=== PATIENT | male | born 1965 | race Caucasian/White ===

== ENCOUNTER 2024-02-20 17:08 | Emergency (ER) | payer MEDICARE, SELFPAY ==
[2024-02-20 17:08] VITALS: BP 160/107; PULSE 115; RESP 18; TEMP 36.8; O2SAT 98; BMI 24.2
--- NOTE | 2024-02-20 17:09 | CT_ITS ---
PROCEDURE INFORMATION: Exam: CTA Head With Contrast, Arteriography Exam date and time: 02/20/2024 5:26 PM Age: 58 years old Clinical indication: Stroke-like symptoms; Speech disturbance; Additional info: Possible stroke, R pupil>l difficult word find TECHNIQUE: Imaging protocol: Computed tomographic angiography of the head with contrast. Exam focused on the arteries. 3D rendering (Not supervised by radiologist): MIP and/or 3D reconstructed images were created by the technologist. Radiation optimization: All CT scans at this facility use at least one of these dose optimization techniques: automated exposure control; mA and/or kV adjustment per patient size (includes targeted exams where dose is matched to clinical indication); or iterative reconstruction. Contrast material: ISOVUE; Contrast volume: 80 ml; Contrast route: INTRAVENOUS (IV); COMPARISON: CT HEAD/BRAIN WO CON 02/20/2024 5:23 PM FINDINGS: ANTERIOR CIRCULATION: Right internal carotid artery: Intracranial segment is patent with no significant stenosis. No aneurysm. Right middle cerebral artery: No occlusion or significant stenosis. No aneurysm. Right anterior cerebral artery: No occlusion or significant stenosis. No aneurysm. Left internal carotid artery: Intracranial segment is patent with no significant stenosis. No aneurysm. Left middle cerebral artery: No occlusion or significant stenosis. No aneurysm. Left anterior cerebral artery: No occlusion or significant stenosis. No aneurysm. POSTERIOR CIRCULATION: Right vertebral artery: No occlusion or aneurysm. Moderate stenosis in the V4 segment of the right vertebral artery secondary to calcified atherosclerotic plaque. Left vertebral artery: No occlusion or significant stenosis. No aneurysm. Basilar artery: No occlusion or significant stenosis. No aneurysm. Right posterior cerebral artery: No occlusion or significant stenosis. No aneurysm. Left posterior cerebral artery: No occlusion or significant stenosis. No aneurysm. Brain: No definite mass, mass effect, or midline shift. Cerebral ventricles: No ventriculomegaly. Bones/joints: Unremarkable. No acute fracture. Soft tissues: Unremarkable. IMPRESSION: 1. No large vessel occlusion. 2. Moderate stenosis in the V4 segment of the right vertebral artery secondary calcified plaque.
--- NOTE | 2024-02-20 17:09 | CT_ITS ---
PROCEDURE INFORMATION: Exam: CT Head Without Contrast Exam date and time: 02/20/2024 5:23 PM Age: 58 years old Clinical indication: Stroke-like symptoms; Speech disturbance; Additional info: Possible stroke, R pupil>l difficult word find TECHNIQUE: Imaging protocol: Computed tomography of the head without contrast. Radiation optimization: All CT scans at this facility use at least one of these dose optimization techniques: automated exposure control; mA and/or kV adjustment per patient size (includes targeted exams where dose is matched to clinical indication); or iterative reconstruction. Other technique: STROKE PROTOCOL was implemented. COMPARISON: CT CERVICAL SPINE WO CON 02/20/2024 5:23 PM FINDINGS: Brain: Diffuse cerebral atrophy and white matter microangiopathic chronic ischemia in both hemispheres. No CT evidence of acute infarct, hemorrhage, mass or mass effect. Cerebral ventricles: No ventriculomegaly. Paranasal sinuses: Trace chronic bilateral maxillary sinusitis. The remaining paranasal sinuses are clear. Mastoid air cells: Visualized mastoid air cells are well aerated. Bones: Unremarkable. No acute fracture. Soft tissues: Unremarkable. IMPRESSION: Senescent brain changes but no CT evidence of acute brain injury. ASSESSMENT: ASPECTS ([place] Stroke Program Early CT Score) is 10.
--- NOTE | 2024-02-20 17:09 | CT_ITS ---
PROCEDURE INFORMATION: Exam: CTA Neck With Contrast Exam date and time: 02/20/2024 5:26 PM Age: 58 years old Clinical indication: Stroke-like symptoms; Speech disturbance; Additional info: Possible stroke, R pupil>l difficult word find TECHNIQUE: Imaging protocol: Computed tomographic angiography of the neck with contrast. Exam focused on the cervical segments of the vasculature. 3D rendering (Not supervised by radiologist): MIP and/or 3D reconstructed images were created by the technologist. Radiation optimization: All CT scans at this facility use at least one of these dose optimization techniques: automated exposure control; mA and/or kV adjustment per patient size (includes targeted exams where dose is matched to clinical indication); or iterative reconstruction. Contrast material: ISOVUE; Contrast volume: 80 ml; Contrast route: INTRAVENOUS (IV); COMPARISON: CT CERVICAL SPINE WO CON 02/20/2024 5:23 PM FINDINGS: Right common carotid artery: No stenosis. No dissection or occlusion. Right internal carotid artery: No stenosis of the extracranial segment. No dissection or occlusion. Right external carotid artery: No occlusion or stenosis of the origin. Left common carotid artery: No stenosis. No dissection or occlusion. Left internal carotid artery: No stenosis of the extracranial segment. No dissection or occlusion. Left external carotid artery: No occlusion or stenosis of the origin. Right vertebral artery: Moderate stenosis (approximately 50%) of the V4 segment of the right vertebral artery. No dissection or occlusion. Left vertebral artery: No stenosis. No dissection or occlusion. Soft tissues: Findings suggesting esophagectomy with gastric pull-through. Bones/joints: No acute fracture. IMPRESSION: No large vessel occlusion in the neck. There is a 50% stenosis in the V4 segment of the right vertebral artery. REFERENCES: NASCET CRITERIA. The degree of stenosis in the cervical segment of the internal carotid artery is based on NASCET criteria. Normal is no stenosis. Mild is less than 50% stenosis. Moderate is 50-69% stenosis. Severe is 70% to 99% stenosis. Total occlusion is no detectable patent lumen.
--- NOTE | 2024-02-20 17:11 | CT_ITS ---
PROCEDURE INFORMATION: Exam: CT Cervical Spine Without Contrast Exam date and time: 02/20/2024 5:23 PM Age: 58 years old Clinical indication: Injury or trauma; Fall; Other: Pain TECHNIQUE: Imaging protocol: Computed tomography of the cervical spine without contrast. Radiation optimization: All CT scans at this facility use at least one of these dose optimization techniques: automated exposure control; mA and/or kV adjustment per patient size (includes targeted exams where dose is matched to clinical indication); or iterative reconstruction. COMPARISON: CT HEAD/BRAIN WO CON 02/20/2024 5:23 PM FINDINGS: Bones: No acute fracture. Normal alignment. No significant disc bulge or herniation. No severe spinal canal stenosis. No significant neural foraminal narrowing. Lungs: Lung apices are normal. Soft tissues: Unremarkable. Suspected prior esophagectomy with gastric pull-through. IMPRESSION: No acute findings.
--- NOTE | 2024-02-20 17:11 | HMH.EDGENADL ---
Discharge Plan Disposition Chief Complaint: Altered Mental Status Clinical Impressions Clinical Impression: Encephalopathy, Acute CVA (cerebrovascular accident) Instructions Patient Instructions: DI for Altered Mental Status Discharge ED Provider: Uche Ramirez General Adult HPI General Chief complaint: Altered Mental Status Stated complaint: Fall Time Seen by Provider: 02/20/24 17:08 History of Present Illness HPI narrative: Patient is a 58-year-old male with largely unknown past medical history, has had previous CVA with reported no significant residual however he does get around his home with a walker and lives alone who presents emergency department for being found down. Patient states that he fell at 930 this morning however answers multiple questions with 930 . Per EMS report patient was found by his neighbor who called 911, patient states that he called 911 gives conflicting report. He denies any pain. He is encephalopathic. No other acute complaints at this time. Related Data Allergies Allergy/AdvReac Type Severity Reaction Status Date / Time No Known Allergies Allergy Verified 02/20/24 17:28 [facility] Disclaimer: The information contained in this section may have been updated after the patient was seen, as this information can be updated by other users. Social History Smoking Status: Unknown if ever smoked alcohol intake: current current occupational status: other Travel in the last 8 weeks: None ROS Obtained: Yes Systems reviewed as appropriate & no additional complaints except as documented Physical Exam General General appearance: alert and in no apparent distress Head Head exam: atraumatic and normocephalic Eye Eye exam: Present EOMI; Absent PERRL (Asymmetric pupils right greater than left) ENT ENT exam: Present mucous membranes moist Neck Neck exam: Present normal inspection Chest Chest inspection: Present normal inspection and symmetric chest wall rise Respiratory Respiratory exam: Present normal lung sounds bilaterally; Absent respiratory distress Cardiovascular Cardiovascular exam: Present regular rate and normal rhythm Abdominal Exam Abdominal exam: Present soft; Absent tenderness Extremities Exam Extremities exam: Present other (Scattered abrasions bilateral upper extremities) Neurological Exam Neurological exam: Present alert and oriented X3; Absent CN II-XII intact (Asymmetric pupils right greater than left, remainder of 2 through 12 intact grossly) Skin Skin exam: Present warm and dry Medical Decision Making Medical Records Screening: Per USPSTF and CDC recommendations, given the prevalence of disease in our region, it is our hospital?s policy to screen for HIV and viral Hepatitis for all patients aged 18 and over and those with ongoing risk factors. [place] Inquiry Pt receiving controlled substance: No Vital Signs: 02/20/24 17:08 Temperature 98.2 F Temperature Source Oral Pulse Rate [Radial] 115 H Respiratory Rate 18 Blood Pressure [Right Arm] 160/107 H Blood Pressure Mean [Right Arm] 124 Blood Pressure Source [Right Arm] Automatic Cuff Blood Pressure Position [Right Arm] Sitting 02 Sat by Pulse Oximetry 98 Oxygen Delivery Method Room Air Lab Data Lab Results 02/20/24 17:16: WBC 3.7 L, RBC 4.77, Hgb 12.0 L, Hct 38.3 L, MCV 80.2, MCH 25.0 L, MCHC 31.2 L, RDW 20.9 H, Plt Count 236, MPV 6.8 L, Neut % (Auto) 69.2, Lymph % (Auto) 21.1, [place] % (Auto) 6.1, Eos % (Auto) 0.3, Baso % (Auto) 3.3 H, Neut # (Auto) 2.6, Lymph # (Auto) 0.8, [place] # (Auto) 0.2, Eos # (Auto) 0.0, Baso # (Auto) 0.1, Sodium 139, Potassium 4.7, Chloride 97 L, Carbon Dioxide 18 L, Anion Gap 28.7 H, BUN 12, Creatinine 1.00, Estimated Creat Clear 77, Estimated GFR 77, Est GFR ( Amer) 93, Glucose 85, Calcium 10.3 H, Total Bilirubin 0.6, AST 29, ALT 17, Alkaline Phosphatase 46, Total Creatine Kinase 241 H, Total Protein 9.2 H, Albumin 5.2 H, Globulin 4.0 H, Albumin/Globulin Ratio 1.3, Triglycerides 249 H, Cholesterol 346 H, LDL Cholesterol Direct 168.55 H, VLDL Cholesterol 50 H, HDL Cholesterol 163 H, Cholesterol/HDL Ratio 2.1, Plasma/Serum Alcohol < 10 02/20/24 17:51: Urine Color Yellow, Urine Appearance Clear, Urine pH 6.0, Ur Specific [place] 1.020, Urine Protein 2+ A, Urine Glucose (UA) Negative, Urine Ketones 2+, Urine Blood Trace-i, Urine Nitrate Negative, Urine Bilirubin Negative, Urine Urobilinogen 0.2, Ur Leukocyte Esterase Negative 02/20/24 17:16 02/20/24 17:16 Orders (Tests/Meds): ED MEDICATIONS Generic Name Dose Route Start Last Admin Trade Name Freq PRN Reason Stop Dose Admin Lactated Ringer's 1,000 mls @ 999 mls/hr 02/20/24 17:51 Lactated Ringer's 1000 Ml Bag IV 02/20/24 18:51 .Q1H1M ONE Sodium Chloride 10 ml 02/20/24 17:09 Sodium Chloride 0.9% 10ml Flush Syringe IV 03/21/24 17:08 NEEDED PRN Maintain IV Site Sodium Chloride 10 ml 02/20/24 17:20 02/20/24 17:23 Sodium Chloride 0.9% 10ml Syr (Rad Only) IV 03/21/24 17:19 10 ml NEEDED PRN Administration Maintain IV Site Discontinued Medications Generic Name Dose Route Start Last Admin Trade Name Asadq PRN Reason Stop Dose Admin Iopamidol 80 ml 02/20/24 17:20 02/20/24 17:23 Iopamidol-370 (76%);100ml Bottle IV 02/20/24 17:21 80 ml ONCE ONE Administration Sodium Chloride 50 ml 02/20/24 17:20 02/20/24 17:23 0.9 % Sodium Chloride 50 Ml Vial IV 02/20/24 17:21 50 ml ONCE ONE Administration ORDERS Category Date Time Status CT angio head Stat Cat Scan 02/20/24 17:[address] angio neck Stat Cat Scan 02/20/24 17:[address] cervical spine wo con Stat Cat Scan 02/20/24 17:[address] head/brain wo con Stat Cat Scan 02/20/24 17:09 Completed Activated Partial Thrombo Time Stat Lab 02/20/24 17:16 Received Ammonia Stat Lab 02/20/24 17:09 Ordered CK [Creatine Kinase] Stat Lab 02/20/24 17:16 Results Complete Blood Count Auto Diff Stat Lab 02/20/24 17:16 Completed Comprehensive Metabolic Panel Stat Lab 02/20/24 17:16 Results Drug Screen,Urine Stat Lab 02/20/24 17:51 Received Ethyl Alcohol Stat Lab 02/20/24 17:16 Completed Lipid Panel Stat Lab 02/20/24 17:16 Results Prothrombin Time INR Stat Lab 02/20/24 17:16 Received Troponin I Q3H Lab 02/20/24 20:15 Ordered Troponin I Q3H Lab 02/20/24 23:15 Ordered Troponin I Stat Lab 02/20/24 17:16 Results Urinalysis and Microscopic Stat Lab 02/20/24 17:51 Results ECG Request Stat Y 02/20/24 17:09 Ordered ECG Data Tracing #1: Independently interpreted by me rate is 116, rhythm is regular, axis is normal, no ST elevation in anatomical contiguous leads, QTc 358 Medical Decision Narrative: In summary patient is a 58-year-old male with past medical history described above who presents emergency department after being found down. Patient is hemodynamically stable upon arrival, c-collar will be initiated given that he was found down with unknown functional baseline and has anisocoria and delayed word finding. Fingerstick nonactionable. Differential includes CVA, concussion, among others. Workup be conducted with hematologic labs, CTA head and neck, noncontrasted CT scan of the head cervical spine. Initial workup reviewed by me, hematologic labs are largely nonactionable, no RUTHIE or critical electrolyte abnormality although his anion gap is elevated, CK2 4 1, alcohol undetectably low. Patient was given a liter of crystalloid. The case was discussed with [facility] stroke nurse behavioral health care who recommends 324 mg of aspirin which will be administered. Dr. Haynes graciously accepted patient for transfer for continued evaluation at this time given undifferentiated Anisocoria in the history of previous stroke and altered mental status. Critical Care Critical Care Time Critical Care Time: Yes Attestation: On , the high probability of a clinically significant, sudden or life threatening deterioration of the following system(s) required my full and direct attention, intervention and personal management. The time I documented below is in addition to time spent performing reported procedures but includes the following listed in this critical care notation. Total Time Total Critical Care Time: 55
--- NOTE | 2024-02-20 17:13 | PC.NURSE ---
Manual BP: 190/110 FSBS: 91
--- NOTE | 2024-02-20 17:14 | PC.NURSE ---
Called RAD for pt to go to CT scan
--- NOTE | 2024-02-20 17:18 | PC.NURSE ---
PT to CT via stretcher
[2024-02-20] MEDS: SODIUM CHLORIDE 0.9% 10ML SYR (RAD ONLY) 10 ML IV (17:23)
[2024-02-20] MEDS: 0.9 % SODIUM CHLORIDE 50 ML VIAL IV (17:23)
[2024-02-20] MEDS: IOPAMIDOL-370 (76%);100ML BOTTLE 80 ML IV (17:23)
--- NOTE | 2024-02-20 17:24 | HMH.ITSTN ---
GFR completion/results were overrode for the use of contrast media by the Physician on a risk vs. benefit situation with this patient.
[2024-02-20 17:29] LABS: Basophils # 0.1 K/mm3 (0-0.2); Basophils % 3.3 % (0.1-2.0); Eosinophils % 0.3 % (0.1-12.0); Hematocrit 38.3 % (42.0-52.0); Lymphocytes # 0.8 K/mm3 (0.7-4.5); Lymphocytes % 21.1 % (10-50); Mean Corpuscular HGB Conc 31.2 g/dL (31.8-35.4); Mean Corpuscular Volume 80.2 fl (80-94); Mean Platelet Volume 6.8 fl (7.4-10.4); Monocytes # 0.2 K/mm3 (0.1-1.0); Monocytes % 6.1 % (1.7-9.3); Neutrophils # 2.6 K/mm3 (1.8-7.8); Neutrophils % 69.2 % (37.0-80.0); Platelet Count 236 K/mm3 (142-424); Red Blood Count 4.77 M/mm3 (4.60-6.20); Red Cell Distribution Width 20.9 % (11.5-17.5); White Blood Count 3.7 K/mm3 (4.8-10.8)
--- NOTE | 2024-02-20 17:31 | PC.NURSE ---
SPOKE WITH PT'S MOTHER SONU MILLS [phone], GAVE NUMBER TO CALL PT'S AUNT MARYBETH [phone]. AUNT USUALLY CHECKS ON PT. SPOKE WITH AUNT, REPORTS PT HAS BEEN WEAK FOR ABOUT 2 WEEKS, PT IS A DAILY DRINKER. APPROX LKN BEFORE LUNCH TIME YESTERDAY
--- NOTE | 2024-02-20 17:33 | ECG_ITS ---
APPROVED REPORT Exam: Resting ECG HR:116 bpm ECG Measurements Heart Rate 116 AXES ME 136 P -23 QRSd 88 QRS 63 QT 289 T 63 QTc 358 Conclusion SINUS TACHYCARDIA POSSIBLE LEFT ATRIAL ENLARGEMENT [-0.1mV P-WAVE IN V1/V2] NONSPECIFIC T-WAVE ABNORMALITY No STEMI Electronically signed by : KRISTAN BANKS, 02/26/2024 23:42:13
[2024-02-20 17:46] LABS: Activated Partial Thrombo Time 30.8 seconds (22.8-30.6); Alanine Aminotransferase 17 U/L (12-78); Albumin Level 5.2 g/dl (3.5-5.0); Albumin/Globulin Ratio 1.3 (1.1-1.8); Alkaline Phosphatase 46 U/L (38-126); Anion Gap 28.7 mEq/L (5-15); Aspartate Amino Transferase 29 U/L (17-59); Bilirubin,Total 0.6 mg/dl (0.2-1.3); Blood Urea Nitrogen 12 mg/dl (9-20); Calcium 10.3 mg/dl (8.4-10.2); Carbon Dioxide 18 mmol/L (22.0-30.0); Chloride 97 mmol/L (98-107); Creatine Kinase 241 U/L (55-170); Creatinine Clearance Estimated 77 mL/min (50-200); Estimated Glomerular Filt Rate 77 ml/min (>60); GFR (African American) 93 ML/MIN (>60); Glucose 85 mg/dl (74-100); INR 0.91 (0.9-1.1); Potassium 4.7 mmoL/L (3.5-5.1); Prothrombin Time 10.3 seconds (10.1-12.5); Sodium 139 mmol/L (136-145); Total Protein,Serum 9.2 g/dl (6.3-8.2); Triglycerides 249 mg/dl (30-150); VLDL Cholesterol 50 mg/dL (0-40)
[2024-02-20 17:52] LABS: Ethyl Alcohol < 10 mg/dl (0-10)
[2024-02-20 17:55] LABS: Chol/HDL Ratio 2.1 (1-3.5); Cholesterol 346 mg/dl (140-200); HDL Cholesterol 163 mg/dl (40-60)
[2024-02-20 17:55] LABS: Microscopic, Urine URINE MICROSCOPIC (MICROSCOPIC)
[2024-02-20 17:56] LABS: Direct LDL Cholesterol 168.55 mg/dL (100-129)
[2024-02-20 18:05] LABS: Appearance,Urine CLEAR (Clear); Blood, Urine TRACE-I (Negative); Color,Urine YELLOW (Yellow); Glucose,Urine (UA) Negative (Negative); Ketones,Urine 2+ (Negative); Leukocyte Esterase,Urine Negative (Negative); Nitrate,Urine Negative (Negative); Protein,Urine 2+ (Negative); Urobilinogen,Urine 0.2 EU/dl (0.2)
--- NOTE | 2024-02-20 18:07 | PC.NURSE ---
Called [facility] stroke navigator per Dr Ramirez to speak with them about this pt. Dr Ramirez is speaking with [facility] now
[2024-02-20 18:10] LABS: Bilirubin,Urine Negative (Negative)
[2024-02-20 18:14] LABS: Troponin I < 0.01 ng/ml (0.00-0.034)
[2024-02-20 18:20] LABS: Benzodiazepines Screen,Urine Negative ng/ml (<200)
[2024-02-20 18:21] LABS: Amphetamine/Metha Screen,Urine Negative ng/ml (<1000); Barbiturates Screen,Urine Negative ng/ml (<200)
[2024-02-20 18:22] LABS: Cannabinoid Screen,Urine Negative ng/ml (<50)
[2024-02-20 18:23] LABS: Cocaine Screen,Urine Negative ng/ml (<300); Methadone Screen,Urine Negative ng/ml (<300)
[2024-02-20] MEDS: ASPIRIN 81MG CHEWABLE TABLET 324 MG PO (18:23)
[2024-02-20 18:24] LABS: Opiate Screen,Urine Negative ng/ml (<300)
[2024-02-20] MEDS: LACTATED RINGERS 1000ML 1,000 ML 999 ML IV (18:24)
[2024-02-20 18:25] LABS: Phencyclidine Screen,Urine Negative ng/ml (<25)
[2024-02-20 18:27] LABS: Bacteria,Urine 1+ /lpf; RBC,Urine Occasional #/hpf (0-3); Squamous Epithelial Cell,Urine Occasional #/hpf (0-5); WBC,Urine Occasional #/hpf (0-3)
[2024-02-20] MEDS: levETIRAcetam 1,000 MG in 0.9 % SODIUM CHLORIDE 100 ML 220 MG IV (18:48)
--- NOTE | 2024-02-20 20:03 | PC.NURSE ---
Report called to SHANELL Goldstein
[2024-02-20 20:24] VITALS: BP 151/90; PULSE 82; RESP 14; TEMP 36.9; O2SAT 97
== END 2024-02-20 20:25 | disposition short-term general hospital (02) ==
PROVIDERS: Emergency Provider Emergency Medicine
DX: G93.40 Encephalopathy, unspecified (principal); I63.9 Cerebral infarction, unspecified; R41.82 Altered mental status, unspecified
CPT/HCPCS: 70450; 70496; 70498; 72125; 80053; 80061; 80307; 80320; 81001; 82550; 84484; 85025; 85610; 85730; 93005; 96360; 96361; 96374; 99291; G0480; J1953; J7120; Q9967

== ENCOUNTER 2024-10-15 09:05 | Outpatient (CLI) | payer MEDICARE, SELFPAY ==
--- OUTSIDE RECORDS SUMMARY | 2024-08-24 05:36 | XMS_ITS | Continuity of Care Document ---
Author Organization [facility] [employer] Phone Care Team Providers Care Occasional Caregiver Name Role Phone TABATHA CAPONE Unavailable TABATHA CAPONE Admitting NO, FAMILY P Primary Care TABATHA CAPONE Primary Attending ALLERGIES AND ADVERSE REACTIONS FAMILY HISTORY MEDICATIONS SOCIAL HISTORY VITAL SIGNS HEALTH CONCERNS ENCOUNTERS CARE TEAM
--- OUTSIDE RECORDS SUMMARY | 2024-10-15 09:10 | XMS_ITS | Encounter Summary ---
Author Organization [facility] Address [address] [place] [address] Care Team Providers Care Director Hardware Name Role Phone Unavailable Primary Care Provider Unavailabl e Encounter Details Date Type Department Care Team (Late st Contact Info) Description 01/08/2019 Transcribed Document [facility] Family Medicine [address] [place] [address] ProviderMary Kate MD [address] [place] [address] Social History Tobacco Use Types Packs/Day Years Used Date Smoking Tobacco: Never Assessed Sex and Gender Information Value Date Recorded Sex Assigned at Not on file Legal Sex Male 5:22 PM CDT Gender Identity Not on file Sexual Orientation Not on file documented as of this encounter Miscellaneous Notes * Cerner Conversion Note - Mary Kate ProviderMD - 01/08/2019 6:00 PM CDT Discharge Summary, PT Entered On: 01/14/2019 7:57 EDT Performed On: 01/08/2019 18:00 EDT by YUMIKO YEH, PT Discharge Summary Reason for Discharge : Discharged from hospital Discharge Summary Comment, PT : At time of discharge from hospital, pt had met 2/3 acute care goals and was discharged home. At time of last PT treatment session, pt's functional status was documented as follows: BP assessed during treatment: at rest in long sitting 138/88 mmHg and after gait 129/83 mmHg. Supine-sit: Modified Independent with HOB elevated; sit-stand from EOB Supervision/ stand-sit UIC: SBA with verbal cues on proper hand placement for safety. He was Supervision during sitting and standing balance to put boxers on, and was Supervision with standing at sink to wash his face. He ambulated ~405' with RWx CGA. He demonstrated a slow pace and even step length. He did not lose his balance during gait. 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 Pt will perform 12-15 reps BLE ther-ex for improvement in ROM/strength. Patient will ambulate 100' with RWx CGA for household distances. Date to Meet : 01/12/2019 EDT 01/12/2019 EDT 01/13/2019 EDT Goal Status : Goal met Progressing, continue Goal met Date Met : 01/06/2019 EDT 01/08/2019 EDT YUMIKO YEH, PT - 01/14/2019 7:56 EDT YUMIKO YEH, PT - 01/14/2019 7:56 EDT YUMIKO YEH, PT - 01/14/2019 7:56 EDT Electronically signed by Jaron Larsen Conversion Supervisor [employer] at 08/08/2022 11:34 PM CDT documented in this encounter Plan of Treatment Not on file documented as of this encounter Visit Diagnoses Not on filedocumented in this encounter
--- OUTSIDE RECORDS SUMMARY | 2024-10-15 09:10 | XMS_ITS | Clinical Summary ---
Author Organization [facility] Address [address] [place] [id number] Care Team Providers Care Width Stripper Name Role Phone Unavailable Primary Care Provider Unavailabl e Social History Tobacco Use Types Packs/Day Years Used Date Smoking Tobacco: Never Assessed Sex and Gender Information Value Date Recorded Sex Assigned at Not on file Legal Sex Male 5:22 PM CDT Gender Identity Not on file Sexual Orientation Not on file Plan of Treatment Not on file
--- OUTSIDE RECORDS SUMMARY | 2024-10-15 09:10 | XMS_ITS | Encounter Summary ---
Author Organization [facility] Address [address] [place] [address] Care Team Providers Care Deicer Finisher Name Role Phone Unavailable Primary Care Provider Unavailabl e Encounter Details Date Type Department Care Team (Late st Contact Info) Description 03/04/2019 Transcribed Document [facility] [place] [facility] [address] [place] [address] ProviderMary Kate MD [address], [place] [id number] Social History Tobacco Use Types Packs/Day Years Used Date Smoking Tobacco: Never Assessed Sex and Gender Information Value Date Recorded Sex Assigned at Not on file Legal Sex Male 5:22 PM CDT Gender Identity Not on file Sexual Orientation Not on file documented as of this encounter Miscellaneous Notes * Cerner Conversion Note - Mary Kate ProviderMD - 03/04/2019 8:03 AM 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 Name: [place] Viet Vasquez/Sex: 1965 Male Med Rec #: [id number] Physician: RAZIA LANTIGUA MD-GAE Financial #: [id number] Pt. Type: O Room/Bed: [facility] [place]/ Admit/Disch: 03/04/19 07:03:00 - Institution: [facility]ayan - Case Attendance Entry 1 Entry 2 Entry 3 Case Attendee RAZIA LANTIGUA MD-GAE BROWNING, JANICE R, TAYLOR, KAREN J., RN JUNIOR UNDERWRITER-ANS Role Performed Surgeon/Proceduralist, PAYROLL AND BENEFITS COORDINATOR/Nurse Set Up And Lay Out Inspector Mechanic And Welder, First First Time In 03/04/19 07:57:00 03/04/19 07:55:00 03/04/19 07:55:00 Time Out 03/04/19 08:11:00 03/04/19 08:11:00 03/04/19 08:11:00 Procedure Esophagogastroduodenosco Esophagogastroduodenosco Esophagogastroduodenosco py, Gastric Biopsy py, Gastric Biopsy py, Gastric Biopsy Other Attendee Superficial Wound Closed By: Last Modified By: MARLENE OROZCO RN TAYLOR, KAREN J., RN TAYLOR, KAREN J., RN 03/04/19 08:09:39 03/04/19 08:09:39 03/04/19 08:09:39 Entry 4 Case Attendee TATYANA BHATT Performed Scrub, First Time In 03/04/19 07:55:00 Time Out 03/04/19 08:11:00 Procedure Esophagogastroduodenosco py, Gastric Biopsy Other Attendee Superficial Wound Closed By: Last Modified By: MALRENE OROZCO RN 03/04/19 08:09:39 [facility] - Case Attendance Audit 03/04/19 08:09:39 Gaming Table Operator: AIDEE Modifier: AIDEE 1 <+> Time Out 1 <*> Procedure Esophagogastroduodenoscopy, Gastric Biopsy 2 <+> Time Out 2 <*> Procedure Esophagogastroduodenoscopy, Gastric Biopsy 3 <+> Time Out 3 <*> Procedure Esophagogastroduodenoscopy, Gastric Biopsy 4 <+> Time Out 4 <*> Procedure Esophagogastroduodenoscopy, Gastric Biopsy 03/04/19 08:07:07 Gaming Table Operator: AIDEE Modifier: [email or web address] 1 <*> Procedure Esophagogastroduodenoscopy 2 <*> Procedure Esophagogastroduodenoscopy 3 <*> Procedure Esophagogastroduodenoscopy 4 <*> Procedure Esophagogastroduodenoscopy 03/04/19 07:57:39 Gaming Table Operator: AIDEE Modifier: PARVEZJ 1 <*> Time In 03/04/19 07:55:00 1 <*> Procedure Esophagogastroduodenoscopy [facility] - Case Times Entry 1 Patient In Room Time 03/04/19 07:55:00 Out Room Time 03/04/19 08:11:00 Anesthesia Start Time 03/04/19 07:55:00 Stop Time 03/04/19 08:11:00 Anesthesia Ready 03/04/19 07:57:00 Surgery / Procedure Times Start Time 03/04/19 08:03:00 Stop Time 03/04/19 08:09:00 Last Modified By: MARLENE OROZCO RN 03/04/19 08:09:34 [facility] - Case Times Audit 03/04/19 08:09:34 Gaming Table Operator: [email or web address] Modifier: [email or web address] <+> 1 Out Room Time <+> 1 Stop Time <+> 1 Stop Time 03/04/19 08:03:09 Gaming Table Operator: [email or web address] Modifier: [email or web address] <+> 1 Start Time [facility] - Cultures and Spec Summary Entry 1 Cultrures and Specimens Specimen Ordered: Yes Test(s) Routine/Path-Lab Requested/Final Disposition Last Modified By: MARLENE OROZCO RN 03/04/19 08:07:28 General Comments: mattie, distal esophagus biopsy [facility] - Delays Entry 1 Delay Reason Other Duration 0 Minute(s) Comment NO DELAY Last Modified By: MARLENE OROZCO RN 03/04/19 07:57:22 [facility] - Departure from OR Entry 1 Integumentary Assessment Integumentary WDL Assessment WDL Transfer/Handoff Transfer to PACU Phase I Post-op Transport Stretcher/Gurney Via Patient Transport MARLENE OROZCO RN, Accompanied by TAB ROJAS APRN-GERALDINE Last Modified By: MARLENE OROZCO RN 03/04/19 07:57:31 [facility] - Endoscopy Details Entry 1 Abdomen Procedure Soft, Non-Tender Assessment Procedure Abdomen 03/04/19 07:57:00 Assessment D/T Radio Frequency Ablation Last Modified By: MARLENE OROZCO RN 03/04/19 07:57:48 [facility] - Fire Risk Assessment Entry 1 Fire Info Surgical Site or 1- Yes Incision Above the Xyphoid Open O2 Source 1- Yes (Mask or Cannula) Available Ignition 1- Yes (ESU, Laser, Light Source) Fire Risk 3 Assessment Score Fire Score Fire Risk Yes Assessment Complete Fire Risk MARLENE OROZCO, lead web application developer Verified By Fire Risk 03/04/19 07:58:00 Assessment Verified Date/Time Fire Risk High Risk Protocol Yes Implemented Standard Fire Yes Safety Precautions Followed Last Modified By: MARLENE OROZCO RN 03/04/19 07:58:08 [facility] - General Case Body Repairer 1 Case Information OR Endo 02 [facility] Case Level 1 Room Verified Yes Wound Class II - Clean-Contaminated Specialty SN Gastroenterology Anesthesia Type MAC ASA Class 2 Diagnosis Preop Diagnosis history of zurdo fritz tear and severe esophagitis Postop Same As Preop No Postop Diagnosis hiatal hernia and esophagitis Last Modified By: MARLENE OROZCO RN 03/04/19 08:10:07 [facility] [place] - [place] Case Data Audit 03/04/19 08:10:07 Gaming Table Operator: [email or web address] Modifier: AIDEE <+> 1 Postop Diagnosis [facility] - Intraoperative Assessment Entry 1 Valid History / Yes Physical in Chart Preoperative Yes Checklist Reviewed/Evaluated Allergies Reviewed Yes Patient is Latex No Sensitive Level of WDL Consciousness (WDL = Alert, Oriented to Person, Place, and Time) Present Upon ECG monitored Arrival to OR Last Modified By: MARLENE OROZCO RN 03/04/19 07:59:19 [facility] - Intraoperative Equipment Entry 1 Type Scope Equipment Intraop Monitoring Electrocardiogram Three lead placement (ECG) Electrode Placement Blood Pressure Arm, left upper Location Pulse Oximeter Hand, right Probe Site Antiembolic Devices Scopes Flexible Endoscopes Gastroscope Used Scope Serial 2500 Number/Identificatio n Number Photo/Video Documentation Photo Yes Video No Last Modified By: MARLENE OROZCO RN 03/04/19 07:59:36 [facility] [place] - Patient Positioning Entry 1 Procedure Esophagogastroduodenosco py, Gastric Biopsy Body Position Lateral, right side up Left Arm Position Resting at side Right Arm Position Resting at side Left Leg Position Other Right Leg Position Other Position Comments Right leg over left leg uncrossed Feet Uncrossed Yes Pressure Points Yes Checked Positioning Devices Roll (Other) Positioned By MARLENE OROZCO RN Position Verified Positioning Yes Verified by Surgeon Last Modified By: MARLENE OROZCO RN 03/04/19 08:07:08 [facility] - Patient Positioning Audit 03/04/19 08:07:08 Gaming Table Operator: [email or web address] Modifier: [email or web address] 1 <*> Procedure Esophagogastroduodenoscopy [facility] - Sign In Entry 1 Patient, Site, Yes Procedure Identified Surgical Consent Yes Confirmed Relevant Surgical Yes Documents Available Surgical Site N/A Marked by person performing procedure Allergies No Airway Hypothermia Risk No Warming Measures No Taken Last Modified By: MARLENE OROZCO RN 03/04/19 08:00:23 [facility] - Sign Out Entry 1 RN Confirmation Surgical Yes Procedure(s) Identified Instrument, Sponge N/A and Sharps Counts Correct/Documented Equipment Problems N/A Documented Specimen Labeled Yes Correctly Urinary Catheter N/A Documented in IView Safety Checklist Yes Elements Complete? RN Sign Out MARLENE OROZCO RN Signature RN Sign Out 03/04/19 08:10:00 Signature Date/Time Plan of Care Outcome - Fire Risk OUTCOME STATEMENT: Goal met Patient is free from injury related to surgical fire Plan of Care Outcome - Pt Positioning OUTCOME STATEMENT: Goal met Absence of signs and symptoms of positioning injury. Plan of Care Outcome - Skin Prep OUTCOME STATEMENT: Goal met Intraoperative care is consistent with measures to prevent infection Plan of Care Outcome - Xray/Images OUTCOME STATEMENT: N/A Absence of observable signs or symptoms of radiation injury Plan of Care Outcome - Counts OUTCOME STATEMENT: N/A Absence of signs and symptoms of injury related to extraneous objects Last Modified By: MARLENE OROZCO RN 03/04/19 08:10:26 [facility] - Surgical Procedures Entry 1 Entry 2 Procedure Esophagogastroduodenosco Gastric Biopsy py Modifiers Additional Procedure Description Primary Procedure Yes No Primary Surgeon RAZIA LANTIGUA MD-GAE HAAS, LAURIE, MD-GAE Start 03/04/19 08:03:00 03/04/19 08:03:00 Stop 03/04/19 08:09:00 03/04/19 08:09:00 Physician States Cecum Reached Anesthesia Type MAC MAC Specialty SN Gastroenterology SN Gastroenterology Wound Class II - Clean-Contaminated II - Clean-Contaminated Last Modified By: MARLENE OROZCO RN TAYLOR, KAREN J., RN 03/04/19 08:10:13 03/04/19 08:10:13 [facility] - Surgical Procedures Audit 03/04/19 08:10:13 Gaming Table Operator: AIDEE Modifier: AIDEE <+> 1 Stop <+> 2 Stop 03/04/19 08:07:03 Gaming Table Operator: AIDEE Modifier: AIDEE <+> 1 Start <+> 2 Procedure <+> 2 Primary Procedure <+> 2 Primary Surgeon <+> 2 Specialty <+> 2 Start <+> 2 Wound Class <+> 2 Anesthesia Type 03/04/19 08:00:37 Gaming Table Operator: [email or web address] Modifier: [email or web address] 1 <*> Procedure Esophagogastroduodenoscopy 1 <+> Specialty [facility] - Time Out Entry 1 Procedure to be Esophagogastroduodenosco Performed py, Gastric Biopsy Time Out Time Out Pause Time 03/04/19 08:00:00 All activity Yes suspended (unless life threatening emergency) Team Verbally Correct patient Confirms Information identity, Correct side and site are marked, Consent form is present and accurate, Agreement on the procedure to be done, Correct patient position, Relevant images/results properly labeled/appropriately displayed Antibiotic N/A Prophylaxis Administered Or In Progress Within the Last 60 Minutes Beta Catrachito N/A Administered Venous N/A Thromboembolism Prophylaxis Required Anticipated Critical Events Surgeon None expected Last Modified By: MARLENE OROZCO RN 03/04/19 08:07:08 [facility] - Time Out Audit 03/04/19 08:07:08 Gaming Table Operator: [email or web address] Modifier: [email or web address] 1 <*> Procedure to be Performed Esophagogastroduodenoscopy Case Comments <None> Finalized By: MARLENE OROZCO RN Document Signatures Signed By: MARLENE OROZCO RN 03/04/19 08:11 documented in this encounter Plan of Treatment Not on file documented as of this encounter Visit Diagnoses Not on filedocumented in this encounter
--- OUTSIDE RECORDS SUMMARY | 2024-10-15 09:10 | XMS_ITS | Encounter Summary ---
Author Organization [facility] Address [address] [place] [address] Care Team Providers Care Forger Helper Name Role Phone Unavailable Primary Care Provider Unavailabl e Encounter Details Date Type Department Care Team (Late st Contact Info) Description 03/04/2019 Transcribed Document [facility] [place] [address] [place] [address] ProviderMary Kate MD [address], [place] [address] Social History Tobacco Use Types Packs/Day Years Used Date Smoking Tobacco: Never Assessed Sex and Gender Information Value Date Recorded Sex Assigned at Not on file Legal Sex Male 5:22 PM CDT Gender Identity Not on file Sexual Orientation Not on file documented as of this encounter Miscellaneous Notes * Cerner Conversion Note - Mary Kate ProviderMD - 03/04/2019 8:03 AM WOOD 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 Name: LINAPROSPER/Sex: 1965 Male Med Rec #: [id number] Physician: RAZIA LANTIGUA MD-GAE Financial #: [id number] Pt. Type: O Room/Bed: [facility] [place]/ Admit/Disch: 03/04/19 07:03:00 - Institution: [facility] PACU Case Times Entry 1 In PACU I 03/04/19 08:15:00 Ready for PACU 03/04/19 08:46:00 Discharge Discharge from PACU 03/04/19 08:46:00 I [facility] PACU Case Times Audit 03/04/19 08:46:41 Enrollment Manager: [id number] Modifier: [id number] <+> 1 Ready for PACU Discharge <+> 1 Discharge from PACU I Finalized By: Amee Valaldares Rn Document Signatures Signed By: Amee Valladares Rn 03/04/19 08:46 documented in this encounter Plan of Treatment Not on file documented as of this encounter Visit Diagnoses Not on filedocumented in this encounter
--- OUTSIDE RECORDS SUMMARY | 2024-10-15 09:10 | XMS_ITS | Encounter Summary ---
Author Organization [employer] Address [address] [place] [address] Care Team Providers Care Plastics Fabricator Name Role Phone Unavailable Primary Care Provider Unavailabl e Encounter Details Date Type Department Care Team (Late st Contact Info) Description 03/04/2019 Transcribed Document [facility] [place] [facility] [address] [place] [address] ProviderMary Kate MD [address] [place] [address] Social History Tobacco Use Types Packs/Day Years Used Date Smoking Tobacco: Never Assessed Sex and Gender Information Value Date Recorded Sex Assigned at Not on file Legal Sex Male 5:22 PM CDT Gender Identity Not on file Sexual Orientation Not on file documented as of this encounter Miscellaneous Notes * Cerner Conversion Note - Mary Kate Cardenas MD - 03/04/2019 8:29 AM HUMAN [employer]OURCES TEMP Patient Education Materials Follows: Hiatal Hernia A hiatal hernia occurs when part of the stomach slides above the muscle that separates the abdomen from the chest (diaphragm). A person can be born with a hiatal hernia (congenital), or it may develop over time. In almost all cases of hiatal hernia, only the top part of the stomach pushes through the diaphragm. Many people have a hiatal hernia with no symptoms. The larger the hernia, the more likely it is that you will have symptoms. In some cases, a hiatal hernia allows stomach acid to flow back into the tube that carries food from your mouth to your stomach (esophagus). This may cause heartburn symptoms. Severe heartburn symptoms may mean that you have developed a condition called gastroesophageal reflux disease (GERD). What are the causes? This condition is caused by a weakness in the opening (hiatus) where the esophagus passes through the diaphragm to attach to the upper part of the stomach. A person may be born with a weakness in the hiatus, or a weakness can develop over time. What increases the risk? This condition is more likely to develop in: ??? Older people. Age is a major risk factor for a hiatal hernia, especially if you are over the age of 50. ??? women. ??? People who are overweight. ??? People who have frequent constipation. What are the signs or symptoms? Symptoms of this condition usually develop in the form of GERD symptoms. Symptoms include: ??? Heartburn. ??? Belching. ??? Indigestion. ??? Trouble swallowing. ??? Coughing or wheezing. ??? Sore throat. ??? Hoarseness. ??? Chest pain. ??? Nausea and vomiting. How is this diagnosed? This condition may be diagnosed during testing for GERD. Tests that may be done include: ??? X-rays of your stomach or chest. ??? An upper gastrointestinal (GI) series. This is an X-ray exam of your GI tract that is taken after you swallow a chalky liquid that shows up clearly on the X-ray. ??? Endoscopy. This is a procedure to look into your stomach using a thin, flexible tube that has a tiny camera and light on the end of it. How is this treated? This condition may be treated by: ??? Dietary and lifestyle changes to help reduce GERD symptoms. ??? Medicines. These may include: ? Hkvq-kep-ghlvfly antacids. ? Medicines that make your stomach empty more quickly. ? Medicines that block the production of stomach acid (H2 blockers). ? Stronger medicines to reduce stomach acid (proton pump inhibitors). ??? Surgery to repair the hernia, if other treatments are not helping. If you have no symptoms, you may not need treatment. Follow these instructions at home: Lifestyle and activity ??? Do not use any products that contain nicotine or tobacco, such as cigarettes and e-cigarettes. If you need help quitting, ask your health care provider. ??? Try to achieve and maintain a healthy body weight. ??? Avoid putting pressure on your abdomen. Anything that puts pressure on your abdomen increases the amount of acid that may be pushed up into your esophagus. ? Avoid bending over, especially after eating. ? Raise the head of your bed by putting blocks under the legs. This keeps your head and esophagus higher than your stomach. ? Do not wear tight clothing around your chest or stomach. ? Try not to strain when having a bowel movement, when urinating, or when lifting heavy objects. Eating and drinking ??? Avoid foods that can worsen GERD symptoms. These may include: ? Fatty foods, like fried foods. ? [place] fruits, like oranges or lemon. ? Other foods and drinks that contain acid, like orange juice or tomatoes. ? Spicy food. ? Chocolate. ??? Eat frequent small meals instead of three large meals a day. This helps prevent your stomach from getting too full. ? Eat slowly. ? Do not lie down right after eating. ? Do not eat 1?2 hours before bed. ??? Do not drink beverages with caffeine. These include cola, coffee, cocoa, and tea. ??? Do not drink alcohol. General instructions ??? Take ekxg-wqn-boslduq and prescription medicines only as told by your health care provider. ??? Keep all follow-up visits as told by your health care provider. This is important. Contact a health care provider if: ??? Your symptoms are not controlled with medicines or lifestyle changes. ??? You are having trouble swallowing. ??? You have coughing or wheezing that will not go away. Get help right away if: ??? Your pain is getting worse. ??? Your pain spreads to your arms, neck, jaw, teeth, or back. ??? You have shortness of breath. ??? You sweat for no reason. ??? You feel sick to your stomach (nauseous) or you vomit. ??? You vomit blood. ??? You have bright red blood in your stools. ??? You have black, tarry stools. This information is not intended to replace advice given to you by your health care provider. Make sure you discuss any questions you have with your health care provider. Document Released: 06/28/2004 Document Revised: 11/11/2017 Document Reviewed: 11/11/2017 [employer] Interactive Patient Education ? 2019 [employer] Esophagitis Esophagitis is inflammation of the esophagus. The esophagus is the tube that carries food and liquids from your mouth to your stomach. Esophagitis can cause soreness or pain in the esophagus. This condition can make it difficult and painful to swallow. What are the causes? Most causes of esophagitis are not serious. Common causes of this condition include: ??? Gastroesophageal reflux disease (GERD). This is when stomach contents move back up into the esophagus (reflux). ??? Repeated vomiting. ??? An allergic-type reaction, especially caused by food allergies (eosinophilic esophagitis). ??? Injury to the esophagus by swallowing large pills with or without water, or swallowing certain types of medicines. ??? Swallowing (ingesting) harmful chemicals, such as household cleaning products. ??? Heavy alcohol use. ??? An infection of the esophagus.?This most often occurs in people who have a weakened immune system. ??? Radiation or chemotherapy treatment for cancer. ??? Certain diseases such as sarcoidosis, Crohn disease, and scleroderma. What are the signs or symptoms? Symptoms of this condition include: ??? Difficult or painful swallowing. ??? Pain with swallowing acidic liquids, such as citrus juices. ??? Pain with burping. ??? Chest pain. ??? Difficulty breathing. ??? Nausea. ??? Vomiting. ??? Pain in the abdomen. ??? Weight loss. ??? Ulcers in the mouth. ??? Patches of white material in the mouth (candidiasis). ??? Fever. ??? Coughing up blood or vomiting blood. ??? Stool that is black, tarry, or bright red. How is this diagnosed? Your health care provider will take a medical history and perform a physical exam. You may also have other tests, including: ??? An endoscopy to examine your stomach and esophagus with a small camera. ??? A test that measures the acidity level in your esophagus. ??? A test that measures how much pressure is on your esophagus. ??? A barium swallow or modified barium swallow to show the shape, size, and functioning of your esophagus. ??? Allergy tests. How is this treated? Treatment for this condition depends on the cause of your esophagitis. In some cases, steroids or other medicines may be given to help relieve your symptoms or to treat the underlying cause of your condition. You may have to make some lifestyle changes, such as: ??? Avoiding alcohol. ??? Quitting smoking. ??? Changing your diet. ??? Exercising. ??? Changing your sleep habits and your sleep environment. Follow these instructions at home: Take these actions to decrease your discomfort and to help avoid complications. Diet ??? Follow a diet as recommended by your health care provider. This may involve avoiding foods and drinks such as: ? Coffee and tea (with or without caffeine). ? Drinks that contain alcohol. ? Energy drinks and sports drinks. ? Carbonated drinks or sodas. ? Chocolate and cocoa. ? Peppermint and mint flavorings. ? Garlic and onions. ? Horseradish. ? Spicy and acidic foods, including peppers, chili powder, obrien powder, vinegar, hot sauces, and barbecue sauce. ? [place] fruit juices and citrus fruits, such as oranges, boogie, and limes. ? Tomato-based foods, such as red sauce, chili, salsa, and pizza with red sauce. ? Fried and fatty foods, such as donuts, occitan fries, potato chips, and high-fat dressings. ? High-fat meats, such as hot dogs and fatty cuts of red and white meats, such as rib eye steak, sausage, ham, and hanley. ? High-fat dairy items, such as whole milk, butter, and cream cheese. ??? Eat small, frequent meals instead of large meals. ??? Avoid drinking large amounts of liquid with your meals. ??? Avoid eating meals during the 2?3 hours before bedtime. ??? Avoid lying down right after you eat. ??? Do not exercise right after you eat. ??? Avoid foods and drinks that seem to make your symptoms worse. General instructions ??? Pay attention to any changes in your symptoms. ??? Take lacv-mnd-vevvfgp and prescription medicines only as told by your health care provider. Do not take aspirin, ibuprofen, or other NSAIDs unless your health care provider told you to do so. ??? If you have trouble taking pills, use a pill splitter to decrease the size of the pill. This will decrease the chance of the pill getting stuck or injuring your esophagus on the way down. Also, drink water after you take a pill. ??? Do not use any tobacco products, including cigarettes, chewing tobacco, and e-cigarettes. If you need help quitting, ask your health care provider. ??? Wear loose-fitting clothing. Do not wear anything tight around your waist that causes pressure on your abdomen. ??? Raise (elevate) the head of your bed about 6 inches (15 cm). ??? Try to reduce your stress, such as with yoga or meditation. If you need help reducing stress, ask your health care provider. ??? If you are overweight, reduce your weight to an amount that is healthy for you. Ask your health care provider for guidance about a safe weight loss goal. ??? Keep all follow-up visits as told by your health care provider. This is important. Contact a health care provider if: ??? You have new symptoms. ??? You have unexplained weight loss. ??? You have difficulty swallowing, or it hurts to swallow. ??? You have wheezing or a persistent cough. ??? Your symptoms do not improve with treatment. ??? You have frequent heartburn for more than two weeks. Get help right away if: ??? You have severe pain in your arms, neck, jaw, teeth, or back. ??? You feel sweaty, dizzy, or light-headed. ??? You have chest pain or shortness of breath. ??? You vomit and your vomit looks like blood or coffee grounds. ??? Your stool is bloody or black. ??? You have a fever. ??? You cannot swallow, drink, or eat. This information is not intended to replace advice given to you by your health care provider. Make sure you discuss any questions you have with your health care provider. Document Released: 05/16/2005 Document Revised: 09/13/2016 Document Reviewed: 08/03/2015 [employer] Interactive Patient Education ? 2019 [employer] Monitored Anesthesia Care, Care After These instructions provide you with information about caring for yourself after your procedure. Your health care provider may also give you more specific instructions. Your treatment has been planned according to current medical practices, but problems sometimes occur. Call your health care provider if you have any problems or questions after your procedure. What can I expect after the procedure? After your procedure, you may: ??? Feel sleepy for several hours. ??? Feel clumsy and have poor balance for several hours. ??? Feel forgetful about what happened after the procedure. ??? Have poor judgment for several hours. ??? Feel nauseous or vomit. ??? Have a sore throat if you had a breathing tube during the procedure. Follow these instructions at home: For at least 24 hours after the procedure: ??? Have a responsible adult stay with you. It is important to have someone help care for you until you are awake and alert. ??? Rest as needed. ??? Do not: ? Participate in activities in which you could fall or become injured. ? Drive. ? Use heavy machinery. ? Drink alcohol. ? Take sleeping pills or medicines that cause drowsiness. ? Make important decisions or sign legal documents. ? Take care of children on your own. Eating and drinking ??? Follow the diet that is recommended by your health care provider. ??? If you vomit, drink water, juice, or soup when you can drink without vomiting. ??? Make sure you have little or no nausea before eating solid foods. General instructions ??? Take wxnx-qih-rxnmnbh and prescription medicines only as told by your health care provider. ??? If you have sleep apnea, surgery and certain medicines can increase your risk for breathing problems. Follow instructions from your health care provider about wearing your sleep device: ? Anytime you are sleeping, including during daytime naps. ? While taking prescription pain medicines, sleeping medicines, or medicines that make you drowsy. ??? If you smoke, do not smoke without supervision. ??? Keep all follow-up visits as told by your health care provider. This is important. Contact a health care provider if: ??? You keep feeling nauseous or you keep vomiting. ??? You feel light-headed. ??? You develop a rash. ??? You have a fever. Get help right away if: ??? You have trouble breathing. Summary ??? For several hours after your procedure, you may feel sleepy and have poor judgment. ??? Have a responsible adult stay with you for at least 24 hours or until you are awake and alert. This information is not intended to replace advice given to you by your health care provider. Make sure you discuss any questions you have with your health care provider. Document Released: 07/29/2016 Document Revised: 11/22/2017 Document Reviewed: 07/29/2016 [employer] Interactive Patient Education ? 2019 [employer] Esophagogastroduodenoscopy, Care After Refer to this sheet in the next few weeks. These instructions provide you with information about caring for yourself after your procedure. Your health care provider may also give you more specific instructions. Your treatment has been planned according to current medical practices, but problems sometimes occur. Call your health care provider if you have any problems or questions after your procedure. What can I expect after the procedure? After the procedure, it is common to have: ??? A sore throat. ??? Nausea. ??? Bloating. ??? Dizziness. ??? Fatigue. Follow these instructions at home: ??? Do not eat or drink anything until the numbing medicine (local anesthetic) has worn off and your gag reflex has returned. You will know that the local anesthetic has worn off when you can swallow comfortably. ??? Do not drive for 24 hours if you received a medicine to help you relax (sedative). ??? If your health care provider took a tissue sample for testing during the procedure, make sure to get your test results. This is your responsibility. Ask your health care provider or the department performing the test when your results will be ready. ??? Keep all follow-up visits as told by your health care provider. This is important. Contact a health care provider if: ??? You cannot stop coughing. ??? You are not urinating. ??? You are urinating less than usual. Get help right away if: ??? You have trouble swallowing. ??? You cannot eat or drink. ??? You have throat or chest pain that gets worse. ??? You are dizzy or light-headed. ??? You faint. ??? You have nausea or vomiting. ??? You have chills. ??? You have a fever. ??? You have severe abdominal pain. ??? You have black, tarry, or bloody stools. This information is not intended to replace advice given to you by your health care provider. Make sure you discuss any questions you have with your health care provider. Document Released: 03/25/2013 Document Revised: 09/13/2016 Document Reviewed: 03/01/2016 [employer] Interactive Patient Education ? 2019 [employer] documented in this encounter Plan of Treatment Not on file documented as of this encounter Visit Diagnoses Not on filedocumented in this encounter
--- OUTSIDE RECORDS SUMMARY | 2024-10-15 09:10 | XMS_ITS | Encounter Summary ---
Author Organization [employer] Address [address] [place] [address] Care Team Providers Care Industrial Photographer Name Role Phone Unavailable Primary Care Provider Unavailabl e Encounter Details Date Type Department Care Team (Late st Contact Info) Description 03/04/2019 Transcribed Document [facility] [address] [place], [place] [id number] ProviderMary Kate MD [address], [place] [address] Social History Tobacco Use Types Packs/Day Years Used Date Smoking Tobacco: Never Assessed Sex and Gender Information Value Date Recorded Sex Assigned at Not on file Legal Sex Male 5:22 PM CDT Gender Identity Not on file Sexual Orientation Not on file documented as of this encounter Miscellaneous Notes * Cerner Conversion Note - Historical ProviderMD - 03/04/2019 7:22 AM 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[employer] MIR[employer]OR Pre Procedure Adult Entered On: 03/04/2019 7:23 EST Performed On: 03/04/2019 7:22 EST by Amee Valladares Rn Height and Weight, Clinical Dosing Height Source : Stated Height Entry Format : [place] Height, Feet : 5 ft(Converted to: 152 cm, 60 Inch) Height, Inches : 6 Inch(Converted to: 0 ft 6 Inch, 15.24 cm) Clinical Height : 167.64 cm Weight Source : Standing scale Weight Entry Format : [place] Clinical Dosing Weight : 72 kg Weight, Pounds : 158.4 lb Body Surface Area (BSA) : 1.81 m2 Body Mass Index : 25.6 kg/m2 (HI) [place] Body Weight : 63 kg Amee Valladares Rn - 03/04/2019 7:22 EST Health Histories Smoking Status : Never (less than 100 in lifetime; none in last 30 days) Smokeless Tobacco Status : Never Amee Valladares Rn - 03/04/2019 7:24 EST Social History (As Of: 03/04/2019 07:29:16 EST) Tobacco: Never (less than 100 in lifetime) Smoking Status. Never Smokeless Tobacco Status. (Last Updated: 03/04/2019 07:28:06 EST by Amee Valladares Rn) Alcohol: Alcohol Use History Yes. # Drinks/Day: 5. Date/Time of Last Drink: 01/30/19- vodka.. Use in Last 12 Months: Yes. Alcohol Use Frequency Daily. Alcohol Use Comment pt states he drinks 4-5 glasses of vodka per day . (Last Updated: 03/04/2019 07:28:34 EST by Amee Valladares Rn) Substance Abuse: Drug Use Hx: No. Use in Last 12 Months: No. (Last Updated: 03/04/2019 07:28:40 EST by Amee Valladares Rn) Nutrition/Health: Caffeine intake amount: 3 16oz diet mountain dew. (Last Updated: 03/04/2019 07:29:14 EST by Amee Valladares Rn) Infectious Disease History Infectious Disease History : None Fever/Chills Last 48 Hours : No Travel To Regions with Travel Advisories : No Travel Outside [place] Within Last 30 Days : No Contact With Traveler to Advisory Region : No Tuberculosis Symptoms : None Amee Valladares Rn - 03/04/2019 7:24 EST Anesthesia/Transfusion History Family History of Anesthesia Reaction : No prior transfusion(s) Transfusion History : Prior anesthesia without reaction Family History of Anesthesia Reaction : None Amee Valladares Rn - 03/04/2019 7:24 EST Functional Assessment Living Situation : Home Patient Lives With : Alone [place] Hx Falls Immediate/Within 3 Months : No Current Home Treatments : None Amee Valladares Rn - 03/04/2019 7:24 EST [place] Suicide Severity Rating Scale (C-SSRS) CSSRS Past Month Wish to be : No CSSRS Past Month Suicidal Thoughts : No CSSRS Lifetime Suicide Behavior : No Suicide Severity Rating Score : 0 Suicide Severity Rating : No Additional Care Required at this time Amee Valladares Rn - 03/04/2019 7:24 EST Psychosocial History Currently in Unsafe Situation : No Amee Valladares Rn - 03/04/2019 7:24 EST Advance Directive Patient has Advance Directive *Q : Yes, Advance Directive on file Advance Directive Type : Living will Copy Advance Directive Verified/on Chart : No Amee Valladares Rn - 03/04/2019 7:24 EST Teaching/Learning Assessment Barriers To Learning : None evident Individuals Taught : Patient Readiness to Learn : Cooperative Baseline Knowledge of Topic : Good Readiness to Learn : Explanation Learning Style Preferences Patient : Verbal explanation Amee Valladares Rn - 03/04/2019 7:24 EST General Info Legal Guardian : No Want Family/Rep/Phys Notified of Admit : Yes Name/Contact Info Fam/Rep Notified Adm : Jenae Feliciano Name/Contact Info Physician Notified Adm : na Emergency Contact #1 : Axel Douglas Emergency Contact #1 Phone Number : father Emergency Contact #1 Relationship : [phone] Emergency Contact #2 : na Emergency Contact #2 Phone Number : na Emergency Contact #2 Relationship : na Primary Language : Wallisian Communication Barrier : None Amee Valladares Rn - 03/04/2019 7:24 EST Sleep Apnea Risk Assmt BiPAP/CPAP Ordered for Home Use : No Hx of Obstructive Sleep Apnea Diagnosis : Yes Age over 50 Years Old : Yes Gender Male : Yes Amee Valladares Rn - 03/04/2019 7:24 EST Bhanu Scale Bhanu Sensory Perception : No impairment Bhanu Moisture : Rarely moist Bhanu Activity : Walks frequently Bhanu Mobility : Slightly limited Bhanu Nutrition : Adequate Bhanu Friction and Shear : No apparent problem Bhanu Score : 21 Amee Valladares Rn - 03/04/2019 7:24 EST Pain Assessment Pain Assessment : Initial assessment Pain Scale Goal : 6 Pain Scale Used : 0-10 Scale Amee Valladares Rn - 03/04/2019 7:24 EST Fall Risk Scales ABCs Fall Injury Risk Identification : None [place] Hx Falls Immediate/Within 3 Months : No [place] Secondary Diagnosis : No [place] Use of Ambulatory Aid : None [place] IV Therapy or IV Access : Yes [place] Gait/Transferring : Normal, bedrest, immobile [place] Mental Status : Oriented to own ability [place] Fall Risk Score : 20 [place] Fall Scale Risk Level : 0-24 Low Risk [place] Fall Interventions : Adequate lighting, Assistive devices within reach, Bed in low position, Call device within reach, Fall prevention handout/education per facility policy, Frequent orientation to call device, Hourly comfort/safety rounds, Non-slip footwear, Personal items within reach, Reinforced to call for assistance before getting out of bed, Room free of clutter/spills, Upper side-rails up, Wheels locked, Wires/Cords secured Amee Valladares Rn - 03/04/2019 7:22 EST Valuables and Belongings Valuables and Belongings : Clothing Clothing : Common streetwear Clothing Disposition : Bedside, With patient Amee Valladares Rn - 03/04/2019 7:22 EST Pain Scale Intensity : 0 Amee Valladares Rn - 03/04/2019 7:24 EST Image 4 - Images currently included in the form version of this document have not been included in the text rendition version of the form. documented in this encounter Plan of Treatment Not on file documented as of this encounter Visit Diagnoses Not on filedocumented in this encounter
--- OUTSIDE RECORDS SUMMARY | 2024-10-15 09:10 | XMS_ITS | Referral Summary ---
Author Organization [facility] Address [address] [place] [address] Care Team Providers Care Craft Center Director Name Role Phone Unavailable Primary Care Provider [...]
--- OUTSIDE RECORDS SUMMARY | 2024-10-15 09:10 | XMS_ITS | Encounter Summary ---
Author Organization [facility] Address [address] [place] [address] Care Team Providers Care Unclaimed Property Officer Name Role Phone Unavailable Primary Care Provider Unavailabl e Encounter Details Date Type Department Care Team (Late st Contact Info) Description 01/14/2019 Transcribed Document [facility] [place] Family Medicine [address] [place] [address] ProviderMary Ktae MD [address] [place] [address] Social History Tobacco Use Types Packs/Day Years Used Date Smoking Tobacco: Never Assessed Sex and Gender Information Value Date Recorded Sex Assigned at Not on file Legal Sex Male 5:22 PM CDT Gender Identity Not on file Sexual Orientation Not on file documented as of this encounter Miscellaneous Notes * Cerner Conversion Note - Mary Kate ProviderMD - 01/14/2019 11:53 AM CDT Post Visit Phone Call Entered On: 01/14/2019 11:54 EDT Performed On: 01/14/2019 11:53 EDT by Honey Lisa Rn Post Visit Phone Call Post Visit Phone Call History : First call, Other: Call back another time, I'm at the store Contact Relationship to Patient : Self Contact Name : Honey Boogie Rn - 01/14/2019 11:53 EDT documented in this encounter Plan of Treatment Not on file documented as of this encounter Visit Diagnoses Not on filedocumented in this encounter
--- OUTSIDE RECORDS SUMMARY | 2024-10-15 09:10 | XMS_ITS | Clinical Summary ---
Author Organization Healthcare Address [address] [place] [address] Care Team Providers Care Rn Support Services Name Role Phone Darin Monreal MD Primary Care Provider [phone] Eitan Mitchell MD Unavailable [phone] Vinh Henry MD Unavailable [phone] Allergies No known active allergies Medications Vivitrol 380 MG reconstituted suspension injection Inject 380 mg into the muscle every 28 (twenty-eight) days. Last dose 06/08/22 1 Active folic acid (Folvite) 1 MG tablet Take 1,000 mcg by mouth 1 (one) time each day. 1 Active traZODone (Desyrel) 100 MG tablet Take 100 mg by mouth every night. Active simvastatin (Zocor) 20 MG tablet Take 20 mg by mouth every night. Active venlafaxine (Effoxor) 37.5 MG tablet Take 37.5 mg by mouth 2 (two) times a day. Active lisinopril 20 MG tablet Take 20 mg by mouth 1 (one) time each day. 2 Active loratadine (Claritin) 10 MG tablet Take 10 mg by mouth 1 (one) time each day. Active carvedilol (Coreg) 12.5 MG tablet Take 12.5 mg by mouth 2 (two) times a day. Active levETIRAcetam (Keppra) 500 MG tablet Take 1 tablet (500 mg total) by mouth 2 (two) times a day. 60 tablet 11 3 Active esomeprazole (NexIUM) 40 MG packet 40 mg by Nasogastric route 2 (two) times a day. Active meloxicam (Mobic) 15 MG tablet Take 15 mg by mouth 1 (one) time each day. Active pantoprazole (Protonix) 40 MG EC tablet Take 1 tablet (40 mg total) by mouth 2 (two) times a day. Do not crush, chew, or split. 3 Active Active Problems Problem Noted Date Diagnosed Date Electrolyte abnormality 06/21/2022 Overview (06/21/2022): Hypokalemia Hypomagnesemia Monitor Replete per protocol Gastroesophageal reflux dise ase with esophagitis without hemorrhage 04/03/2022 Overview (06/20/2022): Continue PPI Primary insomnia 04/03/2022 Alcohol abuse 04/03/2022 Overview (06/20/2022): Previously reported Drinks 4-5 vodka/whiskey per day. CIWA protocol ordered without meds Anemia 02/13/2022 Overview (06/20/2022): Some component of chronic c/b surgery, phlebotomy, and IVF Improving Continue to monitor Esophageal dysphagia 02/11/2022 Feeding difficulty 01/05/2022 Overview (06/24/2022): Prior PEG placement due to esophageal stricture PEG removed in surgery, no Jtube UGI without leak CLD, boost due to increased distention Stricture and stenosis of esophagus 11/29/2020 Overview (06/24/2022): Hx of multiple dilations and esophageal stents 06/15/2022 s/p Robot-assisted laparoscopic and Robot-assisted thoracoscopic [place] Esophagectomy, Gastric emptying procedure with Botox injection of the pylorus, Lysis of intra-abdominal adhesions, EGD guided placement of Nasogastric tube, Diagnostic and therapeutic flexible Bronchoscopy UGI 06/21 without evidence of leak CXR/KUB on 06/24 with concern for dilated colon, pt distended CLD, boost OK for PO meds if liquid or crushed Essential hypertension 01/26/2019 Overview (06/24/2022): Decrease coreg to 6.25mg BID given hypotension overnight Mixed hyperlipidemia 01/26/2019 Overview (06/23/2022): Continue home statin equivalent Seizure disorder 01/26/2019 Overview (06/23/2022): PO keppra Persistent depressive disorder Overview (06/23/2022): Continue venlafaxine Holding home trazodone given hypotension and increased drowsiness this AM Resolved Problems Problem Noted Date Diagnosed Date Resolved Date Pancreatitis 06/12/2022 06/15/2022 Overview (06/20/2022): Hypotension, unspecified hypotension type 03/27/2022 04/03/2022 RUTHIE (acute kidney injury) 02/10/2022 Acute kidney injury 09/01/2021 09/06/19 Uremia 09/01/2021 09/05/2021 Hypercalcemia 09/01/2021 09/05/2021 Hyperphosphatemia 09/01/2021 09/05/2021 Hyponatremia 09/01/2021 09/05/2021 Hyperkalemia 09/01/2021 09/05/2021 Failure to thrive in adult 09/01/2021 0 09/05/2021 Vomiting without nausea 09/01/2021 05/1 10/2021 Alcohol dependence with withdrawal 01/25/2019 04/03/2022 Acid reflux 04/03/2022 History of transfusion 04/03 Immunizations Immunization Administration Dates Next Due Influenza, injectable, MDCK, preservative free, quadrivalent 01/30/2019 Family History Medical History Relation Name Comments No Known Problems Father No Known Problems Mother Anesthesia problems Neg Hx Malig Hyperthermia Neg Hx Relation Name Status Comments Father Mother Social History Tobacco Use Types Packs/Day Years Used Date Smoking Tobacco: Never Passive Smoke Exposure: Past Smokeless Tobacco: Never Tobacco Cessation:Counseling Given: No Alcohol Use Standard Drinks/Week Comments Yes 5 (1 standard drink = 0.6 oz pur e alcohol) 4 drinks per day PHQ-2 Answer Date Recorded Patient Health Questionnaire-2 Score 0 03/23/2022 CAGE ASSESSMENT Answer Date Recorded Cage unable to access Not on file 03/28/2022 Maximum number of drinks you had on a given occasion in the last month? 5 or more drinks 03/28/2022 How many alcoholic Beverages do you typically drink in a week? 15 or more per week 03/28/2022 Have you ever felt you shoul d CUT down on your drinking? 1 03/28/2022 Have you been ANNOYED by peo ple criticizing your drinking? 1 03/28/2022 Have you felt GUILTY about your drinking? 1 03/28/2022 Have you had a drink first t melissa in the morning (EYE-CITRIX ENGINEER) to steady your nerves or to get rid of a hangover? 0 03/28/2022 CAGE Questionnaire Score 3 022 PHQ-2A Answer Date Recorded Patient Health Questionnaire-2 Score 0 03/23/2022 Sex and Gender Information Value Date Recorded Sex Assigned at Male 03/28/2022 10:57 PM EST Legal Sex Male 12:34 PM EDT Gender Identity Male 03/28/2022 10:57 PM EST Sexual Orientation Straight 03/28/2022 10 :57 PM EST Last Filed Vital Signs Vital Sign Reading Time Taken Comments Blood Pressure 149/95 10/15/2022 11:45 AM EDT Pulse 92 10/15/2022 11:45 AM EDT Temperature 36.4 C (97.5 F) 10/15/2022 11:45 AM EDT Respiratory Rate 18 10/15/2022 11:45 AM EDT Oxygen Saturation 96% 10/15/2022 11:45 AM EDT Inhaled Oxygen Concentration - - Weight 60.4 kg (133 lb 2.5 oz) 10/15/2022 11:45 AM EDT Height 165.1 cm (5' 5 ) 07/02/2022 12:11 PM EDT Body Mass Index 22.16 07/02/2022 12:11 PM EDT Plan of Treatment Health Maintenance Due Date Last Done Comments [facility] Annual Wellness (AWV) 1965 [facility]-/Child/Adol SDOH Screenings 1965 Y- SDOH Screenings 1983 [facility]-Adult SDOH Screenings 1983 [facility]-DTaP,Tdap,and Td Vaccine s (1 - Tdap) 1984 [facility]-Hepatitis B Vaccines (1 of 3 - 19+ 3-dose series) 1984 CT Colonography 2010 Colonoscopy 2010 FIT-DNA 2010 FIT 2010 FOBT 2010 Sigmoidoscopy 2010 [facility]-Colorectal Cancer Screening 2010 [facility]-Pneumococcal Vaccine: 50 + Years (1 of 1 - PCV) 2015 [facility]-Zoster Vaccines (1 of 2) 2015 [facility]-Depression Screening 03/23/2023 022, 10/20/2020 [id number]-70 Vaccine ( season) 2023 04/05/2021, 08/26/2020, 07/26/2020 [facility]-Influenza Vaccine (Seaso n Ended) 2024 01/30/2019 [facility]-HIV Screening Completed 09/11/2020 [facility]-Hepatitis C Screening Completed 09/11/2020 HPV Vaccines Aged Out No longer eligi ble based on patient's age to complete this topic [facility]-HIB Vaccines Aged Out No longer e ligible based on patient's age to complete this topic [facility]-Hepatitis A Vaccines Aged Out No longer eligible based on patient's age to complete this topic [facility]-IPV Vaccines Aged Out No longer e ligible based on patient's age to complete this topic [facility]-Rotavirus Vaccines Aged Out No lo nger eligible based on patient's age to complete this topic Medical Devices Implanted Type Area Rn Hemodialysis Device Identifier Shelf Expiration Date Model / Serial / Lot Stent Esoph 10cm - [id number] Implanted:Qty : 1 on 05/17/2021 by Ivory Reno MD at [facility] Esophagus [id number] / / [id number] Duraclip 16mm - [id number] Implanted:Qty : 1 on 05/17/2021 by Ivory Reno MD at [facility] N/A: Esophagus [employer]-1388 55 08/02/2023 [id number] / / [id number] Duraclip 16mm - [id number] Implanted:Qty : 1 on 05/17/2021 by vIory Reno MD at [facility] N/A: Esophagus [employer]-1388 55 08/02/2023 [id number] / / [id number] Duraclip 16mm - [id number] Implanted:Qty : 1 on 05/17/2021 by Ivory Reno MD at [facility] N/A: Esophagus [employer]-1388 55 08/02/2023 [id number] / / [id number] Duraclip 16mm - [id number] Implanted:Qty : 1 on 05/17/2021 by Ivory Reno MD at [facility] N/A: Esophagus [employer]-1388 55 08/02/2023 [id number] / / [id number] Duraclip 16mm - [id number] Implanted:Qty : 3 on 09/04/2021 by Ivory Reno MD at [facility] Esophagus [employer]-1388 55 10/22/2023 [id number] / / [id number] Stent Esoph 10cm - [id number] Implanted:Qty : 1 on 09/04/2021 by Ivory Reno MD at [facility] [employer] Inc-[id number] 06/30/2023 [id number] / / [id number] Duraclip 11mm - [id number] Implanted:Qty : 2 on 01/08/2022 by Eitan Mitchell MD at [facility] Esophagus [employer]-1388 55 10/20/2023 [id number] / / [id number] Duraclip 16mm - [id number] Implanted:Qty : 1 on 02/13/2022 by Eitan Mitchell MD at [facility] N/A: Other (See Comments) [employer]-1388 55 08/02/2023 [id number] / / [id number] Stent Esoph 12fr 20mm - [id number] Implanted:Qty : 1 on 02/13/2022 by Eitan Mitchell MD at [facility] N/A: Esophagus [employer]-[id number] 12/29/2023 [id number] / [id number] / [id number] Stent Esoph 10fr 20mm - [id number] Implanted:Qty : 1 on 04/03/2022 by Eitan Mitchell MD at [facility] Esophagus [facility] Inc-[id number] 01/19/2024 [id number] / [id number] / [id number] Procedures Procedure Name Priority Date/Time Associated Diagnosis Comments ACUTE HEPATITIS PANEL Routine 09/11/2020 1:48 AM EDT HIV 1/2 ANTIBODY/ANTIGEN SCREEN WITH REFLEX TO HIV I/II DIFFERENTIATION Routine 09/11/2020 1:48 AM EDT from Last 3 Months or Most Recently Relevant to Health Maintenance Results * HIV 1 & 2 Antibody/Antigen Screen (09/11/2020 1:48 AM EDT) HIV 1 Result NONREACTIVE Screening for HIV 1 and 2 antibodies is NONREACTIVE. No confirmatory testing is required. SUNQUEST 09/11/2020 1:48 AM EDT 09/11/2020 1:53 AM EDT Caren Graves DO LAB BLOOD ORDERABLES Final Res ult SUNQUEST * Acute Hepatitis Panel (09/11/2020 1:48 AM EDT) Hepatitis B Surf Antigen NEGATIVE Reference Value: Negative SUNQUEST Hepatitis C Antibody NEGATIVE Reference Range: Negative SUNQUEST Hepatitis A Antibody IgM NEGATIVE Reference Value: Negative SUNQUEST External Hepatitis B Core IgM (HBCM) NEGATIVE Reference Value: Negative [facility]QUEST 09/11/2020 1:48 AM EDT 09/11/2020 1:53 AM EDT Caren Graves DO LAB BLOOD ORDERABLES Final Res ult SUNQUEST from Last 3 Months or Most Recently Relevant to Health Maintenance Insurance [facility] MEDICARE Advance Directives * Full Code (Latest Code Status on File) Date Activated Date Inactivated Comments 06/15/2022 4:11 PM 06/25/2022 1:40 PM Question Answer Comments Patient has decision-making capacity? Yes * Full Code Date Activated Date Inactivated Comments 02/10/2022 8:45 PM 02/13/2022 7:53 PM Question Answer Comments Patient has decision-making capacity? Yes * Full Code Date Activated Date Inactivated Comments 01/05/2022 8:33 PM 01/13/2022 12:52 PM Question Answer Comments Patient has decision-making capacity? Yes * Full Code Date Activated Date Inactivated Comments 09/01/2021 4:38 PM 09/05/2021 5:54 PM Question Answer Comments Patient has decision-making capacity? Yes Care Teams Rn Support Services Relationship Specialty Start Date End Date Darin Monreal MD [address] [place] [address] PCP - General 10/20/20 Eitan Mitchell MD [address] [place] [address] Consulting Physician Gastroenterology 04/03/22 Vinh Henry MD [address] [place] [address] Consulting Physician Cardiothoracic Surgery 04/03/22
--- OUTSIDE RECORDS SUMMARY | 2024-10-15 09:10 | XMS_ITS | Encounter Summary ---
Author Organization [facility] Address [address] [place] [address] Care Team Providers Care E/M Engineer Name Role Phone Unavailable Primary Care Provider Unavailabl e Encounter Details Date Type Department Care Team (Late st Contact Info) Description 03/04/2019 Transcribed Document [facility] [place] [address] [place], [place] [id number] ProviderMary Kate MD [address] [place] [address] Social History Tobacco Use Types Packs/Day Years Used Date Smoking Tobacco: Never Assessed Sex and Gender Information Value Date Recorded Sex Assigned at Not on file Legal Sex Male 5:22 PM CDT Gender Identity Not on file Sexual Orientation Not on file documented as of this encounter Miscellaneous Notes * Cerner Conversion Note - Mary Kate Cardenas MD - 03/04/2019 7:23 AM SEED TRUCKER Patient: MING MILLS Age: 53 years Sex: Male : 1965 Associated Diagnoses: None Author: STEFFANY HUBBARD MD-GAE Basic Information Source of history: Self. Referral source: JUAN MIGUEL MOLINA, USABILITY ARCHITECT-FAM. Chief Complaint History of Susana Ruiz tear, moderately to severe esophagitis. History of Present Illness Patient underwent an EGD on 01/06/[address] Steffany Hubbard as an in patient for symptoms of coffee ground emesis, melena and recent GI bleeding. Impression: Moderately severe esophagitis, Small hiatal hernia, Susana- Ruiz tear. Clips placed, Normal duodenum, No specimens collected. Patient was placed on Protonix 40mg BID, however, he has not taken it. He advises he takes Stomach pills once every few months . Denies N/V or further weight loss. He does take Mobic 15mg BID. Denies: ASA, smoking, gastric bypass, and previous PUD. Denies melena, hematemesis, BRBPR. Histories Past Medical History: Active GERD - Gastro-esophageal reflux disease (1276664197) Alcohol abuse (20253535) Depression (312335692) Hiatal hernia (502722048) Hyperlipidemia (38335729) HTN - Hypertension (0790379381) Procedure history: egd. Social History Social & Psychosocial Habits Alcohol 03/04/2019 Alcohol Use History, Social Habits Yes Number of Drinks per Day 5 Date/Time of Last Drink 01/30/19- vodka. Alcohol Use in Last Twelve Months Yes Alcohol Use Frequency Daily Alcohol Use Comment pt states he drinks 4-5 glasses of vodka per day Nutrition/Health 03/04/2019 Caffeine intake amount: 3 16oz diet [place] Substance Abuse 03/04/2019 Recreational Drug Use History No Recreational Drug Use Last 12 Months No Tobacco 03/04/2019 Smoking Status Never (less than 100 in l Smokeless Tobacco Status Never . Family History: Negative for colon cancer/Aponte Syndrome Health Status Allergies: Allergic Reactions (All) No Known Allergies No Known Medication Allergies, Allergies (2) Active Reaction No Known Allergies None Documented No Known Medication Allergies None Documented Current medications: (Selected) Inpatient Medications Ordered Normal Saline 1,000 mL: 100 mL/Hr, IntraVENous Prescriptions Prescribed Keppra 500 mg oral tablet: 1 Tab, Oral, BID, 60 Tab, 0 Refill(s) Multiple Vitamins oral capsule: 1 Cap, Oral, Daily, for 30 Day(s), 30 Cap, 0 Refill(s) Protonix 40 mg oral delayed release tablet: 1 Tab, Oral, BID, Take on an empty stomach 30 mintues before a meal, 60 Tab, 2 Refill(s) folic acid 1 mg oral tablet: 1 Tab, Oral, Daily, 30 Tab, 0 Refill(s) pantoprazole 40 mg oral granule, enteric coated: 1 Each, Oral, BID, for 30 Day(s), 60 Tab, 0 Refill(s) Documented Medications Documented carvedilol 6.25 mg oral tablet: 1 Tab, Oral, BID, 0 Refill(s) hydroCHLOROthiazide 25 mg oral tablet: 1 Tab, Oral, Daily, 0 Refill(s) lisinopril 10 mg oral tablet: 1 Tab, Oral, Daily, 0 Refill(s) meloxicam 15 mg oral tablet: 1 Tab, Oral, BID, 0 Refill(s) simvastatin 20 mg oral tablet: 1 Tab, Oral, At Bedtime, 0 Refill(s) venlafaxine 37.5 mg oral tablet: 1 Tab, Oral, BID, 60 Tab, 0 Refill(s), Medications (1) Active Scheduled: (0) Continuous: (1) NaCl 0.9% 1,000 mL 1,000 mL, IntraVENous, 100 mL/Hr PRN: (0) Problem list: All Problems Acid reflux / SNOMED CT 208681100 / Confirmed Alcohol abuse / SNOMED CT 48267980 / Confirmed Alcoholism / SNOMED CT 40515742 / Confirmed Depression / SNOMED CT 19595951 / Confirmed Depression / SNOMED CT 876342719 / Confirmed GERD - Gastro-esophageal reflux disease / SNOMED CT 5840634486 / Confirmed Hiatal hernia / SNOMED CT 424930817 / Confirmed Hiatal hernia / SNOMED CT 207360670 / Confirmed History of obstructive sleep apnea / IMO 55242014 / Confirmed HTN - Hypertension / SNOMED CT 9233090714 / Confirmed Hyperlipidemia / SNOMED CT 07075945 / Confirmed Hyperlipidemia / SNOMED CT 16223505 / Confirmed Hypertension / SNOMED CT 4375861014 / Confirmed Seizures / SNOMED CT 696585538 / Confirmed Canceled: No Chronic Problems / Cerner NKP, Active Problems (14) Acid reflux Alcohol abuse Alcoholism Depression Depression GERD - Gastro-esophageal reflux disease Hiatal hernia Hiatal hernia History of obstructive sleep apnea HTN - Hypertension Hyperlipidemia Hyperlipidemia Hypertension Seizures Review of Systems Constitutional: No fever, No chills, No weight gain, No weight loss. Eye: No recent visual problem, No blurring. Ear/Nose/Mouth/Throat: No dysphagia, No epistaxis, No hoarse voice, No sore throat. Respiratory: No shortness of breath, No cough, No hemoptysis. Cardiovascular: No chest pain, No palpitations, No claudication. Gastrointestinal: Negative except as documented in history of present illness. Genitourinary: No dysuria, No hematuria. Hematology/Lymphatics: No bruising tendency, No bleeding tendency. Endocrine: No excessive thirst, No cold intolerance, No heat intolerance. Musculoskeletal: No joint pain, No muscle pain, No gait disturbance, No joint redness. Integumentary: No rash, No pruritus. Neurologic: No confusion, No dizziness, No headache, No seizure. Psychiatric: No anxiety, No depression. the rest of the 10 system review is negative Physical Examination VS/Measurements Vitals Signs (last 24 hrs) Last Charted Minimum Maximum Temp 98.6 (MAR 04:00) 98.6 (MAR 04:00) 98.6 (MAR 04:) Mon HR 70 (MAR 04:) 70 (MAR 04:) 70 (MAR 04:) Resp Rate 16 (MAR 04:) 16 (MAR 04:) 16 (MAR 04:) SBP H 178 (MAR 04:) H 178 (MAR 04:) H 178 (MAR 04:) DBP H 103 (MAR 04:) H 103 (MAR 04:) H 103 (MAR 04:) SpO2 99 (MAR 04:) 99 (MAR 04:) 99 (MAR 04:) General: No acute distress. Appearance: Well nourished. Eye: Pupils are equal, round and reactive to light, Extraocular movements are intact, Normal conjunctiva. Sclera: Both eyes, Within normal limits. HENT: Normocephalic, Normal hearing, Oral mucosa is moist. Nose: Both nostrils, Within normal limits, Patent. Mouth: pink. Neck: Supple, Non-tender, No carotid bruit, No jugular venous distention. Respiratory: Lungs are clear to auscultation, Respirations are non-labored, Breath sounds are equal. Pattern: Regular. Cardiovascular: Normal rate, Regular rhythm, No murmur, No gallop, No edema. Arterial pulses: Bilateral, Dorsalis pedis, Within normal limits. Gastrointestinal: Soft, Non-tender, Non-distended, Normal bowel sounds, No organomegaly. Abdomen: Liver ( Within normal limits ). Lymphatics: Lymphatic exam: Bilateral, Cervical chain, Inguinal. Musculoskeletal: Normal range of motion, Normal strength, No tenderness, No deformity, Normal gait. Integumentary: Warm, Dry, [place], No rash. Integumentary exam: Face, Chest, Arm, Abdomen, Leg. Neurologic: Alert, Oriented, No focal deficits. Orientation: To person, To place, To time. Psychiatric: Cooperative, Appropriate mood & affect, Normal judgment. Review / Management Results review: No qualifying data available. Impression and Plan History of Susana Ruiz tear, GERD. Differential diagnosis includes PUD, esophagitis or gastritis . Proceed with EGD for further evaluation. Risks including that of bleeding and perforation have been discussed with the patient who verbalizes understanding and agrees to proceed. Further recommendations will be based on the above findings. Scribed by Kody Ruiz PA-C for Dr. Steffany Hubbard. Electronically signed by Jaron Larsen [employer] Wafers Saw Operator Cerner at 08/08/2022 11:26 PM CDT documented in this encounter Plan of Treatment Not on file documented as of this encounter Visit Diagnoses Not on filedocumented in this encounter
--- OUTSIDE RECORDS SUMMARY | 2024-10-15 09:10 | XMS_ITS | Encounter Summary ---
Author Organization Healthcare Address [address] [place] [address] Care Team Providers Care Cook Helper Fruit Name Role Phone Dairn Monreal MD Primary Care Provider [phone] Eitan Mitchell MD Unavailable [phone] Vinh Henry MD Unavailable [phone] Melyssa Kwan Unavailable [phone] Encounter Details Date Type Department Care Team (Late st Contact Info) Description 03/26/2024 Lab Requisition [facility] [address] [place] [address] Esther Warren MD [address] [place], [place] [id number] Encounter for general adult medical examination without abnormal findings Social History Tobacco Use Types Packs/Day Years Used Date Smoking Tobacco: Never Passive Smoke Exposure: Past Smokeless Tobacco: Never Alcohol Use Standard Drinks/Week Comments Yes 5 [...] drink first t melissa in the morning (EYE-TANK OFFICER) to steady your nerves or to get [...] Orientation Straight 03/28/2022 10 :57 PM EST documented as of this encounter Plan of Treatment Not on file documented as of this encounter Procedures Procedure Name Priority Date/Time Associated Diagnosis Comments ETHYLENE GLYCOL, PLASMA Routine 03/26/2024 9:15 PM EST Encounter for general adult medical examination without abnormal findings ISOPROPANOL PLASMA Routine 03/26/2024 9: 15 PM EST Encounter for general adult medical examination without abnormal findings documented in this encounter Results * (ABNORMAL) Isopropanol, Plasma (03/26/2024 9:15 PM EST) Isopropanol Plasma 159(H) <10 mg/dL 03/27/2024 3:[address] [facility] Blood Venous blood specimen / Unknown 03/26/2024 9:15 PM EST 03/26/2024 11:[address] [facility] - 03/27/2024 3:00 AM EST Test performed by Gas Chromatography at the [facility]. This test was developed and its performance characteristics determined by [facility]. It has not been cleared or approved by the FDA.The laboratory is regulated under CLIA as qualified to perform high-complexity testing. This test is used for clinical purposes only. us Esther Wraren MD LAB BLOOD ORDERABLES Final Resul t [facility] [address] [place] [address] * Ethylene Glycol Plasma (03/26/2024 9:15 PM EST) Ethylene Glycol, Plasma <5 <5 mg/dL 03/26/2024 11:[address] [facility] Blood Venous blood specimen / Unknown 03/26/2024 9:15 PM EST 03/26/2024 11:[address] [facility] - 03/26/2024 11:44 PM EST This test was developed and its performance characteristics determined by [facility]. It has not been cleared or approved by the FDA. The laboratory is regulated under CLIA as qualified to perform high-complexity testing. This test is used for clinical purposes. Enzymatic Assay: Performed on [employer]. us Esther Warren MD LAB BLOOD ORDERABLES Final Resul t [facility] [address] [place] [address] documented in this encounter Visit Diagnoses Diagnosis Encounter for general adult medical examination without abnormal findings documented in this encounter Additional Health Concerns Assessment Noted Time PHQ-9 Depression Total Score: 0 10/21/19 21 1:00 PM EDT A fall risk assessment has been complete d for the patient 10/15/2022 11:48 AM EDT documented as of this encounter Care Teams Cook Helper Fruit Relationship Specialty Start Date End Date Darin Monreal MD [address] [place] [address] PCP - General 10/20/20 Eitan Mitchell MD [address] [place] [address] Consulting Physician Gastroenterology 04/03/22 Vinh Henry MD [address] [place] [address] Consulting Physician Cardiothoracic Surgery 04/03/22 Melyssa Kwan MBBS [address] [place] [address] Resident Neurology 04/24/22 03/26/24 documented as of this encounter
--- OUTSIDE RECORDS SUMMARY | 2024-10-15 09:10 | XMS_ITS | Encounter Summary ---
Author Organization [facility] Address [address] [place] [address] Care Team Providers Care Crystal Flat Grinder Name Role Phone Unavailable Primary Care Provider Unavailabl e Encounter Details Date Type Department Care Team (Late st Contact Info) Description 03/04/2019 Transcribed Document [facility] [place] [address] [place] [address] ProviderMary Kate MD [address], [place] [address] Social History Tobacco Use Types Packs/Day Years Used Date Smoking Tobacco: Never Assessed Sex and Gender Information Value Date Recorded Sex Assigned at Not on file Legal Sex Male 5:22 PM CDT Gender Identity Not on file Sexual Orientation Not on file documented as of this encounter Miscellaneous Notes * Cerner Conversion Note - Historical ProviderMD - 03/04/2019 8:00 AM BOOT REPAIRER [facility] Summary Primary Physician: RAZIA LANTIGUA MD-GAE Finalized Date/Time: 03/04/19 07:32:32 Pt. Name: PROSPER MILLS Viet Vasquez/Sex: 1965 Male Med Rec #: [id number] Physician: RAZIA LANTIGUA MD-GAE Financial #: [id number] Pt. Type: O Room/Bed: EEN/1 Admit/Disch: 03/04/19 07:03:00 - Institution: [facility] Pre[facility] Case Times Entry 1 In Preop 03/04/19 07:16:00 Ready for Holding n/a Room Patient Ready for 03/04/19 07:32:00 Surgery Patient Out of Preop 03/04/19 07:32:00 Patient Out of 03/04/19 07:32:00 Holding Room [facility] Pre[facility] Case Times Audit 03/04/19 07:32:30 Laminating Machine Offbearer: [id number] Modifier: [id number] <+> 1 Patient Out of Preop <+> 1 Patient Ready for Surgery <+> 1 Patient Out of Holding Room Finalized By: Amee Valladares Rn Document Signatures Signed By: Amee Valladares Rn 03/04/19 07:32 Electronically signed by Chava [facility] Conversion Paving Crew Foreman Cerner at 08/08/2022 11:25 PM CDT documented in this encounter Plan of Treatment Not on file documented as of this encounter Visit Diagnoses Not on filedocumented in this encounter
--- OUTSIDE RECORDS SUMMARY | 2024-10-15 09:11 | XMS_ITS | Encounter Summary ---
Author Organization [employer] [facility] Address [address] [place] [address] Care Team Providers Care Geophysical Laboratory Chief Name Role Phone Unavailable Primary Care Provider Unavailabl e Encounter Details Date Type Department Care Team (Late st Contact Info) Description 01/05/2019 Transcribed Document [facility] Radiology [address] [place] [address] Akshat Magana MD [address] [place], [place] [id number] Social History Tobacco Use Types Packs/Day Years Used Date Smoking Tobacco: Never Assessed Sex and Gender Information Value Date Recorded Sex Assigned at Not on file Legal Sex Male 5:22 PM CDT Gender Identity Not on file Sexual Orientation Not on file documented as of this encounter Miscellaneous Notes * Cerner Conversion Note - Akshat Magana MD - 01/05/2019 8:14 AM EDT Patient: MING MILLS Age: 53 years Sex: Male : 1965 Associated Diagnoses: None Author: AKSHAT MAGANA MD Subjective Chief complaint. Saturday, January 05, 2019. Patient required multiple doses of Ativan overnight and she is oriented to name, date of , age, 2019, [facility] however he's definitely agitated and confused. An obvious alcohol withdrawal. No nausea vomiting. No chest pain palpitations. No shortness breath coughing wheezing. No additional episodes of coffee-ground emesis awaiting evaluation by GI later this morning for possible EGD. Review of Systems Constitutional: Weakness, Decreased activity, No fever, No chills. Respiratory: No shortness of breath, No cough. Cardiovascular: No chest pain, No palpitations. Gastrointestinal: No nausea, No vomiting, No diarrhea, No constipation. Genitourinary: No dysuria. Neurologic: Alert and oriented X4, Confusion. Psychiatric: Anxiety, alcohol abuse with alcohol withdrawal., No depression. Health Status Allergies: Allergic Reactions (Selected) No Known Allergies No Known Medication Allergies, Allergies (2) Active Reaction No Known Allergies None Documented No Known Medication Allergies None Documented Problem list: Medical Alcoholism / SNOMED CT 73089076 / Confirmed History of obstructive sleep apnea / IMO 86042621 / Confirmed, Active Problems (7) Acid reflux Alcoholism Depression Hiatal hernia History of obstructive sleep apnea Hyperlipidemia Hypertension Current medications: (Selected) Inpatient Medications Ordered Ativan: 1 mg, IV Push, Q30Min, PRN: Other (See Comment) Ativan: 1 mg, Oral, Q30Min, PRN: Other (See Comment) Ativan: 2 mg, IV Push, Q30Min, PRN: Other (See Comment) Ativan: 2 mg, Oral, Q30Min, PRN: Other (See Comment) Ativan: 3 mg, IV Push, Q30Min, PRN: Other (See Comment) Ativan: 3 mg, Oral, Q30Min, PRN: Other (See Comment) Ativan: 4 mg, IV Push, Q30Min, PRN: Other (See Comment) Ativan: 4 mg, Oral, Q30Min, PRN: Other (See Comment) Catapres: 0.1 mg, Oral, Q6H, PRN: Other (See Comment) Colace: 100 mg, Oral, BID Dulcolax Laxative: 5 mg, Oral, Daily, PRN: Constipation DuoNeb 0.5 mg-2.5 mg/3 mL inhalation solution: 3 mL, Nebulized Inhalation, RT_Q6H Keppra: 1,000 mg, 100 mL, 200 mL/Hr, IV Piggyback, 1-Time Keppra: 500 mg, 100 mL, 400 mL/Hr, IV Piggyback, Q12H Lopressor: 25 mg, Oral, Q6H, PRN: Hypertension MiraLax: 17 Gram, Oral, Daily, PRN: Constipation Phenergan: 12.5 mg, IV Push, Q6H, PRN: Nausea/Vomiting Reglan: 10 mg, IV Push, Q6HInt Restoril: 15 mg, Oral, At Bedtime, PRN: Sleep Sodium Chloride 0.9% intravenous solution 3,000 mL: 175 mL/Hr, IntraVENous Tylenol: 650 mg, Oral, Q4H, PRN: Pain (Mild 1-3) Zofran: 4 mg, IV Push, Q4H, PRN: Nausea/Vomiting Zofran: 4 mg, Oral, Q4H, PRN: Nausea/Vomiting folic acid: 1 mg, Oral, Daily haloperidol: 2 mg, IntraMuscular, Q4H, PRN: Agitation labetalol: 20 mg, IV Push, Q1H, PRN: Other (See Comment) magnesium sulfate injection 2 Gram + Thiamine Injection 100 mg + multivitamin injection 10 mL + Sod...: 2 Gram, 4 mL, 100 mL/Hr, IntraVENous, [id number] pantoprazole 40 mg + Sodium Chloride 0.9% intravenous solution 100 mL: 20 mL/Hr, IntraVENous Prescriptions Prescribed Multiple Vitamins oral capsule: 1 Cap, Oral, Daily, for 30 Day(s), 30 Cap, 0 Refill(s) folic acid 1 mg oral tablet: 1 Tab, Oral, Daily, for 30 Day(s), 30 Tab, 0 Refill(s) Documented Medications Documented carvedilol 6.25 mg oral tablet: 1 Tab, Oral, BID, 0 Refill(s) esomeprazole: 20 mg, Oral, Daily, 0 Refill(s) hydroCHLOROthiazide 25 mg oral tablet: 1 Tab, Oral, Daily, 0 Refill(s) lisinopril 10 mg oral tablet: 1 Tab, Oral, Daily, 0 Refill(s) loratadine 10 mg oral tablet: 1 Tab, Oral, Daily, 0 Refill(s) meloxicam 7.5 mg oral tablet: 1 Tab, Oral, Daily, 0 Refill(s) simvastatin 20 mg oral tablet: 1 Tab, Oral, At Bedtime, 0 Refill(s) traZODone 100 mg oral tablet: 1 Tab, Oral, TID, PRN: Pain, 0 Refill(s) venlafaxine 37.5 mg oral tablet: 1 Tab, Oral, BID, 60 Tab, 0 Refill(s), Home Medications (11) Active carvedilol 6.25 mg oral tablet 6.25 mg = 1 Tab, Oral, BID esomeprazole 20 mg, Oral, Daily folic acid 1 mg oral tablet 1 mg = 1 Tab, Oral, Daily hydroCHLOROthiazide 25 mg oral tablet 25 mg = 1 Tab, Oral, Daily lisinopril 10 mg oral tablet 10 mg = 1 Tab, Oral, Daily loratadine 10 mg oral tablet 10 mg = 1 Tab, Oral, Daily meloxicam 7.5 mg oral tablet 7.5 mg = 1 Tab, Oral, Daily Multiple Vitamins oral capsule 1 Cap, Oral, Daily simvastatin 20 mg oral tablet 20 mg = 1 Tab, Oral, At Bedtime traZODone 100 mg oral tablet 100 mg = 1 Tab, PRN, Oral, TID venlafaxine 37.5 mg oral tablet 37.5 mg = 1 Tab, Oral, BID , Medications (28) Active Scheduled: (7) albuterol-ipratropium inh 3 mL 3 mL, Nebulized Inhalation, RT_Q6H docusate sodium 100 mg cap 100 mg 1 Cap, Oral, BID folic acid 1 mg tab 1 mg 1 Tab, Oral, Daily levETIRAcetam 1,000 mg 100 mL, IV Piggyback, 1-Time levETIRAcetam 500 mg 100 mL, IV Piggyback, Q12H magnesium sulfate 50% 2 Gram + thiamine 100 mg + multivitamins *ADULT* 10 mL + NaCl 0.9% 1,000 mL 2 Gram 4 mL, IntraVENous, [id number] metoclopramide 10 mg/2 mL inj 10 mg 2 mL, IV Push, Q6HInt Continuous: (2) NaCl 0.9% 3,000 mL 3,000 mL, IntraVENous, 175 mL/Hr pantoprazole 40 mg + NaCl 0.9% 100 mL 100 mL, IntraVENous, 20 mL/Hr PRN: (19) acetaminophen 325 mg tab 650 mg 2 Tab, Oral, Q4H bisacodyl EC 5 mg tab 5 mg 1 Tab, Oral, Daily cloNIDine 0.1 mg tab 0.1 mg 1 Tab, Oral, Q6H haloperidol 5 mg/1 mL inj 2 mg 0.4 mL, IntraMuscular, Q4H labetalol 100 mg/20 mL inj 20 mg 4 mL, IV Push, Q1H LORazepam 1 mg tab 1 mg 1 Tab, Oral, Q30Min LORazepam 1 mg tab 2 mg 2 Tab, Oral, Q30Min LORazepam 1 mg tab 3 mg 3 Tab, Oral, Q30Min LORazepam 1 mg tab 4 mg 4 Tab, Oral, Q30Min LORazepam 2 mg/mL inj 1 mg 0.5 mL, IV Push, Q30Min LORazepam 2 mg/mL inj 2 mg 1 mL, IV Push, Q30Min LORazepam 2 mg/mL inj 3 mg 1.5 mL, IV Push, Q30Min LORazepam 2 mg/mL inj 4 mg 2 mL, IV Push, Q30Min metoprolol tartrate 25 mg tab 25 mg 1 Tab, Oral, Q6H ondansetron 4 mg tab 4 mg 1 Tab, Oral, Q4H ondansetron 4 mg/2 mL inj 4 mg 2 mL, IV Push, Q4H polyethylene glycol 3350 pwd 17 g pkt 17 Gram 1 Packet, Oral, Daily promethazine 25 mg/1 mL inj 12.5 mg 0.5 mL, IV Push, Q6H temazepam 15 mg cap 15 mg 1 Cap, Oral, At Bedtime Objective VS/Measurements Vitals Signs (last 24 hrs) Last Charted Minimum Maximum Temp 98.4 (JAN 05 04:00) 98.4 (JAN 05 04:00) 98.1 (JAN 04 20:00) Mon HR 118 (JAN 05 08:23) 118 (JAN 05 08:23) 159 (JAN 04 21:30) Resp Rate 14 (JAN 05 08:23) L 13 (JAN 05 06:00) H 31 (JAN 05 00:30) SBP H 143 (JAN 05 06:30) 94 (JAN 04 22:00) H 171 (JAN 05 03:00) DBP 89 (JAN 05 06:30) 64 (JAN 04 22:00) H 101 (JAN 04:15) MAP 110 (JAN 05 06:30) 73 (JAN 04 22:00) 127 (JAN 05 03:00) SpO2 100.00 (JAN 05 08:23) L 68.00 (JAN 04 20:15) 100.00 (JAN 04 17:24) Physical Examination VS/Measurements Vitals Signs (last 24 hrs) Last Charted Minimum Maximum Temp 98.4 (JAN 05 04:00) 98.4 (SEP 16 04:00) 98.1 (DEC 15 20:00) Mon HR 118 (JAN 05 08:23) 118 (JAN 05 08:23) 159 (DEC 15 21:30) Resp Rate 14 (JAN 05 08:23) L 13 (JAN 05 06:00) H 31 (JAN 05 00:30) SBP H 143 (DEC 16 06:30) 94 (DEC 15 22:00) H 171 (DEC 16 03:00) DBP 89 (JAN 05 06:30) 64 (DEC 15 22:00) H 101 (DEC 15 17:15) MAP 110 (JAN 05 06:30) 73 (DEC 15 22:00) 127 (DEC 16 03:00) SpO2 100.00 (JAN 05 08:23) L 68.00 (JAN 04 20:15) 100.00 (JAN 04 17:24) , Measurements from flowsheet : Measurements 01/04/2019 16:44 EDT Height Source Chart Height Entry Format [place] Height/Length, KAZAKH (ft) 5 ft Height/Length KAZAKH 7 Inch CLINICALHEIGHT 170.18 cm [place] Body Weight 65 kg Weight Source Bed scale Weight Entry Format [place] Weight [place] lb 164.8 lb CLINICALWEIGHT 74.91 kg Body Surface Area (BSA) 1.86 m2 Body Mass Index 25.9 kg/m2 HI General: Alert and oriented, Moderate distress, Although alert and oriented to time and place E is confused and agitated and alcohol withdrawal.. Eye: Pupils are equal, round and reactive to light, Extraocular movements are intact. HENT: Normocephalic, Normal hearing. Neck: Supple, No jugular venous distention. Respiratory: Lungs are clear to auscultation, Breath sounds are equal. Cardiovascular: Normal rate, Regular rhythm. Gastrointestinal: Soft, Non-tender, Normal bowel sounds. Genitourinary: No costovertebral angle tenderness. Lymphatics: No lymphadenopathy neck, axilla, groin. Musculoskeletal: Normal range of motion, Normal strength. Integumentary: Dry, Intact. Neurologic: Alert, Oriented. Psychiatric: Cooperative, Appropriate mood & affect. Review / Management Results review: Labs (Last four charted values) WBC H 10.4 (DEC 15) HB L 11.5 (DEC 16) L 12.7 (DEC 15) HCT L 32.9 (DEC 16) L 35.5 (DEC 15) Plt L 125 (DEC 15) Na L 133 (DEC 16) L 129 (DEC 15) K 3.7 (SEP 16) 4.2 (SEP 15) Cl L 92 (DEC 16) L 84 (DEC 15) CO2 29 (DEC 16) 27 (DEC 15) BUN H 55 (DEC 16) H 61 (DEC 15) Cr H 1.92 (DEC 16) H 2.53 (DEC 15) Glu R H 129 (DEC 16) H 167 (DEC 15) Ca L 7.6 (DEC 16) L 8.0 (DEC 15) Lactic 1.6 (DEC 16) PT 10.0 (DEC 16) INR 1.0 (DEC 16) PTT L 24.4 (DEC 15) AST H 45 (DEC 16) H 46 (DEC 15) ALT 51 (JAN 05) 62 (JAN 04) ALK P 50 (DEC 16) 62 (JAN 04) T Bili 0.5 (JAN 05) 0.6 (DEC 15) PTN 7.2 (DEC 16) 7.7 (DEC 15) ALB 3.4 (DEC 16) 3.7 (DEC 15) Troponin H 0.048 (DEC 16) H 0.076 (DEC 15) . Impression and Plan alcohol withdrawal and tremulous very anxious. DT -heart Rate of 150 -Given Valium 5 mg at outside facility as well as a rally bag there -Resume rally bag daily -alcohol protocol started -Ativan 15 mg given from the night of January 04 through the morning of the Acute upper GI bleed coffee ground emesis -hemoGlobin 15.5 to 11 -deHydrated with acute renal failure -Serial hemoglobin checks, transfuse as needed -V Protonix started at outside facility. Continue Protonix drip Seizure disorder. Possibly related to heavy alcohol abuse -Admitted December 2017 with similar episode -Start Ativan now and as needed -EEG ordered -Consult neurology Acute renal failure HTN -Secondary to hypovolemia, nausea vomiting -creat 0.25 December 2017 increased to 3.6 to 1.9 -IV fluid resuscitation Hyponatremia hypovolemic -Alcohol abuse -120 to 133 -Rally bag followed by normal saline Hypertension. Coreg 6 mg twice a day -Lisinopril 20 mg daily hold for acute renal failure Dyslipidemia. Hold simvastatin and is nothing by mouth with renal failure. Anxiety. Venlafaxine filled on December 21 Full code. Patient states his next of kin is his father January 05. 35 minutes spent on critical care patient alcohol withdrawal. He did get 15 mg total of Ativan overnight and this morning. Fortunately his creatinine is improving with IV fluid resuscitation going from 3.6 down to 1.9. His hemoglobin is also dropped from 15 down to 11 a suspect much of the cyst fluid but we are awaiting GI consultation and probable EGD later today. Serial hemoglobin checks. We'll transfuse as needed pending on the speed of the drop in hemoglobin as well as a total value. [employer] dictation system used. Computer program makes numerous spelling grammar mistakes. If you have any questions or concerns do not hesitate call Dr. Akshat Llamas at cell phone number [phone]. documented in this encounter Plan of Treatment Not on file documented as of this encounter Visit Diagnoses Not on filedocumented in this encounter
--- OUTSIDE RECORDS SUMMARY | 2024-10-15 09:11 | XMS_ITS | Encounter Summary ---
Author Organization [facility] Address [address] [place] [address] Care Team Providers Care Manager Background Name Role Phone Unavailable Primary Care Provider Unavailabl e Encounter Details Date Type Department Care Team (Late st Contact Info) Description 01/08/2019 Transcribed Document [facility] [place] [address] [place] [address] ProviderMary Kate MD [address] [place] [address] Social History Tobacco Use Types Packs/Day Years Used Date Smoking Tobacco: Never Assessed Sex and Gender Information Value Date Recorded Sex Assigned at Not on file Legal Sex Male 5:22 PM CDT Gender Identity Not on file Sexual Orientation Not on file documented as of this encounter Miscellaneous Notes * Cerner Conversion Note - Mary Kate ProviderMD - 01/08/2019 3:19 PM CDT Stroke/Warfarin Instructions Entered On: 01/08/2019 15:19 EDT Performed On: 01/08/2019 15:19 EDT by Sharmila Flaherty RN Stroke/Warfarin Instructions Stroke/TIA Discharge Ins : N/A Warfarin Discharge Ins : N/A Sharmila Flaherty RN - 01/08/2019 15:19 EDT documented in this encounter Plan of Treatment Not on file documented as of this encounter Visit Diagnoses Not on filedocumented in this encounter
--- OUTSIDE RECORDS SUMMARY | 2024-10-15 09:11 | XMS_ITS | Encounter Summary ---
Author Organization [facility] Address [address] [place] [address] Care Team Providers Care Orthotic Aide Name Role Phone Unavailable Primary Care Provider Unavailabl e Encounter Details Date Type Department Care Team (Late st Contact Info) Description 01/06/2019 Transcribed Document [facility] [place] Medicine [address] [place] [address] ProviderMary Kate MD [address] [place] [address] Social History Tobacco Use Types Packs/Day Years Used Date Smoking Tobacco: Never Assessed Sex and Gender Information Value Date Recorded Sex Assigned at Not on file Legal Sex Male 5:22 PM CDT Gender Identity Not on file Sexual Orientation Not on file documented as of this encounter Miscellaneous Notes * Cerner Conversion Note - Historical ProviderMD - 01/06/2019 4:25 AM CDT Sepsis Screening Tool Entered On: 01/06/2019 6:47 EDT Performed On: 01/06/2019 4:25 EDT by Bimal Finn Rn-Resource Provider Notification Provider Notified of Concerns/Results : Critical value result, SIRS/Sepsis Alert Critical Result Read Back and Verified : No Provider Response : No new orders Bimal Finn Rn-Resource - 01/06/2019 6:47 EDT documented in this encounter Plan of Treatment Not on file documented as of this encounter Visit Diagnoses Not on filedocumented in this encounter
--- OUTSIDE RECORDS SUMMARY | 2024-10-15 09:11 | XMS_ITS | Encounter Summary ---
Author Organization [facility] Address [address] [place] [address] Care Team Providers Care Division Superintendent Name Role Phone Unavailable Primary Care Provider Unavailabl e Encounter Details Date Type Department Care Team (Late st Contact Info) Description 01/05/2019 Transcribed Document [facility] [place] Medicine [address] [place] [address] ProviderMary Kate MD [address] [place] [address] Social History Tobacco Use Types Packs/Day Years Used Date Smoking Tobacco: Never Assessed Sex and Gender Information Value Date Recorded Sex Assigned at Not on file Legal Sex Male 5:22 PM CDT Gender Identity Not on file Sexual Orientation Not on file documented as of this encounter Miscellaneous Notes * Cerner Conversion Note - Historical ProviderMD - 01/05/2019 5:00 PM CDT Chart Check - Review Order Profile Entered On: 01/05/2019 16:34 EDT Performed On: 01/05/2019 17:00 EDT by Addie Dozier RN Chart Check Powerplans Initiated/Discontinued as Appropriate : Yes All Active Orders Reviewed : Yes Addie Dozier RN - 01/05/2019 16:34 EDT documented in this encounter Plan of Treatment Not on file documented as of this encounter Visit Diagnoses Not on filedocumented in this encounter
--- OUTSIDE RECORDS SUMMARY | 2024-10-15 09:11 | XMS_ITS | Encounter Summary ---
Author Organization [facility] Address [address] [place] [address] Care Team Providers Care Patternator Name Role Phone Unavailable Primary Care Provider Unavailabl e Encounter Details Date Type Department Care Team (Late st Contact Info) Description 01/04/2019 Transcribed Document [facility] [place] Medicine [address] [place] [address] ProviderMary Kate MD [address] [place] [address] Social History Tobacco Use Types Packs/Day Years Used Date Smoking Tobacco: Never Assessed Sex and Gender Information Value Date Recorded Sex Assigned at Not on file Legal Sex Male 5:22 PM CDT Gender Identity Not on file Sexual Orientation Not on file documented as of this encounter Miscellaneous Notes * Cerner Conversion Note - Historical ProviderMD - 01/04/2019 6:22 PM CDT Provider Notification Entered On: 01/04/2019 18:23 EDT Performed On: 01/04/2019 18:22 EDT by ASHLEIGH WADE, Rn Provider Notification Provider Response : No new orders ASHLEIGH WADE, Moisés - 01/04/2019 18:23 EDT Electronically signed by Jaron Larsen Conversion [employer] Officer Cerner at 08/08/2022 11:11 PM CDT documented in this encounter Plan of Treatment Not on file documented as of this encounter Visit Diagnoses Not on filedocumented in this encounter
--- OUTSIDE RECORDS SUMMARY | 2024-10-15 09:11 | XMS_ITS | Encounter Summary ---
Author Organization [facility] Address [address] [place] [address] Care Team Providers Care As400 Administrator Name Role Phone Unavailable Primary Care Provider Unavailabl e Encounter Details Date Type Department Care Team (Late st Contact Info) Description 01/04/2019 Transcribed Document [facility] [place] [address] [place] [address] ProviderMary Kate MD [address] [place] [address] Social History Tobacco Use Types Packs/Day Years Used Date Smoking Tobacco: Never Assessed Sex and Gender Information Value Date Recorded Sex Assigned at Not on file Legal Sex Male 5:22 PM CDT Gender Identity Not on file Sexual Orientation Not on file documented as of this encounter Miscellaneous Notes * Cerner Conversion Note - Historical ProviderMD - 01/04/2019 5:00 PM CDT Chart Check - Review Order Profile Entered On: 01/04/2019 18:21 EDT Performed On: 01/04/2019 17:00 EDT by ASHLEIGH WADE, Rn Chart Check Powerplans Initiated/Discontinued as Appropriate : Yes ASHLEIGH WADE, Moisés - 01/04/2019 18:21 EDT documented in this encounter Plan of Treatment Not on file documented as of this encounter Visit Diagnoses Not on filedocumented in this encounter
--- OUTSIDE RECORDS SUMMARY | 2024-10-15 09:11 | XMS_ITS | Encounter Summary ---
Author Organization [facility] [facility] Address [address] [place] [address] Care Team Providers Care Customer Care Specialist Name Role Phone Unavailable Primary Care Provider Unavailabl e Encounter Details Date Type Department Care Team (Late st Contact Info) Description 01/06/[address] [facility] [place] Medicine [address] [place] [address] ProviderMary Kate MD [address] [place] [address] Social History Tobacco Use Types Packs/Day Years Used Date Smoking Tobacco: Never Assessed Sex and Gender Information Value Date Recorded Sex Assigned at Not on file Legal Sex Male 5:22 PM CDT Gender Identity Not on file Sexual Orientation Not on file documented as of this encounter Miscellaneous Notes * Cerner Conversion Note - Mary Kate ProviderMD - 01/06/2019 1:51 PM CDT Initial Discharge Planning Entered On: 01/06/2019 13:52 EDT Performed On: 01/06/2019 13:51 EDT by TABATHA CONNELL, RN-Material Assistant Initial Assessment I Previously Documented Living Environment : No qualifying data available. Living Situation : Home Patient Lives With : Alone Is the Patient a Caregiver at Home? : No Emergency Contact #1 : . Emergency Contact #1 Phone Number : . Emergency Contact #1 Relationship : . Emergency Contact #2 : . Emergency Contact #2 Phone Number : . Emergency Contact #2 Relationship : . Legal Guardian : No TABATHA CONNELL, RN-Material Assistant - 01/06/2019 13:51 EDT Initial Assessment II Sensory and Motor Deficits : None Current Home Treatments and Equipment : None TABATHA CONNELL RN-Material Assistant - 01/06/2019 13:51 EDT Discharge Needs I Anticipated Discharge Date : 01/09/2019 EDT Anticipated Discharge To, CM : Home independently Current Home Treatment/Equipment : Current Home Treatment/Equipment No qualifying data available. Post Acute/Home Treatments : None TABATHA CONNELL, RN-Material Assistant - 01/06/2019 13:51 EDT Discharge Needs II Professional Skilled Services : Professional Skilled Services No qualifying data available. Needs Assistance with Transportation : Maybe TABATHA CONNELL, RN-Material Assistant - 01/06/2019 13:51 EDT Narrative Note Narrative Note : Prior to admission patient was independent in all areas. Sent from outlying facility. Home plan, [facility] recommended at time of discharge by foster care case manager, possible need for transportation assistance at discharge. TABATHA CONNELL RN-Material Assistant - 01/06/2019 13:51 EDT Electronically signed by Jaron Larsen Conversion Mineral [employer] Processing Labourer Cerner at 08/08/2022 11:11 PM CDT documented in this encounter Plan of Treatment Not on file documented as of this encounter Visit Diagnoses Not on filedocumented in this encounter
--- OUTSIDE RECORDS SUMMARY | 2024-10-15 09:11 | XMS_ITS | Encounter Summary ---
Author Organization [facility] Address [address] [place] [address] Care Team Providers Care Block Splitter Operator Name Role Phone Unavailable Primary Care Provider Unavailabl e Encounter Details Date Type Department Care Team (Late st Contact Info) Description 01/05/2019 Transcribed Document [facility] [place] Family Medicine [address] [place] [address] ProviderMary Kate MD [address] [place] [address] Social History Tobacco Use Types Packs/Day Years Used Date Smoking Tobacco: Never Assessed Sex and Gender Information Value Date Recorded Sex Assigned at Not on file Legal Sex Male 5:22 PM CDT Gender Identity Not on file Sexual Orientation Not on file documented as of this encounter Miscellaneous Notes * Cerner Conversion Note - Mary Kate ProviderMD - 01/05/2019 11:32 AM CDT Treatment Intervention, OT Entered On: 01/08/2019 10:04 EDT Performed On: 01/08/2019 9:30 EDT by PB PACKER OTR/Viet General Information, OT Visit Type, OT : Treatment Note PB PACKER OTR/L - 01/08/2019 9:55 EDT Patient Orders : Order Date Order Ordering 01/04/2019 17:19 OT Evaluation and Treatment Ordered By: ASHLEY MAGANA MD 01/05/2019 11:32 Occupational Therapy Additional Tx Ordered By: Active Diagnoses : 01/05/2019 12:00 Alcohol dependence with withdrawal, unspecified Admission Date : 01/04/2019 16:47 PB PACKER OTR/L - 01/08/2019 11:51 EDT Assisted by, OT : assistant production manager (SAFETY INVESTIGATOR/CAUSE ANALYST) PB PACKER OTR/L - 01/08/2019 9:55 EDT Personal Devices : Personal Devices No Devices Recorded Assistive Devices : Assistive Devices No Devices Recorded PB PACKER OTR/L - 01/08/2019 11:[address] : Fall prevention measures, Fall prevention measures, high risk Isolation Maintained : Contact General Information Comment, OT : Alcohol w/d; pt is questionable historian. Accuracy of information provided by pt may be somewhat questionable. PB PACKER OTR/Viet - 01/08/2019 9:55 EDT General Status Patient Received Status : Supine in bed, Other: tele Treatment Start Time : 01/08/2019 9:07 EDT Patient Left Status : Up in chair, All needs met and within reach, Other: tele; CM notified of pt interest in/request for RW for ensured safety upon return to home. RN/PCT Informed Comment : nursing ok'ed tx; ID and verified. Treatment End Time : 01/08/2019 9:30 EDT Treatment Time : 23 Minute(s) Actual Treatment Time : 23 Minute(s) PB PACKER OTR/Viet - 01/08/2019 9:55 EDT Intervention Summary BP Systolic Pre-intervention : 138 mmHg BP Diastolic Pre-intervention : 88 mmHg Therapist Assessment Pre-intervention : Pt on room air upon arrival. Patient Stated Response During Interv : Pt denied heart palpitations, SOA, and pain. No c/o dizziness/lightheadedness during activity. Denied pain. Therapist Assessment During Intervention : No signs of fatigue or SOA observed during session. BP Systolic Post-intervention : 129 mmHg BP Diastolic Post-intervention : 83 mmHg PB PACKER OTR/Viet - 01/08/2019 9:55 EDT Self Care/Home Management, OT Grooming Device, OT : Other: RW + gait belt Grooming Comment, OT : Pt washed face while standing at sink with supervision. Lower Body Dressing Device, OT : Other: RW + gait belt Lower Body Dressing Comment, OT : Pt donned boxer shorts at EOB with supervision for ensured safety. No LOB during task. Toileting Comment : Pt denied need for toileting. Toilet Transfer Device : Belt, gait, Walker, rolling Toilet Transfer Comment : Pt simulated sit <> stand toilet transfers. Pt completed sit > stand with supervision and stand > sit with SBA + x1 verbal cue for hand placement. PB PACKER OTR/Viet - 01/08/2019 9:55 EDT Functional Mobility Mobility Grid Bed Scooting : Rehab Complete independence (Comment: scoot to EOB in sitting [PB PACKER OTR/Viet - 01/08/2019 11:51 EDT] ) Supine to Sit : Rehab Modified independence (Comment: HOB elevated [PB PACKER OTR/Viet - 01/08/2019 11:51 EDT] ) PB PACKER OTR/Viet - 01/08/2019 9:55 EDT Functional MobilityComment : Functional mobility addressed to improve endurance/strength/balance required for safe/IND OOB self-care performance. Pt demonstrated functional mobility with RW (pt-preferred), gait belt, no LOB, no rest breaks, no observed/reported SOA or fatigue, no reported dizziness/lightheadedness, fair-good safety awareness, and no cues. OT asked pt if he would like to attempt walking without RW (since pt reported not having RW at home); however, pt reported feeling more steady/safe/secure with RW and expressed desire to continue use. Pt also expressed interest in obtaining RW for return to home; CM notified. See PT documentation for further details regarding mobility. PB PACKER OTR/Viet - 01/08/2019 9:55 EDT Activity Tolerance, OT Activity Comment : Fair to good tolerance; pt limited by mildly impaired standing balance and mild weakness. PB PACKER OTR/Viet - 01/08/2019 11:51 EDT Education OT Occupational Therapy Education Grid Activity of Daily Living Training : Verbalizes understanding, Returns demonstration, Needs reinforcement Functional Mobility Training : Verbalizes understanding, Returns demonstration, Needs further teaching PB PACKER OTR/Viet - 01/08/2019 11:51 EDT Plan of Care, OT OT Tx Plan/Goals Established w Patient : Yes Plan of Care Comment, OT : Continue with OT POC. PB PACKER OTR/Viet - 01/08/2019 11:51 EDT Prison Goals, OT Other LTG Grid Goal #1 Goal #2 Goal #3 Goal #4 Goal : Perform UB ADL with min A Perform LB ADL with mod A Perform ADL transfer with min A Pt will perform ADL transfer with supervision and AD prn. Date to Meet : 01/19/2019 EDT 01/19/2019 EDT 01/19/2019 EDT 01/21/2019 EDT Goal Status : Goal met Goal met Goal met Progressing, continue Date Met : 01/06/2019 EDT 01/07/2019 EDT Comment : Simulated task SBA w/donning socks on 01/07/19 Sit to stand with min-CGA on 01/06/19; CGA on 01/07/19 S-SBA on 01/08/19 PB PACKER OTR/Viet - 01/08/2019 11:51 EDT PB PACKER OTR/Viet - 01/08/2019 11:51 EDT PB PACKER OTR/L - 01/08/2019 11:51 EDT PB PACKER OTR/L - 01/08/2019 11:51 EDT Goal #5 Goal #6 Goal : Pt will perform standing UB self-care at sink with supervision and AD prn. Pt will perform LB self-care with supervision and AD prn. Date to Meet : 01/21/2019 EDT 01/21/2019 EDT Goal Status : Goal met Goal met Date Met : 01/08/2019 EDT 01/08/2019 EDT Comment : Washed face while standing @sink w/supervision on 01/08/19 Supervision w/LB dressing on 01/08/19 PB PACKER OTR/L - 01/08/2019 11:51 EDT PB PACKER OTR/L - 01/08/2019 11:51 EDT Treatment Note Subjective Comment : Pt ok'ed tx. Patient's Response to Treatment : Fair to good response; pt limited by mildly impaired standing balance and mild weakness. Pt cooperative and pleasant. Additional Objective Information : SELF-CARE Assessment : Pt has met 2/3 and progressed on 1/3 revised OT goals. All initial OT goals met previously. Pt making rapid progress. Plan for Treatment : Continue with OT POC. PB PACKER OTR/Viet - 01/08/2019 11:51 EDT Pain Assessment Pain Scaled Used : 0-10 Pain scale Pain Score Pre-Intervention : 0 Pain Score During-Intervention : 0 Pain Score Post-Intervention. : 0 PB PACKER OTR/Viet - 01/08/2019 11:51 EDT Image 1 - Images currently included in the form version of this document have not been included in the text rendition version of the form. Anticipated Discharge Needs, OT/PT Anticipated Discharge to : Other: TBD Recommend Continued Therapy at Discharge : Yes PB PACKER OTR/Viet - 01/08/2019 11:[address] [facility] OT Charges OT Selfcare/Hm Mgmt Ea 15 Min : 2 PB PACKER OTR/Viet - 01/08/2019 11:51 EDT Electronically signed by Chava [facility] Conversion Accounts Payable Payroll Coordinator Cerner at 08/08/2022 11:27 PM CDT documented in this encounter Plan of Treatment Not on file documented as of this encounter Visit Diagnoses Not on filedocumented in this encounter
--- OUTSIDE RECORDS SUMMARY | 2024-10-15 09:11 | XMS_ITS | Encounter Summary ---
Author Organization [employer] [facility] [facility] Address [address] [place] [address] Care Team Providers Care Gas Operation Manager Name Role Phone Unavailable Primary Care Provider Unavailabl e Encounter Details Date Type Department Care Team (Late st Contact Info) Description 01/08/2019 Transcribed Document [facility] Radiology [address] [place] [address] Akshat Elise MD [address] [place] [address] [address] [id number] Social History Tobacco Use Types Packs/Day Years Used Date Smoking Tobacco: Never Assessed Sex and Gender Information Value Date Recorded Sex Assigned at Not on file Legal Sex Male 5:22 PM CDT Gender Identity Not on file Sexual Orientation Not on file documented as of this encounter Miscellaneous Notes * Cerner Conversion Note - Akshat Elise MD - 01/08/2019 11:51 AM EDT DATE OF ADMISSION: 01/04/2019 DATE OF DISCHARGE: 01-08-2019 CONSULTS: Dr. Mcclellan, GI, Dr. Steffany Hubbard, GI, Nevaeh Romeo, Neurology. PROCEDURES PERFORMED: Esophagogastroduodenoscopy by Dr. Steffany Hubbard on January 06 showed a Susana-Ruiz tear with stigmata of recent bleeding. Two Endo clips placed. NG tube trauma noted to gastric body with one erosion present with adherent thrombin clot and Endo clip placed on this as well. Duodenum was normal. PRIMARY CARE DOCTOR: Jenae Feliciano ADMISSION DIAGNOSES: 1. Alcohol withdrawal. 2. Delirium tremens. 3. Acute upper gastrointestinal bleed. 4. Coffee-ground emesis. 5. Seizure disorder. 6. Acute renal failure. 7. Hyponatremia. 8. Hypertension. 9. Dyslipidemia. 10. Anxiety. 11. FULL CODE. DISCHARGE DIAGNOSES: 1. Alcohol withdrawal. 2. Delirium tremens. 3. Acute upper gastrointestinal bleed. 4. Coffee-ground emesis. 5. Seizure disorder. 6. Acute renal failure. 7. Hyponatremia. 8. Hypertension. 9. Dyslipidemia. 10. Anxiety. 11. FULL CODE. 12. Coffee ground emesis. 13. Severe esophagitis. 14. Small hiatal hernia. 15. Susana-Ruiz tear with stigmata of recent bleeding. HISTORY OF PRESENT ILLNESS: A 53-year-old gentleman appears older than stated age, presents from [place], [place] with two-day history of nausea, vomiting. Started at 04:30 in the morning, multiple episodes since that time. He admits to drinking half a gallon of vodka every four days. States he had been diagnosed with seizures from alcohol use in the past that he had one last night and then earlier in the morning in the ER. At the hospital, was found to be tremulous. Last alcoholic beverage was the day before. Apparently, he had gone to the [place] about one year ago and brought over to [facility] because of seizures at that time. He is given a rally bag as well as Valium. Heart rate in the 150s, appears anxious, shaking and signs of obvious alcohol withdrawal. HOSPITAL COURSE: Patient admitted to the ICU for alcohol withdrawal, daily rally bags. The CIWA protocol was started and he was given multiple doses of Ativan including 14 mg IV within the first 24 hours. This was slowly tapered down. His hemoglobin would also come down from 15.5 at the time of admission down to 11 down to 7.8. Much of this was dilutional from the IV fluids as well as the GI bleed. Acute renal failure. His creatinine was 3.6 at time of admission. Would come down to 0.8 by time of discharge after resuscitation. Patient had hyponatremia with hypovolemia thought to be secondary to alcohol abuse. This would improve as well to 138 by the time of discharge. Hypertension, Coreg twice a day initially held but eventually restarted. Lisinopril 20 held for acute renal failure. Simvastatin held as he was made n.p.o. GI was consulted. They wanted to wait until his DTs has had resolved before scoping it but they performed EGD on January 06, which showed moderately severe esophagitis at the entire esophagus, small hiatal hernia and there was a Susana-Ruiz tear with stigmata of recent bleeding. Two Endo clips were placed. NG tube trauma noted in the gastric body with one erosion present with adherent thrombin clot and Endo clip placed on this as well. Duodenum was normal. Patient continued to improve. He is able to get moved out of the ICU on January 07. Herrera catheter removed. Seen by Nevaeh Romeo with Neurology on January 05. Margarita Moe, nurse practitioner with Neurology on January 06 without seizures, most likely related to heavy alcohol abuse. No alcohol withdrawal. Continue Kera. They want the patient to follow up with Neurology as an outpatient 46 weeks after discharge. PHYSICAL EXAMINATION: Performed on January 08. VITAL SIGNS: Temperature of 98, blood pressure 129/83, heart rate of 102, respiratory rate of 18, 97% on room air. GENERAL: No acute distress. Alert and oriented x3, afebrile. CHEST: Clear to auscultation bilaterally. No wheezes, rales, rhonchi. CARDIOVASCULAR: Regular rate and rhythm S1, S2. No murmurs, rubs, or gallops. Minimal tachycardia. Heart rate around 102. CHEST: Clear to auscultation bilaterally. No wheezes, rales, rhonchi. CARDIOVASCULAR: Regular rate and rhythm. Abdominal exam positive bowel sounds. Soft, nontender, nondistended. EXTREMITIES: No cyanosis, clubbing, edema. Pulses 2+. PSYCHIATRIC: No anxiety, depression. Appears much more comfortable today. DISCHARGE CONDITION: Stable. DISPOSITION: [facility] evaluation. ACTIVITY: Advance as tolerated. Obviously, no driving until cleared by Neurology. DIET: Advance as tolerated. No alcohol. FOLLOWUP INSTRUCTIONS: 1. Follow up with GI, who is supposed to call him at home and schedule a followup appointment. 2. Follow up with Neurology in four weeks. 3. Follow up with primary care provider in one to two weeks. DISCHARGE MEDICATIONS: 1. Hydrochlorothiazide 25 mg p.o. daily. 2. Lisinopril 10 mg daily. 3. Simvastatin 20 mg p.o. q.h.s. 4. Coreg 6.25 p.o. b.i.d. 5. Folic acid 1 mg p.o. daily. 6. Multivitamin p.o. daily. 7. Protonix 40 p.o. b.i.d. #60. 8. Venlafaxine 37.5 p.o. b.i.d. 9. Keppra 500 p.o. b.i.d. 10. Oxazepam 10 mg p.o. t.i.d. x3 days, then b.i.d. x3 days, then daily x3 days, then stop. 11. Thiamine 100 mg p.o. daily. TIME SPENT: 35 minutes spent on the followup and discharge of this pleasant gentleman, greater than 50% of time spent on counseling and coordination. Akshat Elise M.D. Dict: 01/08/2019 10:51:04 Trans: 01/08/2019 12:05:25 CC1: Akshat Elise M.D. CC2: Steffany Hubbard MD CC3: Jenae Feliciano documented in this encounter Plan of Treatment Not on file documented as of this encounter Visit Diagnoses Not on filedocumented in this encounter
--- OUTSIDE RECORDS SUMMARY | 2024-10-15 09:11 | XMS_ITS | Encounter Summary ---
Author Organization [employer] Address [address] [place] [address] Care Team Providers Care Watch Engine Operator Name Role Phone Unavailable Primary Care Provider Unavailabl e Encounter Details Date Type Department Care Team (Late st Contact Info) Description 01/07/2019 Transcribed Document [facility] [place] Family Medicine [address] [place], [place] [id number] ProviderMary Kate MD [address] [place] [address] Social History Tobacco Use Types Packs/Day Years Used Date Smoking Tobacco: Never Assessed Sex and Gender Information Value Date Recorded Sex Assigned at Not on file Legal Sex Male 5:22 PM CDT Gender Identity Not on file Sexual Orientation Not on file documented as of this encounter Miscellaneous Notes * Cerner Conversion Note - Mary Kate ProviderMD - 01/07/2019 1:15 PM CDT Patient: MING MILLS Age: 53 years Sex: Male : 1965 Associated Diagnoses: None Author: STEFFANY HUBBARD MD-ADEN Basic Information up in chair, just finished with PT Tolerating clears, says he is ready for a Big mac No abdominal pain, no nausea. Review of Systems Constitutional: No fever, No fatigue. Eye: No icterus, No blurring. Respiratory: No shortness of breath, No cough. Cardiovascular: No chest pain, No palpitations. Gastrointestinal: No nausea, No vomiting, No diarrhea, No constipation, No abdominal pain. Integumentary: No rash, No pruritus. Health Status Allergies: Allergies (2) Active Reaction No Known Allergies None Documented No Known Medication Allergies None Documented Current medications: None, (Selected) Inpatient Medications Ordered Ativan: 1 mg, [...] solution: 3 mL, Nebulized Inhalation, RT_Q6H Keppra: 500 mg, 100 mL, 400 mL/Hr, IV Piggyback, Q12H Lopressor: 25 mg, Oral, Q6H, PRN: Hypertension MiraLax: 17 Gram, Oral, Daily, PRN: Constipation Phenergan: 12.5 mg, IV Push, Q6H, PRN: Nausea/Vomiting Protonix: 40 mg, IV Push, BID Reglan: 10 mg, IV Push, Q6HInt Restoril: 15 mg, Oral, At Bedtime, PRN: Sleep Serax: 10 mg, Oral, TID Sodium Chloride 0.9% intravenous solution 3,000 mL: 175 mL/Hr, IntraVENous Tylenol: 650 mg, Oral, Q4H, PRN: Pain (Mild 1-3) Zofran: 4 mg, IV Push, Q4H, PRN: Nausea/Vomiting Zofran: 4 mg, Oral, Q4H, PRN: Nausea/Vomiting haloperidol: 2 mg, IntraMuscular, Q4H, PRN: Agitation labetalol: 20 mg, IV Push, Q1H, PRN: Other (See Comment) Prescriptions Prescribed Multiple Vitamins oral capsule: 1 [...] Tab, Oral, BID, 60 Tab, 0 Refill(s) Problem list: All Problems Hypertension / SNOMED CT 8138731428 / Confirmed Hyperlipidemia / SNOMED CT 18366946 / Confirmed Hyperlipidemia / SNOMED CT 83153534 / Confirmed HTN - Hypertension / SNOMED CT 9388798463 / Confirmed History of obstructive sleep apnea / IMO [id number] / Confirmed Hiatal hernia / SNOMED CT 274683487 / Confirmed Hiatal hernia / SNOMED CT 951945390 / Confirmed GERD - Gastro-esophageal reflux disease / SNOMED CT 9206984324 / Confirmed Acid reflux / SNOMED CT 673599455 / Confirmed Depression / SNOMED CT 13437963 / Confirmed Depression / SNOMED CT 091120211 / Confirmed Alcoholism / SNOMED CT 20151022 / Confirmed Alcohol abuse / SNOMED CT 17835875 / Confirmed Canceled: No Chronic Problems / Cerner NKP Physical Examination VS/Measurements Vitals Signs (last 24 hrs) Last Charted Minimum Maximum Temp 98.8 (JAN 07 08:00) 97.6 (JAN 07 00:00) 98.8 (JAN 07 08:00) Mon HR 88 (JAN 07 12:00) 76 (JAN 06 19:00) 130 (JAN 07 09:00) Resp Rate 18 (SEP 18 12:00) L 11 (DEC 18 02:00) H 42 (DEC 18 07:00) SBP H 146 (DEC 18 12:00) 126 (DEC 17 16:00) H 183 (DEC 18 09:00) DBP 88 (DEC 18 12:00) 68 (DEC 17 17:00) H 99 (DEC 17 20:00) MAP 112 (DEC 18 12:00) 92 (DEC 17 14:00) 127 (DEC 18 09:00) SpO2 98.00 (DEC 18 12:00) L 89.00 (DEC 18 09:00) 100.00 (DEC 17 20:30) General: No acute distress. Appearance: Well nourished. Eye: Pupils are equal, round and reactive to light, Extraocular movements are intact, Normal conjunctiva. Sclera: Within normal limits. HENT: Normocephalic, Normal hearing, Oral mucosa is moist. Nose: Both nostrils, Within normal limits, Patent. Mouth: pink. Neck: Supple, Non-tender, No jugular venous distention. Respiratory: Lungs are clear to auscultation, Respirations are non-labored, Breath sounds are equal. Pattern: Regular. Cardiovascular: Normal rate, Regular rhythm, No murmur, No gallop, No edema. Arterial pulses: Bilateral, Dorsalis pedis, Within normal limits. Gastrointestinal: Soft, Non-tender, Non-distended, Normal bowel sounds, No organomegaly. Abdomen: Liver ( Within normal limits ). Musculoskeletal: Normal range of motion, Normal strength, No tenderness, No deformity, Normal gait. Integumentary: Warm, Dry, [place], No rash. Integumentary exam: Face, Chest, Arm, Abdomen, Leg. Neurologic: Alert, Oriented, No focal deficits. Orientation: To person, To place, To time. Psychiatric: Cooperative, Appropriate mood & affect, Normal judgment. Review / Management Results review: Labs (Last four charted values) WBC 4.2 (DEC 18) L 3.1 (DEC 17) 4.9 (DEC 16) H 10.4 (SEP 15) HB L 8.3 (DEC 18) L 8.1 (DEC 18) L 8.4 (DEC 18) L 8.0 (SEP 17) HCT L 24.3 (DEC 18) L 24.8 (DEC 18) L 25.3 (SEP 18) L 24.6 (SEP 17) Plt L 84 (SEP 18) L 69 (SEP 17) L 88 (SEP 16) L 125 (SEP 15) Na 138 (SEP 18) 141 (SEP 17) L 133 (SEP 16) L 129 (SEP 15) K 3.6 (SEP 18) L 3.3 (SEP 17) 3.7 (SEP 16) 4.2 (SEP 15) Cl 105 (SEP 18) 105 (SEP 17) L 92 (SEP 16) L 84 (SEP 15) CO2 25 (SEP 18) 28 (SEP 17) 29 (SEP 16) 27 (SEP 15) BUN 9 (SEP 18) H 27 (SEP 17) H 55 (SEP 16) H 61 (SEP 15) Cr 0.76 (SEP 18) 0.95 (SEP 17) H 1.92 (SEP 16) H 2.53 (SEP 15) Glu R 84 (SEP 18) 87 (SEP 17) H 129 (SEP 16) H 167 (SEP 15) Ca L 7.8 (SEP 18) L 7.5 (SEP 17) L 7.6 (SEP 16) L 8.0 (SEP 15) Lactic 1.6 (SEP 16) PT 10.0 (SEP 16) INR 1.0 (SEP 16) PTT L 24.4 (SEP 15) AST 36 (SEP 18) 33 (SEP 17) H 45 (SEP 16) H 46 (SEP 15) ALT 35 (SEP 18) 33 (SEP 17) 51 (SEP 16) 62 (SEP 15) ALK P 41 (SEP 18) 39 (SEP 17) 50 (SEP 16) 62 (SEP 15) T Bili 0.4 (SEP 18) 0.4 (SEP 17) 0.5 (SEP 16) 0.6 (SEP 15) PTN L 6.0 (SEP 18) L 5.9 (SEP 17) 7.2 (SEP 16) 7.7 (SEP 15) ALB L 2.7 (SEP 18) L 2.8 (SEP 17) 3.4 (SEP 16) 3.7 (SEP 15) Troponin H 0.048 (SEP 16) H 0.076 (SEP 15) . Impression and Plan Coffee ground emesis on admission with anemia. EGD found moderately severe esophagitis of the entire esophagus, small hiatal hernia, Suasna -Ruiz tear with two endoclips placed. There was NG tube trauma noted in gastric body with one erosion present with clot and endoclip placed. OK to change from IV PPI gtt to IV PPI. We also discussed stopping all ETOH use at the time of discharge. Will advance to a low residue diet. He will need to return for a follow up EGD in 2 months, our office will contact him next week to set up and I have confirmed phone number with the patient. He will need to stay on BID PPI until he returns for a follow up EGD. This is in the planned status of his discharge plan. I, Gabby Rosado PA-C, have scribed this note for Dr Steffany Hubbard Orders PowerOrders Nutrition Services: Diet, Adult (Order): Start: 01/07/2019 16:30 EDT, GI Soft / Low Residue / Low Fiber Diet, Isolation: Standard Precautions. I have personally interviewed the patient, performed the physical examination and formulated a treatment plan. documented in this encounter Plan of Treatment Not on file documented as of this encounter Visit Diagnoses Not on filedocumented in this encounter
--- OUTSIDE RECORDS SUMMARY | 2024-10-15 09:11 | XMS_ITS | Encounter Summary ---
Author Organization [employer] Address [address] [place] [address] Care Team Providers Care Finance Executive Name Role Phone Unavailable Primary Care Provider Unavailabl e Encounter Details Date Type Department Care Team (Late st Contact Info) Description 01/07/2019 Transcribed Document [facility] [place] [address] [place] [address] ProviderMary Kate MD [address] [place] [address] Social History Tobacco Use Types Packs/Day Years Used Date Smoking Tobacco: Never Assessed Sex and Gender Information Value Date Recorded Sex Assigned at Not on file Legal Sex Male 5:22 PM CDT Gender Identity Not on file Sexual Orientation Not on file documented as of this encounter Miscellaneous Notes * Alfonzoner Conversion Note - Historical ProviderMD - 01/07/2019 9:45 AM CDT Boarder Machine Details Entered On: 01/07/2019 12:30 EDT Performed On: 01/07/2019 9:45 EDT by Margarita Santamaria Rn Order Details Transport Mode Order Detail : Bed (including specialty) Isolation Precautions Order Detail : Standard Precautions Order Detail : N/A IV Order Detail : 1 Oxygen Order Detail : 1 Nurse Collect Order Detail : 1 Lift/Transfer : Moderate assist Central Line Order Detail : No Room Service : Appropriate Arterial Line : No Margarita Santamaria, Moisés - 01/07/2019 12:29 EDT Electronically signed by Jaron Larsen Conversion University Services Program Associate Cerner at 08/08/2022 11:14 PM CDT documented in this encounter Plan of Treatment Not on file documented as of this encounter Visit Diagnoses Not on filedocumented in this encounter
--- OUTSIDE RECORDS SUMMARY | 2024-10-15 09:11 | XMS_ITS | Encounter Summary ---
Author Organization [employer] [facility] Address [address] [place] [address] Care Team Providers Care Wall Man Name Role Phone Unavailable Primary Care Provider Unavailabl e Encounter Details Date Type Department Care Team (Late st Contact Info) Description 01/05/2019 Transcribed Document [facility] [place] Family Medicine [address] [place] [address] ProviderMary Kate MD [address] [place] [address] Social History Tobacco Use Types Packs/Day Years Used Date Smoking Tobacco: Never Assessed Sex and Gender Information Value Date Recorded Sex Assigned at Not on file Legal Sex Male 5:22 PM CDT Gender Identity Not on file Sexual Orientation Not on file documented as of this encounter Miscellaneous Notes * Cerner Conversion Note - Historical ProviderMD - 01/05/2019 2:17 PM CDT Neurodiagnostics Event Note Entered On: 01/05/2019 14:17 EDT Performed On: 01/05/2019 14:17 EDT by Sheila Patten Neurodiagnostic Tech Neurodiagnostics Event Note Neurodiagnostic Event Date/Time : 01/05/2019 14:17 EDT Neurodiagnostic Event Location : Assigned room Neurodiagnostic Event Details : Procedure completed Sheila Patten Neurodiagnostic Tech - 01/05/2019 14:17 EDT documented in this encounter Plan of Treatment Not on file documented as of this encounter Visit Diagnoses Not on filedocumented in this encounter
--- OUTSIDE RECORDS SUMMARY | 2024-10-15 09:11 | XMS_ITS | Encounter Summary ---
Author Organization [employer] Address [address] [place] [address] Care Team Providers Care City Dispatch Supervisor Name Role Phone Unavailable Primary Care Provider Unavailabl e Encounter Details Date Type Department Care Team (Late st Contact Info) Description 01/05/2019 Transcribed Document [facility] [place] [address] [place] [address] ProviderMary Kate MD [address] [place] [address] Social History Tobacco Use Types Packs/Day Years Used Date Smoking Tobacco: Never Assessed Sex and Gender Information Value Date Recorded Sex Assigned at Not on file Legal Sex Male 5:22 PM CDT Gender Identity Not on file Sexual Orientation Not on file documented as of this encounter Miscellaneous Notes * Cerner Conversion Note - Historical ProviderMD - 01/05/2019 2:00 AM CDT Hemodialysis Technician Details Entered On: 01/05/2019 11:47 EDT Performed On: 01/05/2019 8:00 EDT by Addie Dozier RN Order Details Transport Mode Order Detail : Bed (including specialty) Isolation Precautions Order Detail : Standard Precautions Order Detail : N/A IV Order Detail : 1 Oxygen Order Detail : 1 Nurse Collect Order Detail : 1 Lift/Transfer : Moderate assist Central Line Order Detail : No Room Service : Not Appropriate Arterial Line : No Addie Dozier, SHANELL - 01/05/2019 11:46 EDT documented in this encounter Plan of Treatment Not on file documented as of this encounter Visit Diagnoses Not on filedocumented in this encounter
--- OUTSIDE RECORDS SUMMARY | 2024-10-15 09:11 | XMS_ITS | Encounter Summary ---
Author Organization [employer] Address [address] [place] [address] Care Team Providers Care Key Account Coordinator Name Role Phone Unavailable Primary Care Provider Unavailabl e Encounter Details Date Type Department Care Team (Late st Contact Info) Description 01/04/2019 Transcribed Document [facility] [place] Family Medicine [address] [place] [address] ProviderMary Kate MD [address] [place] [address] Social History Tobacco Use Types Packs/Day Years Used Date Smoking Tobacco: Never Assessed Sex and Gender Information Value Date Recorded Sex Assigned at Not on file Legal Sex Male 5:22 PM CDT Gender Identity Not on file Sexual Orientation Not on file documented as of this encounter Miscellaneous Notes * Cerner Conversion Note - Mary Kate ProviderMD - 01/04/2019 5:19 PM CDT Spiritual Care Assessment Entered On: 01/06/2019 10:44 EDT Performed On: 01/06/2019 10:30 EDT by VICKIE LINDO Chaplain-Non Cert General Information Initial Visit : Yes Referred by : Nurse Ministry Provided to : Patient VICKIE LINDO Chaplain-Non Cert - 01/06/2019 10:42 EDT Spiritual Assessment Spiritual Assessment Comment/Summary Points : Prosper is a 53-year-old patient was admits to feeling weak today. He is seen while sitting up in a recliner and eating a clear liquid diet. Spirital Assessment Comment/Summary Report : SPIRITUAL ASSESSMENT COMMENT/SUMMARY No qualifying data available. VICKIE LINDO Chaplain-Non Cert - 01/06/2019 10:42 EDT Interventions Emotional Support : Emotional, Feelings expressed VICKIE LINDO Chaplain-Non Cert - 01/06/2019 10:42 EDT Electronically signed by Jaron Larsen Conversion Registered Medical Transcriptionist Carlitos at 08/08/2022 11:26 PM CDT documented in this encounter Plan of Treatment Not on file documented as of this encounter Visit Diagnoses Not on filedocumented in this encounter
--- OUTSIDE RECORDS SUMMARY | 2024-10-15 09:11 | XMS_ITS | Encounter Summary ---
Author Organization [employer] [facility] Address [address] [place] [address] Care Team Providers Care Metal Spinner Name Role Phone Unavailable Primary Care Provider Unavailabl e Encounter Details Date Type Department Care Team (Late st Contact Info) Description 01/04/2019 Transcribed Document [facility] [place] Family Medicine [address] [place] [address] ProviderMary Kate MD [address] [place] [address] Social History Tobacco Use Types Packs/Day Years Used Date Smoking Tobacco: Never Assessed Sex and Gender Information Value Date Recorded Sex Assigned at Not on file Legal Sex Male 5:22 PM CDT Gender Identity Not on file Sexual Orientation Not on file documented as of this encounter Miscellaneous Notes * Cerner Conversion Note - Historical ProviderMD - 01/04/2019 5:19 PM CDT Consult Phone Call Documentation Entered On: 01/05/2019 9:16 EDT Performed On: 01/05/2019 9:00 EDT by LINDA GATICA Phone Call for Consults Consult Phone Call/Page Attempt : First call Consult Reason : coffee ground emesis Consult, Additional Information : call LINDA Jorge - 01/05/2019 9:15 EDT documented in this encounter Plan of Treatment Not on file documented as of this encounter Visit Diagnoses Not on filedocumented in this encounter
--- OUTSIDE RECORDS SUMMARY | 2024-10-15 09:11 | XMS_ITS | Encounter Summary ---
Author Organization [employer] [facility] Address [address] [place] [address] Care Team Providers Care Mma Fighter Name Role Phone Unavailable Primary Care Provider Unavailabl e Encounter Details Date Type Department Care Team (Late st Contact Info) Description 01/08/2019 Transcribed Document [facility] [place] Family Medicine [address] [place] [address] ProviderMary Kate MD [address] [place] [address] Social History Tobacco Use Types Packs/Day Years Used Date Smoking Tobacco: Never Assessed Sex and Gender Information Value Date Recorded Sex Assigned at Not on file Legal Sex Male 5:22 PM CDT Gender Identity Not on file Sexual Orientation Not on file documented as of this encounter Miscellaneous Notes * Cerner Conversion Note - Mary Kate Cardenas MD - 01/08/2019 3:52 PM CDT Final Discharge Planning Entered On: 01/08/2019 15:54 EDT Performed On: 01/08/2019 15:52 EDT by Tiffany Douglas Social Worker-Dottie Final Discharge Planning Discharge Arrangements : Patient Post-Acute Information Patient Name: PROSPER DOUGLAS Gender: Male : [birth year] Age: 53 Years [place] Referral(s): Service: Organization: Business Address: Phone Number: [employer] [address], [address] Transportation Needs : Family/Friend Patient/Family Notified of Plan : Yes Is Patient Ready for Discharge? : Yes Discharge To Care Management : Home/Residential/Assisted or Self Care -01 Tiffany Douglas Social Worker-Bsw - 01/08/2019 15:52 EDT Final Narrative Note Final Narrative Note : 01/08 Per PT, pt would benefit from RW at home. Met with pt at the bedside. Discussed arranging RW for home use and he was agreeable. Gave pt choice for DME provider. Referral sent to [facility]. [facility] referral was also made. Tiffany Douglas, Battalion Chief-Independent Jeweler - 01/08/2019 15:52 EDT documented in this encounter Plan of Treatment Not on file documented as of this encounter Visit Diagnoses Not on filedocumented in this encounter
--- OUTSIDE RECORDS SUMMARY | 2024-10-15 09:11 | XMS_ITS | Encounter Summary ---
Author Organization [employer] [facility] Address [address] [place] [address] Care Team Providers Care Woodworking Shop Laborer Name Role Phone Unavailable Primary Care Provider Unavailabl e Encounter Details Date Type Department Care Team (Late st Contact Info) Description 01/07/2019 Transcribed Document [facility] [place] [facility] [place] [address] [place] [address] ProviderMary Kate MD [address] [place] [address] Social History Tobacco Use Types Packs/Day Years Used Date Smoking Tobacco: Never Assessed Sex and Gender Information Value Date Recorded Sex Assigned at Not on file Legal Sex Male 5:22 PM CDT Gender Identity Not on file Sexual Orientation Not on file documented as of this encounter Miscellaneous Notes * Cerner Conversion Note - Historical ProviderMD - 01/07/2019 2:20 PM CDT Sepsis Screening Tool Entered On: 01/07/2019 14:42 EDT Performed On: 01/07/2019 14:20 EDT by Margarita Santamaria, Rn Provider Notification Chain of Command Initiated : No Rapid Response Team Called : No Results to Provider Comment : already following patient Margarita Santamaria Rn - 01/07/2019 14:40 EDT documented in this encounter Plan of Treatment Not on file documented as of this encounter Visit Diagnoses Not on filedocumented in this encounter
--- OUTSIDE RECORDS SUMMARY | 2024-10-15 09:11 | XMS_ITS | Encounter Summary ---
Author Organization [employer] [facility] Address [address] [place] [address] Care Team Providers Care Precision Agronomist Name Role Phone Unavailable Primary Care Provider Unavailabl e Encounter Details Date Type Department Care Team (Late st Contact Info) Description 01/07/2019 Transcribed Document [facility] [place] Family Medicine [address] [place] [address] ProviderMary Kate MD [address] [place] [address] Social History Tobacco Use Types Packs/Day Years Used Date Smoking Tobacco: Never Assessed Sex and Gender Information Value Date Recorded Sex Assigned at Not on file Legal Sex Male 5:22 PM CDT Gender Identity Not on file Sexual Orientation Not on file documented as of this encounter Miscellaneous Notes * Cerner Conversion Note - Historical ProviderMD - 01/07/2019 5:00 AM CDT Chart Check - Review Order Profile Entered On: 01/07/2019 5:47 EDT Performed On: 01/07/2019 5:00 EDT by Day Teixeira Rn Chart Check Powerplans Initiated/Discontinued as Appropriate : Yes All Active Orders Reviewed : Yes Day Teixeira Rn - 01/07/2019 5:47 EDT documented in this encounter Plan of Treatment Not on file documented as of this encounter Visit Diagnoses Not on filedocumented in this encounter
--- OUTSIDE RECORDS SUMMARY | 2024-10-15 09:11 | XMS_ITS | Encounter Summary ---
Author Organization [employer] Address [address] [place] [address] Care Team Providers Care Power Barker Operator Name Role Phone Unavailable Primary Care Provider Unavailabl e Encounter Details Date Type Department Care Team (Late st Contact Info) Description 01/05/2019 Transcribed Document [facility] [place] [address] [place] [address] ProviderMary [place] [address] Social History Tobacco Use Types Packs/Day Years Used Date Smoking Tobacco: Never Assessed Sex and Gender Information Value Date Recorded Sex Assigned at Not on file Legal Sex Male 5:22 PM CDT Gender Identity Not on file Sexual Orientation Not on file documented as of this encounter Miscellaneous Notes * Cerner Conversion Note - Mary Kate ProviderMD - 01/05/2019 2:11 PM CDT Treatment Intervention, PT Entered On: 01/07/2019 14:17 EDT Performed On: 01/07/2019 13:50 EDT by Dean Delgado Physical Therapist General Information, PT Visit Type, PT : Treatment Note Patient Orders : Order Date Order Ordering 01/04/2019 17:19 PT Evaluation and Treatment Ordered By: ASHLEY MAGANA MD 01/05/2019 14:11 PT Additional Treatment Ordered By: Dean Delgado Physical Therapist Active Diagnoses : 01/05/2019 12:00 Alcohol dependence with withdrawal, unspecified Therapy Diagnosis, PT : reduced mobility Admission Date : 01/04/2019 16:47 Personal Devices : Personal Devices No Devices Recorded Assistive Devices : Assistive Devices No Devices Recorded Precautions in Place : Fall prevention measures, Fall prevention measures, high risk Isolation Maintained : Contact General Information Comment, PT : Pt admitted with recent nausea/vomiting, seizures. Being treated for alcohol withdrawl, acute renal failure, seizures, GI bleed. Dean Delgado Physical Therapist - 01/07/2019 14:12 EDT General Status Patient Received Status : Supine in bed, Other: BP/O2/HR monitors, IV, catheter Treatment Start Time : 01/07/2019 13:27 EDT Patient Left Status : Up in chair, Chair alarm activated, All needs met and within reach RN/PCT Informed Comment : RN ok'd PT Treatment End Time : 01/07/2019 13:50 EDT Treatment Time : 23 Minute(s) Dean Delgado Physical Therapist - 01/07/2019 14:12 EDT Intervention Summary Heart Rate/Pulse Pre-intervention : 99 bpm Respiratory Rate Pre-intervention : 24 Breaths/Min BP Systolic Pre-intervention : 170 mmHg BP Diastolic Pre-intervention : 91 mmHg O2 Pre-Intervention : 2L SpO2 Pre-Intervention : 98 % Dean Delgado Physical Therapist - 01/07/2019 14:12 EDT Edu Topics Physical Therapy Education Grid Gait Training : Verbalizes understanding, Needs further teaching, Returns demonstration Role of Physical Therapy : Verbalizes understanding, Needs further teaching Safety : Verbalizes understanding, Needs further teaching, Returns demonstration Therapeutic Exercises : Verbalizes understanding, Needs further teaching, Returns demonstration Transfer Training : Verbalizes understanding, Needs further teaching, Returns demonstration Use of Assistive Device : Verbalizes understanding, Needs further teaching, Returns demonstration Dean Delgado Physical Therapist - 01/07/2019 14:12 EDT Plan of Care, PT PT Tx Plan/Goals Established w Patient : Yes Dean Delgado Physical Therapist - 01/07/2019 14:12 EDT [facility] Goals Other PT LTG Grid Goal #1 [...] Goal Status : Goal met Progressing, continue Progressing, continue Date Met : 01/06/2019 EDT Dean Delgado Physical Therapist - 01/07/2019 14:12 EDT Dean Delgado Physical Therapist - 01/07/2019 14:12 EDT Dean Delgado Physical Therapist - 01/07/2019 14:12 EDT Treatment Note Subjective Comment : Pt agreeable to PT treatment. Feeling better overall. Patient's Response to Treatment : Good Additional Objective Information : -supine to sit: SBA -sit to stand: SBA with cues for hand placement and safe RWx use -gait: CGA 125ft with gait belt and 2L O2 -stand to sit: CGA with cues for hand placement -ther-ex: long arc quads, marches, scapular squeezes x 12 each -vitals WNLs after gait Assessment : Pt with good increase in gait tolerance today and less assist for all mobility. He is making steady progress towards all goals and has met 1/3. Plan for Treatment : continue POC Dean Delgado, Physical Therapist - 01/07/2019 14:12 EDT Pain Assessment Pain Scaled Used : 0-10 Pain scale Pain Score Pre-Intervention : 0 Dean Delgado, Physical Therapist - 01/07/2019 14:12 EDT Image 1 - Images currently included in the form version of this document have not been included in the text rendition version of the form. [facility] PT Charges PT Ther Activities Ea 15 Min : 1 Gait Training Each 15 Min : 1 Dean Delgado, Physical Therapist - 01/07/2019 14:12 EDT documented in this encounter Plan of Treatment Not on file documented as of this encounter Visit Diagnoses Not on filedocumented in this encounter
--- OUTSIDE RECORDS SUMMARY | 2024-10-15 09:11 | XMS_ITS | Encounter Summary ---
Author Organization [employer] Address [address] [place] [address] Care Team Providers Care White Work Cleaner Name Role Phone Unavailable Primary Care Provider Unavailabl e Encounter Details Date Type Department Care Team (Late st Contact Info) Description 01/06/2019 Transcribed Document [facility] [place] [address] [place] [address] ProviderMary Kate MD [address] [place] [address] Social History Tobacco Use Types Packs/Day Years Used Date Smoking Tobacco: Never Assessed Sex and Gender Information Value Date Recorded Sex Assigned at Not on file Legal Sex Male 5:22 PM CDT Gender Identity Not on file Sexual Orientation Not on file documented as of this encounter Miscellaneous Notes * Cerner Conversion Note - Mary Kate ProviderMD - 01/06/2019 7:17 AM CDT [facility] IntraOp Summary Primary Physician: RAZIA LANTIGUA MD-GAE Finalized Date/Time: 01/06/19 07:46:41 Pt. Name: [place] Viet KrishnaB./Sex: 1965 Male Med Rec #: [id number] Physician: ASHLEY MAGANA MD Financial #: [id number] Pt. Type: I Room/Bed: [facility] Admit/Disch: 01/04/19 16:47:00 - Institution: [facility] - Case Attendance Entry 1 Entry 2 Entry 3 Case Attendee RAZIA LANTIGUA MD-GAE Bicknell, Ashley, RN PRESCOTT, JACHELE Role Performed Surgeon/Proceduralist, Operations Engineer, First Scrub, First First Time In 01/06/19 07:11:00 01/06/19 07:02:00 01/06/19 07:03:00 Time Out 01/06/19 07:30:00 01/06/19 07:45:00 01/06/19 07:09:00 Procedure Esophagogastroduodenosco Esophagogastroduodenosco Esophagogastroduodenosco py py py Other Attendee Superficial Wound Closed By: Last Modified By: Sharmila Chavez, Sharmila Liao, Sharmila Liao RN 01/06/19 07:46:04 01/06/19 07:46:04 01/06/19 07:46:04 Entry 4 Entry 5 Case Attendee MARLENE BARON, PV DESIGN ENGINEER DIANE REYNOSO, JARVIS Role Performed PV DESIGN ENGINEER/Nurse Market Research Executive Scrub, First Time In 01/06/19 07:04:00 01/06/19 07:09:00 Time Out 01/06/19 07:30:00 01/06/19 07:30:00 Procedure Esophagogastroduodenosco Esophagogastroduodenosco py py Other Attendee Superficial Wound Closed By: Last Modified By: Sharmila Chavez RN Bicknell, Ashley, RN 01/06/19 07:46:04 01/06/19 07:46:04 [facility] - Case Attendance Audit 01/06/19 07:46:04 Heddler Tier: BICKNEA Modifier: BICKNEA 1 <*> Procedure Esophagogastroduodenoscopy 2 <+> Time Out 2 <*> Procedure Esophagogastroduodenoscopy 3 <*> Procedure Esophagogastroduodenoscopy 4 <*> Procedure Esophagogastroduodenoscopy 5 <*> Procedure Esophagogastroduodenoscopy 01/06/19 07:45:57 Heddler Tier: BICKNEA Modifier: BICKNEA 1 <+> Time Out 1 <*> Procedure Esophagogastroduodenoscopy 4 <+> Time Out 4 <*> Procedure Esophagogastroduodenoscopy 5 <+> Time Out 5 <*> Procedure Esophagogastroduodenoscopy 01/06/19 07:11:49 Heddler Tier: BICKNEA Modifier: BICKNEA 1 <*> Time In 01/06/19 07:02:00 1 <*> Procedure Esophagogastroduodenoscopy 01/06/19 07:09:49 Heddler Tier: BICKNEA Modifier: BICKNEA 3 <+> Time Out 3 <*> Procedure Esophagogastroduodenoscopy <+> 5 Case Attendee <+> 5 Role Performed <+> 5 Time In <+> 5 Procedure 01/06/19 07:04:20 Heddler Tier: BICKNEA Modifier: BICKNEA <+> 1 Procedure 2 <*> Procedure Esophagogastroduodenoscopy 3 <*> Procedure Esophagogastroduodenoscopy 4 <*> Procedure Esophagogastroduodenoscopy 01/06/19 07:04:08 Heddler Tier: BICKNEA Modifier: BICKNEA <+> 4 Case Attendee <+> 4 Role Performed <+> 4 Time In <+> 4 Procedure [facility] - Case Times Entry 1 Patient In Room Time 01/06/19 07:02:00 Out Room Time 01/06/19 07:45:00 Anesthesia Start Time 01/06/19 07:04:00 Stop Time 01/06/19 07:26:00 Anesthesia Ready 01/06/19 07:15:00 Surgery / Procedure Times Start Time 01/06/19 07:17:00 Stop Time 01/06/19 07:26:00 Last Modified By: Sharmila Chavez, SHANELL 01/06/19 07:46:00 [facility] - Case Times Audit 01/06/19 07:46:00 Heddler Tier: BICKNEA Modifier: BICKNEA <+> 1 Out Room Time 01/06/19 07:45:18 Heddler Tier: BICKNEA Modifier: BICKNEA <+> 1 Stop Time <+> 1 Stop Time 01/06/19 07:17:31 Heddler Tier: BICKNEA Modifier: BICKNEA <+> 1 Start Time 01/06/19 07:17:07 Heddler Tier: BICKNEA Modifier: BICKNEA <+> 1 Anesthesia Ready 01/06/19 07:04:12 Heddler Tier: BICKNEA Modifier: BICKNEA 1 <*> Start Time 01/06/19 07:02:00 [facility] - Delays Entry 1 Delay Reason Other Duration 0 Minute(s) Comment NO DELAY Last Modified By: Sharmila Chavez, SHANELL 01/06/19 07:03:28 [facility] - Departure from OR Entry 1 Integumentary Assessment Integumentary WDL Assessment WDL Transfer/Handoff Transfer to PACU Phase I Post-op Transport Stretcher/Gurney Via Patient Transport Sharmila Chavez RN Accompanied by Last Modified By: Sharmila Chavez RN 01/06/19 07:03:39 [facility] [place] Endo - Endoscopy Details Entry 1 Abdomen Procedure Soft, Non-Tender Assessment Procedure Abdomen 01/06/19 07:04:00 Assessment D/T Radio Frequency Ablation Last Modified By: Sharmila Chavez RN 01/06/19 07:04:17 [facility] [place] Endo - Fire Risk Assessment Entry 1 Fire Info Surgical Site or 1- Yes Incision Above the Xyphoid Open O2 Source 1- Yes (Mask or Cannula) Available Ignition 1- Yes (ESU, Laser, Light Source) Fire Risk 3 Assessment Score Fire Score Fire Risk Yes Assessment Complete Fire Risk Sharmila Chavez RN Assessment Verified By Fire Risk 01/06/19 07:04:00 Assessment Verified Date/Time Fire Risk High Risk Protocol Yes Implemented Standard Fire Yes Safety Precautions Followed Last Modified By: Sharmila Chavez RN 01/06/19 07:04:24 [facility] [place] Endo - General Case Sales And Events Coordinator 1 Case Information OR Out of Department [facility] [place] Case Level 1 Room Verified Yes Wound Class II - Clean-Contaminated Specialty SN Gastroenterology Anesthesia Type MAC ASA Class 3E Diagnosis Preop Diagnosis gi bleed Postop Same As Preop No Postop Diagnosis zurdo diana tear, esophagitis Last Modified By: Sharmila Chavez RN 01/06/19 07:22:25 [facility] [place] Endo - General Case Data Audit 01/06/19 07:22:25 Heddler Tier: BICKNEA Modifier: BICKNEA <+> 1 Postop Diagnosis 01/06/19 07:17:50 Heddler Tier: BICKNEA Modifier: BICKNEA 1 <*> ASA Class 4 [facility] [place] Endo - Implant Log Entry 1 Type Implant (Synthetic) Implant Log Implant Type Other Tissue Implant Type Other Implant CLIP II RESOLUTION Identification [id number] Description Implant Quantity 3 Implant [place] Sci:Interv Identification Cardiology Cargo Worker Name: Implant [id number] Identification Catalog Number Implant Has an Yes Expiration Date Implant Expiration 09/16/21 Date Tissue Implant Last Modified By: Sharmila Chavez RN 01/06/19 07:26:02 [facility] [place] Endo - Implant Log Audit 01/06/19 07:26:02 Heddler Tier: BICKNEA Modifier: BICKNEA 1 <*> Implant Identification Description CLIP II RESOLUTION [id number] <*> Implant Quantity 2 [facility] - Intraoperative Assessment Entry 1 Valid History / Yes Physical in Chart Preoperative Yes Checklist Reviewed/Evaluated Allergies Reviewed Yes Patient is Latex No Sensitive Level of WDL Consciousness (WDL = Alert, Oriented to Person, Place, and Time) Present Upon IVs, ECG monitored Arrival to OR Last Modified By: Sharmila Chavez RN 01/06/19 07:04:59 [facility] - Intraoperative Equipment Entry 1 Type Scope Equipment Intraop Monitoring Electrocardiogram Three lead placement (ECG) Electrode Placement Blood Pressure Arm, left upper Location Pulse Oximeter Hand, right Probe Site Antiembolic Devices Scopes Flexible Endoscopes Gastroscope Used Scope Serial 2470 Number/Identificatio n Number Photo/Video Documentation Photo Yes Video No Last Modified By: Sharmila Chavez RN 01/06/19 07:05:12 [facility] - Patient Positioning Entry 1 Procedure Esophagogastroduodenosco py Body Position Lateral, right side up Left Arm Position Resting at side Right Arm Position Resting at side Left Leg Position Other Right Leg Position Other Position Comments Right leg over left leg uncrossed Feet Uncrossed Yes Pressure Points Yes Checked Positioned By Sharmila Chavez RN, MARLENE BARON, MONICA Position Verified Positioning Yes Verified by Anesthesia Positioning Yes Verified by Surgeon Last Modified By: Sharmila Chavez RN 01/06/19 07:05:24 [facility] - Sign In Entry 1 Patient, Site, Yes Procedure Identified Surgical Consent Yes Confirmed Relevant Surgical Yes Documents Available Surgical Site N/A Marked by person performing procedure Allergies No Airway Hypothermia Risk No Warming Measures No Taken Last Modified By: Sharmila Chavez RN 01/06/19 07:05:35 [facility] - Sign Out Entry 1 RN Confirmation Surgical Yes Procedure(s) Identified Instrument, Sponge N/A and Sharps Counts Correct/Documented Equipment Problems N/A Documented Specimen Labeled N/A Correctly Urinary Catheter N/A Documented in IView Safety Checklist Yes Elements Complete? RN Sign Out Sharmila Chavez, SHANELL Signature RN Sign Out 01/06/19 07:46:00 Signature Date/Time Plan of Care Outcome - [...] related to extraneous objects Last Modified By: Sharmila Chavez RN 01/06/19 07:46:34 [facility] [place] Endo - Surgical Procedures Entry 1 Procedure Esophagogastroduodenosco py Primary Procedure Yes Primary Surgeon RAZIA LANTIGUA MD-GAE Start 01/06/19 07:17:00 Stop 01/06/19 07:26:00 Anesthesia Type MAC Specialty SN Gastroenterology Wound Class II - Clean-Contaminated Last Modified By: Sharmila Chavez RN 01/06/19 07:46:07 [facility] - Surgical Procedures Audit 01/06/19 07:46:07 Heddler Tier: BICKNEA Modifier: BICKNEA <+> 1 Stop 01/06/19 07:17:41 Heddler Tier: BICKNEA Modifier: BICKNEA <+> 1 Start 01/06/19 07:05:57 Heddler Tier: BICKNEA Modifier: BICKNEA 1 <*> Procedure Esophagogastroduodenoscopy 1 <+> Specialty [facility] [place] Endo - Time Out Entry 1 Procedure to be Esophagogastroduodenosco Performed py Time Out Time Out Pause Time 01/06/19 07:11:00 All activity Yes suspended (unless life threatening [...] Events Surgeon None expected Last Modified By: Sharmila Chavez RN 01/06/19 07:12:05 Case Comments <None> Finalized By: Sharmila Chavez, RN Document Signatures Signed By: Sharmila Chavez RN 01/06/19 07:46 Electronically signed by [facility] Conversion Deployment Manager Cerner at 08/08/2022 11:17 PM CDT documented in this encounter Plan of Treatment Not on file documented as of this encounter Visit Diagnoses Not on filedocumented in this encounter
--- OUTSIDE RECORDS SUMMARY | 2024-10-15 09:11 | XMS_ITS | Encounter Summary ---
Author Organization [employer] Address [address] [place] [address] Care Team Providers Care Black Leather Trimmer Name Role Phone Unavailable Primary Care Provider Unavailabl e Encounter Details Date Type Department Care Team (Late st Contact Info) Description 01/05/2019 Transcribed Document [facility] Family Medicine [address] [place] [address] ProviderMary Kate MD [address] [place] [address] Social History Tobacco Use Types Packs/Day Years Used Date Smoking Tobacco: Never Assessed Sex and Gender Information Value Date Recorded Sex Assigned at Not on file Legal Sex Male 5:22 PM CDT Gender Identity Not on file Sexual Orientation Not on file documented as of this encounter Miscellaneous Notes * Cerner Conversion Note - Historical ProviderMD - 01/05/2019 4:00 AM CDT Height and Weight, Routine Entered On: 01/05/2019 11:48 EDT Performed On: 01/05/2019 8:00 EDT by Addie Dozier RN Height and Weight, Routine Routine Weight Source : Bed scale Routine Weight Entry Format : Metric Routine Weight, Kilograms : 74.9 kg(Converted to: 165 lb 2 oz) Routine Weight Calculation : 74.9 kg Height Source : Chart Height Entry Format : [place] Height, Feet : 5 ft Height, Inches : 7 Inch Clinical Height : 170.18 cm Body Surface Area (BSA), Routine : 1.86 m2 Body Mass Index (BMI), Routine : 25.86 kg/m2 Addie Dozier RN - 01/05/2019 11:48 EDT documented in this encounter Plan of Treatment Not on file documented as of this encounter Visit Diagnoses Not on filedocumented in this encounter
--- OUTSIDE RECORDS SUMMARY | 2024-10-15 09:11 | XMS_ITS | Encounter Summary ---
Author Organization [employer] Address [address] [place] [address] Care Team Providers Care Engraver Pantograph Name Role Phone Unavailable Primary Care Provider Unavailabl e Encounter Details Date Type Department Care Team (Late st Contact Info) Description 01/08/2019 Transcribed Document [facility] [place] [facility] [address] [place] [address] ProviderMary Kate MD [address] [place], [place] [id number] Social History Tobacco Use Types Packs/Day Years Used Date Smoking Tobacco: Never Assessed Sex and Gender Information Value Date Recorded Sex Assigned at Not on file Legal Sex Male 5:22 PM CDT Gender Identity Not on file Sexual Orientation Not on file documented as of this encounter Miscellaneous Notes * Cerner Conversion Note - Mary Kate ProviderMD - 01/08/2019 3:20 PM CDT [address] [address] [place] :1965 Visit Time:01/04/2019 Your Visit Summary Your Care Team Admitting Physician - ASHLEY MAGANA MD-INT Attending Physician - ASHLEY MAGANA MD-CIARA Primary Care Physician - JUAN MIGUEL OROZCO RN Referring Physician - TYE, SELF REFERRED Your Diagnosis Alcohol dependence with withdrawal, uncomplicated, Alcohol dependence with withdrawal, uncomplicated Alcohol withdrawal, Alcohol withdrawal These Are Your Goals I need to feel better to be out of here. Discharge Vitals Temperature 36.8 ??C Heart Rate (Monitored) 106 Respiratory Rate 18 Blood Pressure 121/81 What to do next Instructions From Your Care Team [facility] [place] [phone] Discharge Activity: Discharge Activity: Activity as tolerated Diet: Discharge Diet: GI Soft/Low Residuel/Low Fiber Follow-Up Appointments Follow Up with JUAN MIGUEL MOLINA NP-FAM When 01/14/2019 11:00 AM EDT Comments Appointment has been made Where: [address] [place] [phone] Medications What How Much When Instructions Next Dose levETIRAcetam (Keppra 500 mg oral tablet) 1 Tablet(s) Oral Two Times A Day Printed Prescription [facility] 01/08/2019 pantoprazole (pantoprazole 40 mg oral granule, enteric coated) 1 Each Oral Two Times A Day Duration: 30 Day(s) Printed Prescription 01/08/2019 thiamine (thiamine 100 mg oral tablet) 1 Tablet(s) Oral Every Day Duration: 30 Day(s) Printed Prescription tomorrow 01/09/2019 folic acid (folic acid 1 mg oral tablet) 1 Tablet(s) Oral Every Day Printed Prescription tomorrow 01/09/2019 carvedilol (carvedilol 6.25 mg oral tablet) 1 Tablet(s) Oral Two Times A Day 01/08/2019 hydroCHLOROthiazide (hydroCHLOROthiazide 25 mg oral tablet) 1 Tablet(s) Oral Every Day tomorrow 01/09/2019 lisinopril (lisinopril 10 mg oral tablet) 1 Tablet(s) Oral Every Day tomorrow 01/09/2019 multivitamin (Multiple Vitamins oral capsule) 1 Capsule(s) Oral Every Day Duration: 30 Day(s) Printed Prescription tomorrow 01/09/2019 simvastatin (simvastatin 20 mg oral tablet) 1 Tablet(s) Oral At Bedtime 01/08/2019 venlafaxine (venlafaxine 37.5 mg oral tablet) 1 Tablet(s) Oral Two Times A Day 01/08/[address] [facility]/pharmacy #[id number]: [address] [place], [place] [id number] [phone] Take your medications faithfully. Do NOT skip medication. Do NOT stop taking medications without the direction of a physician. Carry a list of your medications with you at all times, and take this medication list with you to your first follow up visit. Report any side effects. Avoid herbal remedies unless discussed with your physician. As part of your treatment plan, your physician may have prescribed a limited course of a controlled substance. This medication may be given to help people with moderate or severe pain or for other medical conditions, but there are risks involved with treatment. Common side effects may include nausea, constipation, drowsiness, sweating, itching, dry mouth, and rash. More serious side effects may include cognitive and motor impairment, like problems with thinking, concentrating, alertness, and movement (e.g. slowed reflexes), and driving and operating heavy machinery can be dangerous. It is important for you to talk to your physician if you have these side effects or questions. These controlled substances can produce physical dependence and be habit-forming if taken for an extended period of time, which means that the body has gotten used to them and may experience withdrawal symptoms if they are abruptly stopped. Withdrawal symptoms can include runny nose, sweating, goose bumps, diarrhea, abdominal cramping, rapid heartbeat, difficulty sleeping, and nervousness. Please dispose of unused and medications per your retail pharmacy guidance. Allergies No Known Allergies No Known Medication Allergies Immunizations This Visit No Immunizations Found Education Materials High-Protein and High-Calorie Diet Eating high-protein and high-calorie foods can help you to gain weight, heal after an injury, and recover after an illness or surgery. What is my plan? The specific amount of daily protein and calories you need depends on: ??? Your body weight. ??? The reason this diet is recommended for you. Generally, a high-protein, high-calorie diet involves: ??? Eating 250???500 extra calories each day. ??? Making sure that 10???35% of your daily calories come from protein. Talk to your health care provider about how much protein and how many calories you need each day. Follow the diet as directed by your health care provider. What do I need to know about this diet? Ask your health care provider if you should take a nutritional supplement. ??? Try to eat six small meals each day instead of three large meals. ??? Eat a balanced diet, including one food that is high in protein at each meal. ??? Keep nutritious snacks handy, such as nuts, trail mixes, dried fruit, and yogurt. ??? If you have kidney disease or diabetes, eating too much protein may put extra stress on your kidneys. Talk to your health care provider if you have either of those conditions. What are some high-protein foods? Grains Quinoa. Bulgur wheat. Vegetables Soybeans. Peas. Meats and Other Protein Sources Beef, pork, and poultry. Fish and seafood. Eggs. Tofu. Textured vegetable protein (TVP). Peanut butter. Nuts and seeds. Dried beans. Protein powders. Dairy Whole milk. Whole-milk yogurt. Powdered milk. Cheese. Cottage Cheese. Eggnog. Beverages High-protein supplement drinks. Soy milk. Other Protein bars. The items listed above may not be a complete list of recommended foods or beverages. Contact your dietitian for more options. What are some high-calorie foods? Grains Pasta. Quick breads. Muffins. Pancakes. Wbcoq-xw-kgd cereal. Vegetables Vegetables cooked in oil or butter. Fried potatoes. Fruits Dried fruit. Fruit leather. Canned fruit in syrup. Fruit juice. Avocados. Meats and Other Protein Sources Peanut butter. Nuts and seeds. Dairy Heavy cream. Whipped cream. Cream cheese. Sour cream. Ice cream. Custard. Pudding. Beverages Meal-replacement beverages. Nutrition shakes. Fruit juice. Sugar-sweetened soft drinks. Condiments Salad dressing. Mayonnaise. Golden sauce. Fruit preserves or jelly. Honey. Syrup. Sweets/Desserts Cake. Cookies. Pie. Pastries. Candy bars. Chocolate. Fats and Oils Butter or margarine. Oil. Gravy. Other Meal-replacement bars. The items listed above may not be a complete list of recommended foods or beverages. Contact your dietitian for more options. What are some tips for including high-protein and high-calorie foods in my diet? Add whole milk, jlcc-ezu-wfsl, or heavy cream to cereal, pudding, soup, or hot cocoa. ??? Add whole milk to instant breakfast drinks. ??? Add peanut butter to oatmeal or smoothies. ??? Add powdered milk to baked goods, smoothies, or milkshakes. ??? Add powdered milk, cream, or butter to mashed potatoes. ??? Add cheese to cooked vegetables. ??? Make whole-milk yogurt parfaits. Top them with granola, fruit, or nuts. ??? Add cottage cheese to your fruit. ??? Add avocados, cheese, or both to sandwiches or salads. ??? Add meat, poultry, or seafood to rice, pasta, casseroles, salads, and soups. ??? Use mayonnaise when making egg salad, chicken salad, or tuna salad. ??? Use peanut butter as a topping for pretzels, celery, or crackers. ??? Add beans to casseroles, dips, and spreads. ??? Add pureed beans to sauces and soups. ??? Replace calorie-free drinks with calorie-containing drinks, such as milk and fruit juice. This information is not intended to replace advice given to you by your health care provider. Make sure you discuss any questions you have with your health care provider. Document Released: 04/08/2006 Document Revised: 09/13/2016 Document Reviewed: 09/21/2014 [employer] Interactive Patient Education ?? 2018 [employer]. Recovering From Addiction Addiction is a complex disease of the brain. It causes an uncontrollable (compulsive) need for a substance. You can be addicted to substances including alcohol, tobacco, illegal drugs, or prescription medicines such as painkillers. Addiction can change the way that your brain works. It affects memory, behavior, and how you make decisions. Without treatment, addiction can get worse. However, with treatment and lifestyle changes, you can recover from addiction. What types of treatment are available? The treatment program that is right for you will depend on many factors, including the type of addiction that you have. Treatment programs can be outpatient or inpatient. In an outpatient program, you live at home and go to work or school, but you also go to a clinic for treatment. With an inpatient program, you live and sleep at the program facility during treatment. Other treatment options include: ??? Medicine. ? Some addictions may be treated with prescription medicines. ? You may also need medicine to treat other mental health conditions such as anxiety or depression. ??? Counseling and behavior therapy. Therapy can help you learn new ways to respond to situations that are stressful or that tempt you to use the addictive substance. ??? Support groups. These include therapy groups and 12-step programs. These can help individuals and families during treatment and recovery. Examples of 12-step programs are Alcoholics Anonymous (AA) and Narcotics Anonymous (NA). How to manage lifestyle changes Managing stress Too much stress can lead to returning to the addiction (having a relapse). You need to find effective ways to manage your stress. Some techniques to cope with stress include: ??? Meditation, yoga, or deep breathing. ??? Exercise. Create an exercise routine that you enjoy and that allows you to work off some energy. ??? Creating or listening to music. ??? Muscle relaxation exercises. Medicines Some medicines may make you feel calmer and help you have fewer cravings. If your health care provider prescribes medicines, make sure you: ??? Avoid using alcohol and other substances that may prevent your medicines from working properly (may interact). ??? Talk with your pharmacist or health care provider about all medicines that you take, the possible problems (side effects) that they can cause, and which medicines are safe to take together. ??? Make it your goal to take part in all treatment decisions (shared decision-making). Ask about possible side effects of medicines that your health care provider recommends, and tell him or her how you feel about having those side effects. It is best if shared decision-making with your health care provider is part of your total treatment plan. Relationships Supportive relationships are very important in your recovery. When you are recovering from drug addiction, it will be important to avoid being around people who use drugs. For many people, this means developing new and different relationships. Some ways to do this include: ??? Developing trusting relationships with the people you meet in treatment or in AA or NA. These people share your desire to stop using substances (get sober) and to stay sober. ??? Getting a sponsor as a primary support person if you are attending a 12-step program. ??? Building relationships with people you meet through activities such as hobbies, volunteering, or exercising. How to recognize changes in your condition When recovering from an addiction, it is very common for a person to relapse and start using the substance again. Contact your sponsor, therapist, or health care provider to seek additional help if you experience the following: ??? Anxiety. ??? Excessive anger. ??? Isolating yourself from others. ??? Trouble sleeping. ??? Feeling depressed. ??? Loss of appetite. ??? Fantasies about using the substance. Where to find support Talking to others ??? You may be advised to see a family therapist along with members of your family. Family therapy can help you and your family understand what led you to addiction. Talk with your family about this approach. ??? Let your family members or friends know that they can help you through treatment. Support from loved ones will be important to help you maintain positive changes. Financial resources Be sure to check with your insurance carrier to find out what treatment options are covered by your plan. You may also be able to find financial assistance through dwd-ucc-swdaox organizations or with local government-based resources. If you are taking medicines, you may be able to get the generic form, which may be less expensive than brand-name medicine. Some makers of prescription medicines also offer help to patients who cannot afford the medicines that they need. Follow these instructions at home: ??? Take keub-ayd-dbwrvgh and prescription medicines only as told by your health care provider. ??? Stay in treatment until you complete the program. Take an active role in your treatment and your physical and emotional self-care. Develop a follow-up plan. ??? Keep all follow-up visits as told by your health care provider and counselor. This is important. ??? Eat a healthy diet, exercise regularly, and get enough sleep. Questions to ask your health care provider ??? If you are taking medicines: ? How long do I need to take medicine? ? Are there any long-term side effects of my medicine? ? Are there other options instead of taking medicine? Would I benefit from therapy? How often should I follow up with a health care provider? Contact a health care provider if: ??? You feel like you might relapse. ??? You have stopped taking your medicine. Get help right away if: ??? You have serious thoughts about hurting yourself or others. If you ever feel like you may hurt yourself or others, or have thoughts about taking your own life, get help right away. You can go to your nearest emergency department or call: ??? Your local emergency services (911 in the [place] ??? A suicide crisis helpline, such as the National Suicide Prevention Lifeline at . This is open 24 hours a day. Summary ??? With treatment and lifestyle changes, it is possible to recover from an addiction to substances like alcohol, tobacco, illegal drugs, or prescription medicines such as painkillers. ??? Find effective ways to manage your stress to avoid a relapse. Some techniques to cope with stress include exercise, meditation, yoga, and deep breathing. ??? Let loved ones know that their support is important to help you recover. ??? If you have any signs that you may relapse, contact your 12-step sponsor, therapist, or health care provider to seek additional help. This information is not intended to replace advice given to you by your health care provider. Make sure you discuss any questions you have with your health care provider. Document Released: 08/23/2017 Document Revised: 08/23/2017 Document Reviewed: 08/23/2017 [employer] Interactive Patient Education ?? 2019 [employer]. Alcohol Use Disorder Alcohol use disorder is when your drinking disrupts your daily life. When you have this condition, you drink too much alcohol and you cannot control your drinking. Alcohol use disorder can cause serious problems with your physical health. It can affect your brain, heart, liver, pancreas, immune system, stomach, and intestines. Alcohol use disorder can increase your risk for certain cancers and cause problems with your mental health, such as depression, anxiety, psychosis, delirium, and dementia. People with this disorder risk hurting themselves and others. What are the causes? This condition is caused by drinking too much alcohol over time. It is not caused by drinking too much alcohol only one or two times. Some people with this condition drink alcohol to cope with or escape from negative life events. Others drink to relieve pain or symptoms of mental illness. What increases the risk? You are more likely to develop this condition if: ??? You have a family history of alcohol use disorder. ??? Your culture encourages drinking to the point of intoxication, or makes alcohol easy to get. ??? You had a mood or conduct disorder in childhood. ??? You have been a victim of abuse. ??? You are an adolescent and: ? You have poor grades or difficulties in school. ? Your caregivers do not talk to you about saying no to alcohol, or supervise your activities. ? You are impulsive or you have trouble with self-control. What are the signs or symptoms? Symptoms of this condition include: ??? Drinking more than you want to. ??? Drinking for longer than you want to. ??? Trying several times to drink less or to control your drinking. ??? Spending a lot of time getting alcohol, drinking, or recovering from drinking. ??? Craving alcohol. ??? Having problems at work, at school, or at home due to drinking. ??? Having problems in relationships due to drinking. ??? Drinking when it is dangerous to drink, such as before driving a car. ??? Continuing to drink even though you know you might have a physical or mental problem related to drinking. ??? Needing more and more alcohol to get the same effect you want from the alcohol (building up tolerance). ??? Having symptoms of withdrawal when you stop drinking. Symptoms of withdrawal include: ? Fatigue. ? Nightmares. ? Trouble sleeping. ? Depression. ? Anxiety. ? Fever. ? Seizures. ? Severe confusion. ? Feeling or seeing things that are not there (hallucinations). ? Tremors. ? Rapid heart rate. ? Rapid breathing. ? High blood pressure. ??? Drinking to avoid symptoms of withdrawal. How is this diagnosed? This condition is diagnosed with an assessment. Your health care provider may start the assessment by asking three or four questions about your drinking. Your health care provider may perform a physical exam or do lab tests to see if you have physical problems resulting from alcohol use. She or he may refer you to a mental health professional for evaluation. How is this treated? Some people with alcohol use disorder are able to reduce their alcohol use to low-risk levels. Others need to completely quit drinking alcohol. When necessary, mental health professionals with specialized training in substance use treatment can help. Your health care provider can help you decide how severe your alcohol use disorder is and what type of treatment you need. The following forms of treatment are available: ??? Detoxification. Detoxification involves quitting drinking and using prescription medicines within the first week to help lessen withdrawal symptoms. This treatment is important for people who have had withdrawal symptoms before and for heavy drinkers who are likely to have withdrawal symptoms. Alcohol withdrawal can be dangerous, and in severe cases, it can cause . Detoxification may be provided in a home, community, or primary care setting, or in a hospital or substance use treatment facility. ??? Counseling. This treatment is also called talk therapy. It is provided by substance use treatment counselors. A counselor can address the reasons you use alcohol and suggest ways to keep you from drinking again or to prevent problem drinking. The goals of talk therapy are to: ? Find healthy activities and ways for you to cope with stress. ? Identify and avoid the things that trigger your alcohol use. ? Help you learn how to handle cravings. ??? Medicines. Medicines can help treat alcohol use disorder by: ? Decreasing alcohol cravings. ? Decreasing the positive feeling you have when you drink alcohol. ? Causing an uncomfortable physical reaction when you drink alcohol (aversion therapy). ??? Support groups. Support groups are led by people who have quit drinking. They provide emotional support, advice, and guidance. These forms of treatment are often combined. Some people with this condition benefit from a combination of treatments provided by specialized substance use treatment centers. Follow these instructions at home: ??? Take ubjm-cgi-fyhomyr and prescription medicines only as told by your health care provider. ??? Check with your health care provider before starting any new medicines. ??? Ask friends and family members not to offer you alcohol. ??? Avoid situations where alcohol is served, including gatherings where others are drinking alcohol. ??? Create a plan for what to do when you are tempted to use alcohol. ??? Find hobbies or activities that you enjoy that do not include alcohol. ??? Keep all follow-up visits as told by your health care provider. This is important. How is this prevented? If you drink, limit alcohol intake to no more than 1 drink a day for non women and 2 drinks a day for men. One drink equals 12 oz of beer, 5 oz of wine, or 1?? oz of hard liquor. ??? If you have a mental health condition, get treatment and support. ??? Do not give alcohol to adolescents. ??? If you are an adolescent: ? Do not drink alcohol. ? Do not be afraid to say no if someone offers you alcohol. Speak up about why you do not want to drink. You can be a positive role model for your friends and set a good example for those around you by not drinking alcohol. ? If your friends drink, spend time with others who do not drink alcohol. Make new friends who do not use alcohol. ? Find healthy ways to manage stress and emotions, such as meditation or deep breathing, exercise, spending time in nature, listening to music, or talking with a trusted friend or family member. Contact a health care provider if: ??? You are not able to take your medicines as told. ??? Your symptoms get worse. ??? You return to drinking alcohol (relapse) and your symptoms get worse. Get help right away if: ??? You have thoughts about hurting yourself or others. If you ever feel like you may hurt yourself or others, or have thoughts about taking your own life, get help right away. You can go to your nearest emergency department or call: ??? Your local emergency services (911 in the [place] ??? A suicide crisis helpline, such as the National Suicide Prevention Lifeline at . This is open 24 hours a day. Summary ??? Alcohol use disorder is when your drinking disrupts your daily life. When you have this condition, you drink too much alcohol and you cannot control your drinking. ??? Treatment may include detoxification, counseling, medicine, and support groups. ??? Ask friends and family members not to offer you alcohol. Avoid situations where alcohol is served. ??? Get help right away if you have thoughts about hurting yourself or others. This information is not intended to replace advice given to you by your health care provider. Make sure you discuss any questions you have with your health care provider. Document Released: 05/16/2005 Document Revised: 01/03/2017 Document Reviewed: 01/03/2017 [employer] Interactive Patient Education ?? 2019 [employer] Alcohol Withdrawal Syndrome Alcohol withdrawal syndrome is a group of symptoms that can develop when a person who drinks heavily and regularly stops drinking or drinks less. Alcohol withdrawal syndrome can be mild or severe, and it may even be life-threatening. Alcohol withdrawal syndrome usually affects people who have alcohol use disorder, which may also be called alcoholism. Alcohol use disorder is when a person is unable to control his or her alcohol use, and drinking too much or too often causes problems at home, at work, or in relationships. What are the causes? Drinking heavily and drinking on a regular basis cause changes in brain chemistry. Over time, the body becomes dependent on alcohol. When alcohol use stops, the chemistry system in the brain becomes unbalanced and causes the symptoms of alcohol withdrawal. What increases the risk? Alcohol withdrawal syndrome is more likely to occur in people who drink more than the recommended limit of alcohol (2 drinks a day for men or 1 drink a day for non- women). It is also more likely to affect heavy drinkers who have been using alcohol for long periods of time. The more a person drinks and the longer he or she drinks, the greater the risk of alcohol withdrawal syndrome. Severe withdrawal is more likely to develop in someone who: ??? Had severe alcohol withdrawal in the past. ??? Had a seizure during a previous episode of alcohol withdrawal. ??? Is elderly. ??? Uses other drugs. ??? Has a long-term (chronic) medical problem, such as heart, lung, or liver disease. ??? Has depression. ??? Does not get enough nutrients from his or her diet (malnutrition). What are the signs or symptoms? Symptoms of this condition can be mild to moderate, or they can be severe. Symptoms may develop a few hours (or up to a day) after a person changes his or her drinking patterns. During the 48 hours after he or she has stopped drinking, the following symptoms may go away or get better: ??? Uncontrollable shaking (tremor). ??? Sweating. ??? Headache. ??? Anxiety. ??? Inability to relax (agitation). ??? Trouble sleeping (insomnia). ??? Irregular heartbeats (palpitations). ??? Alcohol cravings. ??? Seizure. The following symptoms may get worse 24???48 hours after a person has decreased or stopped alcohol use, and they may gradually improve over a period of days or weeks: ??? Nausea and vomiting. ??? Fatigue. ??? Sensitivity to light and sounds. ??? Confusion and inability to think clearly. ??? Loss of appetite. ??? Mood swings, irritability, depression, and anxiety. ??? Insomnia and nightmares. The following symptoms are severe and life-threatening. When these symptoms occur together, they are called delirium tremens (DTs): ??? High blood pressure. ??? Increased heart rate. ??? Trouble breathing. ??? Seizures. These may go away along with other symptoms, or they may persist. ??? Seeing, hearing, feeling, smelling, or tasting things that are not there (hallucinations). If you experience hallucinations, they usually begin 12???24 hours after a change in drinking patterns. Delirium tremens requires immediate hospitalization. How is this diagnosed? This condition may be diagnosed based on: ??? Your symptoms and medical history. ??? Your history of alcohol use. Your health care provider may ask questions about your drinking behavior. It is important to be honest when you answer these questions. ??? A psychological assessment. ??? A physical exam. ??? Blood tests or urine tests to measure blood alcohol level and to rule out other causes of symptoms. ??? MRI or CT scan. This may be done if you seem to have abnormal thinking or behaviors (altered mental status). Diagnosis can be difficult. People going through withdrawal often avoid seeking medical care and are not thinking clearly. Friends and family members play an important role in recognizing symptoms and encouraging loved ones to get treatment. How is this treated? Most people with symptoms of withdrawal can be treated outside of a hospital setting (outpatient treatment), with close monitoring such as daily check-ins with a health care provider and counseling. You may need treatment at a hospital or treatment center (inpatient treatment) if: ??? You have a history of delirium tremens or seizures. ??? You have severe symptoms. ??? You are addicted to other drugs. ??? You cannot swallow medicine. ??? You have a serious medical condition such as heart failure. ??? You experienced withdrawal in the past but then you continued drinking alcohol. ??? You are not likely to commit to an outpatient treatment schedule. Treatment may involve: ??? Monitoring your blood pressure, pulse, and breathing. ??? IV fluids to keep you hydrated. ??? Medicines to reduce withdrawal symptoms and discomfort (benzodiazepines). ??? Medicine to reduce anxiety. ??? Medicine to prevent or control seizures. ??? Multivitamins and B vitamins. ??? Having a health care provider check on you daily. It is important to get treatment for alcohol withdrawal early. Getting treatment early can: ??? Speed up your recovery from withdrawal symptoms. ??? Make you more successful with long-term stoppage of alcohol use (sobriety). If you need help to stop drinking, your health care provider may recommend a long-term treatment plan that includes: ??? Medicines to help treat alcohol use disorder. ??? Substance abuse counseling. ??? Support groups. Follow these instructions at home: ??? Take yjci-guj-fiuyryg and prescription medicines (including vitamin supplements) only as told by your health care provider. ??? Do not drink alcohol. ??? Do not drive until your health care provider approves. ??? Have someone you trust stay with you or be available if you need help with your symptoms or with not drinking. ??? Drink enough fluid to keep your urine pale yellow. ??? Consider joining an alcohol support group or treatment program. These can provide emotional support, advice, and guidance. ??? Keep all follow-up visits as told by your health care provider. This is important. Contact a health care provider if: ??? Your symptoms get worse instead of better. ??? You cannot eat or drink without vomiting. ??? You are struggling with not drinking alcohol. ??? You cannot stop drinking alcohol. Get help right away if: ??? You have an irregular heartbeat. ??? You have chest pain. ??? You have trouble breathing. ??? You have a seizure for the first time. ??? You hallucinate. ??? You become very confused. Summary ??? Alcohol withdrawal is a group of symptoms that can develop when a person who drinks heavily and regularly stops drinking or drinks less. ??? Symptoms of this condition can be mild to moderate, or they can be severe. ??? Treatment may include hospitalization, medicine, and counseling. This information is not intended to replace advice given to you by your health care provider. Make sure you discuss any questions you have with your health care provider. Document Released: 01/16/2006 Document Revised: 12/13/2017 Document Reviewed: 12/13/2017 [employer] Interactive Patient Education ?? 2019 [employer] Alcohol Abuse and Nutrition Alcohol abuse is any pattern of alcohol consumption that harms your health, relationships, or work. Alcohol abuse can cause poor nutrition (malnutrition or malnourishment) and a lack of nutrients (nutrient deficiencies), which can lead to more complications. Alcohol abuse brings malnutrition and nutrient deficiencies in two ways: ??? It causes your liver to work abnormally. This affects how your body divides (breaks down) and absorbs nutrients from food. ??? It causes you to eat poorly. Many people who abuse alcohol do not eat enough carbohydrates, protein, fat, vitamins, and minerals. Nutrients that are commonly lacking (deficient) in people who abuse alcohol include: ??? Vitamins. ? Vitamin A. This is needed for your vision, metabolism, and ability to fight off infections (immunity). ? B vitamins. These include folate, thiamine, and niacin. These are needed for new cell growth. ? Vitamin C. This plays an important role in wound healing, immunity, and helping your body to absorb iron. ? Vitamin D. This is necessary for your body to absorb and use calcium. It is produced by your liver, but you can also get it from food and from sun exposure. ??? Minerals. ? Calcium. This is needed for healthy bones as well as heart and blood vessel (cardiovascular) function. ? Iron. This is important for blood, muscle, and nervous system functioning. ? Magnesium. This plays an important role in muscle and nerve function, and it helps to control blood sugar and blood pressure. ? Zinc. This is important for the normal functioning of your nervous system and digestive system (gastrointestinal tract). If you think that you have an alcohol dependency problem, or if it is hard to stop drinking because you feel sick or different when you do not use alcohol, talk with your health care provider or another health professional about where to get help. Nutrition is an essential factor in therapy for alcohol abuse. Your health care provider or diet and crop nutrition scientist (dietitian) will work with you to design a plan that can help to restore nutrients to your body and prevent the risk of complications. What is my plan? Your dietitian may develop a specific eating plan that is based on your condition and any other problems that you have. An eating plan will commonly include: ??? A balanced diet. ? Grains: 6???8 oz (170???227 g) a day. Examples of 1 oz of whole grains include 1 cup of whole-wheat cereal, ?? cup of brown rice, or 1 slice of whole-wheat bread. ? Vegetables: 2???3 cups a day. Examples of 1 cup of vegetables include 2 medium carrots, 1 large tomato, or 2 stalks of celery. ? Fruits: 1???2 cups a day. Examples of 1 cup of fruit include 1 large banana, 1 small apple, 8 large strawberries, or 1 large orange. ? Meat and other protein: 5???6 oz (142???170 g) a day. ? A cut of meat or fish that is the size of a deck of cards is about 3???4 oz. ? Foods that provide 1 oz of protein include 1 egg, ?? cup of nuts or seeds, or 1 tablespoon (16 g) of peanut butter. ? Dairy: 2???3 cups a day. Examples of 1 cup of dairy include 8 oz (230 mL) of milk, 8 oz (230 g) of yogurt, or 1?? oz (44 g) of natural cheese. ??? Vitamin and mineral supplements. What are tips for following this plan? Eat frequent meals and snacks. Try to eat 5???6 small meals each day. ??? Take vitamin or mineral supplements as recommended by your dietitian. ??? If you are malnourished or if your dietitian recommends it: ? You may follow a high-protein, high-calorie diet. This may include: ? 2,000???3,000 calories (kilocalories) a day. ? 70???100 g (grams) of protein a day. ? You may be directed to follow a diet that includes a complete nutritional supplement beverage. This can help to restore calories, protein, and vitamins to your body. Depending on your condition, you may be advised to consume this beverage instead of your meals or in addition to them. ??? Certain medicines may cause changes in your appetite, taste, and weight. Work with your health care provider and dietitian to make any changes to your medicines and eating plan. ??? If you are unable to take in enough food and calories by mouth, your health care provider may recommend a feeding tube. This tube delivers nutritional supplements directly to your stomach. Recommended foods ??? Eat foods that are high in molecules that prevent oxygen from reacting with your food (antioxidants). These foods include grapes, berries, nuts, green tea, and dark green or orange vegetables. Eating these can help to prevent some of the stress that is placed on your liver by consuming alcohol. ??? Eat a variety of fresh fruits and vegetables each day. This will help you to get fiber and vitamins in your diet. ??? Drink plenty of water and other clear fluids, such as apple juice and broth. Try to drink at least 48???64 oz (1.5???2 L) of water a day. ??? Include foods fortified with vitamins and minerals in your diet. Commonly fortified foods include milk, orange juice, cereal, and bread. ??? Eat a variety of foods that are high in omega-3 and omega-6 fatty acids. These include fish, nuts and seeds, and soybeans. These foods may help your liver to recover and may also stabilize your mood. ??? If you are a vegetarian: ? Eat a variety of protein-rich foods. ? Pair whole grains with plant-based proteins at meals and snack time. For example, eat rice with beans, put peanut butter on whole-grain toast, or eat oatmeal with sunflower seeds. The items listed above may not be a complete list of foods and beverages [you/your child] can eat. Contact a dietitian for more information. Foods to avoid ??? Avoid foods and drinks that are high in fat and sugar. Sugary drinks, salty snacks, and candy contain empty calories. This means that they lack important nutrients such as protein, fiber, and vitamins. ??? Avoid alcohol. This is the best way to avoid malnutrition due to alcohol abuse. If you must drink, drink measured amounts. Measured drinking means limiting your intake to no more than 1 drink a day for non women and 2 drinks a day for men. One drink equals 12 oz (355 mL) of beer, 5 oz (148 mL) of wine, or 1?? oz (44 mL) of hard liquor. ??? Limit your intake of caffeine. Replace drinks like coffee and black tea with decaffeinated coffee and decaffeinated herbal tea. The items listed above may not be a complete list of foods and beverages [you/your child] should avoid. Contact a dietitian for more information. Summary ??? Alcohol abuse can cause poor nutrition (malnutrition or malnourishment) and a lack of nutrients (nutrient deficiencies), which can lead to more health problems. ??? Common nutrient deficiencies include vitamin deficiencies (A, B, C, and D) and mineral deficiencies (calcium, iron, magnesium, and zinc). ??? Nutrition is an essential factor in therapy for alcohol abuse. ??? Your health care provider and dietitian can help you to develop a specific eating plan that includes a balanced diet plus vitamin and mineral supplements. This information is not intended to replace advice given to you by your health care provider. Make sure you discuss any questions you have with your health care provider. Document Released: 01/31/2006 Document Revised: 12/24/2017 Document Reviewed: 12/24/2017 [employer] Interactive Patient Education ?? 2019 [employer]. thiamine (vitamin B1) (THIGH a min) Vitamin B1 What is the most important information I should know about thiamine? You should not use thiamine if you have ever had an allergic reaction to it. Ask a doctor or pharmacist before taking thiamine if you have any medical conditions, if you take other medications or herbal products, or if you are allergic to any drugs or foods. Before you receive injectable thiamine, tell your doctor if you have kidney disease. Thiamine is only part of a complete program of treatment that may also include a special diet. It is very important to follow the diet plan created for you by your doctor or nutrition counselor. You should become very familiar with the list of foods you should eat or avoid to help control your condition. What is thiamine? Thiamine is vitamin B1. Thiamine is found in foods such as cereals, whole grains, meat, nuts, beans, and peas. Thiamine is important in the breakdown of carbohydrates from foods into products needed by the body. Thiamine is used to treat or prevent vitamin B1 deficiency. Thiamine injection is used to treat beriberi, a serious condition caused by prolonged lack of vitamin B1. Thiamine taken by mouth (oral) is available without a prescription. Injectable thiamine must be given by a healthcare professional. Thiamine may also be used for purposes not listed in this medication guide. What should I discuss with my healthcare provider before taking thiamine? You should not use thiamine if you have ever had an allergic reaction to it. Ask a doctor or pharmacist if it is safe for you to take this medicine if: ?? you have any other medical conditions; ?? you take other medications or herbal products; or ?? you are allergic to any drugs or foods. To make sure you can safely receive injectable thiamine, tell your doctor if you have kidney disease. Thiamine is not expected to harm an unborn baby. Your thiamine dose needs may be different during . Do not take thiamine without medical advice if you are or plan to become . It is not known whether thiamine passes into breast milk. Your dose needs may be different while you are nursing. Do not take thiamine without medical advice if you are breast-feeding a baby. How should I take thiamine? Use exactly as directed on the label, or as prescribed by your doctor. Do not use in larger or smaller amounts or for longer than recommended. Injectable thiamine is injected into a muscle. You may be shown how to use injections at home. Do not self-inject this medicine if you do not fully understand how to give the injection and properly dispose of used needles and syringes. Do not use the injectable medication if it has changed colors or has particles in it. Call your doctor for a new prescription. The recommended dietary allowance of thiamine increases with age. Follow your healthcare provider's instructions. You may also consult the National Academy of Sciences 'Dietary Reference Intake' or the [place]. Department of Agriculture's 'Dietary Reference Intake' (formerly 'Recommended Daily Allowances' or [employer]) listings for more information. Thiamine is only part of a complete program of treatment that may also include a special diet. It is very important to follow the diet plan created for you by your doctor or nutrition counselor. You should become very familiar with the list of foods you should eat or avoid to help control your condition. Store at room temperature away from moisture, heat, and light. What happens if I miss a dose? Use the missed dose as soon as you remember. Skip the missed dose if it is almost time for your next scheduled dose. Do not use extra medicine to make up the missed dose. What happens if I overdose? Seek emergency medical attention or call the Poison Help line at . What should I avoid while taking thiamine? Follow your doctor's instructions about any restrictions on food, beverages, or activity. What are the possible side effects of thiamine? Get emergency medical help if you have any of these signs of an allergic reaction: hives; difficult breathing; swelling of your face, lips, tongue, or throat. Call your doctor at once if you have a serious side effect such as: ?? blue colored lips; ?? chest pain, feeling short of breath; ?? black, bloody, or tarry stools; or ?? coughing up blood or vomit that looks like coffee grounds. Less serious side effects may include: ?? nausea, tight feeling in your throat; ?? sweating, feeling warm; ?? mild rash or itching; ?? feeling restless; or ?? tenderness or a hard lump where a thiamine injection was given. This is not a complete list of side effects and others may occur. Call your doctor for medical advice about side effects. You may report side effects to FDA at 2-554-UIT-4218. What other drugs will affect thiamine? There may be other drugs that can interact with thiamine. Tell your doctor about all medications you use. This includes prescription, [id number], vitamin, and herbal products. Do not start a new medication without telling your doctor. Where can I get more information? Your pharmacist can provide more information about thiamine. Remember, keep this and all other medicines out of the reach of children, never share your medicines with others, and use this medication only for the indication prescribed. Every effort has been made to ensure that the information provided by [employer]. ('[employer]') is accurate, up-to-date, and complete, but no guarantee is made to that effect. Drug information contained herein may be time sensitive. [employer] information has been compiled for use by healthcare practitioners and consumers in the [place] and therefore [employer] does not warrant that uses outside of the [place] are appropriate, unless specifically indicated otherwise. [employer] drug information does not endorse drugs, diagnose patients or recommend therapy. [employer] drug information is an informational resource designed to assist licensed healthcare practitioners in caring for their patients and/or to serve consumers viewing this service as a supplement to, and not a substitute for, the expertise, skill, knowledge and judgment of healthcare practitioners. The absence of a warning for a given drug or drug combination in no way should be construed to indicate that the drug or drug combination is safe, effective or appropriate for any given patient. [employer] does not assume any responsibility for any aspect of healthcare administered with the aid of information [employer] provides. The information contained herein is not intended to cover all possible uses, directions, precautions, warnings, drug interactions, allergic reactions, or adverse effects. If you have questions about the drugs you are taking, check with your doctor, nurse or pharmacist. Copyright 8255-7128 [employer]. Version: 3.02. Revision Date: 03/24/2013. folic acid (FOE lik id) [id number], [id number] What is the most important information I should know about folic acid? You should not use this medication if you have ever had an allergic reaction to folic acid. Before you take folic acid, tell your doctor if you have kidney disease (or if you are on dialysis), an infection, if you are an alcoholic, or if you have any type of anemia that has not been diagnosed by a doctor and confirmed with laboratory testing. Talk to your doctor about taking folic acid during or while breast-feeding. Folic acid is sometimes used in combination with other medications to treat pernicious anemia. However, folic acid will not treat Vitamin B12 deficiency and will not prevent possible damage to the spinal cord. Take all of your medications as directed. What is folic acid? Folic acid is a type of B vitamin that is normally found in foods such as dried beans, peas, lentils, oranges, whole-wheat products, liver, asparagus, beets, broccoli, brussels sprouts, and spinach. Folic acid helps your body produce and maintain new cells, and also helps prevent changes to DNA that may lead to cancer. As a medication, folic acid is used to treat folic acid deficiency and certain types of anemia (lack of red blood cells) caused by folic acid deficiency. Folic acid is sometimes used in combination with other medications to treat pernicious anemia. However, folic acid will not treat Vitamin B12 deficiency and will not prevent possible damage to the spinal cord. Take all of your medications as directed. Folic acid may also be used for other purposes not listed in this medication guide. What should I discuss with my healthcare provider before taking folic acid? You should not use this medication if you have ever had an allergic reaction to folic acid. If you have any of these other conditions, you may need a dose adjustment or special tests to safely use this medication: ?? kidney disease (or if you are on dialysis); ?? hemolytic anemia; ?? pernicious anemia; ?? anemia that has not been diagnosed by a doctor and confirmed with laboratory testing; ?? an infection; or ?? if you are an alcoholic. FDA category A. Folic acid is not expected to be harmful to an unborn baby, and your dose needs may even increase while you are . Talk to your doctor about taking folic acid during . Your dose needs may also be different if you are breast-feeding a baby. Ask your doctor about taking folic acid if you are breast-feeding. How should I take folic acid? Take this medication exactly as prescribed by your doctor. Do not take it in larger amounts or for longer than recommended. Follow the directions on your prescription label. Take folic acid with a full glass of water. Your doctor may occasionally change your dose to make sure you get the best results from this medication. Store folic acid at room temperature away from moisture and heat. What happens if I miss a dose? Take the missed dose as soon as you remember. If it is almost time for your next dose, wait until then to take the medicine and skip the missed dose. Do not take extra medicine to make up the missed dose. What happens if I overdose? Seek emergency medical attention if you think you have used too much of this medicine. Overdose symptoms may include numbness or tingling, mouth or tongue pain, weakness, tired feeling confusion, or trouble concentrating. What should I avoid while taking folic acid? Follow your doctor's instructions about any restrictions on food, beverages, or activity. What are the possible side effects of folic acid? Get emergency medical help if you have any of these signs of an allergic reaction: hives; difficult breathing; swelling of your face, lips, tongue, or throat. Less serious side effects are more likely, but may include: ?? nausea, loss of appetite; ?? bloating, gas; ?? bitter or unpleasant taste in your mouth; ?? sleep problems; ?? depression; or ?? feeling excited or irritable. This is not a complete list of side effects and others may occur. Call your doctor for medical advice about side effects. You may report side effects to FDA at 1-570-FBO-6654. What other drugs will affect folic acid? The dosages of other medications you take may need to be changed while you are taking folic acid. Tell your doctor about all other medications you use, especially: ?? phenytoin (Dilantin); ?? methotrexate (Rheumatrex, Trexall); ?? nitrofurantoin (Macrodantin, Macrobid); ?? pyrimethamine (Daraprim); ?? tetracycline (Ala-Tet, Brodspec, Sumycin); ?? a barbiturate such as butabarbital (Butisol), secobarbital (Seconal), pentobarbital (Nembutal), or phenobarbital (Solfoton); or ?? seizure medication such as phenytoin (Dilantin) or primidone (Mysoline). This list is not complete and there may be other drugs that can interact with folic acid. Tell your doctor about all your prescription and wpjz-pvn-xoqujth medications, vitamins, minerals, herbal products, and drugs prescribed by other doctors. Do not start a new medication without telling your doctor. Where can I get more information? Your pharmacist can provide more information about folic acid. Remember, keep this and all other medicines out of the reach of children, never share your medicines with others, and use this medication only for the indication prescribed. Every effort has been made to ensure that the information provided by [employer]. ('[employer]') is accurate, up-to-date, and complete, but no guarantee is made to that effect. Drug information contained herein may be time sensitive. [employer] information has been compiled for use by healthcare practitioners and consumers in the [place] and therefore [employer] does not warrant that uses outside of the [place] are appropriate, unless specifically indicated otherwise. [employer] drug information does not endorse drugs, diagnose patients or recommend therapy. [employer] drug information is an informational resource designed to assist licensed healthcare practitioners in caring for their patients and/or to serve consumers viewing this service as a supplement to, and not a substitute for, the expertise, skill, knowledge and judgment of healthcare practitioners. The absence of a warning for a given drug or drug combination in no way should be construed to indicate that the drug or drug combination is safe, effective or appropriate for any given patient. [employer] does not assume any responsibility for any aspect of healthcare administered with the aid of information [employer] provides. The information contained herein is not intended to cover all possible uses, directions, precautions, warnings, drug interactions, allergic reactions, or adverse effects. If you have questions about the drugs you are taking, check with your doctor, nurse or pharmacist. Copyright 7770-8498 [employer]. Version: 5.02. Revision Date: 04/05/2010. multivitamins (MUL teresa VYE ta mins) What is the most important information I should know about multivitamins? Seek emergency medical attention if you think you have used too much of this medicine. An overdose of vitamins A, D, E, or K can cause serious or life-threatening side effects. Certain minerals contained in a multivitamin may also cause serious overdose symptoms if you take too much. What is a multivitamin? Multivitamins are a combination of many different vitamins that are normally found in foods and other natural sources. Multivitamins are used to provide vitamins that are not taken in through the diet. Multivitamins are also used to treat vitamin deficiencies (lack of vitamins) caused by illness, , poor nutrition, digestive disorders, and many other conditions. Multivitamins may also be used for purposes not listed in this medication guide. What should I discuss with my healthcare provider before taking multivitamins? Many vitamins can cause serious or life-threatening side effects if taken in large doses. Do not take more of this medicine than directed on the label or prescribed by your doctor. Before you use multivitamins, tell your doctor about all your medical conditions and allergies. Ask a doctor before using this medicine if you are or . Your dose needs may be different during . Some vitamins and minerals can harm an unborn baby if taken in large doses. You may need to use a vitamin specially formulated for women. How should I take multivitamins? Use exactly as directed on the label, or as prescribed by your doctor. Never take more than the recommended dose of a multivitamin. Avoid taking more than one multivitamin product at the same time unless your doctor tells you to. Taking similar vitamin products together can result in a vitamin overdose or serious side effects. Many multivitamin products also contain minerals such as calcium, iron, magnesium, potassium, and zinc. Minerals (especially taken in large doses) can cause side effects such as tooth staining, increased urination, stomach bleeding, uneven heart rate, confusion, and muscle weakness or limp feeling. Read the label of any multivitamin product you take to make sure you are aware of what it contains. Take your multivitamin with a full glass of water. You must chew the chewable tablet before you swallow it. Place the sublingual tablet under your tongue and allow it to dissolve completely. Do not chew a sublingual tablet or swallow it whole. Measure liquid medicine carefully. Use the dosing syringe provided, or use a medicine dose-measuring device (not a kitchen spoon). Use multivitamins regularly to get the most benefit. Store at room temperature away from moisture and heat. Do not freeze. Store multivitamins in their original container. Storing multivitamins in a glass container can ruin the medication. What happens if I miss a dose? Take the medicine as soon as you can, but skip the missed dose if it is almost time for your next dose. Do not take two doses at one time. What happens if I overdose? Seek emergency medical attention or call the Poison Help line at . An overdose of vitamins A, D, E, or K can cause serious or life-threatening side effects. Certain minerals may also cause serious overdose symptoms if you take too much. Overdose symptoms may include stomach pain, vomiting, diarrhea, constipation, loss of appetite, hair loss, peeling skin, tingly feeling in or around your mouth, changes in menstrual periods, weight loss, severe headache, muscle or joint pain, severe back pain, blood in your urine, pale skin, and easy bruising or bleeding. What should I avoid while taking multivitamins? Avoid taking more than one multivitamin product at the same time unless your doctor tells you to. Taking similar vitamin products together can result in a vitamin overdose or serious side effects. Avoid the regular use of salt substitutes in your diet if your multivitamin contains potassium. If you are on a low-salt diet, ask your doctor before taking a vitamin or mineral supplement. Do not take multivitamins with milk, other dairy products, calcium supplements, or antacids that contain calcium. Calcium may make it harder for your body to absorb certain ingredients of the multivitamin. What are the possible side effects of multivitamins? Get emergency medical help if you have signs of an allergic reaction: hives; difficulty breathing; swelling of your face, lips, tongue, or throat. When taken as directed, multivitamins are not expected to cause serious side effects. Common side effects may include: ?? upset stomach; ?? headache; or ?? unusual or unpleasant taste in your mouth. This is not a complete list of side effects and others may occur. Call your doctor for medical advice about side effects. You may report side effects to FDA at 0-796-EQG-3722. What other drugs will affect multivitamins? Multivitamins can interact with certain medications, or affect how medications work in your body. Ask a doctor or pharmacist if it is safe for you to use multivitamins if you are also using: ?? tretinoin or isotretinoin; ?? an antacid; ?? an antibiotic; ?? a diuretic or 'water pill'; ?? heart or blood pressure medications; ?? a sulfa drug; or ?? NSAIDs (nonsteroidal anti-inflammatory drugs)--ibuprofen (Advil, Motrin), naproxen (Aleve), celecoxib, diclofenac, indomethacin, meloxicam, and others. This list is not complete. Other drugs may affect multivitamins, including prescription and aarf-ihp-jscmjat medicines, vitamins, and herbal products. Not all possible drug interactions are listed here. Where can I get more information? Your pharmacist can provide more information about multivitamins. Remember, keep this and all other medicines out of the reach of children, never share your medicines with others, and use this medication only for the indication prescribed. documented in this encounter Plan of Treatment Not on file documented as of this encounter Visit Diagnoses Not on filedocumented in this encounter
--- OUTSIDE RECORDS SUMMARY | 2024-10-15 09:11 | XMS_ITS | Encounter Summary ---
Author Organization [facility] Address [address] [place] [address] Care Team Providers Care Finger Cobbler Name Role Phone Unavailable Primary Care Provider Unavailabl e Encounter Details Date Type Department Care Team (Late st Contact Info) Description 01/07/[address] [facility] [place] Family Medicine [address] [place] [address] ProviderMary Kate MD [address] [place] [address] Social History Tobacco Use Types Packs/Day Years Used Date Smoking Tobacco: Never Assessed Sex and Gender Information Value Date Recorded Sex Assigned at Not on file Legal Sex Male 5:22 PM CDT Gender Identity Not on file Sexual Orientation Not on file documented as of this encounter Miscellaneous Notes * Cerner Conversion Note - Historical ProviderMD - 01/07/2019 5:00 PM CDT Chart Check - Review Order Profile Entered On: 01/07/2019 17:04 EDT Performed On: 01/07/2019 17:00 EDT by NARGIS MEREDITH, SHANELL Chart Check All Active Orders Reviewed : Yes NARGIS MEREDITH RN - 01/07/2019 17:04 EDT documented in this encounter Plan of Treatment Not on file documented as of this encounter Visit Diagnoses Not on filedocumented in this encounter
--- OUTSIDE RECORDS SUMMARY | 2024-10-15 09:11 | XMS_ITS | Encounter Summary ---
Author Organization [employer] [facility] Address [address] [place] [address] Care Team Providers Care Coagulating Drying Supervisor Name Role Phone Unavailable Primary Care Provider Unavailabl e Encounter Details Date Type Department Care Team (Late st Contact Info) Description 01/04/2019 Transcribed Document [facility] [place] Family Medicine [address] [place] [address] ProviderMary Kate MD [address] [place] [address] Social History Tobacco Use Types Packs/Day Years Used Date Smoking Tobacco: Never Assessed Sex and Gender Information Value Date Recorded Sex Assigned at Not on file Legal Sex Male 5:22 PM CDT Gender Identity Not on file Sexual Orientation Not on file documented as of this encounter Miscellaneous Notes * Cerner Conversion Note - Mary Kate ProviderMD - 01/04/2019 5:19 PM CDT Evaluation, Physical Therapy Entered On: 01/05/2019 13:19 EDT Performed On: 01/05/2019 10:50 EDT by Dean Delgado Physical Therapist General Information, PT Visit Type, PT : Initial evaluation Dean Delgado Physical Therapist - 01/05/2019 13:16 EDT Patient Orders : Order Date Order Ordering 01/04/2019 17:19 PT Evaluation and Treatment Ordered By: ASHLEY MAGANA MD Active Diagnoses : 01/05/2019 12:00 Alcohol dependence with withdrawal, unspecified Dean Delgado Physical Therapist - 01/05/2019 14:00 EDT Therapy Diagnosis, PT : reduced mobility Dean Delgado Physical Therapist - 01/05/2019 13:16 EDT Admission Date : 01/04/2019 16:47 Personal Devices : Personal Devices No Devices Recorded Assistive Devices : Assistive Devices No Devices Recorded Dean Delgado Physical Therapist - 01/05/2019 14:[address] : Fall prevention measures, Fall prevention measures, high risk Isolation Maintained : Contact General Information Comment, PT : Pt admitted with recent nausea/vomiting, seizures. Being treated for alcohol withdrawl, acute renal failure, seizures, GI bleed. Dean Delgado Physical Therapist - 01/05/2019 13:16 EDT General Status Patient Left Status : Supine in bed, Communication board completed, All needs met and within reach RN/PCT Informed Comment : RN ok'd PT Dean Delgado Physical Therapist - 01/05/2019 13:19 EDT Patient Received Status : Supine in bed Treatment Start Time : 01/05/2019 10:33 EDT Treatment End Time : 01/05/2019 10:50 EDT Treatment Time : 17 Minute(s) Dean Delgado Physical Therapist - 01/05/2019 13:16 EDT History and Environment Living Situation, Therapy : Home Patient Lives With : Alone Persons Assisting Patient at Home : Alone Professional Skilled Services : None Persons Providing Information : Patient Home Equipment Therapy, PT : None Home Setup : One story Stairs : Yes Stair Location(s) : Outside, Other: Outside Stairs, Number of Steps : 1 Dean Delgado Physical Therapist - 01/05/2019 13:19 EDT Prior Level of Function PT GRID Prior LOF Ambulation, Household : Independent Prior LOF Ambulation, Community : Independent Prior LOF Bed Mobility : Independent Prior LOF Toileting : Independent Prior LOF Transfer : Independent Dean Delgado Physical Therapist - 01/05/2019 13:19 EDT Intervention Summary Heart Rate/Pulse Pre-intervention : 116 bpm Respiratory Rate Pre-intervention : 19 Breaths/Min BP Systolic Pre-intervention : 142 mmHg BP Diastolic Pre-intervention : 86 mmHg SpO2 Pre-Intervention : 100 % Dean Delgado Physical Therapist - 01/05/2019 13:19 EDT Upper Extremity Right UE Active Assist ROM : WFL Right UE Strength : Impaired Left UE Active Assist ROM : WFL Left UE Strength : Impaired Upper Extremity Comment : 3+/5 BUEs Dean Delgado Physical Therapist - 01/05/2019 14:00 EDT Lower Extremity RLE Active ROM : Impaired Right LE Strength : Impaired LLE Active ROM : Impaired Left LE Strength : Impaired Lower Extremity Comment : 3-/5 BLEs, limited BLE ROM about 50% of normal Dean Delgado Physical Therapist - 01/05/2019 14:00 EDT Functional Mobility Mobility Grid Supine to Sit : Rehab Moderate assistance (Comment: x 2 [Dean Delgado Physical Therapist - 01/05/2019 14:00 EDT] ) Sit to Supine : Rehab Moderate assistance (Comment: x 2 [Dean Delgado Physical Therapist - 01/05/2019 14:00 EDT] ) Dean Delgado Physical Therapist - 01/05/2019 14:00 EDT Functional MobilityComment : Sat EOB about 8 mins. Able to hold static sitting balance with CGA. Very lethargic and slow to move throughout. Not ready for standing assessment today. Dean Delgado Physical Therapist - 01/05/2019 14:00 EDT Neuromuscular Reeducation, PT Balance Comment : -fair for static sitting -poor for dynamic sitting Dean Delgado Physical Therapist - 01/05/2019 14:00 EDT Neurological/Sensory Overall Sensory Response : Impaired Response to Pain : Intact Dean Delgado Physical Therapist - 01/05/2019 14:00 EDT Cognition Assessment, PT Orientation : Oriented x 4 Attention Assessment : Present Dean Delgado Physical Therapist - 01/05/2019 14:00 EDT Edu Topics Physical Therapy Education Grid Positioning : Needs further teaching Role of Physical Therapy : Needs further teaching Safety : Needs further teaching Transfer Training : Needs further teaching Dean Delgado Physical Therapist - 01/05/2019 14:00 EDT Indication Assesessment, PT Physical Therapy Indicated : Yes PT Problem List : Impaired, activities daily living, Impaired, bed mobility, Impaired, coordination/proprioception, Impaired, endurance tolerance, Impaired, gait, Impaired, sitting balance, Impaired, standing balance, Impaired, strength, Impaired, transfers Potential Barriers To Therapy : Acuity of Illness, Fatigue Rehabilitation Potential : Good Dean Delgado Physical Therapist - 01/05/2019 14:00 EDT Plan of Care, PT PT Tx Plan/Goals Established w Patient : Yes PT Frequency Rehab : Daily PT Duration Rehab : Seven Days PT Treatments Planned : Balance training, Bed mobility training, Caregiver training, Gait training, Neuromuscular reeducation, Safety education, Therapeutic exercises, Transfer training Dean Delgado Physical Therapist - 01/05/2019 14:00 EDT Legal Support Specialist Goals Other PT LTG Grid Goal #1 Goal #2 Other : Pt will perform supine to sit with min x 1 for improvement in functional task training. Pt will perform 12-15 reps BLE ther-ex for improvement in ROM/strength. Date to Meet : 01/12/2019 EDT 01/12/2019 EDT Goal Status : Initial goal Initial goal Dean Delgado, Physical Therapist - 01/05/2019 14:00 EDT Dean Delgado Physical Therapist - 01/05/2019 14:00 EDT Treatment Note Subjective Comment : Pt lethargic but agreeable to PT treatment when arousable. Patient's Response to Treatment : Good Additional Objective Information : see eval Assessment : Pt presents with deficits in strength, function, ROM in the presence of alcohol withdrawl. Will require skilled PT to address these deficits while in the hospital and progress towards safe and independent function. Plan for Treatment : see pt daily Dean Delgado Physical Therapist - 01/05/2019 14:00 EDT Pain Assessment Pain Scaled Used : 0-10 Pain scale Pain Score Pre-Intervention : 0 Dean Delgado Physical Therapist - 01/05/2019 14:00 EDT Image 1 - Images currently included in the form version of this document have not been included in the text rendition version of the form. [place] PT Charges PT Ther Activities Ea 15 Min : 1 PT Eval High Complexity : 1 Dean Delgado Physical Therapist - 01/05/2019 14:00 EDT documented in this encounter Plan of Treatment Not on file documented as of this encounter Visit Diagnoses Not on filedocumented in this encounter
--- OUTSIDE RECORDS SUMMARY | 2024-10-15 09:11 | XMS_ITS | Encounter Summary ---
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 Name Role Phone Unavailable Primary Care Provider Unavailabl e Encounter Details Date Type Department Care Team (Late st Contact Info) Description 01/04/2019 Transcribed Document [facility] [place] Family Medicine [address] [place] [address] ProviderMary Kate MD [address] [place] [address] Social History Tobacco Use Types Packs/Day Years Used Date Smoking Tobacco: Never Assessed Sex and Gender Information Value Date Recorded Sex Assigned at Not on file Legal Sex Male 5:22 PM CDT Gender Identity Not on file Sexual Orientation Not on file documented as of this encounter Miscellaneous Notes * Cerner Conversion Note - Mary Kate ProviderMD - 01/04/2019 4:44 PM CDT Admission History, Adult Entered On: 01/04/2019 17:07 EDT Performed On: 01/04/2019 16:44 EDT by Eileen Orantes Rn Advance Directive Patient has Advance Directive *Q : No, patient requests information about Advance Directive Eileen Orantes Rn - 01/04/2019 16:55 EDT Anesthesia/Transfusion History Family History of Anesthesia Reaction : No prior transfusion(s) Transfusion History : Prior anesthesia without reaction Family History of Anesthesia Reaction : None Eileen Orantes Rn - 01/04/2019 16:55 EDT Anticipated Discharge Needs Discharge To, Anticipated : Home Eileen Orantes Rn - 01/04/2019 16:55 EDT Education Topics, Admission Orientation DCP GENERIC CODE Advance Directives : Verbalizes understanding Allergy Band Applied : Verbalizes understanding Assessment/Vital Signs : Verbalizes understanding Bed Control : Verbalizes understanding Call Light : Verbalizes understanding Confidentiality : Verbalizes understanding Diet/Room Service : Verbalizes understanding Fall Prevention : Verbalizes understanding Hand Hygiene : Verbalizes understanding Healthcare Provider Visit : Verbalizes understanding ID Band Applied : Verbalizes understanding Orientation to Room/Bathroom : Verbalizes understanding Patient Bill of Rights : Verbalizes understanding Patient Rights/Responsibilities : Verbalizes understanding Patient Safety : Verbalizes understanding Personal Privacy Code : Verbalizes understanding Rapid Response Initiated by Patient/Family : Verbalizes understanding Rounding : Verbalizes understanding Siderails use/risks : Verbalizes understanding Skin Precautions : Verbalizes understanding Telemetry Monitoring : Verbalizes understanding Television/Phone : Verbalizes understanding Visiting Policy : Verbalizes understanding Eileen Orantes Rn - 01/04/2019 16:55 EDT Functional Assessment Living Situation : Home Current Home Treatments : None Eileen Orantes Rn - 01/04/2019 16:55 EDT General Info Emergency Contact #1 : . Emergency Contact #1 Phone Number : . Emergency Contact #1 Relationship : . Emergency Contact #2 : . Emergency Contact #2 Phone Number : . Emergency Contact #2 Relationship : . ASHLEIGH WADE Rn - 01/04/2019 18:21 EDT Legal Guardian : No Want Family/Rep/Phys Notified of Admit : No Primary Language : Cypriot Communication Barrier : None Eileen Orantes Rn - 01/04/2019 16:55 EDT Fall Risk Scales ABCs Fall Injury Risk Identification : None [place] Hx Falls Immediate/Within 3 Months : Yes [place] Secondary Diagnosis : Yes [place] Use of Ambulatory Aid : Bed rest/Nurse assist [place] IV Therapy or IV Access : Yes [place] Gait/Transferring : Normal, bedrest, immobile [place] Mental Status : Oriented to own ability [place] Fall Risk Score : 60 [place] Fall Scale Risk Level : 46 or > High Risk [place] Fall Interventions : Adequate lighting, Assistive devices within reach, Bed in low position, Call device within reach, Fall prevention handout/education per facility policy, Frequent orientation to call device, Frequent orientation to surroundings, Hourly comfort/safety rounds, Non-slip footwear, Personal items within reach, Reinforced to call for assistance before getting out of bed, Room free of clutter/spills, Upper side-rails up, Wheels locked, Wires/Cords secured Eileen Orantes Rn - 01/04/2019 16:55 EDT Health Histories Smoking Status : Never (less than 100 in lifetime; none in last 30 days) Smokeless Tobacco Status : Never Eileen Orantes Rn - 01/04/2019 16:55 EDT Social History (As Of: 01/04/2019 17:07:44 EDT) Alcohol: Alcohol Use History Yes. # Drinks/Day: 5. Date/Time of Last Drink: 12/24/2017. Use in Last 12 Months: Yes. Alcohol Use Frequency Daily. Alcohol Use Comment pt states he drinks 4-5 glasses of vodka per day . (Last Updated: 12/24/2017 23:57:55 EDT by Bea Singh RN) Height and Weight, Clinical Dosing Height Source : Chart Height Entry Format : [place] Height, Feet : 5 ft(Converted to: 152 cm, 60 Inch) Height, Inches : 7 Inch(Converted to: 0 ft 7 Inch, 17.78 cm) Clinical Height : 170.18 cm Weight Source : Bed scale Weight Entry Format : [place] Clinical Dosing Weight : 74.91 kg Weight, Pounds : 164.8 lb Body Surface Area (BSA) : 1.86 m2 Body Mass Index : 25.9 kg/m2 (HI) [place] Body Weight : 65 kg Eileen Orantes Rn - 01/04/2019 16:55 EDT Infectious Disease History Infectious Disease History : None Fever/Chills Last 48 Hours : No Travel To Regions with Travel Advisories : No Travel Outside [place] Within Last 30 Days : No Contact With Traveler to Advisory Region : No Tuberculosis Symptoms : None Eileen Orantes Rn - 01/04/2019 16:55 EDT Tetanus Immunization Status Previous Tetanus Immunizations : No qualifying data available. Eileen Orantes Rn - 01/04/2019 16:55 EDT Influenza Vaccine Asmt, Adult Previous Vaccines from Immunization Schedule : No qualifying data available. Influenza Immunization, Current Season : No Inactivated Flu Vaccine Contraindications : No contraindications to inactivated influenza vaccine Transplant Workup/Recent Transplant : No Order for Influenza Vaccine : Declined Vaccination Eileen Orantes Rn - 01/04/2019 16:55 EDT Pneumococcal Vaccine Previous Vaccines from Immunization Schedule : No qualifying data available. Pneumonia Immunization Received : No Pneumococcal Risk Assessment < Age 65 : None Eileen Orantes Rn - 01/04/2019 16:55 EDT Nutrition History Eating Poorly Due to Decreased Appetite : No Unplanned Weight Loss in Past 3-6 Months : No Malnutrition Screening Tool Total(mal) : 0 Malnutrition Screening Tool Risk Level : Patient not at risk Eileen Orantes Rn - 01/04/2019 16:55 EDT Psychosocial History Currently in Unsafe Situation : No Tried to Harm Yourself in the Past? : No Thoughts of Harming/Killing Yourself : No Eileen Orantes Rn - 01/04/2019 16:55 EDT Sleep Apnea Risk Assmt BiPAP/CPAP Ordered for Home Use : No Hx of Obstructive Sleep Apnea Diagnosis : Yes Age over 50 Years Old : Yes Gender Male : Yes Eileen Orantes Rn - 01/04/2019 16:55 EDT Valuables and Belongings Valuables and Belongings : Clothing Clothing : Common streetwear Clothing Disposition : Bedside, With patient ASHLEIGH WADE Rn - 01/04/2019 18:21 EDT documented in this encounter Plan of Treatment Not on file documented as of this encounter Visit Diagnoses Not on filedocumented in this encounter
--- OUTSIDE RECORDS SUMMARY | 2024-10-15 09:11 | XMS_ITS | Encounter Summary ---
Author Organization [facility] Address [address] [place] [address] Care Team Providers Care Photographic Equipment Inspector Name Role Phone Unavailable Primary Care Provider Unavailabl e Encounter Details Date Type Department Care Team (Late st Contact Info) Description 01/06/2019 Transcribed Document [facility] [place], [place] Family Medicine [address] [place] [address] ProviderMary Kate MD [address] [place] [address] Social History Tobacco Use Types Packs/Day Years Used Date Smoking Tobacco: Never Assessed Sex and Gender Information Value Date Recorded Sex Assigned at Not on file Legal Sex Male 5:22 PM CDT Gender Identity Not on file Sexual Orientation Not on file documented as of this encounter Miscellaneous Notes * Cerner Conversion Note - Mary Kate ProviderMD - 01/06/2019 8:47 AM CDT Patient: MING MILLS Age: 53 years Sex: Male : 1965 Associated Diagnoses: None Author: Margarita Moe, Nurse Pract-Neurology Subjective 01/05/19 Neurology Consult - Mr. Ming Mills presented to the ED with 2 day history of nausea/vomiting and reportedly had 2 seizures at home. 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 Reportedly drinks 1 gallon of Vodka every 4 days, last drink was 01/03/19. He was seen 1 year ago here in the hospital for the same thing. Had normal CT head December 2017. He was not placed on seizure medication at that time. He was seen this morning in ICU bed 5. Had received Ativan and was not easily arousable. His nurse reports no concern for seizure activity over night or this morning. 01/06/19 Neurology follow-up: Patient was seen and examined by myself in ICU bed 5. He is drowsy, but awakens easily to sound. He is oriented X 4 and is able to recount the events that led up to his admission. Denies any seizure-like events since hospitalization. MRI brain and EEG from yesterday were WNL. He is taking IV Keppra. Denies any new concerns or complaints. Reviewed VS and labs. Health Status Allergies: Allergic Reactions (All) No Known Allergies No Known Medication Allergies, Allergies (2) Active Reaction No Known Allergies None Documented No Known Medication Allergies None Documented Current medications: (Selected) Inpatient Medications Ordered Ativan: [...] 2 Gram, 4 mL, 100 mL/Hr, IntraVENous, [id number] pantoprazole 40 mg + Sodium Chloride 0.9% intravenous solution 100 mL: 20 mL/Hr, IntraVENous Pending Complete potassium chloride 10 mEq/50 mL intravenous solution: 10 mEq, 100 mL, 100 mL/Hr, IV Piggyback, Q1H Prescriptions Prescribed Multiple Vitamins oral capsule: 1 [...] = 1 Tab, Oral, BID , Medications (27) Active Scheduled: (6) albuterol-ipratropium inh 3 mL 3 mL, Nebulized Inhalation, RT_Q6H docusate sodium 100 mg cap 100 mg 1 Cap, Oral, BID folic acid 1 mg tab 1 mg 1 Tab, Oral, Daily levETIRAcetam 500 mg 100 mL, IV Piggyback, Q12H magnesium sulfate 50% 2 Gram + thiamine 100 mg + multivitamins *ADULT* 10 mL + NaCl 0.9% 1,000 mL 2 Gram 4 mL, IntraVENous, [id number] metoclopramide 10 mg/2 mL inj 10 mg [...] 15 mg 1 Cap, Oral, At Bedtime Problem list: All Problems Alcoholism / SNOMED CT 18596335 / Confirmed History of obstructive sleep apnea / IMO 37750035 / Confirmed GERD - Gastro-esophageal reflux disease / SNOMED CT 2254929627 / Confirmed Alcohol abuse / SNOMED CT 17401778 / Confirmed Depression / SNOMED CT 220247185 / Confirmed Hiatal hernia / SNOMED CT 582294035 / Confirmed Hyperlipidemia / SNOMED CT 76849264 / Confirmed HTN - Hypertension / SNOMED CT 5589596784 / Confirmed Acid reflux / SNOMED CT 831554567 / Confirmed Hypertension / SNOMED CT 0908923618 / Confirmed Hiatal hernia / SNOMED CT 559879522 / Confirmed Hyperlipidemia / SNOMED CT 70979910 / Confirmed Depression / SNOMED CT 14333154 / Confirmed, Active Problems (13) Acid reflux Alcohol abuse Alcoholism Depression Depression GERD - Gastro-esophageal reflux disease Hiatal hernia Hiatal hernia History of obstructive sleep apnea HTN - Hypertension Hyperlipidemia Hyperlipidemia Hypertension Objective VS/Measurements Vital Signs/Vital Measures 01/06/2019 7:40 EDT Systolic Blood Pressure 103 mmHg Diastolic Blood Pressure 59 mmHg LOW Heart Rate Monitored 91 bpm Respiratory Rate 20 Breaths/Min Oxygen Saturation 94.00 % Oxygen Therapy Mode Room air 01/06/2019 7:35 EDT Systolic Blood Pressure 93 mmHg Diastolic Blood Pressure 54 mmHg LOW Heart Rate Monitored 80 bpm Respiratory Rate 20 Breaths/Min Oxygen Saturation 99.00 % Oxygen Therapy Mode Nasal cannula Oxygen Flow Rate 2 Liter/Min 01/06/2019 7:30 EDT Systolic Blood Pressure 85 mmHg LOW Diastolic Blood Pressure 50 mmHg LOW Heart Rate Monitored 91 bpm Respiratory Rate 16 Breaths/Min Oxygen Saturation 99.00 % Oxygen Therapy Mode Nasal cannula Oxygen Flow Rate 4 Liter/Min 01/06/2019 7:25 EDT Systolic Blood Pressure 92 mmHg Diastolic Blood Pressure 55 mmHg LOW Heart Rate Monitored 92 bpm Respiratory Rate 15 Breaths/Min Oxygen Saturation 99 % Oxygen Therapy Mode Nasal cannula Oxygen Flow Rate 5 Liter/Min 01/06/2019 7:06 EDT Systolic Blood Pressure 149 mmHg HI Diastolic Blood Pressure 89 mmHg Heart Rate Monitored 102 bpm HI Respiratory Rate 23 Breaths/Min HI Oxygen Saturation 99.00 % Oxygen Therapy Mode Nasal cannula Oxygen Flow Rate 2 Liter/Min 01/06/2019 6:00 EDT Systolic Blood Pressure 108 mmHg Diastolic Blood Pressure 74 mmHg Mean Arterial Pressure (MAP)-BMDI 86 Heart Rate Monitored 77 bpm Respiratory Rate 20 Breaths/Min Oxygen Saturation 100.00 % 01/06/2019 5:45 EDT Heart Rate Monitored 74 bpm Respiratory Rate 14 Breaths/Min Oxygen Saturation 100.00 % 01/06/2019 5:30 EDT Systolic Blood Pressure 107 mmHg Diastolic Blood Pressure 64 mmHg Mean Arterial Pressure (MAP)-BMDI 80 Heart Rate Monitored 77 bpm Respiratory Rate 13 Breaths/Min LOW Oxygen Saturation 99.00 % 01/06/2019 5:15 EDT Heart Rate Monitored 73 bpm Respiratory Rate 11 Breaths/Min LOW Oxygen Saturation 99.00 % 01/06/2019 5:08 EDT Systolic Blood Pressure 121 mmHg Diastolic Blood Pressure 73 mmHg Mean Arterial Pressure (MAP)-BMDI 92 Temperature Source Oral Temperature Mode Fahrenheit Temperature, Fahrenheit 98.4 Deg F Clinical Temperature, C 36.9 Deg C Heart Rate Monitored 81 bpm Respiratory Rate 13 Breaths/Min LOW Oxygen Saturation 97.00 % 01/06/2019 4:45 EDT Heart Rate Monitored 97 bpm Respiratory Rate 35 Breaths/Min HI Oxygen Saturation 99.00 % 01/06/2019 4:30 EDT Systolic Blood Pressure 136 mmHg Diastolic Blood Pressure 73 mmHg Mean Arterial Pressure (MAP)-BMDI 97 Heart Rate Monitored 91 bpm Respiratory Rate 12 Breaths/Min LOW Oxygen Saturation 99.00 % 01/06/2019 4:15 EDT Heart Rate Monitored 93 bpm Respiratory Rate 14 Breaths/Min Oxygen Saturation 98.00 % 01/06/2019 4:00 EDT Systolic Blood Pressure 127 mmHg Diastolic Blood Pressure 75 mmHg Mean Arterial Pressure (MAP)-BMDI 96 Heart Rate Monitored 88 bpm Respiratory Rate 13 Breaths/Min LOW Oxygen Saturation 97.00 % 01/06/2019 3:30 EDT Systolic Blood Pressure 122 mmHg Diastolic Blood Pressure 65 mmHg Mean Arterial Pressure (MAP)-BMDI 87 Heart Rate Monitored 84 bpm Respiratory Rate 15 Breaths/Min Oxygen Saturation 98.00 % 01/06/2019 3:00 EDT Systolic Blood Pressure 123 mmHg Diastolic Blood Pressure 63 mmHg Mean Arterial Pressure (MAP)-BMDI 85 Heart Rate Monitored 101 bpm HI Respiratory Rate 16 Breaths/Min Oxygen Saturation 89.00 % LOW 01/06/2019 2:30 EDT Systolic Blood Pressure 130 mmHg Diastolic Blood Pressure 64 mmHg Mean Arterial Pressure (MAP)-BMDI 90 Heart Rate Monitored 100 bpm Respiratory Rate 18 Breaths/Min Oxygen Saturation 92.00 % LOW 01/06/2019 2:00 EDT Systolic Blood Pressure 132 mmHg Diastolic Blood Pressure 72 mmHg Mean Arterial Pressure (MAP)-BMDI 95 Heart Rate Monitored 99 bpm Respiratory Rate 21 Breaths/Min HI Oxygen Saturation 97.00 % 01/06/2019 1:30 EDT Systolic Blood Pressure 149 mmHg HI Diastolic Blood Pressure 76 mmHg Mean Arterial Pressure (MAP)-BMDI 105 Heart Rate Monitored 106 bpm HI Respiratory Rate 16 Breaths/Min Oxygen Saturation 93.00 % LOW 01/06/2019 1:00 EDT Systolic Blood Pressure 144 mmHg HI Diastolic Blood Pressure 86 mmHg Mean Arterial Pressure (MAP)-BMDI 110 Heart Rate Monitored 107 bpm HI Respiratory Rate 15 Breaths/Min Oxygen Saturation 97.00 % 01/06/2019 0:30 EDT Systolic Blood Pressure 95 mmHg Diastolic Blood Pressure 54 mmHg LOW Mean Arterial Pressure (MAP)-BMDI 71 Heart Rate Monitored 99 bpm Respiratory Rate 19 Breaths/Min Oxygen Saturation 100.00 % 01/06/2019 0:17 EDT Systolic Blood Pressure 127 mmHg Diastolic Blood Pressure 65 mmHg Mean Arterial Pressure (MAP)-BMDI 89 Temperature Source Oral Temperature Mode Fahrenheit Temperature, Fahrenheit 99.8 Deg F HI Clinical Temperature, C 37.7 Deg C Heart Rate Monitored 109 bpm HI Respiratory Rate 14 Breaths/Min Oxygen Saturation 99.00 % 01/05/2019 23:30 EDT Systolic Blood Pressure 161 mmHg HI Diastolic Blood Pressure 86 mmHg Mean Arterial Pressure (MAP)-BMDI 114 Heart Rate Monitored 134 bpm HI Respiratory Rate 43 Breaths/Min HI Oxygen Saturation 99.00 % 01/05/2019 23:12 EDT Heart Rate Monitored 97 bpm Oxygen Saturation 100.00 % 01/05/2019 23:03 EDT Systolic Blood Pressure 108 mmHg Diastolic Blood Pressure 58 mmHg LOW Mean Arterial Pressure (MAP)-BMDI 76 Heart Rate Monitored 117 bpm HI Respiratory Rate 15 Breaths/Min Oxygen Saturation 99.00 % Oxygen Therapy Mode Nasal cannula Oxygen Flow Rate 2 Liter/Min 01/05/2019 22:30 EDT Systolic Blood Pressure 130 mmHg Diastolic Blood Pressure 81 mmHg Mean Arterial Pressure (MAP)-BMDI 101 Heart Rate Monitored 106 bpm HI Respiratory Rate 16 Breaths/Min Oxygen Saturation 90.00 % LOW 01/05/2019 22:00 EDT Systolic Blood Pressure 139 mmHg Diastolic Blood Pressure 84 mmHg Mean Arterial Pressure (MAP)-BMDI 106 Heart Rate Monitored 104 bpm HI Respiratory Rate 17 Breaths/Min Oxygen Saturation 100.00 % 01/05/2019 21:30 EDT Systolic Blood Pressure 129 mmHg Diastolic Blood Pressure 81 mmHg Mean Arterial Pressure (MAP)-BMDI 101 Heart Rate Monitored 102 bpm HI Respiratory Rate 15 Breaths/Min Oxygen Saturation 100.00 % 01/05/2019 21:00 EDT Systolic Blood Pressure 122 mmHg Diastolic Blood Pressure 68 mmHg Mean Arterial Pressure (MAP)-BMDI 89 Heart Rate Monitored 109 bpm HI Respiratory Rate 19 Breaths/Min Oxygen Saturation 100.00 % 01/05/2019 20:30 EDT Systolic Blood Pressure 143 mmHg HI Diastolic Blood Pressure 75 mmHg Mean Arterial Pressure (MAP)-BMDI 104 Temperature Source Oral Temperature Mode Fahrenheit Temperature, Fahrenheit 99.2 Deg F Clinical Temperature, C 37.3 Deg C Heart Rate Monitored 108 bpm HI Respiratory Rate 20 Breaths/Min Oxygen Saturation 100.00 % 01/05/2019 20:00 EDT Systolic Blood Pressure 144 mmHg HI Diastolic Blood Pressure 6 mmHg LOW Mean Arterial Pressure (MAP)-BMDI 124 Heart Rate Monitored 114 bpm HI Respiratory Rate 17 Breaths/Min Oxygen Saturation 100.00 % 01/05/2019 19:30 EDT Systolic Blood Pressure 121 mmHg Diastolic Blood Pressure 69 mmHg Mean Arterial Pressure (MAP)-BMDI 86 Heart Rate Monitored 97 bpm Respiratory Rate 13 Breaths/Min LOW Oxygen Saturation 97.00 % 01/05/2019 19:00 EDT Systolic Blood Pressure 127 mmHg Diastolic Blood Pressure 74 mmHg Mean Arterial Pressure (MAP)-BMDI 93 Heart Rate Monitored 94 bpm Respiratory Rate 13 Breaths/Min LOW Oxygen Saturation 100.00 % 01/05/2019 18:30 EDT Systolic Blood Pressure 128 mmHg Diastolic Blood Pressure 78 mmHg Mean Arterial Pressure (MAP)-BMDI 97 Heart Rate Monitored 93 bpm Respiratory Rate 12 Breaths/Min LOW Oxygen Saturation 99.00 % 01/05/2019 18:00 EDT Systolic Blood Pressure 141 mmHg HI Diastolic Blood Pressure 89 mmHg Mean Arterial Pressure (MAP)-BMDI 107 Heart Rate Monitored 102 bpm HI Respiratory Rate 16 Breaths/Min Oxygen Saturation 98.00 % 01/05/2019 17:00 EDT Systolic Blood Pressure 133 mmHg Diastolic Blood Pressure 84 mmHg Mean Arterial Pressure (MAP)-BMDI 104 Heart Rate Monitored 105 bpm HI Respiratory Rate 15 Breaths/Min Oxygen Saturation 99.00 % 01/05/2019 16:00 EDT Systolic Blood Pressure 115 mmHg Diastolic Blood Pressure 62 mmHg Mean Arterial Pressure (MAP)-BMDI 81 Temperature Source Axillary Temperature Mode Fahrenheit Temperature, Fahrenheit 98.9 Deg F Heart Rate Monitored 102 bpm HI Respiratory Rate 11 Breaths/Min LOW Oxygen Saturation 99.00 % 01/05/2019 15:35 EDT Heart Rate Monitored 111 bpm HI Respiratory Rate 14 Breaths/Min Oxygen Saturation 99.00 % Oxygen Therapy Mode Nasal cannula Oxygen Flow Rate 2 Liter/Min 01/05/2019 15:00 EDT Systolic Blood Pressure 126 mmHg Diastolic Blood Pressure 79 mmHg Mean Arterial Pressure (MAP)-BMDI 98 01/05/2019 14:00 EDT Systolic Blood Pressure 118 mmHg Diastolic Blood Pressure 68 mmHg Mean Arterial Pressure (MAP)-BMDI 87 Heart Rate Monitored 110 bpm HI Respiratory Rate 15 Breaths/Min Oxygen Saturation 99.00 % 01/05/2019 13:18 EDT Systolic Blood Pressure 126 mmHg Diastolic Blood Pressure 89 mmHg Mean Arterial Pressure (MAP)-BMDI 103 Heart Rate Monitored 106 bpm HI Respiratory Rate 14 Breaths/Min Oxygen Saturation 100.00 % 01/05/2019 12:00 EDT Systolic Blood Pressure 115 mmHg Diastolic Blood Pressure 65 mmHg Mean Arterial Pressure (MAP)-BMDI 80 Temperature Source Axillary Temperature Mode Fahrenheit Temperature, Fahrenheit 98.3 Deg F Clinical Temperature, C 36.8 Deg C Heart Rate Monitored 114 bpm HI Respiratory Rate 14 Breaths/Min Oxygen Saturation 100.00 % 01/05/2019 11:00 EDT Systolic Blood Pressure 139 mmHg Diastolic Blood Pressure 87 mmHg Mean Arterial Pressure (MAP)-BMDI 108 Heart Rate Monitored 110 bpm HI Respiratory Rate 12 Breaths/Min LOW Oxygen Saturation 100.00 % 01/05/2019 10:00 EDT Systolic Blood Pressure 117 mmHg Diastolic Blood Pressure 72 mmHg Mean Arterial Pressure (MAP)-BMDI 90 Heart Rate Monitored 112 bpm HI Respiratory Rate 12 Breaths/Min LOW Oxygen Saturation 100.00 % 01/05/2019 9:00 EDT Systolic Blood Pressure 158 mmHg HI Diastolic Blood Pressure 97 mmHg HI Mean Arterial Pressure (MAP)-BMDI 118 Heart Rate Monitored 125 bpm HI Respiratory Rate 16 Breaths/Min Oxygen Saturation 100.00 % 01/05/2019 8:23 EDT Heart Rate Monitored 118 bpm HI Respiratory Rate 14 Breaths/Min Oxygen Saturation 100.00 % Oxygen Therapy Mode Nasal cannula Oxygen Flow Rate 2 Liter/Min 01/05/2019 8:00 EDT Systolic Blood Pressure 132 mmHg Diastolic Blood Pressure 84 mmHg Mean Arterial Pressure (MAP)-BMDI 104 Temperature Source Axillary Temperature Mode Fahrenheit Temperature, Fahrenheit 97.2 Deg F 01/05/2019 7:00 EDT Systolic Blood Pressure 105 mmHg Diastolic Blood Pressure 72 mmHg Mean Arterial Pressure (MAP)-BMDI 82 Heart Rate Monitored 124 bpm HI Respiratory Rate 14 Breaths/Min Oxygen Saturation 100.00 % 01/05/2019 6:30 EDT Systolic Blood Pressure 143 mmHg HI Diastolic Blood Pressure 89 mmHg Mean Arterial Pressure (MAP)-BMDI 110 Heart Rate Monitored 124 bpm HI Respiratory Rate 16 Breaths/Min Oxygen Saturation 100.00 % 01/05/2019 6:00 EDT Systolic Blood Pressure 148 mmHg HI Diastolic Blood Pressure 91 mmHg HI Mean Arterial Pressure (MAP)-BMDI 115 Heart Rate Monitored 126 bpm HI Respiratory Rate 13 Breaths/Min LOW Oxygen Saturation 100.00 % 01/05/2019 5:30 EDT Systolic Blood Pressure 113 mmHg Diastolic Blood Pressure 74 mmHg Mean Arterial Pressure (MAP)-BMDI 89 Heart Rate Monitored 121 bpm HI Respiratory Rate 15 Breaths/Min Oxygen Saturation 100.00 % 01/05/2019 5:00 EDT Systolic Blood Pressure 114 mmHg Diastolic Blood Pressure 76 mmHg Mean Arterial Pressure (MAP)-BMDI 90 Heart Rate Monitored 125 bpm HI Respiratory Rate 14 Breaths/Min Oxygen Saturation 100.00 % 01/05/2019 4:30 EDT Systolic Blood Pressure 103 mmHg Diastolic Blood Pressure 68 mmHg Mean Arterial Pressure (MAP)-BMDI 80 Heart Rate Monitored 127 bpm HI Respiratory Rate 15 Breaths/Min Oxygen Saturation 100.00 % 01/05/2019 4:00 EDT Systolic Blood Pressure 130 mmHg Diastolic Blood Pressure 77 mmHg Mean Arterial Pressure (MAP)-BMDI 98 Temperature Source Axillary Temperature Mode Fahrenheit Temperature, Fahrenheit 98.4 Deg F Clinical Temperature, C 36.9 Deg C Heart Rate Monitored 122 bpm HI Respiratory Rate 18 Breaths/Min Oxygen Saturation 100.00 % Oxygen Therapy Mode Nasal cannula Oxygen Flow Rate 2 Liter/Min 01/05/2019 3:30 EDT Systolic Blood Pressure 155 mmHg HI Diastolic Blood Pressure 92 mmHg HI Mean Arterial Pressure (MAP)-BMDI 118 Heart Rate Monitored 133 bpm HI Respiratory Rate 27 Breaths/Min HI Oxygen Saturation 100.00 % 01/05/2019 3:00 EDT Systolic Blood Pressure 171 mmHg HI Diastolic Blood Pressure 95 mmHg HI Mean Arterial Pressure (MAP)-BMDI 127 Heart Rate Monitored 132 bpm HI Respiratory Rate 14 Breaths/Min Oxygen Saturation 100.00 % 01/05/2019 2:30 EDT Systolic Blood Pressure 118 mmHg Diastolic Blood Pressure 78 mmHg Mean Arterial Pressure (MAP)-BMDI 94 Heart Rate Monitored 121 bpm HI Respiratory Rate 14 Breaths/Min Oxygen Saturation 100.00 % 01/05/2019 2:00 EDT Systolic Blood Pressure 113 mmHg Diastolic Blood Pressure 80 mmHg Mean Arterial Pressure (MAP)-BMDI 91 Heart Rate Monitored 124 bpm HI Respiratory Rate 15 Breaths/Min Oxygen Saturation 100.00 % 01/05/2019 1:30 EDT Systolic Blood Pressure 106 mmHg Diastolic Blood Pressure 71 mmHg Mean Arterial Pressure (MAP)-BMDI 84 Heart Rate Monitored 129 bpm HI Respiratory Rate 17 Breaths/Min Oxygen Saturation 100.00 % 01/05/2019 1:00 EDT Systolic Blood Pressure 139 mmHg Diastolic Blood Pressure 90 mmHg Mean Arterial Pressure (MAP)-BMDI 111 Heart Rate Monitored 136 bpm HI Respiratory Rate 14 Breaths/Min Oxygen Saturation 100.00 % 01/05/2019 0:30 EDT Systolic Blood Pressure 150 mmHg HI Diastolic Blood Pressure 97 mmHg HI Mean Arterial Pressure (MAP)-BMDI 117 Heart Rate Monitored 133 bpm HI Respiratory Rate 31 Breaths/Min HI Oxygen Saturation 100.00 % 01/05/2019 0:11 EDT Heart Rate Monitored 135 bpm HI 01/05/2019 0:06 EDT Heart Rate Monitored 132 bpm HI Respiratory Rate 22 Breaths/Min HI Oxygen Saturation 100.00 % Oxygen Therapy Mode Nasal cannula Oxygen Flow Rate 2 Liter/Min 01/05/2019 0:00 EDT Systolic Blood Pressure 146 mmHg HI Diastolic Blood Pressure 97 mmHg HI Mean Arterial Pressure (MAP)-BMDI 116 Temperature Source Axillary Temperature Mode Fahrenheit Temperature, Fahrenheit 98.8 Deg F Clinical Temperature, C 37.1 Deg C , Measurements from flowsheet : Measurements 01/05/2019 8:00 EDT Height Source Chart Height Entry Format [place] Height/Length, [place] (ft) 5 ft Height/Length [place] 7 Inch CLINICALHEIGHT 170.18 cm Routine Weight Source Bed scale Routine Weight Entry Format Metric Routine Weight, Kilograms 74.9 kg Routine Weight Calculation 74.9 kg Body Mass Index (BMI), Routine 25.86 kg/m2 Body Surface Area (BSA), Routine 1.86 m2 , Vitals Signs (last 24 hrs) Last Charted Minimum Maximum Temp 98.4 (JAN 06 05:08) 98.4 (JAN 06 05:08) 99.2 (JAN 05 20:30) Mon HR 91 (JAN 06 07:40) 73 (JAN 06 05:15) 134 (JAN 05 23:30) Resp Rate 20 (JAN 06 07:40) L 11 (JAN 05 16:00) H 43 (JAN 05 23:30) SBP 103 (JAN 06 07:40) L 85 (JAN 06 07:30) H 161 (JAN 05 23:30) DBP L 59 (JAN 06 07:40) L 6 (JAN 05 20:00) H 97 (JAN 05 09:00) MAP 86 (JAN 06 06:00) 71 (JAN 06 00:30) 124 (JAN 05 20:00) SpO2 94.00 (JAN 06 07:40) L 89.00 (JAN 06 03:00) 100.00 (JAN 05 09:00) General: No acute distress, Drowsy but oriented X4. Eye: Pupils are equal, round and reactive to light, Extraocular movements are intact, Normal conjunctiva. HENT: Normocephalic. Neck: No carotid bruit. Respiratory: Lungs are clear to auscultation, Breath sounds are equal, On NC. Cardiovascular: Normal rate, Regular rhythm. Musculoskeletal: Normal range of motion. Integumentary: Warm, Diaphoretic. Neurologic: Oriented, Normal sensory, Normal motor function, Cranial Nerves II-XII are grossly intact, Generalized weakness. Psychiatric: Cooperative, Appropriate mood & affect. Results Review General results Today's results 01/06/2019 4:00 EDT Sodium Level 141 mmol/L Potassium Level 3.3 mmol/L LOW Chloride Level 105 mmol/L Carbon Dioxide Level 28 mmol/L Anion Gap 11 Glucose Level 87 mg/dL Blood Urea Nitrogen 27 mg/dL HI Creatinine Level 0.95 mg/dL eGFR >60 mL/min/1.73m2 eGFR NonAfrican >60 mL/min/1.73m2 Bun/Creatinine 28.4 HI Calcium Level 7.5 mg/dL LOW Protein Total 5.9 Gram/dL LOW Albumin Level 2.8 Gram/dL LOW Globulin 3.1 Gram/dL A/G Ratio 0.9 LOW Bilirubin Total 0.4 mg/dL Alk Phos 39 Units/Liter AST 33 Units/Liter ALT 33 Units/Liter WBC 3.1 K/uL LOW RBC 2.34 Million/uL LOW Hgb 7.8 Gram/dL LOW Hct 23.0 % LOW MCV 98.3 fL HI MCH 33.3 pg HI MCHC 33.9 Gram/dL Platelet Count 69 K/uL LOW MPV 9.4 fL Immature Plt Fraction 3.1 % RDW 13.7 % Neut % 71.9 % HI Neut # 2.20 K/uL Lymph % 18.0 % LOW Lymph # 0.55 K/uL LOW [place] % 8.8 % [place] # 0.27 K/uL Eos % 0.7 % LOW Eos # 0.02 K/uL LOW Baso % 0.3 % Baso # 0.01 K/uL Slide Review No IG# 0 x10(3)/uL IG% 0 % * Final Report * Reason For Exam Seizure, new, etoh/drug related, nontraumatic;Other (Please Specify) REPORT MRI of the brain without contrast INDICATION: Seizure TECHNIQUE: Multiplanar multisequence noncontrast MRI imaging of the brain was performed. FINDINGS: There is no evidence of intracranial hemorrhage, focal mass lesion, or acute ischemia. The ventricles are midline and symmetric. No suspicious parenchymal abnormalities are identified. The expected intracranial flow voids are present. IMPRESSION: Normal MRI of the brain. Signature Line Final Electroencephalogram DATE OF STUDY: ELECTROENCEPHALOGRAM REPORT REFERRING PHYSICIAN: Not mentioned here. BRIEF HISTORY: Ming Mills is a 53-year-old, with seizure-like spells and alcohol abuse. He is currently on CIWA protocol and it seems on benzodiazepines for that. DESCRIPTION OF ELECTROENCEPHALOGRAM: This is a routine 19 channel adult EEG performed in hospital setting. EEG was performed. The patient was lethargic and sleepy. Hyperventilation could not be performed. Photic stimulation was attempted as activating procedure. Record began, patient awake, eyes closed. Dominant posterior background consisted of about up to 9 Hz activity with faster beta frequencies in anterior-posterior gradient. Hyperventilation could not be performed. Photic stimulation produced some driving response. Throughout the patient's record, patient was sleepy and lethargic. No definite epileptiform discharges or significant asymmetries noted. IMPRESSION: This is an essentially normal electroencephalogram. High beta frequencies in posterior background rhythm are most likely related to medication like benzodiazepines. Clinical correlation is strongly suggested. Impression and Plan Diagnosis 1. Seizure - Likely related to heavy alcohol abuse and/or alcohol withdrawal. Will continue Keppra. Orders 1. Seizure precautions. 2. Continue Keppra 3. Continue supportive care per medical team. . 4. Treat withdrawal per alcohol withdrawal protocol. 5. Patient will need to see Neurology outpatient, 4-6 weeks after discharge. 6. Will order thorough vitamin lab work related to history of alcoholism. Will follow test results and patient's progress. . Critical Care Time: 30 minutes.. Assessment and Plan: Orders PowerOrders Laboratory: Vitamin D 25 Hydroxy (Order): Specimen Type: Blood, AM Draw collect, 01/07/2019 4:00 EDT, 1-Time, Stop: 01/07/2019 4:00 EDT, Nurse Collect Folate Level (Order): Specimen Type: Blood, AM Draw collect, 01/07/2019 4:00 EDT, 1-Time, Stop: 01/07/2019 4:00 EDT, Nurse Collect Vitamin B-1, Whole Blood, Sendout (Order): Specimen Type: Blood, AM Draw collect, 01/07/2019 4:00 EDT, 1-Time, Stop: 01/07/2019 4:00 EDT, Nurse Collect Vitamin B-6, Sendout (Order): Specimen Type: Blood, AM Draw collect, 01/07/2019 4:00 EDT, 1-Time, Stop: 01/07/2019 4:00 EDT, Nurse Collect Vitamin B12 Level (Order): Specimen Type: Blood, AM Draw collect, 01/07/2019 4:00 EDT, 1-Time, Stop: 01/07/2019 4:00 EDT, Nurse Collect. PowerOrders Patient Care: Discharge Follow Up Instructions (Order): Start: 01/06/2019 8:56 EDT, Follow-up with Neurology 4-6 weeks after discharge [phone]. . documented in this encounter Plan of Treatment Not on file documented as of this encounter Visit Diagnoses Not on filedocumented in this encounter
--- OUTSIDE RECORDS SUMMARY | 2024-10-15 09:11 | XMS_ITS | Encounter Summary ---
Author Organization [facility] Address [address] [place] [address] Care Team Providers Care Iv Technician Name Role Phone Unavailable Primary Care Provider Unavailabl e Encounter Details Date Type Department Care Team (Late st Contact Info) Description 01/08/2019 Transcribed Document [facility] [place] Family Medicine [address] [place] [address] ProviderMary Kate MD [address] [place] [address] Social History Tobacco Use Types Packs/Day Years Used Date Smoking Tobacco: Never Assessed Sex and Gender Information Value Date Recorded Sex Assigned at Not on file Legal Sex Male 5:22 PM CDT Gender Identity Not on file Sexual Orientation Not on file documented as of this encounter Miscellaneous Notes * Cerner Conversion Note - Historical ProviderMD - 01/08/2019 2:00 AM CDT Hospital Laboratory Technician Details Entered On: 01/08/2019 3:45 EDT Performed On: 01/08/2019 2:00 EDT by GIOVANNI NATARAJAN, RN Order Details Transport Mode Order Detail : Bed (including specialty) Isolation Precautions Order Detail : Standard Precautions Order Detail : N/A IV Order Detail : 1 Oxygen Order Detail : 1 Nurse Collect Order Detail : 0 Lift/Transfer : Minimal Central Line Order Detail : No Room Service : Needs Assistance Arterial Line : No GIOVANNI NATARAJAN, SHANELL - 01/08/2019 3:45 EDT documented in this encounter Plan of Treatment Not on file documented as of this encounter Visit Diagnoses Not on filedocumented in this encounter
--- OUTSIDE RECORDS SUMMARY | 2024-10-15 09:11 | XMS_ITS | Encounter Summary ---
Author Organization [employer] [facility] Address [address] [place] [address] Care Team Providers Care Asphalt Distributor Tender Name Role Phone Unavailable Primary Care Provider Unavailabl e Encounter Details Date Type Department Care Team (Late st Contact Info) Description 01/07/2019 Transcribed Document [facility] [place] Family Medicine [address] [place] [address] ProviderMary Kate MD [address] [place] [address] Social History Tobacco Use Types Packs/Day Years Used Date Smoking Tobacco: Never Assessed Sex and Gender Information Value Date Recorded Sex Assigned at Not on file Legal Sex Male 5:22 PM CDT Gender Identity Not on file Sexual Orientation Not on file documented as of this encounter Miscellaneous Notes * Cerner Conversion Note - Historical ProviderMD - 01/07/2019 12:40 PM CDT Clinical Programmer Details Entered On: 01/07/2019 14:40 EDT Performed On: 01/07/2019 12:40 EDT by Margarita Santamaria Rn Order Details [...] : No Margarita Santamaria, Moisés - 01/07/2019 14:40 EDT documented in this encounter Plan of Treatment Not on file documented as of this encounter Visit Diagnoses Not on filedocumented in this encounter
--- OUTSIDE RECORDS SUMMARY | 2024-10-15 09:11 | XMS_ITS | Encounter Summary ---
Author Organization [facility] Address [address] [place] [address] Care Team Providers Care Agricultural Purchasing Agent Name Role Phone Unavailable Primary Care Provider Unavailabl e Encounter Details Date Type Department Care Team (Late st Contact Info) Description 01/05/2019 Transcribed Document [facility] [place] Family Medicine [address] [place] [address] ProviderMary Kate MD [address] [place] [address] Social History Tobacco Use Types Packs/Day Years Used Date Smoking Tobacco: Never Assessed Sex and Gender Information Value Date Recorded Sex Assigned at Not on file Legal Sex Male 5:22 PM CDT Gender Identity Not on file Sexual Orientation Not on file documented as of this encounter Miscellaneous Notes * Cerner Conversion Note - Mary Kate Cardenas MD - 01/05/2019 8:34 AM CDT Patient: MING MILLS Age: 53 years Sex: Male : 1965 Associated Diagnoses: None Author: RAZIA LANTIGUA MD-ADEN Basic Information Source of history: Self. Referral source: ASHLEY MAGANA MD. History limitation: None. Chief Complaint Coffee ground emesis. History of Present Illness Dr Magana has asked us to see this patient for complaints of coffee ground emesis. This patient was brought here from [facility] with 2 days of nausea and vomiting. He has a history of heartburn and reflux that he takes esomeprazole for and has done well. He has no recent history of pain, weight loss, , nausea, or vomiting. He started with vomiting of coffee ground material at home. He does have a history of ETOH abuse and prior seizure activity related to withdrawal. He reported to the outside ER that he had a seizure prior to presentation. He has a history of Mobic use at home as well. When he presented to this facility an NG was placed, nursing reports lavage last evening did not produce blood. He has dark material in the canister but no blood in the tubing. Neuro is seeing him and plans EEG and MRI today for evaluation of seizure activity. He had an EGD at [facility] in the last 6 months, reports pending. Per Dr Mcclellan's note he had no varices. Histories Past Medical History: Active Alcohol abuse (30533309) Depression (691008988) GERD - Gastro-esophageal reflux disease (1398760412) Hiatal hernia (958555922) HTN - Hypertension (6621658263) Hyperlipidemia (13629287) Procedure history: egd. Social History Social & Psychosocial Habits Alcohol 12/24/2017 Alcohol Use History, Social Habits Yes Number of Drinks per Day 5 Date/Time of Last Drink 12/24/2017 Alcohol Use in Last Twelve Months Yes Alcohol Use Frequency Daily Alcohol Use Comment pt states he drinks 4-5 glasses of vodka per day . Family History: NO GI pathology Health Status Allergies: Allergies (2) Active Reaction [...] inhalation solution: 3 mL, Nebulized Inhalation, RT_Q6H Lopressor: 25 mg, Oral, Q6H, PRN: Hypertension [...] 2 Gram, 4 mL, 100 mL/Hr, IntraVENous, [id number] pantoprazole 40 mg + Sodium Chloride 0.9% [...] list: All Problems Hypertension / SNOMED CT 6204953358 / Confirmed Hyperlipidemia / SNOMED CT 48162002 / Confirmed History of obstructive sleep apnea / IMO [id number] / Confirmed Hiatal hernia / SNOMED CT 510365563 / Confirmed Acid reflux / SNOMED CT 354147137 / Confirmed Depression / SNOMED CT 77889971 / Confirmed Alcoholism / SNOMED CT 72915351 / Confirmed Canceled: No Chronic Problems / Cerner NKP Review of Systems Constitutional: No fever, No [...] system review is negative Physical Examination VS/Measurements Measurements from flowsheet : Height and Weight 01/04/2019 16:44 EDT Height Source Chart Height Entry Format Pratt Height/Length, MACEDONIAN (ft) 5 ft Height/Length MACEDONIAN 7 Inch CLINICALHEIGHT 170.18 cm [place] Body Weight 65 kg Weight Source Bed scale Weight Entry Format Pratt Weight Scottish lb 164.8 lb CLINICALWEIGHT 74.91 kg Body Surface Area (BSA) 1.86 m2 Body Mass Index 25.9 kg/m2 HI , Vitals Signs (last 24 hrs) Last Charted Minimum Maximum Temp 98.4 (JAN 05 04:00) 98.4 (JAN 05 04:00) 98.1 (JAN 04 20:00) Mon HR 118 (SEP 16 08:23) 118 (DEC 16 08:23) 159 (DEC 15 21:30) Resp Rate 14 (DEC 16 08:23) L 13 (DEC 16 06:00) H 31 (DEC 16 00:30) SBP H 143 (DEC 16 06:30) 94 (DEC 15 22:00) H 171 (DEC 16 03:00) DBP 89 (DEC 16 06:30) 64 (DEC 15 22:00) H 101 (DEC 15 17:15) MAP 110 (DEC 16 06:30) 73 (DEC 15 22:00) 127 (DEC 16 03:00) SpO2 100.00 (DEC 16 08:23) L 68.00 (DEC 15 20:15) 100.00 (DEC 15 17:24) General: No acute distress. Appearance: Well nourished. Eye: Pupils are equal, round and reactive to light, Extraocular movements are intact, Normal conjunctiva. Sclera: Both eyes, Within normal limits. HENT: Normocephalic, Normal hearing, Oral mucosa is moist, NG in place with brown fluid in the suction canister. Nose: Both nostrils, Within normal limits, Patent. Mouth: pink. Neck: Supple, Non-tender, No carotid bruit, No jugular venous distention. Respiratory: Lungs are clear to auscultation, Respirations are non-labored, Breath sounds are equal. Pattern: Regular. Cardiovascular: Regular rhythm, No murmur, No gallop, Tachycardia, No edema, Bilat SCD's. Arterial pulses: Bilateral, Dorsalis pedis, Within normal limits. Gastrointestinal: Soft, Non-tender, Non-distended, Normal bowel sounds, No organomegaly. Abdomen: Liver ( Within normal limits ). Lymphatics: Lymphatic exam: Bilateral, Cervical chain, Within normal limits. Musculoskeletal: Normal range of motion, Normal strength, No tenderness, No deformity. Integumentary: Warm, Dry, [place], No rash. Integumentary exam: Face, Chest, Arm, Abdomen, Leg. Neurologic: Alert, Oriented, No focal deficits. Orientation: To person, To place, To time. Psychiatric: Cooperative, He is [place]. Review / Management Results review: Labs (Last four charted values) WBC H 10.4 (DEC 15) HB L 11.5 (DEC 16) L 12.7 (SEP 15) HCT L 32.9 (SEP 16) L 35.5 (SEP 15) Plt L 125 (SEP 15) Na L 133 (SEP 16) L 129 (SEP 15) K 3.7 (SEP 16) 4.2 (SEP 15) Cl L 92 (SEP 16) L 84 (SEP 15) CO2 29 (SEP 16) 27 (SEP 15) BUN H 55 (SEP 16) H 61 (SEP 15) Cr H 1.92 (SEP 16) H 2.53 (SEP 15) Glu R H 129 (SEP 16) H 167 (SEP 15) Ca L 7.6 (SEP 16) L 8.0 (SEP 15) Lactic 1.6 (SEP 16) PT 10.0 (SEP 16) INR 1.0 (SEP 16) PTT L 24.4 (SEP 15) AST H 45 (SEP 16) H 46 (SEP 15) ALT 51 (SEP 16) 62 (SEP 15) ALK P 50 (SEP 16) 62 (SEP 15) T Bili 0.5 (SEP 16) 0.6 (SEP 15) PTN 7.2 (SEP 16) 7.7 (SEP 15) ALB 3.4 (SEP 16) 3.7 (SEP 15) Troponin H 0.048 (SEP 16) H 0.076 (SEP 15) . Impression and Plan Hematemesis. I have personally interviewed the patient, performed the physical examination and formulated a treatment plan. No further bleeding since admission. We are awaiting the EGD report from [facility] 6 months ago. Patient undergoing both EEG and MRI today for evaluation of seizures. We will defer EGD until patient cleared by neurology. Will follow. documented in this encounter Plan of Treatment Not on file documented as of this encounter Visit Diagnoses Not on filedocumented in this encounter
--- OUTSIDE RECORDS SUMMARY | 2024-10-15 09:11 | XMS_ITS | Encounter Summary ---
Author Organization [employer] [facility] Address [address] [place] [address] Care Team Providers Care Chainstitch Felled Seam Operator Name Role Phone Unavailable Primary Care Provider Unavailabl e Encounter Details Date Type Department Care Team (Late st Contact Info) Description 01/04/2019 Transcribed Document [facility] Radiology [address] [place] [address] Akshat Magana MD [address] [place] [address] Social History Tobacco Use Types Packs/Day Years Used Date Smoking Tobacco: Never Assessed Sex and Gender Information Value Date Recorded Sex Assigned at Not on file Legal Sex Male 5:22 PM CDT Gender Identity Not on file Sexual Orientation Not on file documented as of this encounter Miscellaneous Notes * Cerner Conversion Note - Akshat Magana MD - 01/04/2019 6:47 PM EDT Patient: MING MILLS Age: 53 Years Sex: Male : 1965 Chief Complaint Call withdraw Alcohol withdrawal Coffee ground emesis Primary Care Provider JUAN MIGUEL OROZCO RN History of Present Illness 53-year-old gentleman appears much older than the stated age presents to [facility] in [facility] with 2 day history of nausea and vomiting. Artery and yesterday at about 4:30 when he vomited and he states that he's vomited about every hour since then. He admits to drinking half a gallon of vodka every 4 days. He also states that he has been diagnosed with seizures from alcohol use and that he had one last night and earlier this morning before going to the hospital. At the hospital he was found to be tremulous. His last alcoholic beverage was yesterday. Apparently he was at the [place] about one year ago and had to be brought over to [facility] because of seizures. He was given a rally bag, and Valium at the outside facility. His heart rate was 150. This evening he denies any fevers or chills. No chest pain palpitations. He does appear anxious mild shaking and does appear to be in alcohol withdrawal at least the early stages of it. The patient has a rag on his forehead is tachycardic on property assessment monitor in the ICU Review of Systems Constitutional: [No fevers, chills, sweats] positive for sweats alcohol withdrawal significant anxiety and shaking Eye: [No recent visual problems, eye discharge, eye pain, redness] HEENT: [No ear pain, nasal congestion, sore throat, voice changes] Respiratory: [No shortness of breath, cough, pain on breathing, sputum production] Cardiovascular: [No Chest pain, palpitations, syncope, shortness of breath while laying flat] Gastrointestinal: [No nausea, vomiting, diarrhea, constipation] Genitourinary: [No hematuria, dysuria, incontinence, lesions on genitalia] Jaron/Lymph: [Negative for bruising tendency, swollen lymph glands, nosebleeds, history of anticoagulation] Endocrine: [Negative for excessive thirst, excessive hunger, excessive urination, heat or cold intolerance] Musculoskeletal: [No back pain, neck pain, joint pain, muscle pain, decreased range of motion] Integumentary: [No rash, pruritus, abrasions, lesions] Neurologic: [No weakness, numbness, frequent headaches, tremors, blackouts] alcohol withdrawal, tremors, anxiety Psychiatric: [No depression, mood changes, hallucinations] positive for anxiety Vital Signs HR: 132(Monitored) RR: 27 BP: 132/101 SpO2: 100.00% Oxygen Settings (Last) Oxygen Therapy Mode: Nasal cannula (01/04/19 17:40:00) Oxygen Flow Rate: 4 Liter/Min (01/04/19 17:40:00) Physical Exam Temperature of 97.0??F, heart rate of 150, 5 feet 7 inches, 72 kg, 99% on 2 L, respiratory rate of 22, blood pressure 109/82. General: [Alert and oriented, well nourished, significant distress distress]. Appears older than stated age has appearance of someone he drinks large amounts of alcohol Neurologic: [Awake, alert, and oriented X3, CN II-XII intact]. [place], anxious Eye: [PERRL, EOMI, normal conjuctiva]. HENT: [Normocephalic, clear tympanic membranes, normal hearing, moist oral mucosa, no scleral icterus, no sinus tenderness]. Neck: [Supple, non-tender, no carotid bruits, no JVD, no lymphadenopathy]. Lungs: [Clear to auscultation and percussion, non-labored respiration]. Heart: [Normal rate, regular rhythm, no murmur, gallop or edema]. Abdomen: [Soft, non-tender, non-distended, normal bowel sounds, no masses]. Musculoskeletal: [Normal range of motion and strength, no tenderness or swelling]. Skin: [Skin is warm, dry and pink, no rashes or lesions]. Psychiatric: [Cooperative, appropriate mood and affect]. Hanks anxious and shaking. Assessment/Plan Obvious alcohol withdrawal and tremulous very anxious. -heart Rate of 150 -Given Valium 5 mg at outside facility as well as a rally bag there -Resume rally bag daily -Call protocol started. Asked nurse to go and give patient IV Ativan stat Acute upper GI bleed coffee ground emesis -hemoGlobin 15.5 -deHydrated with acute renal failure -Serial hemoglobin checks, transfuse as needed -V Protonix started at outside facility. Continue Protonix drip Seizure disorder. Possibly related to heavy alcohol abuse -Admitted December 2017 with similar episode -Start Ativan now and as needed -EEG ordered -Consult neurology Acute renal failure HTN -Secondary to hypovolemia, nausea vomiting -creat 0.25 December 2017 increased to 3.6 -IV fluid resuscitation Hyponatremia hypovolemic -Alcohol abuse -120 -Rally bag followed by normal saline Hypertension. Coreg 6 mg twice a -Lisinopril 20 mg daily hold for acute renal failure Dyslipidemia. Hold simvastatin and is nothing by mouth with renal failure. Anxiety. Venlafaxine filled on December 21 Full code. Patient states his next of kin is his father. He states he want his father to make decisions for him if he cannot make decisions for himself 65 minutes spent on history and physical exam of this critical care patient transferred from [facility] in [facility] had a long conversation with the ER doctor there as well as her transfer center before the patient even got here. Unfortunately he does have acute GI bleed as well as acute renal failure, obvious alcohol withdrawal, as well as what appears to be seizure disorder. Interestingly he states that he was started on some medication for seizures by [facility] a month or 2 ago but he doesn't know the doctor's name or the medication that was started and nothing is obvious on the pharmacy list that we imported to our system. Gone ahead and ordered an EEG and consult neurology for the morning. Ordered: acetaminophen, 650 mg, Oral, Tab, Q4H, PRN for Pain (Mild 1-3), Routine, Start 01/04/19 17:19:00 EDT albuterol-ipratropium, 3 mL, Nebulized Inhalation, Inh, RT_Q6H, Routine, Start 01/04/19 17:19:00 EDT bisacodyl, 5 mg, Oral, EC Tab, Daily, PRN for Constipation, Routine, Start 01/04/19 17:19:00 EDT cloNIDine, 0.1 mg, Oral, Tab, Q6H, PRN for Other (See Comment), Routine, Start 01/04/19 17:42:00 EDT docusate, 100 mg, Oral, Cap, BID, Routine, Start 01/04/19 21:00:00 EDT folic acid, 1 mg, Oral, Tab, Daily, order duration: 3 Time(s), Routine, Start 01/05/19 9:00:00 EDT, Stop 01/07/19 9:00:00 EDT haloperidol, 2 mg, IntraMuscular, Inj, Q4H, PRN for Agitation, Routine, Start 01/04/19 17:42:00 EDT labetalol, 20 mg, IV Push, Inj, Q1H, PRN for Other (See Comment), Routine, Start 01/04/19 17:42:00 EDT LORazepam, 4 mg, IV Push, Inj, Q30Min, PRN for Other (See Comment), Routine, Start 01/04/19 17:42:00 EDT LORazepam, 3 mg, Oral, Tab, Q30Min, PRN for Other (See Comment), Routine, Start 01/04/19 17:42:00 EDT LORazepam, 2 mg, IV Push, Inj, Q30Min, PRN for Other (See Comment), Routine, Start 01/04/19 17:42:00 EDT LORazepam, 4 mg, Oral, Tab, Q30Min, PRN for Other (See Comment), Routine, Start 01/04/19 17:42:00 EDT LORazepam, 3 mg, IV Push, Inj, Q30Min, PRN for Other (See Comment), Routine, Start 01/04/19 17:42:00 EDT LORazepam, 1 mg, Oral, Tab, Q30Min, PRN for Other (See Comment), Routine, Start 01/04/19 17:42:00 EDT LORazepam, 2 mg, Oral, Tab, Q30Min, PRN for Other (See Comment), Routine, Start 01/04/19 17:42:00 EDT LORazepam, 1 mg, IV Push, Inj, Q30Min, PRN for Other (See Comment), Routine, Start 01/04/19 17:42:00 EDT magnesium sulfate 2 Gram + thiamine 100 mg + multivitamin 10 mL + Sodium Chloride 0.9% intravenous, IntraVENous, Inj, [id number], Administer over 10.1 Hour(s), order duration: 3 Day(s), Routine, Start 01/05/19 9:00:00 EDT, Stop 01/07/19 9:00:00 EDT, 100 mL/Hr metoprolol, 25 mg, Oral, Tab, Q6H, PRN for Hypertension, Routine, Start 01/04/19 17:42:00 EDT ondansetron, 4 mg, Oral, Tab, Q4H, PRN for Nausea/Vomiting, Routine, Start 01/04/19 17:42:00 EDT ondansetron, 4 mg, IV Push, Inj, Q4H, PRN for Nausea/Vomiting, Routine, Start 01/04/19 17:19:00 EDT pantoprazole 80 mg + Sodium Chloride 0.9% intravenous solution 250 mL, 250 mL, Bag Volume (mL) = 250, Rate = 25 mL/Hr, IntraVENous, start date 01/04/19 17:44:00 EDT, Routine polyethylene glycol 3350, 17 Gram, Oral, Powder, Daily, PRN for Constipation, Routine, Start 01/04/19 17:19:00 EDT Sodium Chloride 0.9% intravenous solution 3,000 mL, 3,000 mL, Bag Volume (mL) = 3,000, Rate = 175 mL/Hr, IntraVENous, start date 01/04/19 17:19:00 EDT, Routine temazepam, 15 mg, Oral, Cap, At Bedtime, PRN for Sleep, Routine, Start 01/04/19 17:19:00 EDT Admit to Inpatient Alcohol Level Ambulate Blood Gas Arterial (ABG) CIWA Score Assessment CIWA Score Assessment CIWA Score Assessment CK Creatine Kinase CK Creatine Kinase CKMB CKMB CMP Comprehensive Metabolic Panel CMP Comprehensive Metabolic Panel Consult to Case Management Consult to Physician Consult to Physician Consult to Physician Consult to Spiritual Care CR Chest 1 Vw Portable Culture Blood Culture Blood Diabetes Education (Nursing) Drug Screen Urine 7 DVT VTE Prophylaxis Education ECG ECG Electroencephalogram Facility Protocol Hemoglobin and Hematocrit Hepatic Function Panel Incentive Spirometry (Nursing) Intake and Output Magnesium Level Magnesium Level May Shower Notify Provider Notify Provider Vital Signs NPO (immediate) OT Evaluation and Treatment Phosphorus Level Phosphorus Level PT Evaluation and Treatment PT/INR Prothrombin Time PT/INR Prothrombin Time Pulse Oximetry Spot Check (Nursing) Resuscitation Status Saline Lock Insert Seizure Precautions Sequential Compression Device Troponin I Ultra Troponin I Ultra TSH Thyroid Stimulating Hormone Urinalysis without Microscopic Vital Signs Weight (Routine) VTE Prophylaxis - Medical Sequential Compression Device Start: 01/04/19 17:19:00 EDT, Bilateral, Length: Knee High, While patient is in bed, Continuous Order (AKSHAT MAGANA MD) Problem List/Past Medical History Ongoing Acid reflux Alcoholism Depression Hiatal hernia Hyperlipidemia Hypertension Historical No qualifying data All related seizure Procedure/Surgical History egd. Home Medications (11) Active carvedilol 6.25 mg [...] 37.5 mg = 1 Tab, Oral, BID Allergies No Known Medication Allergies Social History Alcohol Alcohol Use History Yes. # Drinks/Day: 5. Date/Time of Last Drink: 12/24/2017. Use in Last 12 Months: Yes. Alcohol Use Frequency Daily. Alcohol Use Comment pt states he drinks 4-5 glasses of vodka per day . She admits to drinking half a gallon of vodka every 4 days. He states he never smoked or do drugs He is but has a stepdaughter. He states his next of kin is his father is currently not at the bedside. Family History Patient's mother is living and healthy in her mid 70s. Patient's father is living and history of a heart stent a year or 2 ago per the patient. Diagnostic Results White blood cell count of 11.5, hemoglobin 15, platelets 173. Sodium of 120, BUN of 61, creatinine of 3.6. Troponin negative. CK of 175 with a normal range of less than 100, 21 up to 232. Alcohol level of 42 Total bilirubin of 0.9, AST of 55. Additional Documentation Code Status Start: 01/04/19 17:19:00 EDT, Full Code, Continuous Order documented in this encounter Plan of Treatment Not on file documented as of this encounter Visit Diagnoses Not on filedocumented in this encounter
--- OUTSIDE RECORDS SUMMARY | 2024-10-15 09:11 | XMS_ITS | Encounter Summary ---
Author Organization [employer] [facility] Address [address] [place] [address] Care Team Providers Care Ceramic Tiler Name Role Phone Unavailable Primary Care Provider Unavailabl e Encounter Details Date Type Department Care Team (Late st Contact Info) Description 01/08/2019 Transcribed Document [facility] [place] [address] [place] [address] ProviderMary Kate MD [address] [place] [address] Social History Tobacco Use Types Packs/Day Years Used Date Smoking Tobacco: Never Assessed Sex and Gender Information Value Date Recorded Sex Assigned at Not on file Legal Sex Male 5:22 PM CDT Gender Identity Not on file Sexual Orientation Not on file documented as of this encounter Miscellaneous Notes * Cerner Conversion Note - Historical ProviderMD - 01/08/2019 11:02 AM CDT Patient: MING DOUGLAS Age: 53 years Sex: Male : 1965 Associated Diagnoses: None Author: ROSIO SANTOYO PA Patient to go home today. I have given his information to the office and they will contact him next week to set up the two month follow up EGD. I left Protonix 40mg BID in the discharge plan and spoke with the patient about his GI medications changes and he verbalized understanding of this. documented in this encounter Plan of Treatment Not on file documented as of this encounter Visit Diagnoses Not on filedocumented in this encounter
--- OUTSIDE RECORDS SUMMARY | 2024-10-15 09:11 | XMS_ITS | Encounter Summary ---
Author Organization [employer] [facility] [email or web address] Address [address] [place] [address] Care Team Providers Care Junior Bookkeeper Name Role Phone Unavailable Primary Care Provider Unavailabl e Encounter Details Date Type Department Care Team (Late st Contact Info) Description 01/08/2019 Transcribed Document [facility] [place] Family Medicine [address] [place] [address] ProviderMary Kate MD [address] [place] [address] Social History Tobacco Use Types Packs/Day Years Used Date Smoking Tobacco: Never Assessed Sex and Gender Information Value Date Recorded Sex Assigned at Not on file Legal Sex Male 5:22 PM CDT Gender Identity Not on file Sexual Orientation Not on file documented as of this encounter Miscellaneous Notes * Cerner Conversion Note - Mary Kate Cardenas MD - 01/08/2019 3:19 PM CDT Patient Education Materials Follows: High-Protein and High-Calorie Diet Eating high-protein and high-calorie foods can help you to gain weight, heal after an injury, and recover after an illness or surgery. What is my plan? The specific amount of daily protein and calories you need depends on: ??? Your body weight. ??? The reason this diet is recommended for you. Generally, a high-protein, high-calorie diet involves: ??? Eating 250?500 extra calories each day. ??? Making sure that 10?35% of your daily calories come from protein. [...] foods? Grains Pasta. Quick breads. Muffins. Pancakes. Suisf-ch-yye cereal. Vegetables Vegetables cooked in oil or [...] foods in my diet? Add whole milk, ryow-coc-asck, or heavy cream to cereal, pudding, soup, [...] 04/08/2006 Document Revised: 09/13/2016 Document Reviewed: 09/21/2014 [employer] Interactive Patient Education ? 2018 [employer] Mental and Behavioral Health Recovering From Addiction Addiction is a complex [...] be able to find financial assistance through zlo-hbb-uppxml organizations or with local government-based resources. If you are taking medicines, you may be able to get the generic form, which may be less expensive than brand-name medicine. Some makers of prescription medicines also offer help to patients who cannot afford the medicines that they need. Follow these instructions at home: ??? Take hrxb-xfn-vnvuewt and prescription medicines only as told by [...] 08/23/2017 Document Revised: 08/23/2017 Document Reviewed: 08/23/2017 [employer] Interactive Patient Education ? 2019 [employer] Alcohol Use Disorder Alcohol use disorder is [...] symptoms? Symptoms of this condition include: ??? Drinking?more than you want to. ??? Drinking for [...] you learn how to handle cravings. ??? Medicines.?Medicines can help treat alcohol use disorder by: [...] Follow these instructions at home: ??? Take gcsx-cgr-naazzed and prescription medicines only as told by [...] of beer, 5 oz of wine, or 1? oz of hard liquor. ??? If you [...] 05/16/2005 Document Revised: 01/03/2017 Document Reviewed: 01/03/2017 [employer] Interactive Patient Education ? 2019 [employer] Alcohol Withdrawal Syndrome Alcohol withdrawal syndrome [...] Seizure. The following symptoms may get worse 24?48 hours after a person has decreased or [...] If you experience hallucinations, they usually begin 12?24 hours after a change in drinking patterns. [...] Follow these instructions at home: ??? Take eljo-yms-nhrgiaz and prescription medicines (including vitamin supplements) only [...] 01/16/2006 Document Revised: 12/13/2017 Document Reviewed: 12/13/2017 [employer] Interactive Patient Education ? 2019 [employer] Alcohol Abuse and Nutrition Alcohol abuse [...] Your health care provider or diet and underwriting support specialist (dietitian) will work with you to design a plan that can help to restore nutrients to your body and prevent the risk of complications. What is my plan? Your dietitian may develop a specific eating plan that is based on your condition and any other problems that you have. An eating plan will commonly include: ??? A balanced diet. ? Grains: 6?8 oz (170?227 g) a day. Examples of 1 oz of whole grains include 1 cup of whole-wheat cereal, ? cup of brown rice, or 1 slice of whole-wheat bread. ? Vegetables: 2?3 cups a day. Examples of 1 cup of vegetables include 2 medium carrots, 1 large tomato, or 2 stalks of celery. ? Fruits: 1?2 cups a day. Examples of 1 cup of fruit include 1 large banana, 1 small apple, 8 large strawberries, or 1 large orange. ? Meat and other protein: 5?6 oz (142?170 g) a day. ? A cut of meat or fish that is the size of a deck of cards is about 3?4 oz. ? Foods that provide 1 oz of protein include 1 egg, ? cup of nuts or seeds, or 1 tablespoon (16 g) of peanut butter. ? Dairy: 2?3 cups a day. Examples of 1 cup of dairy include 8 oz (230 mL) of milk, 8 oz (230 g) of yogurt, or 1? oz (44 g) of natural cheese. ??? Vitamin and mineral supplements. What are tips for following this plan? Eat frequent meals and snacks. Try to eat 5?6 small meals each day. ??? Take vitamin or mineral supplements as recommended by your dietitian. ??? If you are malnourished or if your dietitian recommends it: ? You may follow a high-protein, high-calorie diet. This may include: ? 2,000?3,000 calories (kilocalories) a day. ? 70?100 g (grams) of protein a day. ? [...] and broth. Try to drink at least 48?64 oz (1.5?2 L) of water a day. ??? Include [...] 5 oz (148 mL) of wine, or 1? oz (44 mL) of hard liquor. ??? [...] 01/31/2006 Document Revised: 12/24/2017 Document Reviewed: 12/24/2017 [employer] Interactive Patient Education ? 2019 [employer] documented in this encounter Plan of Treatment Not on file documented as of this encounter Visit Diagnoses Not on filedocumented in this encounter
--- OUTSIDE RECORDS SUMMARY | 2024-10-15 09:11 | XMS_ITS | Encounter Summary ---
Author Organization [employer] [facility] Address [address] [place] [address] Care Team Providers Care Health Claims Examiner Name Role Phone Unavailable Primary Care Provider Unavailabl e Encounter Details Date Type Department Care Team (Late st Contact Info) Description 01/07/2019 Transcribed Document [facility] [place] [address] [place] [address] ProviderMary Kate MD [address] [place] [address] Social History Tobacco Use Types Packs/Day Years Used Date Smoking Tobacco: Never Assessed Sex and Gender Information Value Date Recorded Sex Assigned at Not on file Legal Sex Male 5:22 PM CDT Gender Identity Not on file Sexual Orientation Not on file documented as of this encounter Miscellaneous Notes * Cerner Conversion Note - Historical ProviderMD - 01/07/2019 9:45 AM CDT Valuables and Belongings Entered On: 01/07/2019 12:30 EDT Performed On: 01/07/2019 9:45 EDT by Margarita Santamaria Rn Valuables and Belongings Valuables and Belongings : Clothing Clothing : Common streetwear Clothing Disposition : Bedside, With patient Margarita Santamaria Rn - 01/07/2019 12:30 EDT documented in this encounter Plan of Treatment Not on file documented as of this encounter Visit Diagnoses Not on filedocumented in this encounter
--- OUTSIDE RECORDS SUMMARY | 2024-10-15 09:11 | XMS_ITS | Encounter Summary ---
Author Organization [employer] Address [address] [place] [address] Care Team Providers Care Middle [employer] History Teacher Name Role Phone Unavailable Primary Care Provider Unavailabl e Encounter Details Date Type Department Care Team (Late st Contact Info) Description 01/08/2019 Transcribed Document [facility] [place] [address] [place] [address] ProviderMary Kate MD [address] [place] [address] Social History Tobacco Use Types Packs/Day Years Used Date Smoking Tobacco: Never Assessed Sex and Gender Information Value Date Recorded Sex Assigned at Not on file Legal Sex Male 5:22 PM CDT Gender Identity Not on file Sexual Orientation Not on file documented as of this encounter Miscellaneous Notes * Cerner Conversion Note - Historical ProviderMD - 01/08/2019 4:00 AM CDT Height and Weight, Routine Entered On: 01/08/2019 6:28 EDT Performed On: 01/08/2019 4:00 EDT by Pedro Luis Lopez Cna I Height and Weight, Routine Routine Weight Source : Standing scale Routine Weight Entry Format : [place] Routine Weight, Pounds : 155 lb Routine Weight, Ounces : 1 oz Routine Weight Calculation : 70.48 kg Height Source : Chart Height Entry Format : [place] Height, Feet : 5 ft Height, Inches : 7 Inch Clinical Height : 170.18 cm Body Surface Area (BSA), Routine : 1.82 m2 Body Mass Index (BMI), Routine : 24.34 kg/m2 Pedro Luis Lopez Cna I - 01/08/2019 6:28 EDT Electronically signed by Chava [facility] Conversion Plating Machine Operator Cerner at 08/08/2022 11:07 PM CDT documented in this encounter Plan of Treatment Not on file documented as of this encounter Visit Diagnoses Not on filedocumented in this encounter
--- OUTSIDE RECORDS SUMMARY | 2024-10-15 09:11 | XMS_ITS | Encounter Summary ---
Author Organization [employer] Address [address] [place] [address] Care Team Providers Care Wharf Tender Name Role Phone Unavailable Primary Care Provider Unavailabl e Encounter Details Date Type Department Care Team (Late st Contact Info) Description 01/05/2019 Transcribed Document [facility] [place] [address] [place] [address] ProviderMary Kate MD [address] [place] [address] Social History Tobacco Use Types Packs/Day Years Used Date Smoking Tobacco: Never Assessed Sex and Gender Information Value Date Recorded Sex Assigned at Not on file Legal Sex Male 5:22 PM CDT Gender Identity Not on file Sexual Orientation Not on file documented as of this encounter Miscellaneous Notes * Cerner Conversion Note - Mary Kate ProviderMD - 01/05/2019 4:25 PM CDT DATE OF STUDY: ELECTROENCEPHALOGRAM REPORT REFERRING PHYSICIAN: Not mentioned here. BRIEF HISTORY: Prosper Douglas is a 53-year-old, with seizure-like spells and [...] like benzodiazepines. Clinical correlation is strongly suggested. Pam Moran M.D. Dict: 01/05/2019 16:25:44 Trans: 01/05/2019 16:53:19 CC1: Pam Moran M.D. Electronically signed by Jaron Larsen Conversion Internal Communications Manager Cerner at 08/08/2022 11:27 PM CDT documented in this encounter Plan of Treatment Not on file documented as of this encounter Visit Diagnoses Not on filedocumented in this encounter
--- OUTSIDE RECORDS SUMMARY | 2024-10-15 09:11 | XMS_ITS | Encounter Summary ---
Author Organization [facility] Address [address] [place] [address] Care Team Providers Care Docket Clerk Name Role Phone Unavailable Primary Care Provider Unavailabl e Encounter Details Date Type Department Care Team (Late st Contact Info) Description 01/07/2019 Transcribed Document [facility] [place] Family Medicine [address] [place] [address] ProviderMary Kate MD [address] [place] [address] Social History Tobacco Use Types Packs/Day Years Used Date Smoking Tobacco: Never Assessed Sex and Gender Information Value Date Recorded Sex Assigned at Not on file Legal Sex Male 5:22 PM CDT Gender Identity Not on file Sexual Orientation Not on file documented as of this encounter Miscellaneous Notes * Cerner Conversion Note - Historical ProviderMD - 01/07/2019 9:47 AM CDT Event Note Entered On: 01/07/2019 9:50 EDT Performed On: 01/07/2019 9:47 EDT by Margarita Santamaria Rn Event Note Event Date/Time : 01/07/2019 9:30 EDT Event Details : Other: Consult for case management Description of Event : Dr. Elise assesse patient at bedside and determined that he was improved sufficiently to transfer to telemetry. Case management consulted for ETOH Abuse treatment. Case management informed during rounds of consult and reason. Margarita Santamaria, Moisés - 01/07/2019 9:47 EDT documented in this encounter Plan of Treatment Not on file documented as of this encounter Visit Diagnoses Not on filedocumented in this encounter
--- OUTSIDE RECORDS SUMMARY | 2024-10-15 09:11 | XMS_ITS | Encounter Summary ---
Author Organization [facility] [facility] Address [address] [place] [address] Care Team Providers Care Cabin Equipment Supervisor Name Role Phone Unavailable Primary Care Provider Unavailabl e Encounter Details Date Type Department Care Team (Late st Contact Info) Description 01/04/2019 Transcribed Document [facility] [place] Medicine [address] [place], [place] [id number] ProviderMary Kate MD [address] [place] [address] Social History Tobacco Use Types Packs/Day Years Used Date Smoking Tobacco: Never Assessed Sex and Gender Information Value Date Recorded Sex Assigned at Not on file Legal Sex Male 5:22 PM CDT Gender Identity Not on file Sexual Orientation Not on file documented as of this encounter Miscellaneous Notes * Cerner Conversion Note - Historical ProviderMD - 01/04/2019 5:19 PM CDT Education-(VTE) / (DVT) Entered On: 01/04/2019 18:22 EDT Performed On: 01/04/2019 17:19 EDT by ASHLEIGH WADE, Rn Teaching/Learning Assessment Barriers To Learning : None evident ASHLEIGH WADE, Moisés - 01/04/2019 18:22 EDT documented in this encounter Plan of Treatment Not on file documented as of this encounter Visit Diagnoses Not on filedocumented in this encounter
--- OUTSIDE RECORDS SUMMARY | 2024-10-15 09:11 | XMS_ITS | Encounter Summary ---
Author Organization [employer] [facility] Address [address] [place] [address] Care Team Providers Care Mobile Home Servicer Name Role Phone Unavailable Primary Care Provider Unavailabl e Encounter Details Date Type Department Care Team (Late st Contact Info) Description 01/07/2019 Transcribed Document [facility] [place] [address] [place] [address] ProviderMary Kate MD [address] [place] [address] Social History Tobacco Use Types Packs/Day Years Used Date Smoking Tobacco: Never Assessed Sex and Gender Information Value Date Recorded Sex Assigned at Not on file Legal Sex Male 5:22 PM CDT Gender Identity Not on file Sexual Orientation Not on file documented as of this encounter Miscellaneous Notes * Cermarcial Conversion Note - Historical ProviderMD - 01/07/2019 9:35 AM CDT Spiritual Care Short Form Entered On: 01/07/2019 10:07 EDT Performed On: 01/07/2019 9:35 EDT by VICKIE LINDO Chaplain-Non Cert General Information, Spiritual Care Spiritual Care Referred by : Interdisciplinary Team rounds Reason for Visit : Follow Up Ministry Provided to : Patient Intervention/Comment/Summary Points : Prosper is a 53-year-old patient who continues to receive care in the ICU. He is expected to transfer to the telemetry unit today. VICKIE LINDO Chaplain-Non Cert - 01/07/2019 10:06 EDT documented in this encounter Plan of Treatment Not on file documented as of this encounter Visit Diagnoses Not on filedocumented in this encounter
--- OUTSIDE RECORDS SUMMARY | 2024-10-15 09:11 | XMS_ITS | Encounter Summary ---
Author Organization [employer] Address [address] [place] [address] Care Team Providers Care Bullion Weigher Name Role Phone Unavailable Primary Care Provider Unavailabl e Encounter Details Date Type Department Care Team (Late st Contact Info) Description 01/05/2019 Transcribed Document [facility] [place] [address] [place] [address] ProviderMary Kate MD [address] [place] [address] Social History Tobacco Use Types Packs/Day Years Used Date Smoking Tobacco: Never Assessed Sex and Gender Information Value Date Recorded Sex Assigned at Not on file Legal Sex Male 5:22 PM CDT Gender Identity Not on file Sexual Orientation Not on file documented as of this encounter Miscellaneous Notes * Cerner Conversion Note - Mary Kate ProviderMD - 01/05/2019 9:24 AM CDT Patient: MING DOUGLAS Age: 53 years Sex: Male : 1965 Associated Diagnoses: None Author: JAYLENE PRIDE, Neurology Basic Information Source of history: Self. Chief Complaint Seizure History of Present Illness 01/05/19 Neurology Consult - Mr. Ming Douglas presented to the ED with 2 day [...] seizure activity over night or this morning. Review of Systems Unable to obtain, patient sleeping. Health Status Allergies: Allergic Reactions (Selected) No [...] 2 Gram, 4 mL, 100 mL/Hr, IntraVENous, [id number] pantoprazole 40 mg + Sodium Chloride 0.9% [...] Oral, BID, 60 Tab, 0 Refill(s), Medications (28) Active Scheduled: (7) albuterol-ipratropium inh [...] 1,000 mL 2 Gram 4 mL, IntraVENous, [id number] metoclopramide 10 mg/2 mL inj 10 mg [...] list: All Problems Alcoholism / SNOMED CT 98962869 / Confirmed Depression / SNOMED CT 39779711 / Confirmed Acid reflux / SNOMED CT 015722116 / Confirmed Hiatal hernia / SNOMED CT 463295351 / Confirmed History of obstructive sleep apnea / IMO [id number] / Confirmed Hyperlipidemia / SNOMED CT 89838700 / Confirmed Hypertension / SNOMED CT 2978968032 / Confirmed, Active Problems (7) Acid reflux Alcoholism Depression Hiatal hernia History of obstructive sleep apnea Hyperlipidemia Hypertension Histories Family History: No family history items have been selected or recorded., Unable to obtain, patient sleeping Procedure history: egd. Social History Social & Psychosocial Habits Alcohol 12/24/2017 Alcohol Use History, Social Habits Yes Number of Drinks per Day 5 Date/Time of Last Drink 12/24/2017 Alcohol Use in Last Twelve Months Yes Alcohol Use Frequency Daily Alcohol Use Comment pt states he drinks 4-5 glasses of vodka per day . Physical Examination VS/Measurements Vitals Signs (last 24 [...] 64 (JAN 04 22:00) H 101 (JAN 04 17:15) MAP 110 (JAN 05 06:30) 73 (JAN 04 22:00) 127 (JAN 05 03:00) SpO2 100.00 (JAN 05 08:23) L 68.00 (JAN 04 20:15) 100.00 (JAN 04 17:24) General: Sleeping . Eye: Pupils are equal, round and reactive to light. HENT: Normocephalic. Neck: Supple. Respiratory: Respirations are non-labored. Cardiovascular: ST. Gastrointestinal: Soft. Musculoskeletal: Sleeping, no jerking or tremors noted. Integumentary: Warm, Dry. Neurologic: Sleeping, not easily arousable (received Ativan prior to my arrival), no visible jerks or tremors. Limited exam.. Review / Management Results review: Labs (Last four charted values) WBC 4.9 (DEC 16) H 10.4 (DEC 15) HB L 10.7 (DEC 16) L 11.5 (DEC 16) L 12.7 (SEP 15) HCT L 30.9 (SEP 16) L 32.9 (SEP 16) L 35.5 (SEP 15) Plt L 88 (SEP 16) L 125 (SEP 15) Na L 133 [...] 16) 3.7 (SEP 15) Troponin H 0.048 (DEC 16) H 0.076 (SEP 15) . LABS REVIEWED. Impression and Plan Diagnosis 1. Seizure - Likely related to heavy alcohol abuse and/or alcohol withdrawal. Will start Keppra. Will get MRI brain and EEG. . Orders 1. EEG (already ordered) and MRI brain today. . 2. Seizure precautions. . 3. Continue supportive care per medical team. . 4. Treat withdrawal per alcohol withdrawal protocol. . Will follow test results and patient's progress. . Critical Care Time: 30 minutes.. Orders PowerOrders Radiology: MRI Brain WO (Order): Routine, Transport Mode: Wheelchair, 01/05/2019 11:26 EDT, Reason: Other (Please Specify), Seizure, new, etoh/drug related, nontraumatic, Any metal in body: No, Any implated device(s): No, Patient has pacemaker: No. Electronically signed by [facility], [facility] Conversion Plasma Center Nurse Cerner at 08/08/2022 11:25 PM CDT documented in this encounter Plan of Treatment Not on file documented as of this encounter Visit Diagnoses Not on filedocumented in this encounter
--- OUTSIDE RECORDS SUMMARY | 2024-10-15 09:11 | XMS_ITS | Encounter Summary ---
Author Organization [employer] Address [address] [place] [address] Care Team Providers Care Canal Equipment Maintenance Supervisor Name Role Phone Unavailable Primary Care Provider Unavailabl e Encounter Details Date Type Department Care Team (Late st Contact Info) Description 01/07/2019 Transcribed Document [facility] Radiology [address] [place] [address] Akshat Magana MD [address] [place], [place] [id number] Social History Tobacco Use Types Packs/Day Years Used Date Smoking Tobacco: Never Assessed Sex and Gender Information Value Date Recorded Sex Assigned at Not on file Legal Sex Male 5:22 PM CDT Gender Identity Not on file Sexual Orientation Not on file documented as of this encounter Miscellaneous Notes * Cerner Conversion Note - Akshat Magana MD - 01/07/2019 8:46 AM EDT Patient: MNIG MILLS Age: 53 years Sex: Male : 1965 Associated Diagnoses: None Author: AKSHAT MAGANA MD Subjective Chief complaint. Saturday, January 05, 2019. Patient required multiple doses of Ativan overnight and she is oriented to name, date of , age, 2019, [facility] however he's definitely agitated and confused. An obvious alcohol withdrawal. No nausea vomiting. No chest pain palpitations. No shortness breath coughing wheezing. No additional episodes of coffee-ground emesis awaiting evaluation by GI later this morning for possible EGD. Saturday, 2018. Patient actually appears a lot more comfortable today compared to yesterday less confused. He denies any fevers or chills. No nausea or vomiting. He states he just had his EGD but was not told any results yet. No dysuria hematuria. His creatinine is better to 0.94 1.9 to yesterday as he's been resuscitated. Hemoglobin has dropped which I told him is going from 11 down to 7.8 but that this could be a GI bleed as well as dilutional drop because of IV fluids. Daily rally bag. Ativan requirement has dropped down. Saturday, January 07, 2019. Patient feels much better this morning compared to yesterday. No nausea vomiting. No diarrhea constipation. Heart rate was 120 but he denies any palpitations or chest pain. Interestingly he states that he was set up to go to [facility] for alcohol rehabilitation on Saturday and he was hoping to be able to get to go to one of these places which I strongly encouraged him. Apparently I discussed with the outpatient case manager in [facility] will see people and then try to get him set up with the appropriate placement options. She denies any chest pain or palpitations this morning. No dysuria or hematuria. No shortness breath coughing or wheezing. Also no additional seizures since he's been in the hospital. Review of Systems Constitutional: Weakness, Decreased activity, [...] Medication Allergies None Documented Problem list: Medical Alcohol abuse / SNOMED CT 21877481 / Confirmed Alcoholism / SNOMED CT 91365942 / Confirmed Depression / SNOMED CT 058459905 / Confirmed GERD - Gastro-esophageal reflux disease / SNOMED CT 8826384918 / Confirmed Hiatal hernia / SNOMED CT 805141777 / Confirmed History of obstructive sleep apnea / IMO 26550159 / Confirmed HTN - Hypertension / SNOMED CT 2482977589 / Confirmed Hyperlipidemia / SNOMED CT 78732830 / Confirmed, Active Problems (13) Acid reflux Alcohol abuse Alcoholism Depression Depression GERD - Gastro-esophageal reflux disease Hiatal hernia Hiatal hernia History of obstructive sleep apnea HTN - Hypertension Hyperlipidemia Hyperlipidemia Hypertension Current medications: (Selected) Inpatient Medications [...] IV Push, Q1H, PRN: Other (See Comment) pantoprazole 40 mg + Sodium Chloride 0.9% [...] = 1 Tab, Oral, BID , Medications (26) Active Scheduled: (5) albuterol-ipratropium inh 3 mL 3 mL, Nebulized Inhalation, RT_Q6H docusate sodium 100 mg cap 100 mg 1 Cap, Oral, BID levETIRAcetam 500 mg 100 mL, IV Piggyback, Q12H metoclopramide 10 mg/2 mL inj 10 mg 2 mL, IV Push, Q6HInt oxazepam 10 mg cap 10 mg 1 Cap, Oral, TID Continuous: (2) NaCl 0.9% 3,000 mL 3,000 [...] hrs) Last Charted Minimum Maximum Temp 98.8 (SEP 18 08:00) 97.6 (SEP 18 00:00) 98.8 (DEC 18 08:00) Mon HR 88 (SEP 18 12:00) 76 (DEC 17 19:00) 130 (DEC 18 09:00) Resp Rate 18 (DEC 18 12:00) L 11 (DEC 18 02:00) H 42 (DEC 18 07:00) SBP H 146 (SEP 18 12:00) 120 (SEP 17 13:00) H 183 (DEC 18 09:00) DBP 88 (DEC 18 12:00) 60 (DEC 17 13:00) H 99 (DEC 17 20:00) MAP 112 (DEC 18 12:00) 83 (DEC 17 13:00) 127 (DEC 18 09:00) SpO2 98.00 (DEC 18 12:00) L 89.00 (DEC 18 09:00) 100.00 (JAN 06 20:30) Physical Examination VS/Measurements Vitals Signs (last 24 hrs) Last Charted Minimum Maximum Temp 98.8 (SEP 18 08:00) 97.6 (DEC 18 00:00) 98.8 (DEC 18 08:00) Mon HR 88 (DEC 18 12:00) 76 (DEC 17 19:00) 130 (DEC 18 09:00) Resp Rate 18 (DEC 18 12:00) L 11 (DEC 18 02:00) H 42 (DEC 18 07:00) SBP H 146 (SEP 18 12:00) 120 (SEP 17 13:00) H 183 (DEC 18 09:00) DBP 88 (DEC 18 12:00) 60 (DEC 17 13:00) H 99 (DEC 17 20:00) MAP 112 (DEC 18 12:00) 83 (DEC 17 13:00) 127 (DEC 18 09:00) SpO2 98.00 (DEC 18 12:00) L 89.00 (DEC 18 09:00) 100.00 ([facility] 17 20:30) General: Alert and oriented, No acute distress, Confusion and agitation and nervousness is significantly improved today. Eye: Pupils are equal, round and reactive [...] Alert, Oriented. Psychiatric: Cooperative, Appropriate mood & affect, Alcohol abuse. Review / Management Results review: Labs (Last four charted values) WBC 4.2 (SEP 18) L 3.1 (SEP 17) 4.9 (SEP 16) H 10.4 (SEP 15) HB L 8.3 (SEP 18) L 8.1 (SEP 18) L 8.4 (SEP 18) L 8.0 (SEP 17) HCT L 24.3 (SEP 18) L 24.8 (SEP 18) L 25.3 (SEP 18) L 24.6 [...] 17) H 45 (SEP 16) H 46 (DEC 15) ALT 35 (DEC 18) 33 (SEP 17) 51 (SEP 16) 62 (SEP 15) ALK P 41 (DEC 18) 39 (SEP 17) 50 (SEP 16) 62 (SEP 15) T Bili 0.4 (SEP 18) 0.4 (SEP 17) 0.5 (SEP 16) 0.6 (SEP 15) PTN L 6.0 (DEC 18) L 5.9 (DEC 17) 7.2 (SEP 16) 7.7 (DEC 15) ALB L 2.7 (DEC 18) L 2.8 (DEC 17) 3.4 (SEP 16) 3.7 (SEP 15) [...] January 04 through the morning of the -3 mg Ativan given January 05 -Serax 10 mg 3 times a day scheduled Acute upper GI bleed coffee ground emesis. Susana Ruiz tear, esophagitis NG trauma on EGD January 06 . -hemoGlobin 15.5 to 11 down to 7.8 to 8.1 -deHydrated with acute renal failure -Serial hemoglobin checks, transfuse as needed -iV Protonix started at outside facility. Continue Protonix drip -Melena in the ICU January 06 Seizure disorder. Possibly related to heavy alcohol abuse -Admitted December 2017 with similar episode -Start Ativan now and as needed -EEG ordered -Consult neurology Acute renal failure HTN -Secondary to hypovolemia, nausea vomiting -creat 0.25 December 2017 increased to 3.6 to 1.9 down to 0.9 to 0.7 -IV fluid resuscitation Hyponatremia hypovolemic -Alcohol abuse -120 to 133 to 138 -Rally bag followed by normal saline pancytopenia secondary to alcoholism, with thrombocytopenia -White blood cell count 3 up to 4 -Hemoglobin 8.1 -Platelets 69 to 84 Hypertension. Coreg 6 mg twice a day [...] hemoglobin as well as a total value. Sunday, January 06, 2019. 31 minutes spent on follow-up critical care patient in ICU setting of comments patient did have a black and tarry bowel movement today January 06. He did have an EGD apparently had this morning right before I saw him and waiting for the official report. Continue Protonix, serial IV fluids, daily rally bag. Hopefully he can be transferredout ofthe ICU tomorrow if he remains stable. Obviously biggest concern is the precipitous drop in hemoglobin from 11.5 down to 7.8 but I suspect a significant part of this drop is from his IV fluid resuscitation. We'll need to recheck and transfuse as needed. Recheck a CBC and CMP in the morning. Monday, January 07, 2019. 35 minutes spent on follow-up critical care patient is doing much better today compared to yesterday's have some pancytopenia which I suspect is from alcohol abuse. With his agitation and shaking is significantly better did not get much Ativan over the past 24 hours and so I'm going to schedule him on serax 10 mg 3 times a day. I've also talked outpatient case manager and like to have [facility] come see him get the ball rolling as far as alcohol rehabilitation. Interestingly he states he was set up to go to [facility]. The patient lives in [facility] and so hopefully he is in their network as this is his first choice but I told him up to see what [facility] can get set up for him. His pancytopenia is pretty stable white blood cell count improved from 3 up to 4, hemoglobin improved from 7.8 up to 8.1, platelets of 84 up from 69 yesterday [employer] system used. Computer program makes numerous spelling grammar mistakes. If you have any questions or concerns do not hesitate call Dr. Akshat Llamas at cell phone number [phone]. documented in this encounter Plan of Treatment Not on file documented as of this encounter Visit Diagnoses Not on filedocumented in this encounter
--- OUTSIDE RECORDS SUMMARY | 2024-10-15 09:11 | XMS_ITS | Encounter Summary ---
Author Organization [employer] Address [address] [place] [address] Care Team Providers Care Front Services Agent Name Role Phone Unavailable Primary Care Provider Unavailabl e Encounter Details Date Type Department Care Team (Late st Contact Info) Description 01/07/2019 Transcribed Document [facility] Family Medicine [address] [place] [address] ProviderMary Kate MD [address] [place] [address] Social History Tobacco Use Types Packs/Day Years Used Date Smoking Tobacco: Never Assessed Sex and Gender Information Value Date Recorded Sex Assigned at Not on file Legal Sex Male 5:22 PM CDT Gender Identity Not on file Sexual Orientation Not on file documented as of this encounter Miscellaneous Notes * Cerner Conversion Note - Historical ProviderMD - 01/07/2019 2:00 AM CDT Materials Planning Manager Details Entered On: 01/07/2019 2:09 EDT Performed On: 01/07/2019 2:00 EDT by Day Teixeira Rn Order Details Transport Mode Order Detail : Bed (including specialty) Isolation Precautions Order Detail : Standard Precautions Order Detail : N/A IV Order Detail : 1 Oxygen Order Detail : 1 Nurse Collect Order Detail : 1 Lift/Transfer : Moderate assist Central Line Order Detail : No Room Service : Appropriate Arterial Line : No Day Teixeira Rn - 01/07/2019 2:09 EDT documented in this encounter Plan of Treatment Not on file documented as of this encounter Visit Diagnoses Not on filedocumented in this encounter
--- OUTSIDE RECORDS SUMMARY | 2024-10-15 09:11 | XMS_ITS | Encounter Summary ---
Author Organization [employer] Address [address] [place] [address] Care Team Providers Care Wildlife Veterinarian Name Role Phone Unavailable Primary Care Provider Unavailabl e Encounter Details Date Type Department Care Team (Late st Contact Info) Description 01/06/2019 Transcribed Document [facility] Radiology [address] [place] [address] Akshat Magana MD [address] [place], [place] [id number] Social History Tobacco Use Types Packs/Day Years Used Date Smoking Tobacco: Never Assessed Sex and Gender Information Value Date Recorded Sex Assigned at Not on file Legal Sex Male 5:22 PM CDT Gender Identity Not on file Sexual Orientation Not on file documented as of this encounter Miscellaneous Notes * Cerner Conversion Note - Akshat Magana MD - 01/06/2019 8:29 AM EDT Patient: MING MILLS Age: 53 years Sex: Male : 1965 Associated Diagnoses: None Author: AKSHAT MAGANA MD Subjective Chief complaint. Saturday, January 05, 2019. Patient required multiple doses of Ativan overnight and she is oriented to name, date of , age, 2019, [facility] however he's definitely agitated and confused. [...] rally bag. Ativan requirement has dropped down. Review of Systems Constitutional: Weakness, Decreased activity, [...] list: Medical Alcohol abuse / SNOMED CT 17904605 / Confirmed Alcoholism / SNOMED CT 21346796 / Confirmed Depression / SNOMED CT 910894888 / Confirmed GERD - Gastro-esophageal reflux disease / SNOMED CT 4188971638 / Confirmed Hiatal hernia / SNOMED CT 819796623 / Confirmed History of obstructive sleep apnea / IMO 71440008 / Confirmed HTN - Hypertension / SNOMED CT 1451969189 / Confirmed Hyperlipidemia / SNOMED CT 89726733 / Confirmed, Active Problems (13) Acid reflux [...] 2 Gram, 4 mL, 100 mL/Hr, IntraVENous, [id number] pantoprazole 40 mg + Sodium Chloride 0.9% [...] 1,000 mL 2 Gram 4 mL, IntraVENous, [id number] metoclopramide 10 mg/2 mL inj 10 mg [...] (JAN 06 05:08) 99.2 (JAN 05 20:30) Apical HR 92 (JAN 06 09:23) 92 (JAN 06 09:23) 92 (JAN 06 09:23) Mon HR 106 (JAN 06 10:00) 73 (SEP 17 05:15) 134 (SEP 16 23:30) Resp Rate H 22 (DEC 17 10:00) L 11 (DEC 16 16:00) H 43 ([facility] 23:30) SBP 135 (DEC 17 10:00) L 85 (DEC 17 07:30) H 161 ([facility] 16 23:30) DBP 83 (DEC 17 10:00) L 6 (DEC 16 20:00) 89 ([facility] 16 13:18) MAP 103 (DEC 17 10:00) 71 ([facility] 17 00:30) 124 ([facility] 16 20:00) SpO2 95.00 ([facility] 17 10:00) L 89.00 ([facility] 17 03:00) 100.00 ([facility] 16 12:00) Physical Examination VS/Measurements Vitals Signs (last 24 hrs) Last Charted Minimum Maximum Temp 98.4 (DEC 17 05:08) 98.4 (DEC 17 05:08) 99.2 (DEC 16 20:30) Apical HR 92 (DEC 17 09:23) 92 (DEC 17 09:23) 92 (DEC 17 09:23) Mon HR 106 (DEC 17 10:00) 73 ([facility] 05:15) 134 (DEC 16 23:30) Resp Rate H 22 (DEC 17 10:00) L 11 (DEC 16 16:00) H 43 (DEC 16 23:30) SBP 135 (DEC 17 10:00) L 85 ([facility] 17 07:30) H 161 ([facility] 16 23:30) DBP 83 (DEC 17 10:00) L 6 ([facility] 16 20:00) 89 ([facility] 16 13:18) MAP 103 (DEC 17 10:00) 71 ([facility] 17 00:30) 124 ([facility] 16 20:00) SpO2 95.00 ([facility] 17 10:00) L 89.00 ([facility] 17 03:00) 100.00 ([facility] 16 12:00) , Measurements from flowsheet : Measurements 01/05/2019 8:00 EDT Height Source Chart Height Entry Format Deputy Height/Length, COMORAN (ft) 5 ft Height/Length COMORAN 7 Inch CLINICALHEIGHT 170.18 cm Routine Weight Source Bed scale Routine Weight Entry Format Metric Routine Weight, Kilograms 74.9 kg Routine Weight Calculation 74.9 kg Body Mass Index (BMI), Routine 25.86 kg/m2 Body Surface Area (BSA), Routine 1.86 m2 General: Alert and oriented, Moderate distress, Although alert and oriented to time and place E is confused and agitated and alcohol withdrawal. Much improved today. Eye: Pupils are equal, round [...] review: Labs (Last four charted values) WBC L 3.1 (SEP 17) 4.9 (SEP 16) H 10.4 (SEP 15) HB L 8.6 (SEP 17) L 7.8 (SEP 17) L 8.8 (SEP 16) L 8.7 (SEP 16) HCT L 25.7 (SEP 17) L 23.0 (SEP 17) L 25.8 (SEP 16) L 25.7 (SEP 16) Plt L 69 (SEP 17) L 88 (SEP 16) L 125 (SEP 15) Na 141 (SEP 17) L 133 (SEP 16) L 129 (SEP 15) K L 3.3 (SEP 17) 3.7 (SEP 16) 4.2 (SEP 15) Cl 105 (SEP 17) L 92 (SEP 16) L 84 (SEP 15) CO2 28 (SEP 17) 29 (SEP 16) 27 (SEP 15) BUN H 27 (SEP 17) H 55 (SEP 16) H 61 (SEP 15) Cr 0.95 (SEP 17) H 1.92 (SEP 16) H 2.53 (SEP 15) Glu R 87 (SEP 17) H 129 (SEP 16) H 167 (SEP 15) Ca L 7.5 (SEP 17) L 7.6 (SEP 16) L 8.0 (SEP 15) Lactic 1.6 (SEP 16) PT 10.0 (SEP 16) INR 1.0 (SEP 16) PTT L 24.4 (SEP 15) AST 33 (DEC 17) H 45 (SEP 16) H 46 (SEP 15) ALT 33 (DEC 17) 51 (SEP 16) 62 (SEP 15) ALK P 39 (DEC 17) 50 (SEP 16) 62 (SEP 15) T Bili 0.4 (DEC 17) 0.5 (SEP 16) 0.6 (SEP 15) PTN L 5.9 (DEC 17) 7.2 (SEP 16) 7.7 (SEP 15) ALB L 2.8 (DEC 17) 3.4 (SEP 16) 3.7 (DEC 15) Troponin H 0.048 [...] the -3 mg Ativan given January 05 Acute upper GI bleed coffee ground emesis -hemoGlobin 15.5 to 11 down to 7.8 -deHydrated with acute renal failure -Serial hemoglobin [...] to 3.6 to 1.9 down to 0.9 -IV fluid resuscitation Hyponatremia hypovolemic -Alcohol abuse [...] a CBC and CMP in the morning. [employer] dictation system used. Computer program makes numerous spelling grammar mistakes. If you have any questions or concerns do not hesitate call Dr. Akshat Llamas at cell phone number [phone]. documented in this encounter Plan of Treatment Not on file documented as of this encounter Visit Diagnoses Not on filedocumented in this encounter
--- OUTSIDE RECORDS SUMMARY | 2024-10-15 09:11 | XMS_ITS | Encounter Summary ---
Author Organization [employer] Address [address] [place] [address] Care Team Providers Care Car Dealer Name Role Phone Unavailable Primary Care Provider Unavailabl e Encounter Details Date Type Department Care Team (Late st Contact Info) Description 01/06/2019 Transcribed Document [facility] Radiology [address] [place] [id number] Akshat Elise MD [address] [place] [address] Social History Tobacco Use Types Packs/Day Years Used Date Smoking Tobacco: Never Assessed Sex and Gender Information Value Date Recorded Sex Assigned at Not on file Legal Sex Male 5:22 PM CDT Gender Identity Not on file Sexual Orientation Not on file documented as of this encounter Miscellaneous Notes * Cerner Conversion Note - Akshat Elise MD - 01/06/2019 12:43 PM EDT PLEASE MODIFY BEFORE SIGNING CLINICAL DOCUMENTATION CLARIFICATION FORM: Dear : ___Gosia_ Date: ___01/06/2019 Please exercise your independent, professional judgment in responding to the clarification form. Clinical indicators are provided on the bottom of this form for your review Please check appropriate box(s): [ ] Elevated Troponin indicating demand ischemia related to n/v [ ] Elevated Troponin indicating NSTEMI [x ] Nonspecific Elevated troponin [ ] Other diagnosis [ ] Unable to determine For continuity of documentation, please document condition throughout progress notes and discharge summary. Thank You. To be completed by CDI/Coding staff for physician review: Present Clinical Indicators - Signs / Symptoms / Labs Results and Location in Medical Record [ x ] Elevated Troponin 01/0420-Pdvj-Vzjwhqnc-0.076 01/0534-Icdu-Wuhohxgj-0.048 Present Risk Factors Results and Location in Medical Record [ x ] Alcohol withdrawal 01/04-H&P- obvious alcohol withdrawal and tremulous very anxious [ x ] Hypertension 01/04-H&P-Hypertension Present Treatments Results and Location in Medical Record [ x ] Troponin 01/04, 01/05-MD orders-Troponin [x ] Oxygen 01/04-MD orders-Oxygen CDS Signature: _Sanjay Aparicio RN, MSN, CDS Phone #: _[phone]__ Date: __01/06/2019___ This is a permanent part of the Medical Record documented in this encounter Plan of Treatment Not on file documented as of this encounter Visit Diagnoses Not on filedocumented in this encounter
--- OUTSIDE RECORDS SUMMARY | 2024-10-15 09:11 | XMS_ITS | Encounter Summary ---
Author Organization [employer] [facility] Address [address] [place] [address] Care Team Providers Care Dry Cell Tester Name Role Phone Unavailable Primary Care Provider Unavailabl e Encounter Details Date Type Department Care Team (Late st Contact Info) Description 01/08/2019 Transcribed Document [facility] Family Medicine [address] [place] [address] ProviderMary Kate MD [address] [place] [address] Social History Tobacco Use Types Packs/Day Years Used Date Smoking Tobacco: Never Assessed Sex and Gender Information Value Date Recorded Sex Assigned at Not on file Legal Sex Male 5:22 PM CDT Gender Identity Not on file Sexual Orientation Not on file documented as of this encounter Miscellaneous Notes * Cerner Conversion Note - Historical ProviderMD - 01/08/2019 5:00 AM CDT Chart Check - Review Order Profile Entered On: 01/08/2019 3:45 EDT Performed On: 01/08/2019 5:00 EDT by GIOVANNI NATARAJAN, RN Chart Check Powerplans Initiated/Discontinued as Appropriate : Yes All Active Orders Reviewed : Yes GIOVANNI NATARAJAN RN - 01/08/2019 3:45 EDT documented in this encounter Plan of Treatment Not on file documented as of this encounter Visit Diagnoses Not on filedocumented in this encounter
--- OUTSIDE RECORDS SUMMARY | 2024-10-15 09:11 | XMS_ITS | Encounter Summary ---
Author Organization [employer] [facility] Address [address] [place] [address] Care Team Providers Care Furnace Room Supervisor Name Role Phone Unavailable Primary Care Provider Unavailabl e Encounter Details Date Type Department Care Team (Late st Contact Info) Description 01/04/2019 Transcribed Document [facility] [place] [address] [place] [address] ProviderMary Kate MD [address] [place] [address] Social History Tobacco Use Types Packs/Day Years Used Date Smoking Tobacco: Never Assessed Sex and Gender Information Value Date Recorded Sex Assigned at Not on file Legal Sex Male 5:22 PM CDT Gender Identity Not on file Sexual Orientation Not on file documented as of this encounter Miscellaneous Notes * Cerner Conversion Note - Mary Kate ProviderMD - 01/04/2019 5:19 PM CDT Evaluation, Occupational Therapy Entered On: 01/05/2019 11:32 EDT Performed On: 01/05/2019 10:32 EDT by CHANTELL WIN OTR/Viet General Information, OT Visit Type, OT : Initial evaluation Patient Orders : Order Date Order Ordering MD 01/04/2019 17:19 OT Evaluation and Treatment Ordered By: ASHLEY MAGANA MD Active Diagnoses : 01/05/2019 12:00 Alcohol dependence with withdrawal, unspecified Therapy Diagnosis, OT : Generalized weakness Onset of Problem, OT : 01/04/2019 EDT Admission Date : 01/04/2019 16:47 Personal Devices : Personal Devices No Devices Recorded Assistive Devices : Assistive Devices No Devices Recorded Precautions in Place : Fall prevention measures, Fall prevention measures, high risk General Information Comment, OT : Alcohol w/d; pt is questionable historian. Accuracy of information provided by pt may be somewhat questionable. CHANTELL WIN OTR/Viet - 01/05/2019 11:23 EDT General Status Patient Received Status : Supine in bed, Bed alarm activated Treatment Start Time : 01/05/2019 10:32 EDT Patient Left Status : Supine in bed, Bed alarm activated, RN/PCT informed, All needs met and within reach, Other: RN present RN/PCT Informed Comment : RN ok'ed to see Treatment End Time : 01/05/2019 10:55 EDT Treatment Time : 23 Minute(s) Actual Treatment Time : 23 Minute(s) CHANTELL WIN OTR/L - 01/05/2019 11:23 EDT History and Environment, OT Living Situation, Therapy : Home Patient Lives With : Alone Persons Assisting Patient at Home : Alone Professional Skilled Services : None Persons Providing Information : Patient Home Equipment, Therapy : None Home Setup : One story Stairs : Yes Stair Location(s) : Outside, Other: Outside Stairs, Number of Steps : 1 CHANTELL WIN OTR/L - 01/05/2019 11:23 EDT Prior LOF Bathing, OT : Independent Prior LOF Bed Mobility : Independent Prior LOF Upper Body Dressing, OT : Independent Prior LOF Lower Body Dressing, OT : Independent Prior LOF Toileting : Independent Prior LOF Transfer : Independent Prior LOF Grooming, OT : Independent CHANETLL WIN OTR/L - 01/05/2019 11:23 EDT Upper Extremity Upper Extremity Dominance : Right Right UE Active ROM : Impaired Right UE Passive ROM : WFL Right UE Strength : Impaired Left UE Active ROM : Impaired Left UE Passive ROM : WFL Left UE Strength : Impaired Right Hand AROM Comment : WFL Left Hand AROM Comment : WFL Right UE Strength Comment : Grossly 3-/5 Left UE Strength Comment : Grossly 3-/5 Hand Western Philosophy Professor Test : Mod decreased bilaterally Fine Motor Coordination Impaired : No CHANTELL WIN OTR/L - 01/05/2019 11:23 EDT Functional Mobility Mobility Grid Supine to Sit : Rehab Moderate assistance (Comment: x 2 [CHANTELL WIN OTR/L 01/05/2019 11:23 EDT] ) Sit to Supine : Rehab Moderate assistance (Comment: x 2 [CHANTELL WIN OTR/L 01/05/2019 11:23 EDT] ) CHANTELL WIN OTR/L - 01/05/2019 11:23 EDT Functional MobilityComment : Pt not able to attempt standing, walking due to weakness/lethargy CHANTELL WINCHRISTA/Viet 01/05/2019 11:23 EDT Activity Tolerance, OT Activity Comment : P act. tolerance CHANTELL WIN CHRISTAViet 01/05/2019 11:23 EDT Neurological/Sensory Light Touch Response : Intact CHANTELL WIN CHRISTA/Viet 01/05/2019 11:23 EDT Cognition Assessment, OT Orientation : Oriented x 4 Cognition Assessment, OT : Impaired Cognition Impaired, OT : Prompting, standby CHANTELL WINCHRISTAViet 01/05/2019 11:23 EDT Education OT Occupational Therapy Education Grid Activity of Daily Living Training : Verbalizes understanding Functional Mobility Training : Verbalizes understanding, Returns demonstration Home Safety : Verbalizes understanding Precaution/Contraindication : Verbalizes understanding Role of Occupational Therapy : Verbalizes understanding CHANTELL WINCHRISTAViet 01/05/2019 11:23 EDT Teaching/Learning Assessment Barriers To Learning : Acuity of Illness, Desire/Motivation Individuals Taught : Patient Readiness to Learn : Cooperative Baseline Knowledge of Topic : Limited Readiness to Learn : Explanation Learning Style Preferences Patient : None CHANTELL WINCHRISTAViet 01/05/2019 11:23 EDT Indication Assessment, OT Occupational Therapy Indicated : Yes Problem List, OT : Impaired, bed mobility, Impaired, activities daily living, Impaired, cognition, Impaired, endurance tolerance, Impaired functional mobility, Impaired, muscle tone, Impaired, standing balance, Impaired, strength, Impaired, transfers Potential Barriers, OT : Acuity of illness, Cognitive deficit, Desire/Motivation, Fatigue, Knowledge/education, Pain, Patient compliance Rehabilitation Potential, OT : Guarded Potential Guarded Due to, OT : History of alcoholism/w/d; co-morbidities; questionable level of motivation CHANTELL WINCHRISTAViet 01/05/2019 11:23 EDT Plan of Care, OT OT Tx Plan/Goals Established w Patient : Yes OT Frequency Rehab : Other: 3-5x/wk Other OT Treatment Provided This Date : Self care: pt instruction provided re: ADL performance, safety, home safety Eval=8 min Self care=15 min OT Duration Rehab : Fourteen days OT Treatments Planned : Activities of daily living, Caregiver training, Functional mobility training, Neuromuscular reeducation, Safety education, Therapeutic activities, Therapeutic exercises CHANTELL WINCHRISTA/Viet 01/05/2019 11:23 EDT Mcc Goals, OT Other LTG Grid Goal #1 Goal #2 Goal #3 Goal : Perform UB ADL with min A Perform LB ADL with mod A Perform ADL transfer with min A Date to Meet : 01/19/2019 EDT 01/19/2019 EDT 01/19/2019 EDT Goal Status : Initial goal Initial goal Initial goal CHANTELL WIN OTR/Viet - 01/05/2019 11:23 EDT CHANTELL WIN OTR/Viet - 01/05/2019 11:23 EDT CHANTELL WIN OTR/Viet - 01/05/2019 11:23 EDT Pain Assessment Pain Scaled Used : 0-10 Pain scale Pain Score Pre-Intervention : 0 CHANTELL WIN OTR/Viet - 01/05/2019 11:23 EDT Image 1 - Images currently included in the form version of this document have not been included in the text rendition version of the form. [facility] OT Charges OT Selfcare/Hm Mgmt Ea 15 Min : 1 OT Eval Moderate Complexity : 1 CHANTELL WIN OTR/Viet - 01/05/2019 11:23 EDT documented in this encounter Plan of Treatment Not on file documented as of this encounter Visit Diagnoses Not on filedocumented in this encounter
--- OUTSIDE RECORDS SUMMARY | 2024-10-15 09:11 | XMS_ITS | Encounter Summary ---
Author Organization [employer] [facility] Address [address] [place] [address] Care Team Providers Care Running Instructor Name Role Phone Unavailable Primary Care Provider Unavailabl e Encounter Details Date Type Department Care Team (Late st Contact Info) Description 01/04/2019 Transcribed Document [facility] [place] Medicine [address] [place] [address] ProviderMary Kate MD [address] [place] [address] Social History Tobacco Use Types Packs/Day Years Used Date Smoking Tobacco: Never Assessed Sex and Gender Information Value Date Recorded Sex Assigned at Not on file Legal Sex Male 5:22 PM CDT Gender Identity Not on file Sexual Orientation Not on file documented as of this encounter Miscellaneous Notes * Cerner Conversion Note - Historical ProviderMD - 01/04/2019 5:19 PM CDT Education-Diabetes Topics Entered On: 01/04/2019 18:22 EDT Performed On: 01/04/2019 17:19 EDT by ASHLEIGH WADE, Rn Teaching/Learning Assessment Barriers To Learning : None evident ASHLEIGH WADE, Moisés - 01/04/2019 18:22 EDT documented in this encounter Plan of Treatment Not on file documented as of this encounter Visit Diagnoses Not on filedocumented in this encounter
--- OUTSIDE RECORDS SUMMARY | 2024-10-15 09:11 | XMS_ITS | Encounter Summary ---
Author Organization [employer] [facility] Address [address] [place] [address] Care Team Providers Care Wheel Truing Machine Tender Name Role Phone Unavailable Primary Care Provider Unavailabl e Encounter Details Date Type Department Care Team (Late st Contact Info) Description 01/04/2019 Transcribed Document [facility] [place] [address] [place] [address] ProviderMary Kate MD [address] [place] [address] Social History Tobacco Use Types Packs/Day Years Used Date Smoking Tobacco: Never Assessed Sex and Gender Information Value Date Recorded Sex Assigned at Not on file Legal Sex Male 5:22 PM CDT Gender Identity Not on file Sexual Orientation Not on file documented as of this encounter Miscellaneous Notes * Cerner Conversion Note - Mary Kate ProviderMD - 01/04/2019 7:53 PM CDT DATE OF CONSULTATION: HISTORY OF PRESENT ILLNESS: This is a 53-year-old gentleman with history of known alcohol use, multiple admissions at [facility] for alcohol withdrawal syndrome. He was discharged a few days ago. Alcohol withdrawal with seizure, acute kidney injury, hyponatremia, , hypomagnesemia, hypertension, mildly abnormal LFTs. He had CT head and EEG and all the workup. He had EGD done six months ago, no varices, had some esophagitis at that time according to the patient. He has been drinking. His alcohol level is 44. He was retching every one or two hours, and was throwing up in spite of giving a Zofran. No NG tube. No bright red hematemesis, only coffee-grounds every time he threw up in the past. His hemoglobin is 15. His sodium 129, BUN was 61, creatinine 2.53. Alk phos normal. AST 46, a little high. ALT 62. Magnesium 2.7, phosphorus 2.8. CPK 161. CPK-MB . Troponin I is less than 1. TSH 1.1. Drug studies came back negative. Alcohol level is less than 3, yesterday, I believe 45 or so. He had a CT of head done in the past, negative. Chest x-ray has been ordered. MEDICATIONS: 1. Folic acid. 2. . 3. Oxazepam at home. 4. Carvedilol 6.25. 5. Nexium. 6. Hydrochlorothiazide. 7. Lisinopril. 8. Loratadine. 9. Meloxicam once a day. 10. Simvastatin. 11. Trazodone. 12. Venlafaxine twice a day. ALLERGIES: Not known. SURGICAL HISTORY: Head injury in the past. REVIEW OF SYSTEMS: Twelve systems reviewed. GI-harden, retching, alcohol, gastritis, and coffee-ground emesis. No NG tube. Hemoglobin 15. He has got acute kidney injury. His level was high yesterday. No abdominal pain. PHYSICAL EXAMINATION: GENERAL: Alert, awake, slightly withdrawing symptoms, anxious. VITAL SIGNS: Blood pressure stable. Heart rate is 120-130 from alcohol withdrawal. HEENT: PERRL. LUNGS: No crackles or wheezing. HEART: No murmur. ABDOMEN: Mildly distended, soft. No guarding or rebound. No peritoneal signs. HEAD OF DATA: No focal deficits. Cranial nerves intact, anxious, and appears to be withdrawing. IMPRESSION: 1. Alcohol abuse, withdrawal syndrome. 2. Coffee-ground emesis from recurrent retching. 3. Hyponatremia. 4. Alcoholic liver disease. PLAN: We will check PT, hepatitis panel. We will put an NG tube if he agrees and lavage the stomach. If any active bleeding, then we will consider endoscopy. Otherwise, put NG and monitor the hemoglobin, and NG will lavage the stomach as well as help his recurrent vomiting. We may consider giving Reglan to help the nausea and vomiting. Continue IV Protonix drip or 40 b.i.d. and depending on his lab and symptoms, EGD within 24 hours today or tomorrow, as he is withdrawing at this time. All this explained to the patient. Depending on findings, further management. Aleksey Mcclellan M.D. Dict: 01/04/2019 19:53:18 Trans: 01/05/2019 00:52:36 CC1: Aleksey Mcclellan M.D. documented in this encounter Plan of Treatment Not on file documented as of this encounter Visit Diagnoses Not on filedocumented in this encounter
--- OUTSIDE RECORDS SUMMARY | 2024-10-15 09:11 | XMS_ITS | Encounter Summary ---
Author Organization [employer] [facility] Address [address] [place] [address] Care Team Providers Care Screen And Cyclone Repairer Name Role Phone Unavailable Primary Care Provider Unavailabl e Encounter Details Date Type Department Care Team (Late st Contact Info) Description 01/07/2019 Transcribed Document [facility] [place] [address] [place] [address] ProviderMary Kate MD [address] [place] [address] Social History Tobacco Use Types Packs/Day Years Used Date Smoking Tobacco: Never Assessed Sex and Gender Information Value Date Recorded Sex Assigned at Not on file Legal Sex Male 5:22 PM CDT Gender Identity Not on file Sexual Orientation Not on file documented as of this encounter Miscellaneous Notes * Cerner Conversion Note - Mary Kate ProviderMD - 01/07/2019 6:10 PM CDT On Going Discharge Planning Entered On: 01/07/2019 18:12 EDT Performed On: 01/07/2019 18:10 EDT by JOSÉ MIGEUL OWENS Rn-Rn RadiationPaper Bag Press Operator Progress Note Discharge Arrangements : Patient Post-Acute Information Patient Name: MING DOUGLAS Gender: Male : 65 Age: 53 Years No Post-Acute Placement(s) Listed No Post-Acute Service(s) Listed No Cur[place] Referral(s) Listed Discharge Options Discussed with Patient : Outpatient services Barriers to Discharge Identified : Clinical Condition of Patient, Follow-Up appointments needed Barriers to Discharge Unresolved : Clinical Condition of Patient, Follow-Up appointments needed Referral Indicators For Complex SWK Interventions : Behavorial or psychiatric issues Is the Patient Meeting Medical Necessity : Yes Physician Agreeable to Move Forward with D/C Plan? : Yes Did you Attend Multidisciplinary Rounds? : Yes JOSÉ MIGUEL OWENS, Rn-Rn Radiation - 01/07/2019 18:10 EDT Narrative Progress Note Narrative Progress Note : Patient was about to start at [facility] but became acutely ill and went to [facility]. esophageal bleed clipped, neuro work up was unremarkable. PT and OT ordered. [facility] probably [facility] JOSÉ MIGUEL OWENS, Rn-Rn Radiation - 01/07/2019 18:10 EDT documented in this encounter Plan of Treatment Not on file documented as of this encounter Visit Diagnoses Not on filedocumented in this encounter
--- OUTSIDE RECORDS SUMMARY | 2024-10-15 09:11 | XMS_ITS | Encounter Summary ---
Author Organization [employer] [facility] Address [address] [place] [address] Care Team Providers Care Founder & Ceo Name Role Phone Unavailable Primary Care Provider Unavailabl e Encounter Details Date Type Department Care Team (Late st Contact Info) Description 01/05/2019 Transcribed Document [facility] [place] [address] [place] [address] ProviderMary Kate MD [address] [place] [address] Social History Tobacco Use Types Packs/Day Years Used Date Smoking Tobacco: Never Assessed Sex and Gender Information Value Date Recorded Sex Assigned at Not on file Legal Sex Male 5:22 PM CDT Gender Identity Not on file Sexual Orientation Not on file documented as of this encounter Miscellaneous Notes * Cerner Conversion Note - Historical ProviderMD - 01/05/2019 11:43 AM CDT UM Authorization Entered On: 01/05/2019 11:43 EDT Performed On: 01/05/2019 11:43 EDT by BRENDA DUFF Rn-Utilization Review Primary Insurance Authorization Authorization and Policy Numbers : Insurance 1 Health Plan: [employer] Medicaid Policy Number: [id number] Authorization Number: Insurance Primary Name : [place] Medicaid Authorization Status-Primary : Awaiting callback Reference Number-Primary : [id number] Authorized Service Begin Date-Primary : 01/04/2019 EDT Authorization Comments-Primary : Auth initiated on [employer]. Clinicals faxed via [employer]. Historical Authorization Comments-Primary : No Authorization Comments Found BRENDA DUFF Rn-Utilization Review - 01/05/2019 11:43 EDT documented in this encounter Plan of Treatment Not on file documented as of this encounter Visit Diagnoses Not on filedocumented in this encounter
--- OUTSIDE RECORDS SUMMARY | 2024-10-15 09:11 | XMS_ITS | Encounter Summary ---
Author Organization [employer] [facility] Address [address] [place] [address] Care Team Providers Care Barrel Header Name Role Phone Unavailable Primary Care Provider Unavailabl e Encounter Details Date Type Department Care Team (Late st Contact Info) Description 01/05/2019 Transcribed Document [facility] [place] [address] [place] [address] ProviderMary Kate MD [address] [place] [address] Social History Tobacco Use Types Packs/Day Years Used Date Smoking Tobacco: Never Assessed Sex and Gender Information Value Date Recorded Sex Assigned at Not on file Legal Sex Male 5:22 PM CDT Gender Identity Not on file Sexual Orientation Not on file documented as of this encounter Miscellaneous Notes * Cerner Conversion Note - Mary Kate Cardenas MD - 01/05/2019 3:59 PM CDT UM Authorization Entered On: 01/05/2019 15:59 EDT Performed On: 01/05/2019 15:59 EDT by LUIS SOSA RN-Utilization Review Primary Insurance Authorization Authorization and Policy Numbers : Insurance 1 Health Plan: [place] Medicaid Policy Number: [id number] Authorization Number: Insurance Primary Name : [place] Medicaid Authorization Status-Primary : Admit approved Reference Number-Primary : [id number] Authorization Number-Primary : [id number] Number of Days Authorized-Primary : 6 Authorized Service Begin Date-Primary : 01/04/2019 EDT Authorized Service End Date-Primary : 01/08/2019 EDT Authorization Comments-Primary : [place] Medicaid approved per Miguel for inpt 6 days Historical Authorization Comments-Primary : Comment 1: Auth initiated on [employer]. Clinicals faxed via [employer] (BRENDA DUFF Rn-Utilization Review 01/05/2019 11:43) LUIS SOSA RN-Utilization Review - 01/05/2019 15:59 EDT documented in this encounter Plan of Treatment Not on file documented as of this encounter Visit Diagnoses Not on filedocumented in this encounter
--- OUTSIDE RECORDS SUMMARY | 2024-10-15 09:11 | XMS_ITS | Encounter Summary ---
Author Organization [facility] [place] Address [address] [place] [address] Care Team Providers Care Senior Inspector Name Role Phone Unavailable Primary Care Provider Unavailabl e Encounter Details Date Type Department Care Team (Late st Contact Info) Description 03/04/2019 Transcribed Document [facility] [place] Medicine [address] [place], [place] [id number] ProviderMary Kate MD [address] [place], [place] [id number] Social History Tobacco Use Types Packs/Day Years Used Date Smoking Tobacco: Never Assessed Sex and Gender Information Value Date Recorded Sex Assigned at Not on file Legal Sex Male 5:22 PM CDT Gender Identity Not on file Sexual Orientation Not on file documented as of this encounter Miscellaneous Notes * Cerner Conversion Note - Mary Kate ProviderMD - 03/04/2019 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 [address] [address] LINA MING Llanos :1965 Visit Time:03/04/2019 What to do next Your Diagnosis Gastro-esophageal reflux disease with esophagitis, Gastro-esophageal reflux disease with esophagitis Instructions From Your Care Team Diet after Discharge: Resume usual diet as tolerated, Do not drink any alcoholic beverages, Fluid Restriction after Discharge: _ Activity after Discharge: _, Rest and relax today, No strenuous activity Lifting Restrictions: _ Weight Bearing: _ Bedrest: _ Driving after Discharge: Do not drive May Return to Work/School: 03/05/19 Showering/Bathing: May shower, _ Notify Provider of: Go to nearest ER if having any signs/symptoms of infection, bleeding, not able to eat or drink, trouble swallowing, not urinating like normal, extreme pain. Wound/Incision Care after Discharge: _, _ Medical Equipment for Home Use: Home Health Services: Community Services: Follow-Up Appointments Follow Up with RAZIA LANTIGUA MD-GAE When Within As needed Comments Review recommendations given, call for any concerns or questions. Where: [address] [facility] [address] [place] [address]- Medications What How Much When Instructions Next Dose pantoprazole (Protonix 40 mg oral delayed release tablet) 1 Tablet(s) Oral Every Day Duration: 30 Day(s) Take 30 to 60 minutes before eating. Take daily for 3 months. Printed Prescription carvedilol (carvedilol 6.25 mg oral tablet) 1 Tablet(s) Oral Two Times A Day folic acid (folic acid 1 mg oral tablet) 1 Tablet(s) Oral Every Day hydroCHLOROthiazide (hydroCHLOROthiazide 25 mg oral tablet) 1 Tablet(s) Oral Every Day levETIRAcetam (Keppra 500 mg oral tablet) 1 Tablet(s) Oral Two Times A Day lisinopril (lisinopril 10 mg oral tablet) 1 Tablet(s) Oral Every Day meloxicam (meloxicam 15 mg oral tablet) 1 Tablet(s) Oral Two Times A Day multivitamin (Multiple Vitamins oral capsule) 1 Capsule(s) Oral Every Day Duration: 30 Day(s) simvastatin (simvastatin 20 mg oral tablet) 1 Tablet(s) Oral At Bedtime traZODone (traZODone 50 mg oral tablet) Oral At Bedtime venlafaxine (venlafaxine 37.5 mg oral tablet) 1 Tablet(s) Oral Two Times A Day Take your medications faithfully. Do NOT skip [...] Please dispose of unused and medications per pharmacy guidance. Education Materials Hiatal Hernia A hiatal hernia occurs when [...] symptoms. ??? Medicines. These may include: ? Apjc-uyt-hyxgadc antacids. ? Medicines that make your stomach [...] ? Fatty foods, like fried foods. ? [place]iana fruits, like oranges or lemon. ? Other foods and drinks that contain acid, like orange juice or tomatoes. ? Spicy food. ? Chocolate. ??? Eat frequent small meals instead of three large meals a day. This helps prevent your stomach from getting too full. ? Eat slowly. ? Do not lie down right after eating. ? Do not eat 1???2 hours before bed. ??? Do not drink beverages with caffeine. These include cola, coffee, cocoa, and tea. ??? Do not drink alcohol. General instructions ??? Take zdix-kro-rxgeoqi and prescription medicines only as told by [...] 06/28/2004 Document Revised: 11/11/2017 Document Reviewed: 11/11/2017 [employer] Interactive Patient Education ?? 2019 [employer] Esophagitis Esophagitis is inflammation of the [...] alcohol use. ??? An infection of the esophagus. This most often occurs in people who have [...] vinegar, hot sauces, and barbecue sauce. ? Columbiana fruit juices and citrus fruits, such as oranges, boogie, and limes. ? Tomato-based foods, such as red sauce, chili, salsa, and pizza with red sauce. ? Fried and fatty foods, such as donuts, guinean fries, potato chips, and high-fat dressings. ? [...] meals. ??? Avoid eating meals during the 2???3 hours before bedtime. ??? Avoid lying down right after you eat. ??? Do not exercise right after you eat. ??? Avoid foods and drinks that seem to make your symptoms worse. General instructions ??? Pay attention to any changes in your symptoms. ??? Take zytm-nqs-xdaxood and prescription medicines only as told by [...] 05/16/2005 Document Revised: 09/13/2016 Document Reviewed: 08/03/2015 [employer] Interactive Patient Education ?? 2019 [employer]. Monitored Anesthesia Care, Care After These instructions [...] eating solid foods. General instructions ??? Take sjyy-udn-suuyilm and prescription medicines only as told by [...] 07/29/2016 Document Revised: 11/22/2017 Document Reviewed: 07/29/2016 [employer] Interactive Patient Education ?? 2019 [employer] Esophagogastroduodenoscopy, Care After Refer to this [...] 03/25/2013 Document Revised: 09/13/2016 Document Reviewed: 03/01/2016 [employer] Interactive Patient Education ?? 2019 [employer]. pantoprazole (oral/injection) (dixon TOE pra zole) Protonix What is the most important information I should know about pantoprazole? Pantoprazole can cause kidney problems. Tell your doctor if you are urinating less than usual, or if you have blood in your urine. Diarrhea may be a sign of a new infection. Call your doctor if you have diarrhea that is watery or has blood in it. Pantoprazole may cause new or worsening symptoms of lupus. Tell your doctor if you have joint pain and a skin rash on your cheeks or arms that worsens in sunlight. You may be more likely to have a broken bone while taking this medicine technician terminal and repeater or more than once per day. What is pantoprazole? Pantoprazole is a proton pump inhibitor that decreases the amount of acid produced in the stomach. Pantoprazole is used to treat erosive esophagitis (damage to the esophagus from stomach acid caused by gastroesophageal reflux disease, or GERD) in adults and children who are at least 5 years old. Pantoprazole is usually given for up to 8 weeks at a time while your esophagus heals. Pantoprazole is also used to treat Chris-Morales syndrome and other conditions involving excess stomach acid. Pantoprazole is not for immediate relief of heartburn. Pantoprazole may also be used for purposes not listed in this medication guide. What should I discuss with my healthcare provider before using pantoprazole? Heartburn can mimic early symptoms of a heart attack. Get emergency medical help if you have chest pain that spreads to your jaw or shoulder and you feel anxious or light-headed. You should not use this medicine if: ?? you also take medicine that contains rilpivirine (Edurant, Complera, Juluca, Odefsey); or ?? you are allergic to pantoprazole or similar medicines (lansoprazole, omeprazole, Nexium, Prevacid, Prilosec, and others). Tell your doctor if you have ever had: ?? low levels of magnesium in your blood; ?? lupus; or ?? osteoporosis or low bone mineral density. You may be more likely to have a broken bone in your hip, wrist, or spine while taking a proton pump inhibitor long-term or more than once per day. Talk with your doctor about ways to keep your bones healthy. It is not known whether this medicine will harm an unborn baby. Tell your doctor if you are or plan to become . You should not breast-feed while using this medicine. Pantoprazole is not approved for use by anyone younger than 5 years old. How should I use pantoprazole? Follow all directions on your prescription label and read all medication guides or instruction sheets. Use the medicine exactly as directed. Use the lowest dose for the shortest amount of time needed to treat your condition. Pantoprazole is taken by mouth (oral) or given as an infusion into a vein (injection). A healthcare provider may teach you how to properly use pantoprazole injection by yourself. Pantoprazole tablets are taken by mouth, with or without food. Pantoprazole oral granules should be taken 30 minutes before a meal. Do not crush, chew, or break the tablet. Swallow it whole. The oral granules should be mixed with applesauce or apple juice and given either by mouth or through a nasogastric (NG) tube. Read and carefully follow any Instructions for Use provided with your medicine. Ask your doctor or pharmacist if you do not understand these instructions. Use this medicine for the full prescribed length of time, even if your symptoms quickly improve. Call your doctor if your symptoms do not improve or if they get worse while you are using this medicine. This medicine can affect the results of certain medical tests. Tell any doctor who treats you that you are using pantoprazole. Pantoprazole may also affect a drug-screening urine test and you may have false results. Tell the laboratory staff that you use this medicine. Store this medicine at room temperature away from moisture, heat, and light. What happens if I miss a dose? Use the medicine as soon as you can, but skip the missed dose if it is almost time for your next dose. Do not use two doses at one time. What happens if I overdose? Seek emergency medical attention or call the Poison Help line at . What should I avoid while using pantoprazole? This medicine can cause diarrhea, which may be a sign of a new infection. If you have diarrhea that is watery or bloody, call your doctor. Do not use anti-diarrhea medicine unless your doctor tells you to. What are the possible side effects of pantoprazole? Get emergency medical help if you have signs of an allergic reaction: hives; difficulty breathing; swelling of your face, lips, tongue, or throat. Call your doctor at once if you have: ?? severe stomach pain, diarrhea that is watery or bloody; ?? sudden pain or trouble moving your hip, wrist, or back; ?? bruising or swelling where intravenous pantoprazole was injected; ?? kidney problems--urinating less than usual, blood in your urine, swelling, rapid weight gain; ?? low magnesium--dizziness, fast or irregular heart rate, tremors (shaking) or jerking muscle movements, feeling jittery, muscle cramps, muscle spasms in your hands and feet, cough or choking feeling; or ?? new or worsening symptoms of lupus--joint pain, and a skin rash on your cheeks or arms that worsens in sunlight. Taking pantoprazole long-term may cause you to develop stomach growths called fundic gland polyps. Talk with your doctor about this risk. If you use pantoprazole for longer than 3 years, you could develop a vitamin B-12 deficiency. Talk to your doctor about how to manage this condition if you develop it. Common side effects may include: ?? headache, dizziness; ?? stomach pain, gas, nausea, vomiting, diarrhea; ?? joint pain; or ?? fever, rash, or cold symptoms (most common in children). This is not a complete list of side effects and others may occur. Call your doctor for medical advice about side effects. You may report side effects to FDA at 3-496-PRF-2098. What other drugs will affect pantoprazole? Tell your doctor about all your other medicines, especially: ?? digoxin; ?? methotrexate; or ?? a diuretic or 'water pill.' This list is not complete. Other drugs may affect pantoprazole, including prescription and vqql-tdk-gugyjiu medicines, vitamins, and herbal products. Not all possible drug interactions are listed here. Where can I get more information? Your pharmacist can provide more information about pantoprazole. Remember, keep this and all other medicines out of the reach of children, never share your medicines with others, and use this medication only for the indication prescribed. Every effort has been made to ensure that the information provided by [employer]. ('[employer]') is accurate, up-to-date, and complete, but no guarantee is made to that effect. Drug information contained herein may be time sensitive. [employer] information has been compiled for use by healthcare practitioners and consumers in the [place] and therefore [employer] does not warrant that uses outside of the [place] are appropriate, unless specifically indicated otherwise. [employer] drug information does not endorse drugs, diagnose patients or recommend therapy. [employer] drug information is an informational resource designed [...] effective or appropriate for any given patient. [employer] does not assume any responsibility for any aspect of healthcare administered with the aid of information [employer] provides. The information contained herein is not intended to cover all possible uses, directions, precautions, warnings, drug interactions, allergic reactions, or adverse effects. If you have questions about the drugs you are taking, check with your doctor, nurse or pharmacist. Copyright 7981-2369 [employer]. Version: 19.02. Revision Date: 10/15/2017. Emergency Awareness and Preventative Care STROKE is an EMERGENCY Every Minute Counts Act FAST and Check for these signs: FACE Does the face look uneven? ARM Does one arm drift down? SPEECH Does their speech sound strange? TIME Call at any sign of stroke Stroke Risk Factors Atrial Fibrillation (irregular heartbeat) Diabetes Family history of stroke Heart Disease Heavy alcohol use High Blood Pressure High Cholesterol Physical inactivity and obesity Smoking Cigarette Smoking The facts are clear, cigarette smoking will shorten your life. Smoking can cause many illnesses along the way. As a healthcare provider, we recommend that you stop smoking. Assistance with quitting is available by contacting 0-779-QXDM-NOW. This is a free resource providing counseling, support, and referral. Or you may contact your personal physician. National Suicide Prevention Lifeline: The National Suicide Prevention Lifeline is a national network of local crisis centers that provides free and confidential emotional support to people in suicidal crisis or emotional distress 24 hours a day, 7 days a week. Don't Wait! Stop a Heart Attack Before it Starts What is a heart attack? A heart attack is damage or to a part of the heart from severely decreased or lack of blood flow to the heart. Over time, arteries can become narrow from the buildup of fat and cholesterol, which is called plaque. The plaque can rupture causing a blood clot to form. When the blood clot forms, the artery can become severely narrowed or completely blocked, causing a heart attack. Heart attack is the leading cause of in the [place]. 85% of muscle damage occurs within the first 2 hours. Delay in the recognition of heart attack symptoms increases the chances of . Know the early symptoms of a heart attack: Nausea Feeling of fullness in chest Jaw Pain Pain that travels down one or both arms Fatigue/being tired Anxiety Back Pain Chest pressure, squeezing, or discomfort Shortness of breath Sweating, or a cold sweat Feeling of impending doom There are unusual signs of a heart attack, too! Women, the elderly, and diabetics may present with atypical symptoms: Fainting/dizziness Weakness Confusion Risk Factors for a Heart Attack Some heart disease risk factors, such as age and family history, cannot be changed. Others, like smoking and lack of exercise, can be changed. Smoking High Cholesterol High Blood Pressure Family History Obesity Age Gender (Males are at higher risk) Lack of Exercise Diabetes Diet Stress Excessive Alcohol Intake If you or someone you know is experiencing the signs and symptoms of a heart attack, DON???T DELAY. Call immediately and seek help. If someone collapses, perform CPR! Do not attempt to drive if you are having symptoms of heart attack. Hands-Only CPR Why Hands-Only CPR? Hands-Only CPR has been shown to be as effective as conventional CPR for cardiac arrests that occur outside of a hospital. Survival depends on immediately receiving CPR from someone nearby. How do you perform Hands-Only CPR? There are two easy steps: Call if you see a teen or adult collapse Push hard and fast in the center of the chest at a beat of 100 beats per minute. Save a life! 4 WAYS TO GET AHEAD OF SEPSIS SEPSIS is a MEDICAL EMERGENCY. Time matters! Infections put you and your family at risk for a life-threatening condition called sepsis. Sepsis is the body's extreme response to an infection. It is life-threatening, and without timely treatment, sepsis can rapidly lead to tissue damage, organ failure, and . Sepsis happens when an infection you already have-in your skin, lungs, urinary tract or somewhere else-triggers a chain reaction throughout your body. 1 PREVENT INFECTIONS Take good care of chronic conditions. Talk to your doctor about getting the recommended vaccines. 2 PRACTICE GOOD HYGIENE Wash your hands frequently. Keep cuts or open sores clean and covered until they are healed. 3 KNOW THE SYMPTOMS Confusion or disorientation Shortness of breath High heart rate Fever, shivering, or feeling very cold Extreme pain or discomfort Clammy or sweaty skin 4 ACT FAST Get medical care IMMEDIATELY if you suspect sepsis or if you have an infection that is not getting better or is getting worse. To learn more about sepsis and how to prevent infections, visit www.cdc.gov/sepsis. Test Results Laboratory or Other Results This Visit (last charted value for your 03/04/2019 visit) No Laboratory or Other Results This Visit Patient Name:MING MILLS I have received this information and was given the opportunity to ask questions. Patient/Game Technician Name: Patient/Game Technician Signature: Relationship to Patient: Clinician/Hospital Game Technician Signature: Date: documented in this encounter Plan of Treatment Not on file documented as of this encounter Visit Diagnoses Not on filedocumented in this encounter
--- OUTSIDE RECORDS SUMMARY | 2024-10-15 09:11 | XMS_ITS | Encounter Summary ---
Author Organization [employer] [facility] Address [address] [place] [address] Care Team Providers Care Test Hole Driller Name Role Phone Unavailable Primary Care Provider Unavailabl e Encounter Details Date Type Department Care Team (Late st Contact Info) Description 01/07/2019 Transcribed Document [facility] [place] [address] [place] [address] ProviderMary Kate MD [address] [place] [address] Social History Tobacco Use Types Packs/Day Years Used Date Smoking Tobacco: Never Assessed Sex and Gender Information Value Date Recorded Sex Assigned at Not on file Legal Sex Male 5:22 PM CDT Gender Identity Not on file Sexual Orientation Not on file documented as of this encounter Miscellaneous Notes * Cerner Conversion Note - Historical ProviderMD - 01/07/2019 1:10 PM CDT Patient: MING MILLS Age: 53 years Sex: Male : 1965 Associated Diagnoses: None Author: RAZIA LANTIGUA MD-ADEN EGD yesterday for coffee ground emesis found moderately severe esophagitis of the entire esophagus, small hiatal hernia noted. There was a Susana -Ruiz tear with stigmata of recent bleeding found, two endoclips placed. NG tube trauma noted in gastric body with one erosion present with adherent thrombin clot and endoclip placed on this as well. Duodenum was normal. Electronically signed by Jaron Larsen Conversion Cosmetic Account Coordinator Carlitos at 08/08/2022 11:11 PM CDT documented in this encounter Plan of Treatment Not on file documented as of this encounter Visit Diagnoses Not on filedocumented in this encounter
--- OUTSIDE RECORDS SUMMARY | 2024-10-15 09:11 | XMS_ITS | Encounter Summary ---
Author Organization [facility] [employer] Address [address] [place] [address] Care Team Providers Care J2Ee Java Developer Name Role Phone Unavailable Primary Care Provider Unavailabl e Encounter Details Date Type Department Care Team (Late st Contact Info) Description 01/08/2019 Transcribed Document [facility] Family Medicine [address] [place] [address] ProviderMary Kate MD [address] [place], [place] [id number] Social History Tobacco Use Types Packs/Day Years Used Date Smoking Tobacco: Never Assessed Sex and Gender Information Value Date Recorded Sex Assigned at Not on file Legal Sex Male 5:22 PM CDT Gender Identity Not on file Sexual Orientation Not on file documented as of this encounter Miscellaneous Notes * Cerner Conversion Note - Mary Kate ProviderMD - 01/08/2019 3:30 PM CDT [address] [address] [place] :1965 Visit Time:01/04/2019 [...] do next Instructions From Your Care Team [facility] [phone] Discharge Activity: Discharge Activity: Activity as tolerated Diet: Discharge Diet: GI Soft/Low Residuel/Low Fiber Follow-Up Appointments Follow Up with JUAN MIGUEL MOLINA NP-FAM When 01/14/2019 11:00 AM EDT Comments Appointment has been made Where: [address] [place] [address]- x8 Follow Up with MARLENE ÁLVAREZ MD-GAE When In 2 months Comments Office to call with appoint/instructions Where: [address] [place] [address]- Medications What How Much When Instructions Next Dose levETIRAcetam (Keppra 500 mg oral tablet) 1 Tablet(s) Oral Two Times A Day Printed Prescription [facility] 01/08/2019 pantoprazole (pantoprazole 40 mg oral granule, enteric coated) 1 Each Oral Two Times A Day Duration: 30 Day(s) Printed Prescription [facility] 01/08/2019 pantoprazole (Protonix 40 mg oral delayed release tablet) 1 Tablet(s) Oral Two Times A Day Refills: 2 Take on an empty stomach 30 mintues before a meal Pickup at [facility]/pharmacy #[id number] [facility] 01/08/2019 thiamine (thiamine 100 mg oral tablet) [...] oral tablet) 1 Tablet(s) Oral At Bedtime [facility] 01/08/2019 venlafaxine (venlafaxine 37.5 mg oral tablet) 1 Tablet(s) Oral Two Times A Day [facility] 01/08/2019 Pharmacy Information [facility]/pharmacy #[id number]: [address] [place], [place] [id number] [phone] Take your medications faithfully. Do NOT skip [...] foods? Grains Pasta. Quick breads. Muffins. Pancakes. Gqyfg-xw-dxo cereal. Vegetables Vegetables cooked in oil or [...] foods in my diet? Add whole milk, iyew-ctp-inlh, or heavy cream to cereal, pudding, soup, [...] 04/08/2006 Document Revised: 09/13/2016 Document Reviewed: 09/21/2014 What's in My Handbag Interactive Patient Education ?? 2018 [employer]. Recovering From Addiction Addiction is a complex [...] be able to find financial assistance through gyl-foe-izlgry organizations or with local government-based resources. If you are taking medicines, you may be able to get the generic form, which may be less expensive than brand-name medicine. Some makers of prescription medicines also offer help to patients who cannot afford the medicines that they need. Follow these instructions at home: ??? Take ojgg-pfw-cywbsum and prescription medicines only as told by [...] 08/23/2017 Document Revised: 08/23/2017 Document Reviewed: 08/23/2017 What's in My Handbag Interactive Patient Education ?? 2019 [employer]'s [employer]. Alcohol Use Disorder Alcohol use disorder [...] Follow these instructions at home: ??? Take mewj-srt-vlykslc and prescription medicines only as told by [...] 05/16/2005 Document Revised: 01/03/2017 Document Reviewed: 01/03/2017 What's in My Handbag Interactive Patient Education ?? 2019 [employer]'s [employer]. Alcohol Withdrawal Syndrome Alcohol withdrawal syndrome [...] Follow these instructions at home: ??? Take uhbm-jpz-ukdoayw and prescription medicines (including vitamin supplements) only [...] 01/16/2006 Document Revised: 12/13/2017 Document Reviewed: 12/13/2017 What's in My Handbag Interactive Patient Education ?? 2019 [employer]'s [employer]. Alcohol Abuse and Nutrition Alcohol abuse [...] Your health care provider or diet and cash management specialist (dietitian) will work with you to [...] 01/31/2006 Document Revised: 12/24/2017 Document Reviewed: 12/24/2017 What's in My Handbag Interactive Patient Education ?? 2019 [employer]. thiamine (vitamin B1) (THIGH a min) Vitamin [...] Reference Intake' (formerly 'Recommended Daily Allowances' or STICKER MACHINE OPERATOR) listings for more information. Thiamine is only [...] may report side effects to FDA at 9-276-OIQ-8678. What other drugs will affect thiamine? There may be other drugs that can interact with thiamine. Tell your doctor about all medications you use. This includes prescription, qqdl-mjc-tenkzyr, vitamin, and herbal products. Do not start [...] to ensure that the information provided by [employer]. ('[employer]') is accurate, up-to-date, and complete, but no guarantee is made to that effect. Drug information contained herein may be time sensitive. [employer] information has been compiled for use by healthcare practitioners and consumers in the [place] and therefore [employer] does not warrant that uses outside of the [place] are appropriate, unless specifically indicated otherwise. [employer] drug information does not endorse drugs, diagnose patients or recommend therapy. [employer] drug information is an informational resource designed [...] effective or appropriate for any given patient. [employer] does not assume any responsibility for any aspect of healthcare administered with the aid of information [employer] provides. The information contained herein is not intended to cover all possible uses, directions, precautions, warnings, drug interactions, allergic reactions, or adverse effects. If you have questions about the drugs you are taking, check with your doctor, nurse or pharmacist. Copyright 0951-5531 [employer]. Version: 3.02. Revision Date: 03/24/2013. folic acid [...] may report side effects to FDA at 2-101-BSE-3256. What other drugs will affect folic acid? [...] your doctor about all your prescription and wrxv-dsv-lwehubn medications, vitamins, minerals, herbal products, and drugs [...] to ensure that the information provided by [employer]. ('[employer]') is accurate, up-to-date, and complete, but no guarantee is made to that effect. Drug information contained herein may be time sensitive. [employer] information has been compiled for use by healthcare practitioners and consumers in the [place] and therefore [employer] does not warrant that uses outside of the [place] are appropriate, unless specifically indicated otherwise. [employer]'s drug information does not endorse drugs, diagnose patients or recommend therapy. [employer] drug information is an informational resource designed [...] effective or appropriate for any given patient. [employer] does not assume any responsibility for any aspect of healthcare administered with the aid of information [employer] provides. The information contained herein is not intended to cover all possible uses, directions, precautions, warnings, drug interactions, allergic reactions, or adverse effects. If you have questions about the drugs you are taking, check with your doctor, nurse or pharmacist. Copyright 3973-9565 [employer]. Version: 5.02. Revision Date: 04/05/2010. multivitamins (MUL [...] may report side effects to FDA at 7-700-SIQ-7577. What other drugs will affect multivitamins? Multivitamins [...] drugs may affect multivitamins, including prescription and eykr-dns-dansqig medicines, vitamins, and herbal products. Not all [...]
--- OUTSIDE RECORDS SUMMARY | 2024-10-15 09:11 | XMS_ITS | Encounter Summary ---
Author Organization [employer] Address [address] [place] [address] Care Team Providers Care Copy And Print Associate Name Role Phone Unavailable Primary Care Provider Unavailabl e Encounter Details Date Type Department Care Team (Late st Contact Info) Description 01/08/2019 Transcribed Document [facility] Family Medicine [address] [place] [address] ProviderMary Kate MD [address] [place] [address] Social History Tobacco Use Types Packs/Day Years Used Date Smoking Tobacco: Never Assessed Sex and Gender Information Value Date Recorded Sex Assigned at Not on file Legal Sex Male 5:22 PM CDT Gender Identity Not on file Sexual Orientation Not on file documented as of this encounter Miscellaneous Notes * Cerner Conversion Note - Mary Kate Cardenas MD - 01/08/2019 9:39 PM CDT Behavioral Health Assessment Note Entered On: 01/08/2019 21:40 EDT Performed On: 01/08/2019 21:39 EDT by SIDDHARTH KAY MSW Behavioral Health Assessment Note Reason For Behavioral Health Assessment : Pt. is a 53 year old male whom was [facility] [place] [facility]. Pt. states he went to [facility] due to coughing up blood and other unknown fluid. While admitted, the pt. states he drinks approximately ?? gallon of Vodka daily and is in need of substance abuse treatment. Pt. denies any current SI/HI/Psychosis or active withdrawn symptoms from ETOH. After speaking with Dr. Ariza, the recommendation was substance abuse rehab. Therefore, he was provided a resource for substance abuse treatment near his home. Pt. was alert and oriented x4. Suicidal Ideation : No current suicidal thoughts Suicide Plan : No plan Current Admission Precipitated By Suicide Attempt : No Suicide Attempt History : No previous attempt Are You Currently Homicidal : No Do You Have a Plan to Harm Others : No plan Clear Homicidal Target : No Thought Process : No difficulties Thought Content : Appropriate Types of Hallucination(s) : None Appearance : Appropriate Mood : Calm, Cooperative Affect : Appropriate General behavior , BH : Cooperative Rate of Speech : Normal Tone of Speech : Average Orientation : Oriented x 4 Legal Guardian : No Legal Status : Voluntary Post-eval Disposition : Outpatient [facility] SIDDHARTH HERNANDEZ, [facility] - 01/08/2019 21:39 EDT Social History (As Of: 01/08/2019 21:40:55 EDT) Alcohol: Alcohol Use History Yes. # Drinks/Day: 5. Date/Time of Last Drink: 12/24/2017. Use in Last 12 Months: Yes. Alcohol Use Frequency Daily. Alcohol Use Comment pt states he drinks 4-5 glasses of vodka per day . (Last Updated: 12/24/2017 23:57:55 EDT by Bea Singh RN) documented in this encounter Plan of Treatment Not on file documented as of this encounter Visit Diagnoses Not on filedocumented in this encounter
[2024-10-15 09:52] LABS: Basophils # 0.1 K/mm3 (0-0.2); Basophils % 1.5 % (0.1-2.0); Eosinophils # 0.4 Kmm3 (0.0-0.4); Eosinophils % 6.8 % (0.1-12.0); Hematocrit 38.8 % (42.0-52.0); Hemoglobin 13.6 g/dL (14.1-18.0); Immature Granulocytes # 0.03 10^3uL; Immature Granulocytes % 0.5 %; Lymphocytes # 1.4 K/mm3 (0.7-4.5); Lymphocytes % 24.7 % (10-50); Mean Corpuscular HGB Conc 35.1 g/dL (31.8-35.4); Mean Corpuscular Hemoglobin 32.5 pg (27.0-31.2); Mean Corpuscular Volume 92.6 fl (80-94); Mean Platelet Volume 9.4 fl (7.4-10.4); Monocytes # 0.8 K/mm3 (0.1-1.0); Monocytes % 13.7 % (1.7-9.3); Neutrophils # 3.1 K/mm3 (1.8-7.8); Neutrophils % 52.8 % (37.0-80.0); Nucleated Red Blood Cells # 0 10^3/uL; Nucleated Red Blood Cells % 0 %; Platelet Count 201 K/mm3 (142-424); Red Blood Count 4.19 M/mm3 (4.60-6.20); Red Cell Distribution Width 16.6 % (11.5-17.5); Red Cell Distribution Width-SD 56.9 fL; White Blood Count 5.8 K/mm3 (4.8-10.8)
[2024-10-15 10:41] LABS: Iron 69 ug/dL (49-181)
[2024-10-15 10:50] LABS: Total Iron Binding Capacity 341 ug/dL (261-462)
[2024-10-15 11:18] LABS: Ferritin 67.5 ng/ml (17.9-464)
== END 2024-10-15 23:59 | disposition home or self-care (01) ==
LOC: LAB 09:06
PROVIDERS: Visit Provider Internal Medicine Medical Oncology
DX: D64.9 Anemia, unspecified (principal)
CPT/HCPCS: 36415; 82728; 83540; 83550; 85025

== ENCOUNTER 2024-10-21 10:05 | Day surgery (SDC) | payer MEDICARE, SELFPAY ==
[2024-10-14 16:33] VITALS: BMI 21.7
[2024-10-21 12:25] VITALS: BP 160/94; PULSE 59; RESP 20; TEMP 36.3; O2SAT 97
[2024-10-21] MEDS: LACTATED RINGERS 1000ML 1,000 ML 50 ML IV (12:25)
--- NOTE | 2024-10-21 13:44 | P.PNANES_ITS ---
[facility] Disclaimer: The information contained in this section may have been updated after the patient was seen, as this information can be updated by other users. Medical History Iron deficiency GERD (gastroesophageal reflux disease) Hyperlipemia Hypertension Surgical History History of throat surgery Family History Other No significant family history Social History Smoking Status: Never smoker alcohol intake: current substance use type: denies use current occupational status: other Travel in the last 8 weeks?: None caffeine: Yes [facility] Anesthesia Checklist Patient Identification Patient Identification: Arm Band and Verbal (Name & ) Structural Data Admitted From: Home Planned Operative Procedure/s: EGD Consent for Planned Operative Procedure(s) Verified: Yes Verified Documents: Surgical Consent NPO Status Verified Time NPO: 00:00 Additional verifications Anesthesia Reactions: No Airway Assessment Mallampati Score:: Class II C-Spine Mobility Assessed: Yes TMJ Mobility Assessed: Yes Dentition: Good Dentition Neurological Assessment Level of Consciousness: Awake, Alert and Appropriate Hx Seizures: Yes Numbness or tingling in extremities: No Anesthesia Plan Anesthesia Risk discussed: Yes Anesthesia Plan: Verified ASA Class: II Anesthesia Type: MAC
--- NOTE | 2024-10-21 13:53 | EXP.HP ---
History of Present Illness *Admission Date: 10/21/24 *History of present illness: Mr. Douglas is a 59-year-old gentleman who is here for diagnostic EGD. He does have iron deficiency and a history of an esophageal stricture with obstruction. He had robotic assisted [place] Al[place]andro esophagectomy. The examination is deemed medically necessary for diagnostic EGD. The patient has been seen, interviewed and examined prior to the procedure by both myself and the anesthesia provider. [facility] Disclaimer: The information contained in this section may have been updated after the patient was seen, as this information can be updated by other users. Medical History Iron deficiency GERD (gastroesophageal reflux disease) Hyperlipemia Hypertension Surgical History History of throat surgery Family History Other No significant family history Social History (Updated 10/21/24 @ 13:45 by Reddy Tijerina CRNA) Smoking Status: Never smoker alcohol intake: current substance use type: denies use current occupational status: other Travel in the last 8 weeks?: None caffeine: Yes Have you lived/traveled outside US in past 30 days?: No Contact w/someone who lives/traveled outside US past 30 days?: No Exposure to someone with infectious disease in past 14 days?: No Do you have a fever (greater than 100.4 F or 38 C)?: No Have you tested positive for COVID-19?: No Exposed to someone with COVID-19 in past 14 days?: No Do you have a sore throat?: No Do you have a cough?: No Do you have any weakness?: No Do you have any diarrhea?: No Are you experiencing any unusual bleeding?: No Do you have any muscle aches/pain?: No Do you have any abdominal pain?: No Are you experiencing loss of taste or smell?: No Review of Systems Review of Systems Review of systems (narrative): Negative *Cardiovascular Comments: Negative *Gastrointestinal Comments: Negative *Genitourinary Comments: Negative *Musculoskeletal Comments: Negative *Neurologic Comments: Negative Meds Home Medications and Allergies Home Medications ?Medication ?Instructions ?Recorded ?Confirmed ?Type ascorbic acid (vitamin C) 500 mg 500 mg PO DAILY 08/11/24 10/15/24 History tablet atorvastatin 80 mg tablet 80 mg PO HS 08/11/24 10/15/24 History carvedilol 12.5 mg tablet 12.5 mg PO BID 08/11/24 10/15/24 History cyanocobalamin (vitamin B-12) 1,000 mcg PO DAILY 08/11/24 10/15/24 History 1,000 mcg tablet ferrous sulfate 325 mg (65 mg 325 mg PO TID 08/11/24 10/15/24 History iron) tablet (FeroSul) folic acid 1 mg tablet 1 mg PO DAILY 08/11/24 10/15/24 History levetiracetam 500 mg tablet 500 mg PO DAILY 08/11/24 10/15/24 History pantoprazole 40 mg tablet,delayed 40 mg PO DAILY 08/11/24 10/15/24 History release thiamine HCl (vitamin B1) 100 mg 100 mg PO DAILY 08/11/24 10/15/24 History tablet trazodone 150 mg tablet 150 mg PO HS 08/11/24 10/15/24 History venlafaxine 150 mg 150 mg PO DAILY 08/11/24 10/15/24 History capsule,extended release 24 hr simvastatin 20 mg tablet 20 mg PO DAILY 10/15/24 10/15/24 History New Prescriptions to Start Prescriptions: Allergies Allergy/AdvReac Type Severity Reaction Status Date / Time No Known Allergies Allergy Verified 10/15/24 09:33 Exam Data for Last 24 hours Vital signs and Labs for Last 24 Hours: Temp Pulse Resp BP Pulse Ox O2 Del Method 97.4 F L 59 L 20 160/94 H 97 Room Air 10/21/24 12:25 10/21/24 12:25 10/21/24 12:25 10/21/24 12:25 10/21/24 12:10/21/24 12:25 *Routine HEENT Exam Head: Present normocephalic Eye: Present EOMI and PERRL ENT: Present mucous membranes moist *Routine Neck Exam Neck: Present supple *Routine Respiratory Exam Respiratory: Present CTA bilaterally *Routine Cardiovascular Exam Cardiovascular: Present RRR *Routine Abdominal Exam Abdominal: Present soft and normoactive bowel sounds; Absent tenderness *Routine Rectal Exam Rectal:: deferred *Routine Genitalia Exam Genitalia:: deferred *Routine Extremities Exam Extremities: Absent cyanosis, clubbing or edema *Routine Skin Exam Skin: Present warm; Absent rash *Routine Neurological Exam Neurological: Present alert and oriented X3 Assessment and Plan *Assessment and plan (1) Iron deficiency anemia: Status: Acute Category: Medical Code(s): D50.9 - Iron deficiency anemia, unspecified (2) History of esophageal stricture: Status: Acute Category: Medical Code(s): Z87.19 - Personal history of other diseases of the digestive system Plan A/P: 1. Iron deficiency anemia with prior history of esophageal stricture requiring esophagectomy is the preprocedural diagnosis. The patient will be anesthetized/sedated using MAC sedation. The patient has been seen and examined. Cardiac and lung assessment prior to the examination is stable. Proceed with planned diagnostic EGD.
--- NOTE | 2024-10-21 14:01 | HMH.PROCNOTE ---
[facility] Procedure Note Date: 10/21/24 Time: 14:11 Procedure Note:: Upper Endoscopy Procedure Report: Esophagogastroduodenoscopy with cold biopsies and TTS balloon dilation Endoscopost: Juancarlos Andrade II, MD Referring Physician: CHANTEL Duke, [facility], [address] [place] [address] Date of Procedure: October 21, 2024 Equipment: Olympus GIF 190 standard upper endoscope Sedation: MAC sedation Indications: Mr. Douglas is a 59-year-old gentleman with iron deficiency anemia. The patient has been followed by hematology (Dr. Lele Rogers) and referred. He is Hemoccult negative. The patient did have a colonoscopy in February 2020 for which was normal ([facility]). He has a history of an esophageal stricture with esophageal obstruction and had multiple esophageal stents placed over several years at the [facility]. He eventually had robotic assisted [place] Al[place]andro esophagectomy. The patient has been on Feosol. He reports no melena, hematochezia or bright red blood per rectum. He reports no dysphagia, heartburn, reflux or abdominal pain. He has regular bowel function. He does take pantoprazole 40 mg daily. Procedure: Prior to the procedure, a history and physical exam was performed, and patient's medications and allergies were reviewed. The risks, benefits and alternatives of the sedation and procedure were discussed with the patient. All questions were answered and informed consent was obtained. The patient was brought to the procedure room. Patient identification and proposed procedure were verified by the physician and the nurse. The patient was placed in a left lateral decubitus position and the scope was passed under direct vision. Throughout the procedure, the patient's blood pressure, pulse, and oxygen saturations were monitored continuously. The upper GI endoscopy was accomplished without difficulty. The patient tolerated the procedure well. Findings: The scope was passed directly into the upper esophagus and advanced to the third portion of the duodenum. The post bulbar duodenum, ampulla and duodenal bulb were normal with normal mucosa and conniventes. Cold biopsies were taken from the first portion of duodenum and duodenal bulb to rule out celiac disease. The scope was withdrawn through a normal duodenal bulb and pylorus into the stomach. There was some bile reflux with antral gastropathy. There was also moderate chronic gastritis of the body and fundus. Upon retroflexion, there were surgical changes with some suture material from prior esophagectomy. Cold biopsies were taken from the lesser curvature to rule out H. pylori. The scope was then withdrawn into the esophagus. There was evidence of the distal esophagectomy with some minimal stenosis of the anastomosis (esophagogastric anastomosis). This was dilated to 20 mm (from 17 to 18 mm diameter) with a TTS hydrostatic balloon. There was also evidence of superficial ulceration proximal to the anastomosis in the esophagus suggestive of ulcerative esophagitis/reflux esophagitis. There was no Garcia's. The remainder of the proximal esophageal mucosa was normal. Impression: 1. Erosive/ulcerative reflux esophagitis (proximal to esophagogastric anastomosis) 2. Mild stenosis of esophagogastric anastomosis status post dilation to 20 mm (from 17 to 18 mm) 3. Chronic gastritis and bile reflux with mild antral gastropathy Plan: I will follow-up the biopsies. I do feel that his iron deficiency may be related to the ulcerative reflux esophagitis. I would avoid NSAIDs and may switch him from pantoprazole to Voquezna. I will discuss the findings with the patient and family.
[2024-10-21 14:14] VITALS: BP 108/68; PULSE 75; RESP 16; TEMP 36.4; O2SAT 94
[2024-10-21 14:24] VITALS: BP 108/70; PULSE 58; RESP 16; TEMP 36.4; O2SAT 96
[2024-10-21 14:34] VITALS: BP 123/83; PULSE 60; RESP 16; TEMP 36.4; O2SAT 96
[2024-10-21 14:44] VITALS: BP 129/79; PULSE 60; RESP 16; TEMP 36.4; O2SAT 97
== END 2024-10-21 14:44 | disposition home or self-care (01) ==
PROVIDERS: Visit Provider Internal Medicine Gastroenterology
PROC: 0DJ08ZZ Inspection of Upper Intestinal Tract, Via Natural or Artificial Opening Endoscopic (ICD-10-PCS; CPT 43239; principal; 2024-10-21 13:00)
DX: K21.00 Gastro-esophageal reflux disease with esophagitis, without bleeding (principal); K22.2 Esophageal obstruction; K29.50 Unspecified chronic gastritis without bleeding; K29.80 Duodenitis without bleeding; K31.9 Disease of stomach and duodenum, unspecified; D50.9 Iron deficiency anemia, unspecified; E78.5 Hyperlipidemia, unspecified; I10 Essential (primary) hypertension; Z87.19 Personal history of other diseases of the digestive system; Z79.899 Other long term (current) drug therapy
CPT/HCPCS: 43239; 43249; C1726; J2003; J2704; J7120

== ENCOUNTER 2025-02-04 14:02 | Observation (INO) | payer MEDICARE, SELFPAY ==
--- OUTSIDE RECORDS SUMMARY | 2025-01-05 18:07 | XMS_ITS | Encounter Summary ---
Author Organization [employer] ([place], [place], [place], [place]) Address [address] [place] [address] Care Team Providers Care Food Safety Officer Name Role Phone [facility], Find-A-Doc Primary Care Provider Reason for Visit * Reason Comments Alcohol Problem * Auth/Cert (Routine) Specialty Diagnoses / Procedures Referred By Schuyler rosales Referred To Contact Diagnoses Subdural hematoma (HCC) Thrombocytopenia (HCC) SDH (subdural hematoma) (HCC) Cerebellar stroke (HCC) Conjunctivitis of left eye, unspecified conjunctivitis type [facility] [address] [place] [address] Phone: tel: fax: [facility] [address] [place] [address] Phone: tel: fax: Referral ID Status Reason Start Date Expiration Date Visits Re quested Visits Authorized [id number] 1 1 Encounter Details Date Type Department Care Team (Late st Contact Info) Description 01/05/2025 6:07 PM EDT - 01/15/2025 12:30 PM EDT Hospital Encounter [facility] Neuro Telemetry Unit [address] [place] [address] Chris Zamudio MD [address] [place] [address] Jarek Domínguez MD [address] [place] [id number] Whitney Moran MD [address] [facility] [address] [place], [place] [id number] Carlee Sutton MD [address], [place] [id number] Michael Haque MD [address] [facility] [address] [place], [place] [id number] Cerebellar stroke (HCC) (Primary Dx); Subdural hematoma (HCC); Thrombocytopenia (HCC); Conjunctivitis of left eye, unspecified conjunctivitis type Discharge Disposition: Rehab Facility Social History Tobacco Use Types Packs/Day Years Used Date Smoking Tobacco: Never Smokeless Tobacco: Never Tobacco Cessation:Counseling Given: Not Answered Alcohol Use Standard Drinks/Week Comments Yes 0 (1 standard drink = 0.6 oz pur e alcohol) 2-3 short glasses a day Utilities Answer Date Recorded In the past 12 months, has t he electric, gas, oil, or water company threatened to shut off services in your home? No 01/06/2025 Interpersonal Safety Answer Date Record ed How often does anyone, armando flores family and friends, physically hurt you? Never 01/06/2025 How often does anyone, armando flores family and friends, insult or talk down to you? Never 01/06/2025 How often does anyone, armando flores family and friends, threaten you with harm? Never 01/06/2025 How often does anyone, armando flores family and friends, scream or curse at you? Never 01/06/2025 Housing Stability Answer Date Recorded What is your living situation today? I have a [facility] [place] place to live 01/06/[address] you li ve. Do you have problems with any of the following? None of the above 01/06/2025 Food Insecurity Answer Date Recorded Within the past 12 months, y ou worried that your food would run out before you got money to buy more. Never true 01/06/2025 Within the past 12 months, t he food you bought just didn't last and you didn't have money to get more. Never true 01/06/2025 Transportation Needs Answer Date Record ed In the past 12 months, has l ack of reliable transportation kept you from medical appointments, meetings, work or from getting things needed for daily living? No 01/06/2025 Financial Resource Strain Answer Date R ecorded How hard is it for you to pa y for the very basics like food, housing, medical care, and heating? Would you say it is: Not hard at all 01/06/2025 Employment Answer Date Recorded Do you want help finding or keeping work or a job? I do not need or want help 01/06/2025 Family and Community Support Answer Zia e Recorded If for any reason you need h elp with day-to-day activities such as bathing, preparing meals, shopping, managing finances, etc., do you get the help you need? I don't need any help 01/06/2025 Feeling Lonely or Isolated 0 01/06 Educational Attainment Answer Date Roge rded Do you speak a language other than [place] at [facility]? No 01/06/2025 Do you want help with school or training? For example, starting or completing job training or getting a high school diploma, GED or equivalent. No 01/06/2025 Physical Activity Answer Date Recorded Number of minutes of exercise per week 0 01/06/2025 Self Management Answer Date Recorded Because of a physical, menta l, or emotional condition, do you have serious difficulty concentrating, remembering, or making decisions? (5 years or older) No 01/06/2025 Because of a physical, menta l, or emotional condition, do you have difficulty doing errands alone such as visiting a doctor's office or shopping? (15 years or older) No 01/06/2025 Substance Use Answer Date Recorded How many times in the past y ear have you used prescription drugs for non-medical reasons? Never 01/06/2025 How many times in the past year have you used [place] legal drugs? Never 01/06/2025 Mental Health Answer Date Recorded Calculation of above two rows 0 Sex and Gender Information Value Date Recorded Sex Assigned at Not on file Legal Sex Male 5:22 PM CDT Gender Identity Not on file Sexual Orientation Not on file documented as of this encounter Last Filed Vital Signs Vital Sign Reading Time Taken Comments Blood Pressure 112/75 01/15/2025 11:45 AM EDT Pulse 60 01/15/2025 11:45 AM EDT Temperature 36.7 C (98.1 F) 01/15/2025 8:08 AM EDT Respiratory Rate 16 01/15/2025 11:45 AM EDT Oxygen Saturation 99% 01/15/2025 11:45 AM EDT Inhaled Oxygen Concentration 40% 01/08/2025 1 1:13 PM EDT Weight 61.2 kg (135 lb) 01/05/2025 6:13 PM EDT Height 167.6 cm (5' 5.98 ) 01/12/2025 9:22 AM ED T Body Mass Index 21.8 01/05/2025 6:13 PM EDT documented in this encounter Discharge Summaries * Michael Haque MD - 01/15/2025 8:40 AM EDT [facility] DISCHARGE SUMMARY: Patient Name: Prosper Douglas : 1965 Date of Admission: 01/05/2025 Date of Discharge: 01/15/2025 Discharge to facility: Home Discharge CODE STATUS: Full code Primary Care Physician: Hanna Nickerson APRN Consultations: Pulmonary, [facility] Neurosurgery, [facility] PT and OT PCP to follow up: Patient will follow-up with neurosurgery closely. Check CBC BMP in 1 week. Hospital Course and Discharge Diagnosis: Prosper Douglas is a 59 y.o. male with PMHx of depression, alcohol dependence, and malnutritionwith iron deficiency anemia who presented on 01/05/2025 after a falls with ORTIZ and other complaints. Workup revealed. DIAGNOSIS: Right subdural hematoma. Likely small cerebellar hemorrhage and small amount of layering along the left tentorium. Currently stable. Evaluated by neurosurgery. Nonsurgical treatment. Continue with PTand OT with fall precautions. Status post platelet transfusion. Repeat CT scan was also unremarkable. Thrombocytopenia/pancytopenia. Clinically stable and improving. Received platelet transfusions. Etoh abuse. Complicating the overall condition. Counseling done and received thiamine and folate. Transaminitis, likely due to above and resolving and stable Acute kidney injury and dehydration. Likely due to above and improved with hydration. Hypomagnesemia and other electrolyte abnormalities, multifactorial mostly alcohol related. Replace per protocol and currently stable. Essential hypertension. Was labile earlier. Now better controlled. Left eye conjunctivitis. Resolved with local treatment. Protein calorie malnutrition, moderate, due to above. Patient was evaluated by neurosurgery. No surgical intervention recommended. Clinically improving. Participating in therapy. No focal neurological deficits. Headache improving. Hemodynamics are also stable. Will be discharged to [facility] for further rehabilitation. Discharge Instructions Discharge Diet: Current diet as tolerated Discharge Activity: As tolerated with fall precautions Discharge Follow UP: Contact information for follow-up [facility]- NEUROSURGERY [id number] [facility] [address] Next Steps: Call in 2 week(s) Hanna Nickerson APRN Specialty: Family Medicine Relationship: PCP - [facility] [place] [address] Next Steps: Call in 1 week(s) Studies Performed: CT brain without IV contrast Result Date: 01/12/2025 CT HEAD WITHOUT CONTRAST HISTORY: Follow-up subdural hemorrhage COMPARISON:January 06, 2025 TECHNIQUE: Thin-section axial images of the brain were performed without contrast. This study was performed with techniques to keep radiation doses as low as reasonably achievable, (ALARA). Individualized d ose reduction techniques using automated exposure control or adjustment of mA and/or kV according to the patient size were employed. FINDINGS: The visualized paranasal sinuses demonstrate no abnormalities. The mastoid air cells are unremarkable. Bone windows demonstrate no fractures or other abnormalities. There is mild to moderate atrophy noted. Again identified is a mixed attenuation right subdural hematoma. There is some residual acute hemorrhage in the temporal occipital region. This previously measured up to 7.5 mm, now measures up to 5 mm. The acute component is less dense than previous. No evidence of midline shift. The ventricles and basal cisterns are unremarkable. There are no masses or mass effect. The visualized orbits and globes are unremarkable. Persistent but improving subdural hematoma which has decreased in size and density. Images reviewed, interpreted, and dictated by Dr. Vikash Townsend. Transcribed by Sharmila Farris PA-C. CT brain without IV contrast Result Date: 01/06/[address] HISTORY: Subdural hemorrhage follow-up. COMPARISON: One day prior. TECHNIQUE: Multiple axial CT images were performed from the foramen magnum to the vertex without enhancement. This study wasperformed with techniques to keep radiation doses as low as reasonably achievable, (ALARA). Individualized dose reduction techniques using automated exposure control or adjustment of mA and/or kV according to the patient size were employed. FINDINGS: Again seen is high attenuation extra-axial fluidcollection overlying the right frontal and parietal lobes. This is similar to the prior study. Thismeasures approximately 4 mm in transverse dimension. The hemorrhage extends posteriorly and inferiorly over the tentorium. No intra-axial hemorrhage is identified. Stable appearance of hemorrhage overlying the right frontal and parietal lobes and extending over the tentorium consistent with subdural hemorrhage. Images reviewed, interpreted, and dictated by Dr. Ricky Monroe. Transcribed by Robert Amaya PA-C. CT brain without IV contrast Result Date: 01/05/2025 CT SCAN OF THE HEAD WITHOUT CONTRAST INDICATION: Alcohol problem. TECHNIQUE: Multiple axial CT images were performed from the foramen magnum to the vertex without contrast. Coronal reconstruction images were obtained from the axial data. This study was performed with techniques to keep radiation doses as low as reasonably achievable (ALARA). Individualized dose reduction techniques using automated exposure control or adjustment of mA and/or KV according to the patient size were employed. COMPARISON: None. FINDINGS: There is no midline shift or hydrocephalus. There is a mixed density right subdural hemorrhage with an acute component. The acute component measures 5 mm on series 2, image 23. Th is extends along the right tentorium. There may also be a small extra-axial component along the lateral aspect of the right cerebellum. There is also increased density along the left tentorium and a small left subdural hemorrhage is suspected.. No acute soft tissue abnormality. No acute osseous abnormalities are present. 1. Mixed density right subdural hemorrhage with an acute component measuring 5 mm. Short follow-up is recommended. 2. Probable small hemorrhage along the right cerebellum and small amount of hemorrhage layering along the left tentorium. This was directly communicated to Lana on 01/05/2025 at 7:25 PM. Images reviewed, interpreted, and dictated by Flor Cisneros MD Procedures Performed: Discharge Medications: Your medication list START taking these medications Instructions Comments Quantity Refills acetaminophen 500 MG tablet Commonly known as: TYLENOL Take 2 tablets (1,000 mg total) by mouth every 6 (six) hours as needed for up to 10 days. 30 tablet 0 amLODIPine 2.5 MG tablet Commonly known as: NORVASC Start taking on: January 16, 2025 Take 1 tablet (2.5 mg total) by mouth daily for 30 days. 30 tablet 0 docusate sodium 100 MG capsule Commonly known as: COLACE Take 1 capsule (100 mg total) by mouth 2 (two) times daily as needed for constipation for up to 10 days. 10 capsule 0 folic acid 1 MG tablet Commonly known as: FOLVITE Start taking on: January 16, 2025 Take 1 tablet (1 mg total) by mouth daily for 30 days. 30 tablet 0 magnesium oxide 400 mg tablet Commonly known as: MAG-OX Start taking on: January 16, 2025 Take 0.5 tablets (200 mg total) by mouth daily with breakfast for 6 days. 3 tablet 0 metoprolol tartrate 50 MG tablet Commonly known as: LOPRESSOR Take 1 tablet (50 mg total) by mouth 2 (two) times daily for 30 days. 60 tablet 0 pantoprazole 40 MG tablet Commonly known as: PROTONIX Start taking on: January 16, 2025 Take 1 tablet (40 mg total) by mouth daily for 30 days. 30 tablet 0 thiamine 100 MG tablet Start taking on: January 16, 2025 Take 2 tablets (200 mg total) by mouth daily for 30 days. 60 tablet 0 CONTINUE taking these medications Instructions Comments Quantity Refills ferrous sulfate 325 (65 FE) MG tablet Take 1 tablet (325 mg total) by mouth 3 (three) times a week MON/WED/FRI. 0 simvastatin 20 MG tablet Commonly known as: ZOCOR Take 1 tablet (20 mg total) by mouth nightly. 0 Where to Get Your Medications These medications were sent to [facility] [place] [address] [facility] [address] [address] acetaminophen 500 MG tablet amLODIPine 2.5 MG tablet docusate sodium 100 MG capsule folic acid 1 MG tablet magnesium oxide 400 mg tablet metoprolol tartrate 50 MG tablet pantoprazole 40 MG tablet thiamine 100 MG tablet Time Spent: More than 30 minutes Electronically signed by Michael Haque MD, 01/15/25, 8:40 AM EDT documented in this encounter Medications at Time of Discharge amLODIPine (NORVASC) 2.5 MG tablet Take 1 tablet (2.5 mg total) by mouth daily for 30 days. 30 tablet 01/16/2025 ferrous sulfate 325 (65 FE) MG tablet Take 1 tablet (325 mg total) by mouth 3 (three) times a week MON/WED/FRI. folic acid (FOLVITE) 1 MG tablet Take 1 tablet (1 mg total) by mouth daily for 30 days. 30 tablet 01/16/2025 5 metoprolol tartrate (LOPRESSOR) 50 MG tablet Take 1 tablet (50 mg total) by mouth 2 (two) times daily for 30 days. 60 tablet 01/15/2025 5 pantoprazole (PROTONIX) 40 MG tablet Take 1 tablet (40 mg total) by mouth daily for 30 days. 30 tablet 01/16/2025 5 simvastatin (ZOCOR) 20 MG tablet Take 1 tablet (20 mg total) by mouth nightly. thiamine 100 MG tablet Take 2 tablets (200 mg total) by mouth daily for 30 days. 60 tablet 01/16/2025 5 acetaminophen (TYLENOL) 500 MG tablet Take 2 tablets (1,000 mg total) by mouth every 6 (six) hours as needed for up to 10 days. 30 tablet 01/15/2025 5 docusate sodium (COLACE) 100 MG capsule Take 1 capsule (100 mg total) by mouth 2 (two) times daily as needed for constipation for up to 10 days. 10 capsule 01/15/2025 5 magnesium oxide (MAG-OX) 400 mg tablet Take 0.5 tablets (200 mg total) by mouth daily with breakfast for 6 days. 3 tablet 01/16/2025 5 documented as of this encounter Progress Notes * Jacqueline Wick RN - 01/15/2025 8:43 AM EDT Care Coordination Final Discharge Plan Final Discharge Plan Accept to [facility] for Inpatient rehab. [facility] confirmed insurance authorization has been obtained for acceptance to their facility today. Patient Appealing Discharge: No Does the patient have ability to fill and recive their discharge medications? Yes Patient returning to prior living situation: Yes Support Systems: Family members Discharge Disposition: IPR Services Arranged for Discharge: Contact information for follow-up [facility]- NEUROSURGERY [address] [facility] [address] Next Steps: Call in 2 week(s) Hanna Nickerson APRN Specialty: Family Medicine Relationship: PCP - [facility] [address] [facility] [address] Next Steps: Call in 1 week(s) Transporation Provider: [facility] Transport Transportation Provider Date of ferry terminal supervisor: 01/15/2025 Time of ferry terminal supervisor: 1230 Jacqueline FERRER RN, [facility] Luggage Repairer [phone] [id number]: discharge summary cleared by pharmacy and faxed to [facility] CVA unit fax [phone]. Report number given to bedside [phone] Jacqueline FERRER RN, [facility] Luggage Repairer [phone] * Michael Haque MD - 01/15/2025 8:27 AM EDT [facility] PROGRESS NOTE: Patient: Prosper Douglas Date: 01/15/2025 ASSESSMENT and PLAN: Prosper Douglas is a 59 y.o. male with PMHx of depression, alcohol dependence, and malnutritionwith iron deficiency anemia who presented on 01/05/2025 after a falls with ORTIZ and other complaints. Workup revealed. DIAGNOSIS: Right subdural hematoma. Likely small cerebellar hemorrhage and small amount of layering along the left tentorium. Currently stable. Evaluated by neurosurgery. Nonsurgical treatment. Continue with PTand OT with fall precautions. Status post platelet transfusion. Repeat CT scan was also unremarkable. Thrombocytopenia/pancytopenia. Clinically stable and improving. Received platelet transfusions. Etoh abuse. Complicating the overall condition. Counseling done and received thiamine and folate. Transaminitis, likely due to above and resolving and stable Acute kidney injury and dehydration. Likely due to above and improved with hydration. Hypomagnesemia and other electrolyte abnormalities, multifactorial mostly alcohol related. Replace per protocol and currently stable. Essential hypertension. Was labile earlier. Now better controlled. Left eye conjunctivitis. Resolved with local treatment. Protein calorie malnutrition, moderate, due to above. VTE Prophylaxis: Mechanical VTE prophylaxis. Anticoagulation was held due to intracranial bleed. CODE STATUS : Full code Previous Living Condition: Home Expected Disposition: Going to [facility] rehab Expected Discharge Date: Today Subjective This patient is new to me today. I have reviewed pertinent notes, laboratory findings, imaging, andhave summarized as above. Patient is resting in bed, comfortable. Hemodynamics stable. No distress. Ready for discharge today. Objective Vitals: Temp: [97.7 ??F (36.5 ??C)-98.6 ??F (37 ??C)] 98.6 ??F (37 ??C) Pulse: [52-79] 53 Resp: [15-17] 15 BP: (108-157)/(73-105) 129/85 Intake/Output: Intake/Output Summary (Last 24 hours) at 01/15/2025826 Last data filed at 01/15/2025 0400 Gross per 24 hour Intake 480 ml Output 2800 ml Net -2320 ml Physical exam: General: Looks comfortable and no distress HEENT: Unremarkable Neck: Supple. CVS: S1, S2, no S3 or S4. Regular rate and rhythm no murmur. Lungs: Mostly clear to auscultation Abdomen: Soft. Nontender. Positive bowel sounds. 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 No gross neurological focal deficits. Musculoskeletal: Range of motion is normal. No pedal edema. Skin: Warm and dry on exposed surface. Psychiatry: Mood appropriate Medications: Scheduled Meds: amLODIPine 2.5 mg oral Daily 2.5 mg at 01/15/25 0808 [Held by provider] cloNIDine 0.1 mg oral TID 0.1 mg at 01/12/25 2230 folic acid 1 mg oral Daily 1 mg at 01/15/25 0808 magnesium oxide 200 mg oral Daily with breakfast 200 mg at 01/15/25 0808 metoprolol tartrate 50 mg oral BID 50 mg at 01/15/25 0808 multivitamin 1 tablet oral Daily 1 tablet at 01/15/25 0808 pantoprazole 40 mg oral Daily 40 mg at 01/15/25 0809 potassium chloride 40 mEq oral Once thiamine 200 mg oral Daily 200 mg at 01/15/25 0808 Continuous Infusions: Current Facility-Administered Medications Medication Dose Route Frequency Provider Last Rate Last Admin acetaminophen (TYLENOL) tablet 1,000 mg 1,000 mg oral Q6H PRN Jarek Connor MD 1,000 mg at 01/13/25 1246 amLODIPine (NORVASC) tablet 2.5 mg 2.5 mg oral Daily Carlee Sutton MD 2.5 mg at 01/15/25 0808 cloNIDine (CATAPRES) tablet 0.1 mg 0.1 mg oral Q4H PRN Jarek Connor MD 0.1 mg at 01/10/25 0851 [Held by provider] cloNIDine (CATAPRES) tablet 0.1 mg 0.1 mg oral TID Minna Osuna MD 0.1 mg at 01/12/25 2230 diazePAM (VALIUM) injection 5 mg 5 mg intravenous Q5 Min PRN Jarek Connor MD 5 mg at 01/06/25 0139 docusate sodium (COLACE) capsule 100 mg 100 mg oral BID PRN Jarek Connor MD folic acid (FOLVITE) tablet 1 mg 1 mg oral Daily Minna Osuna MD 1 mg at 01/15/25 0808 hydrALAZINE (APRESOLINE) injection 10 mg 10 mg intravenous Q4H PRN Jarek Connor MD 10 mg at 01/12/25 0019 magnesium oxide (MAG-OX) tablet 200 mg 200 mg oral Daily with breakfast Carlee Sutton MD 200 mg at 01/15/25 0808 magnesium sulfate IVPB 2 g in sterile water 50 mL (premix) 2 g intravenous Daily PRN Jarek Connor MD magnesium sulfate IVPB 2 g in sterile water 50 mL (premix) 2 g intravenous BID PRN Jarek Connor MD melatonin tablet 5 mg 5 mg oral Every Night PRN Jarek Connor MD metoprolol tartrate (LOPRESSOR) tablet 50 mg 50 mg oral BID Minna Osuna MD 50 mg at 01/15/25 0808 morphine injection 2 mg 2 mg intravenous Q4H PRN Jarek Connor MD 2 mg at 01/14/25 1722 multivitamin (THERAGRAN) tablet 1 tablet 1 tablet oral Daily Carlee Sutton MD 1 tablet at 01/15/25 0808 naloxone (NARCAN) injection 0.2 mg 0.2 mg intravenous Q2 Min PRN Jarek Connor MD ondansetron (ZOFRAN-ODT) disintegrating tablet 4 mg 4 mg oral Q8H PRN Jarek Connor MD Or ondansetron (ZOFRAN) injection 4 mg 4 mg intravenous Q4H PRN Jarek Connor MD pantoprazole (PROTONIX) EC tablet 40 mg 40 mg oral Daily Jarek Connor MD 40 mg at 01/15/25 0809 potassium chloride (KLOR-CON) ER tablet 40 mEq 40 mEq oral 4x Daily PRN Jarek Connor MD 40 mEq at01/10/25 0911 potassium chloride (KLOR-CON) ER tablet 40 mEq 40 mEq oral Once Carlee Sutton MD potassium chloride IVPB 10 mEq in 100 mL sterile water (premix) 10 mEq intravenous Q1H PRN Jarek Connor MD thiamine tablet 200 mg 200 mg oral Daily Carlee Sutton MD 200 mg at 01/15/25 0808 traMADoL (ULTRAM) tablet 50 mg 50 mg oral Q6H PRN Carlee Sutton MD 50 mg at 01/15/25 0511 traZODone (DESYREL) tablet 50 mg 50 mg oral Every Night PRN Michel Leo MD 50 mg at 01/14/25 2147 PRN Meds: @MEDSPRN@ Labs: Results for orders placed or performed during the hospital encounter of 01/05/25 (from the past 24 hours) ECG 12 lead Status: None (In process) Collection Time: 01/14/25 8:35 PM Result Value Ref Range VENTRICULAR RATE EKG/MIN 56 BPM ATRIAL RATE (MCT) 56 BPM MA Interval 164 ms QRS-INTERVAL (MSEC) 82 ms QT Interval 452 ms QTC Interval 436 ms R AXIS (MCT) 31 degrees T Wave [place] 22 degrees [place] Diagnosis Sinus bradycardia Otherwise normal ECG When compared with ECG of 09-JAN-2025 19:04, No significant change was found Radiology: Radiology Results (last 3 days) Procedure Component Value Units Date/Time CT brain without IV contrast [[id number]] Collected: 01/12/25 1422 Order Status: Completed Updated: 01/12/25 1441 Narrative: CT HEAD WITHOUT CONTRAST HISTORY: Follow-up subdural hemorrhage COMPARISON:January 06, 2025 TECHNIQUE: Thin-section axial images of the brain were performed without contrast. This study was performed with techniques to keep radiation doses as low as reasonably achievable, (ALARA). Individualized dose reduction techniques using automated exposure control or adjustment of mA and/or kV according to the patient size were employed. FINDINGS: The visualized paranasal sinuses demonstrate no abnormalities. The mastoid air cells are unremarkable. Bone windows demonstrate no fractures or other abnormalities. There is mild to moderate atrophy noted. Again identified is a mixed attenuation right subdural hematoma. There is some residual acute hemorrhage in the temporal occipital region. This previously measured up to 7.5 mm, now measures up to 5 mm. The acute component is less dense than previous. No evidence of midline shift. The ventricles and basal cisterns are unremarkable. There are no masses or mass effect. The visualized orbits and globes are unremarkable. Impression: Persistent but improving subdural hematoma which has decreased in size and density. Images reviewed, interpreted, and dictated by Dr. Vikash Townsend. Transcribed by Sharmila Farris PA-C. Signed: 01/15/2025 * Carlee Sutton MD - 01/14/2025 3:40 PM EDT [facility] MEDICINE PROGRESS NOTE: Patient: Prosper Douglas Date: 01/14/2025 ASSESSMENT and PLAN: Prosper Douglas is a 59 y.o. male with PMHx of depression, alcohol dependence, and malnutritionwith iron deficiency anemia who presented on 01/05/2025 after a falls with ORTIZ and other complaints. Workup revealed. DIAGNOSIS: Right SDH-Right small cerebellar hemorrhage and small amount of hemorrhage layering along the left tentorium. - 0n 01/12/25, the patient was having worsening persistent headaches., Head CT done revealed Persistent but improving subdural hematoma which has decreased in size. and density. - S/p platelet transfusions, - fall risk. Fall precautions Cephalgia - etiology due to above ? - repeat head CT on 01/12/25 showed nothing acute - analgesics. Morphine and Reglan combo - non focal examination -NeuroSx also following Pancytopenia-resolved - Alcohol induced macrocytosis. - Normally pt has a hx of Thrombocytopenia - as well as Vitamin b12, Folate - stable hematologic indices. - Platelets are WNL today Etoh Use Disorder Hypomagnesiemia Due to poor proper nutrition - Monitor for signs of Alcohol withdrawal. Continue telemonitoring - Continue Thiamine, MVI and Folate. Replete lytes as indicated. - Monitor Mg and Phos stores, given the risk of refeeding syndrome. Am labs ordered. HTN - Essential and uncontrolled and very labile. Pressure earlier today at 10:30 AM was 149/101 and anhour later it was 90/58. Norvasc reduced back to 2.5 mg - Must control BP effectively given SDH - Keep SBP btw 120-130. 5. Elevated Mildly transaminases - Due to Alcoholic use -improving -related to underlying excessive alcohol use -monitor 6 Hypomagnesemia, - Due to alcoholism/poor nutrition - typically seen in refeeding syndrome - monitor and replete serially 7 Protein Calorie Malnutrition -Hypoalbuminemia Nutrition supplements 8 Left eye conjunctivitis- resolved - likely bacterial -s/p 7 days of eye antibiotics - reassess 9. General weakness Alcohol induced - Non focal weakness. - continue Thiamine. Engage in PT/Ot - will likely need SNF 10 Hypernatremia-resolved Mild at 146 - s/p D5W for one liter VTE Prophylaxis: Mechanical VTE prophylaxis CODE STATUS : Same as listed above on Epic Facesheet Previous Living Condition: Home Expected Disposition: To be Determined Expected Discharge Date: Tomorrow 01/15/25 Subjective Patient seen and examined at bedside this AM. Objective Vitals: Temp: [98.1 ??F (36.7 ??C)-99.1 ??F (37.3 ??C)] 98.1 ??F (36.7 ??C) Pulse: [60-72] 72 Resp: [16-17] 17 BP: (115-158)/(78-93) 115/80 Intake/Output: Intake/Output Summary (Last 24 hours) at 01/14/2025 1540 Last data filed at 01/14/2025 0600 Gross per 24 hour Intake -- Output 2200 ml Net -2200 ml Physical exam: General: Looks comfortable and no distress HEENT: Head atraumatic, normal cephalic. Pupil bilateral equal and reacting. Conjunctive are normal. Neck: Supple. No JVD noted CVS: S1, S2, no S3 or S4. Regular rate and rhythm no murmur. Lungs: Bilateral air entry. Normal chest expansion. Clear to auscultation bilaterally. Abdomen: Soft. Nontender. Positive bowel sounds. 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 No gross neurological focal deficits. Musculoskeletal: Range of motion is normal. No pedal edema. Skin: Warm and dry on exposed surface. Psychiatry: Mood appropriate Medications: Scheduled Meds: amLODIPine 2.5 mg oral Daily 2.5 mg at 01/14/25 0851 [Held by provider] cloNIDine 0.1 mg oral TID 0.1 mg at 01/12/25 2230 folic acid 1 mg oral Daily 1 mg at 01/14/25 0851 magnesium oxide 200 mg oral Daily with breakfast 200 mg at 01/14/25 0851 metoprolol tartrate 50 mg oral BID 50 mg at 01/14/25 0851 multivitamin 1 tablet oral Daily 1 tablet at 01/14/25 0851 pantoprazole 40 mg oral Daily 40 mg at 01/14/25 0851 potassium chloride 40 mEq oral Once thiamine 200 mg oral Daily 200 mg at 01/14/25 0852 Continuous Infusions: Current Facility-Administered Medications Medication Dose Route Frequency Provider Last Rate Last Admin acetaminophen (TYLENOL) tablet 1,000 mg 1,000 mg oral Q6H PRN Jarek Connor MD 1,000 mg at 01/13/25 1246 amLODIPine (NORVASC) tablet 2.5 mg 2.5 mg oral Daily Carlee Sutton MD 2.5 mg at 01/14/25 0851 cloNIDine (CATAPRES) tablet 0.1 mg 0.1 mg oral Q4H PRN Jarek Connor MD 0.1 mg at 01/10/25 0851 [Held by provider] cloNIDine (CATAPRES) tablet 0.1 mg 0.1 mg oral TID Minna Osuna MD 0.1 mg at 01/12/252229 diazePAM (VALIUM) injection 5 mg 5 mg intravenous Q5 Min PRN Jarek Connor MD 5 mg at 01/06/25 0139 docusate sodium (COLACE) capsule 100 mg 100 mg oral BID PRN Jarek Connor MD folic acid (FOLVITE) tablet 1 mg 1 mg oral Daily Minna Osuna MD 1 mg at 01/14/25 0851 hydrALAZINE (APRESOLINE) injection 10 mg 10 mg intravenous Q4H PRN Jarek Connor MD 10 mg at 01/12/25 0019 magnesium oxide (MAG-OX) tablet 200 mg 200 mg oral Daily with breakfast Carlee Sutton MD 200 mg at 01/14/25 0851 magnesium sulfate IVPB 2 g in sterile water 50 mL (premix) 2 g intravenous Daily PRN Jarek Connor MD magnesium sulfate IVPB 2 g in sterile water 50 mL (premix) 2 g intravenous BID PRN Jarek Connor MD melatonin tablet 5 mg 5 mg oral Every Night PRN Jarek Connor MD metoprolol tartrate (LOPRESSOR) tablet 50 mg 50 mg oral BID Minna Osuna MD 50 mg at 01/14/25 0851 morphine injection 2 mg 2 mg intravenous Q4H PRN Jarek Connor MD 2 mg at 01/13/25 2312 multivitamin (THERAGRAN) tablet 1 tablet 1 tablet oral Daily Carlee Sutton MD 1 tablet at 01/14/25 0851 naloxone (NARCAN) injection 0.2 mg 0.2 mg intravenous Q2 Min PRN Jarek Connor MD ondansetron (ZOFRAN-ODT) disintegrating tablet 4 mg 4 mg oral Q8H PRN Jarek Connor MD Or ondansetron (ZOFRAN) injection 4 mg 4 mg intravenous Q4H PRN Jarek Connor MD pantoprazole (PROTONIX) EC tablet 40 mg 40 mg oral Daily Jarek Connor MD 40 mg at 01/14/25 0851 potassium chloride (KLOR-CON) ER tablet 40 mEq 40 mEq oral 4x Daily PRN Jarek Connor MD 40 mEq at01/10/25 0911 potassium chloride (KLOR-CON) ER tablet 40 mEq 40 mEq oral Once Carlee Sutton MD potassium chloride IVPB 10 mEq in 100 mL sterile water (premix) 10 mEq intravenous Q1H PRN Jarek Connor MD thiamine tablet 200 mg 200 mg oral Daily Carlee Sutton MD 200 mg at 01/14/25 0852 traMADoL (ULTRAM) tablet 50 mg 50 mg oral Q6H PRN Carlee Sutton MD 50 mg at 01/14/25 1226 PRN Meds: @MEDSPRN@ Labs: Results for orders placed or performed during the hospital encounter of 01/05/25 (from the past 24 hours) CBC with automated diff Status: Abnormal Collection Time: 01/14/25 3:46 AM Result Value Ref Range WBC 5.3 4.2 - 9.1 K/??L RBC 3.57 (L) 4.63 - 6.08 M/??L Hemoglobin 12.3 (L) 13.7 - 17.5 GM/DL Hematocrit 36.6 (L) 40.1 - 51.0 % MCV 103 (H) 79 - 92 fL MCH 34.5 (H) 25.7 - 32.2 pg MCHC 33.6 32.3 - 36.5 GM/DL RDW 13.3 11.6 - 14.4 % Platelets 413 (H) 140 - 375 K/CU MM MPV 9.4 9.4 - 12.4 fL NRBC Absolute <0.01 0 - 0.012 K/ul Basic Metabolic Panel Status: Abnormal Collection Time: 01/14/25 3:46 AM Result Value Ref Range Sodium 141 136 - 145 meq/L Potassium 3.8 3.4 - 5.1 meq/L CO2 22 22 - 29 meq/L Chloride 105 98 - 112 meq/L Glucose 85 74 - 100 mg/dL BUN 25.2 8.4 - 25.7 mg/dL Creatinine 0.83 0.72 - 1.25 mg/dL BUN/Creatinine 30 (H) 8 - 20 Calcium 9.5 8.4 - 10.2 mg/dL Anion Gap 18 (H) 4 - 12 eGFR (mL/min/1.73m2) 101 >=60 mL/min/1.73m2 Osmolality Calc 285.0 mOsm/kg Manual Differential Status: Abnormal Collection Time: 01/14/25 3:46 AM Result Value Ref Range Total Counted 100 % Neutros (manual) 57 50 - 65 % % Lymphs (manual) 21 (L) 24 - 44 % % Monos (manual) 18 (H) 4 - 5 % % Eos (manual) 3 0 - 3 % % Baso (manual) 1 0 - 1 % RBC Morphology abnormal (A) Normal Platelet Estimate Increased (A) Adequate Anisocytosis 1+ Hypochromia 1+ Polychromasia 1+ Macrocytes 1+ Ovalocytes 1+ ANC# 3.02 K/??L Radiology: Radiology Results (last 3 days) Procedure Component Value Units Date/Time CT brain without IV contrast [[id number]] Collected: 01/12/25 1422 Order Status: Completed Updated: 01/12/25 1441 Narrative: CT HEAD WITHOUT CONTRAST HISTORY: Follow-up subdural hemorrhage COMPARISON:January 06, 2025 TECHNIQUE: Thin-section axial images of the brain were performed without contrast. This study was performed with techniques to keep radiation doses as low as reasonably achievable, (ALARA). Individualized dose reduction techniques using automated exposure control or adjustment of mA and/or kV according to the patient size were employed. FINDINGS: The visualized paranasal sinuses demonstrate no abnormalities. The mastoid air cells are unremarkable. Bone windows demonstrate no fractures or other abnormalities. There is mild to moderate atrophy noted. Again identified is a mixed attenuation right subdural hematoma. There is some residual acute hemorrhage in the temporal occipital region. This previously measured up to 7.5 mm, now measures up to 5 mm. The acute component is less dense than previous. No evidence of midline shift. The ventricles and basal cisterns are unremarkable. There are no masses or mass effect. The visualized orbits and globes are unremarkable. Impression: Persistent but improving subdural hematoma which has decreased in size and density. Images reviewed, interpreted, and dictated by Dr. Vikash Townsend. Transcribed by Sharmila Farris PA-C. Signed: 01/14/2025 * Jacqueline Wick RN - 01/14/2025 3:27 PM EDT Discharge Plan Progress Note Received call from [facility] has accepted and obtained insurance authorization for acceptance tomorrow. [facility] for tomorrow, 01/15/25 at 1230. Notified attending, patient, and bedside nursing. Jacqueline FERRER, RN, [facility] Luggage Repairer [phone] * Alex Royal OTR/Viet - 01/14/2025 10:53 AM EDT Images from the original note were not included. [address] [facility] Inpatient Occupational Therapy Treatment Note Patient Name: Prosper Douglas Date of : 1965 Date of Treatment: 01/14/25 Start Time: 10:53 Stop Time: 11:02 Session Duration: 9 minutes This patient is a 59 y.o. male admitted on 01/05/2025 with Subdural hematoma (HCC) [S06.5XAA] Thrombocytopenia (HCC) [D69.6] SDH (subdural hematoma) (HCC) [S06.5XAA] Cerebellar stroke (HCC) [I63.9] Conjunctivitis of left eye, unspecified conjunctivitis type [H10.9]. Past Medical History: Diagnosis Date Alcohol abuse GERD (gastroesophageal reflux disease) Hypertension Past Surgical History: Procedure Laterality Date ESOPHAGECTOMY General Visit type: Treatment Approved by: Nurse Bonner Patient disposition upon entry: Supine in bed, All needs met and within reach, Call light/pull cordin reach, Fall mats in place, Head of bed >30 degrees, Nursing aware/notified, Side rails up Co-treated by: PT Assisted by: Therapy student Precautions Weightbearing status: No restrictions Precautions: Fall risk Isolation precautions: Standard LDA/Brace/Protective equipment: Lines, drains, and airways: external urinary catheter Subjective Subjective: Pt agreeable Pain No-patient has no complaints of pain Cognition Cognition: Overall cognitive status: Patient is awake and alert, attending to directions appropriately, demonstrating good problem solving skills, and aware of any deficits or impairments, if present. Following commands: Follows all commands and directions without difficulty Objective Vitals Heart rate: 60 beats per minute Blood pressure: 157/105 mmHg Bed Mobility Supine to sit: Contact guard assistance , 1 person assist, Head of bed elevated, Use of bedrails Transfers Sit to stand:Minimal assistance, 1 person assist, Gait belt used Stand to sit:Minimal assistance, 1 person assist, Gait belt used Bed to chair transfer:Minimal assistance, 1 person assist, Gait belt used ADLs Feeding:Independent Balance Static sitting balance:Good: Patient able to maintain balance without handheld support; limited postural sway Dynamic sitting balance:Good: Patient accepts moderate challenge; able to maintain balance while picking object off the floor Static standing balance:Fair: Patient able to maintain balance with handheld support, may require occasional minimal assistance Dynamic standing balance:Fair: Patient accepts minimal challenge; able to maintain balance while turning head/trunk Activity Tolerance Patient limited with activity/intervention due to fatigue and weakness Treatment Pt received supine in bed upon OT arrival. Pt agreeable to limited treatment session. Pt completed sup-sit CGA with HOB elevated and use of bed rails. Pt completed sit-stand min A from bed. Pt completed bed-chair transfer min A. Pt completed stand-sit min A to chair. Pt deferred further mobility, exercises and ADLs, requesting to sit in chair and eat lunch at this time. Pt left seated in bedside chair, call light and all needs within reach at conclusion of OT treatment session. Assessment Assessment Patient demonstrated maintained performance during this treatment session. Patient continues to present with decreased strength, decreased endurance, decreased balance. These deficits currently impact the patient's ability to perform ADLs and functional mobility, putting them at an increased risk for increased falls, decreased quality of life, further functional decline, further decreased strength. Patient will benefit from continued OT services to address the aforementioned functional deficits. Plan Recommendations Discharge recommendations: Patient would benefit from 3 hours of intensive multidisciplinary therapy per day to maximize functional outcomes and address functional limitations to return to highest level of functioning. DME recommendations: Patient would benefit from walker, rolling at discharge. Treatment Plan: Continue OT POC OT Frequency/Duration: 3x/week for 14 days Goals Feeding: feeding, sitting edge of bed with modified independence Grooming: grooming , sitting edge of bed with modified independence Bed mobility: supine to sit with minimal assistance Functional transfers: ambulatory transfer with minimal assistance and rolling walker Target Date: 01/23/2025 Goals were discussed with patient Progress towards goals: progressing Education Patient educated on safety, use of call light, role of occupational therapy, patient's plan of care, functional mobility and following, they were able to verbalize understanding. Interdisciplinary Communication Following treatment, therapist communicated with nursing regarding patient's performance during therapy session, patient's level of assistance with transfers for nursing mobility. Patient Disposition Upon Leaving Patient Disposition: Sitting in bedside chair, All needs met and within reach, Call light/pull cordin reach, Fall mats in place, Nursing aware/notified If this patient discharges prior to next therapy session, this note serves as the patient's discharge summary. Electronically signed by CHRISTA Ruiz/Viet - 01/14/2025 - 1:10 PM EDT * Davion Sneed, PT - 01/14/2025 10:53 AM EDT Images from the original note were not included. Inpatient Physical Therapy Treatment Patient Name: Prosper Douglas Date of : 1965 Date of Treatment: 01/14/25 Start Time 1053 Stop Time 1102 Session Duration 9 minutes General Visit Type: Treatment Approved by: Nurse Bonner Patient Disposition Upon Entry: Supine in bed, Call Light/Pull Cord in reach, All needs met and within reach, Nursing aware/notified, Fall mat placed Patient Verified By: Name and Date of Co-treated by: OT Assisted by: Physical therapist Precautions Weight-Bearing Status: No Restrictions Precautions: Fall risk Isolation Precautions: Standard Lines, tubes, drains, airway: weaver catheter, peripheral IV, telemetry Subjective Subjective: Patient agreeable to physical therapy treatment. Pain No - Patient not reporting pain at this time Cognition Overall cognitive status: Patient is awake and alert, attending to directions appropriately, demonstrating good problem solving skills, and aware of any deficits or impairments, if present. Objective Vitals Pre-intervention vitals Heart rate: 60 beats per minute Blood pressure: 157/105 mmHg Functional Mobility Bed Mobility: Supine to Sit: contact guard assist, 1-person assist, HOB elevated, use of bed features Transfers Sit to Stand: minimal assistance, 1-person assist, gait belt used Stand to Sit: minimal assistance, 1-person assist, gait belt used Stand Pivot: minimal assistance, 1-person assist, gait belt used Gait Pt eating lunch at time of treatment. Pt only wanted to transfer to chair to finish eating. Stair Management Not assessed. Patient does not have to negotiate stairs in home or community environment. Wheelchair Mobility Not assessed, patient ambulatory. AM-PAC Basic Mobility Inpatient Short Form How much difficulty does the patient currently have: Turning over in bed (including adjusting bedclothes, sheets, and blankets)? (1) Total/Unable (not able to do the activity or can only perform the activity using assistive devices or requires assistance from another person, including supervision or cueing for safety) Sitting down on and standing up from a chair with arms (e.g., wheelchair, bedside commode, etc.)? (1) Total/Unable (not able to do the activity or can only perform the activity using assistive devices or requires assistance from another person, including supervision or cueing for safety) Moving from lying on back to sitting on side of bed? (1) Total/Unable (not able to do the activity or can only perform the activity using assistive devices or requires assistance from another person,including supervision or cueing for safety) How much help from another person does the patient currently need: Moving to and from a bed to a chair (including a wheelchair)? (3) A little (Minimal/Contact guard/Supervision/Setup) Need to walk in hospital room? (3) A little (Minimal/Contact guard/Supervision/Setup) Climbing 3-5 steps with a railing? (1) Total/Unable (Total assist/dependent) Score Raw score=10 t-Scale score=32.29 Standard error=3.42 CMS 0-100%=76.75% MDC=4.72 A raw score of >= 16 is significantly associated with increased odds of discharge to home in addition to consideration made for the patient's cognition and social determinants of health. Balance Static/dynamic sitting and static/dynamic standing balance grades Balance Grade Sitting Static Good - patient able to maintain balance without handhold support, limited postural sway Sitting Dynamic Good - patient accepts moderate challenge; able to maintain balance while picking object off floor Standing Static Fair - patient able to maintain balance with handhold support; may require occasional minimal assistance Standing Dynamic Fair - patient accepts minimal challenge; able to maintain balance while turning head/trunk Activity Tolerance Patient limited with activity/intervention due to fatigue and weakness Treatment Pt supine in bed with HOB elevated eating lkunch upon arrival. Pt agreeable to transfer to bedside chair to finish eating. Pt completed supine to sit EOB CGA with HOB elevated and use of bed rails. Pt competed stand pivot transfer to bedside chair with min A. Upon completion of the transfer pt requested to end treatment session to finish his lunch. Pt assisted in position of comfort at conclusionof session. Assessment Patient presenting with decreased activity tolerance, generalized weakness with functional activities, impaired dynamic balance with transfers, and impaired dynamic balance with ambulation. Pt required CGA for bed mobility and min A for stand pivot transfer during today's session. Patient would benefit from skilled physical therapy services during length of stay for strengthening, balance training to decrease risk of falling, endurance training to improve activity tolerance, gait training, progression of mobility, and assistive device training. Problems: Decreased functional mobility, Decreased gait tolerance, Decreased strength, Decreased activity tolerance, Impaired sitting balance, Impaired standing balance, Impaired dynamic balance, Gait impairment Rehab potential: Good for stated goals Plan Treatment plan: Continue per POC. PT Frequency/Duration: 5x/week for 14 days Recommendations Discharge recommendations: Patient would benefit from 3 hours of intensive multidisciplinary therapy per day to maximize functional outcomes and address functional limitations to return to highest level of functioning. DME recommendations: Patient has no DME/adaptive equipment discharge needs at this time. Goals [id number]: By the target date, patient will perform [id number] with modified independence, utilizing bed railing, to improve independence with bed mobility. [id number]: By the target date, patient will perform sit to stand with modified independence and rolling walker to improve independence with functional mobility. Transfer: By the target date, patient will perform stand-pivot transfer to a bedside commode, recliner chair, or wheelchair with modified independence and utilizing rolling walker, demonstrating ability to safely transfer while in hospital setting to improve independence with functional mobility. Gait: Patient will ambulate 150ft with minimal assistance and utilizing rolling walker in order to increase independence with ambulation and improve balance with ambulation and decrease risk of falling Target Date: 01/23/2025 Progress towards goals: progressing Education Patient educated on safety, use of call button, role of physical therapy, and plan of care and following, they were able to verbalize and demonstrate understanding. No further questions or concerns stated. Interdisciplinary Communication Following treatment, therapist communicated with nursing by completing communication whiteboard in room. Patient Disposition Upon Leaving Patient in bedside chair, Call Light/Pull Cord in reach, All needs met and within reach, Nursing aware/notified, Fall mat placed If this patient discharges prior to next therapy session, this note serves as the patient's discharge summary. Electronically signed by Leonard Freeman PT Student - 01/14/25 - 2:12 PM EDT This note written by PT student. PT has reviewed the above documentation and agrees. Electronically signed by Davion Sneed PT, DPT - 01/14/25 - 4:01 PM EST * Carlee Sutton MD - 01/13/2025 4:28 PM EDT [facility] MEDICINE PROGRESS NOTE: Patient: Prosper Douglas Date: 01/13/2025 ASSESSMENT and PLAN: Prosper Douglas is a 59 y.o. male with PMHx of depression, alcohol dependence, and malnutritionwith iron deficiency anemia who presented on 01/05/2025 after a falls with ORTIZ and other complaints. Workup revealed. DIAGNOSIS: Right SDH-Right small cerebellar hemorrhage and small amount of hemorrhage layering along the left tentorium. - 0n 01/12/25, the patient was having worsening persistent headaches., Head CT done revealed Persistent but improving subdural hematoma which has decreased in size. and density. - S/p platelet transfusions, - fall risk. Fall precautions Cephalgia - etiology due to above ? - repeat head CT on 01/12/25 showed nothing acute - analgesics. Morphine and Reglan combo - non focal examination -NeuroSx also following Pancytopenia-resolved - Alcohol induced macrocytosis. - Normally pt has a hx of Thrombocytopenia - as well as Vitamin b12, Folate - stable hematologic indices. - Platelets are WNL today Etoh Use Disorder Hypomagnesiemia Due to poor proper nutrition - Monitor for signs of Alcohol withdrawal. Continue telemonitoring - Continue Thiamine, MVI and Folate. Replete lytes as indicated. - Monitor Mg and Phos stores, given the risk of refeeding syndrome. Am labs ordered. HTN - Essential and uncontrolled and very labile. Pressure earlier today at 10:30 AM was 149/101 and anhour later it was 90/58. Norvasc reduced back to 2.5 mg - Must control BP effectively given SDH - Keep SBP btw 120-130. 5. Elevated Mildly transaminases - Due to Alcoholic use -improving -related to underlying excessive alcohol use -monitor 6 Hypomagnesemia, - Due to alcoholism/poor nutrition - typically seen in refeeding syndrome - monitor and replete serially 7 Protein Calorie Malnutrition -Hypoalbuminemia Nutrition supplements 8 Left eye conjunctivitis- resolved - likely bacterial -s/p 7 days of eye antibiotics - reassess 9. General weakness Alcohol induced - Non focal weakness. - continue Thiamine. Engage in PT/Ot - will likely need SNF 10 Hypernatremia Mild at 146 - D5W for one liter VTE Prophylaxis: Mechanical VTE prophylaxis CODE STATUS : Same as listed above on Epic Facesheet Previous Living Condition: Home Expected Disposition: To be Determined Expected Discharge Date: SNF Subjective Patient seen and examined at bedside this AM. Pt says he was well. Denies any CP, SOB< N, V, palpitations, rash, melena, hematochezia. He c/o headaches, mostly right sided. Objective Vitals: Temp: [98.6 ??F (37 ??C)-99.9 ??F (37.7 ??C)] 99.3 ??F (37.4 ??C) Pulse: [57-65] 57 Resp: [16] 16 BP: (101-145)/(66-91) 101/66 Intake/Output: Intake/Output Summary (Last 24 hours) at 01/13/2025 1628 Last data filed at 01/13/2025 0400 Gross per 24 hour Intake 600 ml Output 1800 ml Net -1200 ml Physical exam: General: Looks comfortable and no distress, non toxic, on RA. HEENT: Head atraumatic, normal cephalic. Pupil bilateral equal and reacting. Conjunctive are normal. Neck: Supple. No JVD noted CVS: S1, S2, no S3 or S4. Regular rate and rhythm no murmur. Lungs: Bilateral air entry. Normal chest expansion. Clear to auscultation bilaterally. Abdomen: Soft. Nontender. Positive bowel sounds. 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 No gross neurological focal deficits. Musculoskeletal: Range of motion is normal. No pedal edema. Skin: Warm and dry on exposed surface. Psychiatry: Mood appropriate Medications: Scheduled Meds: amLODIPine 2.5 mg oral Daily [Held by provider] cloNIDine 0.1 mg oral TID 0.1 mg at 01/12/252229 folic acid 1 mg oral Daily 1 mg at 01/13/25 08 magnesium oxide 200 mg oral Daily with breakfast 200 mg at 01/13/25818 metoprolol tartrate 50 mg oral BID 50 mg at 01/12/25 223 multivitamin 1 tablet oral Daily 1 tablet at 01/13/25818 pantoprazole 40 mg oral Daily 40 mg at 01/13/25817 potassium chloride 40 mEq oral Once thiamine 200 mg oral Daily 200 mg at 01/13/25 0820 Continuous Infusions: Current Facility-Administered Medications Medication Dose Route Frequency Provider Last Rate Last Admin acetaminophen (TYLENOL) tablet 1,000 mg 1,000 mg oral Q6H PRN Jarek Connor MD 1,000 mg at 01/13/25 1246 amLODIPine (NORVASC) tablet 2.5 mg 2.5 mg oral Daily Carlee Sutton MD cloNIDine (CATAPRES) tablet 0.1 mg 0.1 mg oral Q4H PRN Jarek Connor MD 0.1 mg at 01/10/25 0851 [Held by provider] cloNIDine (CATAPRES) tablet 0.1 mg 0.1 mg oral TID Minna Osuna MD 0.1 mg at 01/12/25 223 dextrose 5 % infusion 100 mL/hr intravenous Continuous Carlee Sutton MD 100 mL/hr at 01/13/25 1227 100 mL/hr at 01/13/25 1227 diazePAM (VALIUM) injection 5 mg 5 mg intravenous Q5 Min PRN Jarek Connor MD 5 mg at 01/06/25 0139 docusate sodium (COLACE) capsule 100 mg 100 mg oral BID PRN Jarek Connor MD folic acid (FOLVITE) tablet 1 mg 1 mg oral Daily Minna Osuna MD 1 mg at 01/13/25 0819 hydrALAZINE (APRESOLINE) injection 10 mg 10 mg intravenous Q4H PRN Jarek Connor MD 10 mg at 01/12/25 0019 LORazepam (ATIVAN) injection 1 mg 1 mg intravenous Q30 Min PRN Minna Osuna MD Or LORazepam (ATIVAN) tablet 1 mg 1 mg oral Q30 Min PRN Minna Osuna MD LORazepam (ATIVAN) injection 2 mg 2 mg intravenous Q30 Min PRN Minna Osuna MD Or LORazepam (ATIVAN) tablet 2 mg 2 mg oral Q30 Min PRN Minna Osuna MD LORazepam (ATIVAN) injection 3 mg 3 mg intravenous Q30 Min PRN Minna Osuna MD Or LORazepam (ATIVAN) tablet 3 mg 3 mg oral Q30 Min PRN Minna Osuna MD LORazepam (ATIVAN) injection 4 mg 4 mg intravenous Q30 Min PRN Minna Osuna MD Or LORazepam (ATIVAN) tablet 4 mg 4 mg oral Q30 Min PRN Minna Osuna MD LORazepam (ATIVAN) tablet 1 mg 1 mg oral Q8H PRN Jarek Connor MD LORazepam (ATIVAN) tablet 1 mg 1 mg oral Q4H PRN Carlee Sutton MD magnesium oxide (MAG-OX) tablet 200 mg 200 mg oral Daily with breakfast Carlee Sutton MD 200 mg at 01/13/25 0819 magnesium sulfate IVPB 2 g in sterile water 50 mL (premix) 2 g intravenous Daily PRN Jarek Connor MD magnesium sulfate IVPB 2 g in sterile water 50 mL (premix) 2 g intravenous BID PRN Jarek Connor MD melatonin tablet 5 mg 5 mg oral Every Night PRN Jarek Connor MD metoprolol tartrate (LOPRESSOR) tablet 50 mg 50 mg oral BID Minna Osuna MD 50 mg at 01/12/252230 morphine injection 2 mg 2 mg intravenous Q4H PRN Jarek Connor MD multivitamin (THERAGRAN) tablet 1 tablet 1 tablet oral Daily Carlee Sutton MD 1 tablet at 01/13/25 0819 naloxone (NARCAN) injection 0.2 mg 0.2 mg intravenous Q2 Min PRN Jarek Connor MD ondansetron (ZOFRAN-ODT) disintegrating tablet 4 mg 4 mg oral Q8H PRN Jarek Connor MD Or ondansetron (ZOFRAN) injection 4 mg 4 mg intravenous Q4H PRN Jarek Connor MD pantoprazole (PROTONIX) EC tablet 40 mg 40 mg oral Daily Jarek Connor MD 40 mg at 01/13/25 0818 potassium chloride (KLOR-CON) ER tablet 40 mEq 40 mEq oral 4x Daily PRN Jarek Connor MD 40 mEq at01/10/25 0911 potassium chloride (KLOR-CON) ER tablet 40 mEq 40 mEq oral Once Carlee Sutton MD potassium chloride IVPB 10 mEq in 100 mL sterile water (premix) 10 mEq intravenous Q1H PRN Jarek Connor MD thiamine tablet 200 mg 200 mg oral Daily Carlee Sutton MD 200 mg at 01/13/25 0820 PRN Meds: @MEDSPRN@ Labs: Results for orders placed or performed during the hospital encounter of 01/05/25 (from the past 24 hours) Basic Metabolic Panel Status: Abnormal Collection Time: 01/13/25 3:44 AM Result Value Ref Range Sodium 146 (H) 136 - 145 meq/L Potassium 3.9 3.4 - 5.1 meq/L CO2 22 22 - 29 meq/L Chloride 106 98 - 112 meq/L Glucose 100 74 - 100 mg/dL BUN 26.2 (H) 8.4 - 25.7 mg/dL Creatinine 0.90 0.72 - 1.25 mg/dL BUN/Creatinine 29 (H) 8 - 20 Calcium 9.3 8.4 - 10.2 mg/dL Anion Gap 22 (H) 4 - 12 eGFR (mL/min/1.73m2) 98 >=60 mL/min/1.73m2 Osmolality Calc 295.5 mOsm/kg Magnesium Status: Normal Collection Time: 01/13/25 3:44 AM Result Value Ref Range Magnesium 1.7 1.6 - 2.6 mg/dL Phosphorus Status: Normal Collection Time: 01/13/25 3:44 AM Result Value Ref Range Phosphorus 3.6 2.5 - 4.5 mg/dL Radiology: Radiology Results (last 3 days) Procedure Component Value Units Date/Time CT brain without IV contrast [[id number]] Collected: 01/12/25 1422 Order Status: Completed Updated: 01/12/25 1441 Narrative: CT HEAD WITHOUT CONTRAST HISTORY: Follow-up subdural hemorrhage COMPARISON:January 06, 2025 TECHNIQUE: Thin-section axial images of the brain were performed without contrast. This study was performed with techniques to keep radiation doses as low as reasonably achievable, (ALARA). Individualized dose reduction techniques using automated exposure control or adjustment of mA and/or kV according to the patient size were employed. FINDINGS: The visualized paranasal sinuses demonstrate no abnormalities. The mastoid air cells are unremarkable. Bone windows demonstrate no fractures or other abnormalities. There is mild to moderate atrophy noted. Again identified is a mixed attenuation right subdural hematoma. There is some residual acute hemorrhage in the temporal occipital region. This previously measured up to 7.5 mm, now measures up to 5 mm. The acute component is less dense than previous. No evidence of midline shift. The ventricles and basal cisterns are unremarkable. There are no masses or mass effect. The visualized orbits and globes are unremarkable. Impression: Persistent but improving subdural hematoma which has decreased in size and density. Images reviewed, interpreted, and dictated by Dr. Vikash Townsend. Transcribed by Sharmila Farris PA-C. Signed: 01/13/2025 * David Bolden, PT - 01/13/2025 11:49 AM EDT Images from the original note were not included. Inpatient Physical Therapy Treatment Patient Name: Prosper Douglas Date of : 1965 Date of Treatment: 01/13/25 Start Time 1119 Stop Time 1149 Session Duration 30 minutes General Visit Type: Treatment Approved by: Nurse Coronado Patient Disposition Upon Entry: Supine in bed, Call Light/Pull Cord in reach, All needs met and within reach, Nursing aware/notified, Bed Alarm applied , Fall mat placed, Yellow non-slip socks donned, Yellow fall-risk gown donned Patient Verified By: Name and Date of Precautions Weight-Bearing Status: No Restrictions Precautions: Fall risk Isolation Precautions: Standard Lines, tubes, drains, airway: Pure[place], telemetry Subjective Subjective: Patient agreeable to physical therapy treatment. Pain No - Patient not reporting pain at this time Cognition Overall cognitive status: Patient is awake and alert, attending to directions appropriately, demonstrating good problem solving skills, and aware of any deficits or impairments, if present. Objective Vitals Pre-intervention vitals Heart rate: 62 beats per minute Blood pressure: 125/85 mmHg SpO2: 99% O2: room air Functional Mobility Bed Mobility: Supine to Sit: contact guard assist, 1-person assist, HOB elevated, use of bed features, to the left Transfers Sit to Stand: minimal assistance, 1-person assist, gait belt used, rolling walker used Stand to Sit: contact guard assist, 1-person assist, gait belt used, rolling walker used Gait Gait Assistance: contact guard assist, minimal assistance, 1-person assist Assistive Device: Gait Belt, Rolling walker Distance: 76' Gait speed: Initially decreased but progressed to only slightly diminished. Deviation(s): increased trunk flexion, right foot flat, left foot flat Stair Management Unable to assess due to deconditioning and fatigue. Wheelchair Mobility Not assessed, patient ambulatory. AM-[facility] Basic Mobility Inpatient Short Form How much difficulty does the patient currently have: Turning over in bed (including adjusting bedclothes, sheets, and blankets)? (1) Total/Unable (not able to do the activity or can only perform the activity using assistive devices or requires assistance from another person, including supervision or cueing for safety) Sitting down on and standing up from a chair with arms (e.g., wheelchair, bedside commode, etc.)? (1) Total/Unable (not able to do the activity or can only perform the activity using assistive devices or requires assistance from another person, including supervision or cueing for safety) Moving from lying on back to sitting on side of bed? (1) Total/Unable (not able to do the activity or can only perform the activity using assistive devices or requires assistance from another person,including supervision or cueing for safety) How much help from another person does the patient currently need: Moving to and from a bed to a chair (including a wheelchair)? (3) A little (Minimal/Contact guard/Supervision/Setup) Need to walk in hospital room? (3) A little (Minimal/Contact guard/Supervision/Setup) Climbing 3-5 steps with a railing? (1) Total/Unable (Total assist/dependent) Score Raw score=10 t-Scale score=32.29 Standard error=3.42 CMS 0-100%=76.75% MDC=4.72 A raw score of >= 16 is significantly associated with increased odds of discharge to home in addition to consideration made for the patient's cognition and social determinants of health. Balance Static/dynamic sitting and static/dynamic standing balance grades Balance Grade Sitting Static Good - patient able to maintain balance without handhold support, limited postural sway Sitting Dynamic Good - patient accepts moderate challenge; able to maintain balance while picking object off floor Standing Static Fair - patient able to maintain balance with handhold support; may require occasional minimal assistance Standing Dynamic Fair - patient accepts minimal challenge; able to maintain balance while turning head/trunk Activity Tolerance Patient limited with activity/intervention due to fatigue, deconditioning, and weakness Treatment Patient performed supine to sit with CGA. Patient performed sit to stand with min A to achieve upright posture using Rwx. Patient ambulated 76' with min A of 1 initially and progressed to CGA with cueing for proper step length and maintaining appropriate distance from AD. Patient relies heavily on bilateral UE for balance using Rwx. Patient performed seated exercises as indicated below. LE therapeutic exercise ankle pumps, long-arc quad, seated marching in place completed for 1 set of 10 repetitions. Assessment Patient presenting with decreased activity tolerance, generalized weakness with functional activities, impaired dynamic balance with transfers, impaired dynamic balance with ambulation, and fatigue with physical exertion. Because of this, patient would have difficulty with independently performing bed mobility, transferring, ambulating on level surfaces, ambulating household distances, picking objects up off the floor, and deputy general counsel. These functional limitations put the patient at an increased risk for loss of independence with functional mobility and activities of daily living, falling, deconditioning, and decreased quality of life. Patient would benefit from skilled physical therapy services during length of stay for strengthening, balance training to decrease risk of falling, endurance training to improve activity tolerance, gait training, transfer training, and progression ofmobility. Problems: Decreased core stability, Decreased functional mobility, Decreased gait tolerance, Decreased strength, Decreased activity tolerance, Impaired standing balance, Impaired dynamic balance, Gait impairment Rehab potential: Good for stated goals Plan Treatment plan: Continue per POC. PT Frequency/Duration: 5x/week for 14 days Recommendations Discharge recommendations: Patient would benefit from 1-2 hours of multidisciplinary therapy per day upon discharge from acute care setting to assist with returning to prior level of functioning. DME recommendations: Patient has no DME/adaptive equipment discharge needs at this time. Goals [id number]: By the target date, patient will perform [id number] with modified independence, utilizing bed railing, to improve independence with bed mobility. [id number]: By the target date, patient will perform sit to stand with modified independence and rolling walker to improve independence with functional mobility. Transfer: By the target date, patient will perform stand-pivot transfer to a bedside commode, recliner chair, or wheelchair with modified independence and utilizing rolling walker, demonstrating ability to safely transfer while in hospital setting to improve independence with functional mobility. Gait: Patient will ambulate 150ft with minimal assistance and utilizing rolling walker in order to increase independence with ambulation and improve balance with ambulation and decrease risk of falling Target Date: 01/23/2025 Progress towards goals: progressing Education Patient educated on safety, use of call button, therapeutic exercise, ambulation, transfers, bed mobility, need for assistance, and risk for falls and following, they were able to demonstrate understanding. No further questions or concerns stated. Interdisciplinary Communication Following treatment, therapist communicated with nursing regarding patient's performance during physical therapy session, regarding patient's level of assistance needed during transfers for nursing mobility, and regarding patient's discharge disposition. Patient Disposition Upon Leaving Patient in bedside chair, Call Light/Pull Cord in reach, All needs met and within reach, Nursing aware/notified, Feet elevated, Fall mat placed, Yellow non-slip socks donned, Yellow fall-risk gown donned If this patient discharges prior to next therapy session, this note serves as the patient's discharge summary. Electronically signed by David Bolden PT - 01/13/25 - 3:41 PM EDT * Carlee Sutton MD - 01/12/2025 3:46 PM EDT [facility] PROGRESS NOTE: Patient: Prosepr Douglas Date: 01/12/2025 ASSESSMENT and PLAN: Prosper Douglas is a 59 y.o. male with PMHx of depression, alcohol dependence, and malnutritionwith iron deficiency anemia who presented on 01/05/2025 after a falls with ORTIZ and other complaints. Workup revealed. DIAGNOSIS: Right SDH-Right small cerebellar hemorrhage and small amount of hemorrhage layering along the left tentorium. - 0n 01/12/25, the patient was having worsening persistent headaches., Head CT done revealed Persistent but improving subdural hematoma which has decreased in size. and density. - S/p platelet transfusions, - fall risk. Fall precautions Pancytopenia-resolved - Alcohol induced macrocytosis. - Normally pt has a hx of Thrombocytopenia - check iron stores as well as Vitamin b12, Folate - stable hematologic indices. - Platelets are WNL today Etoh Use Disorder Hypomagnesiemia Due to poor proper nutrition - Monitor for signs of Alcohol withdrawal. Continue telemonitoring - Continue Thiamine, MVI and Folate. Replete lytes as indicated. - Monitor Mg and Phos stores, given the risk of refeeding syndrome. Am labs ordered. HTN - Essential and uncontrolled and very labile. Pressure earlier today at 10:30 AM was 149/101 and anhour later it was 90/58. Norvasc reduced back to 2.5 mg - Must control BP effectively given SDH - Keep SBP btw 120-130. 5. Elevated Mildly transaminases - Due to Alcoholic use -improving -related to underlying excessive alcohol use -monitor 6 Hypomagnesemia, - Due to alcoholism/poor nutrition - typically seen in refeeding syndrome - monitor and replete serially 7 Protein Calorie Malnutrition -Hypoalbuminemia Nutrition supplements 8 Left eye conjunctivitis- resolved - likely bacterial - reassess 9. General weakness Alcohol induced - Non focal weakness. - continue Thiamine. Engage in PT/Ot - will need SNF VTE Prophylaxis: Mechanical VTE prophylaxis CODE STATUS : Same as listed above on Epic Facesheet Previous Living Condition: Home Expected Disposition: To be Determined Expected Discharge Date: To be determined pending rate of clinical recovery, general progress, and response to therapy with evolving data and workup Subjective Patient seen and examined at bedside this AM. Patient initially denies any headaches, SOB, chest discomfort, neck pain, jaw pain. Later on nursing staff notified me of signs some persistent headachesthe patient complained about. Objective Vitals: Temp: [97.3 ??F (36.3 ??C)-98.6 ??F (37 ??C)] 97.3 ??F (36.3 ??C) Pulse: [58-64] 64 Resp: [16-17] 17 BP: (90-166)/(58-101) 90/58 Intake/Output: No intake or output data in the 24 hours ending 01/12/25 1547 Physical exam: General: Looks comfortable and no distress, nontoxic-appearing. Resting comfortably HEENT: Head atraumatic, normal cephalic. Pupil bilateral equal and reacting. Conjunctive are normal. Neck: Supple. No JVD noted CVS: S1, S2, no S3 or S4. Regular rate and rhythm no murmur. Lungs: Bilateral air entry. Normal chest expansion. Clear to auscultation bilaterally. Abdomen: Soft. Nontender. Positive bowel sounds. 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 No gross neurological focal deficits. Musculoskeletal: Range of motion is normal. No pedal edema. Patient moving all 4 extremities no focal deficits Skin: Warm and dry on exposed surface. Psychiatry: Mood appropriate Medications: Scheduled Meds: [START ON 01/13/2025] amLODIPine 2.5 mg oral Daily cloNIDine 0.1 mg oral TID 0.1 mg at 01/12/25 1026 erythromycin 0.5 inch left eye Q4H 1 g at 01/12/25 1349 folic acid 1 mg oral Daily 1 mg at 01/12/25 1025 LORazepam 1 mg oral Q6H 1 mg at 01/12/25 1032 magnesium oxide 200 mg oral Daily with breakfast 200 mg at 01/12/25 1032 metoprolol tartrate 50 mg oral BID 50 mg at 01/12/25 1026 multivitamin 1 tablet oral Daily 1 tablet at 01/12/25 1025 pantoprazole 40 mg oral Daily 40 mg at 01/12/25 1025 potassium chloride 40 mEq oral Once thiamine 200 mg oral Daily 200 mg at 01/12/25 1024 Continuous Infusions: Current Facility-Administered Medications Medication Dose Route Frequency Provider Last Rate Last Admin acetaminophen (TYLENOL) tablet 1,000 mg 1,000 mg oral Q6H PRN Jarek Connor MD 1,000 mg at 01/12/25 1025 [START ON 01/13/2025] amLODIPine (NORVASC) tablet 2.5 mg 2.5 mg oral Daily Carlee Sutton MD cloNIDine (CATAPRES) tablet 0.1 mg 0.1 mg oral Q4H PRN Jarek Connor MD 0.1 mg at 01/10/25 0851 cloNIDine (CATAPRES) tablet 0.1 mg 0.1 mg oral TID Minna Osuna MD 0.1 mg at 01/12/25 1026 diazePAM (VALIUM) injection 5 mg 5 mg intravenous Q5 Min PRN Jarek Connor MD 5 mg at 01/06/25 0139 docusate sodium (COLACE) capsule 100 mg 100 mg oral BID PRN Jarek Connor MD erythromycin 5 mg/gram (0.5 %) ophthalmic ointment 1 g 0.5 inch left eye Q4H Jarek Connor MD 1 g at 01/12/25 1349 folic acid (FOLVITE) tablet 1 mg 1 mg oral Daily Minna Osuna MD 1 mg at 01/12/25 1025 hydrALAZINE (APRESOLINE) injection 10 mg 10 mg intravenous Q4H PRN Jarek Connor MD 10 mg at 01/12/25 0019 LORazepam (ATIVAN) injection 1 mg 1 mg intravenous Q30 Min PRN Minna Osuna MD Or LORazepam (ATIVAN) tablet 1 mg 1 mg oral Q30 Min PRN Minna Osuna MD LORazepam (ATIVAN) injection 2 mg 2 mg intravenous Q30 Min PRN Minna Osuna MD Or LORazepam (ATIVAN) tablet 2 mg 2 mg oral Q30 Min PRN Minna Osuna MD LORazepam (ATIVAN) injection 3 mg 3 mg intravenous Q30 Min PRN Minna Osuna MD Or LORazepam (ATIVAN) tablet 3 mg 3 mg oral Q30 Min PRN Minna Osuna MD LORazepam (ATIVAN) injection 4 mg 4 mg intravenous Q30 Min PRN Minna Osuna MD Or LORazepam (ATIVAN) tablet 4 mg 4 mg oral Q30 Min PRN Minna Osuna MD LORazepam (ATIVAN) tablet 1 mg 1 mg oral Q8H PRN Jarek Connor MD LORazepam (ATIVAN) tablet 1 mg 1 mg oral Q4H PRN Carlee Sutton MD LORazepam (ATIVAN) tablet 1 mg 1 mg oral Q6H Minna Osuna MD 1 mg at 01/12/25 1032 magnesium oxide (MAG-OX) tablet 200 mg 200 mg oral Daily with breakfast Carlee Sutton MD 200 mg at 01/12/25 1032 magnesium sulfate IVPB 2 g in sterile water 50 mL (premix) 2 g intravenous Daily PRN Jarek Connor MD magnesium sulfate IVPB 2 g in sterile water 50 mL (premix) 2 g intravenous BID PRN Jarek Connor MD melatonin tablet 5 mg 5 mg oral Every Night PRN Jarek Connor MD metoprolol tartrate (LOPRESSOR) tablet 50 mg 50 mg oral BID Minna Osuna MD 50 mg at 01/12/25 1026 morphine injection 2 mg 2 mg intravenous Q4H PRN Jarek Connor MD multivitamin (THERAGRAN) tablet 1 tablet 1 tablet oral Daily Carlee Sutton MD 1 tablet at 01/12/25 1025 naloxone (NARCAN) injection 0.2 mg 0.2 mg intravenous Q2 Min PRN Jarek Connor MD ondansetron (ZOFRAN-ODT) disintegrating tablet 4 mg 4 mg oral Q8H PRN Jarek Connor MD Or ondansetron (ZOFRAN) injection 4 mg 4 mg intravenous Q4H PRN Jarek Connor MD pantoprazole (PROTONIX) EC tablet 40 mg 40 mg oral Daily Jarek Connor MD 40 mg at 01/12/25 1025 potassium chloride (KLOR-CON) ER tablet 40 mEq 40 mEq oral 4x Daily PRN Jarek Connor MD 40 mEq at01/10/25 0911 potassium chloride (KLOR-CON) ER tablet 40 mEq 40 mEq oral Once Carlee Sutton MD potassium chloride IVPB 10 mEq in 100 mL sterile water (premix) 10 mEq intravenous Q1H PRN Jarek Connor MD thiamine tablet 200 mg 200 mg oral Daily Carlee Sutton MD 200 mg at 01/12/25 1024 PRN Meds: @MEDSPRN@ Labs: Results for orders placed or performed during the hospital encounter of 01/05/25 (from the past 24 hours) Magnesium Status: Normal Collection Time: 01/12/25 3:22 AM Result Value Ref Range Magnesium 1.6 1.6 - 2.6 mg/dL Phosphorus Status: Normal Collection Time: 01/12/25 3:22 AM Result Value Ref Range Phosphorus 3.2 2.5 - 4.5 mg/dL Basic Metabolic Panel Status: Abnormal Collection Time: 01/12/25 3:22 AM Result Value Ref Range Sodium 137 136 - 145 meq/L Potassium 3.8 3.4 - 5.1 meq/L CO2 22 22 - 29 meq/L Chloride 104 98 - 112 meq/L Glucose 99 74 - 100 mg/dL BUN 24.8 8.4 - 25.7 mg/dL Creatinine 0.74 0.72 - 1.25 mg/dL BUN/Creatinine 34 (H) 8 - 20 Calcium 9.2 8.4 - 10.2 mg/dL Anion Gap 15 (H) 4 - 12 eGFR (mL/min/1.73m2) 104 >=60 mL/min/1.73m2 Osmolality Calc 278.2 mOsm/kg Radiology: Radiology Results (last 3 days) Procedure Component Value Units Date/Time CT brain without IV contrast [[id number]] Collected: 01/12/25 1422 Order Status: Completed Updated: 01/12/25 1441 Narrative: CT HEAD WITHOUT CONTRAST HISTORY: Follow-up subdural hemorrhage COMPARISON:January 06, 2025 TECHNIQUE: Thin-section axial images of the brain were performed without contrast. This study was performed with techniques to keep radiation doses as low as reasonably achievable, (ALARA). Individualized dose reduction techniques using automated exposure control or adjustment of mA and/or kV according to the patient size were employed. FINDINGS: The visualized paranasal sinuses demonstrate no abnormalities. The mastoid air cells are unremarkable. Bone windows demonstrate no fractures or other abnormalities. There is mild to moderate atrophy noted. Again identified is a mixed attenuation right subdural hematoma. There is some residual acute hemorrhage in the temporal occipital region. This previously measured up to 7.5 mm, now measures up to 5 mm. The acute component is less dense than previous. No evidence of midline shift. The ventricles and basal cisterns are unremarkable. There are no masses or mass effect. The visualized orbits and globes are unremarkable. Impression: Persistent but improving subdural hematoma which has decreased in size and density. Images reviewed, interpreted, and dictated by Dr. Vikash Townsend. Transcribed by Sharmila Farris PA-C. Signed: 01/12/2025 * Lele Escobedo RN - 01/12/2025 2:52 PM EDT Discharge Plan Progress Note Chart screened. Noted PT & OT recommendations for IRF. Spoke with patient. Discussed D/C planning options. Patient agrees with IRF and prefers to use [facility]. Referral forwarded to [facility]. Case Management will follow. Lele Escobedo RN * CHRISTA Ruiz/Viet - 01/12/2025 2:47 PM EDT Images from the original note were not included. [address] [facility] Inpatient Occupational Therapy Treatment Note Patient Name: Prosper Douglas Date of : 1965 Date of Treatment: 01/12/25 Start Time: 14:47 Stop Time: 15:19 Session Duration: 32 minutes This patient is a 59 y.o. male admitted on 01/05/2025 with Subdural hematoma (HCC) [S06.5XAA] Thrombocytopenia (HCC) [D69.6] SDH (subdural hematoma) (HCC) [S06.5XAA] Cerebellar stroke (HCC) [I63.9] Conjunctivitis of left eye, unspecified conjunctivitis type [H10.9]. Past Medical History: Diagnosis Date Alcohol abuse GERD (gastroesophageal reflux disease) Hypertension Past Surgical History: Procedure Laterality Date ESOPHAGECTOMY General Visit type: Treatment Approved by: Nurse Coronado Patient disposition upon entry: Supine in bed, All needs met and within reach, Call light/pull cordin reach, Fall mats in place, Nursing aware/notified, Side rails up Co-treated by: PT Precautions Weightbearing status: No restrictions Precautions: Fall risk Isolation precautions: Standard Subjective Subjective: Pt agreeable Pain No-patient has no complaints of pain Cognition Cognition: Overall cognitive status: Patient is awake and alert, attending to directions appropriately, demonstrating good problem solving skills, and aware of any deficits or impairments, if present. Following commands: Follows one step commands with increased time Follows one step commands with repetition Objective Vitals Pre-intervention vitals Heart rate: 56 beats per minute Blood pressure: 112/72 mmHg Post-intervention vitals Heart rate: 55 beats per minute Blood pressure: 105/71 mmHg SpO2: 97% O2 : room air Bed Mobility Supine to sit: Moderate assistance, 1 person assist, Head of bed elevated, Use of bedrails Sit to supine: Standby assist, 1 person assist, Head of bed elevated Transfers Sit to stand:Minimal assistance, 1 person assist, Gait belt used, Rolling walker used Stand to sit:Minimal assistance, 1 person assist, Gait belt used, Rolling walker used Functional mobility:Minimal assistance, Moderate assistance, 1 person assist, Gait belt used, Rolling walker used ADLs Grooming:Setup, Seated in chair Balance Static sitting balance:Fair: Patient able to maintain balance with handheld support, may require occasional minimal assistance Dynamic sitting balance:Poor: Patient unable to accept challenge or move without loss of balance Static standing balance:Poor: Patient required handheld support and moderate to maximal support to maintain position Dynamic standing balance:Poor: Patient unable to accept challenge or move without loss of balance Activity Tolerance Patient limited with activity/intervention due to fatigue, deconditioning, and weakness Treatment Pt received supine in bed upon OT arrival. Pt completed sup-sit mod A with HOB elevated and use of hand rails. Pt completed sit-stand min A from bed. Pt completed functional mobility less than HH distance min-mod A with use of rolling walker. Assist needed for walker management, verbal cues for taking larger steps, increases assist needed during turning and periodic LOB. Pt completed stand-sit tochair min A. Pt completed ADL tasks of washing face and brushing teeth seated in bedside chair withset up A. Pt completed bed-chair transfer mod A. Pt completed sit-sup SBA. Pt left supine in bed, call light and all needs within reach at conclusion of OT treatment session. Assessment Assessment Patient demonstrated improved performance during this treatment session. Patient continues to present with decreased strength, decreased endurance, decreased balance. These deficits currently impact the patient's ability to perform ADLs and functional mobility, putting them at an increased risk forincreased falls, decreased quality of life, poor outcomes, further functional decline, further decreased strength. Patient will benefit from continued OT services to address the aforementioned functional deficits. Plan Recommendations Discharge recommendations: Patient would benefit from 3 hours of intensive multidisciplinary therapy per day to maximize functional outcomes and address functional limitations to return to highest level of functioning. DME recommendations: Patient would benefit from walker, rolling at discharge. Treatment Plan: Continue OT POC OT Frequency/Duration: 3x/week for 14 days Goals Feeding: feeding, sitting edge of bed with modified independence Grooming: grooming , sitting edge of bed with modified independence Bed mobility: supine to sit with minimal assistance Functional transfers: ambulatory transfer with minimal assistance and rolling walker Target Date: 01/23/2025 Goals were discussed with patient Progress towards goals: progressing Education Patient educated on safety, use of call light, role of occupational therapy, patient's plan of care, ADLs, functional mobility and following, they were able to verbalize understanding. Interdisciplinary Communication Following treatment, therapist communicated with nursing regarding patient's performance during therapy session, patient's level of assistance with transfers for nursing mobility. Patient Disposition Upon Leaving Patient Disposition: Supine in bed, All needs met and within reach, Call light/pull cord in reach, Fall mats in place, Nursing aware/notified, Side rails up If this patient discharges prior to next therapy session, this note serves as the patient's discharge summary. Electronically signed by KALEB Ruiz - 01/12/2025 - 3:42 PM EDT * Bessy Rutherford, PT - 01/12/2025 2:46 PM EDT Images from the original note were not included. Inpatient Physical Therapy Treatment Patient Name: Prosper Douglas Date of : 1965 Date of Treatment: 01/12/25 Start Time 1446 Stop Time 1518 Session Duration 32 minutes General Visit Type: Treatment Approved by: Nurse Coronado Patient Disposition Upon Entry: Supine in bed, Nursing aware/notified Patient Verified By: Name and Date of Co-treated by: OT Precautions Weight-Bearing Status: No Restrictions Precautions: Fall risk Isolation Precautions: Standard Lines, tubes, drains, airway: Pure[place], telemetry Subjective Subjective: Patient agreeable to physical therapy treatment. Pain No - Patient not reporting pain at this time Cognition Arousal/Alertness: Appropriate response to stimuli Attention Span: Attends with cues to redirect Following commands: Able to follow commands appropriately with verbal cueing Safety Judgment: Decreased awareness of need for safety Objective Vitals Pre-intervention vitals Heart rate: 56 beats per minute Blood pressure: 112/72 mmHg room air Post-intervention vitals Heart rate: 55 beats per minute Blood pressure: 105/71 mmHg SpO2: 98% O2 : room air Functional Mobility Bed Mobility: Supine to Sit: moderate assistance, HOB elevated, use of bed features Sit to Supine: stand by assist , HOB flat, use of bed features Transfers Sit to Stand: minimal assistance, 2-person assist, gait belt used, rolling walker used (initial stand from EOB) Stand to Sit: minimal assistance, 1-person assist, gait belt used, rolling walker used Bed to/from Chair: minimal assistance, 1-person assist, gait belt used, rolling walker used, chair to bed to the L Gait Gait Assistance: minimal assistance, moderate assistance x 1 + SBA x 2nd person to follow with chair for safety Assistive Device: Gait Belt, Rolling walker Distance: 44 ft Gait speed: slow cristela Deviation(s): narrow base of support, Comment: posterior lean, short step length and increased trunk flexion Stair Management Unable to assess due to deconditioning, weakness, and impaired balance . Wheelchair Mobility Not assessed, patient ambulatory. AM-PAC Basic Mobility Inpatient Short Form How much difficulty does the patient currently have: Turning over in bed (including adjusting bedclothes, sheets, and blankets)? (2) A lot (can do the activity without assistive devices or help from another person, but requires A LOT more effort and/ortime) Sitting down on and standing up from a chair with arms (e.g., wheelchair, bedside commode, etc.)? (1) Total/Unable (not able to do the activity or can only perform the activity using assistive devices or requires assistance from another person, including supervision or cueing for safety) Moving from lying on back to sitting on side of bed? (1) Total/Unable (not able to do the activity or can only perform the activity using assistive devices or requires assistance from another person,including supervision or cueing for safety) How much help from another person does the patient currently need: Moving to and from a bed to a chair (including a wheelchair)? (2) A lot (Maximal/Moderate assist) Need to walk in hospital room? (3) A little (Minimal/Contact guard/Supervision/Setup) Climbing 3-5 steps with a railing? (1) Total/Unable (Total assist/dependent) Score Raw score=10 t-Scale score=32.29 Standard error=3.42 [facility] 0-100%=76.75% MDC=4.72 A raw score of >= 16 is significantly associated with increased odds of discharge to home in addition to consideration made for the patient's cognition and social determinants of health. Balance Static/dynamic sitting and static/dynamic standing balance grades Balance Grade Sitting Static Fair - patient able to maintain balance with handhold support; may require occasional minimal assistance Sitting Dynamic Poor - patient unable to accept challenge or move without loss of balance Standing Static Poor - patient requires handhold support and moderate to maximal assistance to maintain position Standing Dynamic Poor - patient unable to accept challenge or move without loss of balance Activity Tolerance Patient limited with activity/intervention due to deconditioning and weakness Treatment Pt assisted supine to sit. Pt sat on EOB x 3-5 min with mod A at first then progressed to SBA for static sitting, min A for dynamic sitting balance after he was assisted with scooting out to get feetto contact the floor. Pt performed APs and LAQs x 10 reps each on BLE, but required mod verbal cuesfor sequencing, noting decreased coordination. Pt assisted sit to stand, required verbal & tacti le cues to correct posterior lean. Pt then ambulated as described above. Pt encouraged to ambulate a 2nd repetition, but reported he was too fatigued. Pt completed stand to sit in bedside chair and completed ADL task while seated with OT while PT changed bed linens. Pt then assisted with transfer chair to bed and sit to supine. Pt chose to remain in R sidelying in bed. Assessment Patient presenting with generalized weakness with functional activities, impaired dynamic balance with transfers, impaired dynamic balance with ambulation, impaired sitting balance, and fatigue with physical exertion. Pt is a high fall risk, but is participating and progressing. He was able to ambulate an increased distance this session, but with a posterior lean and LOB with turns, requiring modA at times. Pt can benefit from continued treatment during LOS to address stated deficits and work toward established goals. Problems: Decreased functional mobility, Decreased gait tolerance, Decreased strength, Decreased activity tolerance, Impaired sitting balance, Impaired standing balance, Impaired dynamic balance, Gait impairment, Impaired coordination Rehab potential: Good for stated goals Plan Treatment plan: Continue per POC. PT Frequency/Duration: 5x/week for 14 days Recommendations Discharge recommendations: Patient would benefit from 3 hours of intensive multidisciplinary therapy per day to maximize functional outcomes and address functional limitations to return to highest level of functioning. DME recommendations: No needs if discharging to rehab facility Goals [place]-of-tgo: By the target date, patient will perform [id number] with modified independence, utilizing bed railing, to improve independence with bed mobility. [id number]: By the target date, patient will perform sit to stand with modified independence and rolling walker to improve independence with functional mobility. Transfer: By the target date, patient will perform stand-pivot transfer to a bedside commode, recliner chair, or wheelchair with modified independence and utilizing rolling walker, demonstrating ability to safely transfer while in hospital setting to improve independence with functional mobility. Gait: Patient will ambulate 150ft with minimal assistance and utilizing rolling walker in order to increase independence with ambulation and improve balance with ambulation and decrease risk of falling Target Date: 01/23/2025 Progress towards goals: progressing Education Patient educated on safety, use of call button, role of physical therapy, therapeutic exercise, ambulation, transfers, bed mobility, and need for assistance and following, they were able to verbalizeand demonstrate understanding. No further questions or concerns stated. Interdisciplinary Communication Following treatment, therapist communicated with nursing by completing communication whiteboard in room and regarding patient's performance during physical therapy session. Patient Disposition Upon Leaving Call Light/Pull Cord in reach, All needs met and within reach, Nursing aware/notified, R sidelying in bed If this patient discharges prior to next therapy session, this note serves as the patient's discharge summary. Electronically signed by Bessy Rutherford, PT - 01/12/25 - 3:25 PM EDT * Ivonne Medina - 01/12/2025 1:58 PM EDT Patient offered to get up to chair to mobilized and patient declined. * Chaplain Maritza - 01/12/2025 1:15 PM EDT Spiritual Care Progress Note Comments: Visited patient in room. He shared about his falls and said that he is hopeful he can avoid any more in the future. Patient said a fall caused him to have a brain bleed and he is fearful that it might not have stopped and wants a second CT scan. He was encouraged to talk to his RN about it. Patient said that he was ok at the time and wanted to sleep, so visit was concluded. Invited hiim to request achaplain if he would like another visit. Chaplain Maritza 01/12/2025 3:26 PM * Carlee Sutton MD - 01/11/2025 3:09 PM EDT [facility] MEDICINE PROGRESS NOTE: Patient: Prosper Douglas Date: 01/11/2025 ASSESSMENT and PLAN: Prosper Douglas is a 59 y.o. male with PMHx of depression, alcohol dependence, and malnutritionwith iron deficiency anemia who presented on 01/05/2025 after a falls with ORTIZ and other complaints. Workup revealed. DIAGNOSIS: Right SDH-Right small cerebellar hemorrhage and small amount of hemorrhage layering along the left tentorium. - S/p platelet transfusions, - fall risk. Fall precautions Pancytopenia-resolved - Alcohol induced macrocytosis. - Normally pt has a hx of Thrombocytopenia - check iron stores as well as Vitamin b12, Folate - stable hematologic indices. - Platelets are WNL today Etoh Use Disorder Hypomagnesiemia Due to poor proper nutrition - Monitor for signs of Alcohol withdrawal. Continue telemonitoring - Continue Thiamine, MVI and Folate. Replete lytes as indicated. - Monitor Mg and Phos stores, given the risk of refeeding syndrome. Am labs ordered. HTN - Essential - Must control BP effectively given SDH - Keep SBP btw 120-130. 5. Elevated Mildly transaminases - Due to Alcoholic use -improving -related to underlying excessive alcohol use -monitor 6 Hypomagnesemia, - Due to alcoholism/poor nutrition - typically seen in refeeding syndrome - monitor and replete serially 7 Protein Calorie Malnutrition -Hypoalbuminemia Nutrition supplements 8Left eye conjunctivitis- resolved - improviing. - likely bacterial - reassess 9. General weakness Alcohol induced - Non focal weakness. - continue Thiamine. Engage in PT/Ot - will need SNF VTE Prophylaxis: Mechanical VTE prophylaxis CODE STATUS : Same as listed above on Epic Facesheet Previous Living Condition: Home Expected Disposition: To be Determined Expected Discharge Date: To be determined pending rate of clinical recovery, general progress, and response to therapy with evolving data and workup Subjective Patient seen and examined at bedside this AM. PT denies any pain anywhere. Objective Vitals: Temp: [97.5 ??F (36.4 ??C)-98.4 ??F (36.9 ??C)] 98.1 ??F (36.7 ??C) Pulse: [60-66] 66 Resp: [16-18] 16 BP: (90-155)/(57-99) 90/57 Intake/Output: No intake or output data in the 24 hours ending 01/11/25 1509 Physical exam: General: Looks comfortable and no distress, non toxic, on RA HEENT: Head atraumatic, normal cephalic. Pupil bilateral equal and reacting. Conjunctive are normal. Neck: Supple. No JVD noted CVS: S1, S2, no S3 or S4. Regular rate and rhythm no murmur. Lungs: Bilateral air entry. Normal chest expansion. Clear to auscultation bilaterally. Abdomen: Soft. Nontender. Positive bowel sounds. 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 No gross neurological focal deficits. Musculoskeletal: Range of motion is normal. No pedal edema. Skin: Warm and dry on exposed surface. Psychiatry: Mood appropriate Medications: Scheduled Meds: cloNIDine 0.1 mg oral TID 0.1 mg at 01/11/25 0935 erythromycin 0.5 inch left eye Q4H 1 g at 01/11/25 1204 folic acid 1 mg oral Daily 1 mg at 01/11/25 0936 LORazepam 1 mg oral Q6H 1 mg at 01/11/25 0935 magnesium oxide 200 mg oral Daily with breakfast 200 mg at 01/11/25 1114 metoprolol tartrate 50 mg oral BID 50 mg at 01/11/25 0935 pantoprazole 40 mg oral Daily 40 mg at 01/11/25 0936 potassium chloride 40 mEq oral Once thiamine 200 mg oral Daily 200 mg at 01/11/25 0936 Continuous Infusions: Current Facility-Administered Medications Medication Dose Route Frequency Provider Last Rate Last Admin acetaminophen (TYLENOL) tablet 1,000 mg 1,000 mg oral Q6H PRN Jarek Connor MD 1,000 mg at 01/11/25 1115 cloNIDine (CATAPRES) tablet 0.1 mg 0.1 mg oral Q4H PRN Jarek Connor MD 0.1 mg at 01/10/25 0851 cloNIDine (CATAPRES) tablet 0.1 mg 0.1 mg oral TID Minna Osuna MD 0.1 mg at 01/11/25 0935 diazePAM (VALIUM) injection 5 mg 5 mg intravenous Q5 Min PRN Jarek Connor MD 5 mg at 01/06/25 0139 docusate sodium (COLACE) capsule 100 mg 100 mg oral BID PRN Jarek Connor MD erythromycin 5 mg/gram (0.5 %) ophthalmic ointment 1 g 0.5 inch left eye Q4H Jarek Connor MD 1 g at 01/11/25 1204 folic acid (FOLVITE) tablet 1 mg 1 mg oral Daily Minna Osuna MD 1 mg at 01/11/25 0936 hydrALAZINE (APRESOLINE) injection 10 mg 10 mg intravenous Q4H PRN Jarek Connor MD 10 mg at 01/09/25 2106 LORazepam (ATIVAN) injection 1 mg 1 mg intravenous Q30 Min PRN Minna Osuna MD Or LORazepam (ATIVAN) tablet 1 mg 1 mg oral Q30 Min PRN Minna Osuna MD LORazepam (ATIVAN) injection 2 mg 2 mg intravenous Q30 Min PRN Minna Osuna MD Or LORazepam (ATIVAN) tablet 2 mg 2 mg oral Q30 Min PRN Minna Osuna MD LORazepam (ATIVAN) injection 3 mg 3 mg intravenous Q30 Min PRN Minna Osuna MD Or LORazepam (ATIVAN) tablet 3 mg 3 mg oral Q30 Min PRN Minna Osuna MD LORazepam (ATIVAN) injection 4 mg 4 mg intravenous Q30 Min PRN Minna Osuna MD Or LORazepam (ATIVAN) tablet 4 mg 4 mg oral Q30 Min PRN Minna Osuna MD LORazepam (ATIVAN) tablet 1 mg 1 mg oral Q8H PRN Jarek Connor MD LORazepam (ATIVAN) tablet 1 mg 1 mg oral Q4H PRN Carlee Sutton MD LORazepam (ATIVAN) tablet 1 mg 1 mg oral Q6H Minna Osuna MD 1 mg at 01/11/25 0935 magnesium oxide (MAG-OX) tablet 200 mg 200 mg oral Daily with breakfast Carlee Sutton MD 200 mg at 01/11/25 1114 magnesium sulfate IVPB 2 g in sterile water 50 mL (premix) 2 g intravenous Daily PRN Jarek Connor MD magnesium sulfate IVPB 2 g in sterile water 50 mL (premix) 2 g intravenous BID PRN Jarek Connor MD melatonin tablet 5 mg 5 mg oral Every Night PRN Jarek Connor MD metoprolol tartrate (LOPRESSOR) tablet 50 mg 50 mg oral BID Minna Osuna MD 50 mg at 01/11/25 0935 morphine injection 2 mg 2 mg intravenous Q4H PRN Jarek Connor MD naloxone (NARCAN) injection 0.2 mg 0.2 mg intravenous Q2 Min PRN Jarek Connor MD ondansetron (ZOFRAN-ODT) disintegrating tablet 4 mg 4 mg oral Q8H PRN Jarek Connor MD Or ondansetron (ZOFRAN) injection 4 mg 4 mg intravenous Q4H PRN Jarek Connor MD pantoprazole (PROTONIX) EC tablet 40 mg 40 mg oral Daily Jarek Connor MD 40 mg at 01/11/25 0936 potassium chloride (KLOR-CON) ER tablet 40 mEq 40 mEq oral 4x Daily PRN Jarek Connor MD 40 mEq at01/10/25 0911 potassium chloride (KLOR-CON) ER tablet 40 mEq 40 mEq oral Once Carlee Sutton MD potassium chloride IVPB 10 mEq in 100 mL sterile water (premix) 10 mEq intravenous Q1H PRN Jarek Connor MD thiamine tablet 200 mg 200 mg oral Daily Carlee Sutton MD 200 mg at 01/11/25 0936 PRN Meds: @MEDSPRN@ Labs: Results for orders placed or performed during the hospital encounter of 01/05/25 (from the past 24 hours) CBC with automated diff Status: Abnormal Collection Time: 01/11/25 2:53 AM Result Value Ref Range WBC 6.4 4.2 - 9.1 K/??L RBC 3.43 (L) 4.63 - 6.08 M/??L Hemoglobin 12.0 (L) 13.7 - 17.5 GM/DL Hematocrit 36.9 (L) 40.1 - 51.0 % MCV 108 (H) 79 - 92 fL MCH 35.0 (H) 25.7 - 32.2 pg MCHC 32.5 32.3 - 36.5 GM/DL RDW 13.7 11.6 - 14.4 % Platelets 193 140 - 375 K/CU MM MPV 9.2 (L) 9.4 - 12.4 fL NRBC Absolute <0.01 0 - 0.012 K/ul Comprehensive metabolic panel Status: Abnormal Collection Time: 01/11/25 2:53 AM Result Value Ref Range Sodium 135 (L) 136 - 145 meq/L Potassium 4.2 3.4 - 5.1 meq/L Chloride 104 98 - 112 meq/L CO2 21 (L) 22 - 29 meq/L Calcium 9.3 8.4 - 10.2 mg/dL Glucose 113 (H) 74 - 100 mg/dL BUN 23.3 8.4 - 25.7 mg/dL Creatinine 0.69 (L) 0.72 - 1.25 mg/dL BUN/Creatinine 34 (H) 8 - 20 eGFR (mL/min/1.73m2) 107 >=60 mL/min/1.73m2 Albumin 2.9 (L) 3.5 - 5.0 g/dL Alkaline Phosphatase 47 40 - 150 U/L ALT 117 (H) <=45 U/L AST 44 (H) 11 - 34 U/L Total Bilirubin 0.5 0.2 - 1.2 mg/dL Protein, Total 6.9 6.4 - 8.3 g/dL Globulin 4.0 2.5 - 4.1 g/dL Anion Gap 14 (H) 4 - 12 A/G Ratio 0.7 0.7 - 1.9 Osmolality Calc 274.7 mOsm/kg Magnesium Status: Normal Collection Time: 01/11/25 2:53 AM Result Value Ref Range Magnesium 1.7 1.6 - 2.6 mg/dL Phosphorus Status: Normal Collection Time: 01/11/25 2:53 AM Result Value Ref Range Phosphorus 4.1 2.5 - 4.5 mg/dL Manual Differential Status: Abnormal Collection Time: 01/11/25 2:53 AM Result Value Ref Range Total Counted 100 % Neutros (manual) 61 50 - 65 % % Bands (manual) 2 % % Lymphs (manual) 17 (L) 24 - 44 % % Monos (manual) 14 (H) 4 - 5 % % Eos (manual) 6 (H) 0 - 3 % RBC Morphology abnormal (A) Normal Platelet Estimate Adequate Adequate Anisocytosis 1+ Hypochromia 1+ Polychromasia 1+ Macrocytes 1+ Ovalocytes 1+ ANC# 4.03 K/??L Radiology: Radiology Results (last 3 days) No results found for the last 72 hours. Signed: 01/11/2025 * Adrian Meza, PT - 01/11/2025 11:02 AM EDT Images from the original note were not included. Inpatient Physical Therapy Treatment Patient Name: Prosper Douglas Date of : 1965 Date of Treatment: 01/11/25 Start Time 1029 Stop Time 1111 Session Duration 42 minutes General Visit Type: Treatment Approved by: Nurse Jerry Patient Disposition Upon Entry: Supine in bed, Call Light/Pull Cord in reach, All needs met and within reach, Nursing aware/notified, HOB >30 degrees, Side rails up, Bed Alarm applied , Fall mat placed, Yellow non-slip socks donned, Yellow fall-risk gown donned Patient Verified By: Name and Date of Co-treated by: OT Assisted by: electronic train control technician Precautions Weight-Bearing Status: No Restrictions Precautions: Fall risk , R SDH (frontal/parietal) Isolation Precautions: Standard Lines, tubes, drains, airway: nasal cannula Subjective Subjective: Patient agreeable to physical therapy treatment. Pain No - Patient not reporting pain at this time Cognition Overall cognitive status: Patient is awake and alert, attending to directions appropriately, demonstrating good problem solving skills, and aware of any deficits or impairments, if present. Comment: slight delay in responses Objective Vitals Pre 109/62 HR 73 O2 sat on 3 l/m 93 Functional Mobility Bed Mobility: Supine to Sit: moderate assistance, 1-person assist, 2-person assist, HOB elevated, use of bed features, Comment: extra time needed Transfers Sit to Stand: minimal assistance, 2-person assist, gait belt used, rolling walker used Stand to Sit: minimal assistance, gait belt used, rolling walker used Gait Gait Assistance: minimal assistance, 2-person assist Assistive Device: Gait Belt, Rolling walker Distance: 18' Gait speed: decreased Deviation(s): wide base of support, decreased step length and foot clearance, assist to wt shift. Stair Management No stair goal Wheelchair Mobility Not assessed, patient ambulatory. AM-PAC Basic Mobility Inpatient Short Form How much difficulty does the patient currently have: Turning over in bed (including adjusting bedclothes, sheets, and blankets)? (1) Total/Unable (not able to do the activity or can only perform the activity using assistive devices or requires assistance from another person, including supervision or cueing for safety) Sitting down on and standing up from a chair with arms (e.g., wheelchair, bedside commode, etc.)? (1) Total/Unable (not able to do the activity or can only perform the activity using assistive devices or requires assistance from another person, including supervision or cueing for safety) Moving from lying on back to sitting on side of bed? (1) Total/Unable (not able to do the activity or can only perform the activity using assistive devices or requires assistance from another person,including supervision or cueing for safety) How much help from another person does the patient currently need: Moving to and from a bed to a chair (including a wheelchair)? (2) A lot (Maximal/Moderate assist) Need to walk in hospital room? (2) A lot (Maximal/Moderate assist) Climbing 3-5 steps with a railing? (1) Total/Unable (Total assist/dependent) Score Raw score=8 t-Scale score=28.58 Standard error=4.04 CMS 0-100%=86.62% MDC=4.72 A raw score of >= 16 is significantly associated with increased odds of discharge to home in addition to consideration made for the patient's cognition and social determinants of health. Balance Static/dynamic sitting and static/dynamic standing balance grades Balance Grade Sitting Static Poor - patient requires handhold support and moderate to maximal assistance to maintain position Comment: Progressed to fair Sitting Dynamic Poor - patient unable to accept challenge or move without loss of balance Standing Static Poor - patient requires handhold support and moderate to maximal assistance to maintain position Standing Dynamic Poor - patient unable to accept challenge or move without loss of balance Activity Tolerance Patient limited with activity/intervention due to fatigue and deconditioning Treatment The patient agreed to eob and try to walk. He required extra time and use of bed rails to complete sup>sit. His initial sitting balance was poor but progressed to fair. He stood with min assist x 2 and verbal cues but kept his COG at or behind his DIONNE. His initial stance was very wide based and he was poorly successful in narrowing it until assisted to wt shift to allow him to step and narrow his DIONNE. He walked to approximately the wall with mod assist x w, turned with assistance and walked to the door of the room. He continued to need cueing but modestly decreased assist to weight shift and was able to be a slow cristela going. His recliner was brought behind him. He sat with cues to reach back and was rolled back to position for OT to continue to wor with him. Assessment Patient presenting with Decreased functional mobility, Decreased gait tolerance, Decreased strength, Decreased activity tolerance, Impaired sitting balance, Impaired standing balance. Because of this, patient would have difficulty with independently performing bathing, dressing, toileting, bed mobility, transferring, ambulating on level surfaces, ambulating household distances, negotiating stairs, and picking objects up off the floor. These functional limitations put the patient at an increasedrisk for loss of independence with functional mobility and activities of daily living, falling, deconditioning, and decreased quality of life. The patient able to demonstrate sit to stand with RW andmin assist x 2. His static standing balance remained poor. He was able to initiate ambulation with manually assisted wt shifting. Patient would benefit from skilled physical therapy services during length of stay for strengthening, balance training to decrease risk of falling, endurance training toimprove activity tolerance, gait training, transfer training, and progression of mobility. Problems: Decreased functional mobility, Decreased gait tolerance, Decreased strength, Decreased activity tolerance, Impaired sitting balance, Impaired standing balance Rehab potential: Good for stated goals Plan Treatment Plan: Therapeutic Exercise, Therapeutic Activity, Gait Training, Neuromuscular Re-education, Transfer Training, Balance Training, Strengthening PT Frequency/Duration: 5x/week for 14 days Recommendations Discharge recommendations: Patient would benefit from 3 hours of intensive multidisciplinary therapy per day to maximize functional outcomes and address functional limitations to return to highest level of functioning. DME recommendations: Unable to make recommendations at this time. Goals [id number]: By the target date, patient will perform [id number] with modified independence, utilizing bed railing, to improve independence with bed mobility. [id number]: By the target date, patient will perform sit to stand with modified independence and rolling walker to improve independence with functional mobility. Transfer: By the target date, patient will perform stand-pivot transfer to a bedside commode, recliner chair, or wheelchair with modified independence and utilizing rolling walker, demonstrating ability to safely transfer while in hospital setting to improve independence with functional mobility. Gait: Patient will ambulate 150ft with minimal assistance and utilizing rolling walker in order to increase independence with ambulation and improve balance with ambulation and decrease risk of falling Target Date: 01/23/2025 Progress towards goals: progressing Education Patient educated on ambulation and transfers and following, they were not able to verbalize and demonstrate understanding. No further questions or concerns stated. Interdisciplinary Communication Following treatment, therapist communicated with nursing by completing communication whiteboard in room. Patient Disposition Upon Leaving Patient in bedside chair, Call Light/Pull Cord in reach, All needs met and within reach, Nursing aware/notified, Feet elevated, Fall mat placed, Yellow non-slip socks donned If this patient discharges prior to next therapy session, this note serves as the patient's discharge summary. Electronically signed by Adrian Meza PT - 01/11/25 - 11:02 AM EDT * KALEB Ruiz - 01/11/2025 10:45 AM EDT Images from the original note were not included. [address] [facility] Inpatient Occupational Therapy Treatment Note Patient Name: Prosper Douglas Date of : 1965 Date of Treatment: 01/11/25 Start Time: 10:45 Stop Time: 11:08 Session Duration: 23 minutes This patient is a 59 y.o. male admitted on 01/05/2025 with Subdural hematoma (HCC) [S06.5XAA] Thrombocytopenia (HCC) [D69.6] SDH (subdural hematoma) (HCC) [S06.5XAA] Cerebellar stroke (HCC) [I63.9] Conjunctivitis of left eye, unspecified conjunctivitis type [H10.9]. Past Medical History: Diagnosis Date Alcohol abuse GERD (gastroesophageal reflux disease) Hypertension Past Surgical History: Procedure Laterality Date ESOPHAGECTOMY General Visit type: Treatment Approved by: Nurse Jerry Patient disposition upon entry: Supine in bed, All needs met and within reach, Call light/pull cordin reach, Nursing aware/notified, Side rails up Co-treated by: PT Assisted by: electronic train control technician Precautions Weightbearing status: No restrictions Precautions: Fall risk, R SDH Isolation precautions: Standard LDA/Brace/Protective equipment: Lines, drains, and airways: nasal cannula Subjective Subjective: Pt agreeable Pain No-patient has no complaints of pain Cognition Cognition: Overall cognitive status: Patient is awake and alert, attending to directions appropriately, demonstrating good problem solving skills, and aware of any deficits or impairments, if present. Following commands: Follows all commands and directions without difficulty, slight delay in initiation of commands Objective Vitals Heart rate: 60 beats per minute Blood pressure: 140/97 mmHg SpO2: 99% O2 (L/min): 2 (L/min) nasal cannula Bed Mobility Supine to sit: Moderate assistance, 1 person assist, Head of bed elevated, Use of bedrails Transfers Sit to stand:Minimal assistance, 2 person assist, Gait belt used, Rolling walker used Stand to sit:Minimal assistance, 1 person assist, Gait belt used, Rolling walker used Functional mobility:Minimal assistance, 2 person assist, Gait belt used, Rolling walker used ADLs Feeding:Setup Balance Static sitting balance:Poor: Patient required handheld support and moderate to maximal support to maintain position Dynamic sitting balance:Poor: Patient unable to accept challenge or move without loss of balance Static standing balance:Poor: Patient required handheld support and moderate to maximal support to maintain position Dynamic standing balance:Poor: Patient unable to accept challenge or move without loss of balance Activity Tolerance Patient limited with activity/intervention due to pain, fatigue, deconditioning, and weakness Treatment Pt received supine in bed with PT upon OT arrival. Pt completed sup-sit mod A with use of bed railsand HOB elevated with increased time needed to completed. Initially assist needed for EOB sitting balance but progressed to CGA. Pt completed sit-stand min A x2 from bed, pt with significant posterior lean needing verbal cuing to correct. Pt completed functional mobility less than HH distance min Ax2 with rolling walker and assist for weight shifting and walker management. Pt completed stand-sitto chair min A x2 with verbal cues for hand placement. Pt set up for feeding task, set up assist for opening containers and cutting food. Pt able to load utensils and bring to mouth independently. Ptleft seated in bedside chair, call light and all needs within reach at conclusion of OT treatment session. Assessment Assessment Patient demonstrated improved performance during this treatment session. Patient continues to present with decreased strength, decreased endurance, decreased balance. These deficits currently impact the patient's ability to perform ADLs and functional mobility, putting them at an increased risk forincreased falls, decreased quality of life, poor outcomes, further functional decline, further decreased strength. Patient will benefit from continued OT services to address the aforementioned functional deficits. Plan Recommendations Discharge recommendations: Patient would benefit from 3 hours of intensive multidisciplinary therapy per day to maximize functional outcomes and address functional limitations to return to highest level of functioning. DME recommendations: Unable to make adaptive/DME recommendations at this time. Treatment Plan: Continue OT POC OT Frequency/Duration: 3x/week for 14 days Goals Feeding: feeding, sitting edge of bed with modified independence Grooming: grooming , sitting edge of bed with modified independence Bed mobility: supine to sit with minimal assistance Functional transfers: ambulatory transfer with minimal assistance and rolling walker Target Date: 01/23/2025 Goals were discussed with patient Progress towards goals: progressing Education Patient educated on safety, use of call light, role of occupational therapy, patient's plan of care, ADLs, functional mobility and following, they were able to verbalize understanding. Interdisciplinary Communication Following treatment, therapist communicated with nursing regarding patient's performance during therapy session, patient's level of assistance with transfers for nursing mobility. Patient Disposition Upon Leaving Patient Disposition: Sitting in bedside chair, All needs met and within reach, Call light/pull cordin reach, Chair alarm applied, Fall mats in place, Feet elevated, Lift pad placed in chair, Nursingaware/notified If this patient discharges prior to next therapy session, this note serves as the patient's discharge summary. Electronically signed by KALEB Ruiz - 01/11/2025 - 11:45 AM EDT * Carlee Sutton MD - 01/10/2025 5:53 PM EDT [facility] MEDICINE PROGRESS NOTE: Patient: Prosper Douglas Date: 01/10/2025 ASSESSMENT and PLAN: Prosper Douglas is a 59 y.o. male with PMHx of depression, alcohol dependence, and malnutritionwith iron deficiency anemia who presented on 01/05/2025 after a falls with ORTIZ and other complaints. Workup revealed. DIAGNOSIS: Right SDH-Right small cerebellar hemorrhage and small amount of hemorrhage layering along the left tentorium. - S/p platelet transfusions, - fall risk. Fall precautions Pancytopenia-resolved - ANemia - Normally pt has a hx of Thrombocytopenia - check iron stores as well as Vitamin b12, Folate - stable hematologic indices. - Platelets are WNL today Etoh Use Disorder Hypomagnesiemia - Monitor for signs of Alcohol withdrawal - Continue Thiamine, MVI and Folate. Replete lytes as indicated. - Monitor Mg and Phos stores, given the risk of refeeding syndrome. Am labs ordered. HTN - Essential - Must control BP effectively given SDH - Keep SBP btw 120-130. 5. Abnormal transaminases -improving -likely related to underlying excessive alcohol use -monitor 6 Hypomagnesemia, - Due to alcoholism. - typically seen in refeeding syndrome - monitor 7 Protein Calorie Malnutrition -Hypoalbuminemia Nutrition supplements 8Left eye conjunctivitis - improviing. - likely bacterial - Eye drops - reassess VTE Prophylaxis: Mechanical VTE prophylaxis CODE STATUS : Same as listed above on Epic Facesheet Previous Living Condition: Home Expected Disposition: To be Determined Expected Discharge Date: To be determined pending rate of clinical recovery, general progress, and response to therapy with evolving data and workup Subjective Patient seen and examined at bedside this AM. Objective Vitals: Temp: [98.2 ??F (36.8 ??C)-99.7 ??F (37.6 ??C)] 98.6 ??F (37 ??C) Pulse: [60-73] 62 Resp: [16] 16 BP: (98-172)/(65-108) 144/96 Intake/Output: Intake/Output Summary (Last 24 hours) at 01/10/2025 1753 Last data filed at 01/10/2025 0600 Gross per 24 hour Intake -- Output 1100 ml Net -1100 ml Physical exam: General: Looks comfortable and no distress, on 2L NC. Non toxic HEENT: Head atraumatic, normal cephalic. Pupil bilateral equal and reacting. Conjunctive are normal. Neck: Supple. No JVD noted CVS: S1, S2, no S3 or S4. Regular rate and rhythm no murmur. Lungs: Bilateral air entry. Normal chest expansion. Clear to auscultation bilaterally. Abdomen: Soft. Nontender. Positive bowel sounds. 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 No gross neurological focal deficits. Musculoskeletal: Range of motion is normal. No pedal edema. Skin: Warm and dry on exposed surface. Psychiatry: Mood appropriate Medications: Scheduled Meds: cloNIDine 0.1 mg oral TID 0.1 mg at 01/10/25 1441 erythromycin 0.5 inch left eye Q4H 1 g at 01/10/25 1640 folic acid 1 mg oral Daily 1 mg at 01/10/25 0851 LORazepam 1 mg oral Q6H 1 mg at 01/10/25 1441 metoprolol tartrate 50 mg oral BID 50 mg at 01/10/25 0852 pantoprazole 40 mg oral Daily 40 mg at 01/10/25 0851 potassium chloride 40 mEq oral Once thiamine 200 mg oral Daily 200 mg at 01/10/25 0851 Continuous Infusions: Current Facility-Administered Medications Medication Dose Route Frequency Provider Last Rate Last Admin acetaminophen (TYLENOL) tablet 1,000 mg 1,000 mg oral Q6H PRN Jarek Connor MD cloNIDine (CATAPRES) tablet 0.1 mg 0.1 mg oral Q4H PRN Jarek Connor MD 0.1 mg at 01/10/25 0851 cloNIDine (CATAPRES) tablet 0.1 mg 0.1 mg oral TID Minna Osuna MD 0.1 mg at 01/10/25 1441 diazePAM (VALIUM) injection 5 mg 5 mg intravenous Q5 Min PRN Jarek Connor MD 5 mg at 01/06/25 0139 docusate sodium (COLACE) capsule 100 mg 100 mg oral BID PRN Jarek Connor MD erythromycin 5 mg/gram (0.5 %) ophthalmic ointment 1 g 0.5 inch left eye Q4H Jarek Connor MD 1 g at 01/10/25 1640 folic acid (FOLVITE) tablet 1 mg 1 mg oral Daily Minna Osuna MD 1 mg at 01/10/25 0851 hydrALAZINE (APRESOLINE) injection 10 mg 10 mg intravenous Q4H PRN Jarek Connor MD 10 mg at 01/09/25 2106 LORazepam (ATIVAN) injection 1 mg 1 mg intravenous Q30 Min PRN Minna Osuna MD Or LORazepam (ATIVAN) tablet 1 mg 1 mg oral Q30 Min PRN Minna Osuna MD LORazepam (ATIVAN) injection 2 mg 2 mg intravenous Q30 Min PRN Minna Osuna MD Or LORazepam (ATIVAN) tablet 2 mg 2 mg oral Q30 Min PRN Minna Osuna MD LORazepam (ATIVAN) injection 3 mg 3 mg intravenous Q30 Min PRN Minna Osuna MD Or LORazepam (ATIVAN) tablet 3 mg 3 mg oral Q30 Min PRN Minna Osuna MD LORazepam (ATIVAN) injection 4 mg 4 mg intravenous Q30 Min PRN Mnina Osuna MD Or LORazepam (ATIVAN) tablet 4 mg 4 mg oral Q30 Min PRN Minna Osuna MD LORazepam (ATIVAN) tablet 1 mg 1 mg oral Q8H PRN Jarek Connor MD LORazepam (ATIVAN) tablet 1 mg 1 mg oral Q4H PRN Carlee Sutton MD LORazepam (ATIVAN) tablet 1 mg 1 mg oral Q6H Minna Osuna MD 1 mg at 01/10/25 1441 magnesium sulfate IVPB 2 g in sterile water 50 mL (premix) 2 g intravenous Daily PRN Jarek Connor MD magnesium sulfate IVPB 2 g in sterile water 50 mL (premix) 2 g intravenous BID PRN Jarek Connor MD melatonin tablet 5 mg 5 mg oral Every Night PRN Jarek Connor MD metoprolol tartrate (LOPRESSOR) tablet 50 mg 50 mg oral BID Minna Osuna MD 50 mg at 01/10/25 0852 morphine injection 2 mg 2 mg intravenous Q4H PRN Jarek Connor MD naloxone (NARCAN) injection 0.2 mg 0.2 mg intravenous Q2 Min PRN Jraek Connor MD ondansetron (ZOFRAN-ODT) disintegrating tablet 4 mg 4 mg oral Q8H PRN Jarek Connor MD Or ondansetron (ZOFRAN) injection 4 mg 4 mg intravenous Q4H PRN Jarek Connor MD pantoprazole (PROTONIX) EC tablet 40 mg 40 mg oral Daily Jarek Connor MD 40 mg at 01/10/25 0851 potassium chloride (KLOR-CON) ER tablet 40 mEq 40 mEq oral 4x Daily PRN Jarek Connor MD 40 mEq at01/10/25 0911 potassium chloride (KLOR-CON) ER tablet 40 mEq 40 mEq oral Once Carlee Sutton MD potassium chloride IVPB 10 mEq in 100 mL sterile water (premix) 10 mEq intravenous Q1H PRN Jarek Connor MD thiamine tablet 200 mg 200 mg oral Daily Carlee Sutton MD 200 mg at 01/10/25 0851 PRN Meds: @MEDSPRN@ Labs: Results for orders placed or performed during the hospital encounter of 01/05/25 (from the past 24 hours) ECG 12 lead Status: None Collection Time: 01/09/25 7:04 PM Result Value Ref Range VENTRICULAR RATE EKG/MIN 65 BPM ATRIAL RATE (MCT) 65 BPM MA Interval 134 ms QRS-INTERVAL (MSEC) 92 ms QT Interval 408 ms QTC Interval 424 ms R AXIS (MCT) 55 degrees T Wave [place] 55 degrees [place] Diagnosis Normal sinus rhythm Normal ECG When compared with ECG of 09-JAN-2025 08:40, No significant change was found Confirmed by Ayse DAWSON MATTHEW ([id number]) on 01/10/2025 12:33:52 PM CBC with automated diff Status: Abnormal Collection Time: 01/10/25 3:36 AM Result Value Ref Range WBC 4.5 4.2 - 9.1 K/??L RBC 3.20 (L) 4.63 - 6.08 M/??L Hemoglobin 11.4 (L) 13.7 - 17.5 GM/DL Hematocrit 33.0 (L) 40.1 - 51.0 % MCV 103 (H) 79 - 92 fL MCH 35.6 (H) 25.7 - 32.2 pg MCHC 34.5 32.3 - 36.5 GM/DL RDW 13.8 11.6 - 14.4 % Platelets 168 140 - 375 K/CU MM MPV 9.3 (L) 9.4 - 12.4 fL NRBC Absolute <0.01 0 - 0.012 K/ul Comprehensive metabolic panel Status: Abnormal Collection Time: 01/10/25 3:36 AM Result Value Ref Range Sodium 140 136 - 145 meq/L Potassium 3.6 3.4 - 5.1 meq/L Chloride 102 98 - 112 meq/L CO2 25 22 - 29 meq/L Calcium 9.3 8.4 - 10.2 mg/dL Glucose 104 (H) 74 - 100 mg/dL BUN 20.2 8.4 - 25.7 mg/dL Creatinine 0.69 (L) 0.72 - 1.25 mg/dL BUN/Creatinine 29 (H) 8 - 20 eGFR (mL/min/1.73m2) 107 >=60 mL/min/1.73m2 Albumin 2.9 (L) 3.5 - 5.0 g/dL Alkaline Phosphatase 47 40 - 150 U/L ALT 159 (H) <=45 U/L AST 71 (H) 11 - 34 U/L Total Bilirubin 0.6 0.2 - 1.2 mg/dL Protein, Total 6.8 6.4 - 8.3 g/dL Globulin 3.9 2.5 - 4.1 g/dL Anion Gap 17 (H) 4 - 12 A/G Ratio 0.7 0.7 - 1.9 Osmolality Calc 282.4 mOsm/kg Magnesium Status: Abnormal Collection Time: 01/10/25 3:36 AM Result Value Ref Range Magnesium 1.4 (L) 1.6 - 2.6 mg/dL Phosphorus Status: Normal Collection Time: 01/10/25 3:36 AM Result Value Ref Range Phosphorus 4.0 2.5 - 4.5 mg/dL Manual Differential Status: Abnormal Collection Time: 01/10/25 3:36 AM Result Value Ref Range Total Counted 100 % Neutros (manual) 59 50 - 65 % % Lymphs (manual) 14 (L) 24 - 44 % % Monos (manual) 18 (H) 4 - 5 % % Eos (manual) 7 (H) 0 - 3 % % Baso (manual) 2 (H) 0 - 1 % RBC Morphology abnormal (A) Normal Platelet Estimate Adequate Adequate Anisocytosis 1+ Hypochromia 1+ Polychromasia 1+ Macrocytes 1+ ANC# 2.66 K/??L Radiology: Radiology Results (last 3 days) No results found for the last 72 hours. Signed: 01/10/2025 * Minna Osuna MD - 01/09/2025 11:48 AM EDT ConsultsPULMONARY AND CRITICAL CARE Consult Note Date of Service: 01/09/2025 Time: 12:17 AM HPI: This is a 59 y.o. year old male with past medical history as below. He presented to the ED on 01/05 with left eye discharge, multiple falls, and a headache. Upon arrival, labs of significance includedplatelets 62, creatinine 1.37, AST 151, ALT 82, and magnesium 1.5. CT brain revealed mixed density right subdural hemorrhage with an acute component measuring 5.5 mm and probable small hemorrhage along the right cerebellum and left tentorium. Neurosurgery was consulted and he was given IV vitamin [place] with two packs of platelets. He was admitted to the unit and Pulmonary has been consulted forcritical care management. 01/07: seen and examined, critically ill, remains having tremors and Hypertension but improved sincescheduled ativan and CIWA prn ativan, De to sleepiness we reduced the ativan to 1 mg q 4 hrs from 2mg q4 hrs, Hb stable, no fever or leukocytosis. No more headache, or blurry vision, ecchymosis noted, No body hematoma. NSG ok to start DVT prophylaxis 01/08: seen and examined, more awake, able to answer questions, seems mildly depressed, on O2 at rate of 2LPM, worse CPAP at night and with sleep, patient Bp elevated urgency systolic 166 mmHg-addedmetoprolol 50 mg BID, and clonidine 0.1 mg TID , Thrombocytopenia and PLT 80K-- SCD only avoid anticoagulation. Na 139. , hypokalemia and being replaced . RUTHIE improved. Continue ativan 1 mg q4 hrs; hopefully plan to taper in the next few days. Off IVF. Add thiamin and folic acid. PAST MEDICAL HISTORY: Past Medical History: Diagnosis Date Alcohol abuse GERD (gastroesophageal reflux disease) Hypertension PAST SURGICAL HISTORY: Past Surgical History: Procedure Laterality Date ESOPHAGECTOMY Allergies: No Known Allergies SOCIAL HISTORY: Social History Tobacco Use Smoking status: Never Smokeless tobacco: Never Substance Use Topics Alcohol use: Yes Comment: 2-3 short glasses a day Drug use: Never FAMILY HISTORY: family history is not on file. Review of Systems Unable to perform ROS: Mental status change (Drowsy s/p Valium) Vital Signs Temp: [98 ??F (36.7 ??C)-98.3 ??F (36.8 ??C)] 98.3 ??F (36.8 ??C) Pulse: [55-92] 63 Resp: [10-19] 15 BP: (109-177)/(67-106) 126/74 FiO2 (%): [40 %] 40 % Current: Temp: 98.3 ??F (36.8 ??C) Pulse: 63 Resp: 15 BP: 126/74 SpO2: 100 % 24 Hour: BP Min: 109/67 Max: 177/103 Temp Min: 98 ??F (36.7 ??C) Max: 98.3 ??F (36.8 ??C) Pulse Min: 55 Max: 92 Resp Min: 10 Max: 19 SpO2 Min: 99 % Max: 100 % Intake/Output: I/O last 3 completed shifts: In: - Out: 3000 [Urine:3000] Physical Exam Constitutional: General: He is not in acute distress. Appearance: He is ill-appearing. Comments: Drowsy. Room air HENT: Head: Normocephalic. Nose: Nose normal. Mouth/Throat: Mouth: Mucous membranes are moist. Pharynx: Oropharynx is clear. Eyes: Comments: Left eye with yellow discharge and matting Cardiovascular: Rate and Rhythm: Normal rate and regular rhythm. Pulses: Normal pulses. Heart sounds: Normal heart sounds. Pulmonary: Effort: Pulmonary effort is normal. No respiratory distress. Breath sounds: Normal breath sounds. Abdominal: General: Abdomen is flat. Palpations: Abdomen is soft. Musculoskeletal: General: Normal range of motion. Cervical back: Normal range of motion. Skin: General: Skin is warm and dry. Capillary Refill: Capillary refill takes less than 2 seconds. Neurological: Comments: Drowsy s/p Valium Psychiatric: Comments: Unable to assess, patient condition Vent / O2 Management: FiO2 (%): [40 %] 40 % LABS Results for orders placed or performed during the hospital encounter of 01/05/25 (from the past 24 hours) Glucose, Nova Meter Status: Abnormal Collection Time: 01/08/25 4:45 PM Result Value Ref Range POC-GLUCOSE 136 (H) 70 - 110 mg/dL Coroner Forensic Technician [id number] Comprehensive metabolic panel Status: Abnormal Collection Time: 01/09/25 2:22 AM Result Value Ref Range Sodium 140 136 - 145 meq/L Potassium 3.9 3.4 - 5.1 meq/L Chloride 103 98 - 112 meq/L CO2 25 22 - 29 meq/L Calcium 9.0 8.4 - 10.2 mg/dL Glucose 104 (H) 74 - 100 mg/dL BUN 22.1 8.4 - 25.7 mg/dL Creatinine 0.75 0.72 - 1.25 mg/dL BUN/Creatinine 29 (H) 8 - 20 eGFR (mL/min/1.73m2) 104 >=60 mL/min/1.73m2 Albumin 2.8 (L) 3.5 - 5.0 g/dL Alkaline Phosphatase 46 40 - 150 U/L ALT 229 (H) <=45 U/L AST 134 (H) 11 - 34 U/L Total Bilirubin 0.6 0.2 - 1.2 mg/dL Protein, Total 6.4 6.4 - 8.3 g/dL Globulin 3.6 2.5 - 4.1 g/dL Anion Gap 16 (H) 4 - 12 A/G Ratio 0.8 0.7 - 1.9 Osmolality Calc 283.1 mOsm/kg CBC - Hemogram (SJ-BKR) Status: Abnormal Collection Time: 01/09/25 2:22 AM Result Value Ref Range WBC 3.6 (L) 4.2 - 9.1 K/??L RBC 2.92 (L) 4.63 - 6.08 M/??L Hemoglobin 10.5 (L) 13.7 - 17.5 GM/DL Hematocrit 31.0 (L) 40.1 - 51.0 % MCV 106 (H) 79 - 92 fL MCH 36.0 (H) 25.7 - 32.2 pg MCHC 33.9 32.3 - 36.5 GM/DL RDW 14.6 (H) 11.6 - 14.4 % Platelets 123 (L) 140 - 375 K/CU MM MPV 9.1 (L) 9.4 - 12.4 fL ECG 12 lead Status: None (In process) Collection Time: 01/09/25 8:40 AM Result Value Ref Range SYSTOLIC BLOOD PRESSURE (MCT) 148 mmHg DIASTOLIC BLOOD PRESSURE (MCT) 93 mmHg VENTRICULAR RATE EKG/MIN 67 BPM ATRIAL RATE (MCT) 67 BPM MA Interval 134 ms QRS-INTERVAL (MSEC) 84 ms QT Interval 412 ms QTC Interval 435 ms R AXIS (MCT) 74 degrees T Wave [place] 84 degrees [place] Diagnosis Normal sinus rhythm Normal ECG When compared with ECG of 06-JAN-2025 20:34, QT has shortened Radiology Radiology Results (last day) No results found for the last 24 hours. Microbiology: Microbiology Results (last 7 days) No results found for the last 168 hours. ASSESSMENT: Pulmonary Consulted for critical care management Currently on room air Never smoker Neuro CT brain - mixed density right subdural hemorrhage with an acute component measuring 5.5 mm and probable small hemorrhage along the right cerebellum and left tentorium Awake, alert Cardiac Hemodynamically stable History of HTN Heme Thrombocytopenia Renal Acute kidney injury, baseline unknown Hypomagnesemia ENT Left eye conjunctivitis GI Transaminitis General ETOH abuse PLAN: -Supplemental O2 for goal sat 92-96% - currently on O at 2 LPM -BABS on O2 2 L with sleep--> add CPAP level 10 at night -S/p falls : CT head 01/05: right subdural hemorrhage with an acute component measuring 5.5 mm and probable small hemorrhage along the right cerebellum and left tentorium -Neurosurgery following: Follow up outpatient in 4 weeks with a repeat CT Head -Awake, able to answer questions, seems mildly depressed, on O2 at rate of 2LPM, worse CPAP at night and with sleep, Thrombocytopenia and PLT 80K-- SCD only avoid anticoagulation. Na 139. RUTHIE improved. Continue ativan 1 mg q4 hrs; hopefully plan to taper in the next few days. Off IVF. Add thiamin and folic acid. -Remains having tremors and Hypertension but improved since scheduled ativan and CIWA prn ativan, De to sleepiness we reduced the ativan to 1 mg q 4 hrs from 2 mg q4 hrs, Hb stable, no fever or leukocytosis. No more headache, or blurry vision, ecchymosis noted, No body hematoma. -CT head 01/06 showed stable hemorrhage overlying the right -Frontal and parietal lobes and extending over the tentorium consistent with subdural hemorrhage. -Hemodynamics: keep MAP > 65 mmHg. atient Bp elevated urgency systolic 166 mmHg-added metoprolol 50 mg BID, and clonidine 0.1 mg TID -Thrombocytopenia: likely due to alcoholism -Platelet was 62K S/P 2 u of platelet --> 92K ETOH delirium CIWA prn ativan Ongoing tremors , Tachycardia--> ativan 1mg q4 hrs Plan TO TAPER IN THE NEXT 1-2 DAYS according to signs of withdrawal Rhabdomyolysis CK 2483 S/p IVF RUTHIE : likely pre-renal.Cr 1.38 High risk of refeeding syndrome Replace electrolytes Hypokalemia and being replaced Oral diet if OK per Neurosurgery Hyponatremia: improved. Monitor Na level-Na 138 Prophylaxis: Protonix. SCD- thrombocytopenia PLT 80K. Anticoagulation on hold secondary to SDH I have personally evaluated the patient; history and review of systems, physical examination, laboratory studies and radiology data. I have actively directed the medical care, formulated diagnosis and plan and discussed it with our team. Chest imaging reviewed independent of the radiologist report. Prognosis: Guarded. High risk of Morbidity and Mortality Full code Disposition intensive care unit Discussed in a multidisciplinary team rounds in the ICU Critically ill, complex case, requires frequent assessments and high level of decision making. Critical care time without procedures is 32 min Minna Osuna MD * CHRISTA Fuchs/Viet - 01/09/2025 10:40 AM EDT Images from the original note were not included. [facility] Inpatient Occupational Therapy Initial Evaluation Patient Name: Prosper Douglas Date of : 1965 Date of Evaluation: 01/09/25 Start Time: 10:10 Stop Time: 10:40 Session Duration: 30 minutes Total time: 40 minutes spent, including 10 minutes for nursing collaboration, thorough chart and systems review, and clinical reasoning. This patient is a 59 y.o. male admitted on 01/05/2025 with Subdural hematoma (HCC) [S06.5XAA] Thrombocytopenia (HCC) [D69.6] SDH (subdural hematoma) (HCC) [S06.5XAA] Cerebellar stroke (HCC) [I63.9] Conjunctivitis of left eye, unspecified conjunctivitis type [H10.9]. Past Medical History: Diagnosis Date Alcohol abuse GERD (gastroesophageal reflux disease) Hypertension Past Surgical History: Procedure Laterality Date ESOPHAGECTOMY General Visit type: Initial Evaluation Approved by: Nurse Nelson Patient Disposition Upon Entry: Supine in bed, Call Light/Pull Cord in reach, HOB >30 degrees, Bed Alarm applied , Fall mat placed Patient Verified By: Name and Date of Co-treated by: PT Precautions Weight-Bearing Status: No Restrictions Precautions: Fall risk Isolation Precautions: Standard Lines: telemetry, nasal canula, peripheral IV, external catheter Subjective Subjective: Pt agreeable Pain No-patient has no complaints of pain Cognition Arousal/Alertness: Delayed response to stimuli Attention Span: Appears intact Orientation Level: Oriented x4 Following commands: Able to follow commands appropriately with tactile cueing Able to follow commands appropriately with verbal cueing Follows one step commands with increased time Safety Judgment: Decreased awareness of need for assistance Decreased awareness of need for safety Awareness of Errors: Decreased awareness of errors Vision/Hearing History Visual/Hearing History: Current Vision: No visual deficits Current Hearing: No hearing deficits Home Living Lives with: Alone Home Type: Apartment Home Layout: One level Stairs to enter: None Stairs inside home: none Home Equipment: None Bathroom layout: Tub/shower combo Functional Mobility PLOF: Patient reports being complete independent with all functional mobility prior to onset. Activities of Daily Living PLOF: Patient reports being complete independent with all ADL's prior toonset. Does the patient have a recent history of falls?: 5-10 falls in the last 6 months. The most recent falls was 01/03/25. 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 Bed Mobility Rolling Left: maximal assistance Supine to Sit: maximal assistance, 2-person assist, to the left, via logroll Sit to Supine: maximal assistance, 2-person assist Transfers Sit to Stand: moderate assistance, 2-person assist, rolling walker used Stand to Sit: moderate assistance, 2-person assist, rolling walker used ADLs Feeding:Setup Grooming:Moderate Assistance Bathing:Maximal Assistance Upper body dressing:Maximal Assistance Lower body dressing:Total Assistance Toileting:Total Assistance Outcome Measures [facility] Daily Living Functional Assessment How much help from another person does the patient currently need: Putting on and taking off regular lower body clothing? 1 Bathing, including washing, rinsing, and drying? 2 Toileting, including using toilet, bedpan or urinal? 1 Putting on and taking off regular upper body clothing? 2 Taking care of personal grooming such as brushing teeth? 2 Eating meals? 3 1=Total/Unable (Total assist/Dependent) 2=A lot (Maximal/Moderate assist) 3=A little (Minimal/Contact guard/Supervision/Setup) 4=None (Modified independent/Independent) The patient's [facility] raw score is 11. The patient currently has 70.42% functional impairment. Clinicians are most likely to recommend inpatient/SNF/meterman care for patients with scores between 6-17, home health for scores between 18-22, and routine discharge for scores above 22. Balance Static sitting balance:Poor: Patient required handheld support and moderate to maximal support to maintain position Static standing balance:Poor: Patient required handheld support and moderate to maximal support to maintain position Activity Tolerance Patient limited with activity/intervention due to fatigue, deconditioning, weakness, cognitive impairment, and difficulty following commands Treatment Pt semi supine at beginning of session. Pt able to answer interview questions with prompting from therapists. Pt transitioned from supine to sitting EOB with max assist X 2. Additional assessments completed EOB. Pt able to stand 1X with mod assist x 2 and rolling walker. Heavy posterior lean noted.Soiled chux removed and clean chux were placed. Pt returned to seated position. Pt transitioned back into supine with max assist x 2. Pt rolled L with max assist and positioned in bed to offload R hip. Pt left rolled left, call light in lap, all needs met, bed rails up. Assessment Assessment Prior to admission, patient was independent with ADLs, was independent with functional mobility. Currently the patient presents with decreased balance , decreased safety awareness , difficulty with ADLs, fall risk, impaired cognition, impaired endurance, impaired functional mobility, impaired strength , impaired UE functional use, impaired UE ROM. These deficits currently impact the patient's ability to perform ADLs and functional mobility, putting them at an increased risk for increased falls,decreased quality of life, poor outcomes, increased risk of pressure injury, further functional decline, further decreased strength, increased caregiver burden, other medical complications. The patient has good rehab potential and would benefit from OT services to address the aforementioned functional deficits in order to return to prior level of function. The patient's current [facility] score of 11 would indicate that the patient will likely be appropriate for inpatient rehab/SNF/ senior care care post hospitalization. Plan Recommendations Discharge recommendations: Patient would benefit from 3 hours of intensive multidisciplinary therapy per day to maximize functional outcomes and address functional limitations to return to highest level of functioning. DME recommendations: Unable to make adaptive/DME recommendations at this time. Treatment Plan: Adaptive equipment training, ADL training, Co-treat with physical therapy, DME recommendations , Functional mobility/transfer training, Home program instruction, Other activities to increase UE function, Patient/family/caregiver education, Precaution education/training, ROM, Safety t raining, Strengthening OT Frequency/Duration: 3x/week for 14 days Goals Feeding: feeding, sitting edge of bed with modified independence Grooming: grooming , sitting edge of bed with modified independence Bed mobility: supine to sit with minimal assistance Functional transfers: ambulatory transfer with minimal assistance and rolling walker Target Date: 01/23/2025 Goals were discussed with patient Education Patient educated on safety, role of occupational therapy, patient's plan of care, ADLs, fall prevention, adaptive equipment, functional mobility and following, they were able to verbalize understanding. Interdisciplinary Communication Following treatment, therapist communicated with nursing regarding patient's performance during therapy session. Patient Disposition Upon Leaving Rolled left in bed, Call Light/Pull Cord in reach, HOB >30 degrees, Bed Alarm applied , Fall matplaced, side rails up If this patient discharges prior to next therapy session, this note serves as the patient's discharge summary. Electronically signed by CHRISTA Fuchs/Viet - 01/09/2025 - 1:57 PM EDT OT Evaluation Completed * Gregg Mirza, PT - 01/09/2025 10:10 AM EDT Images from the original note were not included. Inpatient Physical Therapy Initial Evaluation Patient Name: Prosper Douglas Date of : 1965 Date of Evaluation: 01/09/25 In Time 1010 Out Time 1038 Session Duration 28 minutes Time spent for nursing collaboration, chart and systems review, and clinical reasoning. 5 minutes Total Time 33 minutes Pt is a 59 y.o. male admitted on 01/05/2025 with Subdural hematoma (HCC) [S06.5XAA] Thrombocytopenia (HCC) [D69.6] SDH (subdural hematoma) (HCC) [S06.5XAA] Cerebellar stroke (HCC) [I63.9] Conjunctivitis of left eye, unspecified conjunctivitis type [H10.9]. Past Medical History: Diagnosis Date Alcohol abuse GERD (gastroesophageal reflux disease) Hypertension Past Surgical History: Procedure Laterality Date ESOPHAGECTOMY General Visit type: Initial Evaluation Approved by: Nurse Nelson Patient Disposition Upon Entry: Supine in bed, Call Light/Pull Cord in reach, HOB >30 degrees, Bed Alarm applied , Fall mat placed Patient Verified By: Name and Date of Co-treated by: OT Precautions Weight-Bearing Status: No Restrictions Precautions: Fall risk , R SDH (frontal/parietal) Isolation Precautions: Standard Lines, tubes, drains, airway: nasal cannula Subjective Subjective: Patient agreeable to physical therapy evaluation and treatment. Pain No - Patient not reporting pain at this time Cognition Arousal/Alertness: Delayed response to stimuli Attention Span: Appears intact Orientation Level: Oriented x4 Following commands: Able to follow commands appropriately with tactile cueing Able to follow commands appropriately with verbal cueing Follows one step commands with increased time Safety Judgment: Decreased awareness of need for assistance Decreased awareness of need for safety Awareness of Errors: Decreased awareness of errors Home Living Lives with: Alone, my 3 cats Home Type: Apartment Home Layout: One level Stairs to enter: None Stairs inside home: none Home Equipment: None Functional Mobility PLOF: Patient reports being complete independent with all functional mobility prior to onset. Activities of Daily Living PLOF: Patient reports being complete independent with all ADL's prior toonset. Fall History: Yes, patient reports 5-10 fall(s) in the last 6 months. The most recent fall was last Saturday01/03/25. Objective Vitals Pre-intervention vitals Heart rate: 61 beats per minute Blood pressure: 143/85 mmHg SpO2: 100% O2: 2 (L/min) nasal cannula Basic Strength Assessment BLE 2/5 Range of Motion Assessment BLE moderate limitation, slowness of movement Sensation Sensation is intact and equal bilaterally. Coordination Tapping (foot): LLE (2) Moderate Impairment: Able to accomplish activity; movements are slow, awkward, and unsteady, RLE (2) Moderate Impairment: Able to accomplish activity; movements are slow, awkward, and unsteady Functional Mobility Bed Mobility Rolling Left: maximal assistance Supine to Sit: maximal assistance, 2-person assist, to the left, via logroll Sit to Supine: maximal assistance, 2-person assist Transfers Sit to Stand: moderate assistance, 2-person assist, rolling walker used Stand to Sit: moderate assistance, 2-person assist Gait Standing only ~15sec with modA x2 and RW, noted marked post lean Stair Management Worked on transfers, static postures in sitting and standing Wheelchair Mobility Worked on transfers, static postures in sitting and standing Outcome Measures AM-PAC Basic Mobility Inpatient Short Form How much difficulty does the patient currently have: Turning over in bed (including adjusting bedclothes, sheets, and blankets)? (1) Total/Unable (not able to do the activity or can only perform the activity using assistive devices or requires assistance from another person, including supervision or cueing for safety) Sitting down on and standing up from a chair with arms (e.g., wheelchair, bedside commode, etc.)? (1) Total/Unable (not able to do the activity or can only perform the activity using assistive devices or requires assistance from another person, including supervision or cueing for safety) Moving from lying on back to sitting on side of bed? (1) Total/Unable (not able to do the activity or can only perform the activity using assistive devices or requires assistance from another person,including supervision or cueing for safety) How much help from another person does the patient currently need: Moving to and from a bed to a chair (including a wheelchair)? (2) A lot (Maximal/Moderate assist) Need to walk in hospital room? (1) Total/Unable (Total assist/dependent) Climbing 3-5 steps with a railing? (1) Total/Unable (Total assist/dependent) Score Raw score=7 t-scale score=26.42 Standard error=4.33 [facility] 0-100%=92.36% MDC=4.72 A raw score of >= 16 is significantly associated with increased odds of discharge to home in addition to consideration made for the patient's cognition and social determinants of health. Balance Static/dynamic sitting and static/dynamic standing balance grades Balance Grade Sitting Static Fair - patient able to maintain balance with handhold support; may require occasional minimal assistance Poor - patient requires handhold support and moderate to maximal assistance to maintain position Sitting Dynamic Poor - patient unable to accept challenge or move without loss of balance Standing Static Poor - patient requires handhold support and moderate to maximal assistance to maintain position Standing Dynamic Poor - patient unable to accept challenge or move without loss of balance Activity Tolerance Patient limited with activity/intervention due to fatigue, deconditioning, weakness, cognitive impairment, and difficulty following commands Treatment Pt with overall slow to respond and bradykinesia like display. However, pt responsive needing cues for follow-through with repetition. Pt with overall LOB x2 while seated posteriorly and with attempts for sit to stand 1x with RW modA x2, again pt with posterior leaning/listing throughout with poor spatial awareness/correction. Attempts for LE shifting posteriorly for improved static standing ~15sec Assessment Patient demonstrates impairments and functional limitations of weakness, limited endurance, decreased mobility and impaired safety. Patient able to demonstrate sit to stand with RW modA x2 and staticstanding ~15sec. Patient would benefit from continued skilled PT services due to cooperation to improve functional mobility, activity tolerance, pain management to return to PLOF. Problems: Decreased functional mobility, Decreased gait tolerance, Decreased strength, Decreased activity tolerance, Impaired sitting balance, Impaired standing balance Rehab potential: Good for stated goals Plan Treatment Plan: Therapeutic Exercise, Therapeutic Activity, Gait Training, Neuromuscular Re-education, Transfer Training, Balance Training, Strengthening PT Frequency/Duration: 5x/week for 14 days Recommendations Discharge recommendations: Patient would benefit from 3 hours of intensive multidisciplinary therapy per day to maximize functional outcomes and address functional limitations to return to highest level of functioning. DME recommendations: Unable to make recommendations at this time. Goals [id number]: By the target date, patient will perform [id number] with modified independence, utilizing bed railing, to improve independence with bed mobility. [id number]: By the target date, patient will perform sit to stand with modified independence and rolling walker to improve independence with functional mobility. Transfer: By the target date, patient will perform stand-pivot transfer to a bedside commode, recliner chair, or wheelchair with modified independence and utilizing rolling walker, demonstrating ability to safely transfer while in hospital setting to improve independence with functional mobility. Gait: Patient will ambulate 150ft with minimal assistance and utilizing rolling walker in order to increase independence with ambulation and improve balance with ambulation and decrease risk of falling Target Date: 01/23/2025 Goals were discussed with patient Education Patient educated on safety and role of physical therapy and following, they were able to verbalize and demonstrate understanding. No further questions or concerns stated. Interdisciplinary Communication Following treatment, therapist communicated with nursing regarding patient's performance during physical therapy session. Patient Disposition Upon Leaving Supine in bed, Call Light/Pull Cord in reach, HOB >30 degrees, Bed Alarm applied , Fall mat placed If this patient discharges prior to next therapy session, this note serves as the patient's discharge summary. Electronically signed by Gregg Mirza PT - 01/09/25 - 11:58 AM EDT PT Evaluation Completed * Carlee Sutton MD - 01/09/2025 8:43 AM EDT [facility] MEDICINE PROGRESS NOTE: Patient: Prosper Douglas Date: 01/09/2025 ASSESSMENT and PLAN: Prosper Douglas is a 59 y.o. male with PMHx of depression, alcohol dependence, and malnutritionwith iron deficiency anemia who presented on 01/05/2025 after a falls with ORTIZ and other complaints. Workup revealed. DIAGNOSIS: Right SDH-Right small cerebellar hemorrhage and small amount of hemorrhage layering along the left tentorium. - S/p platelet transfusions, - fall risk. Fall precautions Pancytopenia - Normally pt has a hx of Thrombocytopenia - check iron stores as well as Vitamin b12, Folate - stable hematologic indices. - Platelets are up to 123k Etoh Use Disorder - Monitor for signs of Alcohol withdrawal - Continue Thiamine, MVI and Folate - Monitor Mg and Phos stores, given the risk of refeeding syndrome. Am labs ordered. HTN - Essential - Must control BP effectively given SDH - Keep SBP btw 120-130. 5. Abnormal transaminases l -likely related to underlying excessive alcohol use -monitor 6 Hypomagnesemia, improved - Due to alcoholism. - typically seen in refeeding syndrome - monitor 7 -stable -baseline unknown Left eye conjunctivitis. - likely bacterial - Eye drops - reassess -stable medically - VTE Prophylaxis: Mechanical VTE prophylaxis CODE STATUS : Same as listed above on Epic Facesheet Previous Living Condition: Home Expected Disposition: To be Determined Expected Discharge Date: To be determined pending rate of clinical recovery, general progress, and response to therapy with evolving data and workup Subjective Patient seen and examined at bedside this AM. Objective Vitals: Temp: [98 ??F (36.7 ??C)-98.3 ??F (36.8 ??C)] 98.3 ??F (36.8 ??C) Pulse: [55-92] 68 Resp: [10-17] 12 BP: (109-177)/(67-109) 148/93 FiO2 (%): [40 %] 40 % Intake/Output: Intake/Output Summary (Last 24 hours) at 01/09/2025 0843 Last data filed at 01/09/2025 0532 Gross per 24 hour Intake -- Output 2000 ml Net -2000 ml Physical exam: General: Looks comfortable and no distress HEENT: Head atraumatic, normal cephalic. Pupil bilateral equal and reacting. Conjunctive are normal. Neck: Supple. No JVD noted CVS: S1, S2, no S3 or S4. Regular rate and rhythm no murmur. Lungs: Bilateral air entry. Normal chest expansion. Clear to auscultation bilaterally. Abdomen: Soft. Nontender. Positive bowel sounds. 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 No gross neurological focal deficits. Musculoskeletal: Range of motion is normal. No pedal edema. Skin: Warm and dry on exposed surface. Psychiatry: Mood appropriate Medications: Scheduled Meds: cloNIDine 0.1 mg oral TID 0.1 mg at 01/09/25 0831 erythromycin 0.5 inch left eye Q4H 1 g at 01/09/25 0831 folic acid 1 mg oral Daily 1 mg at 01/09/25 0830 metoprolol tartrate 50 mg oral BID 50 mg at 01/09/25 0830 pantoprazole 40 mg oral Daily 40 mg at 01/09/25 0830 [START ON 01/10/2025] thiamine 200 mg oral Daily Continuous Infusions: Current Facility-Administered Medications Medication Dose Route Frequency Provider Last Rate Last Admin acetaminophen (TYLENOL) tablet 1,000 mg 1,000 mg oral Q6H PRN Jarek Connor MD cloNIDine (CATAPRES) tablet 0.1 mg 0.1 mg oral Q4H PRN Jarek Connor MD 0.1 mg at 01/07/25 0911 cloNIDine (CATAPRES) tablet 0.1 mg 0.1 mg oral TID Minna Osuna MD 0.1 mg at 01/09/25 0831 diazePAM (VALIUM) injection 5 mg 5 mg intravenous Q5 Min PRN Jarek Connor MD 5 mg at 01/06/25 0139 docusate sodium (COLACE) capsule 100 mg 100 mg oral BID PRN Jarek Connor MD erythromycin 5 mg/gram (0.5 %) ophthalmic ointment 1 g 0.5 inch left eye Q4H Jarek Connor MD 1 g at 01/09/25 0831 folic acid (FOLVITE) tablet 1 mg 1 mg oral Daily Minna Osuna MD 1 mg at 01/09/25 0830 hydrALAZINE (APRESOLINE) injection 10 mg 10 mg intravenous Q4H PRN Jarek Connor MD LORazepam (ATIVAN) injection 1 mg 1 mg intravenous Q30 Min PRN Minna Osuna MD Or LORazepam (ATIVAN) tablet 1 mg 1 mg oral Q30 Min PRN Minna Osuna MD LORazepam (ATIVAN) injection 2 mg 2 mg intravenous Q30 Min PRN Minna Osuna MD Or LORazepam (ATIVAN) tablet 2 mg 2 mg oral Q30 Min PRN Minna Osuna MD LORazepam (ATIVAN) injection 3 mg 3 mg intravenous Q30 Min PRN Minna Osuna MD Or LORazepam (ATIVAN) tablet 3 mg 3 mg oral Q30 Min PRN Minna Osuna MD LORazepam (ATIVAN) injection 4 mg 4 mg intravenous Q30 Min PRN Minna Osuna MD Or LORazepam (ATIVAN) tablet 4 mg 4 mg oral Q30 Min PRN Minna Osuna MD LORazepam (ATIVAN) tablet 1 mg 1 mg oral Q8H PRN Jarek Connor MD LORazepam (ATIVAN) tablet 1 mg 1 mg oral Q4H PRN Carlee Sutton MD magnesium sulfate IVPB 2 g in sterile water 50 mL (premix) 2 g intravenous Daily PRN Jarek Connor MD magnesium sulfate IVPB 2 g in sterile water 50 mL (premix) 2 g intravenous BID PRN Jarek Connor MD melatonin tablet 5 mg 5 mg oral Every Night PRN Jarek Connor MD metoprolol tartrate (LOPRESSOR) tablet 50 mg 50 mg oral BID Minna Osuna MD 50 mg at 01/09/25 0830 morphine injection 2 mg 2 mg intravenous Q4H PRN Jarek Connor MD naloxone (NARCAN) injection 0.2 mg 0.2 mg intravenous Q2 Min PRN Jarek Connor MD ondansetron (ZOFRAN-ODT) disintegrating tablet 4 mg 4 mg oral Q8H PRN Jarek Connor MD Or ondansetron (ZOFRAN) injection 4 mg 4 mg intravenous Q4H PRN Jarek Connor MD pantoprazole (PROTONIX) EC tablet 40 mg 40 mg oral Daily Jarek Connor MD 40 mg at 01/09/25 0830 potassium chloride (KLOR-CON) ER tablet 40 mEq 40 mEq oral 4x Daily PRN Jarek Connor MD 40 mEq at01/08/25 0401 potassium chloride IVPB 10 mEq in 100 mL sterile water (premix) 10 mEq intravenous Q1H PRN Jarek Connor MD [START ON 01/10/2025] thiamine tablet 200 mg 200 mg oral Daily Carlee Sutton MD PRN Meds: @MEDSPRN@ Labs: Results for orders placed or performed during the hospital encounter of 01/05/25 (from the past 24 hours) Glucose, Nova Meter Status: Abnormal Collection Time: 01/08/25 11:23 AM Result Value Ref Range POC-GLUCOSE 116 (H) 70 - 110 mg/dL Coroner Forensic Technician [id number] Glucose, Nova Meter Status: Abnormal Collection Time: 01/08/25 4:45 PM Result Value Ref Range POC-GLUCOSE 136 (H) 70 - 110 mg/dL Coroner Forensic Technician [id number] Comprehensive metabolic panel Status: Abnormal Collection Time: 01/09/25 2:22 AM Result Value Ref Range Sodium 140 136 - 145 meq/L Potassium 3.9 3.4 - 5.1 meq/L Chloride 103 98 - 112 meq/L CO2 25 22 - 29 meq/L Calcium 9.0 8.4 - 10.2 mg/dL Glucose 104 (H) 74 - 100 mg/dL BUN 22.1 8.4 - 25.7 mg/dL Creatinine 0.75 0.72 - 1.25 mg/dL BUN/Creatinine 29 (H) 8 - 20 eGFR (mL/min/1.73m2) 104 >=60 mL/min/1.73m2 Albumin 2.8 (L) 3.5 - 5.0 g/dL Alkaline Phosphatase 46 40 - 150 U/L ALT 229 (H) <=45 U/L AST 134 (H) 11 - 34 U/L Total Bilirubin 0.6 0.2 - 1.2 mg/dL Protein, Total 6.4 6.4 - 8.3 g/dL Globulin 3.6 2.5 - 4.1 g/dL Anion Gap 16 (H) 4 - 12 A/G Ratio 0.8 0.7 - 1.9 Osmolality Calc 283.1 mOsm/kg CBC - Hemogram (-BKR) Status: Abnormal Collection Time: 01/09/25 2:22 AM Result Value Ref Range WBC 3.6 (L) 4.2 - 9.1 K/??L RBC 2.92 (L) 4.63 - 6.08 M/??L Hemoglobin 10.5 (L) 13.7 - 17.5 GM/DL Hematocrit 31.0 (L) 40.1 - 51.0 % MCV 106 (H) 79 - 92 fL MCH 36.0 (H) 25.7 - 32.2 pg MCHC 33.9 32.3 - 36.5 GM/DL RDW 14.6 (H) 11.6 - 14.4 % Platelets 123 (L) 140 - 375 K/CU MM MPV 9.1 (L) 9.4 - 12.4 fL Radiology: Radiology Results (last 3 days) Procedure Component Value Units Date/Time CT brain without IV contrast [[id number]] Collected: 01/06/25839 Order Status: Completed Updated: 01/06/25934 Narrative: HEAD CT HISTORY: Subdural hemorrhage follow-up. COMPARISON: One day prior. TECHNIQUE: Multiple axial CT images were performed from the foramen magnum to the vertex without enhancement. This study was performed with techniques to keep radiation doses as low as reasonably achievable, (ALARA). Individualized dose reduction techniques using automated exposure control or adjustment of mA and/or kV according to the patient size were employed. FINDINGS: Again seen is high attenuation extra-axial fluid collection overlying the right frontal and parietal lobes. This is similar to the prior study. This measures approximately 4 mm in transverse dimension. The hemorrhage extends posteriorly and inferiorly over the tentorium. No intra-axial hemorrhage is identified. Impression: Stable appearance of hemorrhage overlying the right frontal and parietal lobes and extending over the tentorium consistent with subdural hemorrhage. Images reviewed, interpreted, and dictated by Dr. Ricky Monroe. Transcribed by Robert Amaya PA-C. Signed: 01/09/2025 * Minna Osuna MD - 01/08/2025 12:41 PM EDT [facility] Consult Note Date of Service: 01/08/2025 Time: 12:17 AM HPI: This is a 59 y.o. year old male with past medical history as below. He presented to the ED on 01/05 with left eye discharge, multiple falls, and a headache. Upon arrival, labs of significance includedplatelets 62, creatinine 1.37, AST 151, ALT 82, and magnesium 1.5. CT brain revealed mixed density right subdural hemorrhage with an acute component measuring 5.5 mm and probable small hemorrhage along the right cerebellum and left tentorium. Neurosurgery was consulted and he was given IV vitamin [place] with two packs of platelets. He was admitted to the unit and Pulmonary has been consulted forcritical care management. 01/07: seen and examined, critically ill, remains having tremors and Hypertension but improved sincescheduled ativan and CIWA prn ativan, De to sleepiness we reduced the ativan to 1 mg q 4 hrs from 2mg q4 hrs, Hb stable, no fever or leukocytosis. No more headache, or blurry vision, ecchymosis noted, No body hematoma. NSG ok to start DVT prophylaxis 01/08: seen and examined, more awake, able to answer questions, seems mildly depressed, on O2 at rate of 2LPM, worse CPAP at night and with sleep, patient Bp elevated urgency systolic 166 mmHg-addedmetoprolol 50 mg BID, and clonidine 0.1 mg TID , Thrombocytopenia and PLT 80K-- SCD only avoid anticoagulation. Na 139. , hypokalemia and being replaced . RUTHIE improved. Continue ativan 1 mg q4 hrs; hopefully plan to taper in the next few days. Off IVF. Add thiamin and folic acid. PAST MEDICAL HISTORY: Past Medical History: Diagnosis Date Alcohol abuse GERD (gastroesophageal reflux disease) Hypertension PAST SURGICAL HISTORY: Past Surgical History: Procedure Laterality Date ESOPHAGECTOMY Allergies: No Known Allergies SOCIAL HISTORY: Social History Tobacco Use Smoking status: Never Smokeless tobacco: Never Substance Use Topics Alcohol use: Yes Comment: 2-3 short glasses a day Drug use: Never FAMILY HISTORY: family history is not on file. Review of Systems Unable to perform ROS: Mental status change (Drowsy s/p Valium) Vital Signs Temp: [98.2 ??F (36.8 ??C)-98.3 ??F (36.8 ??C)] 98.3 ??F (36.8 ??C) Pulse: [62-96] 92 Resp: [-] 13 BP: (101-166)/(67-109) 159/101 FiO2 (%): [40 %] 40 % Current: Temp: 98.3 ??F (36.8 ??C) Pulse: 92 Resp: 13 BP: (!) 159/101 SpO2: 98 % 24 Hour: BP Min: 101/71 Max: 166/103 Temp Min: 98.2 ??F (36.8 ??C) Max: 98.3 ??F (36.8 ??C) Pulse Min: 62 Max: 96 Resp Min: 9 Max: 19 SpO2 Min: 98 % Max: 100 % Intake/Output: I/O last 3 completed shifts: In: 1000 [P.O.:1000] Out: 2250 [Urine:2250] Physical Exam Constitutional: General: He is not in acute distress. Appearance: He is ill-appearing. Comments: Drowsy. Room air HENT: Head: Normocephalic. Nose: Nose normal. Mouth/Throat: Mouth: Mucous membranes are moist. Pharynx: Oropharynx is clear. Eyes: Comments: Left eye with yellow discharge and matting Cardiovascular: Rate and Rhythm: Normal rate and regular rhythm. Pulses: Normal pulses. Heart sounds: Normal heart sounds. Pulmonary: Effort: Pulmonary effort is normal. No respiratory distress. Breath sounds: Normal breath sounds. Abdominal: General: Abdomen is flat. Palpations: Abdomen is soft. Musculoskeletal: General: Normal range of motion. Cervical back: Normal range of motion. Skin: General: Skin is warm and dry. Capillary Refill: Capillary refill takes less than 2 seconds. Neurological: Comments: Drowsy s/p Valium Psychiatric: Comments: Unable to assess, patient condition Vent / O2 Management: FiO2 (%): [40 %] 40 % LABS Results for orders placed or performed during the hospital encounter of 01/05/25 (from the past 24 hours) Glucose, Nova Meter Status: Abnormal Collection Time: 01/07/25 3:52 PM Result Value Ref Range POC-GLUCOSE 119 (H) 70 - 110 mg/dL Coroner Forensic Technician [id number] CBC - Hemogram (SJ-BKR) Status: Abnormal Collection Time: 01/08/25 1:58 AM Result Value Ref Range WBC 3.1 (L) 4.2 - 9.1 K/??L RBC 2.84 (L) 4.63 - 6.08 M/??L Hemoglobin 10.1 (L) 13.7 - 17.5 GM/DL Hematocrit 29.8 (L) 40.1 - 51.0 % MCV 105 (H) 79 - 92 fL MCH 35.6 (H) 25.7 - 32.2 pg MCHC 33.9 32.3 - 36.5 GM/DL RDW 14.2 11.6 - 14.4 % Platelets 80 (L) 140 - 375 K/CU MM MPV 9.2 (L) 9.4 - 12.4 fL Comprehensive metabolic panel Status: Abnormal Collection Time: 01/08/25 1:59 AM Result Value Ref Range Sodium 139 136 - 145 meq/L Potassium 3.4 3.4 - 5.1 meq/L Chloride 103 98 - 112 meq/L CO2 26 22 - 29 meq/L Calcium 8.1 (L) 8.4 - 10.2 mg/dL Glucose 99 74 - 100 mg/dL BUN 19.3 8.4 - 25.7 mg/dL Creatinine 0.69 (L) 0.72 - 1.25 mg/dL BUN/Creatinine 28 (H) 8 - 20 eGFR (mL/min/1.73m2) 107 >=60 mL/min/1.73m2 Albumin 2.6 (L) 3.5 - 5.0 g/dL Alkaline Phosphatase 44 40 - 150 U/L ALT 299 (H) <=45 U/L AST 302 (H) 11 - 34 U/L Total Bilirubin 0.6 0.2 - 1.2 mg/dL Protein, Total 5.9 (L) 6.4 - 8.3 g/dL Globulin 3.3 2.5 - 4.1 g/dL Anion Gap 13 (H) 4 - 12 A/G Ratio 0.8 0.7 - 1.9 Osmolality Calc 279.9 mOsm/kg Glucose, Nova Meter Status: Abnormal Collection Time: 01/08/25 11:23 AM Result Value Ref Range POC-GLUCOSE 116 (H) 70 - 110 mg/dL Coroner Forensic Technician [id number] Radiology Radiology Results (last day) No results found for the last 24 hours. Microbiology: Microbiology Results (last 7 days) No results found for the last 168 hours. ASSESSMENT: Pulmonary Consulted for critical care management Currently on room air Never smoker Neuro CT brain - mixed density right subdural hemorrhage with an acute component measuring 5.5 mm and probable small hemorrhage along the right cerebellum and left tentorium Awake, alert Cardiac Hemodynamically stable History of HTN Heme Thrombocytopenia Renal Acute kidney injury, baseline unknown Hypomagnesemia ENT Left eye conjunctivitis GI Transaminitis General ETOH abuse PLAN: -Supplemental O2 for goal sat 92-96% - currently on O at 2 LPM -BABS on O2 2 L with sleep--> add CPAP level 10 at night -S/p falls : CT head 01/05: right subdural hemorrhage with an acute component measuring 5.5 mm and probable small hemorrhage along the right cerebellum and left tentorium -Neurosurgery following: Follow up outpatient in 4 weeks with a repeat CT Head -Awake, able to answer questions, seems mildly depressed, on O2 at rate of 2LPM, worse CPAP at night and with sleep, Thrombocytopenia and PLT 80K-- SCD only avoid anticoagulation. Na 139. RUTHIE improved. Continue ativan 1 mg q4 hrs; hopefully plan to taper in the next few days. Off IVF. Add thiamin and folic acid. -Remains having tremors and Hypertension but improved since scheduled ativan and CIWA prn ativan, De to sleepiness we reduced the ativan to 1 mg q 4 hrs from 2 mg q4 hrs, Hb stable, no fever or leukocytosis. No more headache, or blurry vision, ecchymosis noted, No body hematoma. -CT head 01/06 showed stable hemorrhage overlying the right -Frontal and parietal lobes and extending over the tentorium consistent with subdural hemorrhage. -Hemodynamics: keep MAP > 65 mmHg. atient Bp elevated urgency systolic 166 mmHg-added metoprolol 50 mg BID, and clonidine 0.1 mg TID -Thrombocytopenia: likely due to alcoholism -Platelet was 62K S/P 2 u of platelet --> 92K ETOH delirium CIWA prn ativan Ongoing tremors , Tachycardia--> ativan 1mg q4 hrs Plan TO TAPER IN THE NEXT 1-2 DAYS according to signs of withdrawal Rhabdomyolysis CK 2483 S/p IVF RUTHIE : likely pre-renal.Cr 1.38 High risk of refeeding syndrome Replace electrolytes Hypokalemia and being replaced Oral diet if OK per Neurosurgery Hyponatremia: improved. Monitor Na level-Na 138 Prophylaxis: Protonix. SCD- thrombocytopenia PLT 80K. Anticoagulation on hold secondary to SDH I have personally evaluated the patient; history and review of systems, physical examination, laboratory studies and radiology data. I have actively directed the medical care, formulated diagnosis and plan and discussed it with our team. Chest imaging reviewed independent of the radiologist report. Prognosis: Guarded. High risk of Morbidity and Mortality Full code Disposition intensive care unit Discussed in a multidisciplinary team rounds in the ICU Critically ill, complex case, requires frequent assessments and high level of decision making. Critical care time without procedures is 32 min Minna Osuna MD * DAVID Vaughn - 01/08/2025 10:25 AM EDTSummary: CM Progress Note 2 LNC O2 Ativan CIWA No PT/OT evals Neurosx signed off DC plan is home w/ family Barrier: medical readiness Expected DC Date: TBD CM will continue to follow DAVID Valerio, SURFBOARD MAKER * Whitney Moran MD - 01/08/2025 8:03 AM EDT [facility] PROGRESS NOTE: Patient: Prosper Douglas Date: 01/08/2025 ASSESSMENT and PLAN: Prosper Douglas is a 59 y.o. male with PMHx of depression, alcohol dependence, and malnutritionwith iron deficiency anemia who presented on 01/05/2025 after a falls with ORTIZ and other complaints. Workup revealed. DIAGNOSIS: Right SDH-Right small cerebellar hemorrhage and small amount of hemorrhage layering along the left tentorium., Seen and evaluated by neurosurgery, managed nonoperatively thus far, seemingly recovering well Thrombocytopenia, stable, monitor Etoh abuse, now receiving lorazepam per [facility] protocol for alcohol related issues, monitor closely at this point Abnormal transaminases likely related to underlying excessive alcohol use Hypomagnesemia, improved RUTHIE, monitor, baseline unknown Left eye conjunctivitis. PLAN: - Admit to the ICU with Q1H neuro checks - NPO except meds. - D5 1/2NS with mag sulf, MVI, folic acid and thiamine 125 ml/hr x 3 days. - NSG consulted. - H&H q6h, AM labs. - UDS pending - Platelet transfusion x 2 units ordered by ED. Would prefer target > 75-100k, however > 50k may be acceptable if his hemorrhage remains stable on repeat imaging - Stat coag panel. - PCC if INR > 1.5 - IV Vit K ordered - Repeat CT Head at 0500 tomorrow. If neurologic exam declines before then, obtain stat CTH and notify me immediately - Alcohol withdrawal management w CIWA scoring and PRN benzos - seizure precautions. - erythromycin ointment to left eye q4h x 7 days. - Hydralazine IV prn for HTN. 01/06 please note this is my first visit with this patient, patient seen evaluated and examined thismorning, moving all 4 extremities, discussed with the nursing staff when I saw this patient around 6:30 in the morning, he is on rally pack for alcohol-related issues, magnesium has been successfullyreplaced, low- grade temperature noted we will continue to monitor closely, coupon and bond collection clerk on board, neurosurgery following, nonsurgical management thus far for brain bleed, patient's status post platelet transfusion will continue to monitor platelets hemoglobin and hematocrit and address any deficiencies as needed, continue other subset of home meds as indicated continue to monitor for alcohol withdrawal like symptoms, high risk patient for poor outcome requiring ICU level of care, plan discussed with the patient discussed with the nursing in CCU, I have spent 31 minutes of critical care time onthis case today, Complex medical issues with acute on chronic multiple co morbidities requiring multidisciplinary management. 01/07 patient seen evaluated this morning remains in ICU settings hemodynamically stable thrombocytopenia noted modest no family in the room coupon and bond collection clerk following we will continue to monitor closely monitor for alcohol withdrawal like symptoms continue to monitor liver chemistries still on the high side discussed with the patient 01/08 patient seen and evaluated and examined this morning, remains in CCU, no family in the room, more awake and conversant today, seen and evaluated by neurosurgery yesterday no plan for any operative management in regards to brain bleed, patient receiving lorazepam for alcohol related issues, coupon and bond collection clerk on board as well, will continue to monitor labs closely at this juncture, monitor liver chemistries on daily basis, PT OT eval, patient back on diet seemingly tolerating well plan of care discussed with the patient at bedside previously discussed with the nursing as well, transfer out of ICU once okay with coupon and bond collection clerk VTE Prophylaxis: Mechanical VTE prophylaxis CODE STATUS : Same as listed above on Epic Facesheet Previous Living Condition: Home Expected Disposition: To be Determined Expected Discharge Date: To be determined pending rate of clinical recovery, general progress, and response to therapy with evolving data and workup Subjective Patient seen and evaluated today, for further details please refer above in the plan section Objective Vitals: Temp: [98.2 ??F (36.8 ??C)-98.6 ??F (37 ??C)] 98.3 ??F (36.8 ??C) Pulse: [62-98] 84 Resp: [10-19] 15 BP: (97-164)/(67-107) 156/100 FiO2 (%): [40 %] 40 % Intake/Output: Intake/Output Summary (Last 24 hours) at 01/08/2025 0803 Last data filed at 01/08/2025 0500 Gross per 24 hour Intake 800 ml Output 1450 ml Net -650 ml Physical Exam: General: No significant acute distress HEENT: Generally negative Neck: No JVD noted CVS: S1, S2, no S3 or S4 Lungs: Equal air entry symmetrical chest expansion GI: Soft largely nondistended Neurological: Nonfocal generally intact Musculoskeletal: Generally unremarkable Skin: Without any obvious rashes on the exposed surfaces Medications: Scheduled Meds: erythromycin 0.5 inch left eye Q4H 1 g at 01/08/25 0048 LORazepam 1 mg oral Q4H 1 mg at 01/08/25 0327 pantoprazole 40 mg oral Daily 40 mg at 01/07/25 0814 Continuous Infusions: Current Facility-Administered Medications Medication Dose Route Frequency Provider Last Rate Last Admin acetaminophen (TYLENOL) tablet 1,000 mg 1,000 mg oral Q6H PRN Jarek Connor MD cloNIDine (CATAPRES) tablet 0.1 mg 0.1 mg oral Q4H PRN Jarek Connor MD 0.1 mg at 01/07/25 0911 diazePAM (VALIUM) injection 5 mg 5 mg intravenous Q5 Min PRN Jarek Connor MD 5 mg at 01/06/25 0139 docusate sodium (COLACE) capsule 100 mg 100 mg oral BID PRN Jarek Connor MD erythromycin 5 mg/gram (0.5 %) ophthalmic ointment 1 g 0.5 inch left eye Q4H Jarek Connor MD 1 g at 01/08/25 0048 hydrALAZINE (APRESOLINE) injection 10 mg 10 mg intravenous Q4H PRN Jarek Connor MD LORazepam (ATIVAN) injection 1 mg 1 mg intravenous Q30 Min PRN Minna Osuna MD Or LORazepam (ATIVAN) tablet 1 mg 1 mg oral Q30 Min PRN Minna Osuna MD LORazepam (ATIVAN) injection 2 mg 2 mg intravenous Q30 Min PRN Minna Osuna MD Or LORazepam (ATIVAN) tablet 2 mg 2 mg oral Q30 Min PRN Minna Osuna MD LORazepam (ATIVAN) injection 3 mg 3 mg intravenous Q30 Min PRN Minna Osuna MD Or LORazepam (ATIVAN) tablet 3 mg 3 mg oral Q30 Min PRN Minna Osuna MD LORazepam (ATIVAN) injection 4 mg 4 mg intravenous Q30 Min PRN Minna Osuna MD Or LORazepam (ATIVAN) tablet 4 mg 4 mg oral Q30 Min PRN Minna Osuna MD LORazepam (ATIVAN) tablet 1 mg 1 mg oral Q8H PRN Jarek Connor MD LORazepam (ATIVAN) tablet 1 mg 1 mg oral Q4H Minna Osuna MD 1 mg at 01/08/25 0327 magnesium sulfate IVPB 2 g in sterile water 50 mL (premix) 2 g intravenous Daily PRN Jarek Connor MD magnesium sulfate IVPB 2 g in sterile water 50 mL (premix) 2 g intravenous BID PRN Jarek Connor MD melatonin tablet 5 mg 5 mg oral Every Night PRN Jarek Connor MD morphine injection 2 mg 2 mg intravenous Q4H PRN Jarek Connor MD naloxone (NARCAN) injection 0.2 mg 0.2 mg intravenous Q2 Min PRN Jarek Connor MD ondansetron (ZOFRAN-ODT) disintegrating tablet 4 mg 4 mg oral Q8H PRN Jarek Connor MD Or ondansetron (ZOFRAN) injection 4 mg 4 mg intravenous Q4H PRN Jarek Connor MD pantoprazole (PROTONIX) EC tablet 40 mg 40 mg oral Daily Jarek Connor MD 40 mg at 01/07/25 0814 potassium chloride (KLOR-CON) ER tablet 40 mEq 40 mEq oral 4x Daily PRN Jarek Connor MD 40 mEq at01/08/25 0401 potassium chloride IVPB 10 mEq in 100 mL sterile water (premix) 10 mEq intravenous Q1H PRN Jarek Connor MD PRN Meds: @MEDSPRN@ Labs: Results for orders placed or performed during the hospital encounter of 01/05/25 (from the past 24 hours) Glucose, Nova Meter Status: Abnormal Collection Time: 01/07/25 11:58 AM Result Value Ref Range POC-GLUCOSE 116 (H) 70 - 110 mg/dL Coroner Forensic Technician [id number] Glucose, Nova Meter Status: Abnormal Collection Time: 01/07/25 3:52 PM Result Value Ref Range POC-GLUCOSE 119 (H) 70 - 110 mg/dL Coroner Forensic Technician [id number] CBC - Hemogram (SJ-BKR) Status: Abnormal Collection Time: 01/08/25 1:58 AM Result Value Ref Range WBC 3.1 (L) 4.2 - 9.1 K/??L RBC 2.84 (L) 4.63 - 6.08 M/??L Hemoglobin 10.1 (L) 13.7 - 17.5 GM/DL Hematocrit 29.8 (L) 40.1 - 51.0 % MCV 105 (H) 79 - 92 fL MCH 35.6 (H) 25.7 - 32.2 pg MCHC 33.9 32.3 - 36.5 GM/DL RDW 14.2 11.6 - 14.4 % Platelets 80 (L) 140 - 375 K/CU MM MPV 9.2 (L) 9.4 - 12.4 fL Comprehensive metabolic panel Status: Abnormal Collection Time: 01/08/25 1:59 AM Result Value Ref Range Sodium 139 136 - 145 meq/L Potassium 3.4 3.4 - 5.1 meq/L Chloride 103 98 - 112 meq/L CO2 26 22 - 29 meq/L Calcium 8.1 (L) 8.4 - 10.2 mg/dL Glucose 99 74 - 100 mg/dL BUN 19.3 8.4 - 25.7 mg/dL Creatinine 0.69 (L) 0.72 - 1.25 mg/dL BUN/Creatinine 28 (H) 8 - 20 eGFR (mL/min/1.73m2) 107 >=60 mL/min/1.73m2 Albumin 2.6 (L) 3.5 - 5.0 g/dL Alkaline Phosphatase 44 40 - 150 U/L ALT 299 (H) <=45 U/L AST 302 (H) 11 - 34 U/L Total Bilirubin 0.6 0.2 - 1.2 mg/dL Protein, Total 5.9 (L) 6.4 - 8.3 g/dL Globulin 3.3 2.5 - 4.1 g/dL Anion Gap 13 (H) 4 - 12 A/G Ratio 0.8 0.7 - 1.9 Osmolality Calc 279.9 mOsm/kg Radiology: Radiology Results (last 3 days) Procedure Component Value Units Date/Time CT brain without IV contrast [[id number]] Collected: 01/06/25 0840 Order Status: Completed Updated: 01/06/25934 Narrative: HEAD CT HISTORY: Subdural hemorrhage follow-up. COMPARISON: One day prior. TECHNIQUE: Multiple axial CT images were performed from the foramen magnum to the vertex without enhancement. This study was performed with techniques to keep radiation doses as low as reasonably achievable, (ALARA). Individualized dose reduction techniques using automated exposure control or adjustment of mA and/or kV according to the patient size were employed. FINDINGS: Again seen is high attenuation extra-axial fluid collection overlying the right frontal and parietal lobes. This is similar to the prior study. This measures approximately 4 mm in transverse dimension. The hemorrhage extends posteriorly and inferiorly over the tentorium. No intra-axial hemorrhage is identified. Impression: Stable appearance of hemorrhage overlying the right frontal and parietal lobes and extending over the tentorium consistent with subdural hemorrhage. Images reviewed, interpreted, and dictated by Dr. Ricky Monroe. Transcribed by Robert Amaya PA-C. CT brain without IV contrast [[id number]] Collected: 01/05/251919 Order Status: Completed Updated: 01/05/251926 Narrative: CT SCAN OF THE HEAD WITHOUT CONTRAST INDICATION: Alcohol problem. TECHNIQUE: Multiple axial CT images were performed from the foramen magnum to the vertex without contrast. Coronal reconstruction images were obtained from the axial data. This study was performed with techniques to keep radiation doses as low as reasonably achievable (ALARA). Individualized dose reduction techniques using automated exposure control or adjustment of mA and/or KV according to the patient size were employed. COMPARISON: None. FINDINGS: There is no midline shift or hydrocephalus. There is a mixed density right subdural hemorrhage with an acute component. The acute component measures 5 mm on series 2, image 23. This extends along the right tentorium. There may also be a small extra-axial component along the lateral aspect of the right cerebellum. There is also increased density along the left tentorium and a small left subdural hemorrhage is suspected.. No acute soft tissue abnormality. No acute osseous abnormalities are present. Impression: 1. Mixed density right subdural hemorrhage with an acute component measuring 5 mm. Short follow-up is recommended. 2. Probable small hemorrhage along the right cerebellum and small amount of hemorrhage layering along the left tentorium. This was directly communicated to Lana on 01/05/2025 at 7:25 PM. Images reviewed, interpreted, and dictated by Flor Cisneros MD Signed: 01/08/2025 * Sandra Ariza PA-C - 01/07/2025 12:07 PM EDT [facility] NEUROSURGERY PROGRESS NOTE Subjective No acute events or complaints. Physical Exam Blood pressure 109/70, pulse 74, temperature 98.1 ??F (36.7 ??C), temperature source Oral, resp. rate 11, height 1.676 m (5' 6 ), weight 61.2 kg (135 lb), SpO2 100%. AAOx3. GCS 15. Face symmetric. PERRL. EOMI. Moving all extremities well. Labs Results for orders placed or performed during the hospital encounter of 01/05/25 (from the past 24 hours) Hemoglobin and Hematocrit Status: Abnormal Collection Time: 01/06/25 12:54 PM Result Value Ref Range Hemoglobin 9.5 (L) 13.7 - 17.5 GM/DL Hematocrit 27.6 (L) 40.1 - 51.0 % Phosphorus Status: Normal Collection Time: 01/06/25 12:54 PM Result Value Ref Range Phosphorus 3.0 2.5 - 4.5 mg/dL Glucose, Nova Meter Status: None Collection Time: 01/06/25 5:59 PM Result Value Ref Range POC-GLUCOSE 90 70 - 110 mg/dL Coroner Forensic Technician [id number] Glucose, Nova Meter Status: Abnormal Collection Time: 01/06/25 6:02 PM Result Value Ref Range POC-GLUCOSE 140 (H) 70 - 110 mg/dL Coroner Forensic Technician [id number] Hemoglobin and Hematocrit Status: Abnormal Collection Time: 01/06/25 6:09 PM Result Value Ref Range Hemoglobin 9.3 (L) 13.7 - 17.5 GM/DL Hematocrit 26.2 (L) 40.1 - 51.0 % ECG 12 lead Status: None (In process) Collection Time: 01/06/25 8:34 PM Result Value Ref Range SYSTOLIC BLOOD PRESSURE (MCT) 109 mmHg DIASTOLIC BLOOD PRESSURE (MCT) 70 mmHg VENTRICULAR RATE EKG/MIN 84 BPM ATRIAL RATE (MCT) 84 BPM MA Interval 138 ms QRS-INTERVAL (MSEC) 90 ms QT Interval 416 ms QTC Interval 491 ms P [place] 56 degrees R AXIS (MCT) 77 degrees T Wave [place] 79 degrees [place] Diagnosis Normal sinus rhythm Prolonged QT Abnormal ECG When compared with ECG of 05-JAN-2025 18:11, No significant change was found Comprehensive metabolic panel Status: Abnormal Collection Time: 01/07/25 3:03 AM Result Value Ref Range Sodium 136 136 - 145 meq/L Potassium 3.5 3.4 - 5.1 meq/L Chloride 99 98 - 112 meq/L CO2 25 22 - 29 meq/L Calcium 8.2 (L) 8.4 - 10.2 mg/dL Glucose 97 74 - 100 mg/dL BUN 24.6 8.4 - 25.7 mg/dL Creatinine 1.11 0.72 - 1.25 mg/dL BUN/Creatinine 22 (H) 8 - 20 eGFR (mL/min/1.73m2) 76 >=60 mL/min/1.73m2 Albumin 3.0 (L) 3.5 - 5.0 g/dL Alkaline Phosphatase 51 40 - 150 U/L ALT 392 (H) <=45 U/L AST 694 (H) 11 - 34 U/L Total Bilirubin 0.7 0.2 - 1.2 mg/dL Protein, Total 6.6 6.4 - 8.3 g/dL Globulin 3.6 2.5 - 4.1 g/dL Anion Gap 16 (H) 4 - 12 A/G Ratio 0.8 0.7 - 1.9 Osmolality Calc 276.1 mOsm/kg CBC - Hemogram (-BKR) Status: Abnormal Collection Time: 01/07/25 3:03 AM Result Value Ref Range WBC 4.2 4.2 - 9.1 K/??L RBC 2.81 (L) 4.63 - 6.08 M/??L Hemoglobin 10.0 (L) 13.7 - 17.5 GM/DL Hematocrit 29.4 (L) 40.1 - 51.0 % MCV 105 (H) 79 - 92 fL MCH 35.6 (H) 25.7 - 32.2 pg MCHC 34.0 32.3 - 36.5 GM/DL RDW 14.2 11.6 - 14.4 % Platelets 92 (L) 140 - 375 K/CU MM MPV 9.4 9.4 - 12.4 fL CBC Scan Status: Abnormal Collection Time: 01/07/25 3:03 AM Result Value Ref Range Platelet Estimate Decreased (A) Adequate RBC Morphology abnormal (A) Normal Anisocytosis 1+ Hypochromia 1+ Polychromasia 1+ Macrocytes 1+ Microcytes 1+ Poikilocytes 1+ Phosphorus Status: Normal Collection Time: 01/07/25 3:03 AM Result Value Ref Range Phosphorus 2.7 2.5 - 4.5 mg/dL Glucose, Nova Meter Status: Abnormal Collection Time: 01/07/25 11:58 AM Result Value Ref Range POC-GLUCOSE 116 (H) 70 - 110 mg/dL Coroner Forensic Technician [id number] CT brain without IV contrast Narrative: HEAD CT HISTORY: Subdural hemorrhage follow-up. COMPARISON: One day prior. TECHNIQUE: Multiple axial CT images were performed from the foramen magnum to the vertex without enhancement. This study was performed with techniques to keep radiation doses as low as reasonably achievable, (ALARA). Individualized dose reduction techniques using automated exposure control or adjustment of mA and/or kV according to the patient size were employed. FINDINGS: Again seen is high attenuation extra-axial fluid collection overlying the right frontal and parietal lobes. This is similar to the prior study. This measures approximately 4 mm in transverse dimension. The hemorrhage extends posteriorly and inferiorly over the tentorium. No intra-axial hemorrhage is identified. Impression: Stable appearance of hemorrhage overlying the right frontal and parietal lobes and extending over the tentorium consistent with subdural hemorrhage. Images reviewed, interpreted, and dictated by Dr. Ricky Monroe. Transcribed by Robert Amaya PA-C. Assessment 59 yoM with alcohol dependence with a SDH Plan Can downgrade to the floor No further neurosurgical recommendations Follow up outpatient in 4 weeks with a repeat CTH prior to the appointment Cosigned by Russel Guerrero MD at 01/21/2025 1:05 PM EDT * Minna Osuna MD - 01/07/2025 11:37 AM EDT [facility] Consult Note Date of Service: 01/07/2025 Time: 12:17 AM HPI: This is a 59 y.o. year old male with past medical history as below. He presented to the ED on 01/05 with left eye discharge, multiple falls, and a headache. Upon arrival, labs of significance includedplatelets 62, creatinine 1.37, AST 151, ALT 82, and magnesium 1.5. CT brain revealed mixed density right subdural hemorrhage with an acute component measuring 5.5 mm and probable small hemorrhage along the right cerebellum and left tentorium. Neurosurgery was consulted and he was given IV vitamin [place] with two packs of platelets. He was admitted to the unit and Pulmonary has been consulted forcritical care management. 01/07: seen and examined, critically ill, remains having tremors and Hypertension but improved sincescheduled ativan and CIWA prn ativan, De to sleepiness we reduced the ativan to 1 mg q 4 hrs from 2mg q4 hrs, Hb stable, no fever or leukocytosis. No more headache, or blurry vision, ecchymosis noted, No body hematoma. NSG ok to start DVT prophylaxis PAST MEDICAL HISTORY: Past Medical History: Diagnosis Date Alcohol abuse GERD (gastroesophageal reflux disease) Hypertension PAST SURGICAL HISTORY: Past Surgical History: Procedure Laterality Date ESOPHAGECTOMY Allergies: No Known Allergies SOCIAL HISTORY: Social History Tobacco Use Smoking status: Never Smokeless tobacco: Never Substance Use Topics Alcohol use: Yes Comment: 2-3 short glasses a day Drug use: Never FAMILY HISTORY: family history is not on file. Review of Systems Unable to perform ROS: Mental status change (Drowsy s/p Valium) Vital Signs Temp: [98.1 ??F (36.7 ??C)-99.7 ??F (37.6 ??C)] 98.1 ??F (36.7 ??C) Pulse: [65-111] 74 Resp: [8-29] 11 BP: (101-149)/(57-96) 109/70 Current: Temp: 98.1 ??F (36.7 ??C) Pulse: 74 Resp: 11 BP: 109/70 SpO2: 100 % 24 Hour: BP Min: 101/67 Max: 149/92 Temp Min: 98.1 ??F (36.7 ??C) Max: 99.7 ??F (37.6 ??C) Pulse Min: 65 Max: 111 Resp Min: 8 Max: 29 SpO2 Min: 88 % Max: 100 % Intake/Output: I/O last 3 completed shifts: In: 2338 [P.O.:200; I.V.:635.4; Blood:452.6; IV Piggyback:1050] Out: 1400 [Urine:1400] Physical Exam Constitutional: General: He is not in acute distress. Appearance: He is ill-appearing. Comments: Drowsy. Room air HENT: Head: Normocephalic. Nose: Nose normal. Mouth/Throat: Mouth: Mucous membranes are moist. Pharynx: Oropharynx is clear. Eyes: Comments: Left eye with yellow discharge and matting Cardiovascular: Rate and Rhythm: Normal rate and regular rhythm. Pulses: Normal pulses. Heart sounds: Normal heart sounds. Pulmonary: Effort: Pulmonary effort is normal. No respiratory distress. Breath sounds: Normal breath sounds. Abdominal: General: Abdomen is flat. Palpations: Abdomen is soft. Musculoskeletal: General: Normal range of motion. Cervical back: Normal range of motion. Skin: General: Skin is warm and dry. Capillary Refill: Capillary refill takes less than 2 seconds. Neurological: Comments: Drowsy s/p Valium Psychiatric: Comments: Unable to assess, patient condition Vent / O2 Management: LABS Results for orders placed or performed during the hospital encounter of 01/05/25 (from the past 24 hours) Hemoglobin and Hematocrit Status: Abnormal Collection Time: 01/06/25 12:54 PM Result Value Ref Range Hemoglobin 9.5 (L) 13.7 - 17.5 GM/DL Hematocrit 27.6 (L) 40.1 - 51.0 % Phosphorus Status: Normal Collection Time: 01/06/25 12:54 PM Result Value Ref Range Phosphorus 3.0 2.5 - 4.5 mg/dL Glucose, Nova Meter Status: None Collection Time: 01/06/25 5:59 PM Result Value Ref Range POC-GLUCOSE 90 70 - 110 mg/dL Coroner Forensic Technician [id number] Glucose, Nova Meter Status: Abnormal Collection Time: 01/06/25 6:02 PM Result Value Ref Range POC-GLUCOSE 140 (H) 70 - 110 mg/dL Coroner Forensic Technician [id number] Hemoglobin and Hematocrit Status: Abnormal Collection Time: 01/06/25 6:09 PM Result Value Ref Range Hemoglobin 9.3 (L) 13.7 - 17.5 GM/DL Hematocrit 26.2 (L) 40.1 - 51.0 % ECG 12 lead Status: None (In process) Collection Time: 01/06/25 8:34 PM Result Value Ref Range SYSTOLIC BLOOD PRESSURE (MCT) 109 mmHg DIASTOLIC BLOOD PRESSURE (MCT) 70 mmHg VENTRICULAR RATE EKG/MIN 84 BPM ATRIAL RATE (MCT) 84 BPM MA Interval 138 ms QRS-INTERVAL (MSEC) 90 ms QT Interval 416 ms QTC Interval 491 ms P [place] 56 degrees R AXIS (MCT) 77 degrees T Wave [place] 79 degrees [place] Diagnosis Normal sinus rhythm Prolonged QT Abnormal ECG When compared with ECG of 05-JAN-2025 18:11, No significant change was found Comprehensive metabolic panel Status: Abnormal Collection Time: 01/07/25 3:03 AM Result Value Ref Range Sodium 136 136 - 145 meq/L Potassium 3.5 3.4 - 5.1 meq/L Chloride 99 98 - 112 meq/L CO2 25 22 - 29 meq/L Calcium 8.2 (L) 8.4 - 10.2 mg/dL Glucose 97 74 - 100 mg/dL BUN 24.6 8.4 - 25.7 mg/dL Creatinine 1.11 0.72 - 1.25 mg/dL BUN/Creatinine 22 (H) 8 - 20 eGFR (mL/min/1.73m2) 76 >=60 mL/min/1.73m2 Albumin 3.0 (L) 3.5 - 5.0 g/dL Alkaline Phosphatase 51 40 - 150 U/L ALT 392 (H) <=45 U/L AST 694 (H) 11 - 34 U/L Total Bilirubin 0.7 0.2 - 1.2 mg/dL Protein, Total 6.6 6.4 - 8.3 g/dL Globulin 3.6 2.5 - 4.1 g/dL Anion Gap 16 (H) 4 - 12 A/G Ratio 0.8 0.7 - 1.9 Osmolality Calc 276.1 mOsm/kg CBC - Hemogram (SJ-BKR) Status: Abnormal Collection Time: 01/07/25 3:03 AM Result Value Ref Range WBC 4.2 4.2 - 9.1 K/??L RBC 2.81 (L) 4.63 - 6.08 M/??L Hemoglobin 10.0 (L) 13.7 - 17.5 GM/DL Hematocrit 29.4 (L) 40.1 - 51.0 % MCV 105 (H) 79 - 92 fL MCH 35.6 (H) 25.7 - 32.2 pg MCHC 34.0 32.3 - 36.5 GM/DL RDW 14.2 11.6 - 14.4 % Platelets 92 (L) 140 - 375 K/CU MM MPV 9.4 9.4 - 12.4 fL CBC Scan Status: Abnormal Collection Time: 01/07/25 3:03 AM Result Value Ref Range Platelet Estimate Decreased (A) Adequate RBC Morphology abnormal (A) Normal Anisocytosis 1+ Hypochromia 1+ Polychromasia 1+ Macrocytes 1+ Microcytes 1+ Poikilocytes 1+ Phosphorus Status: Normal Collection Time: 01/07/25 3:03 AM Result Value Ref Range Phosphorus 2.7 2.5 - 4.5 mg/dL Radiology Radiology Results (last day) No results found for the last 24 hours. Microbiology: Microbiology Results (last 7 days) No results found for the last 168 hours. ASSESSMENT: Pulmonary Consulted for critical care management Currently on room air Never smoker Neuro CT brain - mixed density right subdural hemorrhage with an acute component measuring 5.5 mm and probable small hemorrhage along the right cerebellum and left tentorium Awake, alert Cardiac Hemodynamically stable History of HTN Heme Thrombocytopenia Renal Acute kidney injury, baseline unknown Hypomagnesemia ENT Left eye conjunctivitis GI Transaminitis General ETOH abuse PLAN: -Supplemental O2 for goal sat 92-96% - currently on O at 2 LPM -BABS on O2 2 L with sleep--> add CPAP level 10 at night -S/p falls -CT head 01/05: right subdural hemorrhage with an acute component measuring 5.5 mm and probable small hemorrhage along the right cerebellum and left tentorium -Neurosurgery following -Remains having tremors and Hypertension but improved since scheduled ativan and CIWA prn ativan, De to sleepiness we reduced the ativan to 1 mg q 4 hrs from 2 mg q4 hrs, Hb stable, no fever or leukocytosis. No more headache, or blurry vision, ecchymosis noted, No body hematoma. -CT head 01/06 showed stable hemorrhage overlying the right -Frontal and parietal lobes and extending over the tentorium consistent with subdural hemorrhage. -Hemodynamics: keep MAP > 65 mmHg -Add NS 75 cc/hr -Thrombocytopenia: likely due to alcoholism -Platelet was 62K S/P 2 u of platelet --> 92K ETOH delirium CIWA prn ativan Ongoing tremors ,tachycardia--> added ativan 2mg q4 hrs Rhabdomyolysis CK 2483 Add NS 80cc/hr RUTHIE : likely pre-renal.Cr 1.38 High risk of refeeding syndrome Replace electrolytes NPO: start oral diet if OK per Neurosurgery Hyponatremia: Monitor Na level-Na 133 Prophylaxis: Protonix, NSG ok to start DVT prophylaxis . Will add. Discussed with pharamcy Anticoagulation on hold secondary to SDH I have personally evaluated the patient; history and review of systems, physical examination, laboratory studies and radiology data. I have actively directed the medical care, formulated diagnosis and plan and discussed it with our team. Chest imaging reviewed independent of the radiologist report. Prognosis: Guarded. High risk of Morbidity and Mortality Full code Disposition intensive care unit Discussed in a multidisciplinary team rounds in the ICU Critically ill, complex case, requires frequent assessments and high level of decision making. Critical care time without procedures is 34 min Minna Osuna MD * Whitney Moran MD - 01/07/2025 9:32 AM EDT [facility] MEDICINE PROGRESS NOTE: Patient: Prosper Douglas Date: 01/07/2025 ASSESSMENT and PLAN: Prosper Douglas is a 59 y.o. male with PMHx of depression, alcohol dependence, and malnutritionwith iron deficiency anemia who presented on 01/05/2025 after a falls with ORTIZ and other complaints. Workup revealed. DIAGNOSIS: Right SDH-Right small cerebellar hemorrhage and small amount of hemorrhage layering along the left tentorium. Thrombocytopenia Etoh abuse Abnormal transaminases likely related to underlying excessive alcohol use Hypomagnesemia, improved RUTHIE, monitor, baseline unknown Left eye conjunctivitis. PLAN: - Admit to the ICU with Q1H neuro checks - NPO except meds. - D5 1/2NS with mag sulf, MVI, folic acid and thiamine 125 ml/hr x 3 days. - NSG consulted. - H&H q6h, AM labs. - UDS pending - Platelet transfusion x 2 units ordered by ED. Would prefer target > 75-100k, however > 50k may be acceptable if his hemorrhage remains stable on repeat imaging - Stat coag panel. - PCC if INR > 1.5 - IV Vit K ordered - Repeat CT Head at 0500 tomorrow. If neurologic exam declines before then, obtain stat CTH and notify me immediately - Alcohol withdrawal management w CIWA scoring and PRN benzos - seizure precautions. - erythromycin ointment to left eye q4h x 7 days. - Hydralazine IV prn for HTN. 01/06 please note this is my first visit with this patient, patient seen evaluated and examined thismorning, moving all 4 extremities, discussed with the nursing staff when I saw this patient around 6:30 in the morning, he is on rally pack for alcohol-related issues, magnesium has been successfullyreplaced, low-grade temperature noted we will continue to monitor closely, coupon and bond collection clerk on board, neurosurgery following, nonsurgical management thus far for brain bleed, patient's status post platelet transfusion will continue to monitor platelets hemoglobin and hematocrit and address any deficiencies as needed, continue other subset of home meds as indicated continue to monitor for alcohol withdrawal like symptoms, high risk patient for poor outcome requiring ICU level of care, plan discussed with the patient discussed with the nursing in CCU, I have spent 31 minutes of critical care time onthis case today, Complex medical issues with acute on chronic multiple co morbidities requiring multidisciplinary management. 01/07 patient seen evaluated this morning remains in ICU settings hemodynamically stable thrombocytopenia noted modest no family in the room coupon and bond collection clerk following we will continue to monitor closely monitor for alcohol withdrawal like symptoms continue to monitor liver chemistries still on the high side discussed with the patient 01/08 VTE Prophylaxis: Mechanical VTE prophylaxis CODE STATUS : Same as listed above on Epic Facesheet Previous Living Condition: Home Expected Disposition: To be Determined Expected Discharge Date: To be determined pending rate of clinical recovery, general progress, and response to therapy with evolving data and workup Subjective Patient seen and evaluated today, for further details please refer above in the plan section Objective Vitals: Temp: [98.1 ??F (36.7 ??C)-99.7 ??F (37.6 ??C)] 98.1 ??F (36.7 ??C) Pulse: [65-111] 83 Resp: [829] 16 BP: (101-149)/(57-94) 141/94 Intake/Output: Intake/Output Summary (Last 24 hours) at 01/07/2025 0932 Last data filed at 01/07/2025 0500 Gross per 24 hour Intake 200 ml Output 1200 ml Net -1000 ml Physical Exam: General: No significant acute distress HEENT: Generally negative Neck: No JVD noted CVS: S1, S2, no S3 or S4 Lungs: Equal air entry symmetrical chest expansion GI: Soft largely nondistended Neurological: Nonfocal generally intact Musculoskeletal: Generally unremarkable Skin: Without any obvious rashes on the exposed surfaces Medications: Scheduled Meds: erythromycin 0.5 inch left eye Q4H 1 g at 01/07/25 0911 LORazepam 2 mg oral Q4H 2 mg at 01/07/25 0726 pantoprazole 40 mg oral Daily 40 mg at 01/07/25 0814 Continuous Infusions: Current Facility-Administered Medications Medication Dose Route Frequency Provider Last Rate Last Admin acetaminophen (TYLENOL) tablet 1,000 mg 1,000 mg oral Q6H PRN Jarek Connor MD cloNIDine (CATAPRES) tablet 0.1 mg 0.1 mg oral Q4H PRN Jarek Connor MD 0.1 mg at 01/07/25 0911 diazePAM (VALIUM) injection 5 mg 5 mg intravenous Q5 Min PRN Jarek Connor MD 5 mg at 01/06/25 0139 docusate sodium (COLACE) capsule 100 mg 100 mg oral BID PRN Jarek Connor MD erythromycin 5 mg/gram (0.5 %) ophthalmic ointment 1 g 0.5 inch left eye Q4H Jarek Connro MD 1 g at 01/07/25 0911 hydrALAZINE (APRESOLINE) injection 10 mg 10 mg intravenous Q4H PRN Jarek Connor MD LORazepam (ATIVAN) injection 1 mg 1 mg intravenous Q30 Min PRN Minna Osuna MD Or LORazepam (ATIVAN) tablet 1 mg 1 mg oral Q30 Min PRN Minna Osuna MD LORazepam (ATIVAN) injection 2 mg 2 mg intravenous Q30 Min PRN Minna Osuna MD Or LORazepam (ATIVAN) tablet 2 mg 2 mg oral Q30 Min PRN Minna Osuna MD LORazepam (ATIVAN) injection 3 mg 3 mg intravenous Q30 Min PRN Minna Osuna MD Or LORazepam (ATIVAN) tablet 3 mg 3 mg oral Q30 Min PRN Minna Osuna MD LORazepam (ATIVAN) injection 4 mg 4 mg intravenous Q30 Min PRN Minna Osuna MD Or LORazepam (ATIVAN) tablet 4 mg 4 mg oral Q30 Min PRN Minna Osuna MD LORazepam (ATIVAN) tablet 1 mg 1 mg oral Q8H PRN Jarek Connor MD LORazepam (ATIVAN) tablet 2 mg 2 mg oral Q4H Minna Osuna MD 2 mg at 01/07/25 0726 magnesium sulfate IVPB 2 g in sterile water 50 mL (premix) 2 g intravenous Daily PRN Jarek Connor MD magnesium sulfate IVPB 2 g in sterile water 50 mL (premix) 2 g intravenous BID PRN Jarek Connor MD melatonin tablet 5 mg 5 mg oral Every Night PRN Jarek Connor MD morphine injection 2 mg 2 mg intravenous Q4H PRN Jarek Connor MD naloxone (NARCAN) injection 0.2 mg 0.2 mg intravenous Q2 Min PRN Jarek Connor MD ondansetron (ZOFRAN-ODT) disintegrating tablet 4 mg 4 mg oral Q8H PRN Jarek Connor MD Or ondansetron (ZOFRAN) injection 4 mg 4 mg intravenous Q4H PRN Jarek Connor MD pantoprazole (PROTONIX) EC tablet 40 mg 40 mg oral Daily Jarek Connor MD 40 mg at 01/07/25 0814 potassium chloride (KLOR-CON) ER tablet 40 mEq 40 mEq oral 4x Daily PRN Jarek Connor MD potassium chloride IVPB 10 mEq in 100 mL sterile water (premix) 10 mEq intravenous Q1H PRN Jarek Connor MD sodium chloride 0.9 % infusion 80 mL/hr intravenous Continuous Minna Osuna MD 80 mL/hr at 01/07/250023 80 mL/hr at 01/07/25 0023 PRN Meds: @MEDSPRN@ Labs: Results for orders placed or performed during the hospital encounter of 01/05/25 (from the past 24 hours) Glucose, Nova Meter Status: Abnormal Collection Time: 01/06/25 11:18 AM Result Value Ref Range POC-GLUCOSE 142 (H) 70 - 110 mg/dL Coroner Forensic Technician [id number] Hemoglobin and Hematocrit Status: Abnormal Collection Time: 01/06/25 12:54 PM Result Value Ref Range Hemoglobin 9.5 (L) 13.7 - 17.5 GM/DL Hematocrit 27.6 (L) 40.1 - 51.0 % Phosphorus Status: Normal Collection Time: 01/06/25 12:54 PM Result Value Ref Range Phosphorus 3.0 2.5 - 4.5 mg/dL Glucose, Nova Meter Status: None Collection Time: 01/06/25 5:59 PM Result Value Ref Range POC-GLUCOSE 90 70 - 110 mg/dL Coroner Forensic Technician [id number] Glucose, Nova Meter Status: Abnormal Collection Time: 01/06/25 6:02 PM Result Value Ref Range POC-GLUCOSE 140 (H) 70 - 110 mg/dL Coroner Forensic Technician [id number] Hemoglobin and Hematocrit Status: Abnormal Collection Time: 01/06/25 6:09 PM Result Value Ref Range Hemoglobin 9.3 (L) 13.7 - 17.5 GM/DL Hematocrit 26.2 (L) 40.1 - 51.0 % ECG 12 lead Status: None (In process) Collection Time: 01/06/25 8:34 PM Result Value Ref Range SYSTOLIC BLOOD PRESSURE (MCT) 109 mmHg DIASTOLIC BLOOD PRESSURE (MCT) 70 mmHg VENTRICULAR RATE EKG/MIN 84 BPM ATRIAL RATE (MCT) 84 BPM MA Interval 138 ms QRS-INTERVAL (MSEC) 90 ms QT Interval 416 ms QTC Interval 491 ms P [place] 56 degrees R AXIS (MCT) 77 degrees T Wave [place] 79 degrees [place] Diagnosis Normal sinus rhythm Prolonged QT Abnormal ECG When compared with ECG of 05-JAN-2025 18:11, No significant change was found Comprehensive metabolic panel Status: Abnormal Collection Time: 01/07/25 3:03 AM Result Value Ref Range Sodium 136 136 - 145 meq/L Potassium 3.5 3.4 - 5.1 meq/L Chloride 99 98 - 112 meq/L CO2 25 22 - 29 meq/L Calcium 8.2 (L) 8.4 - 10.2 mg/dL Glucose 97 74 - 100 mg/dL BUN 24.6 8.4 - 25.7 mg/dL Creatinine 1.11 0.72 - 1.25 mg/dL BUN/Creatinine 22 (H) 8 - 20 eGFR (mL/min/1.73m2) 76 >=60 mL/min/1.73m2 Albumin 3.0 (L) 3.5 - 5.0 g/dL Alkaline Phosphatase 51 40 - 150 U/L ALT 392 (H) <=45 U/L AST 694 (H) 11 - 34 U/L Total Bilirubin 0.7 0.2 - 1.2 mg/dL Protein, Total 6.6 6.4 - 8.3 g/dL Globulin 3.6 2.5 - 4.1 g/dL Anion Gap 16 (H) 4 - 12 A/G Ratio 0.8 0.7 - 1.9 Osmolality Calc 276.1 mOsm/kg CBC - Hemogram ([facility]) Status: Abnormal Collection Time: 01/07/25 3:03 AM Result Value Ref Range WBC 4.2 4.2 - 9.1 K/??L RBC 2.81 (L) 4.63 - 6.08 M/??L Hemoglobin 10.0 (L) 13.7 - 17.5 GM/DL Hematocrit 29.4 (L) 40.1 - 51.0 % MCV 105 (H) 79 - 92 fL MCH 35.6 (H) 25.7 - 32.2 pg MCHC 34.0 32.3 - 36.5 GM/DL RDW 14.2 11.6 - 14.4 % Platelets 92 (L) 140 - 375 K/CU MM MPV 9.4 9.4 - 12.4 fL CBC Scan Status: Abnormal Collection Time: 01/07/25 3:03 AM Result Value Ref Range Platelet Estimate Decreased (A) Adequate RBC Morphology abnormal (A) Normal Anisocytosis 1+ Hypochromia 1+ Polychromasia 1+ Macrocytes 1+ Microcytes 1+ Poikilocytes 1+ Radiology: Radiology Results (last 3 days) Procedure Component Value Units Date/Time CT brain without IV contrast [[id number]] Collected: 01/06/25 0840 Order Status: Completed Updated: 01/06/25934 Narrative: HEAD CT HISTORY: Subdural hemorrhage follow-up. COMPARISON: One day prior. TECHNIQUE: Multiple axial CT images were performed from the foramen magnum to the vertex without enhancement. This study was performed with techniques to keep radiation doses as low as reasonably achievable, (ALARA). Individualized dose reduction techniques using automated exposure control or adjustment of mA and/or kV according to the patient size were employed. FINDINGS: Again seen is high attenuation extra-axial fluid collection overlying the right frontal and parietal lobes. This is similar to the prior study. This measures approximately 4 mm in transverse dimension. The hemorrhage extends posteriorly and inferiorly over the tentorium. No intra-axial hemorrhage is identified. Impression: Stable appearance of hemorrhage overlying the right frontal and parietal lobes and extending over the tentorium consistent with subdural hemorrhage. Images reviewed, interpreted, and dictated by Dr. Ricky Monroe. Transcribed by Robert Amaya PA-C. CT brain without IV contrast [[id number]] Collected: 01/05/251919 Order Status: Completed Updated: 01/05/251926 Narrative: CT SCAN OF THE HEAD WITHOUT CONTRAST INDICATION: Alcohol problem. TECHNIQUE: Multiple axial CT images were performed from the foramen magnum to the vertex without contrast. Coronal reconstruction images were obtained from the axial data. This study was performed with techniques to keep radiation doses as low as reasonably achievable (ALARA). Individualized dose reduction techniques using automated exposure control or adjustment of mA and/or KV according to the patient size were employed. COMPARISON: None. FINDINGS: There is no midline shift or hydrocephalus. There is a mixed density right subdural hemorrhage with an acute component. The acute component measures 5 mm on series 2, image 23. This extends along the right tentorium. There may also be a small extra-axial component along the lateral aspect of the right cerebellum. There is also increased density along the left tentorium and a small left subdural hemorrhage is suspected.. No acute soft tissue abnormality. No acute osseous abnormalities are present. Impression: 1. Mixed density right subdural hemorrhage with an acute component measuring 5 mm. Short follow-up is recommended. 2. Probable small hemorrhage along the right cerebellum and small amount of hemorrhage layering along the left tentorium. This was directly communicated to Lana on 01/05/2025 at 7:25 PM. Images reviewed, interpreted, and dictated by Flor Cisneros MD Signed: 01/07/2025 * Michel Haynes, NET WASHER - 01/06/2025 3:57 PM EDTSumriki: KIMBERLY Initial Assessment Care Coordination Initial Assessment Home Environment Type of Residence: (P) Private residence Living Arrangements: (P) Family members Support System: (P) Family members Home Caregiver: Accessibility Issues: (P) None Current Agency Name & Number: Patient returning to prior living situation? (P) Yes Compliance: (P) Patient has moderate rate of compliance with treatment. Motivation: (P) Patient has moderate desire for learning/change. Affect/Behavior: (P) Appropriate Prior/Regular Transportation: (P) Family, Self Current Transportation Agency Information: Needs assistance with transportation:(P) No ADL Screen Current Sensory Deficits: (P) None Patient's Vision Adequate to Safely complete ADLs:(P) Yes Patient's Judgement Adequate to safely completed ADLs: (P) Yes Dressing: (P) Independent Current Home Care Services: Current Home Care Services: (P) None Assistive Devices(P) Yes Patient's Judgement Adequate to Safely Complete Daily Activities: (P) Yes Dressing: (P) Independent Current Lines, Tubes: Special/Community Services: (P) None Transition Needs Expected Discharge Date: Home or Post Acute Services Needed: (P) Home/self care Does the patient have the ability to fill and receive their discharge medications: (P) Yes Discharge plan discussed: (P) The discharge plan was discussed with patient or patient physician relations representative. Discharge Barriers: (P) Medication(s) Type of Assistive Devices Needed for Discharge: (P) None Patient Discharge Goal: (P) Home Mandated Reporting: (P) Not applicable PT/OT/WIRE BENDER HAND Recommendations PT Recommendations: OT Recommendations: WIRE BENDER HAND Recommendations: Pt has a readmission risk score of 11%. Pt is day 1 of 4.6 GMLOS so expected DC date is 01/10/2025.Pt lives w/ family. Pt is independent at baseline. Pt reports no home DME. Pt declines DME or HH atthis time. PT/OT evals are pending. DEMETRIA is aunt Yahaira Cabrera & she can transport. DC plan is home w/ family. Barrier: medical readiness, PT/OT evals, precert is rehab needed. CM will continue to eusebio maia. DAVID Vaughn, SURFBOARD MAKER * Minna Osuna MD - 01/06/2025 1:23 PM EDT ConsultsPULMONARY AND CRITICAL CARE Consult Note Date of Service: 01/06/2025 Time: 12:17 AM HPI: This is a 59 y.o. year old male with past medical history as below. He presented to the ED on 01/05 with left eye discharge, multiple falls, and a headache. Upon arrival, labs of significance includedplatelets 62, creatinine 1.37, AST 151, ALT 82, and magnesium 1.5. CT brain revealed mixed density right subdural hemorrhage with an acute component measuring 5.5 mm and probable small hemorrhage along the right cerebellum and left tentorium. Neurosurgery was consulted and he was given IV vitamin [place] with two packs of platelets. He was admitted to the unit and Pulmonary has been consulted forcritical care management. PAST MEDICAL HISTORY: Past Medical History: Diagnosis Date Alcohol abuse GERD (gastroesophageal reflux disease) Hypertension PAST SURGICAL HISTORY: Past Surgical History: Procedure Laterality Date ESOPHAGECTOMY Allergies: No Known Allergies SOCIAL HISTORY: Social History Tobacco Use Smoking status: Never Smokeless tobacco: Never Substance Use Topics Alcohol use: Yes Comment: 2-3 short glasses a day Drug use: Never FAMILY HISTORY: family history is not on file. Review of Systems Unable to perform ROS: Mental status change (Drowsy s/p Valium) Vital Signs Temp: [98.5 ??F (36.9 ??C)-100.1 ??F (37.8 ??C)] 100.1 ??F (37.8 ??C) Pulse: [83-125] 91 Resp: [3-24] 13 BP: (102-168)/(60-99) 127/71 Current: Temp: 100.1 ??F (37.8 ??C) Pulse: 91 Resp: 13 BP: 127/71 SpO2: 96 % 24 Hour: BP Min: 102/61 Max: 168/94 Temp Min: 98.5 ??F (36.9 ??C) Max: 100.1 ??F (37.8 ??C) Pulse Min: 83 Max: 125 Resp Min: 3 Max: 24 SpO2 Min: 89 % Max: 100 % Height Min: 167.6 cm (5' 6 ) Max: 167.6 cm (5' 6 ) Weight Min: 61.2 kg (135 lb) Max: 61.2 kg (135 lb) Intake/Output: I/O last 3 completed shifts: In: 2138 [I.V.:635.4; Blood:452.6; IV Piggyback:1050] Out: 200 [Urine:200] Physical Exam Constitutional: General: He is not in acute distress. Appearance: He is ill-appearing. Comments: Drowsy. Room air HENT: Head: Normocephalic. Nose: Nose normal. Mouth/Throat: Mouth: Mucous membranes are moist. Pharynx: Oropharynx is clear. Eyes: Comments: Left eye with yellow discharge and matting Cardiovascular: Rate and Rhythm: Normal rate and regular rhythm. Pulses: Normal pulses. Heart sounds: Normal heart sounds. Pulmonary: Effort: Pulmonary effort is normal. No respiratory distress. Breath sounds: Normal breath sounds. Abdominal: General: Abdomen is flat. Palpations: Abdomen is soft. Musculoskeletal: General: Normal range of motion. Cervical back: Normal range of motion. Skin: General: Skin is warm and dry. Capillary Refill: Capillary refill takes less than 2 seconds. Neurological: Comments: Drowsy s/p Valium Psychiatric: Comments: Unable to assess, patient condition Vent / O2 Management: LABS Results for orders placed or performed during the hospital encounter of 01/05/25 (from the past 24 hours) ECG 12 lead Status: None Collection Time: 01/05/25 6:11 PM Result Value Ref Range VENTRICULAR RATE EKG/MIN 108 BPM ATRIAL RATE (MCT) 108 BPM MA Interval 121 ms QRS-INTERVAL (MSEC) 83 ms QT Interval 342 ms QTC Interval 458 ms P [place] 45 degrees R AXIS (MCT) 73 degrees T Wave [place] 64 degrees [place] Diagnosis Sinus tachycardia Baseline artifact No previous ECGs available Confirmed by Ayse MENDOZA STEVE ([id number]) on 01/06/2025 1:10:26 AM Ethanol Status: Normal Collection Time: 01/05/25 6:32 PM Result Value Ref Range Ethanol Lvl <10 <=10 mg/dL Salicylate level Status: Abnormal Collection Time: 01/05/25 6:32 PM Result Value Ref Range Salicylate Lvl <5.0 (L) 15.0 - 30.0 mg/dL Acetaminophen level Status: Abnormal Collection Time: 01/05/25 6:32 PM Result Value Ref Range Acetaminophen Level <3 (L) 10 - 30 ug/mL CBC with automated diff Status: Abnormal Collection Time: 01/05/25 6:32 PM Result Value Ref Range WBC 7.1 4.2 - 9.1 K/??L RBC 3.13 (L) 4.63 - 6.08 M/??L Hemoglobin 11.2 (L) 13.7 - 17.5 GM/DL Hematocrit 31.9 (L) 40.1 - 51.0 % MCV 102 (H) 79 - 92 fL MCH 35.8 (H) 25.7 - 32.2 pg MCHC 35.1 32.3 - 36.5 GM/DL RDW 14.4 11.6 - 14.4 % Platelets 62 (L) 140 - 375 K/CU MM MPV 10.0 9.4 - 12.4 fL % Neutros 90 (H) 34 - 68 % % Lymphs 3 (L) 22 - 53 % % Monos 6 5 - 12 % % Eos 0 (L) 1 - 7 % % Baso 0 0 - 1 % NRBC Absolute <0.01 0 - 0.012 K/ul # Neutros 6.40 (H) 1.78 - 5.38 K/??L # Lymphs 0.23 (L) 1.32 - 3.57 K/??L # Monos 0.41 0.30 - 0.82 K/??L # Eos <0.03 (L) 0.04 - 0.54 K/ L # Baso <0.03 0.01 - 0.08 K/ L Immature Granulocytes-Relative 0.80 (H) 0.01 - 0.43 % # IG 0.06 (H) 0.00 - 0.03 K/uL Comprehensive metabolic panel Status: Abnormal Collection Time: 01/05/25 6:32 PM Result Value Ref Range Sodium 135 (L) 136 - 145 meq/L Potassium 4.1 3.4 - 5.1 meq/L Chloride 92 (L) 98 - 112 meq/L CO2 15 (L) 22 - 29 meq/L Calcium 9.0 8.4 - 10.2 mg/dL Glucose 133 (H) 74 - 100 mg/dL BUN 23.7 8.4 - 25.7 mg/dL Creatinine 1.37 (H) 0.72 - 1.25 mg/dL BUN/Creatinine 17 8 - 20 eGFR (mL/min/1.73m2) 59 (L) >=60 mL/min/1.73m2 Albumin 3.7 3.5 - 5.0 g/dL Alkaline Phosphatase 60 40 - 150 U/L ALT 82 (H) <=45 U/L AST 151 (H) 11 - 34 U/L Total Bilirubin 1.2 0.2 - 1.2 mg/dL Protein, Total 8.0 6.4 - 8.3 g/dL Globulin 4.3 (H) 2.5 - 4.1 g/dL Anion Gap 32 (H) 4 - 12 A/G Ratio 0.9 0.7 - 1.9 Osmolality Calc 276.0 mOsm/kg CBC Scan Status: Abnormal Collection Time: 01/05/25 6:32 PM Result Value Ref Range Platelet Estimate Decreased (A) Adequate RBC Morphology abnormal (A) Normal Anisocytosis 1+ Hypochromia 1+ ABO/RH Confirmation/Retype Status: None Collection Time: 01/05/25 6:32 PM Result Value Ref Range RETYPE A Positive Magnesium Status: Abnormal Collection Time: 01/05/25 6:32 PM Result Value Ref Range Magnesium 1.5 (L) 1.6 - 2.6 mg/dL Prepare Plateletpheresis: 2 Units Status: None (Preliminary result) Collection Time: 01/05/25 7:57 PM Result Value Ref Range Issue Date/Time [id number] Product Identification Platelets Product Code Q4521M62 Status Information TRANSFUSED Unit Number [id number] Blood Type 5100 Type and Screen Status: None Collection Time: 01/05/25 8:39 PM Result Value Ref Range ABO/Rh A Positive Antibody Screen Negative HISTCHK HIST CHECK PERFORMED PT/INR, PTT Status: Normal Collection Time: 01/05/25 8:39 PM Result Value Ref Range aPTT 27.0 22.0 - 32.0 seconds Protime 10.3 9.0 - 12.0 seconds INR 0.92 0.80 - 1.10 Hemoglobin and Hematocrit Status: Abnormal Collection Time: 01/05/25 9:47 PM Result Value Ref Range Hemoglobin 11.2 (L) 13.7 - 17.5 GM/DL Hematocrit 32.5 (L) 40.1 - 51.0 % Glucose, Nova Meter Status: Abnormal Collection Time: 01/05/25 11:11 PM Result Value Ref Range POC-GLUCOSE 151 (H) 70 - 110 mg/dL Coroner Forensic Technician [id number] CBC - Hemogram (-BKR) Status: Abnormal Collection Time: 01/06/25 1:35 AM Result Value Ref Range WBC 6.3 4.2 - 9.1 K/??L RBC 3.03 (L) 4.63 - 6.08 M/??L Hemoglobin 11.2 (L) 13.7 - 17.5 GM/DL Hematocrit 33.8 (L) 40.1 - 51.0 % MCV 112 (H) 79 - 92 fL MCH 37.0 (H) 25.7 - 32.2 pg MCHC 33.1 32.3 - 36.5 GM/DL RDW 15.0 (H) 11.6 - 14.4 % Platelets 102 (L) 140 - 375 K/CU MM MPV 9.5 9.4 - 12.4 fL Comprehensive Metabolic Panel Status: Abnormal Collection Time: 01/06/25 4:17 AM Result Value Ref Range Sodium 133 (L) 136 - 145 meq/L Potassium 3.6 3.4 - 5.1 meq/L Chloride 93 (L) 98 - 112 meq/L CO2 19 (L) 22 - 29 meq/L Calcium 8.4 8.4 - 10.2 mg/dL Glucose 149 (H) 74 - 100 mg/dL BUN 20.3 8.4 - 25.7 mg/dL Creatinine 1.38 (H) 0.72 - 1.25 mg/dL BUN/Creatinine 15 8 - 20 eGFR (mL/min/1.73m2) 59 (L) >=60 mL/min/1.73m2 Albumin 3.4 (L) 3.5 - 5.0 g/dL Alkaline Phosphatase 58 40 - 150 U/L ALT 157 (H) <=45 U/L AST 336 (H) 11 - 34 U/L Total Bilirubin 1.1 0.2 - 1.2 mg/dL Protein, Total 7.3 6.4 - 8.3 g/dL Globulin 3.9 2.5 - 4.1 g/dL Anion Gap 25 (H) 4 - 12 A/G Ratio 0.9 0.7 - 1.9 Osmolality Calc 271.9 mOsm/kg CBC with automated diff Status: Abnormal Collection Time: 01/06/25 4:17 AM Result Value Ref Range WBC 6.4 4.2 - 9.1 K/??L RBC 2.91 (L) 4.63 - 6.08 M/??L Hemoglobin 10.4 (L) 13.7 - 17.5 GM/DL Hematocrit 30.7 (L) 40.1 - 51.0 % MCV 106 (H) 79 - 92 fL MCH 35.7 (H) 25.7 - 32.2 pg MCHC 33.9 32.3 - 36.5 GM/DL RDW 14.5 (H) 11.6 - 14.4 % Platelets 107 (L) 140 - 375 K/CU MM MPV 9.4 9.4 - 12.4 fL % Neutros 90 (H) 34 - 68 % % Lymphs 4 (L) 22 - 53 % % Monos 6 5 - 12 % % Eos 0 (L) 1 - 7 % % Baso 0 0 - 1 % NRBC Absolute <0.01 0 - 0.012 K/ul # Neutros 5.72 (H) 1.78 - 5.38 K/??L # Lymphs 0.23 (L) 1.32 - 3.57 K/??L # Monos 0.36 0.30 - 0.82 K/??L # Eos <0.03 (L) 0.04 - 0.54 K/ L # Baso <0.03 0.01 - 0.08 K/ L Immature Granulocytes-Relative 0.80 (H) 0.01 - 0.43 % # IG 0.05 (H) 0.00 - 0.03 K/uL Magnesium Status: Normal Collection Time: 01/06/25 4:17 AM Result Value Ref Range Magnesium 2.5 1.6 - 2.6 mg/dL Phosphorus Status: Abnormal Collection Time: 01/06/25 4:17 AM Result Value Ref Range Phosphorus 2.0 (L) 2.5 - 4.5 mg/dL Lactic Acid with reflex (SJ) Status: Normal Collection Time: 01/06/25 4:17 AM Result Value Ref Range Lactic Acid Level (mmol/L) 0.7 0.5 - 2.2 mmol/L Creatine Kinase (CK) Status: Abnormal Collection Time: 01/06/25 4:17 AM Result Value Ref Range Total CK 2,483 (H) 30 - 200 U/L Glucose, Nova Meter Status: Abnormal Collection Time: 01/06/25 11:18 AM Result Value Ref Range POC-GLUCOSE 142 (H) 70 - 110 mg/dL Coroner Forensic Technician [id number] Hemoglobin and Hematocrit Status: Abnormal Collection Time: 01/06/25 12:54 PM Result Value Ref Range Hemoglobin 9.5 (L) 13.7 - 17.5 GM/DL Hematocrit 27.6 (L) 40.1 - 51.0 % Radiology Radiology Results (last day) Procedure Component Value Units Date/Time CT brain without IV contrast [[id number]] Collected: 01/06/2540 Order Status: Completed Updated: 01/06/25934 Narrative: HEAD CT HISTORY: Subdural hemorrhage follow-up. COMPARISON: One day prior. TECHNIQUE: Multiple axial CT images were performed from the foramen magnum to the vertex without enhancement. This study was performed with techniques to keep radiation doses as low as reasonably achievable, (ALARA). Individualized dose reduction techniques using automated exposure control or adjustment of mA and/or kV according to the patient size were employed. FINDINGS: Again seen is high attenuation extra-axial fluid collection overlying the right frontal and parietal lobes. This is similar to the prior study. This measures approximately 4 mm in transverse dimension. The hemorrhage extends posteriorly and inferiorly over the tentorium. No intra-axial hemorrhage is identified. Impression: Stable appearance of hemorrhage overlying the right frontal and parietal lobes and extending over the tentorium consistent with subdural hemorrhage. Images reviewed, interpreted, and dictated by Dr. Ricky Monroe. Transcribed by Robert Amaya PA-C. CT brain without IV contrast [[id number]] Collected: 01/05/251919 Order Status: Completed Updated: 01/05/251926 Narrative: CT SCAN OF THE HEAD WITHOUT CONTRAST INDICATION: Alcohol problem. TECHNIQUE: Multiple axial CT images were performed from the foramen magnum to the vertex without contrast. Coronal reconstruction images were obtained from the axial data. This study was performed with techniques to keep radiation doses as low as reasonably achievable (ALARA). Individualized dose reduction techniques using automated exposure control or adjustment of mA and/or KV according to the patient size were employed. COMPARISON: None. FINDINGS: There is no midline shift or hydrocephalus. There is a mixed density right subdural hemorrhage with an acute component. The acute component measures 5 mm on series 2, image 23. This extends along the right tentorium. There may also be a small extra-axial component along the lateral aspect of the right cerebellum. There is also increased density along the left tentorium and a small left subdural hemorrhage is suspected.. No acute soft tissue abnormality. No acute osseous abnormalities are present. Impression: 1. Mixed density right subdural hemorrhage with an acute component measuring 5 mm. Short follow-up is recommended. 2. Probable small hemorrhage along the right cerebellum and small amount of hemorrhage layering along the left tentorium. This was directly communicated to Lana on 01/05/2025 at 7:25 PM. Images reviewed, interpreted, and dictated by Flor Cisneros MD Microbiology: Microbiology Results (last 7 days) No results found for the last 168 hours. ASSESSMENT: Pulmonary Consulted for critical care management Currently on room air Never smoker Neuro CT brain - mixed density right subdural hemorrhage with an acute component measuring 5.5 mm and probable small hemorrhage along the right cerebellum and left tentorium Awake, alert Cardiac Hemodynamically stable History of HTN Heme Thrombocytopenia Renal Acute kidney injury, baseline unknown Hypomagnesemia ENT Left eye conjunctivitis GI Transaminitis General ETOH abuse PLAN: Supplemental O2 for goal sat 92-96% - currently on O at 2 LPM BABS on O2 2 L with sleep--> add CPAP level 8 at night S/p falls CT head 01/05: right subdural hemorrhage with an acute component measuring 5.5 mm and probable smallhemorrhage along the right cerebellum and left tentorium Awake, alert Reported Headache and mild blurry vision CT head 01/06 showed stable hemorrhage overlying the right Frontal and parietal lobes and extending over the tentorium consistent with subdural hemorrhage. Hemodynamics: keep MAP > 65 mmHg Thrombocytopenia: likely due to alcoholism Platelet was 62K S/P 2 u of platelet Neurosurgery following ETOH delirium CIWA prn ativan Ongoing tremors ,tachycardia--> added ativan 2mg q4 hrs Rhabdomyolysis CK 2483 Add NS 80cc/hr RUTHIE : likely pre-renal.Cr 1.38 High risk of refeeding syndrome Replace phosphorus Replace magnesium NPO: start oral diet if OK per Neurosurgery Hyponatremia: Monitor Na level-Na 133 Prophylaxis: Protonix, SCDs Anticoagulation on hold secondary to SDH I have personally evaluated the patient; history and review of systems, physical examination, laboratory studies and radiology data. I have actively directed the medical care, formulated diagnosis and plan and discussed it with our team. Chest imaging reviewed independent of the radiologist report. Prognosis: Guarded. High risk of Morbidity and Mortality Full code Disposition intensive care unit Discussed in a multidisciplinary team rounds in the ICU Critically ill, complex case, requires frequent assessments and high level of decision making. Critical care time without procedures is 34 min Minna Osuna MD * DAVID Vaughn - 01/06/2025 10:23 AM EDTSummary: KIMBERLY Progress Note Pt's PCP is Ni Webster [phone] Emergency contact is Yahaira Cabrera-aunt [phone] LNOK is mother Jie Douglas [phone] Pt's father is still alive, but in a SNF & also has cognitive impariment Pt wants to name his aunt Yahaira as HCS so Production Shift Supervisorarnaldo Palacio will complete an Advance Directive, whichwill then make Yahaira AUGUSTIN CM will complete initial assessment & continue to follow DAVDI Valerio, SURFBOARD MAKER * Whitney Moran MD - 01/06/2025 9:23 AM EDT [facility] PROGRESS NOTE: Patient: Prosper Douglas Date: 01/06/2025 ASSESSMENT and PLAN: Prosper Douglas is a 59 y.o. male with PMHx of depression, alcohol dependence, and malnutritionwith iron deficiency anemia who presented on 01/05/2025 after a falls with ORTIZ and other complaints. Workup revealed. DIAGNOSIS: Right SDH-Right small cerebellar hemorrhage and small amount of hemorrhage layering along the left tentorium. Thrombocytopenia Etoh abuse Abnormal transaminases likely related to underlying excessive alcohol use Hypomagnesemia, improved RUTHIE, monitor, baseline unknown Left eye conjunctivitis. PLAN: - Admit to the ICU with Q1H neuro checks - NPO except meds. - D5 1/2NS with mag sulf, MVI, folic acid and thiamine 125 ml/hr x 3 days. - NSG consulted. - H&H q6h, AM labs. - UDS pending - Platelet transfusion x 2 units ordered by ED. Would prefer target > 75-100k, however > 50k may be acceptable if his hemorrhage remains stable on repeat imaging - Stat coag panel. - PCC if INR > 1.5 - IV Vit K ordered - Repeat CT Head at 0500 tomorrow. If neurologic exam declines before then, obtain stat CTH and notify me immediately - Alcohol withdrawal management w CIWA scoring and PRN benzos - seizure precautions. - erythromycin ointment to left eye q4h x 7 days. - Hydralazine IV prn for HTN. 01/06 please note this is my first visit with this patient, patient seen evaluated and examined thismorning, moving all 4 extremities, discussed with the nursing staff when I saw this patient around 6:30 in the morning, he is on rally pack for alcohol-related issues, magnesium has been successfullyreplaced, low-grade temperature noted we will continue to monitor closely, coupon and bond collection clerk on board, neurosurgery following, nonsurgical management thus far for brain bleed, patient's status post platelet transfusion will continue to monitor platelets hemoglobin and hematocrit and address any deficiencies as needed, continue other subset of home meds as indicated continue to monitor for alcohol withdrawal like symptoms, high risk patient for poor outcome requiring ICU level of care, plan discussed with the patient discussed with the nursing in CCU, I have spent 31 minutes of critical care time onthis case today, Complex medical issues with acute on chronic multiple co morbidities requiring multidisciplinary management. 01/07 01/08 VTE Prophylaxis: Mechanical VTE prophylaxis CODE STATUS : Same as listed above on Epic Facesheet Previous Living Condition: Home Expected Disposition: To be Determined Expected Discharge Date: To be determined pending rate of clinical recovery, general progress, and response to therapy with evolving data and workup Subjective Patient seen and evaluated today, for further details please refer above in the plan section Objective Vitals: Temp: [98.5 ??F (36.9 ??C)-100.1 ??F (37.8 ??C)] 100.1 ??F (37.8 ??C) Pulse: [87-125] 91 Resp: [3-24] 13 BP: (120-168)/(66-99) 138/80 Intake/Output: Intake/Output Summary (Last 24 hours) at 01/06/2025 0923 Last data filed at 01/06/2025 0400 Gross per 24 hour Intake 2137.98 ml Output 200 ml Net 1937.98 ml Physical Exam: General: No significant acute distress HEENT: Generally negative Neck: No JVD noted CVS: S1, S2, no S3 or S4 Lungs: Equal air entry symmetrical chest expansion GI: Soft largely nondistended Neurological: Nonfocal generally intact Musculoskeletal: Generally unremarkable Skin: Without any obvious rashes on the exposed surfaces Medications: Scheduled Meds: dextrose 5 %-sodium chloride 0.45 % (D5-1/2NS) 1,000 mL with magnesium sulfate 2 g, MVI, adult 10 mL, folic acid 1 mg, thiamine 100 mg infusion intravenous Daily New Bag at 01/06/25 0835 erythromycin 0.5 inch left eye Q4H 1 g at 01/06/25 0835 pantoprazole 40 mg oral Daily 40 mg at 01/06/25 0835 potassium phosphate 15 mmol intravenous Once 15 mmol at 01/06/25 0544 Continuous Infusions: Current Facility-Administered Medications Medication Dose Route Frequency Provider Last Rate Last Admin acetaminophen (TYLENOL) tablet 1,000 mg 1,000 mg oral Q6H PRN Jarke Connor MD cloNIDine (CATAPRES) tablet 0.1 mg 0.1 mg oral Q4H PRN Jarek Connor MD dextrose 5 %-sodium chloride 0.45 % (D5-1/2NS) 1,000 mL with magnesium sulfate 2 g, MVI, adult 10 mL, folic acid 1 mg, thiamine 100 mg infusion intravenous Daily Jarek Connor MD 125 mL/hr at 01/06/25 0835 New Bag at 01/06/25 0835 diazePAM (VALIUM) injection 10 mg 10 mg intravenous Q10 Min PRN Jarek Connor MD diazePAM (VALIUM) injection 10 mg 10 mg intravenous Q5 Min PRN Jarek Connor MD diazePAM (VALIUM) injection 5 mg 5 mg intravenous Q5 Min PRN Jarek Connor MD 5 mg at 01/06/25 0139 diazePAM (VALIUM) injection 5 mg 5 mg intravenous Q10 Min PRN Jarek Connor MD 5 mg at 01/06/25 0457 diazePAM (VALIUM) injection 7.5 mg 7.5 mg intravenous Q10 Min PRN Jarek Connor MD 7.5 mg at 01/05/25 2357 docusate sodium (COLACE) capsule 100 mg 100 mg oral BID PRN Jarek Connor MD erythromycin 5 mg/gram (0.5 %) ophthalmic ointment 1 g 0.5 inch left eye Q4H Jarek Connor MD 1 g at 01/06/25 0835 hydrALAZINE (APRESOLINE) injection 10 mg 10 mg intravenous Q4H PRN Jarek Connor MD LORazepam (ATIVAN) tablet 1 mg 1 mg oral Q8H PRN Jarek Connor MD magnesium sulfate IVPB 2 g in sterile water 50 mL (premix) 2 g intravenous Daily PRN Jarek Connor MD magnesium sulfate IVPB 2 g in sterile water 50 mL (premix) 2 g intravenous BID PRN Jarek Connor MD melatonin tablet 5 mg 5 mg oral Every Night PRN Jarek Connor MD morphine injection 2 mg 2 mg intravenous Q4H PRN Jarek Connor MD naloxone (NARCAN) injection 0.2 mg 0.2 mg intravenous Q2 Min PRN Jarek Connor MD ondansetron (ZOFRAN-ODT) disintegrating tablet 4 mg 4 mg oral Q8H PRN Jarek Connor MD Or ondansetron (ZOFRAN) injection 4 mg 4 mg intravenous Q4H PRN Jarek Connor MD pantoprazole (PROTONIX) EC tablet 40 mg 40 mg oral Daily Jarek Connor MD 40 mg at 01/06/25 0835 potassium chloride (KLOR-CON) ER tablet 40 mEq 40 mEq oral 4x Daily PRN Jarek Connor MD potassium chloride IVPB 10 mEq in 100 mL sterile water (premix) 10 mEq intravenous Q1H PRN Jarek Connor MD potassium phosphate 15 mmol in sodium chloride 0.9 % (NS) 250 mL infusion 15 mmol intravenous Once Ciarra Reed APRN 50 mL/hr at 01/06/25 0544 15 mmol at 01/06/25 0544 PRN Meds: @MEDSPRN@ Labs: Results for orders placed or performed during the hospital encounter of 01/05/25 (from the past 24 hours) ECG 12 lead Status: None Collection Time: 01/05/25 6:11 PM Result Value Ref Range VENTRICULAR RATE EKG/MIN 108 BPM ATRIAL RATE (MCT) 108 BPM MA Interval 121 ms QRS-INTERVAL (MSEC) 83 ms QT Interval 342 ms QTC Interval 458 ms P [place] 45 degrees R AXIS (MCT) 73 degrees T Wave [place] 64 degrees [place] Diagnosis Sinus tachycardia Baseline artifact No previous ECGs available Confirmed by Ayse MENDOZA STEVE ([id number]) on 01/06/2025 1:10:26 AM Ethanol Status: Normal Collection Time: 01/05/25 6:32 PM Result Value Ref Range Ethanol Lvl <10 <=10 mg/dL Salicylate level Status: Abnormal Collection Time: 01/05/25 6:32 PM Result Value Ref Range Salicylate Lvl <5.0 (L) 15.0 - 30.0 mg/dL Acetaminophen level Status: Abnormal Collection Time: 01/05/25 6:32 PM Result Value Ref Range Acetaminophen Level <3 (L) 10 - 30 ug/mL CBC with automated diff Status: Abnormal Collection Time: 01/05/25 6:32 PM Result Value Ref Range WBC 7.1 4.2 - 9.1 K/??L RBC 3.13 (L) 4.63 - 6.08 M/??L Hemoglobin 11.2 (L) 13.7 - 17.5 GM/DL Hematocrit 31.9 (L) 40.1 - 51.0 % MCV 102 (H) 79 - 92 fL MCH 35.8 (H) 25.7 - 32.2 pg MCHC 35.1 32.3 - 36.5 GM/DL RDW 14.4 11.6 - 14.4 % Platelets 62 (L) 140 - 375 K/CU MM MPV 10.0 9.4 - 12.4 fL % Neutros 90 (H) 34 - 68 % % Lymphs 3 (L) 22 - 53 % % Monos 6 5 - 12 % % Eos 0 (L) 1 - 7 % % Baso 0 0 - 1 % NRBC Absolute <0.01 0 - 0.012 K/ul # Neutros 6.40 (H) 1.78 - 5.38 K/??L # Lymphs 0.23 (L) 1.32 - 3.57 K/??L # Monos 0.41 0.30 - 0.82 K/??L # Eos <0.03 (L) 0.04 - 0.54 K/ L # Baso <0.03 0.01 - 0.08 K/ L Immature Granulocytes-Relative 0.80 (H) 0.01 - 0.43 % # IG 0.06 (H) 0.00 - 0.03 K/uL Comprehensive metabolic panel Status: Abnormal Collection Time: 01/05/25 6:32 PM Result Value Ref Range Sodium 135 (L) 136 - 145 meq/L Potassium 4.1 3.4 - 5.1 meq/L Chloride 92 (L) 98 - 112 meq/L CO2 15 (L) 22 - 29 meq/L Calcium 9.0 8.4 - 10.2 mg/dL Glucose 133 (H) 74 - 100 mg/dL BUN 23.7 8.4 - 25.7 mg/dL Creatinine 1.37 (H) 0.72 - 1.25 mg/dL BUN/Creatinine 17 8 - 20 eGFR (mL/min/1.73m2) 59 (L) >=60 mL/min/1.73m2 Albumin 3.7 3.5 - 5.0 g/dL Alkaline Phosphatase 60 40 - 150 U/L ALT 82 (H) <=45 U/L AST 151 (H) 11 - 34 U/L Total Bilirubin 1.2 0.2 - 1.2 mg/dL Protein, Total 8.0 6.4 - 8.3 g/dL Globulin 4.3 (H) 2.5 - 4.1 g/dL Anion Gap 32 (H) 4 - 12 A/G Ratio 0.9 0.7 - 1.9 Osmolality Calc 276.0 mOsm/kg CBC Scan Status: Abnormal Collection Time: 01/05/25 6:32 PM Result Value Ref Range Platelet Estimate Decreased (A) Adequate RBC Morphology abnormal (A) Normal Anisocytosis 1+ Hypochromia 1+ ABO/RH Confirmation/Retype Status: None Collection Time: 01/05/25 6:32 PM Result Value Ref Range RETYPE A Positive Magnesium Status: Abnormal Collection Time: 01/05/25 6:32 PM Result Value Ref Range Magnesium 1.5 (L) 1.6 - 2.6 mg/dL Prepare Plateletpheresis: 2 Units Status: None (Preliminary result) Collection Time: 01/05/25 7:57 PM Result Value Ref Range Issue Date/Time [id number] Product Identification Platelets Product Code A1514M38 Status Information TRANSFUSED Unit Number [id number] Blood Type 5100 Type and Screen Status: None Collection Time: 01/05/25 8:39 PM Result Value Ref Range ABO/Rh A Positive Antibody Screen Negative HISTCHK HIST CHECK PERFORMED PT/INR, PTT Status: Normal Collection Time: 01/05/25 8:39 PM Result Value Ref Range aPTT 27.0 22.0 - 32.0 seconds Protime 10.3 9.0 - 12.0 seconds INR 0.92 0.80 - 1.10 Hemoglobin and Hematocrit Status: Abnormal Collection Time: 01/05/25 9:47 PM Result Value Ref Range Hemoglobin 11.2 (L) 13.7 - 17.5 GM/DL Hematocrit 32.5 (L) 40.1 - 51.0 % Glucose, Nova Meter Status: Abnormal Collection Time: 01/05/25 11:11 PM Result Value Ref Range POC-GLUCOSE 151 (H) 70 - 110 mg/dL Coroner Forensic Technician [id number] CBC - Hemogram (SJ-BKR) Status: Abnormal Collection Time: 01/06/25 1:35 AM Result Value Ref Range WBC 6.3 4.2 - 9.1 K/??L RBC 3.03 (L) 4.63 - 6.08 M/??L Hemoglobin 11.2 (L) 13.7 - 17.5 GM/DL Hematocrit 33.8 (L) 40.1 - 51.0 % MCV 112 (H) 79 - 92 fL MCH 37.0 (H) 25.7 - 32.2 pg MCHC 33.1 32.3 - 36.5 GM/DL RDW 15.0 (H) 11.6 - 14.4 % Platelets 102 (L) 140 - 375 K/CU MM MPV 9.5 9.4 - 12.4 fL Comprehensive Metabolic Panel Status: Abnormal Collection Time: 01/06/25 4:17 AM Result Value Ref Range Sodium 133 (L) 136 - 145 meq/L Potassium 3.6 3.4 - 5.1 meq/L Chloride 93 (L) 98 - 112 meq/L CO2 19 (L) 22 - 29 meq/L Calcium 8.4 8.4 - 10.2 mg/dL Glucose 149 (H) 74 - 100 mg/dL BUN 20.3 8.4 - 25.7 mg/dL Creatinine 1.38 (H) 0.72 - 1.25 mg/dL BUN/Creatinine 15 8 - 20 eGFR (mL/min/1.73m2) 59 (L) >=60 mL/min/1.73m2 Albumin 3.4 (L) 3.5 - 5.0 g/dL Alkaline Phosphatase 58 40 - 150 U/L ALT 157 (H) <=45 U/L AST 336 (H) 11 - 34 U/L Total Bilirubin 1.1 0.2 - 1.2 mg/dL Protein, Total 7.3 6.4 - 8.3 g/dL Globulin 3.9 2.5 - 4.1 g/dL Anion Gap 25 (H) 4 - 12 A/G Ratio 0.9 0.7 - 1.9 Osmolality Calc 271.9 mOsm/kg CBC with automated diff Status: Abnormal Collection Time: 01/06/25 4:17 AM Result Value Ref Range WBC 6.4 4.2 - 9.1 K/??L RBC 2.91 (L) 4.63 - 6.08 M/??L Hemoglobin 10.4 (L) 13.7 - 17.5 GM/DL Hematocrit 30.7 (L) 40.1 - 51.0 % MCV 106 (H) 79 - 92 fL MCH 35.7 (H) 25.7 - 32.2 pg MCHC 33.9 32.3 - 36.5 GM/DL RDW 14.5 (H) 11.6 - 14.4 % Platelets 107 (L) 140 - 375 K/CU MM MPV 9.4 9.4 - 12.4 fL % Neutros 90 (H) 34 - 68 % % Lymphs 4 (L) 22 - 53 % % Monos 6 5 - 12 % % Eos 0 (L) 1 - 7 % % Baso 0 0 - 1 % NRBC Absolute <0.01 0 - 0.012 K/ul # Neutros 5.72 (H) 1.78 - 5.38 K/??L # Lymphs 0.23 (L) 1.32 - 3.57 K/??L # Monos 0.36 0.30 - 0.82 K/??L # Eos <0.03 (L) 0.04 - 0.54 K/ L # Baso <0.03 0.01 - 0.08 K/ L Immature Granulocytes-Relative 0.80 (H) 0.01 - 0.43 % # IG 0.05 (H) 0.00 - 0.03 K/uL Magnesium Status: Normal Collection Time: 01/06/25 4:17 AM Result Value Ref Range Magnesium 2.5 1.6 - 2.6 mg/dL Phosphorus Status: Abnormal Collection Time: 01/06/25 4:17 AM Result Value Ref Range Phosphorus 2.0 (L) 2.5 - 4.5 mg/dL Lactic Acid with reflex (SJ) Status: Normal Collection Time: 01/06/25 4:17 AM Result Value Ref Range Lactic Acid Level (mmol/L) 0.7 0.5 - 2.2 mmol/L Radiology: Radiology Results (last 3 days) Procedure Component Value Units Date/Time CT brain without IV contrast - Preliminary [[id number]] Collected: 01/06/25839 Order Status: Completed Updated: 01/06/25841 This result has not been signed. Information might be incomplete. Narrative: HEAD CT HISTORY: Subdural hemorrhage follow-up. COMPARISON: One day prior. TECHNIQUE: Multiple axial CT images were performed from the foramen magnum to the vertex without enhancement. This study was performed with techniques to keep radiation doses as low as reasonably achievable, (ALARA). Individualized dose reduction techniques using automated exposure control or adjustment of mA and/or kV according to the patient size were employed. FINDINGS: Again seen is high attenuation extra-axial fluid collection overlying the right frontal and parietal lobes. This is similar to the prior study. This measures approximately 4 mm in transverse dimension. The hemorrhage extends posteriorly and inferiorly over the tentorium. No intra-axial hemorrhage is identified. Impression: Stable appearance of hemorrhage overlying the right frontal and parietal lobes and extending over the tentorium consistent with subdural hemorrhage. Images reviewed, interpreted, and dictated by Dr. Ricky Monroe. Transcribed by Robert Amaya PA-C. CT brain without IV contrast [[id number]] Collected: 01/05/251919 Order Status: Completed Updated: 01/05/251926 Narrative: CT SCAN OF THE HEAD WITHOUT CONTRAST INDICATION: Alcohol problem. TECHNIQUE: Multiple axial CT images were performed from the foramen magnum to the vertex without contrast. Coronal reconstruction images were obtained from the axial data. This study was performed with techniques to keep radiation doses as low as reasonably achievable (ALARA). Individualized dose reduction techniques using automated exposure control or adjustment of mA and/or KV according to the patient size were employed. COMPARISON: None. FINDINGS: There is no midline shift or hydrocephalus. There is a mixed density right subdural hemorrhage with an acute component. The acute component measures 5 mm on series 2, image 23. This extends along the right tentorium. There may also be a small extra-axial component along the lateral aspect of the right cerebellum. There is also increased density along the left tentorium and a small left subdural hemorrhage is suspected.. No acute soft tissue abnormality. No acute osseous abnormalities are present. Impression: 1. Mixed density right subdural hemorrhage with an acute component measuring 5 mm. Short follow-up is recommended. 2. Probable small hemorrhage along the right cerebellum and small amount of hemorrhage layering along the left tentorium. This was directly communicated to Lana on 01/05/2025 at 7:25 PM. Images reviewed, interpreted, and dictated by Flor Cisneros MD Signed: 01/06/2025 documented in this encounter H&P Notes * Jarek Connor MD - 01/05/2025 8:46 PM EDT [facility] ADMITTING H&P: PCP: [facility] Date of Admission: 01/05/2025 ASSESSMENT and PLAN: Prosper Douglas is a 59 y.o. male with PMHx of depression, alcohol dependence, and malnutritionwith iron deficiency anemia who presented on 01/05/2025 after a falls with ORTIZ and other complaints. Workup revealed. DIAGNOSIS: Right SDH Right small cerebellar hemorrhage and small amount of hemorrhage layering along the left tentorium. Thrombocytopenia Etoh abuse Transaminitis RUTHIE Left eye conjunctivitis. DVT Prophylaxis: SCDs CODE STATUS : FULL PLAN: - Admit to the ICU with Q1H neuro checks - NPO except meds. - D5 1/2NS with mag sulf, MVI, folic acid and thiamine 125 ml/hr x 3 days. - NSG consulted. - H&H q6h, AM labs. - UDS pending - Platelet transfusion x 2 units ordered by ED. Would prefer target > 75-100k, however > 50k may be acceptable if his hemorrhage remains stable on repeat imaging - Stat coag panel. - PCC if INR > 1.5 - IV Vit K ordered - Repeat CT Head at 0500 tomorrow. If neurologic exam declines before then, obtain stat CTH and notify me immediately - Alcohol withdrawal management w CIWA scoring and PRN benzos - seizure precautions. - erythromycin ointment to left eye q4h x 7 days. - Hydralazine IV prn for HTN. Previous Living Condition: home Expected Disposition: TBD Expected Discharge Date: TBD Chief Complaints Falls and ORTIZ, etoh abuse History Of Present Illness Prosper Douglas is a 59 y.o. male with PMHx of depression, alcohol dependence, and malnutritionwith iron deficiency anemia presenting with multiple complaints including increasing falls for the past several months. He has been admitted in the past for generalized weakness and EtOH withdrawal seizure. I ER work up: WBC 7.1, Hgb 11.2, Hct 31.9, PLT 62 (no previous labs for comparison). CMP significant for Sodium 135, BUN 23, Creat 1.37, AST 151, ALT 82. Acetaminophen and Tylenol levels neg. EtOH neg. UDS is pending. EKG sinus tachy. CT Head: 1. Mixed density right subdural hemorrhage with an acute component measuring 5 mm. Short follow-up is recommended. 2. Probable small hemorrhage along the right cerebellum and small amount of hemorrhage layering along the left tentorium. ER interventions: Erythromycin ophthalmic ointment for left eye Ativan 1 mg IV once Vit K NS bolus Transfusing 2 units platelets ER contacted NSG who recommended admission to ICU w q1h neuro checks, platelet transfusion, Would prefer target > 75-100k, however > 50k may be acceptable if his hemorrhage remains stable on repeat imaging - Stat coag panel. Discussed with RN. - PCC if INR > 1.5 - IV Vit K ordered - Repeat CTH at 0500 tomorrow. If neurologic exam declines before then, obtain stat CTH and notify me immediately - Alcohol withdrawal management per medicine team Review of Systems 10 point review of systems performed and is negative unless noted and documented in HPI and past medical history. Past Medical History Past Medical History: Diagnosis Date Alcohol abuse GERD (gastroesophageal reflux disease) Hypertension Past Surgical History: Procedure Laterality Date ESOPHAGECTOMY Social History reports that he has never smoked. He has never used smokeless tobacco. He reports current alcohol use. He reports that he does not use drugs. Family History Reviewed and noncontributory. Allergies Patient has no known allergies. Home Medications No current outpatient medications Physical Exam Vitals: 01/05/252001 BP: (!) 156/95 Pulse: 96 Resp: 19 Temp: SpO2: 97% General: Looks comfortable and no distress HEENT: Head atraumatic, normal cephalic. Left conjunctiva injected with matting and yellow discharge. Bruising along right lower eye Neck: Supple. No JVD noted CVS: Tachycardic, reg rhythm no murmur. Lungs: Bilateral air entry. Normal chest expansion. Clear to auscultation bilaterally. Abdomen: Soft. Nontender. Positive bowel sounds. 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 Left upper extremity: 1/5 Right upper extremity: 4/5, Lower extremities: 2/5 No other gross neurological focal deficits. Musculoskeletal: Range of motion is normal. No pedal edema. Skin: Warm and dry on exposed surface. Psychiatry: Mood appropriate Labs & Imaging Recent Results (from the past 24 hours) ECG 12 lead Collection Time: 01/05/25 6:11 PM Result Value Ref Range VENTRICULAR RATE EKG/MIN 108 BPM ATRIAL RATE (MCT) 108 BPM MA Interval 121 ms QRS-INTERVAL (MSEC) 83 ms QT Interval 342 ms QTC Interval 458 ms P [place] 45 degrees R AXIS (MCT) 73 degrees T Wave [place] 64 degrees [place] Diagnosis Sinus tachycardia Otherwise normal ECG No previous ECGs available Ethanol Collection Time: 01/05/25 6:32 PM Result Value Ref Range Ethanol Lvl <10 <=10 mg/dL Salicylate level Collection Time: 01/05/25 6:32 PM Result Value Ref Range Salicylate Lvl <5.0 (L) 15.0 - 30.0 mg/dL Acetaminophen level Collection Time: 01/05/25 6:32 PM Result Value Ref Range Acetaminophen Level <3 (L) 10 - 30 ug/mL CBC with automated diff Collection Time: 01/05/25 6:32 PM Result Value Ref Range WBC 7.1 4.2 - 9.1 K/??L RBC 3.13 (L) 4.63 - 6.08 M/??L Hemoglobin 11.2 (L) 13.7 - 17.5 GM/DL Hematocrit 31.9 (L) 40.1 - 51.0 % MCV 102 (H) 79 - 92 fL MCH 35.8 (H) 25.7 - 32.2 pg MCHC 35.1 32.3 - 36.5 GM/DL RDW 14.4 11.6 - 14.4 % Platelets 62 (L) 140 - 375 K/CU MM MPV 10.0 9.4 - 12.4 fL % Neutros 90 (H) 34 - 68 % % Lymphs 3 (L) 22 - 53 % % Monos 6 5 - 12 % % Eos 0 (L) 1 - 7 % % Baso 0 0 - 1 % NRBC Absolute <0.01 0 - 0.012 K/ul # Neutros 6.40 (H) 1.78 - 5.38 K/??L # Lymphs 0.23 (L) 1.32 - 3.57 K/??L # Monos 0.41 0.30 - 0.82 K/??L # Eos <0.03 (L) 0.04 - 0.54 K/ L # Baso <0.03 0.01 - 0.08 K/ L Immature Granulocytes-Relative 0.80 (H) 0.01 - 0.43 % # IG 0.06 (H) 0.00 - 0.03 K/uL Comprehensive metabolic panel Collection Time: 01/05/25 6:32 PM Result Value Ref Range Sodium 135 (L) 136 - 145 meq/L Potassium 4.1 3.4 - 5.1 meq/L Chloride 92 (L) 98 - 112 meq/L CO2 15 (L) 22 - 29 meq/L Calcium 9.0 8.4 - 10.2 mg/dL Glucose 133 (H) 74 - 100 mg/dL BUN 23.7 8.4 - 25.7 mg/dL Creatinine 1.37 (H) 0.72 - 1.25 mg/dL BUN/Creatinine 17 8 - 20 eGFR (mL/min/1.73m2) 59 (L) >=60 mL/min/1.73m2 Albumin 3.7 3.5 - 5.0 g/dL Alkaline Phosphatase 60 40 - 150 U/L ALT 82 (H) <=45 U/L AST 151 (H) 11 - 34 U/L Total Bilirubin 1.2 0.2 - 1.2 mg/dL Protein, Total 8.0 6.4 - 8.3 g/dL Globulin 4.3 (H) 2.5 - 4.1 g/dL Anion Gap 32 (H) 4 - 12 A/G Ratio 0.9 0.7 - 1.9 Osmolality Calc 276.0 mOsm/kg CBC Scan Collection Time: 01/05/25 6:32 PM Result Value Ref Range Platelet Estimate Decreased (A) Adequate RBC Morphology abnormal (A) Normal Anisocytosis 1+ Hypochromia 1+ ABO/RH Confirmation/Retype Collection Time: 01/05/25 6:32 PM Result Value Ref Range RETYPE A Positive CT brain without IV contrast Result Date: 01/05/2025 CT SCAN OF THE HEAD WITHOUT CONTRAST INDICATION: Alcohol problem. TECHNIQUE: Multiple axial CT images were performed from the foramen magnum to the vertex without contrast. Coronal reconstruction images were obtained from the axial data. This study was performed with techniques to keep radiation doses as low as reasonably achievable (ALARA). Individualized dose reduction techniques using automated exposure control or adjustment of mA and/or KV according to the patient size were employed. COMPARISON: None. FINDINGS: There is no midline shift or hydrocephalus. There is a mixed density right subdural hemorrhage with an acute component. The acute component measures 5 mm on series 2, image 23. Th is extends along the right tentorium. There may also be a small extra-axial component along the lateral aspect of the right cerebellum. There is also increased density along the left tentorium and a small left subdural hemorrhage is suspected.. No acute soft tissue abnormality. No acute osseous abnormalities are present. 1. Mixed density right subdural hemorrhage with an acute component measuring 5 mm. Short follow-up is recommended. 2. Probable small hemorrhage along the right cerebellum and small amount of hemorrhage layering along the left tentorium. This was directly communicated to Lana on 01/05/2025 at 7:25 PM. Images reviewed, interpreted, and dictated by Flor Cisneros MD This patient is expected to need 2 midnights or greater length of stay due to medical issues and acute problems mentioned above . Electronically signed by: Jarek Connor MD, 01/05/2025 at 8:46 PM EDT documented in this encounter Consult Notes * Cherelle James, MS, RD, LD - 01/12/2025 9:[address] [facility] NUTRITION ASSESSMENT [facility] Nutrition Assessment The patient is a 59 y.o. male presenting with left eye discharge, multiple falls, and a headache. Present on Admission: SDH (subdural hematoma) (HCC) (Admitting Diagnoses) Nutrition Evaluation Type: Initial Assessment Reason for Evaluation: LOS Subjective Comments: 01/12: Pt on heart healthy diet, poor-good appetite per nsg, no intakes recorded. Weight history is varied, question accuracy. Last weight from [facility] admission 03/26/24 was 104#, pt currently 135#. Noted severe acute PCM diagnosis from [facility] admission, will assess as able. Per MD, pt is malnourished with iron deficiency anemia, requested nutrition supplement. Pt had vanilla Boost at previous admission, RD to order TID. Suspect moderate chronic PCM. Past Medical/Surgical History: Past Medical History: Diagnosis Date Alcohol abuse GERD (gastroesophageal reflux disease) Hypertension Past Surgical History: Procedure Laterality Date ESOPHAGECTOMY Vitals and Basic Assessment: Vitals: Vitals: 01/12/25 0557 BP: (!) 155/87 Pulse: 58 Resp: 17 Temp: 98.2 ??F (36.8 ??C) SpO2: 100% Oxygen: 2LNC Bhanu Scale: Bhanu Scale Score: 15 Last BM: Last BM Date: 01/11/25 GI Symptoms: soft, non distended, non tender, +BS Edema: none documented Skin: intact, some scabbing/bruising (suspect from falls) Allergies: No Known Allergies Scheduled Medications: Current Facility-Administered Medications Medication Dose Route Frequency Provider Last Rate Last Admin acetaminophen (TYLENOL) tablet 1,000 mg 1,000 mg oral Q6H PRN Jarek Connor MD 1,000 mg at 01/11/252002 cloNIDine (CATAPRES) tablet 0.1 mg 0.1 mg oral Q4H PRN Jarek Connor MD 0.1 mg at 01/10/25 0851 cloNIDine (CATAPRES) tablet 0.1 mg 0.1 mg oral TID Minna Osuna MD 0.1 mg at 01/11/25 1514 diazePAM (VALIUM) injection 5 mg 5 mg intravenous Q5 Min PRN Jarek Connor MD 5 mg at 01/06/25 0139 docusate sodium (COLACE) capsule 100 mg 100 mg oral BID PRN Jarek Connor MD erythromycin 5 mg/gram (0.5 %) ophthalmic ointment 1 g 0.5 inch left eye Q4H Jarek Connor MD 1 g at 01/12/25 0557 folic acid (FOLVITE) tablet 1 mg 1 mg oral Daily Minna Osuna MD 1 mg at 01/11/25 0936 hydrALAZINE (APRESOLINE) injection 10 mg 10 mg intravenous Q4H PRN Jarek Connor MD 10 mg at 01/12/25 0019 LORazepam (ATIVAN) injection 1 mg 1 mg intravenous Q30 Min PRN Minna Osuna MD Or LORazepam (ATIVAN) tablet 1 mg 1 mg oral Q30 Min PRN Minna Osuna MD LORazepam (ATIVAN) injection 2 mg 2 mg intravenous Q30 Min PRN Minna Osuna MD Or LORazepam (ATIVAN) tablet 2 mg 2 mg oral Q30 Min PRN Minna Osuna MD LORazepam (ATIVAN) injection 3 mg 3 mg intravenous Q30 Min PRN Minna Osuna MD Or LORazepam (ATIVAN) tablet 3 mg 3 mg oral Q30 Min PRN Minna Osuna MD LORazepam (ATIVAN) injection 4 mg 4 mg intravenous Q30 Min PRN Minna Osuna MD Or LORazepam (ATIVAN) tablet 4 mg 4 mg oral Q30 Min PRN Minna Osuna MD LORazepam (ATIVAN) tablet 1 mg 1 mg oral Q8H PRN Jarek Connor MD LORazepam (ATIVAN) tablet 1 mg 1 mg oral Q4H PRN Carlee Sutton MD LORazepam (ATIVAN) tablet 1 mg 1 mg oral Q6H Minna Osuna MD 1 mg at 01/12/25 0242 magnesium oxide (MAG-OX) tablet 200 mg 200 mg oral Daily with breakfast Carlee Sutton MD 200 mg at 01/11/25 1114 magnesium sulfate IVPB 2 g in sterile water 50 mL (premix) 2 g intravenous Daily PRN Jarek Connor MD magnesium sulfate IVPB 2 g in sterile water 50 mL (premix) 2 g intravenous BID PRN Jarek Connor MD melatonin tablet 5 mg 5 mg oral Every Night PRN Jarek Connor MD metoprolol tartrate (LOPRESSOR) tablet 50 mg 50 mg oral BID Minna Osuna MD 50 mg at 01/11/252002 morphine injection 2 mg 2 mg intravenous Q4H PRN Jarek Connor MD naloxone (NARCAN) injection 0.2 mg 0.2 mg intravenous Q2 Min PRN Jarek Connor MD ondansetron (ZOFRAN-ODT) disintegrating tablet 4 mg 4 mg oral Q8H PRN Jarek Connor MD Or ondansetron (ZOFRAN) injection 4 mg 4 mg intravenous Q4H PRN Jarek Connor MD pantoprazole (PROTONIX) EC tablet 40 mg 40 mg oral Daily Jarek Connor MD 40 mg at 01/11/25 0936 potassium chloride (KLOR-CON) ER tablet 40 mEq 40 mEq oral 4x Daily PRN Jarek Connor MD 40 mEq at01/10/25 0911 potassium chloride (KLOR-CON) ER tablet 40 mEq 40 mEq oral Once Carlee Sutton MD potassium chloride IVPB 10 mEq in 100 mL sterile water (premix) 10 mEq intravenous Q1H PRN Jarek Connor MD thiamine tablet 200 mg 200 mg oral Daily Carlee Sutton MD 200 mg at 01/11/25 0936 Drips: None Recent Labs 01/10/25 0336 01/11/25 0253 01/12/25 0322 NA 140 135* 137 K 3.6 4.2 3.8 CO2 25 21* 22 BUN 20.2 23.3 24.8 CREATININE 0.69* 0.69* 0.74 GLUCOSE 104* 113* 99 CALCIUM 9.3 9.3 9.2 PROT 6.8 6.9 -- ALBUMIN 2.9* 2.9* -- BILITOT 0.6 0.5 -- ALKPHOS 47 47 -- AST 71* 44* -- ALT 159* 117* -- HGB 11.4* 12.0* -- HCT 33.0* 36.9* -- No results found for: HGBA1C Anthropometrics: Ht: Height: 167.6 cm (5' 6 ) Wt: Weight: 61.2 kg (135 lb) Wt hx: Wt Readings from Last 40 Encounters: 01/05/25 61.2 kg (135 lb) *[facility] Admission 03/27/24 Weight: 47.3 kg (104 lb 4.8 oz) (03/26/242057) ? Outlier - question accuracy *[facility] Admission 12/23/23 Weight Weight (kg) Weight (lbs) Weight Method Visit Report 12/11/2018 74.753 kg 164 lb 12.8 oz -- 01/25/2019 67.586 kg 149 lb Stated 72.576 kg 160 lb 12/20/2023 67.6 kg 149 lb 0.5 oz Stated 12/21/2023 60.782 kg 134 lb Bed scale 06/2022-138lbs at [facility] 09/2022-133lbs office visit BMI: Body mass index is 21.79 kg/m??. Wt Change: fluctuations noted UBW: UTO IBW: 136# Percent IBW: 99% Estimated Needs: 4312-2748 kcals (MSJ X 1.3) 61-73 g PRO (1-1.2 g/kg) Current Nutrition Intake: Diet Orders: Diet Order(s): Heart Healthy Diet Supplements: RD to order Vanilla Boost TID Intake: UTO Enteral Nutrition? no Diet Experience and Nutrition History: Previous Nutrition Education: Unknown Diet Education Provided: not at this time Nutrition Focused Physical Exam: Date performed: defer Physical signs of fat or muscle wasting with severity: - Energy intake hx: - Wt loss: - Assessment of Malnutrition: Unable to complete malnutrition evaluation at this time. Nutrition Diagnoses: Problem #1: Predicted Sub Optimal Intake Etiology: decreased appetite, Etoh use disorder Signs/Symptoms: no intakes + poor appetite recorded, previous diagnosis of PCM Status: New Nutrition Interventions and Recommendations: Collaboration with other providers, General, healthfuldiet, and Commercial beverage Nutrition Monitoring and Goals: - Continue heart healthy diet, RD to order vanilla Boost TID. Goal: >50% PO intakes + ONS - Monitor elytes, recommend replacing prn. Goal: wnls - Obtain wt 2x weekly Goal: avoid involuntary significant wt change Nutrition Risk Level: High Risk Bonita Oden RD -Registration Eligible Co-signed by: Cherelle James MS, RD, LD * Sandra Ariza PA-C - 01/06/2025 9:05 AM EDTAssociated Order(s): Inpatient consult to Neurosurgery Inpatient consult to Neurosurgery Consult performed by: Sandra Ariza PA-C Consult ordered by: Jarek Connor MD [facility] NEUROSURGERY CONSULT NOTE Primary Care Provider: NANCY Find-a-Doc History of Present Illness Prosper Douglas is a 59 y.o. male with a history of depression, alcohol dependence, malnutrition, and iron deficiency anemia presenting to the hospital with complaints of increased falls over thepast several months. He is a poor historian. He advises that he had a fall on 10/23/2024 where he struck his head and states that he has had a headache ever since. He denies any nausea, vomiting, weakness, or other neurological symptoms. A CTH was performed and a SDH was noted. Neurosurgery was consulted. Review of Systems Review of Systems All other systems reviewed and are negative. Past Medical History He has a past medical history of Alcohol abuse, GERD (gastroesophageal reflux disease), and Hypertension. Past Surgical History He has a past surgical history that includes Esophagectomy. Family History He family history is not on file. Allergies Patient has no known allergies. Medications Medications Prior to Admission Medication Sig Dispense Refill Last Dose/Taking ferrous sulfate 325 (65 FE) MG tablet Take 1 tablet (325 mg total) by mouth 3 (three) times a week MON/WED/FRI. simvastatin (ZOCOR) 20 MG tablet Take 1 tablet (20 mg total) by mouth nightly. Vitals Blood pressure 138/80, pulse 91, temperature 98.6 ??F (37 ??C), temperature source Oral, resp. rate13, height 1.676 m (5' 6 ), weight 61.2 kg (135 lb), SpO2 98%. Physical Exam Constitutional: General: He is not in acute distress. Appearance: Normal appearance. He is not ill-appearing. HENT: Head: Normocephalic. Eyes: Extraocular Movements: Extraocular movements intact. Pupils: Pupils are equal, round, and reactive to light. Pulmonary: Effort: Pulmonary effort is normal. Musculoskeletal: General: Normal range of motion. Cervical back: Normal range of motion. Skin: Comments: Abrasions noted to the face Neurological: General: No focal deficit present. Mental Status: He is alert and oriented to person, place, and time. Motor: Weakness (Generalized) present. Coordination: Coordination normal. Relevant Results No results found for this or any previous visit from the past 2 days. Assessment/Plan Discussed with Dr. Guerrero. CTH appears stable. Should continue Q1 neuro checks and remain in the ICU for now. DVT ppx can be started. No surgical plans at this time. Signed: Electronically signed by Sandra Ariza PA-C 01/06/25 9:05 AM EDT Cosigned by Russel Guerrero MD at 01/06/2025 4:53 PM EDT Associated attestation - Russel Guerrero MD - 01/06/2025 3:53 PM CDT I saw this patient. reviewed the notes, assessments, and/or procedures performed by Sandra Ariza, I concur with her/his documentation of Prosper Douglas. Repeat CTH shows no significant interval enlargement of the SDH. He is doing well neurologically. He's alert and oriented. Continue close monitoring tonight and tentatively downgrade to stepdown tomorrow. * Ciarra Reed APRN - 01/06/2025 12:16 AM EDTAssociated Order(s): Inpatient consult to Pulmonology Inpatient consult to Pulmonology Consult performed by: Ciarra Reed APRN Consult ordered by: Jarek Connor MD Reason for consult: Critical care management PULMONARY AND CRITICAL CARE Consult Note Date of Service: 01/06/2025 Time: 12:17 AM HPI: This is a 59 y.o. year old male with past medical history as below. He presented to the ED on 01/05 with left eye discharge, multiple falls, and a headache. Upon arrival, labs of significance includedplatelets 62, creatinine 1.37, AST 151, ALT 82, and magnesium 1.5. CT brain revealed mixed density right subdural hemorrhage with an acute component measuring 5.5 mm and probable small hemorrhage along the right cerebellum and left tentorium. Neurosurgery was consulted and he was given IV vitamin [place] with two packs of platelets. He was admitted to the unit and Pulmonary has been consulted forcritical care management. PAST MEDICAL HISTORY: Past Medical History: Diagnosis Date Alcohol abuse GERD (gastroesophageal reflux disease) Hypertension PAST SURGICAL HISTORY: Past Surgical History: Procedure Laterality Date ESOPHAGECTOMY Allergies: No Known Allergies SOCIAL HISTORY: Social History Tobacco Use Smoking status: Never Smokeless tobacco: Never Substance Use Topics Alcohol use: Yes Comment: 2-3 short glasses a day Drug use: Never FAMILY HISTORY: family history is not on file. Review of Systems Unable to perform ROS: Mental status change (Drowsy s/p Valium) Vital Signs Temp: [98.7 ??F (37.1 ??C)-99.2 ??F (37.3 ??C)] 98.7 ??F (37.1 ??C) Pulse: [94-116] 110 Resp: [16-24] 16 BP: (144-168)/(82-99) 146/82 Current: Temp: 98.7 ??F (37.1 ??C) Pulse: 110 Resp: 16 BP: (!) 146/82 SpO2: 98 % 24 Hour: BP Min: 144/89 Max: 168/94 Temp Min: 98.7 ??F (37.1 ??C) Max: 99.2 ??F (37.3 ??C) Pulse Min: 94 Max: 116 Resp Min: 16 Max: 24 SpO2 Min: 90 % Max: 98 % Height Min: 167.6 cm (5' 6 ) Max: 167.6 cm (5' 6 ) Weight Min: 61.2 kg (135 lb) Max: 61.2 kg (135 lb) Intake/Output: No intake/output data recorded. Physical Exam Constitutional: General: He is not in acute distress. Appearance: He is ill-appearing. Comments: Drowsy. Room air HENT: Head: Normocephalic. Nose: Nose normal. Mouth/Throat: Mouth: Mucous membranes are moist. Pharynx: Oropharynx is clear. Eyes: Comments: Left eye with yellow discharge and matting Cardiovascular: Rate and Rhythm: Normal rate and regular rhythm. Pulses: Normal pulses. Heart sounds: Normal heart sounds. Pulmonary: Effort: Pulmonary effort is normal. No respiratory distress. Breath sounds: Normal breath sounds. Abdominal: General: Abdomen is flat. Palpations: Abdomen is soft. Musculoskeletal: General: Normal range of motion. Cervical back: Normal range of motion. Skin: General: Skin is warm and dry. Capillary Refill: Capillary refill takes less than 2 seconds. Neurological: Comments: Drowsy s/p Valium Psychiatric: Comments: Unable to assess, patient condition Vent / O2 Management: LABS Results for orders placed or performed during the hospital encounter of 01/05/25 (from the past 24 hours) ECG 12 lead Status: None (In process) Collection Time: 01/05/25 6:11 PM Result Value Ref Range VENTRICULAR RATE EKG/MIN 108 BPM ATRIAL RATE (MCT) 108 BPM MA Interval 121 ms QRS-INTERVAL (MSEC) 83 ms QT Interval 342 ms QTC Interval 458 ms P [place] 45 degrees R AXIS (MCT) 73 degrees T Wave [place] 64 degrees [place] Diagnosis Sinus tachycardia Otherwise normal ECG No previous ECGs available Ethanol Status: Normal Collection Time: 01/05/25 6:32 PM Result Value Ref Range Ethanol Lvl <10 <=10 mg/dL Salicylate level Status: Abnormal Collection Time: 01/05/25 6:32 PM Result Value Ref Range Salicylate Lvl <5.0 (L) 15.0 - 30.0 mg/dL Acetaminophen level Status: Abnormal Collection Time: 01/05/25 6:32 PM Result Value Ref Range Acetaminophen Level <3 (L) 10 - 30 ug/mL CBC with automated diff Status: Abnormal Collection Time: 01/05/25 6:32 PM Result Value Ref Range WBC 7.1 4.2 - 9.1 K/??L RBC 3.13 (L) 4.63 - 6.08 M/??L Hemoglobin 11.2 (L) 13.7 - 17.5 GM/DL Hematocrit 31.9 (L) 40.1 - 51.0 % MCV 102 (H) 79 - 92 fL MCH 35.8 (H) 25.7 - 32.2 pg MCHC 35.1 32.3 - 36.5 GM/DL RDW 14.4 11.6 - 14.4 % Platelets 62 (L) 140 - 375 K/CU MM MPV 10.0 9.4 - 12.4 fL % Neutros 90 (H) 34 - 68 % % Lymphs 3 (L) 22 - 53 % % Monos 6 5 - 12 % % Eos 0 (L) 1 - 7 % % Baso 0 0 - 1 % NRBC Absolute <0.01 0 - 0.012 K/ul # Neutros 6.40 (H) 1.78 - 5.38 K/??L # Lymphs 0.23 (L) 1.32 - 3.57 K/??L # Monos 0.41 0.30 - 0.82 K/??L # Eos <0.03 (L) 0.04 - 0.54 K/ L # Baso <0.03 0.01 - 0.08 K/ L Immature Granulocytes-Relative 0.80 (H) 0.01 - 0.43 % # IG 0.06 (H) 0.00 - 0.03 K/uL Comprehensive metabolic panel Status: Abnormal Collection Time: 01/05/25 6:32 PM Result Value Ref Range Sodium 135 (L) 136 - 145 meq/L Potassium 4.1 3.4 - 5.1 meq/L Chloride 92 (L) 98 - 112 meq/L CO2 15 (L) 22 - 29 meq/L Calcium 9.0 8.4 - 10.2 mg/dL Glucose 133 (H) 74 - 100 mg/dL BUN 23.7 8.4 - 25.7 mg/dL Creatinine 1.37 (H) 0.72 - 1.25 mg/dL BUN/Creatinine 17 8 - 20 eGFR (mL/min/1.73m2) 59 (L) >=60 mL/min/1.73m2 Albumin 3.7 3.5 - 5.0 g/dL Alkaline Phosphatase 60 40 - 150 U/L ALT 82 (H) <=45 U/L AST 151 (H) 11 - 34 U/L Total Bilirubin 1.2 0.2 - 1.2 mg/dL Protein, Total 8.0 6.4 - 8.3 g/dL Globulin 4.3 (H) 2.5 - 4.1 g/dL Anion Gap 32 (H) 4 - 12 A/G Ratio 0.9 0.7 - 1.9 Osmolality Calc 276.0 mOsm/kg CBC Scan Status: Abnormal Collection Time: 01/05/25 6:32 PM Result Value Ref Range Platelet Estimate Decreased (A) Adequate RBC Morphology abnormal (A) Normal Anisocytosis 1+ Hypochromia 1+ ABO/RH Confirmation/Retype Status: None Collection Time: 01/05/25 6:32 PM Result Value Ref Range RETYPE A Positive Magnesium Status: Abnormal Collection Time: 01/05/25 6:32 PM Result Value Ref Range Magnesium 1.5 (L) 1.6 - 2.6 mg/dL Prepare Plateletpheresis: 2 Units Status: None (Preliminary result) Collection Time: 01/05/25 7:57 PM Result Value Ref Range Issue Date/Time [id number] Product Identification Platelets Product Code [id number] Status Information TRANSFUSED Unit Number [id number] Blood Type 5100 Type and Screen Status: None Collection Time: 01/05/25 8:39 PM Result Value Ref Range ABO/Rh A Positive Antibody Screen Negative HISTCHK HIST CHECK PERFORMED PT/INR, PTT Status: Normal Collection Time: 01/05/25 8:39 PM Result Value Ref Range aPTT 27.0 22.0 - 32.0 seconds Protime 10.3 9.0 - 12.0 seconds INR 0.92 0.80 - 1.10 Hemoglobin and Hematocrit Status: Abnormal Collection Time: 01/05/25 9:47 PM Result Value Ref Range Hemoglobin 11.2 (L) 13.7 - 17.5 GM/DL Hematocrit 32.5 (L) 40.1 - 51.0 % Glucose, Nova Meter Status: Abnormal Collection Time: 01/05/25 11:11 PM Result Value Ref Range POC-GLUCOSE 151 (H) 70 - 110 mg/dL Coroner Forensic Technician [id number] Radiology Radiology Results (last day) Procedure Component Value Units Date/Time CT brain without IV contrast [[id number]] Collected: 01/05/251919 Order Status: Completed Updated: 01/05/251926 Narrative: CT SCAN OF THE HEAD WITHOUT CONTRAST INDICATION: Alcohol problem. TECHNIQUE: Multiple axial CT images were performed from the foramen magnum to the vertex without contrast. Coronal reconstruction images were obtained from the axial data. This study was performed with techniques to keep radiation doses as low as reasonably achievable (ALARA). Individualized dose reduction techniques using automated exposure control or adjustment of mA and/or KV according to the patient size were employed. COMPARISON: None. FINDINGS: There is no midline shift or hydrocephalus. There is a mixed density right subdural hemorrhage with an acute component. The acute component measures 5 mm on series 2, image 23. This extends along the right tentorium. There may also be a small extra-axial component along the lateral aspect of the right cerebellum. There is also increased density along the left tentorium and a small left subdural hemorrhage is suspected.. No acute soft tissue abnormality. No acute osseous abnormalities are present. Impression: 1. Mixed density right subdural hemorrhage with an acute component measuring 5 mm. Short follow-up is recommended. 2. Probable small hemorrhage along the right cerebellum and small amount of hemorrhage layering along the left tentorium. This was directly communicated to Lana on 01/05/2025 at 7:25 PM. Images reviewed, interpreted, and dictated by Flor Cisneros MD Microbiology: Microbiology Results (last 7 days) No results found for the last 168 hours. ASSESSMENT: Pulmonary Consulted for critical care management Currently on room air Never smoker Neuro CT brain - mixed density right subdural hemorrhage with an acute component measuring 5.5 mm and probable small hemorrhage along the right cerebellum and left tentorium Awake, alert Cardiac Hemodynamically stable History of HTN Heme Thrombocytopenia Renal Acute kidney injury, baseline unknown Hypomagnesemia ENT Left eye conjunctivitis GI Transaminitis General ETOH abuse PLAN: Supplemental O2 for goal sat 92-96% - currently on room air Hemodynamics: Stable, off pressors Repeat platelet level at 0100 Neurosurgery following Replace magnesium CIWA protocol per primary NPO Prophylaxis: Protonix, SCDs Anticoagulation on hold secondary to SDH Labs in AM Code status: Full code Disposition: ICU Cosigned by Kristopher Foster MD at 01/14/2025 10:06 PM EDT * Russel Guerrero MD - 01/05/2025 7:59 PM EDT This is a 59M with a history of depression, alcohol dependence, and malnutrition with iron deficiency anemia presenting with multiple complaints including increasing falls for the past several months. He has been admitted in the past for generalized weakness and EtOH withdrawal seizure. In the ED his plt count is 62k, Hgb 11.2, AST 151, ALT 82, EtOH neg. UDS is pending. CTH shows a thin acute SDHalong the right convexity as well as a small amount of apparent SDH along the right posterior fossaand tentorium. There is minimal mass effect and no midline shift, however he is at high risk of decline. I discussed his case with the ED provider. He is awake and alert and able to provide his own history. - Admit to the ICU with Q1H neuro checks - Platelet transfusion ordered by ED. Would prefer target > 75-100k, however > 50k may be acceptable if his hemorrhage remains stable on repeat imaging - Stat coag panel. Discussed with RN. - PCC if INR > 1.5 - IV Vit K ordered - Repeat CTH at 0500 tomorrow. If neurologic exam declines before then, obtain stat CTH and notify me immediately - Alcohol withdrawal management per medicine team - Please feel free to call me with any questions or concerns. documented in this encounter ED Notes * Chris Zamudio MD - 01/05/2025 6:18 PM EDTAssociated Order(s): Critical Care Subjective Chief Complaint: Alcohol Problem History of Present Illness: Patient is a 59 y.o. male with past medical history of alcohol dependence (drinks 4-6 vodkas with diet Mountain Dew, last drink approximately 12 hours ago), who presents here with a myriad of complaints. Has had matting of his left eye for the last 3 to 4 days. Not on any topical antibiotics. Has had multiple falls, complaining of diffuse headache but denies any limb pain. Comes here via EMS. Patient History Past Medical History: Diagnosis Date Alcohol abuse GERD (gastroesophageal reflux disease) Hypertension Past Surgical History: Procedure Laterality Date ESOPHAGECTOMY Social History Tobacco Use Smoking status: Never Smokeless tobacco: Never Substance Use Topics Alcohol use: Yes Comment: 2-3 short glasses a day Primary Care Provider: NANCY Find-a-Doc Review of Systems Review of Systems Negative except as documented in the HPI. Physical Exam Vitals: 01/06/25 0000 01/06/25 0100 01/06/25 0147 01/06/25 0400 BP: 131/80 (!) 143/79 129/71 129/71 Pulse: 101 103 104 Resp: 20 10 19 Temp: TempSrc: SpO2: 97% 98% 96% Weight: Height: Physical Exam Vitals and nursing note reviewed. Constitutional: General: He is not in acute distress. Appearance: Normal appearance. He is not ill-appearing, toxic-appearing or diaphoretic. HENT: Head: Normocephalic. Right Ear: External ear normal. Left Ear: External ear normal. Nose: Nose normal. No congestion or rhinorrhea. Eyes: General: No scleral icterus. Right eye: No discharge. Left eye: No discharge. Extraocular Movements: Right eye: Normal extraocular motion and no nystagmus. Left eye: Normal extraocular motion and no nystagmus. Conjunctiva/sclera: Left eye: Left conjunctiva is injected. No chemosis, exudate or hemorrhage. Cardiovascular: Rate and Rhythm: Normal rate and regular rhythm. Pulses: Normal pulses. Heart sounds: Normal heart sounds. No murmur heard. No friction rub. No gallop. Pulmonary: Effort: Pulmonary effort is normal. No respiratory distress. Breath sounds: Normal breath sounds. Abdominal: General: Bowel sounds are normal. There is no distension. Palpations: Abdomen is soft. Tenderness: There is no abdominal tenderness. Musculoskeletal: General: Normal range of motion. Cervical back: Normal range of motion. Skin: Capillary Refill: Capillary refill takes less than 2 seconds. Comments: Bruising along right lower eye Neurological: General: No focal deficit present. Mental Status: He is alert. Mental status is at baseline. Comments: Left upper extremity: 1/5 Right upper extremity: 4/5 Lower extremities: 2/5 He is alert, answers all questions Psychiatric: Mood and Affect: Mood normal. Behavior: Behavior normal. Thought Content: Thought content normal. Judgment: Judgment normal. Critical Care Performed by: Chris Zamudio MD Authorized by: Jarek Connor MD Critical care provider statement: Critical care time (minutes): 31 Critical care time was exclusive of: Separately billable procedures and treating other patients Critical care was necessary to treat or prevent imminent or life-threatening deterioration of the following conditions: [employer]AL [employer]AM[employer]ER failure or compromise Critical care was time spent personally by me on the following activities: Discussions with consultants, examination of patient, ordering and performing treatments and interventions, ordering and review of laboratory studies, ordering and review of radiographic studies, pulse oximetry, re-evaluation of patient's condition and review of old charts ED Course & MDM ED Course as of 01/06/25 0555 e Jan 05, [id number] WBC: 7.1 [TJ] 1847 Hemoglobin(!): 11.2 [TJ] 1847 Platelets(!): 62 Platelets 224 04/01/2024 [TJ] 193 Paging neurosurgery. [TJ] 2000 NSGY recommends admission, repeat CT tomorrow, frequent neuro checks, transfuse platelets. [TJ] 2110 Dr. Zamudio: I saw the patient [id number]. I performed a substantive portion of the MDM. Differential diagnosis would include alcohol intoxication, metabolic encephalopathy, electrolyte abnormality, intracranial pathology, or other concerns. [DT] ED Course User Index [DT] Chris Zamudio MD [TJ] Rambo Jackson PA-C Medications potassium chloride (KLOR-CON) ER tablet 40 mEq (has no administration in time range) potassium chloride IVPB 10 mEq in 100 mL sterile water (premix) (has no administration in time range) ondansetron (ZOFRAN-ODT) disintegrating tablet 4 mg (has no administration in time range) Or ondansetron (ZOFRAN) injection 4 mg (has no administration in time range) melatonin tablet 5 mg (has no administration in time range) LORazepam (ATIVAN) tablet 1 mg (has no administration in time range) docusate sodium (COLACE) capsule 100 mg (has no administration in time range) acetaminophen (TYLENOL) tablet 1,000 mg (has no administration in time range) morphine injection 2 mg (has no administration in time range) naloxone (NARCAN) injection 0.2 mg (has no administration in time range) hydrALAZINE (APRESOLINE) injection 10 mg (has no administration in time range) dextrose 5 %-sodium chloride 0.45 % (D5-1/2NS) 1,000 mL with magnesium sulfate 2 g, MVI, adult 10 mL, folic acid 1 mg, thiamine 100 mg infusion ( intravenous Rate/Dose Verify 01/06/25 0241) magnesium sulfate IVPB 2 g in sterile water 50 mL (premix) (has no administration in time range) magnesium sulfate IVPB 2 g in sterile water 50 mL (premix) (has no administration in time range) pantoprazole (PROTONIX) EC tablet 40 mg (40 mg oral Given 01/05/25 2228) diazePAM (VALIUM) injection 5 mg (5 mg intravenous Given 01/06/25 0139) diazePAM (VALIUM) injection 5 mg (5 mg intravenous Given 01/06/25 0457) diazePAM (VALIUM) injection 7.5 mg (7.5 mg intravenous Given 01/05/25 2357) diazePAM (VALIUM) injection 10 mg (has no administration in time range) diazePAM (VALIUM) injection 10 mg (has no administration in time range) cloNIDine (CATAPRES) tablet 0.1 mg (has no administration in time range) erythromycin 5 mg/gram (0.5 %) ophthalmic ointment 1 g (1 g left eye Given 01/06/25 0533) potassium phosphate 15 mmol in sodium chloride 0.9 % (NS) 250 mL infusion (15 mmol intravenous IVPBStarted 01/06/25 0544) erythromycin 5 mg/gram (0.5 %) ophthalmic ointment 1 g (1 g left eye Given 01/05/25 1918) sodium chloride 0.9% (NS) bolus (0 mLs intravenous Stopped 01/05/25 193) LORazepam (ATIVAN) injection 1 mg (1 mg intravenous Given 01/05/251837) phytonadione (vitamin K1) (AQUA-MEPHYTON) 10 mg in dextrose 5 % (D5W) 50 mL IVPB (0 mg intravenous Stopped 01/05/252207) magnesium sulfate IVPB 2 g in sterile water 50 mL (premix) (0 g intravenous IVPB Stopped 01/06/25 0323) Medical Decision Making Amount and/or Complexity of Data Reviewed Labs: ordered. Decision-making details documented in ED Course. Radiology: ordered. ECG/medicine tests: ordered. Risk Prescription drug management. Decision regarding hospitalization. History of Present Illness: Patient is a 59 y.o. male with past medical history of alcohol dependence (drinks 4-6 vodkas with diet Mountain Dew, last drink approximately 12 hours ago), who presents here with a myriad of complaints. Has had matting of his left eye for the last 3 to 4 days. Not on any topical antibiotics. Has had multiple falls, complaining of diffuse headache but denies any limb pain. Comes here via EMS. On exam has left eye conjunctivitis. Also a small hematoma. 5 out of 5 strength in all extremities. Presenting vitals: Within normal limits Differential diagnosis: Alcohol dependence, intracranial hemorrhage. Labs: CBC shows thrombocytopenia with platelets of 62. CMP nonactionable. Ethanol unremarkable.. Imaging: CT brain per my interpretation shows some blood along the tentorium.Per radiologist interpretation of CT brain without contrast shows: 1. Mixed density right subdural hemorrhage with an acute component measuring 5 mm. Short follow-up is recommended. 2. Probable small hemorrhage along the right cerebellum and small amount of hemorrhage layering along the left tentorium. Interventions: Medications potassium chloride (KLOR-CON) ER tablet 40 mEq (has no administration in time range) potassium chloride IVPB 10 mEq in 100 mL sterile water (premix) (has no administration in time range) ondansetron (ZOFRAN-ODT) disintegrating tablet 4 mg (has no administration in time range) Or ondansetron (ZOFRAN) injection 4 mg (has no administration in time range) melatonin tablet 5 mg (has no administration in time range) LORazepam (ATIVAN) tablet 1 mg (has no administration in time range) docusate sodium (COLACE) capsule 100 mg (has no administration in time range) acetaminophen (TYLENOL) tablet 1,000 mg (has no administration in time range) morphine injection 2 mg (has no administration in time range) naloxone (NARCAN) injection 0.2 mg (has no administration in time range) hydrALAZINE (APRESOLINE) injection 10 mg (has no administration in time range) dextrose 5 %-sodium chloride 0.45 % (D5-1/2NS) 1,000 mL with magnesium sulfate 2 g, MVI, adult 10 mL, folic acid 1 mg, thiamine 100 mg infusion ( intravenous Rate/Dose Verify 01/06/25 0241) magnesium sulfate IVPB 2 g in sterile water 50 mL (premix) (has no administration in time range) magnesium sulfate IVPB 2 g in sterile water 50 mL (premix) (has no administration in time range) pantoprazole (PROTONIX) EC tablet 40 mg (40 mg oral Given 01/05/252227) diazePAM (VALIUM) injection 5 mg (5 mg intravenous Given 01/06/25 0139) diazePAM (VALIUM) injection 5 mg (5 mg intravenous Given 01/06/25 0457) diazePAM (VALIUM) injection 7.5 mg (7.5 mg intravenous Given 01/05/25 2357) diazePAM (VALIUM) injection 10 mg (has no administration in time range) diazePAM (VALIUM) injection 10 mg (has no administration in time range) cloNIDine (CATAPRES) tablet 0.1 mg (has no administration in time range) erythromycin 5 mg/gram (0.5 %) ophthalmic ointment 1 g (1 g left eye Given 01/06/25 0533) potassium phosphate 15 mmol in sodium chloride 0.9 % (NS) 250 mL infusion (15 mmol intravenous IVPBStarted 01/06/25 0544) erythromycin 5 mg/gram (0.5 %) ophthalmic ointment 1 g (1 g left eye Given 01/05/25 191) sodium chloride 0.9% (NS) bolus (0 mLs intravenous Stopped 01/05/251938) LORazepam (ATIVAN) injection 1 mg (1 mg intravenous Given 01/05/25 183) phytonadione (vitamin K1) (AQUA-MEPHYTON) 10 mg in dextrose 5 % (D5W) 50 mL IVPB (0 mg intravenous Stopped 01/05/252207) magnesium sulfate IVPB 2 g in sterile water 50 mL (premix) (0 g intravenous IVPB Stopped 01/06/25 0803) Discussion: Patient is a very poor historian. He tells me that he has had increasing falls since October 23 of this year. Complaining of diffuse headache. CT showed subdural hematoma. Consulted with neurosurgery who recommends admission to the ICU, frequent neurochecks as well as surveillance CT brain tomorrow. Transfuse platelets as well. CT scan also was concerning for possible cerebellar stroke, unclear last known well, but in context of subdural hematoma will not administer any thrombolytics. Spoke on epic chat with the on-call hospitalist Dr. Domínguez who graciously accepts admission. Patient was educated on his test results as well as their diagnosis. They were informed of the need for admission for cerebellar stroke, thrombocytopenia, conjunctivitis of left eye. They are amenable to the plan. Patient found in stable condition and subsequently admitted to [facility]. Assessment & Plan Clinical Impression Diagnosis Comment Added By Time Added Cerebellar stroke (HCC) Rambo Jackson PA-C 01/05/2025 7:58 PM Subdural hematoma (HCC) Rambo Jackson PA-C 01/05/2025 7:58 PM Thrombocytopenia (HCC) Rambo Jackson PA-C 01/05/2025 8:07 PM Conjunctivitis of left eye, unspecified conjunctivitis type Rambo Jackson PA-C 01/05/2025 8:10 PM Disposition: Admit [3] - 01/05/2025 8:53 PM There are no discharge medications for this patient. Electronically authenticated by: Rambo Jackson PA-C 01/05/252110 Chris Zamudio MD 01/06/25 5565 * Valentine Mckeon RN - 01/05/2025 6:12 PM EDT Pt. C/O alcohol withdrawal, pt. Last drink was yesterday. Pt. Also reports multiple falls over the last few weeks, with most recent fall on Saturday. Pt. Usually drinks 2-3 short glasses a day. Pt. Arrived via EMS from home. * Sharmila Ramirez RN - 01/05/2025 6:07 PM EDT Bed: ED20 Expected date: Expected time: Means of arrival: Comments: Denise Ramirez RN 01/05/25 1807 documented in this encounter Miscellaneous Notes * Plan of Care - Ha Hernandez RN - 01/15/2025 10:56 AM EDT Problem: Knowledge Deficit Goal: Patient/family/caregiver demonstrates understanding of disease process, treatment plan, medications, and discharge instructions Description: Complete learning assessment and assess knowledge base. Outcome: Progressing Problem: Potential for Falls Goal: Patient will remain free of falls Description: Assess and monitor vitals signs, neurological status including level of consciousness and orientation. Reassess fall risk per hospital policy. Ensure arm band on, uncluttered walking paths in room, adequate room lighting, call light and overbed table within reach, bed in low position, wheels locked, side rails up per policy, and non-skid footwear provided. Outcome: Progressing Problem: Risk for Falls Goal: No falls during hospitalization Description: Patient will not fall during hospitalization. Outcome: Progressing Problem: Knowledge Deficit Goal: Knowledge - personal safety Description: Patient will verbalize understanding of fall prevention. Outcome: Progressing Problem: Pain Goal: Patient's pain/discomfort is manageable Description: Assess and monitor patient's pain using appropriate pain scale. Collaborate with interdisciplinary team and initiate plan and interventions as ordered. Re-assess patient's pain level after pain management intervention. Outcome: Progressing Problem: Safety Goal: Patient will be injury free during hospitalization Description: Assess and monitor vitals signs, neurological status including level of consciousness and orientation. Assess patient's risk for falls and implement fall prevention plan of care and interventions per hospital policy. Ensure arm band on, uncluttered walking paths in room, adequate room lighting, call light and overbed table within reach, bed in low position, wheels locked, side rails up per policy, and non-skid footwear provided. Outcome: Progressing Problem: Potential for Developing a Blood Clot Goal: Tissue perfusion is adequate - venous Description: Assess and monitor skin color and temperature, skin integrity, pulses, capillary refill, edema, pain in extremities, Homans' sign, labs (D- dimer), and diagnostic tests (ultrasound, CT scan, VQ scan). Monitor for signs and symptoms of deep vein thrombosis (swelling of calf/thigh, redness, pain, tenderness). Monitor for signs and symptoms of pulmonary embolism (dyspnea, tachypnea, tachycardia). Collaborate with interdisciplinary team and initiate plans and interventions as needed Outcome: Progressing Problem: Daily Care Goal: Daily care needs are met Description: Assess and monitor ability to perform self care and identify potential discharge needs. Outcome: Progressing Problem: Potential for Infection Goal: Remains infection free Description: Assess and monitor vital signs, skin (color, moisture, integrity, turgor), respiratorystatus, urinary and gastrointestinal status, and labs (WBC, cultures). Administer antibiotics and antipyretics as ordered. Ensure aseptic care of all intravenous lines, invasive tubes/drains and wounds. Monitor for signs and symptoms of infection (redness, warmth, discharge, increased body temperature). Wash hands properly before and after each patient care activity. Follow isolation guidelines per hospital protocol/policy. Collaborate with interdisciplinary team and initiate plan and interventions as ordered. Outcome: Progressing Problem: Psychosocial Needs Goal: Demonstrates ability to cope with hospitalization/illness Description: Assess and monitor patients ability to cope with his/her illness. Outcome: Progressing Goal: Collaborate with patient/family/caregiver to identify patient specific goals for this hospitalization Outcome: Progressing Problem: Anxiety Goal: Anxiety is at manageable level Description: Assess and monitor patient's anxiety level. Monitor for signs and symptoms of anxiety both physical and emotional (heart palpitations, chest pain, shortness of breath, headaches, nausea,feeling jumpy, restlessness, irritable, apprehensive). Collaborate with interdisciplinary team and initiate plan and interventions as ordered. Outcome: Progressing Problem: Inadequate Coping Goal: Demonstrates ability to cope effectively Description: Patient is able to verbalize feelings related to emotional state. Outcome: Progressing Goal: Verbalizes adaptive coping mechanisms Description: Able to verbalize adaptive coping mechanisms such as physical activity, distraction, and deep breathing exercises. Outcome: Progressing Goal: Verbalizes personal strengths Description: Spend time with the patient using empathy and active listening skills. Outcome: Progressing Problem: Progressive Mobility Goal: BMAT Level 1 - With full mechanical lifting assistance: Outcome: Progressing Goal: BMAT Level 2 - With 2-person and/or mechanical lifting assistance: Outcome: Progressing Goal: BMAT Level 3 - With 1 to 2-person and/or mechanical lifting assistance: Outcome: Progressing Goal: BMAT Level 4 - With 1-person assistance or mobility aid as needed (walker, cane, crutches): Outcome: Progressing Problem: Discharge Barriers Goal: Patient's discharge needs are met Description: Collaborate with interdisciplinary team and initiate plans and interventions as needed. Outcome: Progressing Problem: Compromised Skin Integrity Goal: LTG - Patient will be free from infection Outcome: Progressing Goal: LTG - Patient will maintain/improve skin integrity through proper skin care techniques Outcome: Progressing Goal: LTG - Patient will demonstrate appropriate pressure relief techniques Outcome: Progressing Goal: LTG - Patient will demonstrate appropriate skin care techniques Outcome: Progressing Goal: LTG - Patient will be free from infection Outcome: Progressing Goal: STG - Patient demonstrates skin care/treatment/dressing change Outcome: Progressing Goal: STG - Patient will maintain good skin integrity Outcome: Progressing Goal: STG - Patient exhibits signs of wound healing. Outcome: Progressing Goal: STG - Patient demonstrates pressure reduction techniques Outcome: Progressing Goal: STG - Patient demonstrates preventative skin care measures Outcome: Progressing * Plan of Care - Ha Hernandez RN - 01/14/2025 9:32 AM EDT Problem: Knowledge Deficit Goal: Patient/family/caregiver demonstrates understanding of disease process, treatment plan, medications, and discharge instructions Description: Complete learning assessment and assess knowledge base. Outcome: Progressing Problem: Potential for Falls Goal: Patient will remain free of falls Description: Assess and monitor vitals signs, neurological status including level of consciousness and orientation. Reassess fall risk per hospital policy. Ensure arm band on, uncluttered walking paths in room, adequate room lighting, call light and overbed table within reach, bed in low position, wheels locked, side rails up per policy, and non-skid footwear provided. Outcome: Progressing Problem: Risk for Falls Goal: No falls during hospitalization Description: Patient will not fall during hospitalization. Outcome: Progressing Problem: Knowledge Deficit Goal: Knowledge - personal safety Description: Patient will verbalize understanding of fall prevention. Outcome: Progressing Problem: Pain Goal: Patient's pain/discomfort is manageable Description: Assess and monitor patient's pain using appropriate pain scale. Collaborate with interdisciplinary team and initiate plan and interventions as ordered. Re-assess patient's pain level after pain management intervention. Outcome: Progressing Problem: Safety Goal: Patient will be injury free during hospitalization Description: Assess and monitor vitals signs, neurological status including level of consciousness and orientation. Assess patient's risk for falls and implement fall prevention plan of care and interventions per hospital policy. Ensure arm band on, uncluttered walking paths in room, adequate room lighting, call light and overbed table within reach, bed in low position, wheels locked, side rails up per policy, and non-skid footwear provided. Outcome: Progressing Problem: Potential for Developing a Blood Clot Goal: Tissue perfusion is adequate - venous Description: Assess and monitor skin color and temperature, skin integrity, pulses, capillary refill, edema, pain in extremities, Homans' sign, labs (D- dimer), and diagnostic tests (ultrasound, CT scan, VQ scan). Monitor for signs and symptoms of deep vein thrombosis (swelling of calf/thigh, redness, pain, tenderness). Monitor for signs and symptoms of pulmonary embolism (dyspnea, tachypnea, tachycardia). Collaborate with interdisciplinary team and initiate plans and interventions as needed Outcome: Progressing Problem: Daily Care Goal: Daily care needs are met Description: Assess and monitor ability to perform self care and identify potential discharge needs. Outcome: Progressing Problem: Potential for Infection Goal: Remains infection free Description: Assess and monitor vital signs, skin (color, moisture, integrity, turgor), respiratorystatus, urinary and gastrointestinal status, and labs (WBC, cultures). Administer antibiotics and antipyretics as ordered. Ensure aseptic care of all intravenous lines, invasive tubes/drains and wounds. Monitor for signs and symptoms of infection (redness, warmth, discharge, increased body temperature). Wash hands properly before and after each patient care activity. Follow isolation guidelines per hospital protocol/policy. Collaborate with interdisciplinary team and initiate plan and interventions as ordered. Outcome: Progressing Problem: Psychosocial Needs Goal: Demonstrates ability to cope with hospitalization/illness Description: Assess and monitor patients ability to cope with his/her illness. Outcome: Progressing Goal: Collaborate with patient/family/caregiver to identify patient specific goals for this hospitalization Outcome: Progressing Problem: Anxiety Goal: Anxiety is at manageable level Description: Assess and monitor patient's anxiety level. Monitor for signs and symptoms of anxiety both physical and emotional (heart palpitations, chest pain, shortness of breath, headaches, nausea,feeling jumpy, restlessness, irritable, apprehensive). Collaborate with interdisciplinary team and initiate plan and interventions as ordered. Outcome: Progressing Problem: Inadequate Coping Goal: Demonstrates ability to cope effectively Description: Patient is able to verbalize feelings related to emotional state. Outcome: Progressing Goal: Verbalizes adaptive coping mechanisms Description: Able to verbalize adaptive coping mechanisms such as physical activity, distraction, and deep breathing exercises. Outcome: Progressing Goal: Verbalizes personal strengths Description: Spend time with the patient using empathy and active listening skills. Outcome: Progressing Problem: Progressive Mobility Goal: BMAT Level 1 - With full mechanical lifting assistance: Outcome: Progressing Goal: BMAT Level 2 - With 2-person and/or mechanical lifting assistance: Outcome: Progressing Goal: BMAT Level 3 - With 1 to 2-person and/or mechanical lifting assistance: Outcome: Progressing Goal: BMAT Level 4 - With 1-person assistance or mobility aid as needed (walker, cane, crutches): Outcome: Progressing Problem: Discharge Barriers Goal: Patient's discharge needs are met Description: Collaborate with interdisciplinary team and initiate plans and interventions as needed. Outcome: Progressing Problem: Compromised Skin Integrity Goal: LTG - Patient will be free from infection Outcome: Progressing Goal: LTG - Patient will maintain/improve skin integrity through proper skin care techniques Outcome: Progressing Goal: LTG - Patient will demonstrate appropriate pressure relief techniques Outcome: Progressing Goal: LTG - Patient will demonstrate appropriate skin care techniques Outcome: Progressing Goal: LTG - Patient will be free from infection Outcome: Progressing Goal: STG - Patient demonstrates skin care/treatment/dressing change Outcome: Progressing Goal: STG - Patient will maintain good skin integrity Outcome: Progressing Goal: STG - Patient exhibits signs of wound healing. Outcome: Progressing Goal: STG - Patient demonstrates pressure reduction techniques Outcome: Progressing Goal: STG - Patient demonstrates preventative skin care measures Outcome: Progressing * Plan of Care - Ivonne Medina - 01/13/2025 2:26 PM EDT Problem: Knowledge Deficit Goal: Patient/family/caregiver demonstrates understanding of disease process, treatment plan, medications, and discharge instructions Description: Complete learning assessment and assess knowledge base. Outcome: Progressing Problem: Potential for Falls Goal: Patient will remain free of falls Description: Assess and monitor vitals signs, neurological status including level of consciousness and orientation. Reassess fall risk per hospital policy. Ensure arm band on, uncluttered walking paths in room, adequate room lighting, call light and overbed table within reach, bed in low position, wheels locked, side rails up per policy, and non-skid footwear provided. Outcome: Progressing Problem: Risk for Falls Goal: No falls during hospitalization Description: Patient will not fall during hospitalization. Outcome: Progressing Problem: Knowledge Deficit Goal: Knowledge - personal safety Description: Patient will verbalize understanding of fall prevention. Outcome: Progressing Problem: Pain Goal: Patient's pain/discomfort is manageable Description: Assess and monitor patient's pain using appropriate pain scale. Collaborate with interdisciplinary team and initiate plan and interventions as ordered. Re-assess patient's pain level after pain management intervention. Outcome: Progressing Problem: Safety Goal: Patient will be injury free during hospitalization Description: Assess and monitor vitals signs, neurological status including level of consciousness and orientation. Assess patient's risk for falls and implement fall prevention plan of care and interventions per hospital policy. Ensure arm band on, uncluttered walking paths in room, adequate room lighting, call light and overbed table within reach, bed in low position, wheels locked, side rails up per policy, and non-skid footwear provided. Outcome: Progressing Problem: Potential for Developing a Blood Clot Goal: Tissue perfusion is adequate - venous Description: Assess and monitor skin color and temperature, skin integrity, pulses, capillary refill, edema, pain in extremities, Homans' sign, labs (D- dimer), and diagnostic tests (ultrasound, CT scan, VQ scan). Monitor for signs and symptoms of deep vein thrombosis (swelling of calf/thigh, redness, pain, tenderness). Monitor for signs and symptoms of pulmonary embolism (dyspnea, tachypnea, tachycardia). Collaborate with interdisciplinary team and initiate plans and interventions as needed Outcome: Progressing Problem: Daily Care Goal: Daily care needs are met Description: Assess and monitor ability to perform self care and identify potential discharge needs. Outcome: Progressing Problem: Potential for Infection Goal: Remains infection free Description: Assess and monitor vital signs, skin (color, moisture, integrity, turgor), respiratorystatus, urinary and gastrointestinal status, and labs (WBC, cultures). Administer antibiotics and antipyretics as ordered. Ensure aseptic care of all intravenous lines, invasive tubes/drains and wounds. Monitor for signs and symptoms of infection (redness, warmth, discharge, increased body temperature). Wash hands properly before and after each patient care activity. Follow isolation guidelines per hospital protocol/policy. Collaborate with interdisciplinary team and initiate plan and interventions as ordered. Outcome: Progressing Problem: Psychosocial Needs Goal: Demonstrates ability to cope with hospitalization/illness Description: Assess and monitor patients ability to cope with his/her illness. Outcome: Progressing Goal: Collaborate with patient/family/caregiver to identify patient specific goals for this hospitalization Outcome: Progressing Problem: Anxiety Goal: Anxiety is at manageable level Description: Assess and monitor patient's anxiety level. Monitor for signs and symptoms of anxiety both physical and emotional (heart palpitations, chest pain, shortness of breath, headaches, nausea,feeling jumpy, restlessness, irritable, apprehensive). Collaborate with interdisciplinary team and initiate plan and interventions as ordered. Outcome: Progressing Problem: Inadequate Coping Goal: Demonstrates ability to cope effectively Description: Patient is able to verbalize feelings related to emotional state. Outcome: Progressing Goal: Verbalizes adaptive coping mechanisms Description: Able to verbalize adaptive coping mechanisms such as physical activity, distraction, and deep breathing exercises. Outcome: Progressing Goal: Verbalizes personal strengths Description: Spend time with the patient using empathy and active listening skills. Outcome: Progressing Problem: Progressive Mobility Goal: BMAT Level 1 - With full mechanical lifting assistance: Outcome: Progressing Goal: BMAT Level 2 - With 2-person and/or mechanical lifting assistance: Outcome: Progressing Goal: BMAT Level 3 - With 1 to 2-person and/or mechanical lifting assistance: Outcome: Progressing Goal: BMAT Level 4 - With 1-person assistance or mobility aid as needed (walker, cane, crutches): Outcome: Progressing Problem: Discharge Barriers Goal: Patient's discharge needs are met Description: Collaborate with interdisciplinary team and initiate plans and interventions as needed. Outcome: Progressing Problem: Compromised Skin Integrity Goal: LTG - Patient will be free from infection Outcome: Progressing Goal: LTG - Patient will maintain/improve skin integrity through proper skin care techniques Outcome: Progressing Goal: LTG - Patient will demonstrate appropriate pressure relief techniques Outcome: Progressing Goal: LTG - Patient will demonstrate appropriate skin care techniques Outcome: Progressing Goal: LTG - Patient will be free from infection Outcome: Progressing Goal: STG - Patient demonstrates skin care/treatment/dressing change Outcome: Progressing Goal: STG - Patient will maintain good skin integrity Outcome: Progressing Goal: STG - Patient exhibits signs of wound healing. Outcome: Progressing Goal: STG - Patient demonstrates pressure reduction techniques Outcome: Progressing Goal: STG - Patient demonstrates preventative skin care measures Outcome: Progressing * Plan of Care - Ivonne Medina - 01/12/2025 6:25 PM EDT Problem: Knowledge Deficit Goal: Patient/family/caregiver demonstrates understanding of disease process, treatment plan, medications, and discharge instructions Description: Complete learning assessment and assess knowledge base. Outcome: Progressing Problem: Potential for Falls Goal: Patient will remain free of falls Description: Assess and monitor vitals signs, neurological status including level of consciousness and orientation. Reassess fall risk per hospital policy. Ensure arm band on, uncluttered walking paths in room, adequate room lighting, call light and overbed table within reach, bed in low position, wheels locked, side rails up per policy, and non-skid footwear provided. Outcome: Progressing Problem: Risk for Falls Goal: No falls during hospitalization Description: Patient will not fall during hospitalization. Outcome: Progressing Problem: Knowledge Deficit Goal: Knowledge - personal safety Description: Patient will verbalize understanding of fall prevention. Outcome: Progressing Problem: Pain Goal: Patient's pain/discomfort is manageable Description: Assess and monitor patient's pain using appropriate pain scale. Collaborate with interdisciplinary team and initiate plan and interventions as ordered. Re-assess patient's pain level after pain management intervention. Outcome: Progressing Problem: Safety Goal: Patient will be injury free during hospitalization Description: Assess and monitor vitals signs, neurological status including level of consciousness and orientation. Assess patient's risk for falls and implement fall prevention plan of care and interventions per hospital policy. Ensure arm band on, uncluttered walking paths in room, adequate room lighting, call light and overbed table within reach, bed in low position, wheels locked, side rails up per policy, and non-skid footwear provided. Outcome: Progressing Problem: Potential for Developing a Blood Clot Goal: Tissue perfusion is adequate - venous Description: Assess and monitor skin color and temperature, skin integrity, pulses, capillary refill, edema, pain in extremities, Homans' sign, labs (D- dimer), and diagnostic tests (ultrasound, CT scan, VQ scan). Monitor for signs and symptoms of deep vein thrombosis (swelling of calf/thigh, redness, pain, tenderness). Monitor for signs and symptoms of pulmonary embolism (dyspnea, tachypnea, tachycardia). Collaborate with interdisciplinary team and initiate plans and interventions as needed Outcome: Progressing Problem: Daily Care Goal: Daily care needs are met Description: Assess and monitor ability to perform self care and identify potential discharge needs. Outcome: Progressing Problem: Potential for Infection Goal: Remains infection free Description: Assess and monitor vital signs, skin (color, moisture, integrity, turgor), respiratorystatus, urinary and gastrointestinal status, and labs (WBC, cultures). Administer antibiotics and antipyretics as ordered. Ensure aseptic care of all intravenous lines, invasive tubes/drains and wounds. Monitor for signs and symptoms of infection (redness, warmth, discharge, increased body temperature). Wash hands properly before and after each patient care activity. Follow isolation guidelines per hospital protocol/policy. Collaborate with interdisciplinary team and initiate plan and interventions as ordered. Outcome: Progressing Problem: Psychosocial Needs Goal: Demonstrates ability to cope with hospitalization/illness Description: Assess and monitor patients ability to cope with his/her illness. Outcome: Progressing Goal: Collaborate with patient/family/caregiver to identify patient specific goals for this hospitalization Outcome: Progressing Problem: Anxiety Goal: Anxiety is at manageable level Description: Assess and monitor patient's anxiety level. Monitor for signs and symptoms of anxiety both physical and emotional (heart palpitations, chest pain, shortness of breath, headaches, nausea,feeling jumpy, restlessness, irritable, apprehensive). Collaborate with interdisciplinary team and initiate plan and interventions as ordered. Outcome: Progressing Problem: Inadequate Coping Goal: Demonstrates ability to cope effectively Description: Patient is able to verbalize feelings related to emotional state. Outcome: Progressing Goal: Verbalizes adaptive coping mechanisms Description: Able to verbalize adaptive coping mechanisms such as physical activity, distraction, and deep breathing exercises. Outcome: Progressing Goal: Verbalizes personal strengths Description: Spend time with the patient using empathy and active listening skills. Outcome: Progressing Problem: Progressive Mobility Goal: BMAT Level 1 - With full mechanical lifting assistance: Outcome: Progressing Goal: BMAT Level 2 - With 2-person and/or mechanical lifting assistance: Outcome: Progressing Goal: BMAT Level 3 - With 1 to 2-person and/or mechanical lifting assistance: Outcome: Progressing Goal: BMAT Level 4 - With 1-person assistance or mobility aid as needed (walker, cane, crutches): Outcome: Progressing Problem: Discharge Barriers Goal: Patient's discharge needs are met Description: Collaborate with interdisciplinary team and initiate plans and interventions as needed. Outcome: Progressing Problem: Compromised Skin Integrity Goal: LTG - Patient will be free from infection Outcome: Progressing Goal: LTG - Patient will maintain/improve skin integrity through proper skin care techniques Outcome: Progressing Goal: LTG - Patient will demonstrate appropriate pressure relief techniques Outcome: Progressing Goal: LTG - Patient will demonstrate appropriate skin care techniques Outcome: Progressing Goal: LTG - Patient will be free from infection Outcome: Progressing Goal: STG - Patient demonstrates skin care/treatment/dressing change Outcome: Progressing Goal: STG - Patient will maintain good skin integrity Outcome: Progressing Goal: STG - Patient exhibits signs of wound healing. Outcome: Progressing Goal: STG - Patient demonstrates pressure reduction techniques Outcome: Progressing Goal: STG - Patient demonstrates preventative skin care measures Outcome: Progressing * Plan of Care - Claritza Valdovinos RN - 01/11/2025 7:43 AM EDT Problem: Knowledge Deficit Goal: Patient/family/caregiver demonstrates understanding of disease process, treatment plan, medications, and discharge instructions Description: Complete learning assessment and assess knowledge base. Outcome: Progressing Problem: Potential for Falls Goal: Patient will remain free of falls Description: Assess and monitor vitals signs, neurological status including level of consciousness and orientation. Reassess fall risk per hospital policy. Ensure arm band on, uncluttered walking paths in room, adequate room lighting, call light and overbed table within reach, bed in low position, wheels locked, side rails up per policy, and non-skid footwear provided. Outcome: Progressing Problem: Risk for Falls Goal: No falls during hospitalization Description: Patient will not fall during hospitalization. Outcome: Progressing Problem: Knowledge Deficit Goal: Knowledge - personal safety Description: Patient will verbalize understanding of fall prevention. Outcome: Progressing Problem: Pain Goal: Patient's pain/discomfort is manageable Description: Assess and monitor patient's pain using appropriate pain scale. Collaborate with interdisciplinary team and initiate plan and interventions as ordered. Re-assess patient's pain level after pain management intervention. Outcome: Progressing Problem: Safety Goal: Patient will be injury free during hospitalization Description: Assess and monitor vitals signs, neurological status including level of consciousness and orientation. Assess patient's risk for falls and implement fall prevention plan of care and interventions per hospital policy. Ensure arm band on, uncluttered walking paths in room, adequate room lighting, call light and overbed table within reach, bed in low position, wheels locked, side rails up per policy, and non-skid footwear provided. Outcome: Progressing Problem: Potential for Developing a Blood Clot Goal: Tissue perfusion is adequate - venous Description: Assess and monitor skin color and temperature, skin integrity, pulses, capillary refill, edema, pain in extremities, Homans' sign, labs (D- dimer), and diagnostic tests (ultrasound, CT scan, VQ scan). Monitor for signs and symptoms of deep vein thrombosis (swelling of calf/thigh, redness, pain, tenderness). Monitor for signs and symptoms of pulmonary embolism (dyspnea, tachypnea, tachycardia). Collaborate with interdisciplinary team and initiate plans and interventions as needed Outcome: Progressing Problem: Daily Care Goal: Daily care needs are met Description: Assess and monitor ability to perform self care and identify potential discharge needs. Outcome: Progressing Problem: Potential for Infection Goal: Remains infection free Description: Assess and monitor vital signs, skin (color, moisture, integrity, turgor), respiratorystatus, urinary and gastrointestinal status, and labs (WBC, cultures). Administer antibiotics and antipyretics as ordered. Ensure aseptic care of all intravenous lines, invasive tubes/drains and wounds. Monitor for signs and symptoms of infection (redness, warmth, discharge, increased body temperature). Wash hands properly before and after each patient care activity. Follow isolation guidelines per hospital protocol/policy. Collaborate with interdisciplinary team and initiate plan and interventions as ordered. Outcome: Progressing Problem: Psychosocial Needs Goal: Demonstrates ability to cope with hospitalization/illness Description: Assess and monitor patients ability to cope with his/her illness. Outcome: Progressing Goal: Collaborate with patient/family/caregiver to identify patient specific goals for this hospitalization Outcome: Progressing Problem: Anxiety Goal: Anxiety is at manageable level Description: Assess and monitor patient's anxiety level. Monitor for signs and symptoms of anxiety both physical and emotional (heart palpitations, chest pain, shortness of breath, headaches, nausea,feeling jumpy, restlessness, irritable, apprehensive). Collaborate with interdisciplinary team and initiate plan and interventions as ordered. Outcome: Progressing Problem: Inadequate Coping Goal: Demonstrates ability to cope effectively Description: Patient is able to verbalize feelings related to emotional state. Outcome: Progressing Goal: Verbalizes adaptive coping mechanisms Description: Able to verbalize adaptive coping mechanisms such as physical activity, distraction, and deep breathing exercises. Outcome: Progressing Goal: Verbalizes personal strengths Description: Spend time with the patient using empathy and active listening skills. Outcome: Progressing Problem: Progressive Mobility Goal: BMAT Level 1 - With full mechanical lifting assistance: Outcome: Progressing Goal: BMAT Level 2 - With 2-person and/or mechanical lifting assistance: Outcome: Progressing Goal: BMAT Level 3 - With 1 to 2-person and/or mechanical lifting assistance: Outcome: Progressing Goal: BMAT Level 4 - With 1-person assistance or mobility aid as needed (walker, cane, crutches): Outcome: Progressing Problem: Discharge Barriers Goal: Patient's discharge needs are met Description: Collaborate with interdisciplinary team and initiate plans and interventions as needed. Outcome: Progressing Problem: Compromised Skin Integrity Goal: LTG - Patient will be free from infection Outcome: Progressing Goal: LTG - Patient will maintain/improve skin integrity through proper skin care techniques Outcome: Progressing Goal: LTG - Patient will demonstrate appropriate pressure relief techniques Outcome: Progressing Goal: LTG - Patient will demonstrate appropriate skin care techniques Outcome: Progressing Goal: LTG - Patient will be free from infection Outcome: Progressing Goal: STG - Patient demonstrates skin care/treatment/dressing change Outcome: Progressing Goal: STG - Patient will maintain good skin integrity Outcome: Progressing Goal: STG - Patient exhibits signs of wound healing. Outcome: Progressing Goal: STG - Patient demonstrates pressure reduction techniques Outcome: Progressing Goal: STG - Patient demonstrates preventative skin care measures Outcome: Progressing * Plan of Care - Alex ZuñigaFLORESITA - 01/10/2025 5:41 PM EDT Problem: Knowledge Deficit Goal: Patient/family/caregiver demonstrates understanding of disease process, treatment plan, medications, and discharge instructions Description: Complete learning assessment and assess knowledge base. Outcome: Progressing Problem: Potential for Falls Goal: Patient will remain free of falls Description: Assess and monitor vitals signs, neurological status including level of consciousness and orientation. Reassess fall risk per hospital policy. Ensure arm band on, uncluttered walking paths in room, adequate room lighting, call light and overbed table within reach, bed in low position, wheels locked, side rails up per policy, and non-skid footwear provided. Outcome: Progressing Problem: Risk for Falls Goal: No falls during hospitalization Description: Patient will not fall during hospitalization. Outcome: Progressing Problem: Knowledge Deficit Goal: Knowledge - personal safety Description: Patient will verbalize understanding of fall prevention. Outcome: Progressing Problem: Pain Goal: Patient's pain/discomfort is manageable Description: Assess and monitor patient's pain using appropriate pain scale. Collaborate with interdisciplinary team and initiate plan and interventions as ordered. Re-assess patient's pain level after pain management intervention. Outcome: Progressing Problem: Safety Goal: Patient will be injury free during hospitalization Description: Assess and monitor vitals signs, neurological status including level of consciousness and orientation. Assess patient's risk for falls and implement fall prevention plan of care and interventions per hospital policy. Ensure arm band on, uncluttered walking paths in room, adequate room lighting, call light and overbed table within reach, bed in low position, wheels locked, side rails up per policy, and non-skid footwear provided. Outcome: Progressing Problem: Potential for Developing a Blood Clot Goal: Tissue perfusion is adequate - venous Description: Assess and monitor skin color and temperature, skin integrity, pulses, capillary refill, edema, pain in extremities, Homans' sign, labs (D- dimer), and diagnostic tests (ultrasound, CT scan, VQ scan). Monitor for signs and symptoms of deep vein thrombosis (swelling of calf/thigh, redness, pain, tenderness). Monitor for signs and symptoms of pulmonary embolism (dyspnea, tachypnea, tachycardia). Collaborate with interdisciplinary team and initiate plans and interventions as needed Outcome: Progressing Problem: Daily Care Goal: Daily care needs are met Description: Assess and monitor ability to perform self care and identify potential discharge needs. Outcome: Progressing Problem: Potential for Infection Goal: Remains infection free Description: Assess and monitor vital signs, skin (color, moisture, integrity, turgor), respiratorystatus, urinary and gastrointestinal status, and labs (WBC, cultures). Administer antibiotics and antipyretics as ordered. Ensure aseptic care of all intravenous lines, invasive tubes/drains and wounds. Monitor for signs and symptoms of infection (redness, warmth, discharge, increased body temperature). Wash hands properly before and after each patient care activity. Follow isolation guidelines per hospital protocol/policy. Collaborate with interdisciplinary team and initiate plan and interventions as ordered. Outcome: Progressing Problem: Psychosocial Needs Goal: Demonstrates ability to cope with hospitalization/illness Description: Assess and monitor patients ability to cope with his/her illness. Outcome: Progressing Goal: Collaborate with patient/family/caregiver to identify patient specific goals for this hospitalization Outcome: Progressing Problem: Anxiety Goal: Anxiety is at manageable level Description: Assess and monitor patient's anxiety level. Monitor for signs and symptoms of anxiety both physical and emotional (heart palpitations, chest pain, shortness of breath, headaches, nausea,feeling jumpy, restlessness, irritable, apprehensive). Collaborate with interdisciplinary team and initiate plan and interventions as ordered. Outcome: Progressing Problem: Inadequate Coping Goal: Demonstrates ability to cope effectively Description: Patient is able to verbalize feelings related to emotional state. Outcome: Progressing Goal: Verbalizes adaptive coping mechanisms Description: Able to verbalize adaptive coping mechanisms such as physical activity, distraction, and deep breathing exercises. Outcome: Progressing Goal: Verbalizes personal strengths Description: Spend time with the patient using empathy and active listening skills. Outcome: Progressing Problem: Progressive Mobility Goal: BMAT Level 1 - With full mechanical lifting assistance: Outcome: Progressing Goal: BMAT Level 2 - With 2-person and/or mechanical lifting assistance: Outcome: Progressing Goal: BMAT Level 3 - With 1 to 2-person and/or mechanical lifting assistance: Outcome: Progressing Goal: BMAT Level 4 - With 1-person assistance or mobility aid as needed (walker, cane, crutches): Outcome: Progressing Problem: Discharge Barriers Goal: Patient's discharge needs are met Description: Collaborate with interdisciplinary team and initiate plans and interventions as needed. Outcome: Progressing Problem: Compromised Skin Integrity Goal: LTG - Patient will be free from infection Outcome: Progressing Goal: LTG - Patient will maintain/improve skin integrity through proper skin care techniques Outcome: Progressing Goal: LTG - Patient will demonstrate appropriate pressure relief techniques Outcome: Progressing Goal: LTG - Patient will demonstrate appropriate skin care techniques Outcome: Progressing Goal: LTG - Patient will be free from infection Outcome: Progressing Goal: STG - Patient demonstrates skin care/treatment/dressing change Outcome: Progressing Goal: STG - Patient will maintain good skin integrity Outcome: Progressing Goal: STG - Patient exhibits signs of wound healing. Outcome: Progressing Goal: STG - Patient demonstrates pressure reduction techniques Outcome: Progressing Goal: STG - Patient demonstrates preventative skin care measures Outcome: Progressing * Plan of Care - Sybil Cecilia - 01/10/2025 2:39 AM EDT Problem: Knowledge Deficit Goal: Patient/family/caregiver demonstrates understanding of disease process, treatment plan, medications, and discharge instructions Description: Complete learning assessment and assess knowledge base. Outcome: Progressing Problem: Potential for Falls Goal: Patient will remain free of falls Description: Assess and monitor vitals signs, neurological status including level of consciousness and orientation. Reassess fall risk per hospital policy. Ensure arm band on, uncluttered walking paths in room, adequate room lighting, call light and overbed table within reach, bed in low position, wheels locked, side rails up per policy, and non-skid footwear provided. Outcome: Progressing Problem: Risk for Falls Goal: No falls during hospitalization Description: Patient will not fall during hospitalization. Outcome: Progressing Problem: Knowledge Deficit Goal: Knowledge - personal safety Description: Patient will verbalize understanding of fall prevention. Outcome: Progressing Problem: Pain Goal: Patient's pain/discomfort is manageable Description: Assess and monitor patient's pain using appropriate pain scale. Collaborate with interdisciplinary team and initiate plan and interventions as ordered. Re-assess patient's pain level after pain management intervention. Outcome: Progressing Problem: Safety Goal: Patient will be injury free during hospitalization Description: Assess and monitor vitals signs, neurological status including level of consciousness and orientation. Assess patient's risk for falls and implement fall prevention plan of care and interventions per hospital policy. Ensure arm band on, uncluttered walking paths in room, adequate room lighting, call light and overbed table within reach, bed in low position, wheels locked, side rails up per policy, and non-skid footwear provided. Outcome: Progressing Problem: Potential for Developing a Blood Clot Goal: Tissue perfusion is adequate - venous Description: Assess and monitor skin color and temperature, skin integrity, pulses, capillary refill, edema, pain in extremities, Homans' sign, labs (D- dimer), and diagnostic tests (ultrasound, CT scan, VQ scan). Monitor for signs and symptoms of deep vein thrombosis (swelling of calf/thigh, redness, pain, tenderness). Monitor for signs and symptoms of pulmonary embolism (dyspnea, tachypnea, tachycardia). Collaborate with interdisciplinary team and initiate plans and interventions as needed Outcome: Progressing Problem: Daily Care Goal: Daily care needs are met Description: Assess and monitor ability to perform self care and identify potential discharge needs. Outcome: Progressing Problem: Potential for Infection Goal: Remains infection free Description: Assess and monitor vital signs, skin (color, moisture, integrity, turgor), respiratorystatus, urinary and gastrointestinal status, and labs (WBC, cultures). Administer antibiotics and antipyretics as ordered. Ensure aseptic care of all intravenous lines, invasive tubes/drains and wounds. Monitor for signs and symptoms of infection (redness, warmth, discharge, increased body temperature). Wash hands properly before and after each patient care activity. Follow isolation guidelines per hospital protocol/policy. Collaborate with interdisciplinary team and initiate plan and interventions as ordered. Outcome: Progressing Problem: Psychosocial Needs Goal: Demonstrates ability to cope with hospitalization/illness Description: Assess and monitor patients ability to cope with his/her illness. Outcome: Progressing Goal: Collaborate with patient/family/caregiver to identify patient specific goals for this hospitalization Outcome: Progressing Problem: Anxiety Goal: Anxiety is at manageable level Description: Assess and monitor patient's anxiety level. Monitor for signs and symptoms of anxiety both physical and emotional (heart palpitations, chest pain, shortness of breath, headaches, nausea,feeling jumpy, restlessness, irritable, apprehensive). Collaborate with interdisciplinary team andinitiate plan and interventions as ordered. Outcome: Progressing Problem: Inadequate Coping Goal: Demonstrates ability to cope effectively Description: Patient is able to verbalize feelings related to emotional state. Outcome: Progressing Goal: Verbalizes adaptive coping mechanisms Description: Able to verbalize adaptive coping mechanisms such as physical activity, distraction, and deep breathing exercises. Outcome: Progressing Goal: Verbalizes personal strengths Description: Spend time with the patient using empathy and active listening skills. Outcome: Progressing Problem: Progressive Mobility Goal: BMAT Level 1 - With full mechanical lifting assistance: Outcome: Progressing Goal: BMAT Level 2 - With 2-person and/or mechanical lifting assistance: Outcome: Progressing Goal: BMAT Level 3 - With 1 to 2-person and/or mechanical lifting assistance: Outcome: Progressing Goal: BMAT Level 4 - With 1-person assistance or mobility aid as needed (walker, cane, crutches): Outcome: Progressing Problem: Discharge Barriers Goal: Patient's discharge needs are met Description: Collaborate with interdisciplinary team and initiate plans and interventions as needed. Outcome: Progressing Problem: Compromised Skin Integrity Goal: LTG - Patient will be free from infection Outcome: Progressing Goal: LTG - Patient will maintain/improve skin integrity through proper skin care techniques Outcome: Progressing Goal: LTG - Patient will demonstrate appropriate pressure relief techniques Outcome: Progressing Goal: LTG - Patient will demonstrate appropriate skin care techniques Outcome: Progressing Goal: LTG - Patient will be free from infection Outcome: Progressing Goal: STG - Patient demonstrates skin care/treatment/dressing change Outcome: Progressing Goal: STG - Patient will maintain good skin integrity Outcome: Progressing Goal: STG - Patient exhibits signs of wound healing. Outcome: Progressing Goal: STG - Patient demonstrates pressure reduction techniques Outcome: Progressing Goal: STG - Patient demonstrates preventative skin care measures Outcome: Progressing * Plan of Care - Rosie Warren RN - 01/09/2025 9:50 AM EDT Problem: Knowledge Deficit Goal: Patient/family/caregiver demonstrates understanding of disease process, treatment plan, medications, and discharge instructions Description: Complete learning assessment and assess knowledge base. Outcome: Progressing Problem: Potential for Falls Goal: Patient will remain free of falls Description: Assess and monitor vitals signs, neurological status including level of consciousness and orientation. Reassess fall risk per hospital policy. Ensure arm band on, uncluttered walking paths in room, adequate room lighting, call light and overbed table within reach, bed in low position, wheels locked, side rails up per policy, and non-skid footwear provided. Outcome: Progressing Problem: Risk for Falls Goal: No falls during hospitalization Description: Patient will not fall during hospitalization. Outcome: Progressing Problem: Knowledge Deficit Goal: Knowledge - personal safety Description: Patient will verbalize understanding of fall prevention. Outcome: Progressing Problem: Pain Goal: Patient's pain/discomfort is manageable Description: Assess and monitor patient's pain using appropriate pain scale. Collaborate with interdisciplinary team and initiate plan and interventions as ordered. Re-assess patient's pain level after pain management intervention. Outcome: Progressing Problem: Safety Goal: Patient will be injury free during hospitalization Description: Assess and monitor vitals signs, neurological status including level of consciousness and orientation. Assess patient's risk for falls and implement fall prevention plan of care and interventions per hospital policy. Ensure arm band on, uncluttered walking paths in room, adequate room lighting, call light and overbed table within reach, bed in low position, wheels locked, side rails up per policy, and non-skid footwear provided. Outcome: Progressing Problem: Potential for Developing a Blood Clot Goal: Tissue perfusion is adequate - venous Description: Assess and monitor skin color and temperature, skin integrity, pulses, capillary refill, edema, pain in extremities, Homans' sign, labs (D- dimer), and diagnostic tests (ultrasound, CT scan, VQ scan). Monitor for signs and symptoms of deep vein thrombosis (swelling of calf/thigh, redness, pain, tenderness). Monitor for signs and symptoms of pulmonary embolism (dyspnea, tachypnea, tachycardia). Collaborate with interdisciplinary team and initiate plans and interventions as needed Outcome: Progressing Problem: Daily Care Goal: Daily care needs are met Description: Assess and monitor ability to perform self care and identify potential discharge needs. Outcome: Progressing Problem: Potential for Infection Goal: Remains infection free Description: Assess and monitor vital signs, skin (color, moisture, integrity, turgor), respiratorystatus, urinary and gastrointestinal status, and labs (WBC, cultures). Administer antibiotics and antipyretics as ordered. Ensure aseptic care of all intravenous lines, invasive tubes/drains and wounds. Monitor for signs and symptoms of infection (redness, warmth, discharge, increased body temperature). Wash hands properly before and after each patient care activity. Follow isolation guidelines per hospital protocol/policy. Collaborate with interdisciplinary team and initiate plan and interventions as ordered. Outcome: Progressing Problem: Psychosocial Needs Goal: Demonstrates ability to cope with hospitalization/illness Description: Assess and monitor patients ability to cope with his/her illness. Outcome: Progressing Goal: Collaborate with patient/family/caregiver to identify patient specific goals for this hospitalization Outcome: Progressing Problem: Anxiety Goal: Anxiety is at manageable level Description: Assess and monitor patient's anxiety level. Monitor for signs and symptoms of anxiety both physical and emotional (heart palpitations, chest pain, shortness of breath, headaches, nausea,feeling jumpy, restlessness, irritable, apprehensive). Collaborate with interdisciplinary team and initiate plan and interventions as ordered. Outcome: Progressing Problem: Inadequate Coping Goal: Demonstrates ability to cope effectively Description: Patient is able to verbalize feelings related to emotional state. Outcome: Progressing Goal: Verbalizes adaptive coping mechanisms Description: Able to verbalize adaptive coping mechanisms such as physical activity, distraction, and deep breathing exercises. Outcome: Progressing Goal: Verbalizes personal strengths Description: Spend time with the patient using empathy and active listening skills. Outcome: Progressing Problem: Progressive Mobility Goal: BMAT Level 1 - With full mechanical lifting assistance: Outcome: Progressing Goal: BMAT Level 2 - With 2-person and/or mechanical lifting assistance: Outcome: Progressing Goal: BMAT Level 3 - With 1 to 2-person and/or mechanical lifting assistance: Outcome: Progressing Goal: BMAT Level 4 - With 1-person assistance or mobility aid as needed (walker, cane, crutches): Outcome: Progressing Problem: Discharge Barriers Goal: Patient's discharge needs are met Description: Collaborate with interdisciplinary team and initiate plans and interventions as needed. Outcome: Progressing Problem: Compromised Skin Integrity Goal: LTG - Patient will be free from infection Outcome: Progressing Goal: LTG - Patient will maintain/improve skin integrity through proper skin care techniques Outcome: Progressing Goal: LTG - Patient will demonstrate appropriate pressure relief techniques Outcome: Progressing Goal: LTG - Patient will demonstrate appropriate skin care techniques Outcome: Progressing Goal: LTG - Patient will be free from infection Outcome: Progressing Goal: STG - Patient demonstrates skin care/treatment/dressing change Outcome: Progressing Goal: STG - Patient will maintain good skin integrity Outcome: Progressing Goal: STG - Patient exhibits signs of wound healing. Outcome: Progressing Goal: STG - Patient demonstrates pressure reduction techniques Outcome: Progressing Goal: STG - Patient demonstrates preventative skin care measures Outcome: Progressing * Plan of Care - Leslie Portillo RN - 01/08/2025 1:06 PM EDT Problem: Knowledge Deficit Goal: Patient/family/caregiver demonstrates understanding of disease process, treatment plan, medications, and discharge instructions Description: Complete learning assessment and assess knowledge base. Outcome: Progressing Problem: Potential for Falls Goal: Patient will remain free of falls Description: Assess and monitor vitals signs, neurological status including level of consciousness and orientation. Reassess fall risk per hospital policy. Ensure arm band on, uncluttered walking paths in room, adequate room lighting, call light and overbed table within reach, bed in low position, wheels locked, side rails up per policy, and non-skid footwear provided. Outcome: Progressing Problem: Risk for Falls Goal: No falls during hospitalization Description: Patient will not fall during hospitalization. Outcome: Progressing Problem: Knowledge Deficit Goal: Knowledge - personal safety Description: Patient will verbalize understanding of fall prevention. Outcome: Progressing Problem: Pain Goal: Patient's pain/discomfort is manageable Description: Assess and monitor patient's pain using appropriate pain scale. Collaborate with interdisciplinary team and initiate plan and interventions as ordered. Re-assess patient's pain level after pain management intervention. Outcome: Progressing Problem: Safety Goal: Patient will be injury free during hospitalization Description: Assess and monitor vitals signs, neurological status including level of consciousness and orientation. Assess patient's risk for falls and implement fall prevention plan of care and interventions per hospital policy. Ensure arm band on, uncluttered walking paths in room, adequate room lighting, call light and overbed table within reach, bed in low position, wheels locked, side rails up per policy, and non-skid footwear provided. Outcome: Progressing Problem: Potential for Developing a Blood Clot Goal: Tissue perfusion is adequate - venous Description: Assess and monitor skin color and temperature, skin integrity, pulses, capillary refill, edema, pain in extremities, Homans' sign, labs (D- dimer), and diagnostic tests (ultrasound, CT scan, VQ scan). Monitor for signs and symptoms of deep vein thrombosis (swelling of calf/thigh, redness, pain, tenderness). Monitor for signs and symptoms of pulmonary embolism (dyspnea, tachypnea, tachycardia). Collaborate with interdisciplinary team and initiate plans and interventions as needed Outcome: Progressing Problem: Daily Care Goal: Daily care needs are met Description: Assess and monitor ability to perform self care and identify potential discharge needs. Outcome: Progressing Problem: Potential for Infection Goal: Remains infection free Description: Assess and monitor vital signs, skin (color, moisture, integrity, turgor), respiratorystatus, urinary and gastrointestinal status, and labs (WBC, cultures). Administer antibiotics and antipyretics as ordered. Ensure aseptic care of all intravenous lines, invasive tubes/drains and wounds. Monitor for signs and symptoms of infection (redness, warmth, discharge, increased body temperature). Wash hands properly before and after each patient care activity. Follow isolation guidelines per hospital protocol/policy. Collaborate with interdisciplinary team and initiate plan and interventions as ordered. Outcome: Progressing Problem: Psychosocial Needs Goal: Demonstrates ability to cope with hospitalization/illness Description: Assess and monitor patients ability to cope with his/her illness. Outcome: Progressing Goal: Collaborate with patient/family/caregiver to identify patient specific goals for this hospitalization Outcome: Progressing Problem: Anxiety Goal: Anxiety is at manageable level Description: Assess and monitor patient's anxiety level. Monitor for signs and symptoms of anxiety both physical and emotional (heart palpitations, chest pain, shortness of breath, headaches, nausea,feeling jumpy, restlessness, irritable, apprehensive). Collaborate with interdisciplinary team and initiate plan and interventions as ordered. Outcome: Progressing Problem: Inadequate Coping Goal: Demonstrates ability to cope effectively Description: Patient is able to verbalize feelings related to emotional state. Outcome: Progressing Goal: Verbalizes adaptive coping mechanisms Description: Able to verbalize adaptive coping mechanisms such as physical activity, distraction, and deep breathing exercises. Outcome: Progressing Goal: Verbalizes personal strengths Description: Spend time with the patient using empathy and active listening skills. Outcome: Progressing Problem: Progressive Mobility Goal: BMAT Level 1 - With full mechanical lifting assistance: Outcome: Progressing Goal: BMAT Level 2 - With 2-person and/or mechanical lifting assistance: Outcome: Progressing Goal: BMAT Level 3 - With 1 to 2-person and/or mechanical lifting assistance: Outcome: Progressing Goal: BMAT Level 4 - With 1-person assistance or mobility aid as needed (walker, cane, crutches): Outcome: Progressing Problem: Discharge Barriers Goal: Patient's discharge needs are met Description: Collaborate with interdisciplinary team and initiate plans and interventions as needed. Outcome: Progressing Problem: Compromised Skin Integrity Goal: LTG - Patient will be free from infection Outcome: Progressing Goal: LTG - Patient will maintain/improve skin integrity through proper skin care techniques Outcome: Progressing Goal: LTG - Patient will demonstrate appropriate pressure relief techniques Outcome: Progressing Goal: LTG - Patient will demonstrate appropriate skin care techniques Outcome: Progressing Goal: LTG - Patient will be free from infection Outcome: Progressing Goal: STG - Patient demonstrates skin care/treatment/dressing change Outcome: Progressing Goal: STG - Patient will maintain good skin integrity Outcome: Progressing Goal: STG - Patient exhibits signs of wound healing. Outcome: Progressing Goal: STG - Patient demonstrates pressure reduction techniques Outcome: Progressing Goal: STG - Patient demonstrates preventative skin care measures Outcome: Progressing * Plan of Care - Jennifer Smith RN - 01/07/2025 9:38 AM EDT Problem: Knowledge Deficit Goal: Patient/family/caregiver demonstrates understanding of disease process, treatment plan, medications, and discharge instructions Description: Complete learning assessment and assess knowledge base. Outcome: Progressing Problem: Potential for Falls Goal: Patient will remain free of falls Description: Assess and monitor vitals signs, neurological status including level of consciousness and orientation. Reassess fall risk per hospital policy. Ensure arm band on, uncluttered walking paths in room, adequate room lighting, call light and overbed table within reach, bed in low position, wheels locked, side rails up per policy, and non-skid footwear provided. Outcome: Progressing Problem: Risk for Falls Goal: No falls during hospitalization Description: Patient will not fall during hospitalization. Outcome: Progressing Problem: Knowledge Deficit Goal: Knowledge - personal safety Description: Patient will verbalize understanding of fall prevention. Outcome: Progressing Problem: Pain Goal: Patient's pain/discomfort is manageable Description: Assess and monitor patient's pain using appropriate pain scale. Collaborate with interdisciplinary team and initiate plan and interventions as ordered. Re-assess patient's pain level after pain management intervention. Outcome: Progressing Problem: Safety Goal: Patient will be injury free during hospitalization Description: Assess and monitor vitals signs, neurological status including level of consciousness and orientation. Assess patient's risk for falls and implement fall prevention plan of care and interventions per hospital policy. Ensure arm band on, uncluttered walking paths in room, adequate room lighting, call light and overbed table within reach, bed in low position, wheels locked, side rails up per policy, and non-skid footwear provided. Outcome: Progressing Problem: Potential for Developing a Blood Clot Goal: Tissue perfusion is adequate - venous Description: Assess and monitor skin color and temperature, skin integrity, pulses, capillary refill, edema, pain in extremities, Homans' sign, labs (D- dimer), and diagnostic tests (ultrasound, CT scan, VQ scan). Monitor for signs and symptoms of deep vein thrombosis (swelling of calf/thigh, redness, pain, tenderness). Monitor for signs and symptoms of pulmonary embolism (dyspnea, tachypnea, tachycardia). Collaborate with interdisciplinary team and initiate plans and interventions as needed Outcome: Progressing Problem: Daily Care Goal: Daily care needs are met Description: Assess and monitor ability to perform self care and identify potential discharge needs. Outcome: Progressing Problem: Potential for Infection Goal: Remains infection free Description: Assess and monitor vital signs, skin (color, moisture, integrity, turgor), respiratorystatus, urinary and gastrointestinal status, and labs (WBC, cultures). Administer antibiotics and antipyretics as ordered. Ensure aseptic care of all intravenous lines, invasive tubes/drains and wounds. Monitor for signs and symptoms of infection (redness, warmth, discharge, increased body temperature). Wash hands properly before and after each patient care activity. Follow isolation guidelines per hospital protocol/policy. Collaborate with interdisciplinary team and initiate plan and interventions as ordered. Outcome: Progressing Problem: Psychosocial Needs Goal: Demonstrates ability to cope with hospitalization/illness Description: Assess and monitor patients ability to cope with his/her illness. Outcome: Progressing Goal: Collaborate with patient/family/caregiver to identify patient specific goals for this hospitalization Outcome: Progressing Problem: Anxiety Goal: Anxiety is at manageable level Description: Assess and monitor patient's anxiety level. Monitor for signs and symptoms of anxiety both physical and emotional (heart palpitations, chest pain, shortness of breath, headaches, nausea,feeling jumpy, restlessness, irritable, apprehensive). Collaborate with interdisciplinary team and initiate plan and interventions as ordered. Outcome: Progressing Problem: Inadequate Coping Goal: Demonstrates ability to cope effectively Description: Patient is able to verbalize feelings related to emotional state. Outcome: Progressing Goal: Verbalizes adaptive coping mechanisms Description: Able to verbalize adaptive coping mechanisms such as physical activity, distraction, and deep breathing exercises. Outcome: Progressing Goal: Verbalizes personal strengths Description: Spend time with the patient using empathy and active listening skills. Outcome: Progressing Problem: Progressive Mobility Goal: BMAT Level 1 - With full mechanical lifting assistance: Outcome: Progressing Goal: BMAT Level 2 - With 2-person and/or mechanical lifting assistance: Outcome: Progressing Goal: BMAT Level 3 - With 1 to 2-person and/or mechanical lifting assistance: Outcome: Progressing Goal: BMAT Level 4 - With 1-person assistance or mobility aid as needed (walker, cane, crutches): Outcome: Progressing Problem: Discharge Barriers Goal: Patient's discharge needs are met Description: Collaborate with interdisciplinary team and initiate plans and interventions as needed. Outcome: Progressing Problem: Compromised Skin Integrity Goal: LTG - Patient will be free from infection Outcome: Progressing Goal: LTG - Patient will maintain/improve skin integrity through proper skin care techniques Outcome: Progressing Goal: LTG - Patient will demonstrate appropriate pressure relief techniques Outcome: Progressing Goal: LTG - Patient will demonstrate appropriate skin care techniques Outcome: Progressing Goal: LTG - Patient will be free from infection Outcome: Progressing Goal: STG - Patient demonstrates skin care/treatment/dressing change Outcome: Progressing Goal: STG - Patient will maintain good skin integrity Outcome: Progressing Goal: STG - Patient exhibits signs of wound healing. Outcome: Progressing Goal: STG - Patient demonstrates pressure reduction techniques Outcome: Progressing Goal: STG - Patient demonstrates preventative skin care measures Outcome: Progressing * Plan of Care - Agnes Holden RN - 01/06/2025 11:43 PM EDT Problem: Knowledge Deficit Goal: Patient/family/caregiver demonstrates understanding of disease process, treatment plan, medications, and discharge instructions Description: Complete learning assessment and assess knowledge base. Outcome: Progressing Problem: Potential for Falls Goal: Patient will remain free of falls Description: Assess and monitor vitals signs, neurological status including level of consciousness and orientation. Reassess fall risk per hospital policy. Ensure arm band on, uncluttered walking paths in room, adequate room lighting, call light and overbed table within reach, bed in low position, wheels locked, side rails up per policy, and non-skid footwear provided. Outcome: Progressing Problem: Risk for Falls Goal: No falls during hospitalization Description: Patient will not fall during hospitalization. Outcome: Progressing Problem: Knowledge Deficit Goal: Knowledge - personal safety Description: Patient will verbalize understanding of fall prevention. Outcome: Progressing Problem: Pain Goal: Patient's pain/discomfort is manageable Description: Assess and monitor patient's pain using appropriate pain scale. Collaborate with interdisciplinary team and initiate plan and interventions as ordered. Re-assess patient's pain level after pain management intervention. Outcome: Progressing Problem: Safety Goal: Patient will be injury free during hospitalization Description: Assess and monitor vitals signs, neurological status including level of consciousness and orientation. Assess patient's risk for falls and implement fall prevention plan of care and interventions per hospital policy. Ensure arm band on, uncluttered walking paths in room, adequate room lighting, call light and overbed table within reach, bed in low position, wheels locked, side rails up per policy, and non-skid footwear provided. Outcome: Progressing Problem: Potential for Developing a Blood Clot Goal: Tissue perfusion is adequate - venous Description: Assess and monitor skin color and temperature, skin integrity, pulses, capillary refill, edema, pain in extremities, Homans' sign, labs (D- dimer), and diagnostic tests (ultrasound, CT scan, VQ scan). Monitor for signs and symptoms of deep vein thrombosis (swelling of calf/thigh, redness, pain, tenderness). Monitor for signs and symptoms of pulmonary embolism (dyspnea, tachypnea, tachycardia). Collaborate with interdisciplinary team and initiate plans and interventions as needed Outcome: Progressing Problem: Daily Care Goal: Daily care needs are met Description: Assess and monitor ability to perform self care and identify potential discharge needs. Outcome: Progressing Problem: Potential for Infection Goal: Remains infection free Description: Assess and monitor vital signs, skin (color, moisture, integrity, turgor), respiratorystatus, urinary and gastrointestinal status, and labs (WBC, cultures). Administer antibiotics and antipyretics as ordered. Ensure aseptic care of all intravenous lines, invasive tubes/drains and wounds. Monitor for signs and symptoms of infection (redness, warmth, discharge, increased body temperature). Wash hands properly before and after each patient care activity. Follow isolation guidelines per hospital protocol/policy. Collaborate with interdisciplinary team and initiate plan and interventions as ordered. Outcome: Progressing Problem: Psychosocial Needs Goal: Demonstrates ability to cope with hospitalization/illness Description: Assess and monitor patients ability to cope with his/her illness. Outcome: Progressing Goal: Collaborate with patient/family/caregiver to identify patient specific goals for this hospitalization Outcome: Progressing Problem: Anxiety Goal: Anxiety is at manageable level Description: Assess and monitor patient's anxiety level. Monitor for signs and symptoms of anxiety both physical and emotional (heart palpitations, chest pain, shortness of breath, headaches, nausea,feeling jumpy, restlessness, irritable, apprehensive). Collaborate with interdisciplinary team and initiate plan and interventions as ordered. Outcome: Progressing Problem: Inadequate Coping Goal: Demonstrates ability to cope effectively Description: Patient is able to verbalize feelings related to emotional state. Outcome: Progressing Goal: Verbalizes adaptive coping mechanisms Description: Able to verbalize adaptive coping mechanisms such as physical activity, distraction, and deep breathing exercises. Outcome: Progressing Goal: Verbalizes personal strengths Description: Spend time with the patient using empathy and active listening skills. Outcome: Progressing Problem: Progressive Mobility Goal: BMAT Level 1 - With full mechanical lifting assistance: Outcome: Progressing Goal: BMAT Level 2 - With 2-person and/or mechanical lifting assistance: Outcome: Progressing Goal: BMAT Level 3 - With 1 to 2-person and/or mechanical lifting assistance: Outcome: Progressing Goal: BMAT Level 4 - With 1-person assistance or mobility aid as needed (walker, cane, crutches): Outcome: Progressing Problem: Discharge Barriers Goal: Patient's discharge needs are met Description: Collaborate with interdisciplinary team and initiate plans and interventions as needed. Outcome: Progressing Problem: Compromised Skin Integrity Goal: LTG - Patient will be free from infection Outcome: Progressing Goal: LTG - Patient will maintain/improve skin integrity through proper skin care techniques Outcome: Progressing Goal: LTG - Patient will demonstrate appropriate pressure relief techniques Outcome: Progressing Goal: LTG - Patient will demonstrate appropriate skin care techniques Outcome: Progressing Goal: LTG - Patient will be free from infection Outcome: Progressing Goal: STG - Patient demonstrates skin care/treatment/dressing change Outcome: Progressing Goal: STG - Patient will maintain good skin integrity Outcome: Progressing Goal: STG - Patient exhibits signs of wound healing. Outcome: Progressing Goal: STG - Patient demonstrates pressure reduction techniques Outcome: Progressing Goal: STG - Patient demonstrates preventative skin care measures Outcome: Progressing * ACP (Advance Care Planning) - Chaplain Pete - 01/06/2025 10:42 AM EDT Completed Living Will with Mr. Douglas; He named his aunt, Yahaira Cabrera, as his Primary Health Care Surrogate Gave original and copies to Mr. Douglas Placed copy in paper chart Scanned copy into EMR * Plan of Care - Annalee Kelley RN - 01/06/2025 7:39 AM EDT Problem: Knowledge Deficit Goal: Patient/family/caregiver demonstrates understanding of disease process, treatment plan, medications, and discharge instructions Description: Complete learning assessment and assess knowledge base. Outcome: Progressing Problem: Potential for Falls Goal: Patient will remain free of falls Description: Assess and monitor vitals signs, neurological status including level of consciousness and orientation. Reassess fall risk per hospital policy. Ensure arm band on, uncluttered walking paths in room, adequate room lighting, call light and overbed table within reach, bed in low position, wheels locked, side rails up per policy, and non-skid footwear provided. Outcome: Progressing Problem: Risk for Falls Goal: No falls during hospitalization Description: Patient will not fall during hospitalization. Outcome: Progressing Problem: Knowledge Deficit Goal: Knowledge - personal safety Description: Patient will verbalize understanding of fall prevention. Outcome: Progressing Problem: Pain Goal: Patient's pain/discomfort is manageable Description: Assess and monitor patient's pain using appropriate pain scale. Collaborate with interdisciplinary team and initiate plan and interventions as ordered. Re-assess patient's pain level after pain management intervention. Outcome: Progressing Problem: Safety Goal: Patient will be injury free during hospitalization Description: Assess and monitor vitals signs, neurological status including level of consciousness and orientation. Assess patient's risk for falls and implement fall prevention plan of care and interventions per hospital policy. Ensure arm band on, uncluttered walking paths in room, adequate room lighting, call light and overbed table within reach, bed in low position, wheels locked, side rails up per policy, and non-skid footwear provided. Outcome: Progressing Problem: Potential for Developing a Blood Clot Goal: Tissue perfusion is adequate - venous Description: Assess and monitor skin color and temperature, skin integrity, pulses, capillary refill, edema, pain in extremities, Homans' sign, labs (D- dimer), and diagnostic tests (ultrasound, CT scan, VQ scan). Monitor for signs and symptoms of deep vein thrombosis (swelling of calf/thigh, redness, pain, tenderness). Monitor for signs and symptoms of pulmonary embolism (dyspnea, tachypnea, tachycardia). Collaborate with interdisciplinary team and initiate plans and interventions as needed Outcome: Progressing Problem: Daily Care Goal: Daily care needs are met Description: Assess and monitor ability to perform self care and identify potential discharge needs. Outcome: Progressing Problem: Potential for Infection Goal: Remains infection free Description: Assess and monitor vital signs, skin (color, moisture, integrity, turgor), respiratorystatus, urinary and gastrointestinal status, and labs (WBC, cultures). Administer antibiotics and antipyretics as ordered. Ensure aseptic care of all intravenous lines, invasive tubes/drains and wounds. Monitor for signs and symptoms of infection (redness, warmth, discharge, increased body temperature). Wash hands properly before and after each patient care activity. Follow isolation guidelines per hospital protocol/policy. Collaborate with interdisciplinary team and initiate plan and interventions as ordered. Outcome: Progressing Problem: Psychosocial Needs Goal: Demonstrates ability to cope with hospitalization/illness Description: Assess and monitor patients ability to cope with his/her illness. Outcome: Progressing Goal: Collaborate with patient/family/caregiver to identify patient specific goals for this hospitalization Outcome: Progressing Problem: Anxiety Goal: Anxiety is at manageable level Description: Assess and monitor patient's anxiety level. Monitor for signs and symptoms of anxiety both physical and emotional (heart palpitations, chest pain, shortness of breath, headaches, nausea,feeling jumpy, restlessness, irritable, apprehensive). Collaborate with interdisciplinary team and initiate plan and interventions as ordered. Outcome: Progressing Problem: Inadequate Coping Goal: Demonstrates ability to cope effectively Description: Patient is able to verbalize feelings related to emotional state. Outcome: Progressing Goal: Verbalizes adaptive coping mechanisms Description: Able to verbalize adaptive coping mechanisms such as physical activity, distraction, and deep breathing exercises. Outcome: Progressing Goal: Verbalizes personal strengths Description: Spend time with the patient using empathy and active listening skills. Outcome: Progressing Problem: Progressive Mobility Goal: BMAT Level 1 - With full mechanical lifting assistance: Outcome: Progressing Goal: BMAT Level 2 - With 2-person and/or mechanical lifting assistance: Outcome: Progressing Goal: BMAT Level 3 - With 1 to 2-person and/or mechanical lifting assistance: Outcome: Progressing Goal: BMAT Level 4 - With 1-person assistance or mobility aid as needed (walker, cane, crutches): Outcome: Progressing Problem: Discharge Barriers Goal: Patient's discharge needs are met Description: Collaborate with interdisciplinary team and initiate plans and interventions as needed. Outcome: Progressing * Plan of Care - Agnes Holden RN - 01/06/2025 2:41 AM EDT Problem: Knowledge Deficit Goal: Patient/family/caregiver demonstrates understanding of disease process, treatment plan, medications, and discharge instructions Description: Complete learning assessment and assess knowledge base. Outcome: Progressing Problem: Potential for Falls Goal: Patient will remain free of falls Description: Assess and monitor vitals signs, neurological status including level of consciousness and orientation. Reassess fall risk per hospital policy. Ensure arm band on, uncluttered walking paths in room, adequate room lighting, call light and overbed table within reach, bed in low position, wheels locked, side rails up per policy, and non-skid footwear provided. Outcome: Progressing Problem: Risk for Falls Goal: No falls during hospitalization Description: Patient will not fall during hospitalization. Outcome: Progressing Problem: Knowledge Deficit Goal: Knowledge - personal safety Description: Patient will verbalize understanding of fall prevention. Outcome: Progressing Problem: Pain Goal: Patient's pain/discomfort is manageable Description: Assess and monitor patient's pain using appropriate pain scale. Collaborate with interdisciplinary team and initiate plan and interventions as ordered. Re-assess patient's pain level after pain management intervention. Outcome: Progressing Problem: Safety Goal: Patient will be injury free during hospitalization Description: Assess and monitor vitals signs, neurological status including level of consciousness and orientation. Assess patient's risk for falls and implement fall prevention plan of care and interventions per hospital policy. Ensure arm band on, uncluttered walking paths in room, adequate room lighting, call light and overbed table within reach, bed in low position, wheels locked, side rails up per policy, and non-skid footwear provided. Outcome: Progressing Problem: Potential for Developing a Blood Clot Goal: Tissue perfusion is adequate - venous Description: Assess and monitor skin color and temperature, skin integrity, pulses, capillary refill, edema, pain in extremities, Homans' sign, labs (D- dimer), and diagnostic tests (ultrasound, CT scan, VQ scan). Monitor for signs and symptoms of deep vein thrombosis (swelling of calf/thigh, redness, pain, tenderness). Monitor for signs and symptoms of pulmonary embolism (dyspnea, tachypnea, tachycardia). Collaborate with interdisciplinary team and initiate plans and interventions as needed Outcome: Progressing Problem: Daily Care Goal: Daily care needs are met Description: Assess and monitor ability to perform self care and identify potential discharge needs. Outcome: Progressing Problem: Potential for Infection Goal: Remains infection free Description: Assess and monitor vital signs, skin (color, moisture, integrity, turgor), respiratorystatus, urinary and gastrointestinal status, and labs (WBC, cultures). Administer antibiotics and antipyretics as ordered. Ensure aseptic care of all intravenous lines, invasive tubes/drains and wounds. Monitor for signs and symptoms of infection (redness, warmth, discharge, increased body temperature). Wash hands properly before and after each patient care activity. Follow isolation guidelines per hospital protocol/policy. Collaborate with interdisciplinary team and initiate plan and interventions as ordered. Outcome: Progressing Problem: Psychosocial Needs Goal: Demonstrates ability to cope with hospitalization/illness Description: Assess and monitor patients ability to cope with his/her illness. Outcome: Progressing Goal: Collaborate with patient/family/caregiver to identify patient specific goals for this hospitalization Outcome: Progressing Problem: Anxiety Goal: Anxiety is at manageable level Description: Assess and monitor patient's anxiety level. Monitor for signs and symptoms of anxiety both physical and emotional (heart palpitations, chest pain, shortness of breath, headaches, nausea,feeling jumpy, restlessness, irritable, apprehensive). Collaborate with interdisciplinary team and initiate plan and interventions as ordered. Outcome: Progressing Problem: Inadequate Coping Goal: Demonstrates ability to cope effectively Description: Patient is able to verbalize feelings related to emotional state. Outcome: Progressing Goal: Verbalizes adaptive coping mechanisms Description: Able to verbalize adaptive coping mechanisms such as physical activity, distraction, and deep breathing exercises. Outcome: Progressing Goal: Verbalizes personal strengths Description: Spend time with the patient using empathy and active listening skills. Outcome: Progressing Problem: Progressive Mobility Goal: BMAT Level 1 - With full mechanical lifting assistance: Outcome: Progressing Goal: BMAT Level 2 - With 2-person and/or mechanical lifting assistance: Outcome: Progressing Goal: BMAT Level 3 - With 1 to 2-person and/or mechanical lifting assistance: Outcome: Progressing Goal: BMAT Level 4 - With 1-person assistance or mobility aid as needed (walker, cane, crutches): Outcome: Progressing Problem: Discharge Barriers Goal: Patient's discharge needs are met Description: Collaborate with interdisciplinary team and initiate plans and interventions as needed. Outcome: Progressing documented in this encounter Plan of Treatment Not on file documented as of this encounter Procedures Procedure Name Priority Date/Time Associated Diagnosis Comments NOVA GLUCOSE POC Routine 01/15/2025 10:2 8 AM EDT FS_MODEL_IP_ECG 12-LEAD Routine 01/14/2025 8:35 PM EDT CBC W/ AUTO DIFF Routine 01/14/2025 3:46 AM EDT MANUAL DIFFERENTIAL Routine 01/14/2025 3 :46 AM EDT BASIC METABOLIC PANEL Routine 01/14/2025 3:46 AM EDT IRON AND TIBC Add-On 01/13/2025 3:44 AM EDT PHOSPHORUS Routine 01/13/2025 3:44 AM EDT MAGNESIUM Routine 01/13/2025 3:44 AM EDT BASIC METABOLIC PANEL Routine 01/13/2025 3:[address] BRAIN WITHOUT IV CONTRAST STAT 01/12/2025 1:38 PM EDT PHOSPHORUS Routine 01/12/2025 3:22 AM EDT MAGNESIUM Routine 01/12/2025 3:22 AM EDT BASIC METABOLIC PANEL Routine 01/12/2025 3:22 AM EDT CBC W/ AUTO DIFF Routine 01/11/2025 2:53 AM EDT MANUAL DIFFERENTIAL Routine 01/11/2025 2 :53 AM EDT PHOSPHORUS Routine 01/11/2025 2:53 AM EDT MAGNESIUM Routine 01/11/2025 2:53 AM EDT COMPREHENSIVE METABOLIC PANEL Routine 01/11/2025 2:53 AM EDT CBC W/ AUTO DIFF Routine 01/10/2025 3:36 AM EDT MANUAL DIFFERENTIAL Routine 01/10/2025 3 :36 AM EDT PHOSPHORUS Routine 01/10/2025 3:36 AM EDT MAGNESIUM Routine 01/10/2025 3:36 AM EDT COMPREHENSIVE METABOLIC PANEL Routine 01/10/2025 3:36 AM EDT FS_MODEL_IP_ECG 12-LEAD STAT 01/09/2025 7:04 PM EDT NOVA GLUCOSE POC Routine 01/09/2025 4:27 PM EDT FS_MODEL_IP_ECG 12-LEAD Routine 01/09/2025 8:40 AM EDT CBC HEMOGRAM (SJ-BKR) Routine 01/09/2025 2:22 AM EDT COMPREHENSIVE METABOLIC PANEL Routine 01/09/2025 2:22 AM EDT NOVA GLUCOSE POC Routine 01/08/2025 4:45 PM EDT NOVA GLUCOSE POC Routine 01/08/2025 11:2 3 AM EDT COMPREHENSIVE METABOLIC PANEL Routine 01/08/2025 1:59 AM EDT CBC HEMOGRAM (-BKR) Routine 01/08/2025 1:58 AM EDT NOVA GLUCOSE POC Routine 01/07/2025 3:52 PM EDT NOVA GLUCOSE POC Routine 01/07/2025 11:5 8 AM EDT [facility] CBC SCAN Routine 01/07/2025 3:03 AM EDT CBC HEMOGRAM (-BKR) STAT 01/07/2025 3:03 AM EDT PHOSPHORUS Add-On 01/07/2025 3:03 AM EDT COMPREHENSIVE METABOLIC PANEL Routine 01/07/2025 3:03 AM EDT FS_MODEL_IP_ECG 12-LEAD Routine 01/06/2025 8:34 PM EDT HEMOGLOBIN AND HEMATOCRIT STAT 01/06/2025 6:09 PM EDT NOVA GLUCOSE POC Routine 01/06/2025 6:02 PM EDT NOVA GLUCOSE POC Routine 01/06/2025 5:59 PM EDT HEMOGLOBIN AND HEMATOCRIT STAT 01/06/2025 12:54 PM EDT PHOSPHORUS Routine 01/06/2025 12:54 PM EDT NOVA GLUCOSE POC Routine 01/06/2025 11:[address] BRAIN WITHOUT IV CONTRAST Routine 01/06/2025 5:18 AM EDT CBC W/ AUTO DIFF STAT 01/06/2025 4:17 AM EDT LACTIC ACID WITH REFLEX Routine 01/06/2025 4:17 AM EDT PHOSPHORUS Routine 01/06/2025 4:17 AM EDT MAGNESIUM Routine 01/06/2025 4:17 AM EDT CREATINE KINASE (CK) Add-On 01/06/2025 4:17 AM EDT COMPREHENSIVE METABOLIC PANEL STAT 01/06/2025 4:17 AM EDT CBC HEMOGRAM (SJ-BKR) Routine 01/06/2025 1:35 AM EDT NOVA GLUCOSE POC Routine 01/05/2025 11:1 1 PM EDT FS_MODEL_IP_TRANSFUSE PHERESED PLATELETS Routine 01/05/2025 10:50 PM EDT FS_MODEL_IP_TRANSFUSE PHERESED PLATELETS Routine 01/05/2025 10:14 PM EDT HEMOGLOBIN AND HEMATOCRIT STAT 01/05/2025 9:47 PM EDT PT/INR, PTT STAT 01/05/2025 8:39 PM EDT TYPE AND SCREEN ([place] BKR) STAT 01/05/2025 8:39 PM EDT FS_MODEL_IP_PREPARE PLATELET PHERESIS STAT 01/05/2025 7:[address] BRAIN WITHOUT IV CONTRAST STAT 01/05/2025 6:51 PM EDT [facility] CBC SCAN Routine 01/05/2025 6:32 PM EDT CBC W/ AUTO DIFF STAT 01/05/2025 6:32 PM EDT ABO/RH CONFIRMATION/RETYPE ([place] BKR) STAT 01/05/2025 6:32 PM EDT MAGNESIUM Add-On 01/05/2025 6:32 PM EDT ETHANOL STAT 01/05/2025 6:32 PM EDT ACETAMINOPHEN LEVEL STAT 01/05/2025 6 :32 PM EDT SALICYLATE LEVEL STAT 01/05/2025 6:32 PM EDT COMPREHENSIVE METABOLIC PANEL STAT 01/05/2025 6:32 PM EDT FS_[facility]L CRITICAL CARE Routine 01/05/2025 6:18 PM EDT FS_MODEL_IP_ECG 12-LEAD Routine 01/05/2025 6:11 PM EDT EKG-SCANNED 01/05/2025 EKG-SCANNED 01/05/2025 EKG-SCANNED 01/05/2025 documented in this encounter Results * (ABNORMAL) Glucose, Nova Meter (01/15/2025 10:28 AM EDT) [facility] POC-GLUCOSE 135(H) 70 - 110 mg/dL 01/15/2025 10:30 AM EDT [facility] Comment: In the event of poor peripheral blood flow, venous or arterial blood should be used due to the potential of erroneous results. Notified Nurse RBV Coroner Forensic Technician [phone] 01/15/2025 10:30 AM EDT [facility] Blood WHOLE BLOOD / Unknown 01/15/2025 10:28 AM EDT 01/15/2025 10:29 AM EDT Narrative [facility] - 01/15/2025 10:30 AM EDT Coroner Forensic Technician ID is - [id number] Michael Haque MD POINT OF CARE TEST ORDERABLES Final Result Performing Organization Address [facility] Co de Phone Number [facility] [address] [phone] * ECG 12 lead (01/14/2025 8:35 PM EDT) VENTRICULAR RATE EKG/MIN 56 BPM GE MUSE ATRIAL RATE (MCT) 56 BPM GE MUSE MA Interval 164 ms GE MUSE QRS-INTERVAL (MSEC) 82 ms GE MUSE QT Interval 452 ms GE MUSE QTC Interval 436 ms GE MUSE R AXIS (MCT) 31 degrees GE MUSE T Wave [place] 22 degrees GE MUSE [place] Diagnosis Sinus bradycardia Otherwise normal ECG When compared with ECG of 09-JAN-2025 19:04, No significant change was found Confirmed by Ayse DAWSON, YENY ([id number]) on 01/18/2025 6:54:40 PM GE MUSE 01/14/2025 8:35 PM EDT 01/18/2025 6:54 PM EDT us Michel Leo MD ECG ORDERABLES Final Result Performing Organization Address City/[facility]/ZIP Co de Phone Number GE MUSE * (ABNORMAL) Manual Differential (01/14/2025 3:46 AM EDT) Total Counted 100 01/14/2025 6:03 AM EDT [facility] % Neutros (manual) 57 50 - 65 % 01/14/2025 6:03 AM EDT [facility] % Lymphs (manual) 21(L) 24 - 44 % 025 6:03 AM EDT [facility] % Monos (manual) 18(H) 4 - 5 % 01/15/20 25 6:03 AM EDT [facility] % Eos (manual) 3 0 - 3 % 01/14/2025 6:03 AM EDT [facility] % Baso (manual) 1 0 - 1 % 6:03 AM EDT [facility] RBC Morphology abnormal( A) Normal 01/14/2025 6:03 AM EDT [facility] Platelet Estimate Increased (A) Adequate 01/14/2025 6:03 AM EDT [facility] Anisocytosis 1+ 01/14/2025 6:03 AM EDT [facility] Hypochromia 1+ 01/14/2025 6:03 AM EDT [facility] Polychromasia 1+ 01/14/2025 6:03 AM EDT [facility] Macrocytes 1+ 01/14/2025 6:03 AM EDT [facility] Ovalocytes 1+ 01/14/2025 6:03 AM EDT [facility] # Neutrophils (manual) 3.02 K/ L 01/14/2025 6:03 AM EDT [facility] Blood Venipuncture / Unknown 01/14/2025 3:46 AM EDT 01/14/2025 4:39 AM EDT us Carlee Sutton MD LAB BLOOD ORDERABLES Final Re sult [facility] [address] [phone] * (ABNORMAL) Basic Metabolic Panel (01/14/2025 3:46 AM EDT) Sodium 141 136 - 145 meq/L 01/14/2025 5:09 AM EDT [facility] Potassium 3.8 3.4 - 5.1 meq/L 01/14/2025 5:09 AM EDT [facility] CO2 22 22 - 29 meq/L 01/14/2025 5:09 AM EDT [facility] Chloride 105 98 - 112 meq/L 01/14/2025 5:09 AM EDT [facility] Glucose 85 74 - 100 mg/dL 01/14/2025 5:09 AM EDT [facility] BUN 25.2 8.4 - 25.7 mg/dL 01/14/2025 5:09 AM EDT [facility] Creatinine 0.83 0.72 - 1.25 mg/dL 01/14/2025 5:09 AM EDT [facility] BUN/Creatinine 30(H) 8 - 20 01/14/2025 5:09 AM EDT [facility] Calcium 9.5 8.4 - 10.2 mg/dL 01/14/2025 5:09 AM EDT [facility] Anion Gap 18(H) 4 - 12 01/14/2025 5:09 AM EDT [facility] eGFR (mL/min/1.73m2) 101 >=60 mL/min/1.7 3m2 01/14/2025 5:09 AM EDT [facility] Comment:ESTIMATED GFR IS NOT ACCURATE CREATININE CLEARANCE IN PREDICTING GLOMERULAR FILTRATION RATE. ESTIMATED GFR IS NOT APPLICABLE FOR DIALYSIS PATIENTS. Osmolality Calc 285.0 mOsm/kg 5:09 AM T [facility] Blood Venipuncture / Unknown 01/14/2025 3:46 AM EDT 01/14/2025 4:38 AM EDT us Carlee Sutton MD LAB BLOOD ORDERABLES Final Re sult [facility] [address] [phone] * (ABNORMAL) CBC with automated diff (01/14/2025 3:46 AM EDT) WBC 5.3 4.2 - 9.1 K/ L 01/14/2025 5:12 AM EDT [facility] RBC 3.57(L) 4.63 - 6.08 M/ L 01/14/2025 5:12 AM EDT [facility] Hemoglobin 12.3(L) 13.7 - 17.5 GM/DL 01/14/2025 5:12 AM EDT [facility] Hematocrit 36.6(L) 40.1 - 51.0 % 01/14/2025 5:12 AM EDT [facility] MCV 103(H) 79 - 92 fL 01/14/2025 5:12 AM EDT [facility] MCH 34.5(H) 25.7 - 32.2 pg 01/14/2025 5:12 AM EDT [facility] MCHC 33.6 32.3 - 36.5 GM/DL 01/14/2025 5:12 AM EDT [facility] RDW 13.3 11.6 - 14.4 % 01/14/2025 5:12 AM EDT [facility] Platelets 413(H) 140 - 375 K/CU MM 01/14/2025 5:12 AM EDT [facility] MPV 9.4 9.4 - 12.4 fL 01/14/2025 5:12 AM EDT [facility] NRBC Absolute <0.01 0 - 0.012 K/ul 01/14/2025 5:12 AM EDT [facility] Blood Venipuncture / Unknown 01/14/2025 3:46 AM EDT 01/14/2025 4:39 AM EDT Narrative [facility] - 01/14/2025 5:12 AM EDT When CBC w/ Auto Diff is ordered the lab will add a Manual Differential as a quality check at no additional charge if: Lymphocytes greater than seventy five percent with normal or increased WBC Monocytes greater than Fifteen percent Basophil greater than four percent Bands >10% or several immature myeloids are seen on scan Blast? Flag noted Atypical Lymph flag noted us Carlee Sutton MD LAB BLOOD ORDERABLES Final Re sult [facility] [address] [phone] * (ABNORMAL) Iron and TIBC (01/13/2025 3:44 AM EDT) Iron 47(L) 65 - 175 ug/dL 01/13/2025 4:47 PM EDT [facility] TIBC 279 250 - 435 ug/dL 01/13/2025 4:47 PM EDT [facility] % Saturation 17 % 01/13/2025 4:47 PM EDT [facility] UIBC 232 01/13/2025 4:47 PM EDT [facility] Blood Venipuncture / Unknown 01/13/2025 3:44 AM EDT 01/13/2025 4:15 AM EDT us Carlee Sutton MD LAB BLOOD ORDERABLES Final Re sult Performing Organization Address [facility]/ZIP Co de Phone Number [facility] [address] [phone] * Phosphorus (01/13/2025 3:44 AM EDT) Phosphorus 3.6 2.5 - 4.5 mg/dL 01/13/2025 4:40 AM EDT [facility] Blood Venipuncture / Unknown 01/13/2025 3:44 AM EDT 01/13/2025 4:15 AM EDT us Carlee Sutton MD LAB BLOOD ORDERABLES Final Re sult [facility] [address] [phone] * Magnesium (01/13/2025 3:44 AM EDT) Magnesium 1.7 1.6 - 2.6 mg/dL 01/13/2025 4:40 AM EDT [facility] Blood Venipuncture / Unknown 01/13/2025 3:44 AM EDT 01/13/2025 4:15 AM EDT us Carlee Sutton MD LAB BLOOD ORDERABLES Final Re sult [facility] [address] [phone] * (ABNORMAL) Basic Metabolic Panel (01/13/2025 3:44 AM EDT) Sodium 146(H) 136 - 145 meq/L 01/13/2025 4:40 AM EDT [facility] Potassium 3.9 3.4 - 5.1 meq/L 01/13/2025 4:40 AM EDT [facility] CO2 22 22 - 29 meq/L 01/13/2025 4:40 AM EDT [facility] Chloride 106 98 - 112 meq/L 01/13/2025 4:40 AM T [facility] Glucose 100 74 - 100 mg/dL 01/13/2025 4:40 AM EDT [facility] BUN 26.2(H) 8.4 - 25.7 mg/dL 01/13/2025 4:40 AM EDT [facility] Creatinine 0.90 0.72 - 1.25 mg/dL 01/13/2025 4:40 AM T [facility] BUN/Creatinine 29(H) 8 - 20 01/13/2025 4:40 AM EDT [facility] Calcium 9.3 8.4 - 10.2 mg/dL 01/13/2025 4:40 AM EDT [facility] Anion Gap 22(H) 4 - 12 01/13/2025 4:40 AM T [facility] eGFR (mL/min/1.73m2) 98 >=60 mL/min/1.7 3m2 01/13/2025 4:40 AM T [facility] Comment:ESTIMATED GFR IS NOT ACCURATE CREATININE CLEARANCE IN PREDICTING GLOMERULAR FILTRATION RATE. ESTIMATED GFR IS NOT APPLICABLE FOR DIALYSIS PATIENTS. Osmolality Calc 295.5 mOsm/kg 4:40 AM T [facility] Blood Venipuncture / Unknown 01/13/2025 3:44 AM EDT 01/13/2025 4:15 AM EDT us Carlee Sutton MD LAB BLOOD ORDERABLES Final Re sult [facility] [address] [place] [address], [facility] [phone] * CT brain without IV contrast (01/12/2025 1:38 PM EDT) Anatomical Region Laterality Modality Brain, Head Computed Tomogra phy (CT) 01/12/2025 2:22 PM EDT Impressions 01/12/2025 2:39 PM EDT Persistent but improving subdural hematoma which has decreased in size and density. Images reviewed, interpreted, and dictated by Dr. Vikash Townsend. Transcribed by Sharmila Farris PA-C. Narrative 01/12/2025 2:[address] HEAD WITHOUT CONTRAST HISTORY: Follow-up subdural hemorrhage COMPARISON:January 06, 2025 TECHNIQUE: Thin-section axial images of the brain were performed without contrast. This study was performed with techniques to keep radiation doses as low as reasonably achievable, (ALARA). Individualized dose reduction techniques using automated exposure control or adjustment of mA and/or kV according to the patient size were employed. FINDINGS: The visualized paranasal sinuses demonstrate no abnormalities. The mastoid air cells are unremarkable. Bone windows demonstrate no fractures or other abnormalities. There is mild to moderate atrophy noted. Again identified is a mixed attenuation right subdural hematoma. There is some residual acute hemorrhage in the temporal occipital region. This previously measured up to 7.5 mm, now measures up to 5 mm. The acute component is less dense than previous. No evidence of midline shift. The ventricles and basal cisterns are unremarkable. There are no masses or mass effect. The visualized orbits and globes are unremarkable. Procedure Note Vikash Townsend MD - 01/12/2025 CT HEAD WITHOUT CONTRAST HISTORY: Follow-up subdural hemorrhage COMPARISON:January 06, 2025 TECHNIQUE: Thin-section axial images of the brain were performed without contrast. This study was performed with techniques to keep radiation doses as low as reasonably achievable, (ALARA). Individualized dose reduction techniques using automated exposure control or adjustment of mA and/or kV according to the patient size were employed. FINDINGS: The visualized paranasal sinuses demonstrate no abnormalities. The mastoid air cells are unremarkable. Bone windows demonstrate no fractures or other abnormalities. There is mild to moderate atrophy noted. Again identified is a mixed attenuation right subdural hematoma. There is some residual acute hemorrhage in the temporal occipital region. This previously measured up to 7.5 mm, now measures up to 5 mm. The acute component is less dense than previous. No evidence of midline shift. The ventricles and basal cisterns are unremarkable. There are no masses or mass effect. The visualized orbits and globes are unremarkable. IMPRESSION: Persistent but improving subdural hematoma which has decreased in size and density. Images reviewed, interpreted, and dictated by Dr. Vikash Townsend. Transcribed by Sharmila Farris PA-C. us Carlee Sutton MD IM CT ORDERABLES Final Resul t * (ABNORMAL) Basic Metabolic Panel (01/12/2025 3:22 AM EDT) Sodium 137 136 - 145 meq/L 01/12/2025 3:57 AM EDT [facility] Potassium 3.8 3.4 - 5.1 meq/L 01/12/2025 3:57 AM EDT [facility] CO2 22 22 - 29 meq/L 01/12/2025 3:57 AM EDT [facility] Chloride 104 98 - 112 meq/L 01/12/2025 3:57 AM EDT [facility] Glucose 99 74 - 100 mg/dL 01/12/2025 3:57 AM EDT [facility] BUN 24.8 8.4 - 25.7 mg/dL 01/12/2025 3:57 AM EDT [facility] Creatinine 0.74 0.72 - 1.25 mg/dL 01/12/2025 3:57 AM EDT [facility] BUN/Creatinine 34(H) 8 - 20 01/12/2025 3:57 AM EDT [facility] Calcium 9.2 8.4 - 10.2 mg/dL 01/12/2025 3:57 AM EDT [facility] Anion Gap 15(H) 4 - 12 01/12/2025 3:57 AM EDT [facility] eGFR (mL/min/1.73m2) 104 >=60 mL/min/1.7 3m2 01/12/2025 3:57 AM EDT [facility] Comment:ESTIMATED GFR IS NOT ACCURATE CREATININE CLEARANCE IN PREDICTING GLOMERULAR FILTRATION RATE. ESTIMATED GFR IS NOT APPLICABLE FOR DIALYSIS PATIENTS. Osmolality Calc 278.2 mOsm/kg 3:57 AM EDT [facility] Blood Venipuncture / Unknown 01/12/2025 3:22 AM EDT 01/12/2025 3:32 AM EDT us Carlee Sutton MD LAB BLOOD ORDERABLES Final Re sult Performing Organization Address [facility] Phone Number [facility] [address] [phone] * Phosphorus (01/12/2025 3:22 AM EDT) Phosphorus 3.2 2.5 - 4.5 mg/dL 01/12/2025 3:57 AM EDT [facility] Blood Venipuncture / Unknown 01/12/2025 3:22 AM EDT 01/12/2025 3:32 AM EDT us Carlee Sutton MD LAB BLOOD ORDERABLES Final Re sult Performing Organization Address [facility] Phone Number [facility] [address] [phone] * Magnesium (01/12/2025 3:22 AM EDT) Magnesium 1.6 1.6 - 2.6 mg/dL 01/12/2025 3:57 AM EDT [facility] Blood Venipuncture / Unknown 01/12/2025 3:22 AM EDT 01/12/2025 3:32 AM EDT us Carlee Sutton MD LAB BLOOD ORDERABLES Final Re sult Performing Organization Address [facility] Co de Phone Number [facility] [address] [phone] * (ABNORMAL) Manual Differential (01/11/2025 2:53 AM EDT) Total Counted 100 01/11/2025 4:11 AM EDT [facility] % Neutros (manual) 61 50 - 65 % 01/11/2025 4:11 AM EDT [facility] % Bands (manual) 2 % 01/12/20 25 4:11 AM EDT [facility] % Lymphs (manual) 17(L) 24 - 44 % 025 4:11 AM EDT [facility] % Monos (manual) 14(H) 4 - 5 % 01/12/20 25 4:11 AM EDT [facility] % Eos (manual) 6(H) 0 - 3 % 01/11/2025 4:11 AM EDT [facility] RBC Morphology abnormal(A) Normal 4:11 AM EDT [facility] Platelet Estimate Adequate Adequate 025 4:11 AM EDT [facility] Anisocytosis 1+ 01/11/2025 4:11 AM EDT [facility] Hypochromia 1+ 01/11/2025 4:11 AM EDT [facility] Polychromasia 1+ 01/11/2025 4:11 AM EDT [facility] Macrocytes 1+ 01/11/2025 4:11 AM EDT [facility] Ovalocytes 1+ 01/11/2025 4:11 AM EDT [facility] # Neutrophils (manual) 4.03 K/ L 01/11/2025 4:11 AM EDT [facility] Blood Venipuncture / Unknown 01/11/2025 2:53 AM EDT 01/11/2025 3:02 AM EDT us Carlee Sutton MD LAB BLOOD ORDERABLES Final Re sult [facility] [address] [phone] * Phosphorus (01/11/2025 2:53 AM EDT) Phosphorus 4.1 2.5 - 4.5 mg/dL 01/11/2025 3:28 AM EDT [facility] Blood Venipuncture / Unknown 01/11/2025 2:53 AM EDT 01/11/2025 3:02 AM EDT [facility] - 01/11/2025 3:28 AM EDT Specimen slightly hemolyzed us Carlee Sutton MD LAB BLOOD ORDERABLES Final Re sult Performing Organization Address [facility] Co de Phone Number [facility] [address] [phone] * Magnesium (01/11/2025 2:53 AM EDT) Magnesium 1.7 1.6 - 2.6 mg/dL 01/11/2025 3:28 AM EDT [facility] Blood Venipuncture / Unknown 01/11/2025 2:53 AM EDT 01/11/2025 3:02 AM EDT [facility] - 01/11/2025 3:28 AM EDT Specimen slightly hemolyzed us Carlee Sutton MD LAB BLOOD ORDERABLES Final Re sult Performing Organization Address City/[facility]/ZIP Co de Phone Number [facility] [address] [phone] * (ABNORMAL) Comprehensive metabolic panel (01/11/2025 2:53 AM EDT) Sodium 135(L) 136 - 145 meq/L 01/11/2025 3:28 AM EDT [facility] Potassium 4.2 3.4 - 5.1 meq/L 01/11/2025 3:28 AM EDT [facility] Chloride 104 98 - 112 meq/L 01/11/2025 3:28 AM EDT [facility] CO2 21(L) 22 - 29 meq/L 01/11/2025 3:[address] [facility] Calcium 9.3 8.4 - 10.2 mg/dL 01/11/2025 3:[address] [facility] Glucose 113(H) 74 - 100 mg/dL 01/11/2025 3:[address] [facility] BUN 23.3 8.4 - 25.7 mg/dL 01/11/2025 3:[address] [facility] Creatinine 0.69(L) 0.72 - 1.25 mg/dL 01/11/2025 3:[address] [facility] BUN/Creatinine 34(H) 8 - 20 01/11/2025 3:[address] [facility] eGFR (mL/min/1.73m2) 107 >=60 mL/min/1. 73m2 01/11/2025 3:[address] [facility] Comment:ESTIMATED GFR IS NOT ACCURATE CREATININE CLEARANCE IN PREDICTING GLOMERULAR FILTRATION RATE. ESTIMATED GFR IS NOT APPLICABLE FOR DIALYSIS PATIENTS. Albumin 2.9(L) 3.5 - 5.0 g/dL 01/11/2025 3:[address] [facility] Alkaline Phosphatase 47 40 - 150 U/L 01/11/2025 3:[address] [facility] ALT 117(H) <=45 U/L 01/11/2025 3:[address] [facility] Comment: ALT2 reagent used for testing does not contain P5P supplementation and therefore may miss ALT elevations in patients with B6 deficiency. This population may be as high as 10% in the [place], with risk factors including malabsorption, drug interactions, and alcoholic hepatitis. AST 44(H) 11 - 34 U/L 01/11/2025 3:[address] [facility] Comment: AST2 reagent used for testing does not contain P5P supplementation and therefore may miss AST elevations in patients with B6 deficiency. This population may be as high as 10% in the [place], with risk factors including malabsorption, drug interactions, and alcoholic hepatitis. Total Bilirubin 0.5 0.2 - 1.2 mg/dL 01/11/2025 3:[address] [facility] Protein, Total 6.9 6.4 - 8.3 g/dL 01/11/2025 3:28 AM EDT [facility] Globulin 4.0 2.5 - 4.1 g/dL 01/11/2025 3:28 AM EDT [facility] Anion Gap 14(H) 4 - 12 01/11/2025 3:28 AM EDT [facility] A/G Ratio 0.7 0.7 - 1.9 01/11/2025 3:28 AM EDT [facility] Osmolality Calc 274.7 mOsm/kg 3:28 AM EDT [facility] Blood Venipuncture / Unknown 01/11/2025 2:53 AM EDT 01/11/2025 3:02 AM EDT Narrative [facility] - 01/11/2025 3:28 AM EDT Specimen slightly hemolyzed us Carlee Sutton MD LAB BLOOD ORDERABLES Final Re sult [facility] [address] [phone] * (ABNORMAL) CBC with automated diff (01/11/2025 2:53 AM EDT) WBC 6.4 4.2 - 9.1 K/ L 01/11/2025 3:21 AM EDT [facility] RBC 3.43(L) 4.63 - 6.08 M/ L 01/11/2025 3:21 AM EDT [facility] Hemoglobin 12.0(L) 13.7 - 17.5 GM/DL 01/11/2025 3:21 AM EDT [facility] Hematocrit 36.9(L) 40.1 - 51.0 % 01/11/2025 3:21 AM EDT [facility] MCV 108(H) 79 - 92 fL 01/11/2025 3:21 AM EDT [facility] MCH 35.0(H) 25.7 - 32.2 pg 01/11/2025 3:21 AM EDT [facility] MCHC 32.5 32.3 - 36.5 GM/DL 01/11/2025 3:21 AM EDT [facility] RDW 13.7 11.6 - 14.4 % 01/11/2025 3:21 AM EDT [facility] Platelets 193 140 - 375 K/CU MM 01/11/2025 3:21 AM EDT [facility] MPV 9.2(L) 9.4 - 12.4 fL 01/11/2025 3:21 AM EDT [facility] NRBC Absolute <0.01 0 - 0.012 K/ul 01/11/2025 3:21 AM EDT [facility] Blood Venipuncture / Unknown 01/11/2025 2:53 AM EDT 01/11/2025 3:02 AM EDT Narrative [facility] - 01/11/2025 3:21 AM EDT When CBC w/ Auto Diff is ordered the lab will add a Manual Differential as a quality check at no additional charge if: Lymphocytes greater than seventy five percent with normal or increased WBC Monocytes greater than Fifteen percent Basophil greater than four percent Bands >10% or several immature myeloids are seen on scan Blast? Flag noted Atypical Lymph flag noted us Carlee Sutton MD LAB BLOOD ORDERABLES Final Re sult [facility] [address] [phone] * (ABNORMAL) Manual Differential (01/10/2025 3:36 AM EDT) Total Counted 100 01/10/2025 5:40 AM EDT [facility] % Neutros (manual) 59 50 - 65 % 01/10/2025 5:40 AM EDT [facility] % Lymphs (manual) 14(L) 24 - 44 % 025 5:40 AM EDT [facility] % Monos (manual) 18(H) 4 - 5 % 01/11/20 25 5:40 AM EDT [facility] % Eos (manual) 7(H) 0 - 3 % 01/10/2025 5:40 AM EDT [facility] % Baso (manual) 2(H) 0 - 1 % 5 5:40 AM EDT [facility] RBC Morphology abnormal(A) Normal 5:40 AM EDT [facility] Platelet Estimate Adequate Adequate 025 5:40 AM EDT [facility] Anisocytosis 1+ 01/10/2025 5:40 AM EDT [facility] Hypochromia 1+ 01/10/2025 5:40 AM EDT [facility] Polychromasia 1+ 01/10/2025 5:40 AM EDT [facility] Macrocytes 1+ 01/10/2025 5:40 AM EDT [facility] # Neutrophils (manual) 2.66 K/ L 01/10/2025 5:40 AM EDT [facility] Blood Venipuncture / Unknown 01/10/2025 3:36 AM EDT 01/10/2025 4:02 AM EDT us Carlee Sutton MD LAB BLOOD ORDERABLES Final Re sult Performing Organization Address City/[facility]/ZIP Co de Phone Number [facility] [address] [phone] * Phosphorus (01/10/2025 3:36 AM EDT) Phosphorus 4.0 2.5 - 4.5 mg/dL 01/10/2025 4:29 AM EDT [facility] Blood Venipuncture / Unknown 01/10/2025 3:36 AM EDT 01/10/2025 4:01 AM EDT Narrative [facility] - 01/10/2025 4:29 AM EDT Specimen slightly hemolyzed us Carlee Sutton MD LAB BLOOD ORDERABLES Final Re sult Performing Organization Address [place]/[facility]/ZIP Co de Phone Number [facility] [address] [phone] * (ABNORMAL) Magnesium (01/10/2025 3:36 AM EDT) Magnesium 1.4(L) 1.6 - 2.6 mg/dL 01/10/2025 4:29 AM EDT [facility] Blood Venipuncture / Unknown 01/10/2025 3:36 AM EDT 01/10/2025 4:01 AM EDT Narrative [facility] - 01/10/2025 4:29 AM EDT Specimen slightly hemolyzed us Carlee Sutton MD LAB BLOOD ORDERABLES Final Re sult [facility] [address] [phone] * (ABNORMAL) Comprehensive metabolic panel (01/10/2025 3:36 AM EDT) Sodium 140 136 - 145 meq/L 01/10/2025 4:30 AM EDT [facility] Potassium 3.6 3.4 - 5.1 meq/L 01/10/2025 4:30 AM EDT [facility] Chloride 102 98 - 112 meq/L 01/10/2025 4:30 AM EDT [facility] CO2 25 22 - 29 meq/L 01/10/2025 4:30 AM EDT [facility] Calcium 9.3 8.4 - 10.2 mg/dL 01/10/2025 4:30 AM EDT [facility] Glucose 104(H) 74 - 100 mg/dL 01/10/2025 4:30 AM EDT [facility] BUN 20.2 8.4 - 25.7 mg/dL 01/10/2025 4:30 AM EDT [facility] Creatinine 0.69(L) 0.72 - 1.25 mg/dL 01/10/2025 4:30 AM EDT [facility] BUN/Creatinine 29(H) 8 - 20 01/10/2025 4:30 AM EDT [facility] eGFR (mL/min/1.73m2) 107 >=60 mL/min/1. 73m2 01/10/2025 4:[address] [facility] Comment:ESTIMATED GFR IS NOT ACCURATE CREATININE CLEARANCE IN PREDICTING GLOMERULAR FILTRATION RATE. ESTIMATED GFR IS NOT APPLICABLE FOR DIALYSIS PATIENTS. Albumin 2.9(L) 3.5 - 5.0 g/dL 01/10/2025 4:[address] [facility] Alkaline Phosphatase 47 40 - 150 U/L 01/10/2025 4:[address] [facility] ALT 159(H) <=45 U/L 01/10/2025 4:[address] [facility] Comment: ALT2 reagent used for testing does not contain P5P supplementation and therefore may miss ALT elevations in patients with B6 deficiency. This population may be as high as 10% in the [place], with risk factors including malabsorption, drug interactions, and alcoholic hepatitis. AST 71(H) 11 - 34 U/L 01/10/2025 4:[address] [facility] Comment: AST2 reagent used for testing does not contain P5P supplementation and therefore may miss AST elevations in patients with B6 deficiency. This population may be as high as 10% in the [place], with risk factors including malabsorption, drug interactions, and alcoholic hepatitis. Total Bilirubin 0.6 0.2 - 1.2 mg/dL 01/10/2025 4:[address] [facility] Protein, Total 6.8 6.4 - 8.3 g/dL 01/10/2025 4:[address] [facility] Globulin 3.9 2.5 - 4.1 g/dL 01/10/2025 4:[address] [facility] Anion Gap 17(H) 4 - 12 01/10/2025 4:[address] [facility] A/G Ratio 0.7 0.7 - 1.9 01/10/2025 4:[address] [facility] Osmolality Calc 282.4 mOsm/kg 4:[address] [facility] Blood Venipuncture / Unknown 01/10/2025 3:36 AM EDT 01/10/2025 4:01 AM [facility] - 01/10/2025 4:30 AM EDT Specimen slightly hemolyzed us Carlee Sutton MD LAB BLOOD ORDERABLES Final Re sult [facility] [address] [place] [id number] [phone] * (ABNORMAL) CBC with automated diff (01/10/2025 3:36 AM EDT) WBC 4.5 4.2 - 9.1 K/ L 01/10/2025 4:11 AM EDT [facility] RBC 3.20(L) 4.63 - 6.08 M/ L 01/10/2025 4:11 AM EDT [facility] Hemoglobin 11.4(L) 13.7 - 17.5 GM/DL 01/10/2025 4:11 AM EDT [facility] Hematocrit 33.0(L) 40.1 - 51.0 % 01/10/2025 4:11 AM EDT [facility] MCV 103(H) 79 - 92 fL 01/10/2025 4:11 AM EDT [facility] MCH 35.6(H) 25.7 - 32.2 pg 01/10/2025 4:11 AM EDT [facility] MCHC 34.5 32.3 - 36.5 GM/DL 01/10/2025 4:11 AM EDT [facility] RDW 13.8 11.6 - 14.4 % 01/10/2025 4:11 AM EDT [facility] Platelets 168 140 - 375 K/CU MM 01/10/2025 4:11 AM EDT [facility] MPV 9.3(L) 9.4 - 12.4 fL 01/10/2025 4:11 AM EDT [facility] NRBC Absolute <0.01 0 - 0.012 K/ul 01/10/2025 4:11 AM EDT [facility] Blood Venipuncture / Unknown 01/10/2025 3:36 AM EDT 01/10/2025 4:02 AM EDT Narrative [facility] - 01/10/2025 4:11 AM EDT When CBC w/ Auto Diff is ordered the lab will add a Manual Differential as a quality check at no additional charge if: Lymphocytes greater than seventy five percent with normal or increased WBC Monocytes greater than Fifteen percent Basophil greater than four percent Bands >10% or several immature myeloids are seen on scan Blast? Flag noted Atypical Lymph flag noted us Carlee Sutton MD LAB BLOOD ORDERABLES Final Re sult Performing Organization Address [facility]/ZIP Co de Phone Number [facility] [address] [phone] * ECG 12 lead (01/09/2025 7:04 PM EDT) [facility] VENTRICULAR RATE EKG/MIN 65 BPM GE MUSE ATRIAL RATE (MCT) 65 BPM GE MUSE MA Interval 134 ms GE MUSE QRS-INTERVAL (MSEC) 92 ms GE MUSE QT Interval 408 ms GE MUSE QTC Interval 424 ms GE MUSE R AXIS (MCT) 55 degrees GE MUSE T Wave [place] 55 degrees GE MUSE [place] Diagnosis Normal sinus rhythm Normal ECG When compared with ECG of 09-JAN-2025 08:40, No significant change was found Confirmed by Ayse DAWSON, YENY ([id number]) on 01/10/2025 12:33:52 PM GE MUSE 01/09/2025 7:04 PM EDT 01/10/2025 12:33 PM EDT us Carlee Sutton MD ECG ORDERABLES Final Result Performing Organization Address [facility] Co de Phone Number GE MUSE * Glucose, Nova Meter (01/09/2025 4:27 PM EDT) [facility] POC-GLUCOSE 110 70 - 110 mg/dL 01/09/2025 4:28 PM EDT [facility] Comment: In the event of poor peripheral blood flow, venous or arterial blood should be used due to the potential of erroneous results. Protocols FollowedNotified Nurse RBV Coroner Forensic Technician [id number] 01/09/2025 4:28 PM EDT [facility] Blood WHOLE BLOOD / Unknown 01/09/2025 4:27 PM EDT 01/09/2025 4:28 PM EDT Narrative [facility] - 01/09/2025 4:28 PM EDT Coroner Forensic Technician ID is - [id number] us Carlee Sutton MD POINT OF CARE TEST ORDERABLES Final Result [facility] [address] [phone] * ECG 12 lead (01/09/2025 8:40 AM EDT) SYSTOLIC BLOOD PRESSURE (MCT) 148 mmHg GE MUSE DIASTOLIC BLOOD PRESSURE (MCT) 93 mmHg GE MUSE VENTRICULAR RATE EKG/MIN 67 BPM GE MUSE ATRIAL RATE (MCT) 67 BPM GE MUSE MA Interval 134 ms GE MUSE QRS-INTERVAL (MSEC) 84 ms GE MUSE QT Interval 412 ms GE MUSE QTC Interval 435 ms GE MUSE R AXIS (MCT) 74 degrees GE MUSE T Wave [place] 84 degrees GE MUSE [place] Diagnosis Normal sinus rhythm Nonspecific ST abnormality with short MA When compared with ECG of 06-JAN-2025 20:34, QT has shortened Confirmed by Aida Hernandez ([id number]) on 01/09/2025 4:46:58 PM GE MUSE 01/09/2025 8:40 AM EDT 01/09/2025 4:46 PM EDT us Carlee Sutton MD ECG ORDERABLES Final Result GE MUSE * (ABNORMAL) CBC - Hemogram (SJ-BKR) (01/09/2025 2:22 AM EDT) WBC 3.6(L) 4.2 - 9.1 K/ L 01/09/2025 2:24 AM EDT [facility] RBC 2.92(L) 4.63 - 6.08 M/ L 01/09/2025 2:24 AM EDT [facility] Hemoglobin 10.5(L) 13.7 - 17.5 GM/DL 01/09/2025 2:24 AM EDT [facility] Hematocrit 31.0(L) 40.1 - 51.0 % 01/09/2025 2:24 AM EDT [facility] MCV 106(H) 79 - 92 fL 01/09/2025 2:24 AM EDT [facility] MCH 36.0(H) 25.7 - 32.2 pg 01/09/2025 2:24 AM EDT [facility] MCHC 33.9 32.3 - 36.5 GM/DL 01/09/2025 2:24 AM EDT [facility] RDW 14.6(H) 11.6 - 14.4 % 01/09/2025 2:24 AM EDT [facility] Platelets 123(L) 140 - 375 K/CU MM 01/09/2025 2:24 AM EDT [facility] MPV 9.1(L) 9.4 - 12.4 fL 01/09/2025 2:24 AM EDT [facility] Blood Venipuncture / Unknown 01/09/2025 2:22 AM EDT 01/09/2025 2:22 AM EDT us Whitney Moran MD LAB BLOOD ORDERABLES Final Resul t [facility] [address] [phone] * (ABNORMAL) Comprehensive metabolic panel (01/09/2025 2:22 AM EDT) Sodium 140 136 - 145 meq/L 01/09/2025 2:52 AM EDT [facility] Potassium 3.9 3.4 - 5.1 meq/L 01/09/2025 2:52 AM EDT [facility] Chloride 103 98 - 112 meq/L 01/09/2025 2:52 AM EDT [facility] CO2 25 22 - 29 meq/L 01/09/2025 2:52 AM EDT [facility] Calcium 9.0 8.4 - 10.2 mg/dL 01/09/2025 2:52 AM EDT [facility] Glucose 104(H) 74 - 100 mg/dL 01/09/2025 2:[address] [facility] BUN 22.1 8.4 - 25.7 mg/dL 01/09/2025 2:[address] [facility] Creatinine 0.75 0.72 - 1.25 mg/dL 01/09/2025 2:[address] [facility] BUN/Creatinine 29(H) 8 - 20 01/09/2025 2:[address] [facility] eGFR (mL/min/1.73m2) 104 >=60 mL/min/1. 73m2 01/09/2025 2:[address] [facility] Comment:ESTIMATED GFR IS NOT ACCURATE CREATININE CLEARANCE IN PREDICTING GLOMERULAR FILTRATION RATE. ESTIMATED GFR IS NOT APPLICABLE FOR DIALYSIS PATIENTS. Albumin 2.8(L) 3.5 - 5.0 g/dL 01/09/2025 2:[address] [facility] Alkaline Phosphatase 46 40 - 150 U/L 01/09/2025 2:[address] [facility] ALT 229(H) <=45 U/L 01/09/2025 2:[address] [facility] Comment: ALT2 reagent used for testing does not contain P5P supplementation and therefore may miss ALT elevations in patients with B6 deficiency. This population may be as high as 10% in the [place], with risk factors including malabsorption, drug interactions, and alcoholic hepatitis. AST 134(H) 11 - 34 U/L 01/09/2025 2:[address] [facility] Comment: AST2 reagent used for testing does not contain P5P supplementation and therefore may miss AST elevations in patients with B6 deficiency. This population may be as high as 10% in the [place], with risk factors including malabsorption, drug interactions, and alcoholic hepatitis. Total Bilirubin 0.6 0.2 - 1.2 mg/dL 01/09/2025 2:[address] [facility] Protein, Total 6.4 6.4 - 8.3 g/dL 01/09/2025 2:[address] [facility] Globulin 3.6 2.5 - 4.1 g/dL 01/09/2025 2:[address] [facility] Anion Gap 16(H) 4 - 12 01/09/2025 2:52 AM EDT [facility] A/G Ratio 0.8 0.7 - 1.9 01/09/2025 2:52 AM EDT [facility] Osmolality Calc 283.1 mOsm/kg 2:52 AM EDT [facility] Blood Venipuncture / Unknown 01/09/2025 2:22 AM EDT 01/09/2025 2:22 AM EDT us Whitney Moran MD LAB BLOOD ORDERABLES Final Resul t [facility] [address] [phone] * (ABNORMAL) Glucose, Nova Meter (01/08/2025 4:45 PM EDT) POC-GLUCOSE 136(H) 70 - 110 mg/dL 01/08/2025 4:47 PM EDT [facility] Comment: In the event of poor peripheral blood flow, venous or arterial blood should be used due to the potential of erroneous results. Protocols FollowedNotified Nurse RBV Coroner Forensic Technician [id number] 01/08/2025 4:47 PM EDT [facility] Blood WHOLE BLOOD / Unknown 01/08/2025 4:45 PM EDT 01/08/2025 4:46 PM EDT Narrative [facility] - 01/08/2025 4:47 PM EDT Coroner Forensic Technician ID is - [id number] us Whitney Moran MD POINT OF CARE TEST ORDERABLES Fi nal Result [facility] [address] [phone] * (ABNORMAL) Glucose, Nova Meter (01/08/2025 11:23 AM EDT) POC-GLUCOSE 116(H) 70 - 110 mg/dL 01/08/2025 11:27 AM EDT [facility] Comment: In the event of poor peripheral blood flow, venous or arterial blood should be used due to the potential of erroneous results. Notified Nurse RBVProtocols Followed Coroner Forensic Technician [phone] 01/08/2025 11:27 AM EDT [facility] Blood WHOLE BLOOD / Unknown 01/08/2025 11:23 AM EDT 01/08/2025 11:27 AM EDT Narrative [facility] - 01/08/2025 11:27 AM EDT Coroner Forensic Technician ID is - [id number] us Whitney Moran MD POINT OF CARE TEST ORDERABLES Fi nal Result [facility] [address] [phone] * (ABNORMAL) Comprehensive metabolic panel (01/08/2025 1:59 AM EDT) Sodium 139 136 - 145 meq/L 01/08/2025 2:51 AM EDT [facility] Potassium 3.4 3.4 - 5.1 meq/L 01/08/2025 2:51 AM EDT [facility] Chloride 103 98 - 112 meq/L 01/08/2025 2:51 AM EDT [facility] CO2 26 22 - 29 meq/L 01/08/2025 2:51 AM EDT [facility] Calcium 8.1(L) 8.4 - 10.2 mg/dL 01/08/2025 2:51 AM EDT [facility] Glucose 99 74 - 100 mg/dL 01/08/2025 2:51 AM EDT [facility] BUN 19.3 8.4 - 25.7 mg/dL 01/08/2025 2:51 AM EDT [facility] Creatinine 0.69(L) 0.72 - 1.25 mg/dL 01/08/2025 2:51 AM EDT [facility] BUN/Creatinine 28(H) 8 - 20 01/08/2025 2:51 AM EDT [facility] eGFR (mL/min/1.73m2) 107 >=60 mL/min/1. 73m2 01/08/2025 2:[address] [facility] Comment:ESTIMATED GFR IS NOT ACCURATE CREATININE CLEARANCE IN PREDICTING GLOMERULAR FILTRATION RATE. ESTIMATED GFR IS NOT APPLICABLE FOR DIALYSIS PATIENTS. Albumin 2.6(L) 3.5 - 5.0 g/dL 01/08/2025 2:[address] [facility] Alkaline Phosphatase 44 40 - 150 U/L 01/08/2025 2:[address] [facility] ALT 299(H) <=45 U/L 01/08/2025 2:[address] [facility] Comment: ALT2 reagent used for testing does not contain P5P supplementation and therefore may miss ALT elevations in patients with B6 deficiency. This population may be as high as 10% in the [place], with risk factors including malabsorption, drug interactions, and alcoholic hepatitis. AST 302(H) 11 - 34 U/L 01/08/2025 2:[address] [facility] Comment: AST2 reagent used for testing does not contain P5P supplementation and therefore may miss AST elevations in patients with B6 deficiency. This population may be as high as 10% in the [place], with risk factors including malabsorption, drug interactions, and alcoholic hepatitis. Total Bilirubin 0.6 0.2 - 1.2 mg/dL 01/08/2025 2:[address] [facility] Protein, Total 5.9(L) 6.4 - 8.3 g/dL 01/08/2025 2:[address] [facility] Globulin 3.3 2.5 - 4.1 g/dL 01/08/2025 2:[address] [facility] Anion Gap 13(H) 4 - 12 01/08/2025 2:[address] [facility] A/G Ratio 0.8 0.7 - 1.9 01/08/2025 2:[address] [facility] Osmolality Calc 279.9 mOsm/kg 2:[address] [facility] Blood Venipuncture / Unknown 01/08/2025 1:59 AM EDT 01/08/2025 2:10 AM EDT us Whitney Moran MD LAB BLOOD ORDERABLES Final Resul t Performing Organization Address [facility]/ZIP Co de Phone Number [facility] [address] [phone] * (ABNORMAL) CBC - Hemogram (SJ-BKR) (01/08/2025 1:58 AM EDT) WBC 3.1(L) 4.2 - 9.1 K/ L 01/08/2025 2:15 AM EDT [facility] RBC 2.84(L) 4.63 - 6.08 M/ L 01/08/2025 2:15 AM EDT [facility] Hemoglobin 10.1(L) 13.7 - 17.5 GM/DL 01/08/2025 2:15 AM EDT [facility] Hematocrit 29.8(L) 40.1 - 51.0 % 01/08/2025 2:15 AM EDT [facility] MCV 105(H) 79 - 92 fL 01/08/2025 2:15 AM EDT [facility] MCH 35.6(H) 25.7 - 32.2 pg 01/08/2025 2:15 AM EDT [facility] MCHC 33.9 32.3 - 36.5 GM/DL 01/08/2025 2:15 AM EDT [facility] RDW 14.2 11.6 - 14.4 % 01/08/2025 2:15 AM EDT [facility] Platelets 80(L) 140 - 375 K/CU MM 01/08/2025 2:15 AM EDT [facility] MPV 9.2(L) 9.4 - 12.4 fL 01/08/2025 2:15 AM EDT [facility] Blood Venipuncture / Unknown 01/08/2025 1:58 AM EDT 01/08/2025 2:10 AM EDT us Whitney Moran MD LAB BLOOD ORDERABLES Final Resul t [facility] [address] [phone] * (ABNORMAL) Glucose, Nova Meter (01/07/2025 3:52 PM EDT) POC-GLUCOSE 119(H) 70 - 110 mg/dL 01/07/2025 3:53 PM EDT [facility] Comment: In the event of poor peripheral blood flow, venous or arterial blood should be used due to the potential of erroneous results. Protocols FollowedNotified Nurse RBV Coroner Forensic Technician [id number] 01/07/2025 3:53 PM EDT [facility] Blood WHOLE BLOOD / Unknown 01/07/2025 3:52 PM EDT 01/07/2025 3:53 PM EDT [facility] - 01/07/2025 3:53 PM EDT Coroner Forensic Technician ID is - [id number] Whitney Moran MD POINT OF CARE TEST ORDERABLES Fi nal Result Performing Organization Address [facility] Co de Phone Number [facility] [address] [phone] * (ABNORMAL) Glucose, Nova Meter (01/07/2025 11:58 AM EDT) POC-GLUCOSE 116(H) 70 - 110 mg/dL 01/07/2025 12:00 PM EDT [facility] Comment: In the event of poor peripheral blood flow, venous or arterial blood should be used due to the potential of erroneous results. Protocols Followed Coroner Forensic Technician [id number] 01/07/2025 12:00 PM EDT [facility] Blood WHOLE BLOOD / Unknown 01/07/2025 11:58 AM EDT 01/07/2025 12:00 PM EDT [facility] - 01/07/2025 12:00 PM EDT Coroner Forensic Technician ID is - [id number] us Whitney Moran MD POINT OF CARE TEST ORDERABLES Fi nal Result Performing Organization Address [facility]/ZIP Co de Phone Number [facility] [address] [phone] * Phosphorus (01/07/2025 3:03 AM EDT) Phosphorus 2.7 2.5 - 4.5 mg/dL 01/07/2025 10:49 AM EDT [facility] Blood Venipuncture / Unknown 01/07/2025 3:03 AM EDT 01/07/2025 3:42 AM EDT us Minna Osuna MD LAB BLOOD ORDERABLES Final Resul t [facility] [address] [phone] * (ABNORMAL) CBC Scan (01/07/2025 3:03 AM EDT) Pathologist [facility] Platelet Estimate Decreased (A) Adequate 01/07/2025 4:50 AM EDT [facility] RBC Morphology abnormal( A) Normal 01/07/2025 4:50 AM EDT [facility] Anisocytosis 1+ 01/07/2025 4:50 AM EDT [facility] Hypochromia 1+ 01/07/2025 4:50 AM EDT [facility] Polychromasia 1+ 01/07/2025 4:50 AM EDT [facility] Macrocytes 1+ 01/07/2025 4:50 AM EDT [facility] Microcytes 1+ 01/07/2025 4:50 AM EDT [facility] Poikilocytes 1+ 01/07/2025 4:50 AM EDT [facility] Blood Venipuncture / Unknown 01/07/2025 3:03 AM EDT 01/07/2025 3:41 AM EDT us Whitney Moran MD LAB BLOOD ORDERABLES Final Resul t [facility] [address] [phone] * (ABNORMAL) CBC - Hemogram (SJ-BKR) (01/07/2025 3:03 AM EDT) WBC 4.2 4.2 - 9.1 K/ L 01/07/2025 4:02 AM EDT [facility] RBC 2.81(L) 4.63 - 6.08 M/ L 01/07/2025 4:02 AM EDT [facility] Hemoglobin 10.0(L) 13.7 - 17.5 GM/DL 01/07/2025 4:02 AM EDT [facility] Hematocrit 29.4(L) 40.1 - 51.0 % 01/07/2025 4:02 AM EDT [facility] MCV 105(H) 79 - 92 fL 01/07/2025 4:02 AM EDT [facility] MCH 35.6(H) 25.7 - 32.2 pg 01/07/2025 4:02 AM EDT [facility] MCHC 34.0 32.3 - 36.5 GM/DL 01/07/2025 4:02 AM EDT [facility] RDW 14.2 11.6 - 14.4 % 01/07/2025 4:02 AM EDT [facility] Platelets 92(L) 140 - 375 K/CU MM 01/07/2025 4:02 AM EDT [facility] MPV 9.4 9.4 - 12.4 fL 01/07/2025 4:02 AM EDT [facility] Blood Venipuncture / Unknown 01/07/2025 3:03 AM EDT 01/07/2025 3:41 AM EDT us Whitney Moran MD LAB BLOOD ORDERABLES Final Resul t [facility] [address] [place] [address], [facility] [phone] * (ABNORMAL) Comprehensive metabolic panel (01/07/2025 3:03 AM EDT) Sodium 136 136 - 145 meq/L 01/07/2025 4:24 AM EDT [facility] Potassium 3.5 3.4 - 5.1 meq/L 01/07/2025 4:[address] [facility] Chloride 99 98 - 112 meq/L 01/07/2025 4:[address] [facility] CO2 25 22 - 29 meq/L 01/07/2025 4:[address] [facility] Calcium 8.2(L) 8.4 - 10.2 mg/dL 01/07/2025 4:[address] [facility] Glucose 97 74 - 100 mg/dL 01/07/2025 4:[address] [facility] BUN 24.6 8.4 - 25.7 mg/dL 01/07/2025 4:[address] [facility] Creatinine 1.11 0.72 - 1.25 mg/dL 01/07/2025 4:[address] [facility] BUN/Creatinine 22(H) 8 - 20 01/07/2025 4:[address] [facility] eGFR (mL/min/1.73m2) 76 >=60 mL/min/1. 73m2 01/07/2025 4:[address] [facility] Comment:ESTIMATED GFR IS NOT ACCURATE CREATININE CLEARANCE IN PREDICTING GLOMERULAR FILTRATION RATE. ESTIMATED GFR IS NOT APPLICABLE FOR DIALYSIS PATIENTS. Albumin 3.0(L) 3.5 - 5.0 g/dL 01/07/2025 4:[address] [facility] Alkaline Phosphatase 51 40 - 150 U/L 01/07/2025 4:[address] [facility] ALT 392(H) <=45 U/L 01/07/2025 4:[address] [facility] Comment: ALT2 reagent used for testing does not contain P5P supplementation and therefore may miss ALT elevations in patients with B6 deficiency. This population may be as high as 10% in the [place], with risk factors including malabsorption, drug interactions, and alcoholic hepatitis. AST 694(H) 11 - 34 U/L 01/07/2025 4:[address] [facility] Comment: AST2 reagent used for testing does not contain P5P supplementation and therefore may miss AST elevations in patients with B6 deficiency. This population may be as high as 10% in the [place], with risk factors including malabsorption, drug interactions, and alcoholic hepatitis. Total Bilirubin 0.7 0.2 - 1.2 mg/dL 01/07/2025 4:24 AM EDT [facility] Protein, Total 6.6 6.4 - 8.3 g/dL 01/07/2025 4:24 AM EDT [facility] Globulin 3.6 2.5 - 4.1 g/dL 01/07/2025 4:24 AM EDT [facility] Anion Gap 16(H) 4 - 12 01/07/2025 4:24 AM EDT [facility] A/G Ratio 0.8 0.7 - 1.9 01/07/2025 4:24 AM EDT [facility] Osmolality Calc 276.1 mOsm/kg 4:24 AM EDT [facility] Blood Venipuncture / Unknown 01/07/2025 3:03 AM EDT 01/07/2025 3:42 AM EDT us Whitney Moran MD LAB BLOOD ORDERABLES Final Resul t [facility] [address] [phone] * ECG 12 lead (01/06/2025 8:34 PM EDT) SYSTOLIC BLOOD PRESSURE (MCT) 109 mmHg GE MUSE DIASTOLIC BLOOD PRESSURE (MCT) 70 mmHg GE MUSE VENTRICULAR RATE EKG/MIN 84 BPM GE MUSE ATRIAL RATE (MCT) 84 BPM GE MUSE MA Interval 138 ms GE MUSE QRS-INTERVAL (MSEC) 90 ms GE MUSE QT Interval 416 ms GE MUSE QTC Interval 491 ms GE MUSE P [place] 56 degrees GE MUSE R AXIS (MCT) 77 degrees GE MUSE T Wave [place] 79 degrees GE MUSE [place] Diagnosis Normal sinus rhythm Prolonged QT Abnormal ECG When compared with ECG of 05-JAN-2025 18:11, No significant change was found Confirmed by Ayse DAWSON MATTHEW ([id number]) on 01/07/2025 8:45:13 PM GE MUSE 01/06/2025 8:34 PM EDT 01/07/2025 8:45 PM EDT us Whitney Moran MD ECG ORDERABLES Final Result Performing Organization Address City/[facility]/ZIP Co de Phone Number GE MUSE * (ABNORMAL) Hemoglobin and Hematocrit (01/06/2025 6:09 PM EDT) Hemoglobin 9.3(L) 13.7 - 17.5 GM/DL 01/06/2025 6:22 PM EDT [facility] Hematocrit 26.2(L) 40.1 - 51.0 % 01/06/2025 6:22 PM EDT [facility] Blood Venipuncture / Unknown 01/06/2025 6:09 PM EDT 01/06/2025 6:19 PM EDT us Jarek Connor MD LAB BLOOD ORDERABLES Final Res ult Performing Organization Address [facility] Co de Phone Number [facility] [address] [phone] * (ABNORMAL) Glucose, Nova Meter (01/06/2025 6:02 PM EDT) POC-GLUCOSE 140(H) 70 - 110 mg/dL 01/06/2025 6:03 PM EDT [facility] Comment: In the event of poor peripheral blood flow, venous or arterial blood should be used due to the potential of erroneous results. Protocols FollowedNotified Nurse RBV Coroner Forensic Technician [id number] 01/06/2025 6:03 PM EDT [facility] Blood WHOLE BLOOD / Unknown 01/06/2025 6:02 PM EDT 01/06/2025 6:03 PM EDT Narrative [facility] - 01/06/2025 6:03 PM EDT Coroner Forensic Technician ID is - [id number] us Whitney Moran MD POINT OF CARE TEST ORDERABLES Fi nal Result Performing Organization Address [facility]/ZIP Co de Phone Number [facility] [address] [phone] * Glucose, Nova Meter (01/06/2025 5:59 PM EDT) POC-GLUCOSE 90 70 - 110 mg/dL 01/06/2025 6:00 PM EDT [facility] Comment: In the event of poor peripheral blood flow, venous or arterial blood should be used due to the potential of erroneous results. Protocols FollowedNotified Nurse RBV Coroner Forensic Technician [id number] 01/06/2025 6:00 PM EDT [facility] Blood WHOLE BLOOD / Unknown 01/06/2025 5:59 PM EDT 01/06/2025 6:00 PM EDT [facility] - 01/06/2025 6:00 PM EDT Coroner Forensic Technician ID is - [id number] us Whitney Moran MD POINT OF CARE TEST ORDERABLES Fi nal Result [facility] [address] [phone] * Phosphorus (01/06/2025 12:54 PM EDT) Pathologist [facility] Phosphorus 3.0 2.5 - 4.5 mg/dL 01/06/2025 1:35 PM EDT [facility] Blood Venipuncture / Unknown 01/06/2025 12:54 PM EDT 01/06/2025 1:07 PM EDT [facility] - 01/06/2025 1:35 PM EDT Specimen slightly hemolyzed us Whitney Moran MD LAB BLOOD ORDERABLES Final Resul t [facility] [address] [phone] * (ABNORMAL) Hemoglobin and Hematocrit (01/06/2025 12:54 PM EDT) Hemoglobin 9.5(L) 13.7 - 17.5 GM/DL 01/06/2025 1:14 PM EDT [facility] Hematocrit 27.6(L) 40.1 - 51.0 % 01/06/2025 1:14 PM EDT [facility] Blood Venipuncture / Unknown 01/06/2025 12:54 PM EDT 01/06/2025 1:06 PM EDT us Jarek Connor MD LAB BLOOD ORDERABLES Final Res ult Performing Organization Address City/[facility]/ZIP Co de Phone Number [facility] [address] [phone] * (ABNORMAL) Glucose, Nova Meter (01/06/2025 11:18 AM EDT) [facility] Signature POC-GLUCOSE 142(H) 70 - 110 mg/dL 01/06/2025 11:19 AM EDT [facility] Comment: In the event of poor peripheral blood flow, venous or arterial blood should be used due to the potential of erroneous results. Protocols FollowedNotified Nurse RBV Coroner Forensic Technician [id number] 01/06/2025 11:19 AM EDT [facility] Blood WHOLE BLOOD / Unknown 01/06/2025 11:18 AM EDT 01/06/2025 11:19 AM EDT Narrative [facility] - 01/06/2025 11:19 AM EDT Coroner Forensic Technician ID is - [id number] us Whitney Moran MD POINT OF CARE TEST ORDERABLES Fi nal Result Performing Organization Address City/[facility] Co de Phone Number [facility] [address] [phone] * CT brain without IV contrast (01/06/2025 5:18 AM EDT) Anatomical Region Laterality Modality Brain, Head Computed Tomogra phy (CT) 01/06/2025 8:40 AM EDT Impressions 01/06/2025 9:33 AM EDT Stable appearance of hemorrhage overlying the right frontal and parietal lobes and extending over the tentorium consistent with subdural hemorrhage. Images reviewed, interpreted, and dictated by Dr. Ricky Monroe. Transcribed by Robert Amaya PA-C. Narrative 01/06/2025 9:[address] HISTORY: Subdural hemorrhage follow-up. COMPARISON: One day prior. TECHNIQUE: Multiple axial CT images were performed from the foramen magnum to the vertex without enhancement. This study was performed with techniques to keep radiation doses as low as reasonably achievable, (ALARA). Individualized dose reduction techniques using automated exposure control or adjustment of mA and/or kV according to the patient size were employed. FINDINGS: Again seen is high attenuation extra-axial fluid collection overlying the right frontal and parietal lobes. This is similar to the prior study. This measures approximately 4 mm in transverse dimension. The hemorrhage extends posteriorly and inferiorly over the tentorium. No intra-axial hemorrhage is identified. Procedure Note Ricky Monroe MD - 01/06/[address] HISTORY: Subdural hemorrhage follow-up. COMPARISON: One day prior. TECHNIQUE: Multiple axial CT images were performed from the foramen magnum to the vertex without enhancement. This study was performed with techniques to keep radiation doses as low as reasonably achievable, (ALARA). Individualized dose reduction techniques using automated exposure control or adjustment of mA and/or kV according to the patient size were employed. FINDINGS: Again seen is high attenuation extra-axial fluid collection overlying the right frontal and parietal lobes. This is similar to the prior study. This measures approximately 4 mm in transverse dimension. The hemorrhage extends posteriorly and inferiorly over the tentorium. No intra-axial hemorrhage is identified. IMPRESSION: Stable appearance of hemorrhage overlying the right frontal and parietal lobes and extending over the tentorium consistent with subdural hemorrhage. Images reviewed, interpreted, and dictated by Dr. Ricky Monroe. Transcribed by Robert Amaya PA-C. us Russel Guerrero MD IM CT ORDERABLES Final Resul t * (ABNORMAL) Creatine Kinase (CK) (01/06/2025 4:17 AM EDT) Total CK 2,483(H) 30 - 200 U/L 01/06/2025 10:21 AM EDT [facility] Blood Venipuncture / Unknown 01/06/2025 4:17 AM EDT 01/06/2025 4:22 AM EDT Whitney Moran MD LAB BLOOD ORDERABLES Final Resul t [facility] [address] [phone] * Lactic Acid with reflex (SJ) (01/06/2025 4:17 AM EDT) Lactic Acid Level (mmol/L) 0.7 0.5 - 2.2 mmol/L 01/06/2025 4:53 AM EDT [facility] Blood Venipuncture / Unknown 01/06/2025 4:17 AM EDT 01/06/2025 4:22 AM EDT us Ciarra Reed APRN LAB BLOOD ORDERABLES Final R esult Performing Organization Address [facility]/ZIP Co de Phone Number [facility] [address] [phone] * (ABNORMAL) Phosphorus (01/06/2025 4:17 AM EDT) Phosphorus 2.0(L) 2.5 - 4.5 mg/dL 01/06/2025 4:53 AM EDT [facility] Blood Venipuncture / Unknown 01/06/2025 4:17 AM EDT 01/06/2025 4:22 AM EDT us Ciarra Reed APRN LAB BLOOD ORDERABLES Final R esult [facility] [address] [phone] * Magnesium (01/06/2025 4:17 AM EDT) Magnesium 2.5 1.6 - 2.6 mg/dL 01/06/2025 4:53 AM EDT [facility] Blood Venipuncture / Unknown 01/06/2025 4:17 AM EDT 01/06/2025 4:22 AM EDT us Ciarra Perrin Madison KRISTIAN LAB BLOOD ORDERABLES Final R esult [facility] [address] [place] [address], [facility] [phone] * (ABNORMAL) CBC with automated diff (01/06/2025 4:17 AM EDT) WBC 6.4 4.2 - 9.1 K/ L 01/06/2025 4:35 AM EDT [facility] RBC 2.91(L) 4.63 - 6.08 M/ L 01/06/2025 4:35 AM EDT [facility] Hemoglobin 10.4(L) 13.7 - 17.5 GM/DL 01/06/2025 4:35 AM EDT [facility] Hematocrit 30.7(L) 40.1 - 51.0 % 01/06/2025 4:35 AM EDT [facility] MCV 106(H) 79 - 92 fL 01/06/2025 4:35 AM EDT [facility] MCH 35.7(H) 25.7 - 32.2 pg 01/06/2025 4:35 AM EDT [facility] MCHC 33.9 32.3 - 36.5 GM/DL 01/06/2025 4:35 AM EDT [facility] RDW 14.5(H) 11.6 - 14.4 % 01/06/2025 4:35 AM EDT [facility] Platelets 107(L) 140 - 375 K/CU MM 01/06/2025 4:35 AM EDT [facility] MPV 9.4 9.4 - 12.4 fL 01/06/2025 4:35 AM EDT [facility] % Neutros 90(H) 34 - 68 % 01/06/2025 4:35 AM EDT [facility] % Lymphs 4(L) 22 - 53 % 01/06/2025 4:35 AM EDT [facility] % Monos 6 5 - 12 % 01/06/2025 4:35 AM EDT [facility] % Eos 0(L) 1 - 7 % 01/06/2025 4:35 AM EDT [facility] % Baso 0 0 - 1 % 01/06/2025 4:35 AM EDT [facility] NRBC Absolute <0.01 0 - 0.012 K/ul 01/06/2025 4:35 AM EDT [facility] # Neutros 5.72(H) 1.78 - 5.38 K/ L 01/06/2025 4:35 AM EDT [facility] # Lymphs 0.23(L) 1.32 - 3.57 K/ L 01/06/2025 4:35 AM EDT [facility] # Monos 0.36 0.30 - 0.82 K/ L 01/06/2025 4:35 AM EDT [facility] # Eos <0.03(L) 0.04 - 0.54 K/ L 01/06/2025 4:35 AM EDT [facility] # Baso <0.03 0.01 - 0.08 K/ L 01/06/2025 4:35 AM EDT [facility] % Imm Grans 0.80(H) 0.01 - 0.43 % 01/06/2025 4:35 AM EDT [facility] # IG 0.05(H) 0.00 - 0.03 K/uL 01/06/2025 4:35 AM EDT [facility] Blood Venipuncture / Unknown 01/06/2025 4:17 AM EDT 01/06/2025 4:25 AM EDT Narrative [facility] - 01/06/2025 4:35 AM EDT When CBC w/ Auto Diff is ordered the lab will add a Manual Differential as a quality check at no additional charge if: Lymphocytes greater than seventy five percent with normal or increased WBC Monocytes greater than Fifteen percent Basophil greater than four percent Bands >10% or several immature myeloids are seen on scan Blast? Flag noted Atypical Lymph flag noted us Ciarra Reed APRN LAB BLOOD ORDERABLES Final R esult [facility] [address] [phone] * (ABNORMAL) Comprehensive Metabolic Panel (01/06/2025 4:17 AM EDT) Sodium 133(L) 136 - 145 meq/L 01/06/2025 4:54 AM EDT [facility] Potassium 3.6 3.4 - 5.1 meq/L 01/06/2025 4:54 AM EDT [facility] Chloride 93(L) 98 - 112 meq/L 01/06/2025 4:54 AM EDT [facility] CO2 19(L) 22 - 29 meq/L 01/06/2025 4:54 AM EDT [facility] Calcium 8.4 8.4 - 10.2 mg/dL 01/06/2025 4:54 AM EDT [facility] Glucose 149(H) 74 - 100 mg/dL 01/06/2025 4:54 AM EDT [facility] BUN 20.3 8.4 - 25.7 mg/dL 01/06/2025 4:54 AM EDT [facility] Creatinine 1.38(H) 0.72 - 1.25 mg/dL 01/06/2025 4:54 AM T [facility] BUN/Creatinine 15 8 - 20 01/06/2025 4:54 AM EDT [facility] eGFR (mL/min/1.73m2) 59(L) >=60 mL/min/1. 73m2 01/06/2025 4:54 AM EDT [facility] Comment:ESTIMATED GFR IS NOT ACCURATE CREATININE CLEARANCE IN PREDICTING GLOMERULAR FILTRATION RATE. ESTIMATED GFR IS NOT APPLICABLE FOR DIALYSIS PATIENTS. Albumin 3.4(L) 3.5 - 5.0 g/dL 01/06/2025 4:54 AM EDT [facility] Alkaline Phosphatase 58 40 - 150 U/L 01/06/2025 4:[facility] [place] ALT 157(H) <=45 U/L 01/06/2025 4:54 AM EDT [facility] Comment: ALT2 reagent used for testing does not contain P5P supplementation and therefore may miss ALT elevations in patients with B6 deficiency. This population may be as high as 10% in the [place], with risk factors including malabsorption, drug interactions, and alcoholic hepatitis. AST 336(H) 11 - 34 U/L 01/06/2025 4:54 AM EDT [facility] Comment: AST2 reagent used for testing does not contain P5P supplementation and therefore may miss AST elevations in patients with B6 deficiency. This population may be as high as 10% in the [place], with risk factors including malabsorption, drug interactions, and alcoholic hepatitis. Total Bilirubin 1.1 0.2 - 1.2 mg/dL 01/06/2025 4:54 AM EDT [facility] Protein, Total 7.3 6.4 - 8.3 g/dL 01/06/2025 4:54 AM EDT [facility] Globulin 3.9 2.5 - 4.1 g/dL 01/06/2025 4:54 AM EDT [facility] Anion Gap 25(H) 4 - 12 01/06/2025 4:54 AM EDT [facility] A/G Ratio 0.9 0.7 - 1.9 01/06/2025 4:54 AM EDT [facility] Osmolality Calc 271.9 mOsm/kg 4:54 AM EDT [facility] Blood Venipuncture / Unknown 01/06/2025 4:17 AM EDT 01/06/2025 4:22 AM EDT Jarek Connor MD LAB BLOOD ORDERABLES Final Res ult [facility] [address] [phone] * Transfuse pheresed platelets (01/06/2025 1:47 AM EDT) us Rambo Jackson PA-C FS_MODEL_IP_BLOOD TRANSFUSION OR DERABLES Final Result * Transfuse pheresed platelets: 2 Units (01/06/2025 1:47 AM EDT) us Rambo Jors PA-C FS_MODEL_IP_BLOOD TRANSFUSION OR DERABLES Edited Result - Final * (ABNORMAL) CBC - Hemogram (SJ-BKR) (01/06/2025 1:35 AM EDT) WBC 6.3 4.2 - 9.1 K/ L 01/06/2025 1:45 AM EDT [facility] RBC 3.03(L) 4.63 - 6.08 M/ L 01/06/2025 1:45 AM EDT [facility] Hemoglobin 11.2(L) 13.7 - 17.5 GM/DL 01/06/2025 1:45 AM EDT [facility] Hematocrit 33.8(L) 40.1 - 51.0 % 01/06/2025 1:45 AM EDT [facility] MCV 112(H) 79 - 92 fL 01/06/2025 1:45 AM EDT [facility] MCH 37.0(H) 25.7 - 32.2 pg 01/06/2025 1:45 AM EDT [facility] MCHC 33.1 32.3 - 36.5 GM/DL 01/06/2025 1:45 AM EDT [facility] RDW 15.0(H) 11.6 - 14.4 % 01/06/2025 1:45 AM EDT [facility] Platelets 102(L) 140 - 375 K/CU MM 01/06/2025 1:45 AM EDT [facility] MPV 9.5 9.4 - 12.4 fL 01/06/2025 1:45 AM EDT [facility] Blood Venipuncture / Unknown 01/06/2025 1:35 AM EDT 01/06/2025 1:42 AM EDT us Ciarra Reed APRN LAB BLOOD ORDERABLES Final R esult [facility] [address] [phone] * (ABNORMAL) Glucose, Nova Meter (01/05/2025 11:11 PM EDT) [facility] POC-GLUCOSE 151(H) 70 - 110 mg/dL 01/05/2025 11:13 PM EDT [facility] Comment: In the event of poor peripheral blood flow, venous or arterial blood should be used due to the potential of erroneous results. Protocols Followed Coroner Forensic Technician [id number] 01/05/2025 11:13 PM EDT [facility] Blood WHOLE BLOOD / Unknown 01/05/2025 11:11 PM EDT 01/05/2025 11:13 PM EDT Narrative [facility] - 01/05/2025 11:13 PM EDT Coroner Forensic Technician ID is - [id number] us Jarek Connor MD POINT OF CARE TEST ORDERABLES Final Result [facility] [address] [phone] * Transfuse pheresed platelets (01/05/2025 10:47 PM EDT) us Rambo Jackson PA-C FS_MODEL_IP_BLOOD TRANSFUSION OR DERABLES Final Result * (ABNORMAL) Hemoglobin and Hematocrit (01/05/2025 9:47 PM EDT) [facility] Hemoglobin 11.2(L) 13.7 - 17.5 GM/DL 01/05/2025 9:55 PM EDT [facility] Hematocrit 32.5(L) 40.1 - 51.0 % 01/05/2025 9:55 PM EDT [facility] Blood Venipuncture / Unknown 01/05/2025 9:47 PM EDT 01/05/2025 9:47 PM EDT us Jarek Connor MD LAB BLOOD ORDERABLES Final Res ult [facility] [address] [phone] * PT/INR, PTT (01/05/2025 8:39 PM EDT) aPTT 27.0 22.0 - 32.0 seconds 01/05/2025 9:12 PM EDT [facility] Protime 10.3 9.0 - 12.0 seconds 01/05/2025 9:12 PM EDT [facility] INR 0.92 0.80 - 1.10 01/05/2025 9:12 PM EDT [facility] Blood STRUCTURE OF RIGHT HAND / Unknown Venipuncture / Unknown 01/05/2025 8:39 PM EDT 01/05/2025 8:47 PM EDT us Russel Guerrero MD LAB BLOOD ORDERABLES Final Re sult [facility] [address] [phone] * Type and Screen (01/05/2025 8:39 PM EDT) Pathologist [facility] ABO/Rh A Positive 01/05/2025 8:46 PM EDT [facility] ([place]) Antibody Screen Negative 01/05/2025 8:46 PM EDT [facility] ([place]) HISTCHK HIST CHECK PERFORMED 01/05/2025 8:46 PM EDT [facility] ([place]) Blood STRUCTURE OF RIGHT HAND / Unknown Venipuncture / Unknown 01/05/2025 8:39 PM EDT 01/05/2025 8:46 PM EDT us Rambo Jackson PA-C [facility] TEST ORDERABLES F inal Result [facility] ([place]) [address] [place] [address], [facility] [phone] * Prepare Plateletpheresis: 2 Units (01/05/2025 7:57 PM EDT) Issue Date/Time [id number] [facility] ([place]) Product Identification Platelets [facility] ([place]) Product Code [id number] [facility] ([place]) Status Information TRANSFUSED [facility] (AL) Unit Number [id number] [facility]EL[facility] (AL) Blood Type [address] [facility] (AL) Rambo Jackson PA-C FS_MODEL_IP_BLOOD BANK PRODUCT O RDERABLES Final Result [facility] ([place]) [address] [place] [address], [facility] [phone] * CT brain without IV contrast (01/05/2025 6:51 PM EDT) Anatomical Region Laterality Modality Brain, Head Computed Tomogra phy (CT) 01/05/2025 7:20 PM EDT Impressions 01/05/2025 7:25 PM EDT 1. Mixed density right subdural hemorrhage with an acute component measuring 5 mm. Short follow-up is recommended. 2. Probable small hemorrhage along the right cerebellum and small amount of hemorrhage layering along the left tentorium. This was directly communicated to Lana on 01/05/2025 at 7:25 PM. Images reviewed, interpreted, and dictated by Flor Cisneros MD Narrative 01/05/2025 7:[address] SCAN OF THE HEAD WITHOUT CONTRAST INDICATION: Alcohol problem. TECHNIQUE: Multiple axial CT images were performed from the foramen magnum to the vertex without contrast. Coronal reconstruction images were obtained from the axial data. This study was performed with techniques to keep radiation doses as low as reasonably achievable (ALARA). Individualized dose reduction techniques using automated exposure control or adjustment of mA and/or KV according to the patient size were employed. COMPARISON: None. FINDINGS: There is no midline shift or hydrocephalus. There is a mixed density right subdural hemorrhage with an acute component. The acute component measures 5 mm on series 2, image 23. This extends along the right tentorium. There may also be a small extra-axial component along the lateral aspect of the right cerebellum. There is also increased density along the left tentorium and a small left subdural hemorrhage is suspected.. No acute soft tissue abnormality. No acute osseous abnormalities are present. Procedure Note Flor Cisneros MD - 01/05/2025 CT SCAN OF THE HEAD WITHOUT CONTRAST INDICATION: Alcohol problem. TECHNIQUE: Multiple axial CT images were performed from the foramen magnum to the vertex without contrast. Coronal reconstruction images were obtained from the axial data. This study was performed with techniques to keep radiation doses as low as reasonably achievable (ALARA). Individualized dose reduction techniques using automated exposure control or adjustment of mA and/or KV according to the patient size were employed. COMPARISON: None. FINDINGS: There is no midline shift or hydrocephalus. There is a mixed density right subdural hemorrhage with an acute component. The acute component measures 5 mm on series 2, image 23. This extends along the right tentorium. There may also be a small extra-axial component along the lateral aspect of the right cerebellum. There is also increased density along the left tentorium and a small left subdural hemorrhage is suspected.. No acute soft tissue abnormality. No acute osseous abnormalities are present. IMPRESSION: 1. Mixed density right subdural hemorrhage with an acute component measuring 5 mm. Short follow-up is recommended. 2. Probable small hemorrhage along the right cerebellum and small amount of hemorrhage layering along the left tentorium. This was directly communicated to Lana on 01/05/2025 at 7:25 PM. Images reviewed, interpreted, and dictated by Flor Cisneros MD us Rambo Jackson PA-C IMG CT ORDERABLES Final Result * (ABNORMAL) Magnesium (01/05/2025 6:32 PM EDT) Magnesium 1.5(L) 1.6 - 2.6 mg/dL 01/05/2025 9:43 PM EDT [facility] Blood Venipuncture / Unknown 01/05/2025 6:32 PM EDT 01/05/2025 6:39 PM EDT us Jarek Connor MD LAB BLOOD ORDERABLES Final Res ult [facility] [address] [phone] * ABO/RH Confirmation/Retype (01/05/2025 6:32 PM EDT) Pathologist [facility] RETYPE A Positive 01/05/2025 8:15 PM EDT [facility] ([place]) Comment:[id number] Blood Venipuncture / Unknown 01/05/2025 6:32 PM EDT 01/05/2025 8:15 PM EDT Rambo Jackson PA-C [facility] TEST ORDERABLES F inal Result [facility] ([place]) [address] [place] [address], [facility] [phone] * (ABNORMAL) CBC Scan (01/05/2025 6:32 PM EDT) [facility] Platelet Estimate Decreased (A) Adequate 01/05/2025 7:18 PM EDT [facility] RBC Morphology abnormal( A) Normal 01/05/2025 7:18 PM EDT [facility] Anisocytosis 1+ 01/05/2025 7:18 PM EDT [facility] Hypochromia 1+ 01/05/2025 7:18 PM EDT [facility] Blood Venipuncture / Unknown 01/05/2025 6:32 PM EDT 01/05/2025 6:39 PM EDT Rambo Jackson PA-C LAB BLOOD ORDERABLES Final Resul t [facility] [address] [place] [address], [facility] [phone] * (ABNORMAL) Comprehensive metabolic panel (01/05/2025 6:32 PM EDT) [facility] Sodium 135(L) 136 - 145 meq/L 01/05/2025 7:22 PM EDT [facility] Potassium 4.1 3.4 - 5.1 meq/L 01/05/2025 7:[address] [facility] Chloride 92(L) 98 - 112 meq/L 01/05/2025 7:[address] [facility] CO2 15(L) 22 - 29 meq/L 01/05/2025 7:[address] [facility] Calcium 9.0 8.4 - 10.2 mg/dL 01/05/2025 7:[address] [facility] Glucose 133(H) 74 - 100 mg/dL 01/05/2025 7:[address] [facility] BUN 23.7 8.4 - 25.7 mg/dL 01/05/2025 7:[address] [facility] Creatinine 1.37(H) 0.72 - 1.25 mg/dL 01/05/2025 7:[address] [facility] BUN/Creatinine 17 8 - 20 01/05/2025 7:[address] [facility] eGFR (mL/min/1.73m2) 59(L) >=60 mL/min/1. 73m2 01/05/2025 7:[address] [facility] Comment:ESTIMATED GFR IS NOT ACCURATE CREATININE CLEARANCE IN PREDICTING GLOMERULAR FILTRATION RATE. ESTIMATED GFR IS NOT APPLICABLE FOR DIALYSIS PATIENTS. Albumin 3.7 3.5 - 5.0 g/dL 01/05/2025 7:[address] [facility] Alkaline Phosphatase 60 40 - 150 U/L 01/05/2025 7:[address] [facility] ALT 82(H) <=45 U/L 01/05/2025 7:[address] [facility] Comment: ALT2 reagent used for testing does not contain P5P supplementation and therefore may miss ALT elevations in patients with B6 deficiency. This population may be as high as 10% in the [place], with risk factors including malabsorption, drug interactions, and alcoholic hepatitis. AST 151(H) 11 - 34 U/L 01/05/2025 7:[address] [facility] Comment: AST2 reagent used for testing does not contain P5P supplementation and therefore may miss AST elevations in patients with B6 deficiency. This population may be as high as 10% in the [place], with risk factors including malabsorption, drug interactions, and alcoholic hepatitis. Total Bilirubin 1.2 0.2 - 1.2 mg/dL 01/05/2025 7:22 PM EDT [facility] Protein, Total 8.0 6.4 - 8.3 g/dL 01/05/2025 7:22 PM EDT [facility] Globulin 4.3(H) 2.5 - 4.1 g/dL 01/05/2025 7:22 PM EDT [facility] Anion Gap 32(H) 4 - 12 01/05/2025 7:22 PM EDT [facility] A/G Ratio 0.9 0.7 - 1.9 01/05/2025 7:22 PM EDT [facility] Osmolality Calc 276.0 mOsm/kg 7:22 PM EDT [facility] Blood Venipuncture / Unknown 01/05/2025 6:32 PM EDT 01/05/2025 6:39 PM EDT us Rambo Jackson PA-C LAB BLOOD ORDERABLES Final Resul t [facility] [address] [phone] * (ABNORMAL) CBC with automated diff (01/05/2025 6:32 PM EDT) WBC 7.1 4.2 - 9.1 K/ L 01/05/2025 7:18 PM EDT [facility] RBC 3.13(L) 4.63 - 6.08 M/ L 01/05/2025 7:18 PM EDT [facility] Hemoglobin 11.2(L) 13.7 - 17.5 GM/DL 01/05/2025 7:18 PM EDT [facility] Hematocrit 31.9(L) 40.1 - 51.0 % 01/05/2025 7:18 PM EDT [facility] MCV 102(H) 79 - 92 fL 01/05/2025 7:18 PM EDT [facility] MCH 35.8(H) 25.7 - 32.2 pg 01/05/2025 7:18 PM EDT [facility] MCHC 35.1 32.3 - 36.5 GM/DL 01/05/2025 7:18 PM EDT [facility] RDW 14.4 11.6 - 14.4 % 01/05/2025 7:18 PM EDT [facility] Platelets 62(L) 140 - 375 K/CU MM 01/05/2025 7:18 PM EDT [facility] MPV 10.0 9.4 - 12.4 fL 01/05/2025 7:18 PM EDT [facility] % Neutros 90(H) 34 - 68 % 01/05/2025 7:18 PM EDT [facility] % Lymphs 3(L) 22 - 53 % 01/05/2025 7:18 PM EDT [facility] % Monos 6 5 - 12 % 01/05/2025 7:18 PM EDT [facility] % Eos 0(L) 1 - 7 % 01/05/2025 7:18 PM EDT [facility] % Baso 0 0 - 1 % 01/05/2025 7:18 PM EDT [facility] NRBC Absolute <0.01 0 - 0.012 K/ul 01/05/2025 7:18 PM EDT [facility] # Neutros 6.40(H) 1.78 - 5.38 K/ L 01/05/2025 7:18 PM EDT [facility] # Lymphs 0.23(L) 1.32 - 3.57 K/ L 01/05/2025 7:18 PM EDT [facility] # Monos 0.41 0.30 - 0.82 K/ L 01/05/2025 7:18 PM EDT [facility] # Eos <0.03(L) 0.04 - 0.54 K/ L 01/05/2025 7:18 PM EDT [facility] # Baso <0.03 0.01 - 0.08 K/ L 01/05/2025 7:18 PM EDT [facility] % Imm Grans 0.80(H) 0.01 - 0.43 % 01/05/2025 7:18 PM EDT [facility] # IG 0.06(H) 0.00 - 0.03 K/uL 01/05/2025 7:18 PM EDT [facility] Blood Venipuncture / Unknown 01/05/2025 6:32 PM EDT 01/05/2025 6:39 PM EDT Narrative [facility] - 01/05/2025 7:18 PM EDT When CBC w/ Auto Diff is ordered the lab will add a Manual Differential as a quality check at no additional charge if: Lymphocytes greater than seventy five percent with normal or increased WBC Monocytes greater than Fifteen percent Basophil greater than four percent Bands >10% or several immature myeloids are seen on scan Blast? Flag noted Atypical Lymph flag noted Rambo Jackson PA-C LAB BLOOD ORDERABLES Final Resul t Performing Organization Address [facility] de Phone Number [facility] [address] [phone] * (ABNORMAL) Acetaminophen level (01/05/2025 6:32 PM EDT) Acetaminophen Level <3(L) 10 - 30 ug/mL 01/05/2025 7:31 PM EDT [facility] Blood Venipuncture / Unknown 01/05/2025 6:32 PM EDT 01/05/2025 6:39 PM EDT Rambo Jackson PA-C LAB BLOOD ORDERABLES Final Resul t Performing Organization Address [facility] Co de Phone Number [facility] [address] [phone] * (ABNORMAL) Salicylate level (01/05/2025 6:32 PM EDT) Salicylate Lvl <5.0(L) 15.0 - 30.0 mg/dL 01/05/2025 7:31 PM EDT [facility] Comment: <20 mg/dL therapeutic >30 mg/dL toxic >60 mg/dL fatalities Occur Blood Venipuncture / Unknown 01/05/2025 6:32 PM EDT 01/05/2025 6:39 PM EDT [facility] - 01/05/2025 7:31 PM EDT Therapeutic: 15 - 30 mg/dL Toxic Levels: > 30 mg/dL Lethal: > 70 mg/dL Rambo FIGUEREDO-C LAB BLOOD ORDERABLES Final Resul t Performing Organization Address [facility] Phone Number [facility] [address] [place] [address] * Ethanol (01/05/2025 6:32 PM EDT) Ethanol Lvl <10 <=10 mg/dL 01/05/2025 7:31 PM EDT [facility] Blood Venipuncture / Unknown 01/05/2025 6:32 PM EDT 01/05/2025 6:39 PM EDT [facility] - 01/05/2025 7:31 PM EDT Lower limit of detection is 10.00 mg/dL. 50-100 mg/dL
Impaired Reflexes: 100-300 mg/dL
Depression of FINAL [employer]AR [employer]OX EXAMINER: 300 mg/dL or >
Coma may occur; 400 mg/dL or >
may occur

This test is not intended for legal purposes or use in employment related testing. Rambo Jackson PA-C LAB BLOOD ORDERABLES Final Resul t Performing Organization Address [facility] Phone Number [facility] [address] [phone] * Critical Care (01/05/2025 6:18 PM EDT) Chris Patel MD - 01/05/2025 6:18 PM EDT Chris Zamudio MD 01/06/2025 5:55 AM Critical Care Performed by: Chris Zamudio MD Authorized by: Jarek Connor MD Critical care provider statement: Critical care time (minutes): 31 Critical care time was exclusive of: Separately billable procedures and treating other patients Critical care was necessary to treat or prevent imminent or life-threatening deterioration of the following conditions: FIN[employer]ER failure or compromise Critical care was time spent personally by me on the following activities: Discussions with consultants, examination of patient, ordering and performing treatments and interventions, ordering and review of laboratory studies, ordering and review of radiographic studies, pulse oximetry, re-evaluation of patient's condition and review of old charts us Jarek Connor MD PROCEDURE/MINOR SURGICAL ORDER PRANAY Final Result * ECG 12 lead (01/05/2025 6:11 PM EDT) VENTRICULAR RATE EKG/MIN 108 BPM GE MUSE ATRIAL RATE (MCT) 108 BPM GE MUSE MA Interval 121 ms GE MUSE QRS-INTERVAL (MSEC) 83 ms GE MUSE QT Interval 342 ms GE MUSE QTC Interval 458 ms GE MUSE P [place] 45 degrees GE MUSE R AXIS (MCT) 73 degrees GE MUSE T Wave [place] 64 degrees GE MUSE [place] Diagnosis Sinus tachycardia Baseline artifact No previous ECGs available Confirmed by Ayse MENDOZA STEVE ([id number]) on 01/06/2025 1:10:26 AM GE MUSE 01/05/2025 6:11 PM EDT 01/06/2025 1:10 AM EDT us Rambo Jackson PA-C ECG ORDERABLES Final Result GE MUSE * EKG-SCANNED (01/05/2025) Narrative 01/05/2025 Ordered by an unspecified provider. us Default Scanning Provider SCAN ORDERS Final Result * EKG-SCANNED (01/05/2025) Narrative 01/05/2025 Ordered by an unspecified provider. us Default Scanning Provider SCAN ORDERS Final Result * EKG-SCANNED (01/05/2025) Narrative 01/05/2025 Ordered by an unspecified provider. us Default Scanning Provider SCAN ORDERS Final Result documented in this encounter Visit Diagnoses Diagnosis SDH (subdural hematoma) (HCC)- Primary Subdural hemorrhage Cerebellar stroke (HCC) Subdural hematoma (HCC) Subdural hemorrhage Thrombocytopenia (HCC) Unspecified thrombocytopenia Conjunctivitis of left eye, unspecified conjunctivitis type documented in this encounter Admitting Diagnoses Diagnosis SDH (subdural hematoma) (HCC) Subdural hemorrhage documented in this encounter Administered Medications Inactive Administered Medications - up to 3 most recent administrations Medication Order MAR Action Action Date Dose Rate Site acetaminophen (TYLENOL) tablet 1,000 mg 1,000 mg Every 6 hours PRN, oral, fever greater than or equal to 38C, Starting on Sat01/05/25 at 2058, Recommended maximum dose of acetaminophen is 4000 mg from all sources in 24 hours Given 01/13/2025 12:46 PM EDT 1,000 mg Given 01/13/2025 4:00 AM EDT 1,000 mg Given 01/12/2025 10:30 PM EDT 1,000 mg amLODIPine (NORVASC) tablet 2.5 mg 2.5 mg Daily, oral, First dose (after last modification) on Sat01/13/25 at 0900, Antihypertensive - Check BP - Check Pulse Given 01/15/2025 8:08 AM EDT 2. 5 mg Given 01/14/2025 8:51 AM EDT 2.5 mg amLODIPine (NORVASC) tablet 5 mg 5 mg Daily, oral, First dose on Sat01/12/25 at 1030, Antihypertensive - Check BP - Check Pulse Given 01/12/2025 10:25 AM EDT 5 mg cloNIDine (CATAPRES) tablet 0.1 mg 0.1 mg Every 4 hours PRN, oral, high blood pressure (specify), for adrenergic symptoms of sweating, itching, nausea or tremors, Starting on Sat01/05/25 at 2101, hold for heart rate less than 55/min, systolic BP less than 90 mmHg Look-alike/Sound-alike medication Given 01/10/2025 8:51 AM EDT 0.1 mg Given 01/07/2025 9:11 AM EDT 0.1 mg cloNIDine (CATAPRES) tablet 0.1 mg 0.1 mg 3 times daily, oral, First dose on Sat01/08/25 at 1130, Look-alike/Sound-alike medication, On hold since Sat01/13/2025 at 0911 until manually unheld Given 01/12/2025 10:30 PM EDT 0.1 mg Given 01/12/2025 3:57 PM EDT 0.1 mg Given 01/12/2025 10:26 AM EDT 0.1 mg dextrose 5 % infusion 100 mL/hr Continuous, intravenous, Starting on Sat01/13/25 at 1000, For 10 hours New Bag 01/13/2025 12:27 PM EDT 100 mL/hr 100 mL/hr dextrose 5 %-sodium chloride 0.45 % (D5-1/2NS) 1,000 mL with magnesium sulfate 2 g, MVI, adult 10 mL, folic acid 1 mg, thiamine 100 mg infusion at 125 mL/hr, intravenous, Daily, First dose on Sat01/05/25 at 2109, For 3 days New Bag 01/07/2025 8:19 AM EDT 125 mL/hr New Bag 01/06/2025 8:35 AM EDT 125 mL/hr Rate/Dose Verify 01/06/2025 2:41 AM EDT 125 mL/ hr diazePAM (VALIUM) injection 5 mg 5 mg Every 5 min PRN, intravenous, seizures, Starting on Sat01/05/25 at 2100, Second Line treatment for active seizure. Give if IV lorazepam is not available. May repeat every 5 minutes as needed for continued seizure activity. Contact prescriber if more than 2 doses needed. Given 01/06/2025 1:39 AM EDT 5 mg diazePAM (VALIUM) injection 5 mg 5 mg Every 10 min PRN, intravenous, sedation, withdrawal, Starting on Sat01/05/25 at 2100, ABRIL-Chente 8-10 Given 01/06/2025 4:57 AM EDT 5 mg diazePAM (VALIUM) injection 7.5 mg 7.5 mg Every 10 min PRN, intravenous, sedation, withdrawal, Starting on Sat01/05/25 at 2100, ABRIL-Chente 11-12 Given 01/05/2025 11:57 PM EDT 7.5 mg docusate sodium (COLACE) capsule 100 mg 100 mg 2 times daily PRN, oral, constipation, Starting on Sat01/05/25 at 2057, Bowel Regimen - for prevention of constipation. erythromycin 5 mg/gram (0.5 %) ophthalmic ointment 1 g left eye, Once, On Sat01/05/25 at 1825, For 1 dose Given 01/05/2025 7:18 PM EDT 1 g erythromycin 5 mg/gram (0.5 %) ophthalmic ointment 1 g left eye, Every 4 hours, First dose (after last reorder) on Sat01/05/25 at 2115 Given 01/13/2025 8:20 AM EDT 1 g Given 01/13/2025 5:53 AM EDT 1 g Given 01/13/2025 1:50 AM EDT 1 g folic acid (FOLVITE) tablet 1 mg 1 mg Daily, oral, First dose on Sat01/08/25 at 1130 Given 01/15/2025 8:08 AM EDT 1 mg Given 01/14/2025 8:51 AM EDT 1 mg Given 01/13/2025 8:19 AM EDT 1 mg hydrALAZINE (APRESOLINE) injection 10 mg 10 mg Every 4 hours PRN, intravenous, hypertension (sbp greater than 140), Starting on Sat01/05/25 at 2058, Hold if SBP < 100 mmHg, DBP < 50 mmHg, or patient is on pressor. Look-alike/Sound-alike medication Given 01/12/2025 12:19 AM EDT 10 mg Given 01/09/2025 9:06 PM EDT 10 mg LORazepam (ATIVAN) injection 1 mg 1 mg Once, intravenous, On Sat01/05/25 at 1825, For 1 dose, For IV Push administration, dilute with an equal volume of Sodium Chloride 0.9% or Sterile Water for Injection before administration. Given 01/05/2025 6:38 PM EDT 1 mg LORazepam (ATIVAN) tablet 1 mg 1 mg Every 4 hours, oral, First dose (after last modification) on Sat01/07/25 at 1200 Given 01/09/2025 8:31 AM EDT 1 mg Given 01/09/2025 2:28 AM EDT 1 mg Given 01/08/2025 7:36 PM EDT 1 mg LORazepam (ATIVAN) tablet 1 mg 1 mg Every 6 hours, oral, First dose on Sat01/09/25 at 1400 Given 01/13/2025 9:42 AM EDT 1 mg Given 01/13/2025 4:00 AM EDT 1 mg Given 01/12/2025 10:30 PM EDT 1 mg LORazepam (ATIVAN) tablet 2 mg 2 mg Every 4 hours, oral, First dose on Sat01/06/25 at 1130 Given 01/07/2025 7:26 AM EDT 2 mg Given 01/07/2025 3:13 AM EDT 2 mg Given 01/06/2025 9:16 PM EDT 2 mg magnesium oxide (MAG-OX) tablet 200 mg 200 mg Daily with breakfast, oral, First dose on Sat01/11/25 at 1030 Given 01/15/2025 8:08 AM EDT 200 mg Given 01/14/2025 8:51 AM EDT 200 mg Given 01/13/2025 8:19 AM EDT 200 mg magnesium sulfate IVPB 2 g in sterile water 50 mL (premix) at 25 mL/hr, Administer over 120 Minutes, intravenous, Daily as needed, for magnesium level 1.3 to 1.7 mg/dL, Starting on Sat01/05/25 at 2100, If magnesium is replaced per protocol order, recheck 1 hour after replacement and the next morning. magnesium sulfate IVPB 2 g in sterile water 50 mL (premix) at 25 mL/hr, Administer over 120 Minutes, intravenous, 2 times daily PRN, for magnesium level less than 1.3 mg/dL, Starting on Sat01/05/25 at 2100, Total dose of 4 g for each low magnesium result. If magnesium is replaced per protocol order, recheck 1 hour after replacement and the next morning. magnesium sulfate IVPB 2 g in sterile water 50 mL (premix) at 25 mL/hr, Administer over 120 Minutes, intravenous, Once, On Sat01/06/25 at 0100, For 1 dose IVPB Started 01/06/2025 1:23 AM EDT 2 g 25 mL/hr magnesium sulfate IVPB 2 g in sterile water 50 mL (premix) at 25 mL/hr, Administer over 120 Minutes, intravenous, Once, On Sat01/10/25 at 0930, For 1 dose IVPB Started 01/10/2025 9:12 AM EDT 2 g 25 mL/hr melatonin tablet 5 mg 5 mg Every Night PRN, oral, insomnia, Starting on Sat01/05/25 at 2058 metoclopramide HCl (REGLAN) injection 5 mg 5 mg Once, intravenous, On Sat01/13/25 at 1500, For 1 dose Given 01/13/2025 2:53 PM EDT 5 mg metoprolol tartrate (LOPRESSOR) tablet 50 mg 50 mg 2 times daily, oral, First dose on Sat01/08/25 at 1130, Hold for systolic BP < 90 mmHg or for HR < 50 BPM Given 01/15/2025 8:08 AM EDT 50 mg Given 01/14/2025 9:47 PM EDT 50 mg Given 01/14/2025 8:51 AM EDT 50 mg morphine injection 2 mg 2 mg Every 4 hours PRN, intravenous, moderate pain (4-6), severe pain (7-10), Starting on Sat01/05/25 at 2057, If inadequate response (less than 50% reduction in pain score) within 60 minutes, proceed to next-line agent for same PRN reason or contact provider if no further options ordered. Given 01/14/2025 5:22 PM EDT 2 mg Given 01/13/2025 11:12 PM EDT 2 mg morphine injection 2 mg 2 mg Once, intravenous, On Sat01/13/25 at 1500, For 1 dose Given 01/13/2025 2:54 PM EDT 2 mg multivitamin (THERAGRAN) tablet 1 tablet 1 tablet Daily, oral, First dose on Sat01/12/25 at 1030 Given 01/15/2025 8:08 AM EDT 1 tablet Given 01/14/2025 8:51 AM EDT 1 tablet Given 01/13/2025 8:19 AM EDT 1 tablet naloxone (NARCAN) injection 0.2 mg 0.2 mg Every 2 min PRN, intravenous, opioid reversal, respiratory depression, Starting on Sat01/05/25 at 2058, Give for respiratory rate less than 10 breaths/min or if patient is difficult to arouse. Max dose = 10 mg. Call provider. ondansetron (ZOFRAN) injection 4 mg 4 mg Every 4 hours PRN, intravenous, nausea, vomiting, Starting on Sat01/05/25 at 2057, Give IV if patient is unable to take orally. 1st line If inadequate response within 60 minutes, proceed to next-line agent for same PRN reason or contact provider if no further options ordered. For IV push, give over 2 - 5 minutes. ondansetron (ZOFRAN-ODT) disintegrating tablet 4 mg 4 mg Every 8 hours PRN, oral, nausea, vomiting, Starting on Sat01/05/25 at 2057, 1st line. If inadequate response within 60 minutes, proceed to next-line agent for same PRN reason or contact provider if no further options ordered. pantoprazole (PROTONIX) EC tablet 40 mg 40 mg Daily, oral, First dose on Sat01/05/25 at 2110, * DO NOT CRUSH THIS DOSAGE FORM * Given 01/15/2025 8:09 AM EDT 4 0 mg Given 01/14/2025 8:51 AM EDT 40 mg Given 01/13/2025 8:18 AM EDT 40 mg phytonadione (vitamin K1) (AQUA-MEPHYTON) 10 mg in dextrose 5 % (D5W) 50 mL IVPB 10 mg Once, intravenous, at 100 mL/hr, On Sat01/05/25 at 2024, For 1 dose IVPB Started 01/05/2025 9:35 PM EDT 10 mg 100 mL/hr potassium chloride (KLOR-CON) ER tablet 40 mEq 40 mEq 4 times daily PRN, oral, for potassium less than or EQUAL to 3.4 mmol/L, Starting on Sat01/05/25 at 2056, Do not crush KCl tablets. If potassium is replaced per protocol order, recheck potassium 2 hour after replacement and the next morning. Given 01/10/2025 9:11 AM EDT 40 mEq Given 01/08/2025 4:01 AM EDT 40 mEq potassium chloride (KLOR-CON) ER tablet 40 mEq 40 mEq Once, oral, On Sat01/08/25 at 1130, For 1 dose, DO NOT CRUSH THIS DOSAGE FORM. Given 01/08/2025 1:15 PM EDT 40 mEq potassium chloride IVPB 10 mEq in 100 mL sterile water (premix) 10 mEq Every hour PRN, intravenous, Administer over 60 Minutes, for potassium less than or equal to 3.4 mmol/L, Starting on Sat01/05/25 at 2056, Total Dose 40 mEq, use only if unable to administer PO. Max Rate 10mEq/hr. If potassium is replaced per protocol order, recheck 1 hour after replacement and the next morning. potassium phosphate 15 mmol in sodium chloride 0.9 % (NS) 250 mL infusion 15 mmol Once, intravenous, Administer over 5 Hours, On Sat01/06/25 at 0600, For 1 dose, *HIGH ALERT MEDICATION* IVPB Started 01/06/2025 5:44 AM EDT 15 mmol 50 mL/hr sodium chloride 0.9 % infusion 50 mL/hr Continuous, intravenous, Starting on Sat01/06/25 at 1130 Rate/Dose Change 01/07/2025 9:39 AM EDT 50 mL/hr 50 mL/hr New Bag 01/07/2025 12:23 AM EDT 80 mL/hr 80 mL/hr New Bag 01/06/2025 12:32 PM EDT 80 mL/hr 80 mL/hr sodium chloride 0.9% (NS) bolus 1,000 mL Once, intravenous, Administer over 60 Minutes, On Sat01/05/25 at 1825, For 1 dose New Bag 01/05/2025 6:39 PM EDT 1,000 mLs 1000 mL/hr thiamine tablet 100 mg 100 mg Daily, oral, First dose on Sat01/08/25 at 1130 Given 01/09/2025 8:31 AM EDT 100 mg Given 01/08/2025 1:13 PM EDT 100 mg thiamine tablet 200 mg 200 mg Daily, oral, First dose (after last modification) on Sat01/10/25 at 0900 Given 01/15/2025 8:08 AM EDT 200 mg Given 01/14/2025 8:52 AM EDT 200 mg Given 01/13/2025 8:20 AM EDT 200 mg traMADoL (ULTRAM) tablet 50 mg 50 mg Every 6 hours PRN, oral, moderate pain (4-6), Starting on Evelia 01/14/25 at 1203 Given 01/15/2025 5:11 AM EDT 50 mg Given 01/14/2025 9:47 PM EDT 50 mg Given 01/14/2025 12:26 PM EDT 50 mg traZODone (DESYREL) tablet 50 mg 50 mg Every Night PRN, oral, insomnia, Starting on Evelia 01/14/25 at 2018, Hold if QTc interval more than 490 Given 01/14/2025 9:47 PM EDT 50 mg documented in this encounter Active and Recently Administered Medications Times are shown in EDT. Scheduled Medication Order 01/13/2025 01/14/2025 01/15/2025 amLODIPine (NORVASC) tablet 2.5 mg 2.5 mg Daily, oral, First dose (after last modification) on Sat01/13/25 at 0900, Antihypertensive - Check BP - Check Pulse 0819 (Hold - Provider: Ivonne Medina - Reason: Per MD Order) 0851 (Given - Provider: Ha Hernandez RN) 0808 (Given - Provider: Ha Hernandez RN) cloNIDine (CATAPRES) tablet 0.1 mg 0.1 mg 3 times daily, oral, First dose on Sat01/08/25 at 1130, Look-alike/Sound-alike medication, On hold since Sat01/13/2025 at 0911 until manually unheld 0819 (Hold - Provider: Ivonne Medina - Reason: Per MD Order)0911 (Held by provider - Provider: Carlee Sutton MD)1500 (Automatically Held - Provider: Carlee Sutton MD)2100 (Automatically Held - Provider: Carlee Sutton MD) 0900 (Not Given - Provider: Ha Hernandez RN - Reason: Per MD Order)1500 (Not Given - Provider: Ha Hernandez RN - Reason: Per MD Order)2100 (Automatically Held - Provider: Carlee Sutton MD) 0900 (Not Given - Provider: Ha Hernandez RN - Reason: Per MD Order)1332 (Unheld by provider - Provider: Automatic Discharge Provider) erythromycin 5 mg/gram (0.5 %) ophthalmic ointment 1 g (CANCELED) left eye, Every 4 hours, First dose (after last reorder) on Sat01/05/25 at 2115 0150 (Given - Provider: Golden Helm, SHANELL)0553 (Given - Provider: Golden Helm RN)0820 (Given - Provider: Ivonne Medina) folic acid (FOLVITE) tablet 1 mg 1 mg Daily, oral, First dose on Sat01/08/25 at 1130 0819 (Given - Provider: Ivonne Medina) 0851 (Given - Provider: Ha Hernandez RN) 0808 (Given - Provider: Ha Hernandez, RN) LORazepam (ATIVAN) tablet 1 mg (CANCELED) 1 mg Every 6 hours, oral, First dose on Sat01/09/25 at 1400 0400 (Given - Provider: Golden Helm RN)0942 (Given - Provider: Ivonne Medina)1600 (Due - Provider: Jeff Quiñonez [facility]) magnesium oxide (MAG-OX) tablet 200 mg 200 mg Daily with breakfast, oral, First dose on Sat01/11/25 at 1030 0819 (Given - Provider: Ivonne Medina) 0851 (Given - Provider: Ha Hernandez RN) 0808 (Given - Provider: Ha Hernandez RN) metoclopramide HCl (REGLAN) injection 5 mg (COMPLETED) 5 mg Once, intravenous, On Sat01/13/25 at 1500, For 1 dose 1453 (Given - Provider: Ivonne Medina) metoprolol tartrate (LOPRESSOR) tablet 50 mg 50 mg 2 times daily, oral, First dose on Sat01/08/25 at 1130, Hold for systolic BP < 90 mmHg or for HR < 50 BPM 0819 (Hold - Provider: Ivonne Medina - Reason: Per MD Order)2127 (Given - Provider: Golden Helm RN) 0851 (Given - Provider: Ha Hernandez RN)2147 (Given - Provider: Golden Helm RN) 0808 (Given - Provider: Ha Hernandez RN) morphine injection 2 mg (COMPLETED) 2 mg Once, intravenous, On Sat01/13/25 at 1500, For 1 dose 1454 (Given - Provider: Ivonne Medina) multivitamin (THERAGRAN) tablet 1 tablet 1 tablet Daily, oral, First dose on Sat01/12/25 at 1030 0819 (Given - Provider: Ivonne Medina) 0851 (Given - Provider: Ha Hernandez, SHANELL) 0808 (Given - Provider: Ha Hernandez, RN) pantoprazole (PROTONIX) EC tablet 40 mg 40 mg Daily, oral, First dose on Sat01/05/25 at 2110, * DO NOT CRUSH THIS DOSAGE FORM * 0818 (Given - Provider: Ivonne Medina) 0851 (Given - Provider: Ha Hernandez, RN) 0809 (Given - Provider: Ha Hernandez, RN) potassium chloride (KLOR-CON) ER tablet 40 mEq 40 mEq Once, oral, On Sat01/10/25 at 0930, For 1 dose, DO NOT CRUSH THIS DOSAGE FORM. thiamine tablet 200 mg 200 mg Daily, oral, First dose (after last modification) on Sat01/10/25 at 0900 0820 (Given - Provider: Ivonne Medina) 0852 (Given - Provider: Ha Hernandez, RN) 0808 (Given - Provider: Ha Hernandez, RN) Continuous Medication Order 01/13/2025 01/14/2025 01/15/2025 dextrose 5 % infusion () 100 mL/hr Continuous, intravenous, Starting on Sat01/13/25 at 1000, For 10 hours 1227 (New Bag - Provider: Steffany Gunn, RN)2015 (Stopped - Provider: Golden Helm, RN) PRN Medication Order 01/13/2025 01/14/2025 01/15/2025 acetaminophen (TYLENOL) tablet 1,000 mg 1,000 mg Every 6 hours PRN, oral, fever greater than or equal to 38C, Starting on Sat01/05/25 at 2057, Recommended maximum dose of acetaminophen is 4000 mg from all sources in 24 hours 0400 (Given - Provider: Golden Helm, SHANELL)1246 (Given - Provider: Ivonne Medina) cloNIDine (CATAPRES) tablet 0.1 mg 0.1 mg Every 4 hours PRN, oral, high blood pressure (specify), for adrenergic symptoms of sweating, itching, nausea or tremors, Starting on Sat01/05/25 at 2101, hold for heart rate less than 55/min, systolic BP less than 90 mmHg Look-alike/Sound-alike medication diazePAM (VALIUM) injection 5 mg 5 mg Every 5 min PRN, intravenous, seizures, Starting on Sat01/05/25 at 2101, Second Line treatment for active seizure. Give if IV lorazepam is not available. May repeat every 5 minutes as needed for continued seizure activity. Contact prescriber if more than 2 doses needed. docusate sodium (COLACE) capsule 100 mg 100 mg 2 times daily PRN, oral, constipation, Starting on Sat01/05/25 at 2058, Bowel Regimen - for prevention of constipation. hydrALAZINE (APRESOLINE) injection 10 mg 10 mg Every 4 hours PRN, intravenous, hypertension (sbp greater than 140), Starting on Sat01/05/25 at 2058, Hold if SBP < 100 mmHg, DBP < 50 mmHg, or patient is on pressor. Look-alike/Sound-alike medication magnesium sulfate IVPB 2 g in sterile water 50 mL (premix) at 25 mL/hr, Administer over 120 Minutes, intravenous, Daily as needed, for magnesium level 1.3 to 1.7 mg/dL, Starting on Sat01/05/25 at 2099, If magnesium is replaced per protocol order, recheck 1 hour after replacement and the next morning. magnesium sulfate IVPB 2 g in sterile water 50 mL (premix) at 25 mL/hr, Administer over 120 Minutes, intravenous, 2 times daily PRN, for magnesium level less than 1.3 mg/dL, Starting on Sat01/05/25 at 2099, Total dose of 4 g for each low magnesium result. If magnesium is replaced per protocol order, recheck 1 hour after replacement and the next morning. melatonin tablet 5 mg 5 mg Every Night PRN, oral, insomnia, Starting on Sat01/05/25 at 2057 morphine injection 2 mg 2 mg Every 4 hours PRN, intravenous, moderate pain (4-6), severe pain (7-10), Starting on Sat01/05/25 at 2057, If inadequate response (less than 50% reduction in pain score) within 60 minutes, proceed to next-line agent for same PRN reason or contact provider if no further options ordered. 2312 (Given - Provider: Golden Helm RN) 1722 (Given - Provider: Ha Hernandez RN) naloxone (NARCAN) injection 0.2 mg 0.2 mg Every 2 min PRN, intravenous, opioid reversal, respiratory depression, Starting on Sat01/05/25 at 2058, Give for respiratory rate less than 10 breaths/min or if patient is difficult to arouse. Max dose = 10 mg. Call provider. ondansetron (ZOFRAN) injection 4 mg(Linked Group 1) 4 mg Every 4 hours PRN, intravenous, nausea, vomiting, Starting on Sat01/05/25 at 2057, Give IV if patient is unable to take orally. 1st line If inadequate response within 60 minutes, proceed to next-line agent for same PRN reason or contact provider if no further options ordered. For IV push, give over 2 - 5 minutes. ondansetron (ZOFRAN-ODT) disintegrating tablet 4 mg(Linked Group 1) 4 mg Every 8 hours PRN, oral, nausea, vomiting, Starting on Sat01/05/25 at 2057, 1st line. If inadequate response within 60 minutes, proceed to next-line agent for same PRN reason or contact provider if no further options ordered. potassium chloride (KLOR-CON) ER tablet 40 mEq 40 mEq 4 times daily PRN, oral, for potassium less than or EQUAL to 3.4 mmol/L, Starting on Sat01/05/25 at 2056, Do not crush KCl tablets. If potassium is replaced per protocol order, recheck potassium 2 hour after replacement and the next morning. potassium chloride IVPB 10 mEq in 100 mL sterile water (premix) 10 mEq Every hour PRN, intravenous, Administer over 60 Minutes, for potassium less than or equal to 3.4 mmol/L, Starting on Sat01/05/25 at 2056, Total Dose 40 mEq, use only if unable to administer PO. Max Rate 10mEq/hr. If potassium is replaced per protocol order, recheck 1 hour after replacement and the next morning. traMADoL (ULTRAM) tablet 50 mg 50 mg Every 6 hours PRN, oral, moderate pain (4-6), Starting on Sat01/14/25 at 1203 1226 (Given - Provider: Ha Hernandez RN)2147 (Given - Provider: Golden Helm RN) 0511 (Given - Provider: Golden Helm RN) traZODone (DESYREL) tablet 50 mg 50 mg Every Night PRN, oral, insomnia, Starting on Sat01/14/25 at 2018, Hold if QTc interval more than 490 2147 (Given - Provider: Golden Helm, SHANELL) Linked Groups Order Group 1: ondansetron (ZOFRAN-ODT) disintegrating tablet 4 mgJump to med 4 mg Every 8 hours PRN, oral, nausea, vomiting, Starting on Sat01/05/25 at 2057, 1st line. If inadequate response within 60 minutes, proceed to next-line agent for same PRN reason or contact provider if no further options ordered. Or ondansetron (ZOFRAN) injection 4 mgJump to med 4 mg Every 4 hours PRN, intravenous, nausea, vomiting, Starting on Sat01/05/25 at 2058, Give IV if patient is unable to take orally. 1st line If inadequate response within 60 minutes, proceed to next-line agent for same PRN reason or contact provider if no further options ordered. For IV push, give over 2 - 5 minutes. documented in this encounter Care Teams Food Safety Officer Relationship Specialty Start Date End Date [facility], [facility] [place] [address] PCP - General 01/05/25 01/05/25 documented as of this encounter
--- OUTSIDE RECORDS SUMMARY | 2025-02-02 17:15 | XMS_ITS | Encounter Summary ---
Author Organization [employer] ([place], [place], [place], [place]) Address [address] [place] [address] Care Team Providers Care Artistic Director Name Role Phone [facility] Connection, Find-A-Doc Primary Care Provider Reason for Visit * Reason Comments Fall Alcohol Problem Encounter Details Date Type Department Care Team (Late st Contact Info) Description 02/02/2025 5:15 PM EDT - 02/03/2025 4:49 AM EDT Emergency [facility] Emergency Department [address] [place] [id number] Lele Mansfield MD [address], [place] [id number] Lobito Barakat DO [address] [place] [address] Fall, initial encounter (Primary Dx); Alcoholic intoxication without complication (HCC); Lactic acidosis Discharge Disposition: Home or Self Care Social History Tobacco Use Types Packs/Day Years Used Date Smoking Tobacco: Never Smokeless Tobacco: Never Alcohol Use Standard Drinks/Week Comments Yes 0 (1 standard drink = 0.6 oz pur e alcohol) 2-3 short glasses a day Utilities Answer Date Recorded In the past 12 months, has t he electric, gas, oil, or water company threatened to shut off services in your home? No 01/06/2025 Interpersonal Safety Answer Date Record ed How often does anyone, inclu ding family and friends, physically hurt you? Never 01/06/2025 How often does anyone, inclu ding family and friends, insult or talk down [...] Do you speak a language other than Malaysian at [facility]? No 01/06/2025 Do you want help with [...] Sign Reading Time Taken Comments Blood Pressure 113/74 02/03/2025 2:34 AM EDT Pulse 66 02/03/2025 2:34 AM EDT Temperature 36.8 C (98.2 F) 02/02/2025 5:26 PM EDT Respiratory Rate 13 02/03/2025 2:10 AM EDT Oxygen Saturation 95% 02/02/2025 7:50 PM EDT Inhaled Oxygen Concentration - - Weight 61.2 kg (135 lb) 02/02/2025 5:26 PM EDT Height 167.6 cm (5' 6 ) 02/02/2025 5:26 PM EDT Body Mass Index 21.79 02/02/2025 5:26 PM EDT documented in this encounter Discharge Instructions * Attachments The following attachments cannot be sent through Care Everywhere. * Alcohol Intoxication Uyfy-oi-Naxz (Malaysian) documented in this encounter Medications at Time of Discharge amLODIPine (NORVASC) 2.5 MG tablet Take 1 tablet (2.5 mg total) by mouth daily for 30 days. 30 tablet 01/16/2025 02/15/2025 ferrous sulfate 325 (65 FE) MG tablet Take 1 tablet (325 mg total) by mouth 3 (three) times a week MON/WED/FRI. folic acid (FOLVITE) 1 MG tablet Take 1 tablet (1 mg total) by mouth daily for 30 days. 30 tablet 01/16/2025 02/15/2025 metoprolol tartrate (LOPRESSOR) 50 MG tablet Take 1 tablet (50 mg total) by mouth 2 (two) times daily for 30 days. 60 tablet 01/15/2025 02/14/2025 pantoprazole (PROTONIX) 40 MG tablet Take 1 tablet (40 mg total) by mouth daily for 30 days. 30 tablet 01/16/2025 02/15/2025 simvastatin (ZOCOR) 20 MG tablet Take 1 tablet (20 mg total) by mouth nightly. thiamine 100 MG tablet Take 2 tablets (200 mg total) by mouth daily for 30 days. 60 tablet 01/16/2025 02/15/2025 documented as of this encounter ED Notes * Valerio Stephenson - 02/03/2025 4:48 AM EDT Discharge instructions were reviewed with pt, pt verbalized understanding and had no further questions. Pt left via [facility]. Valerio Stephenson 02/03/25 0449 * Lobito Barakat DO - 02/03/2025 12:03 AM EDT Subjective Chief Complaint: Fall and Alcohol Problem Patient is a 59-year-old male here for a fall while intoxicated. Patient was recently admitted on 01/05 for a right subdural hematoma. Patient had been at [facility] since admission but was recently discharged. When patient got home he became intoxicated again and fell and hit his head. Patient brought to ED by EMS. Patient is acutely intoxicated and unable to give full story. But says his headhurts. No obvious signs of injury to head. The story is unclear on whether or not this fall was witnessed or patient had been found down for unknown amount of time. Trauma Mechanism of injury: Fall Alcohol Problem Patient History Past Medical History: Diagnosis Date Alcohol abuse GERD (gastroesophageal reflux disease) Hypertension Past Surgical History: Procedure Laterality Date ESOPHAGECTOMY No family history on file. Social History Tobacco Use Smoking status: Never Smokeless tobacco: Never Substance Use Topics Alcohol use: Yes Comment: 2-3 short glasses a day I reviewed the HPI, ROS and PFSH documentation recorded by others in the medical record and supplemented my note as needed. Review of Systems Review of Systems Physical Exam ED Triage Vitals Encounter Vitals Group BP 02/02/25 1726 (!) 156/79 Girls Systolic BP Percentile -- Girls Diastolic BP Percentile -- Boys Systolic BP Percentile -- Boys Diastolic BP Percentile -- Pulse 02/02/25 1715 86 Resp 02/02/25 1715 18 Temp 02/02/25 1726 98.2 ??F (36.8 ??C) Temp src 02/02/25 1726 Oral SpO2 02/02/25 1715 96 % Weight 02/02/25 172 61.2 kg (135 lb) Height 02/02/25 172 1.676 m (5' 6 ) Head Circumference -- Peak Flow -- Pain Score 02/02/25 172 Zero Pain Loc -- Pain Education -- Exclude from Growth Chart -- Physical Exam Constitutional: Appearance: Normal appearance. Eyes: Extraocular Movements: Extraocular movements intact. Cardiovascular: Rate and Rhythm: Normal rate and regular rhythm. Pulses: Normal pulses. Heart sounds: Normal heart sounds. Pulmonary: Effort: Pulmonary effort is normal. Breath sounds: Normal breath sounds. Abdominal: General: Abdomen is flat. Palpations: Abdomen is soft. Skin: Comments: Old healing laceration to forehead, old scab to right of scalp. Neurological: Mental Status: He is alert. Cranial Nerves: No cranial nerve deficit. Sensory: No sensory deficit. Motor: No weakness. Comments: Disoriented to situation and time Psychiatric: Mood and Affect: Mood normal. Behavior: Behavior normal. Neurological Exam Mental Status Alert. Cranial Nerves CN III, IV, : Extraocular movements intact bilaterally. Disoriented to situation and time. Ortho Exam ED Course & MDM Medications sodium chloride 0.9% (NS) bolus (0 mLs intravenous Stopped 02/02/252051) sodium chloride 0.9% (NS) bolus (0 mLs intravenous Stopped 02/02/252150) sodium chloride 0.9% (NS) bolus (0 mLs intravenous Stopped 02/03/25 0037) Results for orders placed or performed during the hospital encounter of 02/02/25 CBC with Auto Diff Result Value Ref Range WBC 5.2 4.2 - 9.1 K/??L RBC 4.05 (L) 4.63 - 6.08 M/??L Hemoglobin 13.6 (L) 13.7 - 17.5 GM/DL Hematocrit 40.1 40.1 - 51.0 % MCV 99 (H) 79 - 92 fL MCH 33.6 (H) 25.7 - 32.2 pg MCHC 33.9 32.3 - 36.5 GM/DL RDW 13.6 11.6 - 14.4 % Platelets 279 140 - 375 K/CU MM MPV 9.4 9.4 - 12.4 fL % Neutros 55 34 - 68 % % Lymphs 34 22 - 53 % % Monos 6 5 - 12 % % Eos 4.0 1.0 - 7.0 % % Baso 1 0 - 1 % NRBC Absolute <0.01 0 - 0.012 K/ul # Neutros 2.86 1.78 - 5.38 K/??L # Lymphs 1.77 1.32 - 3.57 K/??L # Monos 0.29 (L) 0.30 - 0.82 K/??L # Eos 0.21 0.04 - 0.54 K/??L # Baso 0.06 0.01 - 0.08 K/??L % Imm Grans 0.20 0.01 - 0.43 % # IG <0.03 0.00 - 0.03 K/uL Comprehensive metabolic panel Result Value Ref Range Sodium 135 (L) 136 - 145 meq/L Potassium 4.3 3.4 - 5.1 meq/L Chloride 94 (L) 98 - 112 meq/L CO2 19 (L) 22 - 29 meq/L Calcium 8.6 8.4 - 10.2 mg/dL Glucose 76 74 - 100 mg/dL BUN 7.8 (L) 8.4 - 25.7 mg/dL Creatinine 0.74 0.60 - 1.30 mg/dL BUN/Creatinine 11 8 - 20 eGFR (mL/min/1.73m2) 104 >=60 mL/min/1.73m2 Albumin 3.5 3.5 - 5.0 g/dL Alkaline Phosphatase 65 40 - 150 U/L ALT 23 <55 U/L AST 33 5 - 34 U/L Total Bilirubin 0.3 0.3 - 1.2 mg/dL Protein, Total 7.6 6.4 - 8.3 g/dL Globulin 4.1 2.5 - 4.1 g/dL Anion Gap 26 (H) 4 - 12 A/G Ratio 0.9 0.7 - 1.9 Osmolality Calc 267.1 mOsm/kg Ethanol Result Value Ref Range Ethanol Lvl 388 (H) <=10 mg/dL Blue Top Extra Tubes Result Value Ref Range HOLD SPECIMEN (SJ - BKR) Hold for add-ons. PST Top Extra Tubes Result Value Ref Range HOLD SPECIMEN (SJ - BKR) Hold for add-ons. Brown Top Extra Tubes Result Value Ref Range HOLD SPECIMEN (SJ - BKR) Hold for add-ons. Lactic Acid with reflex (SJ) Result Value Ref Range Lactic Acid Level (mmol/L) 4.9 (HH) 0.5 - 2.2 mmol/L Lactic acid (SJ) Result Value Ref Range Lactic Acid Level (mmol/L) 4.8 (HH) 0.5 - 2.2 mmol/L Creatine Kinase (CK) Result Value Ref Range Total CK 117 30 - 200 U/L Lactic Acid with reflex (SJ) Result Value Ref Range Lactic Acid Level (mmol/L) 4.3 (HH) 0.5 - 2.2 mmol/L Lactic acid (SJ) Result Value Ref Range Lactic Acid Level (mmol/L) 3.2 (H) 0.5 - 2.2 mmol/L ECG 12 lead Result Value Ref Range VENTRICULAR RATE EKG/MIN 70 BPM ATRIAL RATE (MCT) 70 BPM MA Interval 146 ms QRS-INTERVAL (MSEC) 92 ms QT Interval 429 ms QTC Interval 463 ms P [place] 60 degrees R AXIS (MCT) 80 degrees T Wave [place] 73 degrees [place] Diagnosis Normal sinus rhythm Abnormal ECG When compared with ECG of 14-JAN-2025 20:35, Nonspecific T wave abnormality no longer evident in Inferior leads Confirmed by Ayse MENDOZA STEVE ([id number]) on 02/02/2025 9:40:[address] cervical spine without contrast Final Result No acute intracranial hemorrhage or large acute cortical infarct. Continued improvement in a now chronic appearing right subdural hematoma. No acute fracture or malalignment of the cervical spine. Images reviewed, interpreted, and dictated by Beata Mcdermott M.D. CT brain without IV contrast Final Result No acute intracranial hemorrhage or large acute cortical infarct. Continued improvement in a now chronic appearing right subdural hematoma. No acute fracture or malalignment of the cervical spine. Images reviewed, interpreted, and dictated by Beata Mcdermott M.D. ED Course as of 02/04/25 0304 Tue Feb 02, 2025 1728 EKG interpreted by me: Sinus rhythm, normal rate, no acute ST changes, some nonspecific T waves, this is an abnormal EKG [MP] 1923 Dr. Barakat reviewed CT imaging to look for obvious brain bleed. Nothing obvious on scan will wait for radiology read. [LC] Wed Feb 03, 2025 0138 Awake alert oriented times 4 at this time. Requesting to be discharged. [CG] ED Course User Index [CG] Lobito Barakat DO [LC] Ciarra Aguilar NP [MP] Lele Mansfield MD Procedures Medical Decision Making Patient is a 59-year-old male here for a fall while intoxicated. Patient was recently admitted on 01/05 for a right subdural hematoma. Patient had been at [facility] since admission but was recently discharged. When patient got home he became intoxicated again and fell and hit his head. Patient brought to ED by EMS. Patient is acutely intoxicated and unable to give full story. But says his head hurts. No obvious signs of injury to head. The story is unclear on whether or not this fall was witnessed or patient had been found down for unknown amount of time. Differentials include head bleed, concussion, C-spine fracture. CT head and CT neck negative for acute changes. CT head shows improving subdural hematoma. Patient's lactic was 4.9 initially at with an ethanol of 388. Repeat lactate continued to be elevated at 4.8. Second liter started, third lacticwas 4.3. Patient given a total of 3 L of fluid... Amount and/or Complexity of Data Reviewed Labs: ordered. Radiology: ordered. ECG/medicine tests: ordered. Lactic improving. Lactic acidosis is secondary to acute alcohol intoxication and not an infectious process. On reevaluation is resting comfortably. Hemodynamically stable. Does not warrant hospitalization for alcohol treatment. He is appropriate for discharge at this time. Follow-up outpatient needed. Patient able to this plan. Assessment & Plan Clinical Impression Diagnosis Comment Added By Time Added Fall, initial encounter Lobito Barakat DO 02/03/2025 1:38 AM Alcoholic intoxication without complication (HCC) Lobito aBrakat DO 02/03/2025 1:38 AM Lactic acidosis Lobito Barakat DO 02/03/2025 1:39 AM Disposition Discharge [1] - 02/03/2025 1:38 AM Discharge Medication List as of 02/03/2025 1:55 AM Electronically Signed By Lobito Barakat DO 02/04/25 0304 * Soha Armenta - 02/02/2025 5:13 PM EDT Pt arrived to ED via EMS for fall. ETOH on board. Denies pain. Pt reports fall but cannot give moreinfo about the incident. Discharged from yesterday. documented in this encounter Plan of Treatment Not on file documented as of this encounter Procedures Procedure Name Priority Date/Time Associated Diagnosis Comments LACTIC ACID (SJ - BKR) STAT 1:08 AM EDT LACTIC ACID WITH REFLEX STAT 02/02/2025 10:32 PM EDT LACTIC ACID (SJ - BKR) STAT 7:24 PM EDT CREATINE KINASE (CK) Add-On 02/02/2025 7:24 PM EDT ETHANOL STAT 02/02/2025 7:24 PM EDT COMPREHENSIVE METABOLIC PANEL STAT 02/02/2025 7:[address] CERVICAL SPINE WITHOUT IV CONTRAST STAT 02/02/2025 6:[address] BRAIN WITHOUT IV CONTRAST STAT 02/02/2025 6:02 PM EDT LACTIC ACID WITH REFLEX STAT 02/02/2025 5:44 PM EDT [place] PST (EXTRA TUBES) STAT 02/02/2025 5:33 PM EDT [place] BROWN TOP STAT 02/02/2025 5:33 PM EDT [place] BLUE TOP (EXTRA TUBES) STAT 02/02/2025 5:33 PM EDT [place] EXTRA TUBES STAT 02/02/2025 5:33 PM EDT CBC W/ AUTO DIFF STAT 02/02/2025 5:33 PM EDT FS_MODEL_IP_ECG 12-LEAD Routine 02/02/2025 5:23 PM EDT documented in this encounter Results * (ABNORMAL) Lactic acid (SJ) (02/03/2025 1:08 AM EDT) Lactic Acid Level (mmol/L) 3.2(H) 0.5 - 2.2 mmol/L 02/03/2025 1:29 AM EDT [facility] Blood Venipuncture / Unknown 02/03/2025 1:08 AM EDT 02/03/2025 1:11 AM EDT Narrative [facility] - 02/03/2025 1:29 AM EDT Specimen moderately hemolyzed us Ciarra Aguilar [facility] LAB BLOOD ORDERABLES Final Re sult [facility] [address] [phone] * (ABNORMAL) Lactic Acid with reflex (SJ) (02/02/2025 10:32 PM EDT) Lactic Acid Level (mmol/L) 4.3(HH) 0.5 - 2.2 mmol/L 02/02/2025 11:06 PM EDT [facility] Blood Venipuncture / Unknown 02/02/2025 10:32 PM EDT 02/02/2025 10:37 PM EDT us Ciarra Aguilar [facility] LAB BLOOD ORDERABLES Final Re sult Performing Organization Address [facility]/ZIP Co de Phone Number [facility] [address] [phone] * Creatine Kinase (CK) (02/02/2025 7:24 PM EDT) Total CK 117 30 - 200 U/L 02/02/2025 9:17 PM EDT [facility] Blood Venipuncture / Unknown 02/02/2025 7:24 PM EDT 02/02/2025 7:28 PM EDT Ciarra Aguilar [facility] LAB BLOOD ORDERABLES Final Re sult Performing Organization Address [facility] Co de Phone Number [facility] [address] [phone] * (ABNORMAL) Lactic acid (SJ) (02/02/2025 7:24 PM EDT) Lactic Acid Level (mmol/L) 4.8(HH) 0.5 - 2.2 mmol/L 02/02/2025 8:21 PM EDT [facility] Blood Venipuncture / Unknown 02/02/2025 7:24 PM EDT 02/02/2025 7:28 PM EDT Ciarra Aguilar [facility] LAB BLOOD ORDERABLES Final Re sult Performing Organization Address City/[facility]/ZIP Co de Phone Number [facility] [address] [phone] * (ABNORMAL) Ethanol (02/02/2025 7:24 PM EDT) Ethanol Lvl 388(H) <=10 mg/dL 02/02/2025 8:14 PM EDT [facility] Blood Venipuncture / Unknown 02/02/2025 7:24 PM EDT 02/02/2025 7:28 PM EDT Narrative [facility] - 02/02/2025 8:14 PM EDT Lower limit of detection is 10.00 mg/dL. 50-100 mg/dL
Impaired Reflexes: 100-300 mg/dL
Depression of [employer]PER[employer]: 300 mg/dL or >
Coma may occur; 400 mg/dL or >
may occur

This test is not intended for legal purposes or use in employment related testing. us Lele Mansfield MD LAB BLOOD ORDERABLES Final Resu lt [facility] [address] [place] [address], [facility] [[email or web address]] [phone] * (ABNORMAL) Comprehensive metabolic panel (02/02/2025 7:24 PM EDT) Sodium 135(L) 136 - 145 meq/L 02/02/2025 8:14 PM EDT [facility] Potassium 4.3 3.4 - 5.1 meq/L 02/02/2025 8:14 PM EDT [facility] Chloride 94(L) 98 - 112 meq/L 02/02/2025 8:14 PM EDT [facility] CO2 19(L) 22 - 29 meq/L 02/02/2025 8:14 PM EDT [facility] Calcium 8.6 8.4 - 10.2 mg/dL 02/02/2025 8:14 PM EDT [facility] Glucose 76 74 - 100 mg/dL 02/02/2025 8:14 PM EDT [facility] BUN 7.8(L) 8.4 - 25.7 mg/dL 02/02/2025 8:14 PM EDT [facility] Creatinine 0.74 0.60 - 1.30 mg/dL 02/02/2025 8:14 PM EDT [facility] BUN/Creatinine 11 8 - 20 02/02/2025 8:14 PM EDT [facility] eGFR (mL/min/1.73m2) 104 >=60 mL/min/1.7 3m2 02/02/2025 8:14 PM EDT [facility] Comment:ESTIMATED GFR IS NOT ACCURATE CREATININE CLEARANCE IN PREDICTING GLOMERULAR FILTRATION RATE. ESTIMATED GFR IS NOT APPLICABLE FOR DIALYSIS PATIENTS. Albumin 3.5 3.5 - 5.0 g/dL 02/02/2025 8:14 PM EDT [facility] Alkaline Phosphatase 65 40 - 150 U/L 02/02/2025 8:14 PM EDT [facility] ALT 23 <55 U/L 02/02/2025 8:14 PM EDT [facility] AST 33 5 - 34 U/L 02/02/2025 8:14 PM EDT [facility] Total Bilirubin 0.3 0.3 - 1.2 mg/dL 02/02/2025 8:14 PM EDT [facility] Protein, Total 7.6 6.4 - 8.3 g/dL 02/02/2025 8:14 PM EDT [facility] Globulin 4.1 2.5 - 4.1 g/dL 02/02/2025 8:14 PM EDT [facility] Anion Gap 26(H) 4 - 12 02/02/2025 8:14 PM EDT [facility] A/G Ratio 0.9 0.7 - 1.9 02/02/2025 8:14 PM EDT [facility] Osmolality Calc 267.1 mOsm/kg 8:14 PM EDT [facility] Blood Venipuncture / Unknown 02/02/2025 7:24 PM EDT 02/02/2025 7:28 PM EDT us Lele Mansfield MD LAB BLOOD ORDERABLES Final Resu lt [facility] [address] [phone] * CT cervical spine without contrast (02/02/2025 6:03 PM EDT) Anatomical Region Laterality Modality C-spine, Neck Computed Tomogra phy (CT) 02/02/2025 7:20 PM EDT Impressions 02/02/2025 7:52 PM EDT No acute intracranial hemorrhage or large acute cortical infarct. Continued improvement in a now chronic appearing right subdural hematoma. No acute fracture or malalignment of the cervical spine. Images reviewed, interpreted, and dictated by Beata Mcdermott M.D. Narrative 02/02/2025 7:[address], CT CERVICAL SPINE 02/02/2025 5:50 PM HISTORY: Neck trauma, midline tenderness (Age 16-64y) TECHNIQUE: Multiple axial CT images were performed from the foramen magnum to the vertex. Coronal reformatted images were reconstructed from axial data set. Axial CT images were obtained of the cervical spine. Coronal and sagittal reformatted images were generated from the axial dataset. This study was performed with techniques to keep radiation doses as low as reasonably achievable, (ALARA). Individualized dose reduction techniques using automated exposure control or adjustment of mA and/or kV according to the patient size were employed. COMPARISON: CT head from January 12, 2025. FINDINGS: CT Head: Decreased size of the known right subdural hematoma, which is now hypoattenuating and measures 4.5 mm in thickness. No acute intracranial hemorrhage or large acute cortical infarct. Chronic small vessel ischemic white matter changes and generalized cerebral volume loss are present. Ventricles are normal in size and configuration. No midline shift. The basal cisterns are patent. No skull fracture. The visualized paranasal sinuses and mastoid air cells are clear. CT Cervical spine: There is no acute fracture or malalignment of the cervical spine. The facets are normally aligned. The cervical lordosis is maintained. Multilevel degenerative changes are present. No acute paraspinal abnormality. Limited images of the lung apices are unremarkable. Procedure Note Chet Mcdermott MD - 02/02/[address], CT CERVICAL SPINE 02/02/2025 5:50 PM HISTORY: Neck trauma, midline tenderness (Age 16-64y) TECHNIQUE: Multiple axial CT images were performed from the foramen magnum to the vertex. Coronal reformatted images were reconstructed from axial data set. Axial CT images were obtained of the cervical spine. Coronal and sagittal reformatted images were generated from the axial dataset. This study was performed with techniques to keep radiation doses as low as reasonably achievable, (ALARA). Individualized dose reduction techniques using automated exposure control or adjustment of mA and/or kV according to the patient size were employed. COMPARISON: CT head from January 12, 2025. FINDINGS: CT Head: Decreased size of the known right subdural hematoma, which is now hypoattenuating and measures 4.5 mm in thickness. No acute intracranial hemorrhage or large acute cortical infarct. Chronic small vessel ischemic white matter changes and generalized cerebral volume loss are present. Ventricles are normal in size and configuration. No midline shift. The basal cisterns are patent. No skull fracture. The visualized paranasal sinuses and mastoid air cells are clear. CT Cervical spine: There is no acute fracture or malalignment of the cervical spine. The facets are normally aligned. The cervical lordosis is maintained. Multilevel degenerative changes are present. No acute paraspinal abnormality. Limited images of the lung apices are unremarkable. IMPRESSION: No acute intracranial hemorrhage or large acute cortical infarct. Continued improvement in a now chronic appearing right subdural hematoma. No acute fracture or malalignment of the cervical spine. Images reviewed, interpreted, and dictated by Beata Mcdermott M.D. iCarra Aguilar NP IMG CT ORDERABLES Final Resul t * CT brain without IV contrast (02/02/2025 6:02 PM EDT) Anatomical Region Laterality Modality Brain, Head Computed Tomogra phy (CT) 02/02/2025 7:20 PM EDT Impressions 02/02/2025 7:52 PM EDT No acute intracranial hemorrhage or large acute cortical infarct. Continued improvement in a now chronic appearing right subdural hematoma. No acute fracture or malalignment of the cervical spine. Images reviewed, interpreted, and dictated by Beata Mcdermott M.D. Narrative 02/02/2025 7:[address], CT CERVICAL SPINE 02/02/2025 5:50 PM HISTORY: Neck trauma, midline tenderness (Age 16-64y) TECHNIQUE: Multiple axial CT images were performed from the foramen magnum to the vertex. Coronal reformatted images were reconstructed from axial data set. Axial CT images were obtained of the cervical spine. Coronal and sagittal reformatted images were generated from the axial dataset. This study was performed with techniques to keep radiation doses as low as reasonably achievable, (ALARA). Individualized dose reduction techniques using automated exposure control or adjustment of mA and/or kV according to the patient size were employed. COMPARISON: CT head from January 12, 2025. FINDINGS: CT Head: Decreased size of the known right subdural hematoma, which is now hypoattenuating and measures 4.5 mm in thickness. No acute intracranial hemorrhage or large acute cortical infarct. Chronic small vessel ischemic white matter changes and generalized cerebral volume loss are present. Ventricles are normal in size and configuration. No midline shift. The basal cisterns are patent. No skull fracture. The visualized paranasal sinuses and mastoid air cells are clear. CT Cervical spine: There is no acute fracture or malalignment of the cervical spine. The facets are normally aligned. The cervical lordosis is maintained. Multilevel degenerative changes are present. No acute paraspinal abnormality. Limited images of the lung apices are unremarkable. Procedure Note Chet Mcdermott MD - 02/02/[address], CT CERVICAL SPINE 02/02/2025 5:50 PM HISTORY: Neck trauma, midline tenderness (Age 16-64y) TECHNIQUE: Multiple axial CT images were performed from the foramen magnum to the vertex. Coronal reformatted images were reconstructed from axial data set. Axial CT images were obtained of the cervical spine. Coronal and sagittal reformatted images were generated from the axial dataset. This study was performed with techniques to keep radiation doses as low as reasonably achievable, (ALARA). Individualized dose reduction techniques using automated exposure control or adjustment of mA and/or kV according to the patient size were employed. COMPARISON: CT head from January 12, 2025. FINDINGS: CT Head: Decreased size of the known right subdural hematoma, which is now hypoattenuating and measures 4.5 mm in thickness. No acute intracranial hemorrhage or large acute cortical infarct. Chronic small vessel ischemic white matter changes and generalized cerebral volume loss are present. Ventricles are normal in size and configuration. No midline shift. The basal cisterns are patent. No skull fracture. The visualized paranasal sinuses and mastoid air cells are clear. CT Cervical spine: There is no acute fracture or malalignment of the cervical spine. The facets are normally aligned. The cervical lordosis is maintained. Multilevel degenerative changes are present. No acute paraspinal abnormality. Limited images of the lung apices are unremarkable. IMPRESSION: No acute intracranial hemorrhage or large acute cortical infarct. Continued improvement in a now chronic appearing right subdural hematoma. No acute fracture or malalignment of the cervical spine. Images reviewed, interpreted, and dictated by Beata Mcdermott M.D. Ciarra Aguilar [facility] IMG CT ORDERABLES Final Resul t * (ABNORMAL) Lactic Acid with reflex (SJ) (02/02/2025 5:44 PM EDT) Lactic Acid Level (mmol/L) 4.9(HH) 0.5 - 2.2 mmol/L 02/02/2025 6:42 PM EDT [facility] Blood Venipuncture / Unknown 02/02/2025 5:44 PM EDT 02/02/2025 5:44 PM EDT Ciarra Aguilar NP LAB BLOOD ORDERABLES Final Re sult Performing Organization Address [facility]/ZIP Co de Phone Number [facility] [address] [phone] * Brown Top Extra Tubes (02/02/2025 5:33 PM EDT) HOLD SPECIMEN (SJ - BKR) Hold for add-ons. 02/02/2025 7:00 PM EDT [facility] Comment:Auto resulted. Blood (Blood, Veinous) Venipuncture / Unknown 02/02/2025 5:33 PM EDT 02/02/2025 5:44 PM EDT Lele Mansfield MD LAB BLOOD ORDERABLES Final Resu lt Performing Organization Address City/[facility]/ZIP Co de Phone Number [facility] [address] [phone] * PST Top Extra Tubes (02/02/2025 5:33 PM EDT) HOLD SPECIMEN (SJ - BKR) Hold for add-ons. 02/02/2025 7:00 PM EDT [facility] Comment:Auto resulted. Blood (Blood, Veinous) Venipuncture / Unknown 02/02/2025 5:33 PM EDT 02/02/2025 5:43 PM EDT us Lele Mansfield MD LAB BLOOD ORDERABLES Final Resu lt Performing Organization Address [facility]/ZIP Co de Phone Number [facility] [address] [phone] * Blue Top Extra Tubes (02/02/2025 5:33 PM EDT) HOLD SPECIMEN (SJ - BKR) Hold for add-ons. 02/02/2025 7:00 PM EDT [facility] Comment:Auto resulted. Blood (Blood, Veinous) Venipuncture / Unknown 02/02/2025 5:33 PM EDT 02/02/2025 5:44 PM EDT us Lele Mansfield MD LAB BLOOD ORDERABLES Final Resu lt Performing Organization Address [facility] Co de Phone Number [facility] [address] [phone] * (ABNORMAL) CBC with Auto Diff (02/02/2025 5:33 PM EDT) WBC 5.2 4.2 - 9.1 K/ L 02/02/2025 6:11 PM EDT [facility] RBC 4.05(L) 4.63 - 6.08 M/ L 02/02/2025 6:11 PM EDT [facility] Hemoglobin 13.6(L) 13.7 - 17.5 GM/DL 02/02/2025 6:11 PM EDT [facility] Hematocrit 40.1 40.1 - 51.0 % 02/02/2025 6:11 PM EDT [facility] MCV 99(H) 79 - 92 fL 02/02/2025 6:11 PM EDT [facility] MCH 33.6(H) 25.7 - 32.2 pg 02/02/2025 6:11 PM EDT [facility] MCHC 33.9 32.3 - 36.5 GM/DL 02/02/2025 6:11 PM EDT [facility] RDW 13.6 11.6 - 14.4 % 02/02/2025 6:11 PM EDT [facility] Platelets 279 140 - 375 K/CU MM 02/02/2025 6:11 PM EDT [facility] MPV 9.4 9.4 - 12.4 fL 02/02/2025 6:11 PM EDT [facility] % Neutros 55 34 - 68 % 02/02/2025 6:11 PM EDT [facility] % Lymphs 34 22 - 53 % 02/02/2025 6:11 PM EDT [facility] % Monos 6 5 - 12 % 02/02/2025 6:11 PM EDT [facility] % Eos 4.0 1.0 - 7.0 % 02/02/2025 6:11 PM EDT [facility] % Baso 1 0 - 1 % 02/02/2025 6:11 PM EDT [facility] NRBC Absolute <0.01 0 - 0.012 K/ul 02/02/2025 6:11 PM EDT [facility] # Neutros 2.86 1.78 - 5.38 K/ L 02/02/2025 6:11 PM EDT [facility] # Lymphs 1.77 1.32 - 3.57 K/ L 02/02/2025 6:11 PM EDT [facility] # Monos 0.29(L) 0.30 - 0.82 K/ L 02/02/2025 6:11 PM EDT [facility] # Eos 0.21 0.04 - 0.54 K/ L 02/02/2025 6:11 PM EDT [facility] # Baso 0.06 0.01 - 0.08 K/ L 02/02/2025 6:11 PM EDT [facility] % Imm Grans 0.20 0.01 - 0.43 % 02/02/2025 6:11 PM EDT [facility] # IG <0.03 0.00 - 0.03 K/uL 02/02/2025 6:11 PM EDT [facility] Blood Venipuncture / Unknown 02/02/2025 5:33 PM EDT 02/02/2025 5:44 PM EDT Narrative [facility] - 02/02/2025 6:11 PM EDT When CBC w/ Auto Diff is ordered the lab will add a Manual Differential as a quality check at no additional charge if: Lymphocytes greater than seventy five percent with normal or increased WBC Monocytes greater than Fifteen percent Basophil greater than four percent Bands >10% or several immature myeloids are seen on scan Blast? Flag noted Atypical Lymph flag noted Lele Mansfield MD LAB BLOOD ORDERABLES Final Resu lt [facility] [address] [place] [address] * ECG 12 lead (02/02/2025 5:23 PM EDT) VENTRICULAR RATE EKG/MIN 70 BPM GE MUSE ATRIAL RATE (MCT) 70 BPM GE MUSE MA Interval 146 ms GE MUSE QRS-INTERVAL (MSEC) 92 ms GE MUSE QT Interval 429 ms GE MUSE QTC Interval 463 ms GE MUSE P [place] 60 degrees GE MUSE R AXIS (MCT) 80 degrees GE MUSE T Wave [place] 73 degrees GE MUSE [place] Diagnosis Normal sinus rhythm Abnormal ECG When compared with ECG of 14-JAN-2025 20:35, Nonspecific T wave abnormality no longer evident in Inferior leads Confirmed by Ayse MENDOZA, NEAL ([id number]) on 02/02/2025 9:40:08 PM GE MUSE 02/02/2025 5:23 PM EDT 02/02/2025 9:40 PM EDT Lele Mansfield MD ECG ORDERABLES Final Result ieCrowd documented in this encounter Visit Diagnoses Diagnosis Fall, initial encounter- Primary Alcoholic intoxication without complication (HCC) Lactic acidosis Acidosis documented in this encounter Administered Medications Inactive Administered Medications - up to 3 most recent administrations Medication Order MAR Action Action Date Dose Rate Site sodium chloride 0.9% (NS) bolus 1,000 mL Once, intravenous, Administer over 60 Minutes, On Sat02/02/25 at 1740, For 1 dose New Bag 02/02/2025 6:22 PM EDT 1,000 mLs 1000 mL/hr sodium chloride 0.9% (NS) bolus 1,000 mL Once, intravenous, Administer over 60 Minutes, On Sat02/02/25 at 2030, For 1 dose New Bag 02/02/2025 8:51 PM EDT 1,000 mLs 1000 mL/hr sodium chloride 0.9% (NS) bolus 1,000 mL Once, intravenous, Administer over 60 Minutes, On Sat02/02/25 at 2315, For 1 dose New Bag 02/02/2025 11:37 PM EDT 1,000 mLs 1000 mL/hr documented in this encounter Active and Recently Administered Medications Times are shown in EDT. Scheduled Medication Order 02/01/2025 02/02/2025 02/03/2025 sodium chloride 0.9% (NS) bolus (COMPLETED) 1,000 mL Once, intravenous, Administer over 60 Minutes, On Sat02/02/25 at 1740, For 1 dose 182 (New Bag - Provider: Sharmila Ramirez RN)2051 (Stopped - Provider: Valerio Stephenson) sodium chloride 0.9% (NS) bolus (COMPLETED) 1,000 mL Once, intravenous, Administer over 60 Minutes, On Sat02/02/25 at 2030, For 1 dose 2050 (New Bag - Provider: Valerio Stephenson)215 (Stopped - Provider: Leslie Rowe, RN) sodium chloride 0.9% (NS) bolus (COMPLETED) 1,000 mL Once, intravenous, Administer over 60 Minutes, On Sat02/02/25 at 2315, For 1 dose 2337 (New Bag - Provider: Valerio Stephenson) 0037 (Stopped - Provider: Leslie Rowe, RN) documented in this encounter Care Teams Artistic Director Relationship Specialty Start Date End Date [facility] Connection, [facility] [place] [address] PCP - General 02/02/25 documented as of this encounter
[2025-02-04] VITALS (8 sets, daily range): BP systolic 139–170; BP diastolic 78–114; PULSE 62–74; RESP 13–19; TEMP 37.2; O2SAT 98–100; BMI 21.7; BMI 20.7
--- NOTE | 2025-02-04 14:00 | ED_ITS ---
<Statement entered by Crissy Melo MD - 02/06/25 14:42> I was consulted by the VAL, and we discussed the complexity of the problems being addressed. I approved the treatment and management plan for this patient's care in the emergency department, thus performing a substantive portion of the medical decision making. Crissy Melo MD, JUAN DIEGO, FACEP Discharge Plan Disposition Patient Disposition: Admitted Condition: Fair Prescriptions Prescriptions: No Action atorvastatin 80 mg tablet 80 mg PO HS Patient Comments: TAKE 1 TABLET BY MOUTH EVERY NIGHT FOR 90 DAYS. levetiracetam 500 mg tablet 500 mg PO DAILY Patient Comments: TAKE 1 TABLET BY MOUTH TWICE A DAY FOR 30 DAYS FOR SEIZURES thiamine HCl (vitamin B1) 100 mg tablet 100 mg PO DAILY Patient Comments: TAKE 1 TABLET BY MOUTH EVERY DAY carvedilol 12.5 mg tablet 12.5 mg PO BID Patient Comments: Take 1 tablet by mouth 2 (Two) Times a Day With Meals. Indications PRIMARY HYPERTENSION (INACTIVE) cyanocobalamin (vitamin B-12) 1,000 mcg tablet 1,000 mcg PO DAILY Patient Comments: Take 1 tablet by mouth Daily. pantoprazole 40 mg tablet,delayed release (DR/EC) 40 mg PO DAILY Patient Comments: Take 1 tablet by mouth Every Morning. folic acid 1 mg tablet 1 mg PO DAILY Patient Comments: Take 1 tablet by mouth Daily. ascorbic acid (vitamin C) 500 mg tablet 500 mg PO DAILY Patient Comments: Take 1 tablet every day by oral route for 30 days. ferrous sulfate [FeroSul] 325 mg (65 mg iron) tablet 325 mg PO TID Patient Comments: Take 1 tablet 3 times a week by oral route for 30 days. venlafaxine 150 mg capsule,extended release 24hr 150 mg PO DAILY Patient Comments: Take 1 capsule every day by oral route for 30 days. trazodone 150 mg tablet 150 mg PO HS Patient Comments: take 1 tablet (150 mg) by oral route at bedtime simvastatin 20 mg tablet 20 mg PO DAILY Patient Comments: TAKE 1 TABLET BY MOUTH EVERYDAY AT BEDTIME Referrals Follow up/Referrals: Provider,Referral, [Primary Care Provider, Medical] - See instructions Clinical Impressions Clinical Impression: Hypomagnesemia, Alcohol withdrawal, Generalized weakness Print Language Print Language: Sudanese Discharge ED Provider: Crissy Melo General Adult [facility] General Chief complaint: Weakness Stated complaint: weakness Time Seen by Provider: 02/04/25 14:06 History of Present Illness HPI narrative: 69-year-old male presents emergency department via EMS with complaints of weakness, headache, inability to walk since Saturday. He states that he was seen at [facility] Saturday afternoon for a fall. He reports that his workup was negative and they discharged him early Saturday morning. He reports since that time he has had to stay with his mother as he has not been able to walk. States that he has weakness with pain in bilateral knees. He also complains of headache. He states he has not take any medication for pain control for the past several days. He does report history of alcohol abuse. He states he normally drinks 4-5 vodka drinks daily but reports his last drink was on Saturday. Related Data Home Medications ?Medication ?Instructions ?Recorded ?Confirmed ascorbic acid (vitamin C) 500 mg 500 mg PO DAILY 08/1110/15/24 tablet atorvastatin 80 mg tablet 80 mg PO HS 08/11/24 5 carvedilol 12.5 mg tablet 12.5 mg PO BID 08/11/2409/21 cyanocobalamin (vitamin B-12) 1,000 mcg PO DAILY 08/1110/15/24 1,000 mcg tablet ferrous sulfate 325 mg (65 mg 325 mg PO TID 08/11/24 0 10/15/24 iron) tablet (FeroSul) folic acid 1 mg tablet 1 mg PO DAILY 08/11/2410/15 levetiracetam 500 mg tablet 500 mg PO DAILY 08/11/24 0 10/15/24 pantoprazole 40 mg tablet,delayed 40 mg PO DAILY 08/1110/15/24 release thiamine HCl (vitamin B1) 100 mg 100 mg PO DAILY 08/1110/15/24 tablet trazodone 150 mg tablet 150 mg PO HS 08/11/24 venlafaxine 150 mg 150 mg PO DAILY 08/11/24 capsule,extended release 24 hr simvastatin 20 mg tablet 20 mg PO DAILY 10/15/2409/21 Allergies Allergy/AdvReac Type Severity Reaction Status Date / Time No Known Allergies Allergy Verified 10/15/24 09:33 [facility] Disclaimer: The information contained in this section may have been updated after the patient was seen, as this information can be updated by other users. Medical History Iron deficiency GERD (gastroesophageal reflux disease) Hyperlipemia Hypertension Surgical History History of throat surgery Family History Other No significant family history Social History (Updated 10/21/24 @ 13:45 by Reddy Tijerina CRNA) Smoking Status: Smoker, status unknown alcohol intake: current substance use type: denies use current occupational status: other Travel in the last 8 weeks?: None caffeine: Yes Have you lived/traveled outside US in past 30 days?: No Contact w/someone who lives/traveled outside US past 30 days?: No Exposure to someone with infectious disease in past 14 days?: No Do you have a fever (greater than 100.4 F or 38 C)?: No Have you tested positive for COVID-19?: No Exposed to someone with COVID-19 in past 14 days?: No Do you have a sore throat?: No Do you have a cough?: No Do you have any weakness?: Yes Do you have any diarrhea?: No Are you experiencing any unusual bleeding?: No Do you have any muscle aches/pain?: No Do you have any abdominal pain?: No Are you experiencing loss of taste or smell?: No ROS Obtained: Yes other Constitutional Constitutional: Reports headache(s) and Reports weakness ENT Ears, Nose, Mouth, and Throat: Reports headache(s) Musculoskeletal Musculoskeletal: Reports arthralgias Neurologic Neurologic: Reports headache(s) and Reports weakness Physical Exam Narrative Physical exam: General: Awake, aware, in no acute distress HEENT: Patient has a scabbed laceration to the frontal portion of his scalp. Edges are well-approximated. There is no drainage or bleeding noted from the wound. No surrounding erythema. Patient also has a scabbed laceration to the right temporal region. Again the area is without bleeding, drainage, erythema, ecchymosis. Edges are well-approximated. Pupils are pinpoint bilaterally. Intact extraocular movements. CV: RRR, no murmurs, rubs, or gallops Pulm: CTA bilaterally with no rhonchi, rales, wheezes ABD: Nontender, no swelling, guarding, or rebound tenderness Psych, appropriate mood and affect Musculoskeletal: Patient has tremor that is most noticeable on his right lower extremity at rest. Sensations intact with 2+ pulses in all extremities. Patient with 5 out of 5 strength as well. General General appearance: alert Respiratory Respiratory exam: Present normal lung sounds bilaterally Cardiovascular Cardiovascular exam: Present regular rate Neurological Exam Neurological exam: Present alert Medical Decision Making Medical Records Screening: Per USPSTF and CDC recommendations, given the prevalence of disease in our region, it is our hospital?s policy to screen for HIV and viral Hepatitis for all patients aged 18 and over and those with ongoing risk factors. [place] Inquiry Pt receiving controlled substance: No Vital Signs: 02/04/25 14:03 02/04/25 14:30 02/04/25 15:00 Temperature 99.0 F Temperature Source Oral Pulse Rate 64 74 Pulse Rate [Right Radial] 64 Respiratory Rate 18 13 19 Blood Pressure 165/114 H 158/106 H Blood Pressure [Right Arm] 170/99 H Blood Pressure Mean [Right Arm] 122 Blood Pressure Source [Right Arm] Automatic Cuff Blood Pressure Position [Right Arm] Sitting 02 Sat by Pulse Oximetry 99 98 98 Oxygen Delivery Method Room Air Room Air Lab Data Lab Results 02/04/25 14:11: WBC 8.5, RBC 4.17 L, Hgb 14.0 L, Hct 41.2 L, MCV 98.8 H, MCH 33.6 H, MCHC 34.0, RDW 13.7, Plt Count 233, MPV 9.2, Neut % (Auto) 83.1 H, Lymph % (Auto) 9.8 L, [place] % (Auto) 6.5, Eos % (Auto) 0.2, Baso % (Auto) 0.2, Neut # (Auto) 7.0, Lymph # (Auto) 0.8, [place] # (Auto) 0.6, Eos # (Auto) 0.0, Baso # (Auto) 0.0, Sodium 133 L, Potassium 4.0, Chloride 90 L, Carbon Dioxide 24, Anion Gap 23.0 H, BUN 6 L, Creatinine 0.90, Estimated Creat Clear 77, Estimated GFR 86, Est GFR ( Amer) 105, Glucose 99, Calcium 9.4, Magnesium 1.2 L, Total Bilirubin 0.8, AST 35, ALT 29, Alkaline Phosphatase 91, Total Creatine Kinase 65, Troponin I < 0.01, Total Protein 8.6 H, Albumin 4.7, Globulin 3.9 H, Albumin/Globulin Ratio 1.2, Plasma/Serum Alcohol < 10 02/04/25 14:11 02/04/25 14:11 Orders (Tests/Meds): ED MEDICATIONS Generic Name Dose Route Start Last Admin Trade Name Freq PRN Reason Stop Dose Admin Multivitamins 10 ml/ Thiamine 1,015 mls @ 150 mls/hr 02/04/25 14:16 02/04/25 14:34 HCl 100 mg/ Magnesium Sulfate IV 02/04/25 21:01 150 mls/hr 2 gm/ Lactated Ringer's .[id number] LILIBETH Administration Nicotine 21 mg 02/04/25 16:11 Nicotine 21mg/24hr Patch TD 03/06/25 16:10 DAILYP PRN Nicotine Cravings Discontinued Medications Generic Name Dose Route Start Last Admin Trade Name Freq PRN Reason Stop Dose Admin Ketorolac Tromethamine 15 mg 02/04/25 14:16 02/04/25 14:35 Ketorolac 15mg/Ml Vial IV 02/04/25 14:17 15 mg ONCE ONE Administration ORDERS Category Date Time Status CT head/brain wo con Stat Cat Scan 02/04/25 14:14 Completed Consult Launch Operator [CONS] Routine Cons 02/04/25 14:42 Active XR chest portable Stat Exams 02/04/25 14:15 Completed XR knee LT 3V Stat Exams 02/04/25 14:25 Completed XR knee RT 3V Stat Exams 02/04/25 14:25 Completed Blood alcohol [Ethyl Alcohol] Stat Lab 02/04/25 14:11 Completed CBC w/Auto Diff [Complete Blood Count Auto Diff] Stat Lab 02/04/25 14:11 Completed CMP [Comprehensive Metabolic Panel] Stat Lab 02/04/25 14:11 Completed Complete Blood Count Auto Diff AMLAB Lab 02/05/25 06:00 Ordered Comprehensive Metabolic Panel AMLAB Lab 02/05/25 06:00 Ordered Creatine Kinase Stat Lab 02/04/25 14:11 Completed Drug Screen,Urine Stat Lab 02/04/25 14:15 Ordered Magnesium AMLAB Lab 02/05/25 06:00 Ordered Magnesium Stat Lab 02/04/25 14:11 Completed Phosphorous AMLAB Lab 02/05/25 06:00 Ordered Troponin I Q3H Lab 02/04/25 14:11 Completed Troponin I Q3H Lab 02/04/25 17:15 Ordered Urinalysis and Microscopic Stat Lab 02/04/25 14:15 Ordered Medical Decision Narrative: Initial impression of presenting illness: 59-year-old male with a history of alcoholism presents the emergency department with complaints of headache and generalized weakness since falling on Saturday. He reports that he was seen at [facility] on Saturday for this complaint and was discharged Saturday morning with what he reports was an unremarkable workup. He reports he normally drinks 4-5 vodka drinks daily but states his last drink was on Saturday. He states that since he was discharged from [facility] he has not been able to walk. He states that this is partially due to pain in bilateral knees as well as generalized weakness. He denies nausea, vomiting, diarrhea, fever, chest pain, shortness of breath. He reports he has not take any medication for pain for the past several days. Differential diagnosis includes but is not limited to: Intracranial abnormality, dehydration, electrolyte abnormality, acute kidney injury, alcohol withdrawal, intoxication Patient arrives hemodynamically stable, afebrile, without respiratory distress with vital signs interpreted by myself. Initial physical exam reveals a scabbed laceration to the frontal area of patient's scalp. Patient also has a small scabbed area to the right temporal region Both lacerations have well- approximated edges with no erythema, ecchymosis, bleeding, or drainage from the wounds. Patient has resting tremor that is most noticeable in his right lower extremity. Sensations intact with 2+ pulses and 5 out of 5 strength. Pupils are pinpoint bilaterally with intact extraocular movements. Rest of exam is unremarkable Initial diagnostic plan: Laboratory studies including chest x-ray and CT of head without contrast, CIWA evaluation, seizure precautions, rally bag for hydration While attempting to obtain patient's records from his recent ER visit contacted [facility]. They report the patient has not been seen at their facility since June. We then contacted [facility] who states patient was recently there. We are attempting to obtain previous records including CT scan for comparison. Results from initial plan were reviewed and interpreted by myself, pertinent positives include: Magnesium 1.2, rest of laboratory studies were nonactionable. Patient has not been able to give us a urine sample for urinalysis or urine drug screen at this time. Chest x-ray has a questionable right basilar atelectasis. CT of head without contrast shows late subacute or chronic right posterior subdural hematoma. We were able to obtain previous CT scans from [place] that shows patient has had this right subdural hematoma since his initial visit there on January 05 2025. Interventions in the ED: Rally pack for hydration and electrolyte replacement. Seizure precautions were also maintained. We also had physical therapy evaluate patient. They state that patient is too weak and unsteady and to safely be discharged home. Patient was made aware of the results and the findings, upon reevaluation patient has remained stable throughout stay, symptoms remained stable. Upon reevaluation patient is resting comfortably in bed with no signs of acute distress. Consultation/discussion with other physicians: Spoke with hospitalist Dr. Rousseau regarding patient's presenting complaint and workup findings. He was agreeable to accept patient to this facility for treatment of low magnesium, alcohol withdrawal, generalized weakness. Disposition: Reviewed the findings today's workup with patient and informed him that we would like to admit due to his generalized weakness, low magnesium and concern for alcohol withdrawal. He was agreeable for admission at this time. Critical Care Critical Care Time Critical Care Time: No
--- NOTE | 2025-02-04 14:09 | ECG_ITS ---
APPROVED REPORT Exam: Resting ECG HR:65 bpm ECG Measurements Heart Rate 65 AXES QRSd 92 QRS 74 QT 447 T 57 QTc 458 Conclusion ATRIAL FIBRILLATION ABNORMAL RHYTHM ECG UNCONFIRMED REPORT Electronically signed by : Bruno Melo, 02/06/2025 15:07:23
--- NOTE | 2025-02-04 14:14 | CT_ITS ---
FINAL REPORT TECHNIQUE: Thin section axial images were obtained from skull base to vertex without contrast. Coronal reconstruction images were obtained from the axial data. Exam was performed using dose reduction techniques such as automated exposure control, adjustment of the mA and kV according to patient size, and use of iterative reconstruction technique. CLINICAL HISTORY: headache/weakness COMPARISON: None FINDINGS: There is no mass effect or midline shift. There is atrophy with periventricular hypodensity favored to be related to chronic small vessel ischemia. There is no acute intracranial hemorrhage. There is subdural collection on the right posteriorly. This is not CSF attenuation. This is favored to represent subacute or early chronic subdural hematoma/hemorrhage. The posterior fossa is without acute abnormality. The basilar cisterns are preserved. The soft tissues are without acute abnormality. No acute osseous abnormality is identified. IMPRESSION: No acute intracranial hemorrhage or evidence of acute large cortical infarct. Late subacute or early chronic right posterior subdural hematoma/hemorrhage. Reviewed, Interpreted and Dictated by Flor Cisneros MD Transcribed by Karolina Elliott Authenticated and [facility]
--- NOTE | 2025-02-04 14:15 | XR_ITS ---
FINAL REPORT CLINICAL HISTORY: weakness FINDINGS: A portable view of the chest was obtained. Cardiac and mediastinal silhouettes are within normal limits. There is medial right basilar opacity, could be atelectasis. There is no pleural effusion or pneumothorax. IMPRESSION: Possible right basilar atelectasis. Reviewed, Interpreted and Dictated by Flor Cisneros MD Transcribed by Alicia Monroe Authenticated and [facility]
--- OUTSIDE RECORDS SUMMARY | 2025-02-04 14:20 | XMS_ITS | Encounter Summary ---
Author Organization [employer] ([place], [place], [place], [place]) Address [address] [place] [address] Care Team Providers Care Engineering Supplies Sales Name Role Phone [facility], Find-A-Doc Primary Care Provider [facility], Find-A-Doc Primary Care Provider Encounter Details Date Type Department Care Team (Late st Contact Info) Description 03/04/2019 Transcribed Document [facility] Family Medicine [place] [address] ProviderMary Kate MD [address] [place] [id number] Social History Tobacco Use Types Packs/Day Years Used Date Smoking Tobacco: Never Assessed Sex and Gender Information Value Date Recorded Sex Assigned at Not on file Legal Sex Male 5:22 PM CDT Gender Identity Not on file Sexual Orientation Not on file documented as of this encounter Miscellaneous Notes * [employer]ner Conversion Note - Mary Kate ProviderMD - 03/04/2019 8:00 AM 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 Name: PROSPER MILLS Viet KirshnaB./Sex: 1965 Male Med Rec #: [id number] Physician: RAZIA LANTIGUA MD-GAE Financial #: [id number] Pt. Type: O Room/Bed: N/1 Admit/Disch: 03/04/19 07:03:00 - Institution: [facility] PreOp Case Times Entry 1 In Preop 03/04/19 07:16:00 Ready for Holding n/a Room Patient Ready for 03/04/19 07:32:00 Surgery Patient Out of Preop 03/04/19 07:32:00 Patient Out of 03/04/19 07:32:00 Holding Room [facility] PreOp Case Times Audit 03/04/19 07:32:30 Svp Research And Strategic Analysis: [id number] Modifier: [id number] <+> 1 Patient Out of Preop <+> 1 Patient Ready for Surgery <+> 1 Patient Out of Holding Room Finalized By: Amee Valladares Rn Document Signatures Signed By: Amee Valladares Rn 03/04/19 07:32 Electronically signed by Chava [facility] Conversion Personal Financial Advisor Cerner at 08/08/2022 11:25 PM CDT documented in this encounter Plan of Treatment Not on file documented as of this encounter Visit Diagnoses Not on filedocumented in this encounter Care Teams Engineering Supplies Sales Relationship Specialty Start Date End Date [facility], Find-A-Doc [facility] [place] [address] PCP - General 01/05/25 01/05/25 [facility], Find-A-Doc [facility] [place] [address] PCP - General 02/02/25 documented as of this encounter
--- OUTSIDE RECORDS SUMMARY | 2025-02-04 14:20 | XMS_ITS | Encounter Summary ---
Author Organization [employer] ([place], [place], [place], [place]) Address [address] [place] [address] Care Team Providers Care County Extension Agent Name Role Phone [facility], Find-A-Doc Primary Care Provider [facility], Find-A-Doc Primary Care Provider Encounter Details Date Type Department Care Team (Late st Contact Info) Description 01/08/2019 Transcribed Document [facility] [place] [address] [place] [address] ProviderMary Kate MD [address] [place] [address] Social History Tobacco Use Types Packs/Day Years [...] Standing scale Routine Weight Entry Format : [place] Routine Weight, Pounds : 155 lb Routine Weight, Ounces : 1 oz Routine Weight Calculation : 70.48 kg Height Source : Chart Height Entry Format : [place] Height, Feet : 5 ft Height, Inches : 7 Inch Clinical Height : 170.18 cm Body Surface Area (BSA), Routine : 1.82 m2 Body Mass Index (BMI), Routine : 24.34 kg/m2 Pedro Luis Lopez Cna I - 01/08/2019 6:28 EDT Electronically signed by Chava [facility] Conversion Sap Ppm Consultant Cerner at 08/08/2022 11:07 PM CDT documented in this encounter Plan of Treatment Not on file documented as of this encounter Visit Diagnoses Not on filedocumented in this encounter Care Teams County Extension Agent Relationship Specialty Start Date End Date [facility] [place], Find-A[facility] [place] [address] PCP - General 01/05/25 01/05/25 [facility] [place] Find[facility] [place] [address] PCP - General 02/02/25 documented as of this encounter
--- OUTSIDE RECORDS SUMMARY | 2025-02-04 14:20 | XMS_ITS | Encounter Summary ---
Author Organization [employer] ([place], [place], [place], [place]) Address [address] [place] [address] Care Team Providers Care Profiling Machine Set Up Operator Tool Name Role Phone [facility], Find-A-Doc Primary Care Provider [facility], Find-A-Doc Primary Care Provider Encounter Details Date Type Department Care Team (Late st Contact Info) Description 01/08/2019 Transcribed Document [facility] [place] [facility] [place] [address] ProviderMary Kate MD [address] [place] [id number] Social History Tobacco Use Types Packs/Day Years Used Date Smoking Tobacco: Never Assessed Sex and Gender Information Value Date Recorded Sex Assigned at Not on file Legal Sex Male 5:22 PM CDT Gender Identity Not on file Sexual Orientation Not on file documented as of this encounter Miscellaneous Notes * Cerner Conversion Note - Mary Kate ProviderMD - 01/08/2019 5:00 AM CDT Chart Check - Review Order Profile Entered On: 01/08/2019 3:45 EDT Performed On: 01/08/2019 5:00 EDT by GIOVANNI NATARAJAN, RN Chart Check Powerplans Initiated/Discontinued as Appropriate : Yes All Active Orders Reviewed : Yes GIOVANNI NATARAJAN, SHANELL - 01/08/2019 3:45 EDT Electronically signed by Chava [facility] Conversion Line Service Supervisor Cerner at 08/08/2022 11:29 PM CDT documented in this encounter Plan of Treatment Not on file documented as of this encounter Visit Diagnoses Not on filedocumented in this encounter Care Teams Profiling Machine Set Up Operator Tool Relationship Specialty Start Date End Date [facility] [place], Find-A-Doc [facility] [place] [address] PCP - General 01/05/25 01/05/25 [facility] [place], Find-A-Doc [facility] [place] [address] PCP - General 02/02/25 documented as of this encounter
--- OUTSIDE RECORDS SUMMARY | 2025-02-04 14:20 | XMS_ITS | Encounter Summary ---
Author Organization [employer] ([place], [place], [place], [place]) Address [address] [place] [address] Care Team Providers Care Eyewear Manufacturing Supervisor Name Role Phone [facility], Find-A-Doc Primary Care Provider [facility], Find-A-Doc Primary Care Provider Encounter Details Date Type Department Care Team (Late st Contact Info) Description 03/04/2019 Transcribed Document [facility] Family Medicine [address] [place] [address] ProviderMary Kate MD [address] [place] [id number] Social History Tobacco Use Types Packs/Day Years Used Date Smoking Tobacco: Never Assessed Sex and Gender Information Value Date Recorded Sex Assigned at Not on file Legal Sex Male 5:22 PM CDT Gender Identity Not on file Sexual Orientation Not on file documented as of this encounter Miscellaneous Notes * Cerner Conversion Note - Mary Kate ProviderMD - 03/04/2019 8:31 AM 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 Where: [address] [facility] [address] [place] [address]- Medications What How Much When [...] symptoms. ??? Medicines. These may include: ? Qsob-oom-jhcncpv antacids. ? Medicines that make your stomach [...] ? Fatty foods, like fried foods. ? [place] fruits, like oranges or lemon. ? Other [...] not drink alcohol. General instructions ??? Take rddz-qbz-hlqhpfa and prescription medicines only as told by [...] 06/28/2004 Document Revised: 11/11/2017 Document Reviewed: 11/11/2017 [employer] Patient Education ?? 2019 [employer] Esophagitis Esophagitis is inflammation of the [...] vinegar, hot sauces, and barbecue sauce. ? [place] fruit juices and citrus fruits, such as oranges, boogie, and limes. ? Tomato-based foods, such as red sauce, chili, salsa, and pizza with red sauce. ? Fried and fatty foods, such as donuts, greek fries, potato chips, and high-fat dressings. ? [...] any changes in your symptoms. ??? Take nzoo-drw-sbyhcxi and prescription medicines only as told by [...] 05/16/2005 Document Revised: 09/13/2016 Document Reviewed: 08/03/2015 [employer] Patient Education ?? 2019 [employer] Monitored Anesthesia Care, Care After These [...] eating solid foods. General instructions ??? Take bppl-qyg-tqenlel and prescription medicines only as told by [...] 07/29/2016 Document Revised: 11/22/2017 Document Reviewed: 07/29/2016 [employer] Patient Education ?? 2019 [employer] Esophagogastroduodenoscopy, Care After Refer to this [...] 03/25/2013 Document Revised: 09/13/2016 Document Reviewed: 03/01/2016 [employer] Patient Education ?? 2019 [employer] pantoprazole (oral/injection) (dixon TOE pra zole) Protonix [...] a broken bone while taking this medicine chcf or more than once per day. What [...] medicine that contains rilpivirine (Edurant, Complera, Juluca, Nguyenefsey); or ?? you are allergic to pantoprazole [...] may report side effects to FDA at 7-633-WYC-9112. What other drugs will affect pantoprazole? Tell your doctor about all your other medicines, especially: ?? digoxin; ?? methotrexate; or ?? a diuretic or 'water pill.' This list is not complete. Other drugs may affect pantoprazole, including prescription and rnhc-yba-ifqpbvu medicines, vitamins, and herbal products. Not all [...] to ensure that the information provided by [employer]. ('[employer]') is accurate, up-to-date, and complete, but no guarantee is made to that effect. Drug information contained herein may be time sensitive. [employer] information has been compiled for use by healthcare practitioners and consumers in the [place] and therefore [employer] does not warrant that uses outside of the [place] are appropriate, unless specifically indicated otherwise. [employer]'s drug information does not endorse drugs, diagnose patients or recommend therapy. [employer]'s drug information is an informational resource designed [...] effective or appropriate for any given patient. [facility] does not assume any responsibility for any aspect of healthcare administered with the aid of information [facility] provides. The information contained herein is not intended to cover all possible uses, directions, precautions, warnings, drug interactions, allergic reactions, or adverse effects. If you have questions about the drugs you are taking, check with your doctor, nurse or pharmacist. Copyright 2377-1889 [facility] [employer]. Version: 19.02. Revision Date: 10/15/2017. Emergency Awareness [...] Assistance with quitting is available by contacting 3-615-CRPJ-NOW. This is a free resource providing counseling, [...] Laboratory or Other Results This Visit Patient Name:PROSPER MILLS I have received this information and was given the opportunity to ask questions. 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 Name: 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 Signature: Relationship to Patient: Clinician/Hospital Naval Aircrewman Helicopter Signature: Date: documented in this encounter Plan of Treatment Not on file documented as of this encounter Visit Diagnoses Not on filedocumented in this encounter Care Teams Eyewear Manufacturing Supervisor Relationship Specialty Start Date End Date [facility], Find-A-Doc [place] Find-a-Doc [place] [address] PCP - General 01/05/25 01/05/25 [facility], Find-A-Doc [facility] [place] [address] PCP - General 02/02/25 documented as of this encounter
--- OUTSIDE RECORDS SUMMARY | 2025-02-04 14:20 | XMS_ITS | Encounter Summary ---
Author Organization [employer] ([place], [place], [place], [place]) Address [address] [place] [address] Care Team Providers Care Tenterer Name Role Phone [facility], Find-A-Doc Primary Care Provider [facility], Find-A-Doc Primary Care Provider Encounter Details Date Type Department Care Team (Late st Contact Info) Description 01/08/2019 Transcribed Document [facility] Family Medicine [facility] [place] [address] ProviderMary Kate MD [address] [place] [id number] Social History Tobacco Use Types Packs/Day Years [...] Performed On: 01/08/2019 18:00 EDT by YUMIKO YEH PT Discharge Summary Reason for Discharge : [...] YUMIKO YEH, PT - 01/14/2019 7:56 EDT Safety Teacher Goals Other PT LTG Grid Goal #1 [...] YUMIKO YEH, PT - 01/14/2019 7:56 EDT documented in this encounter Plan of Treatment Not on file documented as of this encounter Visit Diagnoses Not on filedocumented in this encounter Care Teams Tenterer Relationship Specialty Start Date End Date [facility] [place], Find-A-Doc [facility] [place] [address] PCP - General 01/05/25 01/05/25 [facility] [place], Find-A-Doc [facility] [place] [address] PCP - General 02/02/25 documented as of this encounter
--- OUTSIDE RECORDS SUMMARY | 2025-02-04 14:20 | XMS_ITS | Referral Summary ---
Author Organization [employer] ([place], [place], [place], [place]) Address [address] [place] [address] Care Team Providers Care Emergency Veterinary Technician Name Role Phone [facility] Connection, Find-A-Doc Primary Care Provider Encounters Date Type Department Care Team Description 02/02/2025 5:15 PM EDT - 02/03/2025 4:49 AM EDT Emergency [facility] Emergency Department [address] [place] [address] Lele Mansfield MD Gilbert, Cody, Fall, initial encounter (Primary Dx); Alcoholic intoxication without complication (HCC); Lactic acidosis Discharge Disposition: Home or Self Care 02/02/2025 Travel 01/05/2025 6:07 PM EDT - 01/15/2025 12:30 PM EDT Hospital Encounter [facility] 5A Neuro Telemetry Unit [address] [place] [address] Chris Zamudio MD Tovar, Jesus V, MD Khan, Imran, MD Macarthy, Toks E, MD Farooqui, Jamil, MD Cerebellar stroke (HCC) (Primary Dx); Subdural hematoma (HCC); Thrombocytopenia (HCC); Conjunctivitis of left eye, unspecified conjunctivitis type Discharge Disposition: Rehab Facility 01/05/2025 Travel from Last 3 Months Allergies No known active allergies Medications ferrous sulfate 325 (65 FE) MG tablet Take 1 tablet (325 mg total) by mouth 3 (three) times a week MON/WED/FRI. Active simvastatin (ZOCOR) 20 MG tablet Take 1 tablet (20 mg total) by mouth nightly. Active amLODIPine (NORVASC) 2.5 MG tablet Take 1 tablet (2.5 mg total) by mouth daily for 30 days. 30 tablet 01/17/20 25 Active folic acid (FOLVITE) 1 MG tablet Take 1 tablet (1 mg total) by mouth daily for 30 days. 30 tablet 01/17/20 Active metoprolol tartrate (LOPRESSOR) 50 MG tablet Take 1 tablet (50 mg total) by mouth 2 (two) times daily for 30 days. 60 tablet 01/16/20 Active pantoprazole (PROTONIX) 40 MG tablet Take 1 tablet (40 mg total) by mouth daily for 30 days. 30 tablet 01/17/20 Active thiamine 100 MG tablet Take 2 tablets (200 mg total) by mouth daily for 30 days. 60 tablet 01/17/20 Active simvastatin (ZOCOR) 20 MG tablet Take 1 tablet (20 mg total) by mouth nightly. Discontinued acetaminophen (TYLENOL) 500 MG tablet Take 2 tablets (1,000 mg total) by mouth every 6 (six) hours as needed for up to 10 days. 30 tablet 01/16/20 docusate sodium (COLACE) 100 MG capsule Take 1 capsule (100 mg total) by mouth 2 (two) times daily as needed for constipation for up to 10 days. 10 capsule 01/16/20 magnesium oxide (MAG-OX) 400 mg tablet Take 0.5 tablets (200 mg total) by mouth daily with breakfast for 6 days. 3 tablet 01/17/20 Active Problems Problem Noted Date Diagnosed Date SDH (subdural hematoma) 01/05/2025 Social History Tobacco Use Types Packs/Day Years [...] Do you speak a language other than Mongolian at ho fl? No 01/06/2025 Do you want help with [...] on file Sexual Orientation Not on file Last Filed Vital Signs Vital Sign Reading Time Taken Comments Blood Pressure 113/74 02/03/2025 2:34 AM EDT Pulse 66 02/03/2025 2:34 AM EDT Temperature 36.8 C (98.2 F) 02/02/2025 5:26 PM EDT Respiratory Rate 13 02/03/2025 2:10 AM EDT Oxygen Saturation 95% 02/02/2025 7:50 PM EDT Inhaled Oxygen Concentration 40% 01/08/2025 1 1:13 PM EDT Weight 61.2 kg (135 lb) 02/02/2025 5:26 PM EDT Height 167.6 cm (5' 6 ) 02/02/2025 5:26 PM EDT Body Mass Index 21.79 02/02/2025 5:26 PM EDT Plan of Treatment Not on file Procedures Procedure Name Priority Date/Time Associated Diagnosis Comments LACTIC ACID (SJ - BKR) STAT 1:08 AM EDT LACTIC ACID WITH REFLEX STAT 02/02/2025 10:32 PM EDT CREATINE KINASE (CK) Add-On 02/02/2025 7:24 PM EDT LACTIC ACID (SJ - BKR) STAT 7:24 PM EDT ETHANOL STAT 02/02/2025 7:24 PM EDT COMPREHENSIVE METABOLIC PANEL STAT 02/02/2025 7:[address] CERVICAL SPINE WITHOUT IV CONTRAST STAT 02/02/2025 6:[address] BRAIN WITHOUT IV CONTRAST STAT 02/02/2025 6:02 PM EDT LACTIC ACID WITH REFLEX STAT 02/02/2025 5:44 PM EDT [place] BROWN TOP STAT 02/02/2025 5:33 PM EDT [place] PST (EXTRA TUBES) STAT 02/02/2025 5:33 PM EDT [place] BLUE TOP (EXTRA TUBES) STAT 02/02/2025 5:33 PM EDT [place] EXTRA TUBES STAT 02/02/2025 5:33 PM EDT CBC W/ AUTO DIFF STAT 02/02/2025 5:33 PM EDT FS_MODEL_IP_ECG 12-LEAD Routine 02/02/2025 5:23 PM EDT NOVA GLUCOSE POC Routine 01/15/2025 10:2 8 AM EDT FS_MODEL_IP_ECG 12-LEAD Routine 01/14/2025 8:35 PM EDT MANUAL DIFFERENTIAL Routine 01/14/2025 3 :46 AM EDT BASIC METABOLIC PANEL Routine 01/14/2025 3:46 AM EDT CBC W/ AUTO DIFF Routine 01/14/2025 3:46 AM EDT IRON AND TIBC Add-On 01/13/2025 3:44 AM EDT PHOSPHORUS Routine 01/13/2025 3:44 AM EDT MAGNESIUM Routine 01/13/2025 3:44 AM EDT BASIC METABOLIC PANEL Routine 01/13/2025 3:[address] BRAIN WITHOUT IV CONTRAST STAT 01/12/2025 1:38 PM EDT BASIC METABOLIC PANEL Routine 01/12/2025 3:22 AM EDT PHOSPHORUS Routine 01/12/2025 3:22 AM EDT MAGNESIUM Routine 01/12/2025 3:22 AM EDT MANUAL DIFFERENTIAL Routine 01/11/2025 2 :53 AM EDT PHOSPHORUS Routine 01/11/2025 2:53 AM EDT MAGNESIUM Routine 01/11/2025 2:53 AM EDT COMPREHENSIVE METABOLIC PANEL Routine 01/11/2025 2:53 AM EDT CBC W/ AUTO DIFF Routine 01/11/2025 2:53 AM EDT MANUAL DIFFERENTIAL Routine 01/10/2025 3 :36 AM EDT PHOSPHORUS Routine 01/10/2025 3:36 AM EDT MAGNESIUM Routine 01/10/2025 3:36 AM EDT COMPREHENSIVE METABOLIC PANEL Routine 01/10/2025 3:36 AM EDT CBC W/ AUTO DIFF Routine 01/10/2025 3:36 AM EDT FS_MODEL_IP_ECG 12-LEAD [...] Routine 01/08/2025 1:59 AM EDT CBC HEMOGRAM (SJ-BKR) Routine 01/08/2025 1:58 AM EDT NOVA GLUCOSE POC Routine 01/07/2025 3:52 PM EDT NOVA GLUCOSE POC Routine 01/07/2025 11:5 8 AM EDT PHOSPHORUS Add-On 01/07/2025 3:03 AM EDT [facility] CBC SCAN Routine 01/07/2025 3:03 AM EDT CBC HEMOGRAM (SJ-BKR) STAT 01/07/2025 3:03 AM EDT COMPREHENSIVE METABOLIC PANEL Routine 01/07/2025 3:03 AM EDT FS_MODEL_IP_ECG 12-LEAD Routine 01/06/2025 8:34 PM EDT HEMOGLOBIN AND HEMATOCRIT STAT 01/06/2025 6:09 PM EDT NOVA GLUCOSE POC Routine 01/06/2025 6:02 PM EDT NOVA GLUCOSE POC Routine 01/06/2025 5:59 PM EDT PHOSPHORUS Routine 01/06/2025 12:54 PM EDT HEMOGLOBIN AND HEMATOCRIT STAT 01/06/2025 12:54 PM EDT NOVA GLUCOSE POC Routine 01/06/2025 11:[address] BRAIN WITHOUT IV CONTRAST Routine 01/06/2025 5:18 AM EDT CREATINE KINASE (CK) Add-On 01/06/2025 4:17 AM EDT LACTIC ACID WITH REFLEX Routine 01/06/2025 4:17 AM EDT PHOSPHORUS Routine 01/06/2025 4:17 AM EDT MAGNESIUM Routine 01/06/2025 4:17 AM EDT CBC W/ AUTO DIFF STAT 01/06/2025 4:17 AM EDT COMPREHENSIVE METABOLIC PANEL STAT 01/06/2025 4:17 AM EDT CBC HEMOGRAM (SJ-BKR) Routine 01/06/2025 1:35 AM EDT NOVA GLUCOSE POC Routine 01/05/2025 11:1 1 PM EDT FS_MODEL_IP_TRANSFUSE PHERESED PLATELETS Routine 01/05/2025 10:50 PM EDT FS_MODEL_IP_TRANSFUSE PHERESED PLATELETS Routine 01/05/2025 10:14 PM EDT HEMOGLOBIN AND HEMATOCRIT STAT 01/05/2025 9:47 PM EDT TYPE AND SCREEN ([place] BKR) STAT 01/05/2025 8:39 PM EDT PT/INR, PTT STAT 01/05/2025 8:39 PM EDT FS_MODEL_IP_PREPARE PLATELET PHERESIS STAT 01/05/2025 7:[address] BRAIN WITHOUT IV CONTRAST STAT 01/05/2025 6:51 PM EDT ABO/RH CONFIRMATION/RETYPE ( BKR) STAT 01/05/2025 6:32 PM EDT MAGNESIUM Add-On 01/05/2025 6:32 PM EDT [facility] CBC SCAN Routine 01/05/2025 6:32 PM EDT COMPREHENSIVE METABOLIC PANEL STAT 01/05/2025 6:32 PM EDT CBC W/ AUTO DIFF STAT 01/05/2025 6:32 PM EDT ACETAMINOPHEN LEVEL STAT 01/05/2025 6 :32 PM EDT SALICYLATE LEVEL STAT 01/05/2025 6:32 PM EDT ETHANOL STAT 01/05/2025 6:32 PM EDT FS_[facility]_MODEL CRITICAL CARE Routine 01/05/2025 6:18 PM EDT FS_MODEL_IP_ECG 12-LEAD Routine 01/05/2025 6:11 PM EDT EKG-SCANNED 01/05/2025 EKG-SCANNED 01/05/2025 EKG-SCANNED 01/05/2025 from Last 3 Months Results * (ABNORMAL) Lactic acid (SJ) (02/03/2025 1:08 AM EDT) Only the most recent of2 resultswithin the time period is included. Lactic Acid Level (mmol/L) 3.2(H) 0.5 - 2.2 mmol/L 02/03/2025 1:29 AM EDT [facility] Blood Venipuncture / Unknown 02/03/2025 1:08 AM EDT 02/03/2025 1:11 AM EDT Narrative [facility] - 02/03/2025 1:29 AM EDT Specimen [facility] LAB BLOOD ORDERABLES Final Re sult Performing Organization Address [facility] Co de Phone Number [facility] [address] [phone] * (ABNORMAL) Lactic Acid with reflex (SJ) (02/02/2025 10:32 PM EDT) Only the most recent of3 resultswithin the time period is included. Lactic Acid Level (mmol/L) 4.3(HH) 0.5 - 2.2 mmol/L 02/02/2025 11:06 PM EDT [facility] Blood Venipuncture / Unknown 02/02/2025 10:32 PM EDT 02/02/2025 10:37 PM EDT [facility] LAB BLOOD ORDERABLES Final Re sult Performing Organization Address City/[facility] Co de Phone Number [facility] [address] [phone] * Creatine Kinase (CK) (02/02/2025 7:24 PM EDT) Only the most recent of2 resultswithin the time period is included. Pathologist [facility] [place] Total CK 117 30 - 200 U/L 02/02/2025 9:17 PM EDT [facility] Blood Venipuncture / Unknown 02/02/2025 7:24 PM EDT 02/02/2025 7:28 PM EDT Ciarra Aguilar [employer] LAB BLOOD ORDERABLES Final Re sult Performing Organization Address City/[facility]/ZIP Co de Phone Number [facility] [address] [phone] * (ABNORMAL) Ethanol (02/02/2025 7:24 PM EDT) Only the most recent of2 resultswithin the time period is included. [facility] [address] Ethanol Lvl 388(H) <=10 mg/dL 02/02/2025 8:14 PM EDT [facility] Blood Venipuncture / Unknown 02/02/2025 7:24 PM EDT 02/02/2025 7:28 PM EDT Narrative [facility] - 02/02/2025 8:14 PM EDT Lower limit of detection is 10.00 mg/dL. 50-100 mg/dL
Impaired Reflexes: 100-300 mg/dL
Depression of MAILROOM PERSONNEL: 300 mg/dL or >
Coma may occur; 400 mg/dL or >
may occur

This test is not intended for legal purposes or use in employment related testing. Lele Mansfield MD LAB BLOOD ORDERABLES Final Resu lt Performing Organization Address City/[facility]/ZIP Co de Phone Number [facility] [address] [phone] * (ABNORMAL) Comprehensive metabolic panel (02/02/2025 7:24 PM EDT) Only the most recent of8 resultswithin the time period is included. [facility] [address] Sodium 135(L) 136 - 145 meq/L 02/02/2025 8:14 PM EDT [facility] Potassium 4.3 3.4 - 5.1 meq/L 02/02/2025 8:14 PM [facility] Chloride 94(L) 98 - 112 meq/L 02/02/2025 8:14 PM [facility] CO2 19(L) 22 - 29 meq/L 02/02/2025 8:14 PM [facility] Calcium 8.6 8.4 - 10.2 mg/dL 02/02/2025 8:14 PM [facility] Glucose 76 74 - 100 mg/dL 02/02/2025 8:14 PM [facility] BUN 7.8(L) 8.4 - 25.7 mg/dL 02/02/2025 8:14 PM [facility] Creatinine 0.74 0.60 - 1.30 mg/dL 02/02/2025 8:14 PM [facility] BUN/Creatinine 11 8 - 20 02/02/2025 8:14 PM [facility] eGFR (mL/min/1.73m2) 104 >=60 mL/min/1.7 3m2 02/02/2025 8:14 PM [facility] Comment:ESTIMATED GFR IS NOT ACCURATE CREATININE CLEARANCE IN PREDICTING GLOMERULAR FILTRATION RATE. ESTIMATED GFR IS NOT APPLICABLE FOR DIALYSIS PATIENTS. Albumin 3.5 3.5 - 5.0 g/dL 02/02/2025 8:14 PM [facility] Alkaline Phosphatase 65 40 - 150 U/L 02/02/2025 8:14 PM [facility] ALT 23 <55 U/L 02/02/2025 8:14 PM [facility] AST 33 5 - 34 U/L 02/02/2025 8:14 PM [facility] Total Bilirubin 0.3 0.3 - 1.2 mg/dL 02/02/2025 8:14 PM [facility] Protein, Total 7.6 6.4 - 8.3 g/dL 02/02/2025 8:14 PM [facility] Globulin 4.1 2.5 - 4.1 g/dL 02/02/2025 8:14 PM EDT [facility] Anion Gap 26(H) 4 - 12 02/02/2025 8:14 PM EDT [facility] A/G Ratio 0.9 0.7 - 1.9 02/02/2025 8:14 PM EDT [facility] Osmolality Calc 267.1 mOsm/kg 8:14 PM EDT [facility] Blood Venipuncture / Unknown 02/02/2025 7:24 PM EDT 02/02/2025 7:28 PM EDT us Lele Mansfield MD LAB BLOOD ORDERABLES Final Resu lt [facility] [address] [phone] * CT cervical spine without contrast (02/02/2025 [...] dictated by Beata Mcdermott M.D. Ciarra Aguilar NP IMG CT ORDERABLES Final Resul t * CT brain without IV contrast (02/02/2025 6:02 PM EDT) Only the most recent of4 resultswithin the time period is included. Anatomical Region Laterality Modality Brain, Head Computed [...] dictated by Beata Mcdermott M.D. Ciarra Aguilar STRAP CUTTER IMG CT ORDERABLES Final Resul t * PST Top Extra Tubes (02/02/2025 5:33 PM EDT) HOLD SPECIMEN (SJ - BKR) Hold for add-ons. 02/02/2025 7:00 PM EDT [facility] Comment:Auto resulted. Blood (Blood, Veinous) Venipuncture / Unknown 02/02/2025 5:33 PM EDT 02/02/2025 5:43 PM EDT Lele Mansfield MD LAB BLOOD ORDERABLES Final Resu lt [facility] [address] [phone] * Brown Top Extra Tubes (02/02/2025 5:33 PM EDT) HOLD SPECIMEN (SJ - BKR) Hold for add-ons. 02/02/2025 7:00 PM EDT [facility] Comment:Auto resulted. Blood (Blood, Veinous) Venipuncture / Unknown 02/02/2025 5:33 PM EDT 02/02/2025 5:44 PM EDT us Lele Mansfield MD LAB BLOOD ORDERABLES Final Resu lt Performing Organization Address [facility]/ZIP Co de Phone Number [facility] [address] [phone] * Blue Top Extra Tubes (02/02/2025 5:33 PM EDT) HOLD SPECIMEN (SJ - BKR) Hold for add-ons. 02/02/2025 7:00 PM EDT [facility] Comment:Auto resulted. Blood (Blood, Veinous) Venipuncture / Unknown 02/02/2025 5:33 PM EDT 02/02/2025 5:44 PM EDT us Lele Mansfield MD LAB BLOOD ORDERABLES Final Resu lt Performing Organization Address [facility] Co de Phone Number [facility] [address] [phone] * (ABNORMAL) CBC with Auto Diff (02/02/2025 5:33 PM EDT) Only the most recent of6 resultswithin the time period is included. WBC 5.2 4.2 - 9.1 K/ L 02/02/2025 6:11 PM EDT [facility] RBC 4.05(L) 4.63 - 6.08 M/ L 02/02/2025 6:11 PM EDT [facility] Hemoglobin 13.6(L) 13.7 - 17.5 GM/DL 02/02/2025 6:11 PM EDT [facility] Hematocrit 40.1 40.1 - 51.0 % 02/02/2025 6:11 PM EDT [facility] MCV 99(H) 79 - 92 fL 02/02/2025 6:11 PM EDT [facility] MCH 33.6(H) 25.7 - 32.2 pg 02/02/2025 6:11 PM EDT [facility] MCHC 33.9 32.3 - 36.5 GM/DL 02/02/2025 6:11 PM EDT [facility] RDW 13.6 11.6 - 14.4 % 02/02/2025 6:11 PM EDT [facility] Platelets 279 140 - 375 K/CU MM 02/02/2025 6:11 PM EDT [facility] MPV 9.4 9.4 - 12.4 fL 02/02/2025 6:11 PM EDT [facility] % Neutros 55 34 - 68 % 02/02/2025 6:11 PM EDT [facility] % Lymphs 34 22 - 53 % 02/02/2025 6:11 PM EDT [facility] % Monos 6 5 - 12 % 02/02/2025 6:11 PM EDT [facility] % Eos 4.0 1.0 - 7.0 % 02/02/2025 6:11 PM EDT [facility] % Baso 1 0 - 1 % 02/02/2025 6:11 PM EDT [facility] NRBC Absolute <0.01 0 - 0.012 K/ul 02/02/2025 6:11 PM EDT [facility] # Neutros 2.86 1.78 - 5.38 K/ L 02/02/2025 6:11 PM EDT [facility] # Lymphs 1.77 1.32 - 3.57 K/ L 02/02/2025 6:11 PM EDT [facility] # Monos 0.29(L) 0.30 - 0.82 K/ L 02/02/2025 6:11 PM EDT [facility] # Eos 0.21 0.04 - 0.54 K/ L 02/02/2025 6:11 PM EDT [facility] # Baso 0.06 0.01 - 0.08 K/ L 02/02/2025 6:11 PM EDT [facility] % Imm Grans 0.20 0.01 - 0.43 % 02/02/2025 6:11 PM EDT [facility] # IG <0.03 0.00 - 0.03 K/uL 02/02/2025 6:11 PM EDT [facility] Blood Venipuncture / Unknown 02/02/2025 5:33 PM EDT 02/02/2025 5:44 PM EDT Narrative [facility] - 02/02/2025 6:11 PM EDT When [...] Flag noted Atypical Lymph flag noted us Lele Mansfield MD LAB BLOOD ORDERABLES Final Resu lt [facility] [address] [phone] * ECG 12 lead (02/02/2025 5:23 PM EDT) Only the most recent of6 resultswithin the time period is included. VENTRICULAR RATE EKG/MIN 70 BPM GE MUSE ATRIAL RATE (MCT) 70 BPM GE MUSE VT Interval 146 ms GE MUSE QRS-INTERVAL (MSEC) 92 ms GE MUSE QT Interval 429 ms GE MUSE QTC Interval 463 ms GE MUSE P [place] 60 degrees GE MUSE R AXIS (MCT) 80 degrees GE MUSE T Wave [place] 73 degrees GE MUSE [place] Diagnosis Normal sinus rhythm Abnormal ECG When compared with ECG of 14-JAN-2025 20:35, Nonspecific T wave abnormality no longer evident in Inferior leads Confirmed by Ayse MENDOZA STEVE ([id number]) on 02/02/2025 9:40:08 PM GE MUSE 02/02/2025 5:23 PM EDT 02/02/2025 9:40 PM EDT us Lele Mansfield MD ECG ORDERABLES Final Result Performing Organization Address City/[facility]/ZIP Co de Phone Number JASON BARTHOLOMEW * (ABNORMAL) Glucose, Nova Meter (01/15/2025 10:28 AM EDT) Only the most recent of10 resultswithin the time period is included. Pathologist [facility] [place] POC-GLUCOSE 135(H) 70 - 110 mg/dL 01/15/2025 10:30 AM EDT [facility] Comment: In the event of poor peripheral blood flow, venous or arterial blood should be used due to the potential of erroneous results. Notified Nurse RBV Head Grower [phone] 01/15/2025 10:30 AM EDT [facility] Blood WHOLE BLOOD / Unknown 01/15/2025 10:28 AM EDT 01/15/2025 10:29 AM EDT Narrative [facility] - 01/15/2025 10:30 AM EDT Head Grower ID is - [id number] us Michael Haque MD POINT OF CARE TEST ORDERABLES Final Result Performing Organization Address City/[facility] Co de Phone Number [facility] [address] [phone] * (ABNORMAL) Manual Differential (01/14/2025 3:46 AM EDT) Only the most recent of3 resultswithin the time period is included. Pathologist [facility] [place] Total Counted 100 01/14/2025 6:03 AM EDT [facility] % Neutros (manual) 57 50 - 65 % 01/14/2025 6:03 AM EDT [facility] % Lymphs (manual) 21(L) 24 - 44 % 025 6:03 AM EDT [facility] % Monos (manual) 18(H) 4 - 5 % 01/15/20 25 6:03 AM EDT [facility] % Eos (manual) 3 0 - 3 % 01/14/2025 6:03 AM EDT [facility] % Baso (manual) 1 0 - 1 % 6:03 AM EDT [facility] RBC Morphology abnormal( A) Normal 01/14/2025 6:03 AM EDT [facility] Platelet Estimate Increased (A) Adequate 01/14/2025 6:03 AM EDT [facility] Anisocytosis 1+ 01/14/2025 6:03 AM EDT [facility] Hypochromia 1+ 01/14/2025 6:03 AM EDT [facility] Polychromasia 1+ 01/14/2025 6:03 AM EDT [facility] Macrocytes 1+ 01/14/2025 6:03 AM EDT [facility] Ovalocytes 1+ 01/14/2025 6:03 AM EDT [facility] # Neutrophils (manual) 3.02 K/ L 01/14/2025 6:03 AM EDT [facility] Blood Venipuncture / Unknown 01/14/2025 3:46 AM EDT 01/14/2025 4:39 AM EDT us Carlee Sutton MD LAB BLOOD ORDERABLES Final Re sult [facility] [address] [phone] * (ABNORMAL) Basic Metabolic Panel (01/14/2025 3:46 AM EDT) Only the most recent of3 resultswithin the time period is included. Sodium 141 136 - 145 meq/L 01/14/2025 5:09 AM EDT [facility] Potassium 3.8 3.4 - 5.1 meq/L 01/14/2025 5:09 AM EDT [facility] CO2 22 22 - 29 meq/L 01/14/2025 5:09 AM EDT [facility] Chloride 105 98 - 112 meq/L 01/14/2025 5:09 AM EDT [facility] Glucose 85 74 - 100 mg/dL 01/14/2025 5:09 AM EDT [facility] BUN 25.2 8.4 - 25.7 mg/dL 01/14/2025 5:09 AM EDT [facility] Creatinine 0.83 0.72 - 1.25 mg/dL 01/14/2025 5:09 AM EDT [facility] BUN/Creatinine 30(H) 8 - 20 01/14/2025 5:09 AM EDT [facility] Calcium 9.5 8.4 - 10.2 mg/dL 01/14/2025 5:09 AM EDT [facility] Anion Gap 18(H) 4 - 12 01/14/2025 5:09 AM EDT [facility] eGFR (mL/min/1.73m2) 101 >=60 mL/min/1.7 3m2 01/14/2025 5:09 AM EDT [facility] Comment:ESTIMATED GFR IS NOT ACCURATE CREATININE CLEARANCE IN PREDICTING GLOMERULAR FILTRATION RATE. ESTIMATED GFR IS NOT APPLICABLE FOR DIALYSIS PATIENTS. Osmolality Calc 285.0 mOsm/kg 5:09 AM EDT [facility] Blood Venipuncture / Unknown 01/14/2025 3:46 AM EDT 01/14/2025 4:38 AM EDT us Carlee Sutton MD LAB BLOOD ORDERABLES Final Re sult [facility] [address] [phone] * (ABNORMAL) Iron and TIBC (01/13/2025 3:44 AM EDT) Iron 47(L) 65 - 175 ug/dL 01/13/2025 4:47 PM EDT [facility] TIBC 279 250 - 435 ug/dL 01/13/2025 4:47 PM EDT [facility] % Saturation 17 % 01/13/2025 4:47 PM EDT [facility] UIBC 232 01/13/2025 4:47 PM EDT [facility] Blood Venipuncture / Unknown 01/13/2025 3:44 AM EDT 01/13/2025 4:15 AM EDT us Carlee Sutton MD LAB BLOOD ORDERABLES Final Re sult Performing Organization Address [facility] de Phone Number [facility] [address] [phone] * Phosphorus (01/13/2025 3:44 AM EDT) Only the most recent of7 resultswithin the time period is included. Phosphorus 3.6 2.5 - 4.5 mg/dL 01/13/2025 4:40 AM EDT [facility] Blood Venipuncture / Unknown 01/13/2025 3:44 AM EDT 01/13/2025 4:15 AM EDT us Carlee Sutton MD LAB BLOOD ORDERABLES Final Re sult Performing Organization Address [facility] Phone Number [facility] [address] [phone] * Magnesium (01/13/2025 3:44 AM EDT) Only the most recent of6 resultswithin the time period is included. Magnesium 1.7 1.6 - 2.6 mg/dL 01/13/2025 4:40 AM EDT [facility] Blood Venipuncture / Unknown 01/13/2025 3:44 AM EDT 01/13/2025 4:15 AM EDT us Carlee Sutton MD LAB BLOOD ORDERABLES Final Re sult Performing Organization Address [facility] de Phone Number [facility] [address] [phone] * (ABNORMAL) CBC - Hemogram (SJ-BKR) (01/09/2025 2:22 AM EDT) Only the most recent of4 resultswithin the time period is included. WBC 3.6(L) 4.2 - 9.1 K/ L 01/09/2025 2:24 AM EDT [facility] RBC 2.92(L) 4.63 - 6.08 M/ L 01/09/2025 2:24 AM EDT [facility] Hemoglobin 10.5(L) 13.7 - 17.5 GM/DL 01/09/2025 2:24 AM EDT [facility] Hematocrit 31.0(L) 40.1 - 51.0 % 01/09/2025 2:24 AM EDT [facility] [facility] MCV 106(H) 79 - 92 fL 01/09/2025 2:24 AM EDT [facility] MCH 36.0(H) 25.7 - 32.2 pg 01/09/2025 2:24 AM EDT [facility] MCHC 33.9 32.3 - 36.5 GM/DL 01/09/2025 2:24 AM EDT [facility] RDW 14.6(H) 11.6 - 14.4 % 01/09/2025 2:24 AM EDT [facility] Platelets 123(L) 140 - 375 K/CU MM 01/09/2025 2:24 AM EDT [facility] MPV 9.1(L) 9.4 - 12.4 fL 01/09/2025 2:24 AM EDT [facility] Blood Venipuncture / Unknown 01/09/2025 2:22 AM EDT 01/09/2025 2:22 AM EDT us Whitney Moran MD LAB BLOOD ORDERABLES Final Resul t [facility] [address] [place] [address], [facility] [phone] * (ABNORMAL) CBC Scan (01/07/2025 3:03 AM EDT) Only the most recent of2 resultswithin the time period is included. Platelet Estimate Decreased (A) Adequate 01/07/2025 4:50 AM EDT [facility] RBC Morphology abnormal( A) Normal 01/07/2025 4:50 AM EDT [facility] Anisocytosis 1+ 01/07/2025 4:50 AM EDT [facility] Hypochromia 1+ 01/07/2025 4:50 AM EDT [facility] Polychromasia 1+ 01/07/2025 4:50 AM EDT [facility] Macrocytes 1+ 01/07/2025 4:50 AM EDT [facility] Microcytes 1+ 01/07/2025 4:50 AM EDT [facility] Poikilocytes 1+ 01/07/2025 4:50 AM EDT [facility] Blood Venipuncture / Unknown 01/07/2025 3:03 AM EDT 01/07/2025 3:41 AM EDT us Whitney Moran MD LAB BLOOD ORDERABLES Final Resul t Performing Organization Address City/[facility]/ZIP Co de Phone Number [facility] [address] [place] [address] * (ABNORMAL) Hemoglobin and Hematocrit (01/06/2025 6:09 PM EDT) Only the most recent of3 resultswithin the time period is included. Hemoglobin 9.3(L) 13.7 - 17.5 GM/DL 01/06/2025 6:22 PM EDT [facility] Hematocrit 26.2(L) 40.1 - 51.0 % 01/06/2025 6:22 PM EDT [facility] Blood Venipuncture / Unknown 01/06/2025 6:09 PM EDT 01/06/2025 6:19 PM EDT us Jarek Connor MD LAB BLOOD ORDERABLES Final Res ult [facility] [address] [phone] * Transfuse pheresed platelets (01/06/2025 1:47 AM EDT) Only the most recent of2 resultswithin the time period is included. Rambo Jackson PA-C FS_MODEL_IP_BLOOD TRANSFUSION OR DERABLES Final Result * PT/INR, PTT (01/05/2025 8:39 PM EDT) aPTT 27.0 22.0 - 32.0 seconds 01/05/2025 9:12 PM EDT [facility] Protime 10.3 9.0 - 12.0 seconds 01/05/2025 9:12 PM EDT [facility] INR 0.92 0.80 - 1.10 01/05/2025 9:12 PM EDT [facility] Blood STRUCTURE OF RIGHT HAND / Unknown Venipuncture / Unknown 01/05/2025 8:39 PM EDT 01/05/2025 8:47 PM EDT Russel Guerrero MD LAB BLOOD ORDERABLES Final Re sult Performing Organization Address [facility]/ZIP Co de Phone Number [facility] [address] [phone] * Type and Screen (01/05/2025 8:39 PM EDT) ABO/Rh A Positive 01/05/2025 8:46 PM EDT [facility] [place] Antibody Screen Negative 01/05/2025 8:46 PM EDT [facility] ([place] HISTCHK HIST CHECK PERFORMED 01/05/2025 8:46 PM EDT [facility] [place] Blood STRUCTURE OF RIGHT HAND / Unknown Venipuncture / Unknown 01/05/2025 8:39 PM EDT 01/05/2025 8:46 PM EDT Rambo Jackson PA-C [facility] TEST ORDERABLES F inal Result Performing Organization Address City/[facility]/ZIP Co de Phone Number [facility] [place] [address] [phone] * Prepare Plateletpheresis: 2 Units (01/05/2025 7:57 PM EDT) Issue Date/Time [id number] [facility] ([place]) Product Identification Platelets [facility] [place]) Product Code [id number] [facility] ([place]) Status Information TRANSFUSED [facility] [place]) Unit Number [id number] [facility] ([place]) Blood Type [address] [facility] ([place]) Rambo [place] PA-C FS_MODEL_IP_BLOOD BANK PRODUCT O RDERABLES Final Result [facility] ([place]) 1 [facility] [place] [address], [facility] [phone] * ABO/RH Confirmation/Retype (01/05/2025 6:32 PM EDT) RETYPE A Positive 01/05/2025 8:15 PM EDT [facility] ([place]) Comment:[id number] Blood Venipuncture / Unknown 01/05/2025 6:32 PM EDT 01/05/2025 8:15 PM EDT us Rambo Jackson PA-C [facility] TEST ORDERABLES F inal Result [facility] ([place]) 1 [facility] [place] [address], [facility] [phone] * (ABNORMAL) Acetaminophen level (01/05/2025 6:32 PM EDT) Acetaminophen Level <3(L) 10 - 30 ug/mL 01/05/2025 7:31 PM EDT [facility] Blood Venipuncture / Unknown 01/05/2025 6:32 PM EDT 01/05/2025 6:39 PM EDT us Rambo FIGUEREDO-C LAB BLOOD ORDERABLES Final Resul t Performing Organization Address [facility] Co de Phone Number [facility] [address] [phone] * (ABNORMAL) Salicylate level (01/05/2025 6:32 PM EDT) Salicylate Lvl <5.0(L) 15.0 - 30.0 mg/dL 01/05/2025 7:31 PM EDT [facility] Comment: <20 mg/dL therapeutic >30 mg/dL toxic >60 mg/dL fatalities Occur Blood Venipuncture / Unknown 01/05/2025 6:32 PM EDT 01/05/2025 6:39 PM EDT Narrative [facility] - 01/05/2025 7:31 PM EDT Therapeutic: 15 - 30 mg/dL Toxic Levels: > 30 mg/dL Lethal: > 70 mg/dL Rambo FIGUEREDO-C LAB BLOOD ORDERABLES Final Resul t Performing Organization Address [facility] Co de Phone Number [facility] [address] [phone] * Critical Care (01/05/2025 6:18 PM EDT) [...] or life-threatening deterioration of the following conditions: MAILROOM PERSONNEL failure or compromise Critical care was time spent personally by me on the following activities: Discussions with consultants, examination of patient, ordering and performing treatments and interventions, ordering and review of laboratory studies, ordering and review of radiographic studies, pulse oximetry, re-evaluation of patient's condition and review of old charts Jarek Connor MD PROCEDURE/MINOR SURGICAL ORDER PRANAY Final Result * EKG-SCANNED (01/05/2025) Only the most recent of3 resultswithin the time period is included. Narrative 01/05/2025 Ordered by an unspecified provider. us Default Scanning Provider SCAN ORDERS Final Result from Last 3 Months Insurance [employer] MEDICARE PPO Advance Directives For more information, please contact: [phone] Documents on File Type Date Recorded Patient Administration Manager Expl anation Advance Directives and Living Will 01/06/2025 10:42 AM Living Will Directiv e Advance Directives and Living Will 01/05/2025 Advance Directives and Living Will 01/05/2025 * Full Code (Latest Code Status on File) Date Activated Date Inactivated Comments 01/05/2025 7:59 PM 01/15/2025 2:02 PM Healthcare Agents on File Name Relationship Healthcare Agent [facility] Communication Yahaira Cabrera Relative Healthcare Decision-Maker Care Teams Emergency Veterinary Technician Relationship Specialty Start Date End Date [facility] Connection, Find-A-Doc [facility] Connection Find-a-Doc [place] [phone] PCP - General 02/02/25
--- OUTSIDE RECORDS SUMMARY | 2025-02-04 14:20 | XMS_ITS | Encounter Summary ---
Author Organization [employer] ([place], [place], [place], [place]) Address [address] [place] [address] Care Team Providers Care Bingo Floater Name Role Phone [facility] Connection, Find-A-Doc Primary Care Provider [facility] Connection, Find-A-Doc Primary Care Provider Encounter Details Date Type Department Care Team (Late st Contact Info) Description 03/04/2019 Transcribed Document [facility] Family Medicine [facility] [place] [address] ProviderMary Kate MD [address] [place] [address] [id number] Social History Tobacco Use Types Packs/Day Years Used Date Smoking Tobacco: Never Assessed Sex and Gender Information Value Date Recorded Sex Assigned at Not on file Legal Sex Male 5:22 PM CDT Gender Identity Not on file Sexual Orientation Not on file documented as of this encounter Miscellaneous Notes * Cerner Conversion Note - Mary Kate ProviderMD - 03/04/2019 8:03 AM MH TEACHER JAKUB Endo IntraOp Summary Primary Physician: RAZIA LANTIGUA MD-GAE Finalized Date/Time: 03/04/19 08:11:26 Pt. Name: [place] Viet KrishnaB./Sex: 1965 Male Med Rec #: [id number] Physician: RAZIA LANTIGUA MD-GAE Financial #: [id number] Pt. Type: O Room/Bed: N/1 Admit/Disch: 03/04/19 07:03:00 - Institution: [facility] Endo - Case Attendance Entry 1 Entry 2 Entry 3 Case Attendee RAZIA LANTIGUA MD-TAB OLIVIER, MARLENE OROZCO, RN SUPERVISOR FRUIT GRADING-ANS Role Performed Surgeon/Proceduralist, PHYSICAL FITNESS TRAINER/Nurse Customer Engagement Analyst Adult Health Clinical Nurse Specialist, First First Time In 03/04/19 07:57:00 03/04/19 07:55:00 03/04/19 07:55:00 Time Out 03/04/19 08:11:00 03/04/19 08:11:00 03/04/19 08:11:00 Procedure Esophagogastroduodenosco Esophagogastroduodenosco Esophagogastroduodenosco py, Gastric Biopsy py, Gastric Biopsy py, Gastric Biopsy Other Attendee Superficial Wound Closed By: Last Modified By: MARLENE OROZCO RN TAYLOR, KAREN J., RN MARLENE OROZCO RN 03/04/19 08:09:39 03/04/19 08:09:39 03/04/19 08:09:39 Entry 4 Case Attendee TATYANA BHATT Role Performed Scrub, First Time In 03/04/19 07:55:00 Time Out 03/04/19 08:11:00 Procedure Esophagogastroduodenosco py, Gastric Biopsy Other Attendee Superficial Wound Closed By: Last Modified By: MARLENE OROZCO RN 03/04/19 08:09:39 [facility] Endo - Case Attendance Audit 03/04/19 08:09:39 Clinic Scheduler: AIDEE Modifier: AIDEE 1 <+> Time Out 1 <*> Procedure Esophagogastroduodenoscopy, Gastric Biopsy 2 <+> Time Out 2 <*> Procedure Esophagogastroduodenoscopy, Gastric Biopsy 3 <+> Time Out 3 <*> Procedure Esophagogastroduodenoscopy, Gastric Biopsy 4 <+> Time Out 4 <*> Procedure Esophagogastroduodenoscopy, Gastric Biopsy 03/04/19 08:07:07 Clinic Scheduler: AIDEE Modifier: AIDEE 1 <*> Procedure Esophagogastroduodenoscopy 2 <*> Procedure Esophagogastroduodenoscopy 3 <*> Procedure Esophagogastroduodenoscopy 4 <*> Procedure Esophagogastroduodenoscopy 03/04/19 07:57:39 Clinic Scheduler: [email or web address] Modifier: [email or web address] 1 <*> Time In 03/04/19 07:55:00 1 [...] Endo - Case Times Audit 03/04/19 08:09:34 Clinic Scheduler: [email or web address] Modifier: [email or web address] <+> 1 Out Room Time <+> 1 Stop Time <+> 1 Stop Time 03/04/19 08:03:09 Clinic Scheduler: AIDEE Modifier: [email or web address] <+> 1 Start Time [facility] [...] Transfer to PACU Phase I Post-op Transport Stretcher/Fordrsoniya Via Patient Transport MARLENE OROZCO RN, Accompanied by TAB ROJAS APRN-ANS Last Modified By: MARLENE OORZCO RN 03/04/19 07:57:31 [facility] End[facility] - Endoscopy [...] Risk Yes Assessment Complete Fire Risk MARLENE OROZCO RN Assessment Verified By Fire Risk 03/04/19 07:58:00 Assessment Verified Date/Time Fire Risk High Risk Protocol Yes Implemented Standard Fire Yes Safety Precautions Followed Last Modified By: MARLENE OROZCO RN 03/04/19 07:58:08 [facility] Endo - General Case Nurse Practitioner Home Assessments 1 Case Information OR Endo 02 [facility] Case Level 1 Room Verified Yes Wound Class II - Clean-Contaminated Specialty SN Gastroenterology Anesthesia Type MAC ASA Class 2 Diagnosis Preop Diagnosis history of zurdo fritz tear and severe esophagitis Postop Same As Preop No Postop Diagnosis hiatal hernia and esophagitis Last Modified By: MARLENE OROZCO RN 03/04/19 08:10:07 [facility] Endo - General Case Data Audit 03/04/19 08:10:07 Clinic Scheduler: AIDEE Modifier: PARVEZJ <+> 1 Postop Diagnosis [facility] Endo - Intraoperative Assessment Entry 1 Valid History / Yes Physical in Chart Preoperative Yes Checklist Reviewed/Evaluated Allergies Reviewed Yes Patient is Latex No Sensitive Level of WDL Consciousness (WDL = Alert, Oriented to Person, Place, and Time) Present Upon ECG monitored Arrival to OR Last Modified By: MARLENE OROZCO RN 03/04/19 07:59:19 [facility] - Intraoperative Equipment Entry 1 Type Scope Equipment Intraop Monitoring Electrocardiogram Three lead placement (ECG) Electrode Placement Blood Pressure Arm, left upper Location Pulse Oximeter Hand, right Probe Site Antiembolic Devices Scopes Flexible Endoscopes Gastroscope Used Scope Serial 2500 Number/Identificatio n Number Photo/Video Documentation Photo Yes Video No Last Modified By: MARLENE OROZCO RN 03/04/19 07:59:36 [facility] Endo - Patient Positioning Entry 1 Procedure [...] Modified By: MARLENE OROZCO RN 03/04/19 08:07:08 [facility] Endo - Patient Positioning Audit 03/04/19 08:07:08 Clinic Scheduler: AIDEE Modifier: AIDEE 1 <*> Procedure Esophagogastroduodenoscopy [facility] - Sign In Entry 1 Patient, Site, Yes Procedure Identified Surgical Consent Yes Confirmed Relevant Surgical Yes Documents Available Surgical Site N/A Marked by person performing procedure Allergies No Airway Hypothermia Risk No Warming Measures No Taken Last Modified By: MARLENE OROZCO RN 03/04/19 08:00:23 [facility] - Sign Out Entry 1 [...] Modified By: MARLENE OROZCO RN 03/04/19 08:10:26 [facility] - Surgical Procedures Entry 1 Entry [...] KAREN J., RN 03/04/19 08:10:13 03/04/19 08:10:13 [facility] Endo - Surgical Procedures Audit 03/04/19 08:10:13 Clinic Scheduler: [email or web address] Modifier: ERNESTOKJ <+> 1 Stop <+> 2 Stop 03/04/19 08:07:03 Clinic Scheduler: [email or web address] Modifier: [email or web address] <+> 1 Start <+> 2 Procedure <+> 2 Primary Procedure <+> 2 Primary Surgeon <+> 2 Specialty <+> 2 Start <+> 2 Wound Class <+> 2 Anesthesia Type 03/04/19 08:00:37 Clinic Scheduler: [email or web address] Modifier: ERNESTOKJ 1 <*> Procedure Esophagogastroduodenoscopy 1 <+> Specialty [facility] Endo - Time Out [...] Modified By: MARLENE OROZCO RN 03/04/19 08:07:08 [facility] Endo - Time Out Audit 03/04/19 08:07:08 Clinic Scheduler: [email or web address] Modifier: ERNESTOKJ 1 <*> Procedure to be Performed Esophagogastroduodenoscopy Case Comments <None> Finalized By: MARLENE OROZCO RN Document Signatures Signed By: MARLENE OROZCO RN 03/04/19 08:11 Electronically signed by Chava [facility] Conversion Hat Finishing Materials Preparer Cerner at 08/08/2022 11:32 PM CDT documented in this encounter Plan of Treatment Not on file documented as of this encounter Visit Diagnoses Not on filedocumented in this encounter Care Teams Bingo Floater Relationship Specialty Start Date End Date [facility] Jackson, Find-A-Doc MARTHA [facility] [place] [address] PCP - General 01/05/25 01/05/25 [facility] Connection, Find-A-Doc [facility] [place] [address] PCP - General 02/02/25 documented as of this encounter
--- OUTSIDE RECORDS SUMMARY | 2025-02-04 14:20 | XMS_ITS | Encounter Summary ---
Author Organization [employer] ([place], [place], [place], [place]) Address [address] [place] [address] Care Team Providers Care Marble Helper Name Role Phone [facility] Connection, Find-A-Doc Primary Care Provider [facility] Connection, Find-A-Doc Primary Care Provider Encounter Details Date Type Department Care Team (Late st Contact Info) Description 01/08/2019 Transcribed Document [facility] Family Medicine [facility] [place] [address] ProviderMary Kate MD [address] [place] [phone] Social History Tobacco Use Types Packs/Day [...] on filedocumented in this encounter Care Teams Marble Helper Relationship Specialty Start Date End Date [facility] Jackson, Find-A-Doc [facility] [place] [address] PCP - General 01/05/25 01/05/25 [facility] Jackson, Find-A-Doc [facility] [place] [address] PCP - General 02/02/25 documented as of this encounter
--- OUTSIDE RECORDS SUMMARY | 2025-02-04 14:20 | XMS_ITS | Encounter Summary ---
Author Organization [employer] ([place], [place], [place], [place]) Address [address] [place] [address] Care Team Providers Care Used Car Make Ready Mechanic Name Role Phone [facility], Find-A-Doc Primary Care Provider [facility], Find-A-Doc Primary Care Provider Encounter Details Date Type Department Care Team (Late st Contact Info) Description 01/08/2019 Transcribed Document [facility] [place] Formerly [facility] [place] [address] ProviderMary Kate MD [address] [place] [address] Social History Tobacco Use Types Packs/Day Years Used Date Smoking Tobacco: Never Assessed Sex and Gender Information Value Date Recorded Sex Assigned at Not on file Legal Sex Male 5:22 PM CDT Gender Identity Not on file Sexual Orientation Not on file documented as of this encounter Miscellaneous Notes * Cerner Conversion Note - Mary Kate Cardensa MD - 01/08/2019 3:20 PM CDT [address] [address] [place] :1965 Visit Time:01/04/2019 Your Visit Summary Your Care Team Admitting Physician - ASHLEY MAGANA MD-INT Attending Physician - ASHLEY MAGANA MD-INT Primary Care Physician - JUAN MIGUEL OROZCO RN Referring Physician - PHY, SELF REFERRED Your Diagnosis Alcohol dependence with withdrawal, uncomplicated, Alcohol dependence with withdrawal, uncomplicated Alcohol withdrawal, Alcohol withdrawal These Are Your Goals I need to feel better to be out of here. Discharge Vitals Temperature 36.8 ??C Heart Rate (Monitored) 106 Respiratory Rate 18 Blood Pressure 121/81 What to do next Instructions From Your Care Team [facility] [phone] Discharge Activity: Discharge Activity: Activity as tolerated Diet: Discharge Diet: GI Soft/Low Residuel/Low Fiber Follow-Up Appointments Follow Up with JUAN MIGUEL MOLINA NP-FAM When 01/14/2019 11:00 AM EDT Comments Appointment has been made Where: [address] [place] [address]. [place] [address]- x8 Medications What How Much When Instructions Next Dose levETIRAcetam (Keppra 500 mg oral tablet) 1 Tablet(s) Oral Two Times A Day Printed Prescription [facility] 01/08/2019 pantoprazole (pantoprazole 40 mg oral granule, enteric coated) 1 Each Oral Two Times A Day Duration: 30 Day(s) Printed Prescription [facility] 01/08/2019 thiamine (thiamine 100 mg oral [...] oral tablet) 1 Tablet(s) Oral At Bedtime [facility] 01/08/2019 venlafaxine (venlafaxine 37.5 mg oral tablet) 1 Tablet(s) Oral Two Times A Day [facility] 01/08/2019 Pharmacy Information [facility]/pharmacy #[id number]: [address] [place], [place] [id number] [phone] Take your medications faithfully. Do NOT skip [...] foods? Grains Pasta. Quick breads. Muffins. Pancakes. Pxtaw-cu-wqk cereal. Vegetables Vegetables cooked in oil or [...] foods in my diet? Add whole milk, ogde-ulh-zvyb, or heavy cream to cereal, pudding, soup, [...] 04/08/2006 Document Revised: 09/13/2016 Document Reviewed: 09/21/2014 [employer] Interactive Patient Education ?? [address] Recovering From Addiction Addiction is a complex [...] be able to find financial assistance through luv-ezq-mtjvby organizations or with local government-based resources. If you are taking medicines, you may be able to get the generic form, which may be less expensive than brand-name medicine. Some makers of prescription medicines also offer help to patients who cannot afford the medicines that they need. Follow these instructions at home: ??? Take flqc-luw-fhraxwd and prescription medicines only as told by [...] 08/23/2017 Document Revised: 08/23/2017 Document Reviewed: 08/23/2017 [employer] Interactive Patient Education ?? [address] Alcohol Use Disorder Alcohol use disorder is [...] Follow these instructions at home: ??? Take zmcc-iol-nyxozcs and prescription medicines only as told by [...] 05/16/2005 Document Revised: 01/03/2017 Document Reviewed: 01/03/2017 [employer] Interactive Patient Education ?? 2019 [employer] Alcohol Withdrawal Syndrome Alcohol withdrawal syndrome [...] Follow these instructions at home: ??? Take yzkc-vtk-muusfyi and prescription medicines (including vitamin supplements) only [...] 01/16/2006 Document Revised: 12/13/2017 Document Reviewed: 12/13/2017 [employer] Interactive Patient Education ?? 2019 [employer] Alcohol Abuse and Nutrition Alcohol abuse [...] Your health care provider or diet and thoracic medicine specialist (dietitian) will work with you to [...] 01/31/2006 Document Revised: 12/24/2017 Document Reviewed: 12/24/2017 [employer] Interactive Patient Education ?? [address] thiamine (vitamin B1) (THIGH a min) Vitamin [...] Reference Intake' (formerly 'Recommended Daily Allowances' or ELECTROCARDIOGRAPH REPAIRER) listings for more information. Thiamine is only [...] may report side effects to FDA at 6-987-VCH-5879. What other drugs will affect thiamine? There may be other drugs that can interact with thiamine. Tell your doctor about all medications you use. This includes prescription, qidi-knj-gwzvjbk, vitamin, and herbal products. Do not start [...] to ensure that the information provided by [employer] ('[employer]') is accurate, up-to-date, and complete, but no guarantee is made to that effect. Drug information contained herein may be time sensitive. [employer] information has been compiled for use by healthcare practitioners and consumers in the [place] and therefore [employer] does not warrant that uses outside of the [place] are appropriate, unless specifically indicated otherwise. [employer] drug information does not endorse drugs, diagnose patients or recommend therapy. [employer] drug information is an informational resource designed [...] effective or appropriate for any given patient. [employer] does not assume any responsibility for any aspect of healthcare administered with the aid of information [facility] provides. The information contained herein is not intended to cover all possible uses, directions, precautions, warnings, drug interactions, allergic reactions, or adverse effects. If you have questions about the drugs you are taking, check with your doctor, nurse or pharmacist. Copyright 5990-2254 [employer] Version: 3.02. Revision Date: 03/24/2013. folic acid [...] may report side effects to FDA at 7-881-PJT-2128. What other drugs will affect folic acid? [...] your doctor about all your prescription and cmna-tjw-znkfnew medications, vitamins, minerals, herbal products, and drugs [...] to ensure that the information provided by [employer] ('[employer]') is accurate, up-to-date, and complete, but no guarantee is made to that effect. Drug information contained herein may be time sensitive. [employer] information has been compiled for use by healthcare practitioners and consumers in the [place] and therefore [employer] does not warrant that uses outside of the [place] are appropriate, unless specifically indicated otherwise. [employer]'s drug information does not endorse drugs, diagnose patients or recommend therapy. [employer] drug information is an informational resource designed [...] effective or appropriate for any given patient. [employer] does not assume any responsibility for any aspect of healthcare administered with the aid of information [employer] provides. The information contained herein is not intended to cover all possible uses, directions, precautions, warnings, drug interactions, allergic reactions, or adverse effects. If you have questions about the drugs you are taking, check with your doctor, nurse or pharmacist. Copyright 5618-2282 [employer] Version: 5.02. Revision Date: 04/05/2010. multivitamins (MUL [...] may report side effects to FDA at 2-409-FRD-5676. What other drugs will affect multivitamins? Multivitamins [...] drugs may affect multivitamins, including prescription and onvg-iba-csbppxw medicines, vitamins, and herbal products. Not all [...] on filedocumented in this encounter Care Teams Used Car Make Ready Mechanic Relationship Specialty Start Date End Date [facility] [place], [facility]Doc [facility] [place] [address] PCP - General 01/05/25 01/05/25 [facility] [place], [facility] [place] [address] PCP - General 02/02/25 documented as of this encounter
--- OUTSIDE RECORDS SUMMARY | 2025-02-04 14:20 | XMS_ITS | Encounter Summary ---
Author Organization [employer] ([place], [place], [place], [place]) Address [address] [place] [address] Care Team Providers Care Director Employee Communications Name Role Phone [facility], Find-A-Doc Primary Care Provider [facility], Find-A-Doc Primary Care Provider Encounter Details Date Type Department Care Team (Late st Contact Info) Description 01/08/2019 Transcribed Document [facility] [address] [place] [address] ProviderMary Kate MD [address] [place], [place] [address] Social History Tobacco Use Types Packs/Day Years [...] foods? Grains Pasta. Quick breads. Muffins. Pancakes. Zrodq-pj-zvz cereal. Vegetables Vegetables cooked in oil or [...] foods in my diet? Add whole milk, qhgo-nwt-kmqy, or heavy cream to cereal, pudding, soup, [...] 04/08/2006 Document Revised: 09/13/2016 Document Reviewed: 09/21/2014 [employer] Interactive Patient Education ? 2018 [employer] Mental and Behavioral Health Recovering From [...] be able to find financial assistance through vaf-xpl-timxrl organizations or with local government-based resources. If you are taking medicines, you may be able to get the generic form, which may be less expensive than brand-name medicine. Some makers of prescription medicines also offer help to patients who cannot afford the medicines that they need. Follow these instructions at home: ??? Take pcyh-upm-qkuubqe and prescription medicines only as told by [...] 08/23/2017 Document Revised: 08/23/2017 Document Reviewed: 08/23/2017 [employer] Interactive Patient Education ? 2019 [employer] Alcohol Use Disorder Alcohol use disorder [...] Follow these instructions at home: ??? Take vgfh-wep-qysvnoe and prescription medicines only as told by [...] 05/16/2005 Document Revised: 01/03/2017 Document Reviewed: 01/03/2017 [employer] Interactive Patient Education ? 2019 [employer] Alcohol Withdrawal Syndrome Alcohol withdrawal syndrome [...] Follow these instructions at home: ??? Take rtba-njn-slifgyc and prescription medicines (including vitamin supplements) only [...] 01/16/2006 Document Revised: 12/13/2017 Document Reviewed: 12/13/2017 [employer] Interactive Patient Education ? 2019 [employer] Alcohol Abuse and Nutrition Alcohol abuse [...] Your health care provider or diet and food and nutrition professor (dietitian) will work with you to design [...] 01/31/2006 Document Revised: 12/24/2017 Document Reviewed: 12/24/2017 [employer] Interactive Patient Education ? 2019 [employer]. documented in this encounter Plan of Treatment Not on file documented as of this encounter Visit Diagnoses Not on filedocumented in this encounter Care Teams Director Employee Communications Relationship Specialty Start Date End Date eleazar Paz Find-A-Doc [facility] [place] [address] PCP - General 01/05/25 01/05/25 [facility] [place], Find[facility]Doc [facility] [place] [address] PCP - General 02/02/25 documented as of this encounter
--- OUTSIDE RECORDS SUMMARY | 2025-02-04 14:20 | XMS_ITS | Encounter Summary ---
Author Organization [employer] ([place], [place], [place], [place]) Address [address] [place] [address] Care Team Providers Care Retail Pharmacist Name Role Phone [facility], Find-A-Doc Primary Care Provider [facility], Find-A-Doc Primary Care Provider Encounter Details Date Type Department Care Team (Late st Contact Info) Description 01/08/2019 Transcribed Document [facility] [place] Family Medicine formerly [facility] [place] [address] ProviderMary Kate MD [address] [place] [phone] Social History Tobacco Use Types Packs/Day Years Used Date Smoking Tobacco: Never Assessed Sex and Gender Information Value Date Recorded Sex Assigned at Not on file Legal Sex Male 5:22 PM CDT Gender Identity Not on file Sexual Orientation Not on file documented as of this encounter Miscellaneous Notes * Cerner Conversion Note - Mary Kate ProviderMD - 01/08/2019 11:02 AM CDT Patient: PROSPER MILLS Age: 53 years Sex: Male : [...] changes and he verbalized understanding of this. Electronically signed by Tobi Larsen Conversion Weapons Electrical Engineering Officer Cerner at 08/08/2022 11:19 PM CDT documented in this encounter Plan of Treatment Not on file documented as of this encounter Visit Diagnoses Not on filedocumented in this encounter Care Teams Retail Pharmacist Relationship Specialty Start Date End Date [facility] [place], Find[facility]A-Doc [facility] [place] [address] PCP - General 01/05/25 01/05/25 [facility] [place], Find[facility]Doc [facility] [place] [address] PCP - General 02/02/25 documented as of this encounter
--- OUTSIDE RECORDS SUMMARY | 2025-02-04 14:20 | XMS_ITS | Encounter Summary ---
Author Organization [employer] ([place], [place], [place], [place]) Address [address] [place] [address] Care Team Providers Care Ebd Teacher Name Role Phone [facility], Find-A-Doc Primary Care Provider [facility], Find-A-Doc Primary Care Provider Encounter Details Date Type Department Care Team (Late st Contact Info) Description 03/04/2019 Transcribed Document [facility] [place] [facility] [place] [address] ProviderMary Kate MD [address] [place] [address] Social History Tobacco Use Types Packs/Day Years Used Date Smoking Tobacco: Never Assessed Sex and Gender Information Value Date Recorded Sex Assigned at Not on file Legal Sex Male 5:22 PM CDT Gender Identity Not on file Sexual Orientation Not on file documented as of this encounter Miscellaneous Notes * Cerner Conversion Note - Mary Kate Cardenas MD - 03/04/2019 7:23 AM VOCAL TEACHER Patient: PROSPER MILLS Age: 53 years Sex: Male : 1965 Associated Diagnoses: None Author: STEFFANY HUBBARD MD-GAE Basic Information Source of history: Self. Referral source: JUAN MIGUEL MOLINA, BLEACH BOILER PULLER-FAM. Chief Complaint History of Susana Ruiz tear, [...] History: Active GERD - Gastro-esophageal reflux disease (8664707616) Alcohol abuse (89223997) Depression (372866824) Hiatal hernia (586846841) Hyperlipidemia (07508232) HTN - Hypertension (2486255865) Procedure history: egd. Social History Social & Psychosocial Habits Alcohol 03/04/2019 Alcohol Use History, Social Habits Yes Number of Drinks per Day 5 Date/Time of Last Drink 01/30/19- vodka. Alcohol Use in Last Twelve Months Yes Alcohol Use Frequency Daily Alcohol Use Comment pt states he drinks 4-5 glasses of vodka per day Nutrition/Health 03/04/2019 Caffeine intake amount: 3 16oz GnamGnam de Substance Abuse 03/04/2019 Recreational Drug Use History [...] All Problems Acid reflux / SNOMED CT 726382440 / Confirmed Alcohol abuse / SNOMED CT 19406936 / Confirmed Alcoholism / SNOMED CT 78638631 / Confirmed Depression / SNOMED CT 28049566 / Confirmed Depression / SNOMED CT 317990334 / Confirmed GERD - Gastro-esophageal reflux disease / SNOMED CT 5635289112 / Confirmed Hiatal hernia / SNOMED CT 500188756 / Confirmed Hiatal hernia / SNOMED CT 248640318 / Confirmed History of obstructive sleep apnea / IMO 85947694 / Confirmed HTN - Hypertension / SNOMED CT 7877030651 / Confirmed Hyperlipidemia / SNOMED CT 71294021 / Confirmed Hyperlipidemia / SNOMED CT 91643110 / Confirmed Hypertension / SNOMED CT 9693675117 / Confirmed Seizures / SNOMED CT 007249361 / Confirmed Canceled: No Chronic Problems / [...] Last Charted Minimum Maximum Temp 98.6 (MAR 04:) 98.6 (MAR 04:) 98.6 (MAR 04:) Mon HR 70 (MAR [...] No deformity, Normal gait. Integumentary: Warm, Dry, [place], No rash. Integumentary exam: Face, Chest, Arm, [...] Hubbard. Electronically signed by Jaron Larsen Conversion Profiling Machine Set Up Operator Cerner at 08/08/2022 11:26 PM CDT documented in this encounter Plan of Treatment Not on file documented as of this encounter Visit Diagnoses Not on filedocumented in this encounter Care Teams Ebd Teacher Relationship Specialty Start Date End Date [facility] [place] Find[facility]Doc [facility] [place] [address] PCP - General 01/05/25 01/05/25 [facility] [place] [address] PCP - General 02/02/25 documented as of this encounter
--- OUTSIDE RECORDS SUMMARY | 2025-02-04 14:20 | XMS_ITS | Encounter Summary ---
Author Organization [employer] ([place], [place], [place], [place]) Address [address] [place] [address] Care Team Providers Care Regenerator Operator Name Role Phone [facility], Find-A-Doc Primary Care Provider [facility], Find-A-Doc Primary Care Provider Encounter Details Date Type Department Care Team (Late st Contact Info) Description 03/04/2019 Transcribed Document [facility] [place] [facility] [address] ProviderMary Kate MD [address] [place] [phone] Social History Tobacco Use Types Packs/Day Years Used Date Smoking Tobacco: Never Assessed Sex and Gender Information Value Date Recorded Sex Assigned at Not on file Legal Sex Male 5:22 PM CDT Gender Identity Not on file Sexual Orientation Not on file documented as of this encounter Miscellaneous Notes * [employer]ner Conversion Note - Mary Kate ProviderMD - 03/04/2019 8:03 AM STAMP COLLECTOR JAKUB Endo PACU Summary Primary Physician: RAZIA LANTIGUA MD-GAE Finalized Date/Time: 03/04/19 08:46:43 Pt. Name: [place] Viet KrishnaB./Sex: 1965 Male Med Rec #: [id number] Physician: RAZIA LANTIGUA MD-GAE Financial #: [id number] Pt. Type: O Room/Bed: N/1 Admit/Disch: 03/04/19 07:03:00 - Institution: [facility] Endo PACU Case Times Entry 1 In PACU I 03/04/19 08:15:00 Ready for PACU 03/04/19 08:46:00 Discharge Discharge from PACU 03/04/19 08:46:00 I SJE Endo PACU Case Times Audit 03/04/19 08:46:41 Clipper Operator: [id number] Modifier: [id number] <+> 1 Ready for PACU Discharge <+> 1 Discharge from PACU I Finalized By: Amee Valladares, Rn Document Signatures Signed By: Amee Valladares Rn 03/04/19 08:46 Electronically signed by Chava [facility] Conversion Pharmacy Technician Trainee Cerner at 08/08/2022 11:19 PM CDT documented in this encounter Plan of Treatment Not on file documented as of this encounter Visit Diagnoses Not on filedocumented in this encounter Care Teams Regenerator Operator Relationship Specialty Start Date End Date [facility], Find[facility]A-Doc [facility] [place] [address] PCP - General 01/05/25 01/05/25 [facility], Find[facility]Doc [facility] [place] [address] PCP - General 02/02/25 documented as of this encounter
--- OUTSIDE RECORDS SUMMARY | 2025-02-04 14:20 | XMS_ITS | Encounter Summary ---
Author Organization [employer] ([place], [place], [place], [place]) Address [address] [place] [address] Care Team Providers Care Orchid Superintendent Name Role Phone [facility], Find-A-Doc Primary Care Provider [facility], Find-A-Doc Primary Care Provider Encounter Details Date Type Department Care Team (Late st Contact Info) Description 01/08/2019 Transcribed Document [facility] [place] [facility] [place] [address] ProviderMary Kate MD [address] [place] [address] Social History Tobacco Use Types Packs/Day Years Used Date Smoking Tobacco: Never Assessed Sex and Gender Information Value Date Recorded Sex Assigned at Not on file Legal Sex Male 5:22 PM CDT Gender Identity Not on file Sexual Orientation Not on file documented as of this encounter Miscellaneous Notes * [employer]ner Conversion Note - Mary Kate ProviderMD - 01/08/2019 2:00 AM CDT [place] [employer] Group Leader Details Entered On: 01/08/2019 3:45 EDT Performed On: 01/08/2019 2:00 EDT by GIOVANNI NATARAJAN RN Order Details Transport Mode Order Detail : Bed (including specialty) Isolation Precautions Order Detail : Standard Precautions Order Detail : N/A IV Order Detail : 1 Oxygen Order Detail : 1 Nurse Collect Order Detail : 0 Lift/Transfer : Minimal Central Line Order Detail : No Room Service : Needs Assistance Arterial Line : No GIOVANNI NATARAJAN RN - 01/08/2019 3:45 EDT Electronically signed by Tobi Laresn Conversion Space Systems Operations Superintendent Cerner at 08/08/2022 11:27 PM CDT documented in this encounter Plan of Treatment Not on file documented as of this encounter Visit Diagnoses Not on filedocumented in this encounter Care Teams Orchid Superintendent Relationship Specialty Start Date End Date [facility] [place], Find-A-Doc [facility] Find-a-Doc [place], [place] [id number] PCP - General 01/05/25 01/05/25 [facility] [place] Find-A-Doc [facility] [place] [address] PCP - General 02/02/25 documented as of this encounter
--- OUTSIDE RECORDS SUMMARY | 2025-02-04 14:20 | XMS_ITS | Encounter Summary ---
Author Organization [employer] ([place], [place], [place], [place]) Address [address] [place] [address] Care Team Providers Care Machine Joiner Cementer Name Role Phone [facility], Find-A-Doc Primary Care Provider [facility], Find-A-Doc Primary Care Provider Encounter Details Date Type Department Care Team (Late st Contact Info) Description 03/04/2019 Transcribed Document [facility] [place] [address] [place] [address] ProviderMary Kate MD [address] [place] [id number] Social History Tobacco Use Types Packs/Day Years Used Date Smoking Tobacco: Never Assessed Sex and Gender Information Value Date Recorded Sex Assigned at Not on file Legal Sex Male 5:22 PM CDT Gender Identity Not on file Sexual Orientation Not on file documented as of this encounter Miscellaneous Notes * [employer] Conversion Note - Historical ProviderMD - 03/04/2019 7:22 AM AIRPORT MANAGER Pre Procedure Adult Entered On: 03/04/2019 7:23 EST Performed On: 03/04/2019 7:22 EST by Amee Valladares Rn Height and Weight, Clinical Dosing Height Source : Stated Height Entry Format : [place] Height, Feet : 5 ft(Converted to: 152 cm, 60 Inch) Height, Inches : 6 Inch(Converted to: 0 ft 6 Inch, 15.24 cm) Clinical Height : 167.64 cm Weight Source : Standing scale Weight Entry Format : [place] Clinical Dosing Weight : 72 kg Weight, Pounds : 158.4 lb Body Surface Area (BSA) : 1.81 m2 Body Mass Index : 25.6 kg/m2 (HI) [place] Body Weight : 63 kg Amee Valladares [...] Amee Valladares Rn - 03/04/2019 7:24 EST [place] Suicide Severity Rating Scale (C-SSRS) CSSRS Past [...] Name/Contact Info Fam/Rep Notified Adm : Jenae Braden Name/Contact Info Physician Notified Adm : damon Emergency Contact #1 : Axel Douglas Emergency Contact #1 Phone Number : Emergency Contact #1 Relationship : [phone] Emergency Contact #2 : na Emergency Contact #2 Phone Number : na Emergency Contact #2 Relationship : damon Primary Language : Monegasque Communication Barrier : None Amee Valladares Rn [...] Scale Risk Level : 0-24 Low Risk Drew Fall Interventions : Adequate lighting, Assistive devices [...] on filedocumented in this encounter Care Teams Machine Joiner Cementer Relationship Specialty Start Date End Date [facility] [place] Find-A-Doc [facility] [place] [address] PCP - General 01/05/25 01/05/25 [facility] [place], Find-A-Doc [facility] [place] [address] PCP - General 02/02/25 documented as of this encounter
--- OUTSIDE RECORDS SUMMARY | 2025-02-04 14:20 | XMS_ITS | Encounter Summary ---
Author Organization [employer] ([place], [place], [place], [place]) Address [address] [place] [address] Care Team Providers Care Director Of Casework Name Role Phone [facility] Connection, Find-A-Doc Primary Care Provider [facility], Find-A-Doc Primary Care Provider Encounter Details Date Type Department Care Team (Late st Contact Info) Description 03/04/2019 Transcribed Document [facility] [place] [address] Mary Kate Cardenas MD [address] [place] [address] [phone] Social History Tobacco Use Types Packs/Day Years Used Date Smoking Tobacco: Never Assessed Sex and Gender Information Value Date Recorded Sex Assigned at Not on file Legal Sex Male 5:22 PM CDT Gender Identity Not on file Sexual Orientation Not on file documented as of this encounter Miscellaneous Notes * [employer]ner Conversion Note - aMry Kate Cardenas MD - 03/04/2019 8:29 AM PROGRAM ADMIN Patient Education Materials Follows: Hiatal Hernia A [...] symptoms. ??? Medicines. These may include: ? Wjab-loy-vybjoif antacids. ? Medicines that make your stomach [...] ? Fatty foods, like fried foods. ? [place] fruits, like oranges or lemon. ? Other [...] not drink alcohol. General instructions ??? Take qonn-oky-jtzxkkc and prescription medicines only as told by [...] 06/28/2004 Document Revised: 11/11/2017 Document Reviewed: 11/11/2017 [employer] Interactive Patient Education ? 2019 [employer] Esophagitis Esophagitis is inflammation of the [...] vinegar, hot sauces, and barbecue sauce. ? [place] fruit juices and citrus fruits, such as oranges, boogie, and limes. ? Tomato-based foods, such as red sauce, chili, salsa, and pizza with red sauce. ? Fried and fatty foods, such as donuts, amharic fries, potato chips, and high-fat dressings. ? [...] any changes in your symptoms. ??? Take xpbl-yhr-tmxhnww and prescription medicines only as told by [...] 05/16/2005 Document Revised: 09/13/2016 Document Reviewed: 08/03/2015 [employer] Patient Education ? 2019 [employer] Monitored Anesthesia Care, Care After These [...] eating solid foods. General instructions ??? Take bcpf-vjl-oycbkzd and prescription medicines only as told by [...] 07/29/2016 Document Revised: 11/22/2017 Document Reviewed: 07/29/2016 [employer] Patient Education ? 2019 [employer] Esophagogastroduodenoscopy, Care After Refer to this [...] 03/25/2013 Document Revised: 09/13/2016 Document Reviewed: 03/01/2016 [employer] Patient Education ? 2019 [employer] Electronically signed by Chava [facility] Conversion Canine Service Instructor Trainer Cerner at 08/08/2022 11:25 PM CDT documented in this encounter Plan of Treatment Not on file documented as of this encounter Visit Diagnoses Not on filedocumented in this encounter Care Teams Director Of Casework Relationship Specialty Start Date End Date [facility] [place], Find-A-Doc [facility] [place] [address] PCP - General 01/05/25 01/05/25 [facility] [place], Find-A-Doc [facility] [place] [address] PCP - General 02/02/25 documented as of this encounter
--- OUTSIDE RECORDS SUMMARY | 2025-02-04 14:20 | XMS_ITS | Encounter Summary ---
Author Organization [employer] ([place], [place], [place], [place]) Address [address] [place] [address] Care Team Providers Care Pre Sales Technical Engineer Name Role Phone [facility] Connection, Find-A-Doc Primary Care Provider [facility], Find-A-Doc Primary Care Provider Encounter Details Date Type Department Care Team (Late st Contact Info) Description 01/14/2019 Transcribed Document [facility] [place] [facility] [place] [address] ProviderMary Kate MD [address] [place] [address] [phone] Social History Tobacco Use Types Packs/Day Years [...] on filedocumented in this encounter Care Teams Pre Sales Technical Engineer Relationship Specialty Start Date End Date [facility] [place], Find-A-Doc [facility] [place] [address] PCP - General 01/05/25 01/05/25 [facility] [place], Find-A-Doc [facility] [place] [address] PCP - General 02/02/25 documented as of this encounter
--- OUTSIDE RECORDS SUMMARY | 2025-02-04 14:20 | XMS_ITS | Clinical Summary ---
Author Organization [employer] ([place], [place], [place], [place]) Address [address] [place] [address] Care Team Providers Care Director Call Name Role Phone [facility], [facility]-A-Doc Primary Care Provider Allergies No known active allergies Medications ferrous [...] for 30 days. 30 tablet 01/17/20 25 025 Active folic acid (FOLVITE) 1 MG tablet Take 1 tablet (1 mg total) by mouth daily for 30 days. 30 tablet 01/17/20 25 025 Active metoprolol tartrate (LOPRESSOR) 50 MG tablet Take 1 tablet (50 mg total) by mouth 2 (two) times daily for 30 days. 60 tablet 01/16/20 25 025 Active pantoprazole (PROTONIX) 40 MG tablet Take 1 tablet (40 mg total) by mouth daily for 30 days. 30 tablet 01/17/20 25 025 Active thiamine 100 MG tablet Take 2 tablets (200 mg total) by mouth daily for 30 days. 60 tablet 01/17/20 25 025 Active simvastatin (ZOCOR) 20 MG tablet Take [...] Date Diagnosed Date SDH (subdural hematoma) 01/05/2025 Encounters Date Type Department Care Team Description 02/02/2025 5:15 PM EDT - 02/03/2025 4:49 AM EDT Emergency [facility] Emergency Department 1 [place] [address] Lele Mansfield MD Gilbert, Cody, DO Fall, initial encounter (Primary Dx); Alcoholic intoxication without complication (HCC); Lactic acidosis Discharge Disposition: Home or Self Care 02/02/2025 Travel 01/05/2025 6:07 PM EDT - 01/15/2025 12:30 PM EDT Hospital Encounter [facility] 5A Neuro Telemetry Unit 1 [place] [address] Chris Zamudio MD Tovar, Jesus V, MD Khan, Imran, MD Macarthy, Toks E, MD Farooqui, Jamil, MD Cerebellar stroke (HCC) (Primary Dx); Subdural hematoma (HCC); Thrombocytopenia (HCC); Conjunctivitis of left eye, unspecified conjunctivitis type Discharge Disposition: Rehab Facility 01/05/2025 Travel from Last 3 Months Social History Tobacco Use Types Packs/Day Years [...] Do you speak a language other than Bengali at [place]? No 01/06/2025 Do you want help with [...] 02/02/2025 5:26 PM EDT Plan of Treatment Health Maintenance Due Date Last Done Comments CT Colonography 1965 Colonoscopy 1965 Colorectal Cancer Screening 1965 FOBT/FIT 1965 Fit-DNA (Cologuard) 1965 Sigmoidoscopy 1965 Depression Screening (12+) 1977 HIV Screening 1980 Hepatitis C Screening 1983 DTAP/TDAP/TD VACCINES (1 - Tdap) 1984 Pneumococcal 50+ years (1 of 2 - PCV) 1984 Shingles Vaccine (Zoster) (1 of 2) 2015 Medicare IPPE ([place]) G0402 08/20/2024 COVID-19 VACCINE ( season) 2024 04/05/2021, 08/26/2020, 07/26/2020 Influenza Vaccine (#1) 2024 01/30/2019 Tobacco Cessation Counseling and Screening (12+) 02/02/2026 02/02/2025 Lipid Panel 02/20/2029 02/21/2024 Procedures Procedure Name Priority Date/Time Associated Diagnosis [...] PHOSPHORUS Add-On 01/07/2025 3:03 AM EDT [facility] CBC SCAN Routine 01/07/2025 3:03 AM EDT CBC HEMOGRAM (-BKR) STAT 01/07/2025 3:03 AM EDT COMPREHENSIVE METABOLIC [...] STAT 01/05/2025 6:51 PM EDT ABO/RH CONFIRMATION/RETYPE ([place] BKR) STAT 01/05/2025 6:32 PM EDT MAGNESIUM Add-On 01/05/2025 6:32 PM EDT [facility] CBC SCAN Routine 01/05/2025 6:32 PM EDT [...] - 2.2 mmol/L 02/03/2025 1:29 AM EDT [facility] Blood Venipuncture / Unknown 02/03/2025 1:08 AM EDT 02/03/2025 1:11 AM EDT Narrative [facility] - 02/03/2025 1:29 AM EDT Specimen moderately hemolyzed us Ciarra Aguilar [employer]LLISION WORK[employer] LAB BLOOD ORDERABLES Final Re sult [facility] 1 [place], [place] [address] [phone] * (ABNORMAL) Lactic Acid with reflex (SJ) (02/02/2025 10:32 PM EDT) Only the most recent of3 resultswithin the time period is included. Lactic Acid Level (mmol/L) 4.3(HH) 0.5 - 2.2 mmol/L 02/02/2025 11:06 PM EDT [facility] Blood Venipuncture / Unknown 02/02/2025 10:32 PM EDT 02/02/2025 10:37 PM EDT [facility] Final Re sult Performing Organization Address [facility] de Phone Number [facility] [address] [phone] * Creatine Kinase (CK) (02/02/2025 7:24 PM EDT) Only the most recent of2 resultswithin the time period is included. Total CK 117 30 - 200 U/L 02/02/2025 9:17 PM EDT [facility] Blood Venipuncture / Unknown 02/02/2025 7:24 PM EDT 02/02/2025 7:28 PM EDT [facility] LAB BLOOD ORDERABLES Final Re sult Performing Organization Address City/[facility] Co de Phone Number [facility] [address] [phone] * (ABNORMAL) Ethanol (02/02/2025 7:24 PM EDT) Only the most recent of2 resultswithin the time period is included. Ethanol Lvl 388(H) <=10 mg/dL 02/02/2025 8:14 PM EDT [facility] Blood Venipuncture / Unknown 02/02/2025 7:24 PM EDT 02/02/2025 7:28 PM EDT Narrative [facility] - 02/02/2025 8:14 PM EDT Lower limit of detection is 10.00 mg/dL. 50-100 mg/dL
Impaired Reflexes: 100-300 mg/dL
Depression of LOCKER ROOM CLERK: 300 mg/dL or >
Coma may occur; 400 mg/dL or >
may occur

This test is not intended for legal purposes or use in employment related testing. us Lele Mansfield MD LAB BLOOD ORDERABLES Final Resu lt [facility] [address] [place] [address], [facility] [phone] * (ABNORMAL) Comprehensive metabolic panel (02/02/2025 7:24 PM EDT) Only the most recent of8 resultswithin the time period is included. Sodium 135(L) 136 - 145 meq/L 02/02/2025 8:14 PM EDT [facility] Potassium 4.3 3.4 - 5.1 meq/L 02/02/2025 8:14 PM EDT [facility] Chloride 94(L) 98 - 112 meq/L 02/02/2025 8:14 PM EDT [facility] CO2 19(L) 22 - 29 meq/L 02/02/2025 8:14 PM EDT [facility] Calcium 8.6 8.4 - 10.2 mg/dL 02/02/2025 8:14 PM EDT [facility] Glucose 76 74 - 100 mg/dL 02/02/2025 8:14 PM EDT [facility] BUN 7.8(L) 8.4 - 25.7 mg/dL 02/02/2025 8:14 PM EDT [facility] Creatinine 0.74 0.60 - 1.30 mg/dL 02/02/2025 8:14 PM EDT [facility] BUN/Creatinine 11 8 - 20 02/02/2025 8:14 PM EDT [facility] eGFR (mL/min/1.73m2) 104 >=60 mL/min/1.7 3m2 02/02/2025 8:14 PM EDT [facility] Comment:ESTIMATED GFR IS NOT ACCURATE CREATININE CLEARANCE IN PREDICTING GLOMERULAR FILTRATION RATE. ESTIMATED GFR IS NOT APPLICABLE FOR DIALYSIS PATIENTS. Albumin 3.5 3.5 - 5.0 g/dL 02/02/2025 8:14 PM EDT [facility] Alkaline Phosphatase 65 40 - 150 U/L 02/02/2025 8:14 PM EDT [facility] ALT 23 <55 U/L 02/02/2025 8:14 PM EDT [facility] AST 33 5 - 34 U/L 02/02/2025 8:14 PM EDT [facility] Total Bilirubin 0.3 0.3 - 1.2 mg/dL 02/02/2025 8:14 PM EDT [facility] Protein, Total 7.6 6.4 - 8.3 g/dL 02/02/2025 8:14 PM EDT [facility] Globulin 4.1 2.5 - 4.1 g/dL 02/02/2025 8:14 PM EDT [facility] Anion Gap 26(H) 4 - 12 02/02/2025 8:14 PM EDT [facility] A/G Ratio 0.9 0.7 - 1.9 02/02/2025 8:14 PM EDT [facility] Osmolality Calc 267.1 mOsm/kg 8:14 PM EDT [facility] Blood Venipuncture / Unknown 02/02/2025 7:24 PM EDT 02/02/2025 7:28 PM EDT us Lele Mansfield MD LAB BLOOD ORDERABLES Final Resu lt [facility] 1 [place] [address], [facility] [phone] * CT cervical spine without contrast (02/02/2025 [...] dictated by Beata Mcdermott M.D. Ciarra Aguilar COLLISION WORKER IMG CT ORDERABLES Final Resul t * PST Top Extra Tubes (02/02/2025 5:33 PM EDT) HOLD SPECIMEN (SJ - BKR) Hold for add-ons. 02/02/2025 7:00 PM EDT [facility] Comment:Auto resulted. Blood (Blood, Veinous) Venipuncture / Unknown 02/02/2025 5:33 PM EDT 02/02/2025 5:43 PM EDT us Lele Mansfield MD LAB BLOOD ORDERABLES Final Resu lt Performing Organization Address [facility]/ZIP Co de Phone Number [facility] [address] [phone] * Brown Top Extra Tubes (02/02/2025 5:33 PM EDT) HOLD SPECIMEN (SJ - BKR) Hold for add-ons. 02/02/2025 7:00 PM EDT [facility] Comment:Auto resulted. Blood (Blood, Veinous) Venipuncture / Unknown 02/02/2025 5:33 PM EDT 02/02/2025 5:44 PM EDT us Lele Mansfield MD LAB BLOOD ORDERABLES Final Resu lt Performing Organization Address City/[facility]/ZIP Co de Phone Number [facility] [address] [phone] * Blue Top Extra Tubes (02/02/2025 5:33 PM EDT) HOLD SPECIMEN (SJ - BKR) Hold for add-ons. 02/02/2025 7:00 PM EDT [facility] Comment:Auto resulted. Blood (Blood, Veinous) Venipuncture / Unknown 02/02/2025 5:33 PM EDT 02/02/2025 5:44 PM EDT us Lele Mansfield MD LAB BLOOD ORDERABLES Final Resu lt [facility] [address] [phone] * (ABNORMAL) CBC with Auto Diff (02/02/2025 5:33 PM EDT) Only the most recent of6 resultswithin the time period is included. WBC 5.2 4.2 - 9.1 K/ L 02/02/2025 6:11 PM EDT [facility] RBC 4.05(L) 4.63 - 6.08 M/ L 02/02/2025 6:11 PM EDT [facility] Hemoglobin 13.6(L) 13.7 - 17.5 GM/DL 02/02/2025 6:11 PM EDT [facility] Hematocrit 40.1 40.1 - 51.0 % 02/02/2025 6:11 PM EDT [facility] MCV 99(H) 79 - 92 fL 02/02/2025 6:11 PM EDT [facility] MCH 33.6(H) 25.7 - 32.2 pg 02/02/2025 6:11 PM EDT [facility] MCHC 33.9 32.3 - 36.5 GM/DL 02/02/2025 6:11 PM EDT [facility] RDW 13.6 11.6 - 14.4 % 02/02/2025 6:11 PM EDT [facility] Platelets 279 140 - 375 K/CU MM 02/02/2025 6:11 PM EDT [facility] MPV 9.4 9.4 - 12.4 fL 02/02/2025 6:11 PM EDT [facility] % Neutros 55 34 - 68 % 02/02/2025 6:11 PM EDT [facility] % Lymphs 34 22 - 53 % 02/02/2025 6:11 PM EDT [facility] % Monos 6 5 - 12 % 02/02/2025 6:11 PM EDT [facility] % Eos 4.0 1.0 - 7.0 % 02/02/2025 6:11 PM EDT [facility] % Baso 1 0 - 1 % 02/02/2025 6:11 PM EDT [facility] NRBC Absolute <0.01 0 - 0.012 K/ul 02/02/2025 6:11 PM EDT [facility] # Neutros 2.86 1.78 - 5.38 K/ L 02/02/2025 6:11 PM EDT [facility] # Lymphs 1.77 1.32 - 3.57 K/ L 02/02/2025 6:11 PM EDT [facility] # Monos 0.29(L) 0.30 - 0.82 K/ L 02/02/2025 6:11 PM EDT [facility] # Eos 0.21 0.04 - 0.54 K/ L 02/02/2025 6:11 PM EDT [facility] # Baso 0.06 0.01 - 0.08 K/ L 02/02/2025 6:11 PM EDT [facility] % Imm Grans 0.20 0.01 - 0.43 % 02/02/2025 6:11 PM EDT [facility] # IG <0.03 0.00 - 0.03 K/uL 02/02/2025 6:11 PM EDT [facility] Blood Venipuncture / Unknown 02/02/2025 5:33 PM EDT 02/02/2025 5:44 PM EDT Narrative [facility] - 02/02/2025 6:11 PM EDT [...] noted Atypical Lymph flag noted us Lele Mansfiled MD LAB BLOOD ORDERABLES Final Resu lt [facility] [address] [phone] * ECG 12 lead (02/02/2025 5:23 PM EDT) Only the most recent of6 resultswithin the time period is included. VENTRICULAR RATE EKG/MIN 70 BPM GE MUSE ATRIAL RATE (MCT) 70 BPM GE MUSE AL Interval 146 ms GE MUSE QRS-INTERVAL (MSEC) 92 ms GE MUSE QT Interval 429 ms GE MUSE QTC Interval 463 ms GE MUSE P [place] 60 degrees GE MUSE R AXIS (MCT) 80 degrees GE MUSE T Wave [place] 73 degrees GE MUSE [place] Diagnosis Normal sinus rhythm Abnormal ECG When compared with ECG of 14-JAN-2025 20:35, Nonspecific T wave abnormality no longer evident in Inferior leads Confirmed by Ayse MENDOZA STEVE ([id number]) on 02/02/2025 9:40:08 PM GE MUSE 02/02/2025 5:23 PM EDT 02/02/2025 9:40 PM EDT Lele Mansfield MD ECG ORDERABLES Final Result Carmine MUSE * (ABNORMAL) Glucose, Nova Meter (01/15/2025 10:28 AM EDT) Only the most recent of10 resultswithin the time period is included. Pathologist [facility] POC-GLUCOSE 135(H) 70 - 110 mg/dL 01/15/2025 10:30 AM EDT [facility] Comment: In the event of poor peripheral blood flow, venous or arterial blood should be used due to the potential of erroneous results. Notified Nurse RBV Roll Panner [id number] 01/15/2025 10:30 AM EDT [facility] Blood WHOLE BLOOD / Unknown 01/15/2025 10:28 AM EDT 01/15/2025 10:29 AM EDT Narrative [facility] - 01/15/2025 10:30 AM EDT Roll Panner ID is - [id number] us Michael Haque MD POINT OF CARE TEST ORDERABLES Final Result [facility] [address] [place] [id number] [phone] * (ABNORMAL) Manual Differential (01/14/2025 3:46 AM EDT) Only the most recent of3 resultswithin the time period is included. Total Counted 100 01/14/2025 6:03 AM EDT [facility] % Neutros (manual) 57 50 - 65 % 01/14/2025 6:03 AM EDT [facility] % Lymphs (manual) 21(L) 24 - 44 % 025 6:03 AM EDT [facility] % Monos (manual) 18(H) 4 - 5 % 01/15/20 25 6:03 AM EDT [facility] % Eos (manual) 3 0 - 3 % 01/14/2025 6:03 AM EDT [facility] % Baso (manual) 1 0 - 1 % 6:03 AM EDT [facility] RBC Morphology abnormal( A) Normal 01/14/2025 6:03 AM EDT [facility] Platelet Estimate Increased (A) Adequate 01/14/2025 6:03 AM EDT [facility] Anisocytosis 1+ 01/14/2025 6:03 AM EDT [facility] Hypochromia 1+ 01/14/2025 6:03 AM EDT [facility] Polychromasia 1+ 01/14/2025 6:03 AM EDT [facility] Macrocytes 1+ 01/14/2025 6:03 AM EDT [facility] Ovalocytes 1+ 01/14/2025 6:03 AM EDT [facility] # Neutrophils (manual) 3.02 K/ L 01/14/2025 6:03 AM EDT [facility] Blood Venipuncture / Unknown 01/14/2025 3:46 AM EDT 01/14/2025 4:39 AM EDT us Carlee Sutton MD LAB BLOOD ORDERABLES Final Re sult [facility] [address] [place] [id number] [phone] * (ABNORMAL) Basic Metabolic Panel (01/14/2025 3:46 AM EDT) Only the most recent of3 resultswithin the time period is included. Sodium 141 136 - 145 meq/L 01/14/2025 5:09 AM EDT [facility] Potassium 3.8 3.4 - 5.1 meq/L 01/14/2025 5:09 AM EDT [facility] CO2 22 22 - 29 meq/L 01/14/2025 5:09 AM EDT [facility] Chloride 105 98 - 112 meq/L 01/14/2025 5:09 AM EDT [facility] Glucose 85 74 - 100 mg/dL 01/14/2025 5:09 AM EDT [facility] BUN 25.2 8.4 - 25.7 mg/dL 01/14/2025 5:09 AM EDT [facility] Creatinine 0.83 0.72 - 1.25 mg/dL 01/14/2025 5:09 AM EDT [facility] BUN/Creatinine 30(H) 8 - 20 01/14/2025 5:09 AM EDT [facility] Calcium 9.5 8.4 - 10.2 mg/dL 01/14/2025 5:09 AM EDT [facility] Anion Gap 18(H) 4 - 12 01/14/2025 5:09 AM EDT [facility] eGFR (mL/min/1.73m2) 101 >=60 mL/min/1.7 3m2 01/14/2025 5:09 AM EDT [facility] Comment:ESTIMATED GFR IS NOT ACCURATE CREATININE CLEARANCE IN PREDICTING GLOMERULAR FILTRATION RATE. ESTIMATED GFR IS NOT APPLICABLE FOR DIALYSIS PATIENTS. Osmolality Calc 285.0 mOsm/kg 5:09 AM EDT [facility] Blood Venipuncture / Unknown 01/14/2025 3:46 AM EDT 01/14/2025 4:38 AM EDT us Carlee Sutton MD LAB BLOOD ORDERABLES Final Re sult Performing Organization Address [facility] Co de Phone Number [facility] [address] [phone] * (ABNORMAL) Iron and TIBC (01/13/2025 3:44 AM EDT) Iron 47(L) 65 - 175 ug/dL 01/13/2025 4:47 PM EDT [facility] TIBC 279 250 - 435 ug/dL 01/13/2025 4:47 PM EDT [facility] % Saturation 17 % 01/13/2025 4:47 PM EDT [facility] UIBC 232 01/13/2025 4:47 PM EDT [facility] Blood Venipuncture / Unknown 01/13/2025 3:44 AM EDT 01/13/2025 4:15 AM EDT us Carlee Sutton MD LAB BLOOD ORDERABLES Final Re sult Performing Organization Address [facility] Phone Number [facility] [address] [phone] * Phosphorus (01/13/2025 3:44 AM EDT) Only the most recent of7 resultswithin the time period is included. Phosphorus 3.6 2.5 - 4.5 mg/dL 01/13/2025 4:40 AM EDT [facility] Blood Venipuncture / Unknown 01/13/2025 3:44 AM EDT 01/13/2025 4:15 AM EDT us Carlee Sutton MD LAB BLOOD ORDERABLES Final Re sult Performing Organization Address [facility] Co de Phone Number [facility] [address] [phone] * Magnesium (01/13/2025 3:44 AM EDT) Only the most recent of6 resultswithin the time period is included. Pathologist [facility] Magnesium 1.7 1.6 - 2.6 mg/dL 01/13/2025 4:40 AM EDT [facility] Blood Venipuncture / Unknown 01/13/2025 3:44 AM EDT 01/13/2025 4:15 AM EDT us Carlee Sutton MD LAB BLOOD ORDERABLES Final Re sult [facility] [address] [phone] * (ABNORMAL) CBC - Hemogram (SJ-BKR) (01/09/2025 2:22 AM EDT) Only the most recent of4 resultswithin the time period is included. Pathologist [facility] WBC 3.6(L) 4.2 - 9.1 K/ L 01/09/2025 2:24 AM EDT [facility] RBC 2.92(L) 4.63 - 6.08 M/ L 01/09/2025 2:24 AM EDT [facility] Hemoglobin 10.5(L) 13.7 - 17.5 GM/DL 01/09/2025 2:24 AM EDT [facility] Hematocrit 31.0(L) 40.1 - 51.0 % 01/09/2025 2:24 AM EDT [facility] MCV 106(H) 79 - 92 fL 01/09/2025 2:24 AM EDT [facility] MCH 36.0(H) 25.7 - 32.2 pg 01/09/2025 2:24 AM EDT [facility] MCHC 33.9 32.3 - 36.5 GM/DL 01/09/2025 2:24 AM EDT [facility] RDW 14.6(H) 11.6 - 14.4 % 01/09/2025 2:24 AM EDT [facility] Platelets 123(L) 140 - 375 K/CU MM 01/09/2025 2:24 AM EDT [facility] MPV 9.1(L) 9.4 - 12.4 fL 01/09/2025 2:24 AM EDT [facility] Blood Venipuncture / Unknown 01/09/2025 2:22 AM EDT 01/09/2025 2:22 AM EDT Whitney Moran MD LAB BLOOD ORDERABLES Final Resul t Performing Organization Address [facility]/ZIP Co de Phone Number [facility] [address] [phone] * (ABNORMAL) CBC Scan (01/07/2025 3:03 AM EDT) Only the most recent of2 resultswithin the time period is included. Platelet Estimate Decreased (A) Adequate 01/07/2025 4:50 AM EDT [facility] RBC Morphology abnormal( A) Normal 01/07/2025 4:50 AM EDT [facility] Anisocytosis 1+ 01/07/2025 4:50 AM EDT [facility] Hypochromia 1+ 01/07/2025 4:50 AM EDT [facility] Polychromasia 1+ 01/07/2025 4:50 AM EDT [facility] Macrocytes 1+ 01/07/2025 4:50 AM EDT [facility] Microcytes 1+ 01/07/2025 4:50 AM EDT [facility] Poikilocytes 1+ 01/07/2025 4:50 AM EDT [facility] Blood Venipuncture / Unknown 01/07/2025 3:03 AM EDT 01/07/2025 3:41 AM EDT us Whitney Moran MD LAB BLOOD ORDERABLES Final Resul t Performing Organization Address City/[facility]/ZIP Co de Phone Number [facility] [address] [phone] * (ABNORMAL) Hemoglobin and Hematocrit (01/06/2025 6:09 PM EDT) Only the most recent of3 resultswithin the time period is included. Hemoglobin 9.3(L) 13.7 - 17.5 GM/DL 01/06/2025 6:22 PM EDT [facility] Hematocrit 26.2(L) 40.1 - 51.0 % 01/06/2025 6:22 PM EDT [facility] Blood Venipuncture / Unknown 01/06/2025 6:09 PM EDT 01/06/2025 6:19 PM EDT us Jarek Connor MD LAB BLOOD ORDERABLES Final Res ult Performing Organization Address City/[facility]/ZIP Co de Phone Number [facility] [address] [place] [address] * Transfuse pheresed platelets (01/06/2025 1:47 AM EDT) Only the most recent of2 resultswithin the time period is included. us Rambo Jackson PA-C [id number] TRANSFUSION OR DERABLES Final Result * PT/INR, PTT (01/05/2025 8:39 PM EDT) aPTT 27.0 22.0 - 32.0 seconds 01/05/2025 9:12 PM EDT [facility] Protime 10.3 9.0 - 12.0 seconds 01/05/2025 9:12 PM EDT [facility] INR 0.92 0.80 - 1.10 01/05/2025 9:12 PM EDT [facility] Blood STRUCTURE OF RIGHT HAND / Unknown Venipuncture / Unknown 01/05/2025 8:39 PM EDT 01/05/2025 8:47 PM EDT us Russel Guerrero MD LAB BLOOD ORDERABLES Final Re sult Performing Organization Address City/[facility]/ZIP Co de Phone Number [facility] [address] [phone] * Type and Screen (01/05/2025 8:39 PM EDT) ABO/Rh A Positive 01/05/2025 8:46 PM EDT [facility] Antibody Screen Negative 01/05/2025 8:46 PM EDT [facility] HISTCHK HIST CHECK PERFORMED 01/05/2025 8:46 PM EDT [facility] Blood STRUCTURE OF RIGHT HAND / Unknown Venipuncture / Unknown 01/05/2025 8:39 PM EDT 01/05/2025 8:46 PM EDT us Rambo Jackson PA-C [facility] BLOOD BANK TEST ORDERABLES F inal Result Performing Organization Address [facility]/ZIP Co de Phone Number [facility] [address] [place] [address] [place] [address], [facility] [phone] * Prepare Plateletpheresis: 2 Units (01/05/2025 7:57 PM EDT) Issue Date/Time [id number] [facility] BLOOD [facility] Product Identification Platelets [facility] Product Code [id number] [facility] BLOOD [facility] Status [facility] TRANSFUSED [facility] Unit [facility] [id number] [facility] BLOOD [facility] Blood Type 5100 [facility] us Rambo Jackson PA-C [id number] BANK PRODUCT O RDERABLES Final Result [facility] [address] [facility] [address], [facility] [phone] * ABO/RH Confirmation/Retype (01/05/2025 6:32 PM EDT) RETYPE A Positive 01/05/2025 8:15 PM EDT [facility] Comment:[id number] Blood Venipuncture / Unknown 01/05/2025 6:32 PM EDT 01/05/2025 8:15 PM EDT Rambo Jackson PA-C [facility] BLOOD BANK TEST ORDERABLES F inal Result Performing Organization Address [facility]/ZIP Co de Phone Number [facility] ([place]) [address] [place] [address], [facility] [phone] * (ABNORMAL) Acetaminophen level (01/05/2025 6:32 PM EDT) Acetaminophen Level <3(L) 10 - 30 ug/mL 01/05/2025 7:31 PM EDT [facility] Blood Venipuncture / Unknown 01/05/2025 6:32 PM EDT 01/05/2025 6:39 PM EDT Rambo FIGUEREDO-Manfred LAB BLOOD ORDERABLES Final Resul t Performing Organization Address [facility] Co de Phone Number [facility] [address] [place] [address] * (ABNORMAL) Salicylate level (01/05/2025 6:32 PM EDT) Salicylate Lvl <5.0(L) 15.0 - 30.0 mg/dL 01/05/2025 7:31 PM EDT [facility] Comment: <20 mg/dL therapeutic >30 mg/dL toxic >60 mg/dL fatalities Occur Blood Venipuncture / Unknown 01/05/2025 6:32 PM EDT 01/05/2025 6:39 PM EDT Narrative [facility] - 01/05/2025 7:31 PM EDT Therapeutic: 15 - 30 mg/dL Toxic Levels: > 30 mg/dL Lethal: > 70 mg/dL Rambo FIGUEREDO-Manfred LAB BLOOD ORDERABLES Final Resul t [facility] [address] [place] [address], [facility] [phone] * Critical Care (01/05/2025 6:18 PM EDT) Narrative Chris Zamudio MD - 01/05/2025 6:18 PM EDT Chris Zamudio MD 01/06/2025 5:55 AM Critical Care Performed by: Chris Zamudio MD Authorized by: Jarek Connor MD Critical care provider statement: Critical care time (minutes): 31 Critical care time was exclusive of: Separately billable procedures and treating other patients Critical care was necessary to treat or prevent imminent or life-threatening deterioration of the following conditions: LOCKER ROOM CLERK failure or compromise Critical care was time [...] Advance Directives For more information, please contact: [phone] Documents on File Type Date Recorded Patient 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 Operator Expl anation Advance Directives and Living Will 01/06/2025 10:42 AM Living Will Directiv e Advance Directives and Living Will 01/05/2025 Advance Directives and Living Will 01/05/2025 * Full Code (Latest Code Status on File) Date Activated Date Inactivated Comments 01/05/2025 7:59 PM 01/15/2025 2:02 PM Healthcare Agents on File Name Relationship Healthcare Agent [facility] Communication Yahaira Cabrera Relative Healthcare Decision-Maker Care Teams Director Call Relationship Specialty Start Date End Date [facility], Find-A-Doc [facility] [place] [address] PCP - General 02/02/25
--- OUTSIDE RECORDS SUMMARY | 2025-02-04 14:20 | XMS_ITS | Encounter Summary ---
Author Organization [employer] ([place], [place], [place], [place]) Address [address] [place] [address] Care Team Providers Care Nba Player Name Role Phone [facility] Connection, Find-A-Doc Primary Care Provider [facility] Connection, Find-A-Doc Primary Care Provider Encounter Details Date Type Department Care Team (Late st Contact Info) Description 01/08/2019 Transcribed Document [facility] Family Medicine [place] [address] ProviderMary Kate MD [address] [place] [address] Social History Tobacco Use Types Packs/Day [...] year old male whom was transported to [facility] from [facility]. Pt. states he went to [facility] due to coughing up blood and [...] Voluntary Post-eval Disposition : Outpatient [facility] ANIMAL ATTENDANTS AND TRAINERS - 01/08/2019 21:39 EDT Social History (As Of: 01/08/2019 21:40:55 EDT) Alcohol: Alcohol Use History Yes. # Drinks/Day: 5. Date/Time of Last Drink: 12/24/2017. Use in Last 12 Months: Yes. Alcohol Use Frequency Daily. Alcohol Use Comment pt states he drinks 4-5 glasses of vodka per day . (Last Updated: 12/24/2017 23:57:55 EDT by Bea Singh RN) Electronically signed by Chava [facility] Conversion Char Belt Operator Cerner at 08/08/2022 11:33 PM CDT documented in this encounter Plan of Treatment Not on file documented as of this encounter Visit Diagnoses Not on filedocumented in this encounter Care Teams Nba Player Relationship Specialty Start Date End Date [facility] Connection, Find-A-Doc [facility] [place] [address] PCP - General 01/05/25 01/05/[address] [facility] [place], Find-A-Doc [facility] [place] [address] PCP - General 02/02/25 documented as of this encounter
--- OUTSIDE RECORDS SUMMARY | 2025-02-04 14:20 | XMS_ITS | Encounter Summary ---
Author Organization [employer] ([place], [place], [place], [place]) Address [address] [place] [address] Care Team Providers Care Pottery Decoration Designer Name Role Phone [facility] Connection, Find-A-Doc Primary Care Provider [facility] Connection, Find-A-Doc Primary Care Provider Encounter Details Date Type Department Care Team (Late st Contact Info) Description 01/08/2019 Transcribed Document [facility] Family Medicine [facility] [place] [address] ProviderMary Kate MD [address] [place] [address] Social History Tobacco Use Types Packs/Day [...] Performed On: 01/08/2019 15:52 EDT by Tiffany Mills, Roll Machine Operator-Credit Underwriter Final Discharge Planning Discharge Arrangements : Patient Post-Acute Information Patient Name: PROSPER MILLS Gender: Male : [birth year] Age: 53 Years Curas[place] Referral(s): Service: Organization: Business Address: Phone Number: [employer] - [address], [place], [address] Transportation Needs : Family/Friend Patient/Family Notified of Plan : Yes Is Patient Ready for Discharge? : Yes Discharge To Care Management : Home/Residential/Fci or Self Care -01 Tiffany Mills Social Worker-Credit Underwriter - 01/08/2019 15:52 EDT Final Narrative Note Final Narrative Note : 01/08 Per PT, pt would benefit from RW at home. Met with pt at the bedside. Discussed arranging RW for home use and he was agreeable. Gave pt choice for DME provider. Referral sent to [employer]. [facility] referral [facility] also [facility]. Tiffany Mills Social Worker-Credit Underwriter - 01/08/2019 15:52 EDT documented in this encounter Plan of Treatment Not on file documented as of this encounter Visit Diagnoses Not on filedocumented in this encounter Care Teams Pottery Decoration Designer Relationship Specialty Start Date End Date [facility] [place], Find-A-Doc [facility] [place] [address] PCP - General 01/05/25 01/05/25 [facility] [place] Find-A-Doc [facility] [place] [address] PCP - General 02/02/25 documented as of this encounter
--- OUTSIDE RECORDS SUMMARY | 2025-02-04 14:20 | XMS_ITS | Encounter Summary ---
Author Organization [employer] ([place], [place], [place], [place]) Address [address] [place] [address] Care Team Providers Care Garment Looper Name Role Phone [facility] Connection, Find-A-Doc Primary Care Provider [facility] Connection, Find-A-Doc Primary Care Provider Encounter Details Date Type Department Care Team (Late st Contact Info) Description 01/08/2019 Transcribed Document [facility] Family [place] [address] ProviderMary Kate MD [address] [place] [address] Social History Tobacco Use Types Packs/Day Years Used Date Smoking Tobacco: Never Assessed Sex and Gender Information Value Date Recorded Sex Assigned at Not on file Legal Sex Male 5:22 PM CDT Gender Identity Not on file Sexual Orientation Not on file documented as of this encounter Miscellaneous Notes * Cerner Conversion Note - Mary Kate Cardenas MD - 01/08/2019 3:30 PM CDT [address] [address] PROSPER MILLS :1965 Visit Time:01/04/2019 Your Visit Summary Your Care Team Admitting Physician - ASHLEY MAGANA MD-INT Attending Physician - ASHLEY MAGANA MD-INT Primary Care Physician - JUAN MIGUEL OROCZO RN Referring Physician - PHY, SELF REFERRED [...] Care Team [facility] [place] [phone] Discharge Activity: Discharge Activity: Activity as tolerated Diet: Discharge Diet: GI Soft/Low Residuel/Low Fiber Follow-Up Appointments Follow Up with JUAN MIGUEL MOLINA NP-FAM When 01/14/2019 11:00 AM EDT Comments Appointment has been made Where: [address] [facility] [place] [address]- x8 Follow Up with MARLENE ÁLVAREZ MD-GAE When In 2 months Comments Office to call with appoint/instructions Where: [address] [place] [address]- Medications What How Much When Instructions Next Dose levETIRAcetam (Keppra 500 mg oral tablet) 1 Tablet(s) Oral Two Times A Day Printed Prescription [facility] 01/08/2019 pantoprazole (pantoprazole 40 mg oral granule, enteric coated) 1 Each Oral Two Times A Day Duration: 30 Day(s) Printed Prescription [facility] 01/08/2019 pantoprazole (Protonix 40 mg oral delayed release tablet) 1 Tablet(s) Oral Two Times A Day Refills: 2 Take on an empty stomach 30 mintues before a meal Pickup at [facility]/pharmacy #[id number] [facility] 01/08/2019 thiamine (thiamine 100 mg oral tablet) 1 Tablet(s) Oral Every Day Duration: 30 Day(s) Printed Prescription tomorrow 01/09/2019 folic acid (folic acid 1 mg oral tablet) 1 Tablet(s) Oral Every Day Printed Prescription tomorrow 01/09/2019 carvedilol (carvedilol 6.25 mg oral tablet) 1 Tablet(s) Oral Two Times A Day [facility] 01/08/2019 hydroCHLOROthiazide (hydroCHLOROthiazide 25 mg oral tablet) 1 Tablet(s) Oral Every Day tomorrow 01/09/2019 lisinopril (lisinopril 10 mg oral tablet) 1 Tablet(s) Oral Every Day tomorrow 01/09/2019 multivitamin (Multiple Vitamins oral capsule) 1 Capsule(s) Oral Every Day Duration: 30 Day(s) Printed Prescription tomorrow 01/09/2019 simvastatin (simvastatin 20 mg oral tablet) 1 Tablet(s) Oral At Bedtime ton01/08/2019 venlafaxine (venlafaxine 37.5 mg oral tablet) 1 Tablet(s) Oral Two Times A Day ton01/08/2019 Pharmacy Information [facility]/pharmacy #[id number]: [address] [place], [place] [id number] [phone] Take your medications faithfully. Do NOT skip [...] foods? Grains Pasta. Quick breads. Muffins. Pancakes. Cycxr-or-vik cereal. Vegetables Vegetables cooked in oil or [...] foods in my diet? Add whole milk, dsyd-faf-qafp, or heavy cream to cereal, pudding, soup, [...] 04/08/2006 Document Revised: 09/13/2016 Document Reviewed: 09/21/2014 [employer] Patient Education ?? 2018 [employer] Recovering From Addiction Addiction is a complex [...] be able to find financial assistance through roa-alh-ghrpjt organizations or with local government-based resources. If you are taking medicines, you may be able to get the generic form, which may be less expensive than brand-name medicine. Some makers of prescription medicines also offer help to patients who cannot afford the medicines that they need. Follow these instructions at home: ??? Take wufy-kjr-hwuafuo and prescription medicines only as told by [...] 08/23/2017 Document Revised: 08/23/2017 Document Reviewed: 08/23/2017 [employer] Patient Education ?? 2019 [employer]. Alcohol Use Disorder Alcohol use disorder [...] Follow these instructions at home: ??? Take sixh-dfx-wqsvmig and prescription medicines only as told by [...] 05/16/2005 Document Revised: 01/03/2017 Document Reviewed: 01/03/2017 [employer] Patient Education ?? 2019 [employer] Alcohol Withdrawal Syndrome Alcohol withdrawal syndrome [...] Follow these instructions at home: ??? Take iifk-gov-lpsiexp and prescription medicines (including vitamin supplements) only [...] 01/16/2006 Document Revised: 12/13/2017 Document Reviewed: 12/13/2017 [employer] Patient Education ?? 2019 [employer]. Alcohol Abuse and Nutrition Alcohol abuse is [...] Your health care provider or diet and study specialist (dietitian) will work with you to [...] 01/31/2006 Document Revised: 12/24/2017 Document Reviewed: 12/24/2017 [employer] Patient Education ?? 2019 [employer]. thiamine (vitamin B1) (THIGH a min) Vitamin [...] Reference Intake' (formerly 'Recommended Daily Allowances' or RADIOGRAPHIC TECHNOLOGIST) listings for more information. Thiamine is only [...] may report side effects to FDA at 1-568-YSG-2109. What other drugs will affect thiamine? There may be other drugs that can interact with thiamine. Tell your doctor about all medications you use. This includes prescription, prjl-ihb-dgbtuje, vitamin, and herbal products. Do not start [...] to ensure that the information provided by [employer]. ('[employer]') is accurate, up-to-date, and complete, but no guarantee is made to that effect. Drug information contained herein may be time sensitive. [employer] information has been compiled for use by healthcare practitioners and consumers in the [place] and therefore [employer] does not warrant that uses outside of the [place] are appropriate, unless specifically indicated otherwise. [employer]'s drug information does not endorse drugs, diagnose patients or recommend therapy. [facility]'s drug information is an informational resource designed [...] effective or appropriate for any given patient. [facility] does not assume any responsibility for any aspect of healthcare administered with the aid of information [facility] provides. The information contained herein is not intended to cover all possible uses, directions, precautions, warnings, drug interactions, allergic reactions, or adverse effects. If you have questions about the drugs you are taking, check with your doctor, nurse or pharmacist. Copyright 6048-0596 [employer]. Version: 3.02. Revision Date: 03/24/2013. folic acid [...] may report side effects to FDA at 4-447-XVE-6159. What other drugs will affect folic acid? [...] your doctor about all your prescription and vnrv-uel-ubkoczk medications, vitamins, minerals, herbal products, and drugs [...] to ensure that the information provided by [employer]. ('[employer]') is accurate, up-to-date, and complete, but no guarantee is made to that effect. Drug information contained herein may be time sensitive. [employer] information has been compiled for use by healthcare practitioners and consumers in the [place] and therefore [employer] does not warrant that uses outside of the [place] are appropriate, unless specifically indicated otherwise. [employer]'s drug information does not endorse drugs, diagnose patients or recommend therapy. [employer] drug information is an informational resource designed [...] effective or appropriate for any given patient. [facility] does not assume any responsibility for any aspect of healthcare administered with the aid of information [facility] provides. The information contained herein is not intended to cover all possible uses, directions, precautions, warnings, drug interactions, allergic reactions, or adverse effects. If you have questions about the drugs you are taking, check with your doctor, nurse or pharmacist. Copyright 0249-0763 [employer]. Version: 5.02. Revision Date: 04/05/2010. multivitamins (MUL [...] may report side effects to FDA at 4-574-YDI-1933. What other drugs will affect multivitamins? Multivitamins [...] drugs may affect multivitamins, including prescription and vfam-dqt-oeypzez medicines, vitamins, and herbal products. Not all [...] on filedocumented in this encounter Care Teams Garment Looper Relationship Specialty Start Date End Date [facility] Connection, Find-A-Doc MARTHA [facility] [place] [address] PCP - General 01/05/25 01/05/25 [facility] [place], Find-A-Doc [facility] [place] [address] PCP - General 02/02/25 documented as of this encounter
--- OUTSIDE RECORDS SUMMARY | 2025-02-04 14:20 | XMS_ITS | Encounter Summary ---
Author Organization [employer] ([place], [place], [place], [place]) Address [address] [place] [address] Care Team Providers Care Deli Worker Name Role Phone [facility] Connection, Find-A-Doc Primary Care Provider [facility] Connection, Find-A-Doc Primary Care Provider Encounter Details Date Type Department Care Team (Late st Contact Info) Description 01/08/2019 Transcribed Document [facility] Radiology [address] [place] [id number] Akshat Elise MD [address] [place] [address] Social History Tobacco Use Types Packs/Day Years [...] appears older than stated age, presents from [place], [place] with two-day history of nausea, vomiting. [...] before. Apparently, he had gone to the [facility] about one year ago and brought over to [facility] because of seizures at that time. He [...] heavy alcohol abuse. No alcohol withdrawal. Continue Keppra. They want the patient to follow up [...] DISCHARGE CONDITION: Stable. [facility] ACTIVITY: Advance as tolerated. Obviously, no [...] on filedocumented in this encounter Care Teams Deli Worker Relationship Specialty Start Date End Date [facility] [place] Find-A-Doc [facility] [place] [address] PCP - General 01/05/25 01/05/25 [facility] [place], Find-A-Doc [facility] [place] [address] PCP - General 02/02/25 documented as of this encounter"
--- OUTSIDE RECORDS SUMMARY | 2025-02-04 14:21 | XMS_ITS | Encounter Summary ---
Author Organization [employer] ([place], [place], [place], [place]) Address [address] [place] [address] Care Team Providers Care Custom Motorcycle Painter Name Role Phone [facility] Connection, Find-A-Doc Primary Care Provider [facility] Connection, Find-A-Doc Primary Care Provider Encounter Details Date Type Department Care Team (Late st Contact Info) Description 01/06/2019 Transcribed Document [facility] Family Medicine [place] [address] ProviderMary Kate MD [address] [place] [address] Social History Tobacco Use Types Packs/Day [...] on filedocumented in this encounter Care Teams Custom Motorcycle Painter Relationship Specialty Start Date End Date [facility] Find-A-Doc [facility] Find-a-Doc [place], [place] [id number] PCP - General 01/05/25 01/05/25 [facility] [place] Find-A-Doc MARTHA [facility] Find-a-Doc [place], [place] [id number] PCP - General 02/02/25 documented as of this encounter
--- OUTSIDE RECORDS SUMMARY | 2025-02-04 14:21 | XMS_ITS | Encounter Summary ---
Author Organization [employer] ([place], [place], [place], [place]) Address [address] [place] [address] Care Team Providers Care Clinical Auditor Name Role Phone [facility] Connection, Find-A-Doc Primary Care Provider [facility] Connection, Find-A-Doc Primary Care Provider Encounter Details Date Type Department Care Team (Late st Contact Info) Description 01/07/2019 Transcribed Document [facility] [place] [facility] [place] [address] ProviderMary Kate MD [address] [place] [address] Social History Tobacco Use Types Packs/Day Years Used Date Smoking Tobacco: Never Assessed Sex and Gender Information Value Date Recorded Sex Assigned at Not on file Legal Sex Male 5:22 PM CDT Gender Identity Not on file Sexual Orientation Not on file documented as of this encounter Miscellaneous Notes * Cerner Conversion Note - Mary Kate ProviderMD - 01/07/2019 5:00 PM CDT Chart Check - Review Order Profile Entered On: 01/07/2019 17:04 EDT Performed On: 01/07/2019 17:00 EDT by NARGIS MEREDITH, SHANELL Chart Check All Active Orders Reviewed : Yes NARGIS MEREDITH RN - 01/07/2019 17:04 EDT Electronically signed by Chava [facility] Conversion Top Collar Maker Cerner at 08/08/2022 11:16 PM CDT documented in this encounter Plan of Treatment Not on file documented as of this encounter Visit Diagnoses Not on filedocumented in this encounter Care Teams Clinical Auditor Relationship Specialty Start Date End Date [facility] [place], Find-A-Doc [facility] [place] [address] PCP - General 01/05/25 01/05/25 [facility] [place], Find-A-Doc [facility] [place] [address] PCP - General 02/02/25 documented as of this encounter
--- OUTSIDE RECORDS SUMMARY | 2025-02-04 14:21 | XMS_ITS | Encounter Summary ---
Author Organization [employer] ([place], [place], [place], [place]) Address [address] [place] [address] Care Team Providers Care Multimedia Programmer Name Role Phone [facility] Connection, Find-A-Doc Primary Care Provider [facility] Connection, Find-A-Doc Primary Care Provider Encounter Details Date Type Department Care Team (Late st Contact Info) Description 01/07/2019 Transcribed Document [facility] Family Medicine [facility] [place] [address] ProviderMary Kate MD [address] [place] [address] Social History Tobacco Use Types Packs/Day Years Used Date Smoking Tobacco: Never Assessed Sex and Gender Information Value Date Recorded Sex Assigned at Not on file Legal Sex Male 5:22 PM CDT Gender Identity Not on file Sexual Orientation Not on file documented as of this encounter Miscellaneous Notes * Cerner Conversion Note - Mary Kate ProviderMD - 01/07/2019 2:00 AM CDT Software Firmware Engineer Details Entered On: 01/07/2019 2:09 EDT Performed [...] Day Teixeira Rn - 01/07/2019 2:09 EDT Electronically signed by Chava [facility] Conversion Design/Animation Instructor Cerner at 08/08/2022 11:12 PM CDT documented in this encounter Plan of Treatment Not on file documented as of this encounter Visit Diagnoses Not on filedocumented in this encounter Care Teams Multimedia Programmer Relationship Specialty Start Date End Date [facility] Connection, Find-A-Doc [facility] [place] [address] PCP - General 01/05/25 01/05/25 [facility] [place], Find-A-Doc [facility] [place] [address] PCP - General 02/02/25 documented as of this encounter
--- OUTSIDE RECORDS SUMMARY | 2025-02-04 14:21 | XMS_ITS | Encounter Summary ---
Author Organization [employer] ([place], [place], [place], [place]) Address [address] [place] [address] Care Team Providers Care Director Of Recruitment And Admissions Name Role Phone [facility] Primary Care Provider [facility] Primary Care Provider Encounter Details Date Type Department Care Team (Late st Contact Info) Description 01/07/2019 Transcribed Document [facility] [place] [facility] [place] [address] ProviderMary Kate MD [address] [place] [address] Social History Tobacco Use Types Packs/Day [...] Performed On: 01/07/2019 18:10 EDT by JOSÉ MIGUEL OWENS, Moisés-Area Operations ManagerHat Block Maker Progress Note Discharge Arrangements : Patient Post-Acute [...] Multidisciplinary Rounds? : Yes JOSÉ MIGUEL OWENS, Rn-Area Operations Manager - 01/07/2019 18:10 EDT Narrative Progress Note Narrative Progress Note : Patient was about to start at [facility] but became acutely ill and went to [facility]. esophageal bleed clipped, neuro work up was unremarkable. PT and OT ordered. Will probably need OLOP at co or [facility] JOSÉ MIGUEL OWENS Rn-Area Operations Manager - 01/07/2019 18:10 EDT documented in this encounter Plan of Treatment Not on file documented as of this encounter Visit Diagnoses Not on filedocumented in this encounter Care Teams Director Of Recruitment And Admissions Relationship Specialty Start Date End Date [facility] Find-A-Doc [facility] [place] [address] PCP - General 01/05/25 01/05/25 [facility] [place] [address] PCP - General 02/02/25 documented as of this encounter
--- OUTSIDE RECORDS SUMMARY | 2025-02-04 14:21 | XMS_ITS | Encounter Summary ---
Author Organization [employer] ([place], [place], [place], [place]) Address [address] [place] [address] Care Team Providers Care Rd Manager Name Role Phone [facility], [facility] Primary Care Provider [facility] Primary Care Provider Encounter Details Date Type Department Care Team (Late st Contact Info) Description 01/07/2019 Transcribed Document [facility] [place] [facility] [place] [address] ProviderMary Kate MD [address] [place] [phone] Social History Tobacco Use Types Packs/Day Years Used Date Smoking Tobacco: Never Assessed Sex and Gender Information Value Date Recorded Sex Assigned at Not on file Legal Sex Male 5:22 PM CDT Gender Identity Not on file Sexual Orientation Not on file documented as of this encounter Miscellaneous Notes * Cerner Conversion Note - Mary Kate ProviderMD - 01/07/2019 9:35 AM CDT Spiritual [...] LINDO Chaplain-Non Cert - 01/07/2019 10:06 EDT Electronically signed by Chava [facility] Conversion Mold Cleaner Cerner at 08/08/2022 11:24 PM CDT documented in this encounter Plan of Treatment Not on file documented as of this encounter Visit Diagnoses Not on filedocumented in this encounter Care Teams Rd Manager Relationship Specialty Start Date End Date [facility], Find-A-Doc [facility] [place] [address] PCP - General 01/05/25 01/05/25 [facility] [place], Find[facility]A-Doc [facility] [place] [address] PCP - General 02/02/25 documented as of this encounter
--- OUTSIDE RECORDS SUMMARY | 2025-02-04 14:21 | XMS_ITS | Encounter Summary ---
Author Organization [employer] [facility] ([place], [place], [place], [place]) Address [address] [place] [address] Care Team Providers Care Lagging Machine Operator Name Role Phone [facility], Find-A-Doc Primary Care Provider [facility], Find[facility]A-Doc Primary Care Provider Encounter Details Date Type Department Care Team (Late st Contact Info) Description 01/07/2019 Transcribed Document [facility] Radiology [address] [phone] Akshat Magana MD [address] [place] [address] Social History Tobacco Use Types Packs/Day Years Used Date Smoking Tobacco: Never Assessed Sex and Gender Information Value Date Recorded Sex Assigned at Not on file Legal Sex Male 5:22 PM CDT Gender Identity Not on file Sexual Orientation Not on file documented as of this encounter Miscellaneous Notes * Cerner Conversion Note - Akshat Magana MD - 01/07/2019 8:46 AM EDT Patient: PROSPER MLILS Age: 53 years Sex: Male : 1965 Associated Diagnoses: None Author: AKSHAT MAGANA MD Subjective Chief complaint. Saturday, January 05, 2019. Patient required multiple doses of Ativan overnight and she is oriented to name, date of , age, 2019, [facility]. [facility], [facility] however he's definitely agitated and confused. [...] he was set up to go to [facility] for alcohol rehabilitation on Saturday and he was hoping to be able to get to go to one of these places which I strongly encouraged him. Apparently I discussed with the case fitter in [facility] will see people [...] list: Medical Alcohol abuse / SNOMED CT 04514138 / Confirmed Alcoholism / SNOMED CT 80460536 / Confirmed Depression / SNOMED CT 121440016 / Confirmed GERD - Gastro-esophageal reflux disease / SNOMED CT 1599851631 / Confirmed Hiatal hernia / SNOMED CT 401313193 / Confirmed History of obstructive sleep apnea / IMO [id number] / Confirmed HTN - Hypertension / SNOMED CT 7103133246 / Confirmed Hyperlipidemia / SNOMED CT 85741992 / Confirmed, Active Problems (13) Acid reflux [...] 130 (JAN 07 09:00) Resp Rate 18 (JAN 07 12:00) L 11 (JAN 07 02:00) H 42 (JAN 07 07:00) SBP H 146 (JAN 07 12:00) 120 (JAN 06 13:00) H 183 (JAN 07 09:00) DBP 88 (JAN 07 12:00) 60 (JAN 06 13:00) H 99 (JAN 06 20:00) MAP 112 (JAN 07 12:00) 83 (JAN 06 13:00) 127 (JAN 07 09:00) SpO2 98.00 (JAN 07 12:00) L 89.00 (JAN 07 09:00) 100.00 (JAN 06 20:30) Physical Examination VS/Measurements Vitals Signs (last 24 hrs) Last Charted Minimum Maximum Temp 98.8 (JAN 07 08:00) 97.6 (JAN 07 00:00) 98.8 (JAN 07 08:00) Mon HR 88 (JAN 07 12:00) 76 (JAN 06 19:00) 130 (JAN 07 09:00) Resp Rate 18 (JAN 07 12:00) L 11 (JAN 07 02:00) H 42 (JAN 07 07:00) SBP H 146 (DEC 18 12:00) 120 ([facility] 17 13:00) H 183 (JAN 07 09:00) DBP 88 ([facility] 12:00) 60 (DEC 17 13:00) H 99 (SEP 17 20:00) MAP 112 (DEC 18 12:00) 83 (DEC 17 13:00) 127 (DEC 18 09:00) SpO2 98.00 (DEC 18 12:00) L 89.00 (DEC 18 09:00) 100.00 (DEC 17 20:30) General: Alert and oriented, No [...] 62 (SEP 15) T Bili 0.4 (DEC 18) 0.4 (SEP 17) 0.5 (SEP 16) 0.6 (SEP 15) PTN L 6.0 (DEC 18) L 5.9 (DEC 17) 7.2 (SEP 16) 7.7 (SEP 15) ALB L 2.7 (DEC 18) L 2.8 (SEP 17) 3.4 (SEP [...] 3 times a day. I've also talked case fitter and like to have [facility] come see him get the ball rolling as far as alcohol rehabilitation. Interestingly he states he was set up to go to [facility] which is in [facility]. The patient lives in [facility] and so hopefully he is in their network as this is his first choice but I told him up to see what [facility] can get set up for him. His pancytopenia is pretty stable white blood cell count improved from 3 up to 4, hemoglobin improved from 7.8 up to 8.1, platelets of 84 up from 69 yesterday [employer] dictation system used. Computer program makes numerous spelling grammar mistakes. If you have any questions or concerns do not hesitate call Dr. Akshat Llamas at cell phone number [phone]. documented in this encounter Plan of Treatment Not on file documented as of this encounter Visit Diagnoses Not on filedocumented in this encounter Care Teams Lagging Machine Operator Relationship Specialty Start Date End Date [facility], Find-A-Doc [facility] [place] [address] PCP - General 01/05/25 01/05/25 [facility], Find[facility]Doc [facility] [place] [address] PCP - General 02/02/25 documented as of this encounter
--- OUTSIDE RECORDS SUMMARY | 2025-02-04 14:21 | XMS_ITS | Encounter Summary ---
Author Organization [employer] ([place], [place], [place], [place]) Address [address] [place] [address] Care Team Providers Care Lead Ios Developer Name Role Phone [facility], Find-A-Doc Primary Care Provider [facility], [facility]A-Doc Primary Care Provider Encounter Details Date Type Department Care Team (Late st Contact Info) Description 01/07/2019 Transcribed Document [facility] [place] [facility] [place] [address] ProviderMary Kate MD [address] [place] [phone] Social History Tobacco Use Types Packs/Day Years Used Date Smoking Tobacco: Never Assessed Sex and Gender Information Value Date Recorded Sex Assigned at Not on file Legal Sex Male 5:22 PM CDT Gender Identity Not on file Sexual Orientation Not on file documented as of this encounter Miscellaneous Notes * Cerner Conversion Note - Mary Kate ProviderMD - 01/07/2019 9:47 AM CDT Event [...] during rounds of consult and reason. Margarita Santamaria Rn - 01/07/2019 9:47 EDT Electronically signed by Chava [facility] Conversion General Office Dispatcher Cerner at 08/08/2022 11:15 PM CDT documented in this encounter Plan of Treatment Not on file documented as of this encounter Visit Diagnoses Not on filedocumented in this encounter Care Teams Lead Ios Developer Relationship Specialty Start Date End Date [facility], [facility] [place] [address] PCP - General 01/05/25 01/05/25 [facility], Find[facility] [place] [address] PCP - General 02/02/25 documented as of this encounter
--- OUTSIDE RECORDS SUMMARY | 2025-02-04 14:21 | XMS_ITS | Encounter Summary ---
Author Organization [employer] ([place], [place], [place], [place]) Address [address] [place] [address] Care Team Providers Care Geology Technician Name Role Phone [facility], Find-A-Doc Primary Care Provider [facility], Find[facility]A-Doc Primary Care Provider Encounter Details Date Type Department Care Team (Late st Contact Info) Description 01/07/2019 Transcribed Document [facility] [place] [facility] [place] [address] ProviderMary Kate MD [address] [place] [phone] Social History Tobacco Use Types Packs/Day Years Used Date Smoking Tobacco: Never Assessed Sex and Gender Information Value Date Recorded Sex Assigned at Not on file Legal Sex Male 5:22 PM CDT Gender Identity Not on file Sexual Orientation Not on file documented as of this encounter Miscellaneous Notes * Cerner Conversion Note - Mary Kate Cardenas MD - 01/07/2019 1:10 PM CDT Patient: PROSPER MILLS Age: 53 years [...] well. Duodenum was normal. Electronically signed by Chava [facility] Conversion Staff Veterinarian Cerner at 08/08/2022 11:11 PM CDT documented in this encounter Plan of Treatment Not on file documented as of this encounter Visit Diagnoses Not on filedocumented in this encounter Care Teams Geology Technician Relationship Specialty Start Date End Date [facility], Find-A-Doc [facility] [place] [address] PCP - General 01/05/25 01/05/25 [facility], Find[facility]A-Doc [facility] [place] [address] PCP - General 02/02/25 documented as of this encounter
--- OUTSIDE RECORDS SUMMARY | 2025-02-04 14:21 | XMS_ITS | Encounter Summary ---
Author Organization [employer] ([place], [place], [place], [place]) Address [address] [place] [address] Care Team Providers Care Hydrotel Operator Name Role Phone [facility], Find[facility]A-Doc Primary Care Provider [facility], Find[facility]A-Doc Primary Care Provider Encounter Details Date Type Department Care Team (Late st Contact Info) Description 01/07/2019 Transcribed Document [facility] [place] [facility] [place] [address] ProviderMary Kate MD [address] [place] [phone] Social History Tobacco Use Types Packs/Day Years Used Date Smoking Tobacco: Never Assessed Sex and Gender Information Value Date Recorded Sex Assigned at Not on file Legal Sex Male 5:22 PM CDT Gender Identity Not on file Sexual Orientation Not on file documented as of this encounter Miscellaneous Notes * Cerner Conversion Note - Mary Kate ProviderMD - 01/07/2019 1:15 PM CDT Patient: PROSPER MILLS Age: 53 [...] list: All Problems Hypertension / SNOMED CT 8132998203 / Confirmed Hyperlipidemia / SNOMED CT 46434397 / Confirmed Hyperlipidemia / SNOMED CT 34724247 / Confirmed HTN - Hypertension / SNOMED CT 4881768314 / Confirmed History of obstructive sleep apnea / IMO 84744060 / Confirmed Hiatal hernia / SNOMED CT 523409545 / Confirmed Hiatal hernia / SNOMED CT 021938466 / Confirmed GERD - Gastro-esophageal reflux disease / SNOMED CT 6073837317 / Confirmed Acid reflux / SNOMED CT 952285885 / Confirmed Depression / SNOMED CT 46256416 / Confirmed Depression / SNOMED CT 734415326 / Confirmed Alcoholism / SNOMED CT 22528721 / Confirmed Alcohol abuse / SNOMED CT 37291168 / Confirmed Canceled: No Chronic Problems / Cerner NKP Physical Examination VS/Measurements Vitals Signs (last 24 hrs) Last Charted Minimum Maximum Temp 98.8 (DEC 18 08:00) 97.6 (DEC 18 00:00) 98.8 [...] No deformity, Normal gait. Integumentary: Warm, Dry, [place], No rash. Integumentary exam: Face, Chest, Arm, [...] of the entire esophagus, small hiatal hernia, Susana -Ruiz tear with two endoclips placed. There [...] on filedocumented in this encounter Care Teams Hydrotel Operator Relationship Specialty Start Date End Date [facility], Find-A-Doc [facility] [place] [address] PCP - General 01/05/25 01/05/25 [facility], Find[facility]A-Doc [facility] [place] [address] PCP - General 02/02/25 documented as of this encounter
--- OUTSIDE RECORDS SUMMARY | 2025-02-04 14:21 | XMS_ITS | Encounter Summary ---
Author Organization [employer] ([place], [place], [place], [place]) Address [address] [place] [address] Care Team Providers Care Food Service Ambassador Name Role Phone [facility], Find-A-Doc Primary Care Provider [facility], Find-A-Doc Primary Care Provider Encounter Details Date Type Department Care Team (Late st Contact Info) Description 01/07/2019 Transcribed Document [facility] [place] [facility] [place] [address] ProviderMary Kate MD [address] [place] [address] Social History Tobacco Use Types Packs/Day [...] on filedocumented in this encounter Care Teams Food Service Ambassador Relationship Specialty Start Date End Date [facility] [place] Find-A-Doc [facility] Find-a-Doc [place], [place] [id number] PCP - General 01/05/25 01/05/25 [facility] Find-A-Doc [facility] [place] [address] PCP - General 02/02/25 documented as of this encounter
--- OUTSIDE RECORDS SUMMARY | 2025-02-04 14:21 | XMS_ITS | Encounter Summary ---
Author Organization [employer] ([place], [place], [place], [place]) Address [address] [place] [address] Care Team Providers Care Rv Parts And Service Director Name Role Phone [facility], Find[facility]A-Doc Primary Care Provider [facility] Find[facility]A-Doc Primary Care Provider Encounter Details Date Type Department Care Team (Late st Contact Info) Description 01/07/2019 Transcribed Document [facility] [facility] [place] [address] ProviderMary Kate MD [address] [place] [address] Social History Tobacco Use Types Packs/Day Years Used Date Smoking Tobacco: Never Assessed Sex and Gender Information Value Date Recorded Sex Assigned at Not on file Legal Sex Male 5:22 PM CDT Gender Identity Not on file Sexual Orientation Not on file documented as of this encounter Miscellaneous Notes * Cerner Conversion Note - Mary Kate ProviderMD - 01/07/2019 12:40 PM CDT Blow Molder Details Entered On: 01/07/2019 14:40 EDT Performed [...] : Appropriate Arterial Line : No Margarita Santamaria Rn - 01/07/2019 14:40 EDT documented in this encounter Plan of Treatment Not on file documented as of this encounter Visit Diagnoses Not on filedocumented in this encounter Care Teams Rv Parts And Service Director Relationship Specialty Start Date End Date [facility], Find-A-Doc [facility] [place] [address] PCP - General 01/05/25 01/05/25 [facility], Find-A-Doc [facility] [address] PCP - General 02/02/25 documented as of this encounter
--- OUTSIDE RECORDS SUMMARY | 2025-02-04 14:21 | XMS_ITS | Encounter Summary ---
Author Organization [employer] ([place], [place], [place], [place]) Address [address] [place] [address] Care Team Providers Care Office Manager Executive Assistant Name Role Phone [facility], Find-A-Doc Primary Care Provider [facility], Find-A-Doc Primary Care Provider Encounter Details Date Type Department Care Team (Late st Contact Info) Description 01/07/2019 Transcribed Document [facility] [place] [facility] [place] [address] ProviderMary Kate MD [address] [place] [address] Social History Tobacco Use Types Packs/Day [...] on filedocumented in this encounter Care Teams Office Manager Executive Assistant Relationship Specialty Start Date End Date [facility], Find-A-Doc [facility] [place] [address] PCP - General 01/05/25 01/05/25 [facility], Find-A-Doc [facility] [place] [address] PCP - General 02/02/25 documented as of this encounter
--- OUTSIDE RECORDS SUMMARY | 2025-02-04 14:21 | XMS_ITS | Encounter Summary ---
Author Organization [employer] ([place], [place], [place], [place]) Address [address] [place] [address] Care Team Providers Care National Sales Associate Name Role Phone [facility], Find-A-Doc Primary Care Provider [facility], Find-A-Doc Primary Care Provider Encounter Details Date Type Department Care Team (Late st Contact Info) Description 01/07/2019 Transcribed Document [facility] [place] [address] [place] [address] ProviderMary Kate MD [address] [place] [address] Social History Tobacco Use Types Packs/Day [...] Margarita Santamaria Rn - 01/07/2019 12:30 EDT Electronically signed by Jaron Larsen Conversion Electrode Cleaning Machine Operator Carlitos at 08/08/2022 11:14 PM CDT documented in this encounter Plan of Treatment Not on file documented as of this encounter Visit Diagnoses Not on filedocumented in this encounter Care Teams National Sales Associate Relationship Specialty Start Date End Date [facility] [place], Find-A-Doc [facility] Find-a-Doc [place], [place] [id number] PCP - General 01/05/25 01/05/25 [facility] Find-A-Doc [place] [address] PCP - General 02/02/25 documented as of this encounter
--- OUTSIDE RECORDS SUMMARY | 2025-02-04 14:21 | XMS_ITS | Encounter Summary ---
Author Organization [employer] ([place], [place], [place], [place]) Address [address] [place] [address] Care Team Providers Care Medical Appointment Clerk Name Role Phone [facility], Find-A-Doc Primary Care Provider [facility], Find-A-Doc Primary Care Provider Encounter Details Date Type Department Care Team (Late st Contact Info) Description 01/07/2019 Transcribed Document [facility] [place] [facility] [place] [address] ProviderMary Kate MD [address] [place] [address] Social History Tobacco Use Types Packs/Day Years Used Date Smoking Tobacco: Never Assessed Sex and Gender Information Value Date Recorded Sex Assigned at Not on file Legal Sex Male 5:22 PM CDT Gender Identity Not on file Sexual Orientation Not on file documented as of this encounter Miscellaneous Notes * Cerner Conversion Note - Mary Kate ProviderMD - 01/07/2019 9:45 AM CDT Plant Operations Worker Details Entered On: 01/07/2019 12:30 EDT Performed [...] : No Margarita Santamaria Rn - 01/07/2019 12:29 EDT documented in this encounter Plan of Treatment Not on file documented as of this encounter Visit Diagnoses Not on filedocumented in this encounter Care Teams Medical Appointment Clerk Relationship Specialty Start Date End Date [facility], Find-A-Doc [facility] [place] [address] PCP - General 01/05/25 01/05/25 [facility], Find-A-Doc [facility] [place] [address] PCP - General 02/02/25 documented as of this encounter
[2025-02-04 14:24] LABS: Hematocrit 41.2 % (42.0-52.0); Hemoglobin 14.0 g/dL (14.1-18.0); Immature Granulocytes % 0.2 %; Mean Corpuscular HGB Conc 34.0 g/dL (31.8-35.4); Mean Corpuscular Hemoglobin 33.6 pg (27.0-31.2); Mean Corpuscular Volume 98.8 fl (80-94); Nucleated Red Blood Cells % 0 %; Platelet Count 233 K/mm3 (142-424); Red Blood Count 4.17 M/mm3 (4.60-6.20); Red Cell Distribution Width-SD 49.8 fL; White Blood Count 8.5 K/mm3 (4.8-10.8)
--- NOTE | 2025-02-04 14:25 | XR_ITS ---
FINAL REPORT CLINICAL HISTORY: pain/fall FINDINGS: AP, lateral and oblique views of the left knee were obtained. There is no prior exam for comparison. There is no acute osseous abnormality of the left knee. The joint space is preserved. There is nonspecific cortical thickening of the distal left femur. The soft tissues are normal. There is no joint effusion. IMPRESSION: No acute osseous abnormality. Reviewed, Interpreted and Dictated by Flor Cisneros MD Transcribed by Alicia Monroe Authenticated and . [facility]
--- NOTE | 2025-02-04 14:25 | XR_ITS ---
FINAL REPORT CLINICAL HISTORY: pain/fall FINDINGS: AP, lateral and oblique views of the right knee were obtained. There is no prior exam for comparison. There is no acute osseous abnormality of the right knee. The joint space is preserved. There is nonspecific cortical thickening of the distal right femur. The soft tissues are normal. There is no joint effusion. IMPRESSION: No acute osseous abnormality. Reviewed, Interpreted and Dictated by Flor Cisneros MD Transcribed by Alicia Monroe Authenticated and . [facility]
--- OUTSIDE RECORDS SUMMARY | 2025-02-04 14:25 | XMS_ITS | Clinical Summary ---
Author Organization Healthcare Address [address] [place] [address] Care Team Providers Care Air Traffic Controller Name Role Phone Darin Monreal MD Primary Care Provider [phone] Eitan Mitchell MD Unavailable [phone] Vinh Henry MD Unavailable [phone] Allergies No known active allergies Medications Vivitrol [...] Improving Continue to monitor Esophageal dysphagia 02/11/2022 Stricture and stenosis of esophagus 11/29/2020 Overview (06/24/2022): Hx of multiple dilations and esophageal stents 06/15/2022 s/p Robot-assisted laparoscopic and Robot-assisted thoracoscopic Freddie Alessandro Esophagectomy, Gastric emptying procedure with Botox [...] 03/27/2022 04/03/2022 RUTHIE (acute kidney injury) 02/10/2022 Feeding difficulty 01/05/2022 Overview (06/24/2022): Prior PEG placement due to esophageal stricture PEG removed in surgery, no Jtube UGI without leak CLD, boost due to increased distention Acute kidney injury 09/01/2021 09/06/19 Uremia 09/01/2021 [...] drink first t melissa in the morning (EYE-FIGURINE MAKER) to steady your nerves or to get [...] Health Maintenance Due Date Last Done Comments Y-Medicare Annual Wellness (AWV) 1965 [facility]-/Child/Adol SDOH Screenings 1965 [facility]- SDOH Screenings 1983 [facility]-Adult SDOH Screenings 1983 [...] 2) 2015 [facility]-Depression Screening 03/23/2023 022, 10/20/2020 [id number]-AVPLG-50 Vaccine ( - season) 2024 04/05/2021, 08/26/2020, 07/26/2020 [facility]-Influenza Vaccine (#1) 2024 01/30/2019 [facility]-HIV Screening Completed 09/11/2020 [facility]-Hepatitis [...] this topic Medical Devices Implanted Type Area Social Work Manager Device Identifier Shelf Expiration Date Model / Serial / Lot Stent Esoph 10cm - [id number] Implanted:Qty : 1 on 05/17/2021 by Ivory Reno MD at [facility] Esophagus [id number] / / [id number] Duraclip 16mm - [id number] Implanted:Qty : 1 on 05/17/2021 by Ivory Reno MD at [facility] N/A: Esophagus [employer]-1388 55 08/02/2023 [id number] / / [id number] Duraclip 16mm - [id number] Implanted:Qty : 1 on 05/17/2021 by Ivory Reno MD at [facility] N/A: Esophagus [employer]-1388 55 08/02/2023 [id number] / / [id number] Duraclip 16mm - [id number] Implanted:Qty : 1 on 05/17/2021 by Ivory Reno MD at [facility] N/A: Esophagus [employer]-1388 55 08/02/2023 [id number] / / [id number] Duraclip 16mm - [id number] Implanted:Qty : 1 on 05/17/2021 by Ivory Reno MD at [facility] N/A: Esophagus [employer]-1388 55 08/02/2023 [id number] / / [id number] Duraclip 16mm - [id number] Implanted:Qty : 3 on 09/04/2021 by Ivory Reno MD at [facility] Esophagus [employer]-1388 55 10/22/2023 [id number] / / [id number] Stent Esoph 10cm - [id number] Implanted:Qty : 1 on 09/04/2021 by Ivory Reno MD at [facility] [employer] Inc-[id number] 06/30/2023 [id number] / / [id number] Duraclip 11mm - [id number] Implanted:Qty : 2 on 01/08/2022 by Eitan Mitchell MD at [facility] Esophagus [employer]-1388 55 10/20/2023 [id number] / / [id number] Duraclip 16mm - [id number] Implanted:Qty : 1 on 02/13/2022 by Eitan Mitchell MD at [facility] N/A: Other (See Comments) [employer]-1388 55 08/02/2023 [id number] / / [id number] Stent Esoph 12fr 20mm - [id number] Implanted:Qty : 1 on 02/13/2022 by Eitan Mitchell MD at [facility] N/A: Esophagus [employer]-[id number] 12/29/2023 [id number] / [id number] / [id number] Stent Esoph 10fr 20mm - [id number] Implanted:Qty : 1 on 04/03/2022 by Eitan Mitchell MD at [facility] Esophagus [employer]-[id number] 01/19/2024 [id number] / [id number] / [id number] Procedures Procedure Name Priority Date/Time Associated [...] AM EDT 09/11/2020 1:53 AM EDT Caren Grvaes DO LAB BLOOD ORDERABLES Final Res ult [...] Most Recently Relevant to Health Maintenance Insurance [facility] MEDICARE Advance Directives * Full Code (Latest [...] Patient has decision-making capacity? Yes Care Teams Air Traffic Controller Relationship Specialty Start Date End Date Darin Monreal MD [address] [place] [address] PCP - General 10/20/20 Eitan Mitchell MD [address] [place] [address] Consulting Physician Gastroenterology 04/03/22 Vinh Henry MD [address] [place] [address] Consulting Physician Cardiothoracic Surgery 04/03/22
--- OUTSIDE RECORDS SUMMARY | 2025-02-04 14:25 | XMS_ITS | Clinical Summary ---
Author Organization [facility] Address [address] [place] [address] Care Team Providers Care Dairy Equipment Repairer Name Role Phone Karolina Jarrell APRN Primary Care Provid er Allergies No known active allergies Medications * This document contains information received from the source organization and may not represent a complete record from that organization. carvedilol (COREG) 6.25 MG tabletIndication s:Primary Hypertension (Inactive) Take 1 tablet by mouth 2 (Two) Times a Day With Meals. Indications: PRIMARY HYPERTENSION (INACTIVE) Active folic acid (FOLVITE) 1 MG tablet Take 1 tablet by mouth Daily. 30 tablet 4 Active vitamin B-12 (VITAMIN B-12) 1000 MCG tablet Take 1 tablet by mouth Daily. 30 tablet 4 Active acamprosate (CAMPRAL) 333 MG EC tablet Take 2 tablets by mouth 3 (Three) Times a Day. 180 tablet 4 Active pantoprazole (PROTONIX) 40 MG EC tablet Take 1 tablet by mouth Every Morning. 30 tablet 4 Active thiamine (VITAMIN B1) 100 MG tablet Take 1 tablet by mouth Daily. 30 tablet 4 Active carvedilol (COREG) 12.5 MG tabletIndication s:Primary Hypertension (Inactive) Take 1 tablet by mouth 2 (Two) Times a Day With Meals. Indications: PRIMARY HYPERTENSION (INACTIVE) 60 tablet 4 Active Active Problems Problem Noted Date Diagnosed Date Severe protein-calorie malnutrition 03/28/2024 Weakness 03/26/2024 Moderate malnutrition 02/22/2024 Altered mental state 02/21/2024 Alcohol abuse 02/21/2024 Substance abuse 02/21/2024 History of CVA (cerebrovascular accident) 2023 Acute kidney injury 02/21/2024 AMS (altered mental status) 02/21/2024 Alcohol withdrawal 12/20/2023 Mixed hyperlipidemia 01/26/2019 Essential hypertension 01/26/2019 Seizure disorder 01/26/2019 Chronic pain disorder 01/26/2019 Overview (01/26/2019): back Alcohol dependence with withdrawal 01/25/2019 Resolved Problems Problem Noted Date Diagnosed Date Resolved Date Stroke 02/20/2024 02/21/2024 Immunizations Immunization Administration Dates Next Due -influenza Vac Quardvalent Preservativ 03/07/2020(Deferred: Patient decision) Influenza Injectable Mdck Pf Quad 01/26/2019(Def erred: Other) flucelvax quad pfs =>4 YRS 01/30/2019 Family History Medical History Relation Name Comments No Known Problems Father Alcohol abuse Maternal Uncle 1 Alcohol abuse Maternal Uncle 2 No Known Problems Mother Relation Name Status Comments Father Alive Maternal Uncle 1 Maternal Uncle 2 Mother Alive Social History Tobacco Use Types Packs/Day Years Used Date Smoking Tobacco: Never Smokeless Tobacco: Never Alcohol Use Standard Drinks/Week Comments Yes 0 (1 standard drink = 0.6 oz pure alcohol) drinking daily, 1/2 gallon of vodka will last 3-4 days, daily drinking x [address] [facility] Utilities Answer Date Recorded In the past 12 months has [employer], gas, oil, or water [employer] threatened to shut off services in your home? No 03/27/2024 AUDIT-C Answer Date Recorded Q1: How often do you have a drink containing alcohol? 4 or more times a week 03/26/2024 Q2: How many drinks containi ng alcohol do you have on a typical day when you are drinking? 3 or 4 Q3: How often do you have si x or more drinks on one occasion? Less than monthly 03/26/2024 Overall Financial Resource Strain (CARDIA) Answe r Date Recorded How hard is it for you to pa y for the very basics like food, housing, medical care, and heating? Not very hard 03/27/2024 [facility] Occupat ional Health - Occupational Stress Questionnaire Answer Date Recorded Do you feel stress - tense, restless, nervous, or anxious, or unable to sleep at night because your mind is troubled all the time - these days? To some extent 03/27/2024 Exercise Vital Sign Answer Date Recorde d On average, how many days pe r week do you engage in moderate to strenuous exercise (like a brisk walk)? 0 days 03/27/2024 On average, how many minutes do you engage in exercise at this level? 0 min 03/27/2024 Hunger Vital Sign Answer Date Recorded Within the past 12 months, y ou worried that your food would run out before you got the money to buy more. Never true 03/27/20 24 Within the past 12 months, t he food you bought just didn't last and you didn't have money to get more. Never true 03/27/2024 PRAPARE - Transportation Answer Date Re corded In the past 12 months, has l ack of transportation kept you from medical appointments or from getting medications? No 09/2023 In the past 12 months, has l ack of transportation kept you from meetings, work, or from getting things needed for daily living? No 03/27/2024 Abuse Screen Answer Date Recorded Feels Unsafe at Home or Work/School no 03/26/2024 Feels Threatened by Someone no 08/2023 Does Anyone Try to Keep You From Having Contact with Others or Doing Things Outside Your Home? no 03/26/2024 Physical Signs of Abuse Present no 03/26/2024 Housing Stability Answer Date Recorded Current Living Arrangements apartment 09/2023 Potentially Unsafe Housing Conditions none 03/27/2024 Family and Community Support Answer Zia e Recorded If for any reason you need h elp with day-to-day activities such as bathing, preparing meals, shopping, managing finances, etc., do you get the help you need? I get all the help I need 03/27/2024 How often do you feel lonely or isolated from those around you? Sometimes 03/27/2024 Employment Answer Date Recorded Do you want help finding or keeping work or a job? I do not need or want help 03/27/2024 Disabilities Answer Date Recorded Difficulty Concentrating, Remembering or Making Decisions no 03/26/2024 Difficulty Managing Errands Independently yes 03/26/2024 Education Answer Date Recorded Do you want help with school or training? For example, starting or completing job training or getting a high school diploma, GED or equivalent Patient declined 03/27/2024 Preferred Language Latvian 03/27/2024 PHQ-2 Answer Date Recorded Patient Health Questionnaire-2 Score 2 03/27/2024 Sex and Gender Information Value Date Recorded Sex Assigned at Not on file Legal Sex Male 12:45 PM EDT Gender Identity Not on file Sexual Orientation Not on file Last Filed Vital Signs Vital Sign Reading Time Taken Comments Blood Pressure 143/103 04/02/2024 8:00 AM EST Pulse 94 04/02/2024 8:00 AM EST Temperature 36.3 C (97.4 F) 04/02/2024 8:00 AM EST Respiratory Rate 16 04/02/2024 8:00 AM EST Oxygen Saturation 96% 04/02/2024 8:00 AM EST Inhaled Oxygen Concentration - - Weight 47.3 kg (104 lb 4.8 oz) 03/26/2024 8:58 P M EST Height 167.6 cm (5' 6 ) 03/26/2024 3:47 PM EST Body Mass Index 16.83 03/26/2024 3:47 PM EST Plan of Treatment Health Maintenance Due Date Last Done Comments TDAP/TD VACCINES (1 - Tdap) 1984 COLOGUARD 2010 COLON CANCER SCREENING 5 YEA R SIGMOIDOSCOPY 2010 [address] COLONOGRAPHY 2010 FIT Testing (1 year) 2010 Pneumococcal Vaccine 50+ (1 of 1 - PCV) 2015 ZOSTER VACCINE (1 of 2) 2015 ANNUAL WELLNESS VISIT 12/10/2018 HEPATITIS C SCREENING 12/10/2018 INFLUENZA VACCINE 11/20/2024 01/30/2019 LIPID PANEL 02/20/2025 02/21/2024, 01/06/2022 FECAL OCCULT BLOOD TEST 03/29/2025 03/29/2024, 03/26 COLONOSCOPY 03/30/2034 03/30/2024, 03/30/2024 COLORECTAL CANCER SCREENING 03/30/2034 Procedures Procedure Name Priority Date/Time Associated Diagnosis Comments COLONOSCOPY 03/30/2024 2:47 PM EST OCCULT BLOOD X 1, STOOL Routine 03/29/2024 10:32 AM EST LIPID PANEL Urgent 02/21/2024 3:30 AM EDT from Last 3 Months or Most Recently Relevant to Health Maintenance Results * Colonoscopy (03/30/2024 2:47 PM EST) Adrian Trujillo MD INTERFACE NEEDS Final Result * (ABNORMAL) Occult Blood X 1, Stool - Stool, Per Rectum (03/29/2024 10:32 AM EST) Fecal Occult Blood Positive( A) Negative DISK DIFFUSION 03/29/2024 12:24 PM EST [facility] Stool Specimen from rectum / Unknown Collection / Unknown 03/29/2024 10:32 AM EST 03/29/2024 11:29 AM EST Raheem Crenshaw MD BODY FLUIDS AND STOOLS ORDERA BLES Final Result [facility]
[address] [place] [address], * (ABNORMAL) Lipid Panel (02/21/2024 3:30 AM EDT) Total Cholesterol 309(H) 0 - 200 mg/dL 02/21/2024 4:45 AM EDT [facility] Triglycerides 151(H) 0 - 150 mg/dL 02/21/2024 4:45 AM EDT [facility] HDL Cholesterol 120(H) 40 - 60 mg/dL 02/21/2024 4:45 AM EDT [facility] LDL Cholesterol 163(H) 0 - 100 mg/dL 02/21/2024 4:45 AM EDT [facility] VLDL Cholesterol 26 5 - 40 mg/dL 02/21/2024 4:45 AM EDT [facility] LDL/HDL Ratio 1.32 02/21/2024 4:45 AM EDT [facility] Blood Venipuncture / Unknown 02/21/2024 3:30 AM EDT 02/21/2024 4:15 AM EDT Narrative [facility] - 02/21/2024 4:45 AM EDT Cholesterol Reference Ranges (U.S. Department of Health and Human Services ATP III Classifications) Desirable <200 mg/dL Borderline High 200-239 mg/dL High Risk >240 mg/dL Triglyceride Reference Ranges (U.S. Department of Health and Human Services ATP III Classifications) Normal <150 mg/dL Borderline High 150-199 mg/dL High 200-499 mg/dL Very High >500 mg/dL HDL Reference Ranges (U.S. Department of Health and Human Services ATP III Classifications) Low <40 mg/dl (major risk factor for CHD) High >60 mg/dl ('negative' risk factor for CHD) LDL Reference Ranges (U.S. Department of Health and Human Services ATP III Classifications) Optimal <100 mg/dL Near Optimal 100-129 mg/dL Borderline High 130-159 mg/dL High 160-189 mg/dL Very High >189 mg/dL Lisbeth Cartwright APRN LAB BLOOD ORDERABLE S Final Result [facility]
[address] [place] [address], from Last 3 Months or Most Recently Relevant to Health Maintenance Insurance Advance Directives * CPR (Attempt to Resuscitate) (Latest Code Status on File) Date Activated Date Inactivated Comments 03/26/2024 8:32 PM 04/02/2024 1:48 PM Question Answer Comments Code Status (Patient has no pulse and is not breathing): CPR (Attempt to Resuscitate) Medical Interventions (Patie nt has pulse or is breathing): Full Support Level Of Support Discussed With: Patient * CPR (Attempt to Resuscitate) Date Activated Date Inactivated Comments 02/21/2024 1:23 AM 02/25/2024 3:15 PM Question Answer Comments Code Status (Patient has no pulse and is not breathing): CPR (Attempt to Resuscitate) Medical Interventions (Patie nt has pulse or is breathing): Full Support * CPR (Attempt to Resuscitate) Date Activated Date Inactivated Comments 12/21/2023 2:11 AM 12/23/2023 2:47 PM Question Answer Comments Code Status (Patient has no pulse and is not breathing): CPR (Attempt to Resuscitate) Medical Interventions (Patie nt has pulse or is breathing): Full Support * CPR (Attempt to Resuscitate) Date Activated Date Inactivated Comments 01/25/2019 11:10 PM 01/30/2019 8:17 PM Question Answer Comments Code Status (Patient has no pulse and is not breathing): CPR (Attempt to Resuscitate) Medical Interventions (Patie nt has pulse or is breathing): Full Care Teams Dairy Equipment Repairer Relationship Specialty Start Date End Date Karolina Jarrell APRN PCP - General Nurse Practitioner 04/06/24
--- OUTSIDE RECORDS SUMMARY | 2025-02-04 14:25 | XMS_ITS | Encounter Summary ---
Author Organization Healthcare Address [address] [place] [address] Care Team Providers Care Tax Adjuster Name Role Phone Darin Monreal MD Primary Care Provider [phone] Eitan Mitchell MD Unavailable [phone] Vinh Henry MD Unavailable [phone] Melyssa Kwan MD Unavailable [phone] Encounter Details Date Type Department Care Team (Late st Contact Info) Description 03/26/2024 Lab Requisition [facility] [address] [place] [address] Esther Warren MD [address] [place], [place] [id number] Encounter for general adult medical examination without [...] drink first t melissa in the morning (EYE-REFRIGERATED CARGO CLERK) to steady your nerves or to get [...] 159(H) <10 mg/dL 03/27/2024 3:00 AM EST [facility] Blood Venous blood specimen / Unknown 03/26/2024 9:15 PM EST 03/26/2024 11:18 PM EST Narrative [facility] - 03/27/2024 3:00 AM EST Test performed by Gas Chromatography at the [facility]. This test was developed and its performance characteristics determined by [facility]. It has not been cleared or approved by the FDA.The laboratory is regulated under CLIA as qualified to perform high-complexity testing. This test is used for clinical purposes only. us Esther Warren MD LAB BLOOD ORDERABLES Final Resul t [facility] [address] [place] [address] * Ethylene Glycol Plasma (03/26/2024 9:15 PM EST) Ethylene Glycol, Plasma <5 <5 mg/dL 03/26/2024 11:44 PM EST [facility] Blood Venous blood specimen / Unknown 03/26/2024 9:15 PM EST 03/26/2024 11:18 PM EST Narrative [facility] - 03/26/2024 11:44 PM EST This test was developed and its performance characteristics determined by [facility]. It has not been cleared or approved by the FDA. The laboratory is regulated under CLIA as qualified to perform high-complexity testing. This test is used for clinical purposes. Enzymatic Assay: Performed on [email or web address]. us Esther Warren MD LAB BLOOD ORDERABLES Final Resul t [facility] [address] [place] [address] documented in this encounter Visit Diagnoses Diagnosis Encounter for general adult medical examination without abnormal findings documented in this encounter Additional Health Concerns Assessment Noted Time PHQ-9 Depression Total Score: 0 10/21/19 21 1:00 PM EDT A fall risk assessment has been complete d for the patient 10/15/2022 11:48 AM EDT documented as of this encounter Care Teams Tax Adjuster Relationship Specialty Start Date End Date Darin Monreal MD [address] [place] [address] PCP - General 10/20/20 Eitan Mitchell MD [address] [place] [address] Consulting Physician Gastroenterology 04/03/22 Vinh Henry MD [address] [place] [address] Consulting Physician Cardiothoracic Surgery 04/03/22 Melyssa Kwan MD [address] [place] [phone] Resident Neurology 04/24/22 03/26/24 documented as of this encounter
--- OUTSIDE RECORDS SUMMARY | 2025-02-04 14:27 | XMS_ITS | Encounter Summary ---
Author Organization [employer] ([place], [place], [place], [place]) Address [address] [place] [address] Care Team Providers Care Rooming House Inspector Name Role Phone [facility], [facility] Primary Care Provider [facility] Primary Care Provider Encounter Details Date Type Department Care Team (Late st Contact Info) Description 01/04/2019 Transcribed Document [facility] Radiology [address] [phone] Akshat Magana MD [address] [place] [address] Social History Tobacco Use Types Packs/Day Years Used Date Smoking Tobacco: Never Assessed Sex and Gender Information Value Date Recorded Sex Assigned at Not on file Legal Sex Male 5:22 PM CDT Gender Identity Not on file Sexual Orientation Not on file documented as of this encounter Miscellaneous Notes * Cerner Conversion Note - Akshat Magana MD - 01/04/2019 6:47 PM EDT Patient: PROSPER MILLS Age: 53 Years Sex: Male : 1965 Chief Complaint Call withdraw Alcohol withdrawal Coffee ground emesis Primary Care Provider JUAN MIGUEL OROZCO RN History of Present Illness 53-year-old gentleman appears much older than the stated age presents to [facility] in [facility] with 2 day history of nausea and [...] was yesterday. Apparently he [facility] and had to be brought over to [facility] because of seizures. He was given [...] rag on his forehead is tachycardic on licensed loan officer assistant in the ICU Review of Systems Constitutional: [...] alert, and oriented X3, CN II-XII intact]. Kyle, anxious Eye: [PERRL, EOMI, normal conjuctiva]. HENT: [...] of this critical care patient transferred from [facility] in [facility] had a long conversation with the ER doctor there as well as her transfer center before the patient even got here. Unfortunately he does have acute GI bleed as well as acute renal failure, obvious alcohol withdrawal, as well as what appears to be seizure disorder. Interestingly he states that he was started on some medication for seizures by [facility] a month or 2 ago but [...] + Sodium Chloride 0.9% intravenous, IntraVENous, Inj, [id number], Administer over 10.1 Hour(s), order duration: 3 [...] on filedocumented in this encounter Care Teams Rooming House Inspector Relationship Specialty Start Date End Date [facility], [facility] [place] [address] PCP - General 01/05/25 01/05/25 [facility] [place] [address] PCP - General 02/02/25 documented as of this encounter
--- OUTSIDE RECORDS SUMMARY | 2025-02-04 14:27 | XMS_ITS | Encounter Summary ---
Author Organization [employer] ([place], [place], [place], [place]) Address [address] [place] [address] Care Team Providers Care Crusher And Blender Operator Name Role Phone [facility] Connection, Find-A-Doc Primary Care Provider [facility], Find-A-Doc Primary Care Provider Encounter Details Date Type Department Care Team (Late st Contact Info) Description 01/04/2019 Transcribed Document [facility] [place] [facility] [place] [address] ProviderMary Kate MD [address] [place] [address] Social History Tobacco Use Types Packs/Day Years Used Date Smoking Tobacco: Never Assessed Sex and Gender Information Value Date Recorded Sex Assigned at Not on file Legal Sex Male 5:22 PM CDT Gender Identity Not on file Sexual Orientation Not on file documented as of this encounter Miscellaneous Notes * Cerner Conversion Note - Mary Kate Cardenas MD - 01/04/2019 6:22 PM CDT Provider Notification Entered On: 01/04/2019 18:23 EDT Performed On: 01/04/2019 18:22 EDT by ASHLEIGH WADE, Rn Provider Notification Provider Response : No new orders ASHLEIGH WADE, Moisés - 01/04/2019 18:23 EDT Electronically signed by Chava [facility] Conversion Bend Up Cerner at 08/08/2022 11:11 PM CDT documented in this encounter Plan of Treatment Not on file documented as of this encounter Visit Diagnoses Not on filedocumented in this encounter Care Teams Crusher And Blender Operator Relationship Specialty Start Date End Date [facility] [place], Find-A-Doc [facility] [place] [address] PCP - General 01/05/25 01/05/25 [facility] [place], Find-A-Doc [facility] [place] [address] PCP - General 02/02/25 documented as of this encounter
--- OUTSIDE RECORDS SUMMARY | 2025-02-04 14:27 | XMS_ITS | Encounter Summary ---
Author Organization [employer] ([place], [place], [place], [place]) Address [address] [place] [address] Care Team Providers Care Ferryboat Operator Cable Name Role Phone [facility], Find-A-Doc Primary Care Provider [facility]Doc Primary Care Provider Encounter Details Date Type Department Care Team (Late st Contact Info) Description 01/05/2019 Transcribed Document [facility] [place] [facility] [place] [address] ProviderMary Kate MD [address] [place] [id number] Social History Tobacco Use Types Packs/Day Years Used Date Smoking Tobacco: Never Assessed Sex and Gender Information Value Date Recorded Sex Assigned at Not on file Legal Sex Male 5:22 PM CDT Gender Identity Not on file Sexual Orientation Not on file documented as of this encounter Miscellaneous Notes * Cerner Conversion Note - Mary Kate ProviderMD - 01/05/2019 9:24 AM CDT Patient: PROSPER MILLS Age: 53 years Sex: Male : 1965 Associated Diagnoses: None Author: JAYLENE PRIDE, Neurology Basic Information Source of history: Self. Chief Complaint Seizure History of Present Illness 01/05/19 Neurology Consult - Mr. Prosper Mills presented to the ED with 2 [...] 2 Gram, 4 mL, 100 mL/Hr, IntraVENous, [id number] pantoprazole 40 mg + Sodium Chloride 0.9% [...] 1,000 mL 2 Gram 4 mL, IntraVENous, [id number] metoclopramide 10 mg/2 mL inj 10 mg [...] list: All Problems Alcoholism / SNOMED CT 85452505 / Confirmed Depression / SNOMED CT 25407219 / Confirmed Acid reflux / SNOMED CT 235087658 / Confirmed Hiatal hernia / SNOMED CT 428094040 / Confirmed History of obstructive sleep apnea / IMO 05135881 / Confirmed Hyperlipidemia / SNOMED CT 99384796 / Confirmed Hypertension / SNOMED CT 3813325754 / Confirmed, Active Problems (7) Acid reflux [...] Labs (Last four charted values) WBC 4.9 (SEP 16) H 10.4 (SEP 15) HB L 10.7 (SEP 16) L 11.5 (SEP 16) L 12.7 (SEP 15) HCT L [...] (SEP 16) H 0.076 (SEP 15) . LABS [...] Patient has pacemaker: No. Electronically signed by [facility] Rn Cerner at 08/08/2022 11:25 PM CDT documented in this encounter Plan of Treatment Not on file documented as of this encounter Visit Diagnoses Not on filedocumented in this encounter Care Teams Ferryboat Operator Cable Relationship Specialty Start Date End Date [facility], Find-A-Doc [facility] [place] [address] PCP - General 01/05/25 01/05/25 [facility], Find-A-Doc [facility] [place] [address] PCP - General 02/02/25 documented as of this encounter
--- OUTSIDE RECORDS SUMMARY | 2025-02-04 14:27 | XMS_ITS | Encounter Summary ---
Author Organization [employer] ([place], [place], [place], [place]) Address [address] [place] [address] Care Team Providers Care Parts Person Name Role Phone [facility] Connection, Find-A-Doc Primary Care Provider [facility], Find-A-Doc Primary Care Provider Encounter Details Date Type Department Care Team (Late st Contact Info) Description 01/05/2019 Transcribed Document [facility] [place] [facility] [place] [address] ProviderMary Kate MD [address] [place] [address] Social History Tobacco Use Types Packs/Day Years Used Date Smoking Tobacco: Never Assessed Sex and Gender Information Value Date Recorded Sex Assigned at Not on file Legal Sex Male 5:22 PM CDT Gender Identity Not on file Sexual Orientation Not on file documented as of this encounter Miscellaneous Notes * Cerner Conversion Note - Mary Kate ProviderMD - 01/05/2019 5:00 PM CDT Chart Check - Review Order Profile Entered On: 01/05/2019 16:34 EDT Performed On: 01/05/2019 17:00 EDT by Addie Dozier RN Chart Check Powerplans Initiated/Discontinued as Appropriate : Yes All Active Orders Reviewed : Yes Addie Dozier RN - 01/05/2019 16:34 EDT Electronically signed by Jaron Larsen Conversion Assistant Women'S Soccer Coach Carlitos at 08/08/2022 11:12 PM CDT documented in this encounter Plan of Treatment Not on file documented as of this encounter Visit Diagnoses Not on filedocumented in this encounter Care Teams Parts Person Relationship Specialty Start Date End Date [facility] [place], Find-A-Doc [facility] [place] [address] PCP - General 01/05/25 01/05/25 [facility] [place], Find-A-Doc [facility] [place] [address] PCP - General 02/02/25 documented as of this encounter
--- OUTSIDE RECORDS SUMMARY | 2025-02-04 14:27 | XMS_ITS | Encounter Summary ---
Author Organization [employer] ([place], [place], [place], [place]) Address [address] [place] [address] Care Team Providers Care Propeller Engineer Name Role Phone [facility] Connection, Find-A-Doc Primary Care Provider [facility] Connection, Find-A-Doc Primary Care Provider Encounter Details Date Type Department Care Team (Late st Contact Info) Description 01/05/2019 Transcribed Document [facility] [place] Family Medicine [address] [place] [address] ProviderMary Kate MD [facility] [place] [address] Social History Tobacco Use Types Packs/Day Years Used Date Smoking Tobacco: Never Assessed Sex and Gender Information Value Date Recorded Sex Assigned at Not on file Legal Sex Male 5:22 PM CDT Gender Identity Not on file Sexual Orientation Not on file documented as of this encounter Miscellaneous Notes * Cerner Conversion Note - Mary Kate Cardenas MD - 01/05/2019 11:43 AM CDT UM Authorization Entered On: 01/05/2019 11:43 EDT Performed On: 01/05/2019 11:43 EDT by BRENDA DUFF Rn-Utilization Review Primary Insurance Authorization Authorization and Policy Numbers : Insurance 1 Health Plan: [place] Medicaid Policy Number: [id number] Authorization Number: Insurance Primary Name : [place] Medicaid Authorization Status-Primary : Awaiting callback Reference Number-Primary : [id number] Authorized Service Begin Date-Primary : 01/04/2019 EDT Authorization Comments-Primary : Auth initiated on [employer]. Clinicals faxed via [employer]. Historical Authorization Comments-Primary : No Authorization Comments Found BRENDA DUFF Rn-Utilization Review - 01/05/2019 11:43 EDT documented in this encounter Plan of Treatment Not on file documented as of this encounter Visit Diagnoses Not on filedocumented in this encounter Care Teams Propeller Engineer Relationship Specialty Start Date End Date [facility] [place], Find-A-Doc [facility] [place] [place] [address] PCP - General 01/05/25 01/05/25 [facility] [place], Find-A-Doc [facility] [place] [address] PCP - General 02/02/25 documented as of this encounter
--- OUTSIDE RECORDS SUMMARY | 2025-02-04 14:27 | XMS_ITS | Encounter Summary ---
Author Organization [employer] ([place], [place], [place], [place]) Address [address] [place] [address] Care Team Providers Care Method Consultant Name Role Phone [facility] Connection, Find-A-Doc Primary Care Provider [facility] Connection, Find-A-Doc Primary Care Provider Encounter Details Date Type Department Care Team (Late st Contact Info) Description 01/05/2019 Transcribed Document [facility] [address] ProviderMary Kate MD [address] [place] [address] Social History Tobacco Use Types Packs/Day [...] Type, OT : Treatment Note PB PACKER OTR/Viet - 01/08/2019 9:55 EDT Patient Orders : Order Date Order Ordering 01/04/2019 17:19 OT Evaluation and Treatment Ordered By: ASHLEY MAGANA MD 01/05/2019 11:32 Occupational Therapy Additional Tx Ordered By: Active Diagnoses : 01/05/2019 12:00 Alcohol dependence with withdrawal, unspecified Admission Date : 01/04/2019 16:47 PB PACKER OTR/L - 01/08/2019 11:51 EDT Assisted by, OT : assistant front office manager (LEGAL COORDINATOR) PB PACKER OTR/L - 01/08/2019 9:55 EDT [...] by pt may be somewhat questionable. PB PCAKER OTR/L - 01/08/2019 9:55 EDT General Status Patient [...] Treatment Time : 23 Minute(s) PB PACKER OTR/L - 01/08/2019 9:55 EDT Intervention Summary BP [...] Diastolic Post-intervention : 83 mmHg PB PACKER OTR/L - 01/08/2019 9:55 EDT Self Care/Home Management, [...] verbal cue for hand placement. PB PACKER OTR/L - 01/08/2019 9:55 EDT Functional Mobility Mobility Grid Bed Scooting : Rehab Complete independence (Comment: scoot to EOB in sitting [PB PACKER OTR/Viet Luque 01/08/2019 11:51 EDT] ) Supine to Sit : Rehab Modified independence (Comment: HOB elevated [PB PACKER OTR/Viet - 01/08/2019 11:51 EDT] ) PB PACKER OTR/L - 01/08/2019 9:55 EDT Functional MobilityComment : [...] demonstration, Needs further teaching PB PACKER OTR/Viet Luque 01/08/2019 11:51 EDT Plan of Care, OT OT Tx Plan/Goals Established w Patient : Yes Plan of Care Comment, OT : Continue with OT POC. PB PACKER OTR/L - 01/08/2019 11:51 EDT Aircraft Power Plant Assembler Goals, OT Other LTG Grid Goal #1 [...] : Continue with OT POC. PB PACKER OTR/L - 01/08/2019 11:51 EDT Pain Assessment Pain Scaled Used : 0-10 Pain scale Pain Score Pre-Intervention : 0 Pain Score During-Intervention : 0 Pain Score Post-Intervention. : 0 PB PACKER OTR/L - 01/08/2019 11:51 EDT Image 1 - Images currently included in the form version of this document have not been included in the text rendition version of the form. Anticipated Discharge Needs, OT/PT Anticipated Discharge to : Other: TBD Recommend Continued Therapy at Discharge : Yes PB PACKER OTR/L - 01/08/2019 11:[address] [facility] OT Charges OT Selfcare/Hm Mgmt Ea 15 Min : 2 PB PACKER OTR/L - 01/08/2019 11:51 EDT Electronically signed by Chava [facility] Conversion Color Blender Cerner at 08/08/2022 11:27 PM CDT documented in this encounter Plan of Treatment Not on file documented as of this encounter Visit Diagnoses Not on filedocumented in this encounter Care Teams Method Consultant Relationship Specialty Start Date End Date [facility] [place], Find-A-Doc [facility] [place] [address] PCP - General 01/05/25 01/05/25 [facility] [place], Find-A-Doc [facility] [place] [address] PCP - General 02/02/25 documented as of this encounter
--- OUTSIDE RECORDS SUMMARY | 2025-02-04 14:27 | XMS_ITS | Encounter Summary ---
Author Organization [employer] ([place], [place], [place], [place]) Address [address] [place] [address] Care Team Providers Care Auto Air Conditioning Installer Name Role Phone [facility] Connection, Find-A-Doc Primary Care Provider [facility] Connection, Find-A-Doc Primary Care Provider Encounter Details Date Type Department Care Team (Late st Contact Info) Description 01/04/2019 Transcribed Document [facility] [place] Family [place] [facility] [place] [address] ProviderMary Kate MD [address] [place] [address] Social History Tobacco Use Types Packs/Day Years Used Date Smoking Tobacco: Never Assessed Sex and Gender Information Value Date Recorded Sex Assigned at Not on file Legal Sex Male 5:22 PM CDT Gender Identity Not on file Sexual Orientation Not on file documented as of this encounter Miscellaneous Notes * Cerner Conversion Note - Mary Kate ProviderMD - 01/04/2019 5:19 PM CDT Education-Diabetes Topics Entered On: 01/04/2019 18:22 EDT Performed On: 01/04/2019 17:19 EDT by ASHLEIGH WADE, Rn Teaching/Learning Assessment Barriers To Learning : None evident ASHLEIGH WADE, Moisés - 01/04/2019 18:22 EDT documented in this encounter Plan of Treatment Not on file documented as of this encounter Visit Diagnoses Not on filedocumented in this encounter Care Teams Auto Air Conditioning Installer Relationship Specialty Start Date End Date [facility] Connection, Find-A-Doc [facility] [place] [address] PCP - General 01/05/25 01/05/25 [facility] [place], Find-A-Doc [facility] [place] [address] PCP - General 02/02/25 documented as of this encounter
--- OUTSIDE RECORDS SUMMARY | 2025-02-04 14:27 | XMS_ITS | Encounter Summary ---
Author Organization [employer] ([place], [place], [place], [place]) Address [address] [place] [address] Care Team Providers Care Rib Knitter Name Role Phone [facility] Connection, Find-A-Doc Primary Care Provider [facility] Connection, Find-A-Doc Primary Care Provider Encounter Details Date Type Department Care Team (Late st Contact Info) Description 01/04/2019 Transcribed Document [facility] [place] [facility] [place] [address] ProviderMary Kate MD [address] [place] [address] Social History Tobacco Use Types Packs/Day Years Used Date Smoking Tobacco: Never Assessed Sex and Gender Information Value Date Recorded Sex Assigned at Not on file Legal Sex Male 5:22 PM CDT Gender Identity Not on file Sexual Orientation Not on file documented as of this encounter Miscellaneous Notes * Cerner Conversion Note - Mary Kate ProviderMD - 01/04/2019 5:19 PM CDT Consult [...] on filedocumented in this encounter Care Teams Rib Knitter Relationship Specialty Start Date End Date [facility] [place] Find-A-Doc [facility] Find-a-Doc [place], [place] [id number] PCP - General 01/05/25 01/05/25 [facility] [place] Find-A-Doc MARTHA [facility] Find-a-Doc [place], [place] [id number] PCP - General 02/02/25 documented as of this encounter
--- OUTSIDE RECORDS SUMMARY | 2025-02-04 14:27 | XMS_ITS | Encounter Summary ---
Author Organization [employer] ([place], [place], [place], [place]) Address [address] [place] [address] Care Team Providers Care Advertising Account Manager Name Role Phone [facility] Connection, Find-A-Doc Primary Care Provider [facility] Connection, Find-A-Doc Primary Care Provider Encounter Details Date Type Department Care Team (Late st Contact Info) Description 01/05/2019 Transcribed Document [facility] [place] [address] ProviderMary Kate MD [address] [place] [id number] Social History Tobacco Use Types Packs/Day Years [...] MD - 01/05/2019 8:34 AM CDT Patient: PROSPER MILLS Age: 53 years Sex: Male : 1965 Associated Diagnoses: None Author: RAZIA LANTIGUA MD-ADEN Basic Information Source of history: Self. Referral source: ASHLEY MAGANA MD. History limitation: None. Chief Complaint Coffee ground emesis. History of Present Illness Dr Magana has asked us to see this patient for complaints of coffee ground emesis. This patient was brought here from [facility] with 2 days of nausea and [...] seizure activity. He had an EGD at [facility] in the last 6 months, reports pending. Per Dr Mcclellan's note he had no varices. Histories Past Medical History: Active Alcohol abuse (28054156) Depression (161430348) GERD - Gastro-esophageal reflux disease (1942572972) Hiatal hernia (543175771) HTN - Hypertension (0898069317) Hyperlipidemia (34675813) Procedure history: egd. Social History Social & [...] 2 Gram, 4 mL, 100 mL/Hr, IntraVENous, [id number] pantoprazole 40 mg + Sodium Chloride 0.9% [...] list: All Problems Hypertension / SNOMED CT 9110234261 / Confirmed Hyperlipidemia / SNOMED CT 95642640 / Confirmed History of obstructive sleep apnea / IMO 97449416 / Confirmed Hiatal hernia / SNOMED CT 593191476 / Confirmed Acid reflux / SNOMED CT 108478934 / Confirmed Depression / SNOMED CT 95975451 / Confirmed Alcoholism / SNOMED CT 25519312 / Confirmed Canceled: No Chronic Problems / [...] EDT Height Source Chart Height Entry Format [place] Height/Length, FRENCH (ft) 5 ft Height/Length FRENCH 7 Inch CLINICALHEIGHT 170.18 cm [place] Body Weight 65 kg Weight Source Bed scale Weight Entry Format [place] Weight Liberian lb 164.8 lb CLINICALWEIGHT 74.91 kg Body Surface Area (BSA) 1.86 m2 Body Mass Index 25.9 kg/m2 HI , Vitals Signs (last 24 hrs) Last Charted Minimum Maximum Temp 98.4 (DEC 16 04:00) 98.4 (JAN 05 04:00) 98.1 (JAN [...] 04 20:15) 100.00 (JAN 04 17:24) General: No acute distress. Appearance: Well [...] No tenderness, No deformity. Integumentary: Warm, Dry, [place], No rash. Integumentary exam: Face, Chest, Arm, Abdomen, Leg. Neurologic: Alert, Oriented, No focal deficits. Orientation: To person, To place, To time. Psychiatric: Cooperative, He is drowsey. Review / Management Results review: Labs (Last four charted values) WBC H 10.4 (SEP 15) HB L 11.5 (SEP 16) L 12.7 (SEP [...] We are awaiting the EGD report from [facility] 6 months ago. Patient undergoing both EEG and MRI today for evaluation of seizures. We will defer EGD until patient cleared by neurology. Will follow. documented in this encounter Plan of Treatment Not on file documented as of this encounter Visit Diagnoses Not on filedocumented in this encounter Care Teams Advertising Account Manager Relationship Specialty Start Date End Date [facility] [place], Find-A-Doc [facility] [place] [address] PCP - General 01/05/25 01/05/25 [facility] [place], Find-A-Doc [facility] [place] [address] PCP - General 02/02/25 documented as of this encounter
--- OUTSIDE RECORDS SUMMARY | 2025-02-04 14:27 | XMS_ITS | Encounter Summary ---
Author Organization [employer] ([place], [place], [place], [place]) Address [address] [place] [address] Care Team Providers Care Electrotyper Helper Name Role Phone [facility] Connection, Find-A-Doc Primary Care Provider [facility] Connection, Find-A-Doc Primary Care Provider Encounter Details Date Type Department Care Team (Late st Contact Info) Description 01/05/2019 Transcribed Document [facility] [place] Family Medicine [facility] [place] [address] ProviderMary Kate MD [address] [place] [address] Social History Tobacco Use Types Packs/Day Years Used Date Smoking Tobacco: Never Assessed Sex and Gender Information Value Date Recorded Sex Assigned at Not on file Legal Sex Male 5:22 PM CDT Gender Identity Not on file Sexual Orientation Not on file documented as of this encounter Miscellaneous Notes * Cerner Conversion Note - Mary Kate ProviderMD - 01/05/2019 2:00 AM CDT Defense Attorney Details Entered On: 01/05/2019 11:47 EDT Performed [...] Not Appropriate Arterial Line : No Addie Dozier RN - 01/05/2019 11:46 EDT documented in this encounter Plan of Treatment Not on file documented as of this encounter Visit Diagnoses Not on filedocumented in this encounter Care Teams Electrotyper Helper Relationship Specialty Start Date End Date [facility] [place], Find-A-Doc [facility] [place] [address] PCP - General 01/05/25 01/05/25 [facility] [place], Find-A-Doc [facility] [place] [address] PCP - General 02/02/25 documented as of this encounter
--- OUTSIDE RECORDS SUMMARY | 2025-02-04 14:27 | XMS_ITS | Encounter Summary ---
Author Organization [employer] ([place], [place], [place], [place]) Address [address] [place] [address] Care Team Providers Care Rn On Site Name Role Phone [facility] Connection, Find-A-Doc Primary Care Provider [facility] Connection, Find-A-Doc Primary Care Provider Encounter Details Date Type Department Care Team (Late st Contact Info) Description 01/05/2019 Transcribed Document [facility] [place] [facility] [place] [address] ProviderMary Kate MD [address] [place] [address] Social History Tobacco Use Types Packs/Day [...] Event Details : Procedure completed Sheila Patten Neurochapinostic Adolfo - 01/05/2019 14:17 EDT documented in this encounter Plan of Treatment Not on file documented as of this encounter Visit Diagnoses Not on filedocumented in this encounter Care Teams Rn On Site Relationship Specialty Start Date End Date [facility] [place], Find-A-Doc [facility] [place] [address] PCP - General 01/05/25 01/05/25 [facility] [place], Find-A-Doc [facility] [place] [address] PCP - General 02/02/25 documented as of this encounter
--- OUTSIDE RECORDS SUMMARY | 2025-02-04 14:27 | XMS_ITS | Encounter Summary ---
Author Organization [employer] ([place], [place], [place], [place]) Address [address] [place] [address] Care Team Providers Care Tractor Trailer Driver Name Role Phone [facility]Doc Primary Care Provider [facility] Primary Care Provider Encounter Details Date Type Department Care Team (Late st Contact Info) Description 01/04/[address] [facility] [place] [address] [place] [address] ProviderMary Kate MD [address] [place] [address] Social History Tobacco Use Types Packs/Day [...] Visit Type, PT : Initial evaluation Dean Delgado, Physical Therapist - 01/05/2019 13:16 EDT Patient [...] Upper Extremity Comment : 3+/5 BUEs Dean Delgado, Physical Therapist - 01/05/2019 14:00 EDT Lower Extremity RLE Active ROM : Impaired Right LE Strength : Impaired LLE Active ROM : Impaired Left LE Strength : Impaired Lower Extremity Comment : 3-/5 BLEs, limited BLE ROM about 50% of normal Dean Delgado, Physical Therapist - 01/05/2019 14:00 EDT Functional Mobility Mobility Grid Supine to Sit : Rehab Moderate assistance (Comment: x 2 [Dean Delgado, Physical Therapist - 01/05/2019 14:00 EDT] ) [...] Delgado Physical Therapist - 01/05/2019 14:00 EDT Longterm Goals Other PT LTG Grid Goal #1 Goal #2 Other : Pt will perform supine to sit with min x 1 for improvement in functional task training. Pt will perform 12-15 reps BLE ther-ex for improvement in ROM/strength. Date to Meet : 01/12/2019 EDT 01/12/2019 EDT Goal Status : Initial goal Initial goal Dean Delgado Physical Therapist - 01/05/2019 14:00 EDT Dean [...] on filedocumented in this encounter Care Teams Tractor Trailer Driver Relationship Specialty Start Date End Date [facility]Doc [facility] [place] [address] PCP - General 01/05/25 01/05/25 [facility] Find-A-Doc [facility] [place] [address] PCP - General 02/02/25 documented as of this encounter
--- OUTSIDE RECORDS SUMMARY | 2025-02-04 14:27 | XMS_ITS | Encounter Summary ---
Author Organization [employer] ([place], [place], [place], [place]) Address [address] [place] [address] Care Team Providers Care Private Pilot Name Role Phone [facility], Find-A-Doc Primary Care Provider [facility], Find-A-Doc Primary Care Provider Encounter Details Date Type Department Care Team (Late st Contact Info) Description 01/05/2019 Transcribed Document [facility] Radiology [address] [id number] Akshat Magana MD [address] [place] [address] Social History Tobacco Use Types Packs/Day Years Used Date Smoking Tobacco: Never Assessed Sex and Gender Information Value Date Recorded Sex Assigned at Not on file Legal Sex Male 5:22 PM CDT Gender Identity Not on file Sexual Orientation Not on file documented as of this encounter Miscellaneous Notes * Cerner Conversion Note - Akshat Magana MD - 01/05/2019 8:14 AM EDT Patient: PROSPER MILLS Age: 53 years Sex: Male : 1965 Associated Diagnoses: None Author: AKSHAT MAGANA MD Subjective Chief complaint. Saturday, January 05, 2019. Patient required multiple doses of Ativan overnight and she is oriented to name, date of , age, 2019, Pres. Trump, [facility] however he's definitely agitated and confused. [...] Problem list: Medical Alcoholism / SNOMED CT 97379737 / Confirmed History of obstructive sleep apnea / IMO 44312081 / Confirmed, Active Problems (7) Acid reflux [...] 2 Gram, 4 mL, 100 mL/Hr, IntraVENous, [id number] pantoprazole 40 mg + Sodium Chloride 0.9% [...] 1,000 mL 2 Gram 4 mL, IntraVENous, [id number] metoclopramide 10 mg/2 mL inj 10 mg [...] Maximum Temp 98.4 (DEC 16 04:00) 98.4 (DEC 16 04:00) 98.1 (JAN 04 20:) Mon HR 118 (JAN 05 08:23) 118 [...] 100.00 (JAN 05 08:23) L 68.00 (JAN 04:) 100.00 (JAN 04 17:24) , Measurements from flowsheet : Measurements 01/04/2019 16:44 EDT Height Source Chart Height Entry Format [place] Height/Length, JAPANESE (ft) 5 ft Height/Length JAPANESE 7 Inch CLINICALHEIGHT 170.18 cm [place] Body Weight 65 kg Weight Source Bed scale Weight Entry Format [place] Weight Samoan lb 164.8 lb CLINICALWEIGHT 74.91 kg Body [...] Cl L 92 (DEC 16) L 84 (SEP 15) CO2 29 (DEC 16) 27 (DEC 15) BUN H 55 (DEC 16) H 61 (SEP 15) Cr H 1.92 (DEC 16) H 2.53 (DEC 15) Glu R H 129 (DEC 16) H 167 (DEC 15) Ca L 7.6 (DEC 16) L 8.0 (DEC 15) Lactic 1.6 (DEC 16) PT 10.0 (DEC 16) INR 1.0 (DEC 16) PTT L 24.4 (DEC 15) AST H 45 (DEC 16) H 46 (SEP 15) ALT 51 (SEP 16) 62 (SEP 15) ALK P 50 (SEP 16) 62 (DEC 15) T Bili 0.5 (SEP 16) 0.6 (SEP 15) PTN 7.2 (SEP 16) 7.7 (SEP 15) ALB 3.4 (DEC 16) 3.7 (DEC 15) Troponin H 0.048 (DEC 16) H 0.076 (SEP 15) . Impression and Plan alcohol withdrawal [...] hemoglobin as well as a total value. [employer] dictation system used. Computer program makes numerous spelling grammar mistakes. If you have any questions or concerns do not hesitate call Dr. Akshat Llamas at cell phone number [phone]. documented in this encounter Plan of Treatment Not on file documented as of this encounter Visit Diagnoses Not on filedocumented in this encounter Care Teams Private Pilot Relationship Specialty Start Date End Date [facility], Find-A-Doc [facility] [place] [address] PCP - General 01/05/25 01/05/25 [facility], Find-A-Doc [facility] [place] [address] PCP - General 02/02/25 documented as of this encounter
--- OUTSIDE RECORDS SUMMARY | 2025-02-04 14:27 | XMS_ITS | Encounter Summary ---
Author Organization [employer] ([place], [place], [place], [place]) Address [address] [place] [address] Care Team Providers Care Early Childhood Worker Name Role Phone [facility], Find-A-Doc Primary Care Provider [facility], Find-A-Doc Primary Care Provider Encounter Details Date Type Department Care Team (Late st Contact Info) Description 01/04/2019 Transcribed Document [facility] [place] Medicine [facility] [place] [address] ProviderMary Kate MD [address] [place] [id number] Social History Tobacco Use Types Packs/Day Years [...] of Admit : No Primary Language : Pitcair[place] Islander Communication Barrier : None Eileen Orantes Rn [...] Level : 46 or > High Risk [place] Fall Interventions : Adequate lighting, Assistive devices [...] Source : Chart Height Entry Format : [place] Height, Feet : 5 ft(Converted to: 152 cm, 60 Inch) Height, Inches : 7 Inch(Converted to: 0 ft 7 Inch, 17.78 cm) Clinical Height : 170.18 cm Weight Source : Bed scale Weight Entry Format : [place] Clinical Dosing Weight : 74.91 kg Weight, Pounds : 164.8 lb Body Surface Area (BSA) : 1.86 m2 Body Mass Index : 25.9 kg/m2 (HI) [place] Body Weight : 65 kg Eileen Orantes [...] Clothing Disposition : Bedside, With patient ASHLEIGH WADEMoisés - 01/04/2019 18:21 EDT documented in this encounter Plan of Treatment Not on file documented as of this encounter Visit Diagnoses Not on filedocumented in this encounter Care Teams Early Childhood Worker Relationship Specialty Start Date End Date [facility] [place] Find-A-Doc [facility] [place] [address] PCP - General 01/05/25 01/05/25 [facility] [place] Find-A-Doc [facility] [place] [address] PCP - General 02/02/25 documented as of this encounter
--- OUTSIDE RECORDS SUMMARY | 2025-02-04 14:27 | XMS_ITS | Encounter Summary ---
Author Organization [employer] ([place], [place], [place], [place]) Address [address] [place] [address] Care Team Providers Care Emergency Medicine Physician Name Role Phone [facility], Find-A-Doc Primary Care Provider [facility]-Doc Primary Care Provider Encounter Details Date Type Department Care Team (Late st Contact Info) Description 01/04/2019 Transcribed Document [facility] [place] Family Medicine [facility] [place] [address] ProviderMary Kate MD [address] [place] [address] Social History Tobacco Use Types Packs/Day Years Used Date Smoking Tobacco: Never Assessed Sex and Gender Information Value Date Recorded Sex Assigned at Not on file Legal Sex Male 5:22 PM CDT Gender Identity Not on file Sexual Orientation Not on file documented as of this encounter Miscellaneous Notes * Cerner Conversion Note - Mary Kate ProviderMD - 01/04/2019 5:00 PM CDT Chart Check - Review Order Profile Entered On: 01/04/2019 18:21 EDT Performed On: 01/04/2019 17:00 EDT by ASHLEIGH WADE, Rn Chart Check Powerplans Initiated/Discontinued as Appropriate : Yes ASHLEIGH WADE, Moisés - 01/04/2019 18:21 EDT Electronically signed by Chava [facility] Conversion Snuff Maker Cerner at 08/08/2022 11:29 PM CDT documented in this encounter Plan of Treatment Not on file documented as of this encounter Visit Diagnoses Not on filedocumented in this encounter Care Teams Emergency Medicine Physician Relationship Specialty Start Date End Date [facility] [place], Find-A-Doc [facility] [place] [address] PCP - General 01/05/25 01/05/25 [facility] [place], Find-A-Doc [facility] [place] [address] PCP - General 02/02/25 documented as of this encounter
--- OUTSIDE RECORDS SUMMARY | 2025-02-04 14:27 | XMS_ITS | Encounter Summary ---
Author Organization [employer] ([place], [place], [place], [place]) Address [address] [place] [address] Care Team Providers Care Rn Lpn Cna Name Role Phone [facility], Find-A-Doc Primary Care Provider [facility], Find-A-Doc Primary Care Provider Encounter Details Date Type Department Care Team (Late st Contact Info) Description 01/05/[address] [facility] [place] Family Medicine [address] [place] [address] ProviderMary Kate MD [address] [place] [address] Social History Tobacco Use Types [...] Policy Numbers : Insurance 1 Health Plan: [place] [employer] Policy Number: [id number] Authorization Number: Insurance Primary Name : [place] [employer] Authorization Status-Primary : Admit approved Reference Number-Primary : [id number] Authorization Number-Primary : [id number] Number of Days Authorized-Primary : 6 Authorized Service Begin Date-Primary : 01/04/2019 EDT Authorized Service End Date-Primary : 01/08/2019 EDT Authorization Comments-Primary : [place] [employer] approved per Miguel for inpt 6 days Historical Authorization Comments-Primary : Comment 1: Auth initiated on [employer]. Clinicals faxed via [employer]. (BRENDA DUFF, Rn-Utilization Review 01/05/2019 11:43) LUIS SOSA RN-Utilization Review - 01/05/2019 15:59 EDT Electronically signed by Chava [facility] Conversion [address] Bailiff Cerner at 08/08/2022 11:09 PM CDT documented in this encounter Plan of Treatment Not on file documented as of this encounter Visit Diagnoses Not on filedocumented in this encounter Care Teams Rn Lpn Cna Relationship Specialty Start Date End Date [facility], Find-A-Doc [facility] [place] [address] PCP - General 01/05/25 01/05/25 [facility], Find[facility]A-Doc [facility] [place] [address] PCP - General 02/02/25 documented as of this encounter
--- OUTSIDE RECORDS SUMMARY | 2025-02-04 14:27 | XMS_ITS | Encounter Summary ---
Author Organization [employer] ([place], [place], [place], [place]) Address [address] [place] [address] Care Team Providers Care Finance Broker Name Role Phone [facility], Find-A-Doc Primary Care Provider [facility] Find[facility]Doc Primary Care Provider Encounter Details Date Type Department Care Team (Late st Contact Info) Description 01/04/2019 Transcribed Document [facility] [place] Family Medicine [facility] [place] [address] ProviderMary Kate MD [address] [place] [address] Social History Tobacco Use Types Packs/Day Years Used Date Smoking Tobacco: Never Assessed Sex and Gender Information Value Date Recorded Sex Assigned at Not on file Legal Sex Male 5:22 PM CDT Gender Identity Not on file Sexual Orientation Not on file documented as of this encounter Miscellaneous Notes * Cerner Conversion Note - Mary Kate ProviderMD - 01/04/2019 5:19 PM CDT Education-(VTE) / (DVT) Entered On: 01/04/2019 18:22 EDT Performed On: 01/04/2019 17:19 EDT by ASHLEIGH WADE, Rn Teaching/Learning Assessment Barriers To Learning : None evident ASHLEIGH WADE, Moisés - 01/04/2019 18:22 EDT Electronically signed by Chava [facility] Conversion Pension Examiner Cerner at 08/08/2022 11:32 PM CDT documented in this encounter Plan of Treatment Not on file documented as of this encounter Visit Diagnoses Not on filedocumented in this encounter Care Teams Finance Broker Relationship Specialty Start Date End Date [facility] [place], Find-A-Doc [facility] [place] [address] PCP - General 01/05/25 01/05/25 [facility], Find-A-Doc [facility] [place] [address] PCP - General 02/02/25 documented as of this encounter
--- OUTSIDE RECORDS SUMMARY | 2025-02-04 14:27 | XMS_ITS | Encounter Summary ---
Author Organization [employer] ([place], [place], [place], [place]) Address [address] [place] [address] Care Team Providers Care Blocker Hand Name Role Phone [facility], Find-A-Doc Primary Care Provider Encounter Details Date Type Department Care Team (Latest Contact Info) Description 02/02/2025 Travel Social History Tobacco Use Types Packs/Day Years [...] Never 01/06/2025 How often does anyone, armando mark family and friends, insult or talk down to you? Never 01/06/2025 How often does anyone, armando mark family and friends, threaten you with harm? Never 01/06/2025 How often does anyone, ripkong flores family and friends, scream or curse [...] Do you speak a language other than [place] at [facility]? No 01/06/2025 Do you want help [...] on file documented as of this encounter Plan of Treatment Not on file documented as of this encounter Visit Diagnoses Not on filedocumented in this encounter Care Teams Blocker Hand Relationship Specialty Start Date End Date [facility], Find-A-Doc [facility] [place] [address] PCP - General 02/02/25 documented as of this encounter
--- OUTSIDE RECORDS SUMMARY | 2025-02-04 14:27 | XMS_ITS | Encounter Summary ---
Author Organization [employer] ([place], [place], [place], [place]) Address [address] [place] [address] Care Team Providers Care Meter And Regulator Shop Supervisor Name Role Phone [facility], Find-A-Doc Primary Care Provider [facility], Find-A-Doc Primary Care Provider Encounter Details Date Type Department Care Team (Late st Contact Info) Description 01/04/2019 Transcribed Document [facility] [place] [facility] [address] ProviderMary Kate MD [address] [place] [id number] Social History Tobacco Use Types Packs/Day Years [...] - 01/06/2019 10:42 EDT Electronically signed by Chava [facility] Conversion Fruit Ii Farmworker Cerner at 08/08/2022 11:26 PM CDT documented in this encounter Plan of Treatment Not on file documented as of this encounter Visit Diagnoses Not on filedocumented in this encounter Care Teams Meter And Regulator Shop Supervisor Relationship Specialty Start Date End Date [facility] [place], Find-A-Doc [facility] [place] [address] PCP - General 01/05/25 01/05/25 [facility] [place], Find-A-Doc [facility] [place] [address] PCP - General 02/02/25 documented as of this encounter
--- OUTSIDE RECORDS SUMMARY | 2025-02-04 14:27 | XMS_ITS | Encounter Summary ---
Author Organization [employer] [facility] ([place], [place], [place], [place]) Address [address] [place] [address] Care Team Providers Care Clinical Consultant Name Role Phone [facility], Find-A-Doc Primary Care Provider [facility], Find-A-Doc Primary Care Provider Encounter Details Date Type Department Care Team (Late st Contact Info) Description 01/06/2019 Transcribed Document [facility] Radiology [address] [phone] Akshat Magana MD [address] [place] [address] Social History Tobacco Use Types Packs/Day Years Used Date Smoking Tobacco: Never Assessed Sex and Gender Information Value Date Recorded Sex Assigned at Not on file Legal Sex Male 5:22 PM CDT Gender Identity Not on file Sexual Orientation Not on file documented as of this encounter Miscellaneous Notes * Cerner Conversion Note - Akshat Magana MD - 01/06/2019 8:29 AM EDT Patient: PROSPER MILLS Age: 53 years Sex: Male : 1965 Associated Diagnoses: None Author: AKSHAT MAGANA MD Subjective Chief complaint. Saturday, January 05, 2019. Patient required multiple doses of Ativan overnight and she is oriented to name, date of , age, 2019, Pres. [place], [facility] however he's definitely agitated and confused. An obvious alcohol withdrawal. No nausea vomiting. No chest pain palpitations. No shortness breath coughing wheezing. No additional episodes of coffee-ground emesis awaiting evaluation by GI later this morning for possible EGD. Saturday, ature 2018. Patient actually appears a lot more [...] list: Medical Alcohol abuse / SNOMED CT 97072798 / Confirmed Alcoholism / SNOMED CT 41492716 / Confirmed Depression / SNOMED CT 485310265 / Confirmed GERD - Gastro-esophageal reflux disease / SNOMED CT 1722221298 / Confirmed Hiatal hernia / SNOMED CT 374542552 / Confirmed History of obstructive sleep apnea / IMO 20939766 / Confirmed HTN - Hypertension / SNOMED CT 0444002665 / Confirmed Hyperlipidemia / SNOMED CT 73971614 / Confirmed, Active Problems (13) Acid reflux [...] 2 Gram, 4 mL, 100 mL/Hr, IntraVENous, [id number] pantoprazole 40 mg + Sodium Chloride 0.9% [...] 1,000 mL 2 Gram 4 mL, IntraVENous, [id number] metoclopramide 10 mg/2 mL inj 10 mg [...] 99.2 (DEC 16 20:30) Apical HR 92 (SEP 17 09:23) 92 (SEP 17 09:23) 92 (SEP 17 09:23) Mon HR 106 (SEP 17 10:00) 73 (DEC 17 05:15) 134 (SEP 16 23:30) Resp Rate H 22 (SEP 17 10:00) L 11 (SEP 16 16:00) H 43 (SEP 16 23:30) SBP 135 (SEP 17 10:00) L 85 (DEC 17 07:30) H 161 (DEC 16 23:30) DBP 83 (DEC 17 10:00) L 6 (DEC 16 20:00) 89 (SEP 16 13:18) MAP 103 (SEP 17 10:00) 71 (DEC 17 00:30) 124 (DEC 16 20:00) SpO2 95.00 (DEC 17 10:00) L 89.00 (DEC 17 03:00) 100.00 (DEC 16 12:00) Physical Examination VS/Measurements Vitals Signs (last 24 hrs) Last Charted Minimum Maximum Temp 98.4 (DEC 17 05:08) 98.4 (DEC 17 05:08) 99.2 (DEC 16 20:30) Apical HR 92 (DEC 17 09:23) 92 (DEC 17 09:23) 92 (DEC 17 09:23) Mon HR 106 (SEP 17 10:00) 73 (DEC 17 05:15) 134 (DEC 16 23:30) Resp Rate H 22 (SEP 17 10:00) L 11 (SEP 16 16:00) H 43 (SEP 16 23:30) SBP 135 (SEP 17 10:00) L 85 (DEC 17 07:30) H 161 (SEP 16 23:30) DBP 83 (SEP 17 10:00) L 6 (SEP 16 20:00) 89 (SEP 16 13:18) MAP 103 (SEP 17 10:00) 71 (SEP 17 00:30) 124 (SEP 16 20:00) SpO2 95.00 (DEC 17 10:00) L 89.00 (DEC 17 03:00) 100.00 (DEC 16 12:00) , Measurements from flowsheet : Measurements 01/05/2019 8:00 EDT Height Source Chart Height Entry Format [place] Height/Length, TANZANIAN (ft) 5 ft Height/Length TANZANIAN 7 Inch CLINICALHEIGHT 170.18 cm Routine Weight [...] (Last four charted values) WBC L 3.1 (DEC 17) 4.9 (DEC 16) H 10.4 (DEC 15) HB L 8.6 (DEC 17) L 7.8 (DEC 17) L 8.8 (SEP 16) L 8.7 (SEP 16) HCT L 25.7 (DEC 17) L 23.0 (SEP 17) L 25.8 (SEP 16) L 25.7 (SEP 16) Plt L 69 (DEC 17) L 88 (SEP 16) L 125 (SEP 15) Na 141 (DEC 17) L 133 (SEP 16) L 129 (SEP 15) K L 3.3 (SEP 17) 3.7 (SEP 16) 4.2 (SEP 15) Cl 105 (SEP 17) L 92 (SEP 16) L 84 (SEP 15) CO2 28 (SEP 17) 29 (SEP 16) 27 (SEP 15) BUN H 27 (DEC 17) H 55 (SEP 16) H 61 (SEP 15) Cr 0.95 (SEP 17) H 1.92 (SEP 16) H 2.53 (SEP 15) Glu R 87 (DEC 17) H 129 (SEP 16) H 167 (DEC 15) Ca L 7.5 (DEC 17) L 7.6 (SEP 16) L 8.0 (SEP 15) Lactic 1.6 (SEP 16) PT 10.0 (DEC 16) INR 1.0 (DEC 16) PTT L 24.4 (DEC 15) AST 33 (DEC 17) H 45 (SEP 16) H 46 (DEC 15) ALT 33 (DEC 17) 51 (SEP 16) 62 (DEC 15) ALK P 39 (DEC 17) 50 (SEP 16) 62 (DEC 15) T Bili 0.4 (DEC 17) 0.5 (SEP 16) 0.6 (DEC 15) PTN L 5.9 (DEC 17) 7.2 (SEP 16) 7.7 (DEC 15) ALB L 2.8 (DEC 17) 3.4 [...] a CBC and CMP in the morning. [employer] dictation system used. Computer program makes numerous spelling grammar mistakes. If you have any questions or concerns do not hesitate call Dr. Akshat Llamas at cell phone number [phone]. documented in this encounter Plan of Treatment Not on file documented as of this encounter Visit Diagnoses Not on filedocumented in this encounter Care Teams Clinical Consultant Relationship Specialty Start Date End Date [facility], Find-A-Doc [facility] [place] [address] PCP - General 01/05/25 01/05/25 [facility], Find-A-Doc [facility] [place] [address] PCP - General 02/02/25 documented as of this encounter
--- OUTSIDE RECORDS SUMMARY | 2025-02-04 14:27 | XMS_ITS | Encounter Summary ---
Author Organization [employer] ([place], [place], [place], [place]) Address [address] [place] [address] Care Team Providers Care Rod Finisher Name Role Phone [facility], Find-A-Doc Primary Care Provider [facility], Find-A-Doc Primary Care Provider Encounter Details Date Type Department Care Team (Late st Contact Info) Description 01/05/2019 Transcribed Document [facility] [place] Family Medicine [facility] [place] [address] ProviderMary Kate MD [address] [place] [phone] Social History Tobacco Use Types Packs/Day Years [...] CC1: Pam Moran M.D. Electronically signed by [facility], [facility] Conversion Civil Lawyer Cerner at 08/08/2022 11:27 PM CDT documented in this encounter Plan of Treatment Not on file documented as of this encounter Visit Diagnoses Not on filedocumented in this encounter Care Teams Rod Finisher Relationship Specialty Start Date End Date [facility], Find-A-Doc [facility] [place] [address] PCP - General 01/05/25 01/05/25 [facility], Find-A-Doc [facility] [place] [address] PCP - General 02/02/25 documented as of this encounter
--- OUTSIDE RECORDS SUMMARY | 2025-02-04 14:27 | XMS_ITS | Encounter Summary ---
Author Organization [employer] ([place], [place], [place], [place]) Address [address] [place] [address] Care Team Providers Care [place] Mine Cutting Machine Operator Name Role Phone [facility], Find[facility]A-Doc Primary Care Provider [facility], [facility]Doc Primary Care Provider Encounter Details Date Type Department Care Team (Late st Contact Info) Description 01/04/2019 Transcribed Document [facility] [place] [address] [place] [address] ProviderMary Kate MD [address] [place] [phone] Social History Tobacco Use Types Packs/Day Years [...] RN present RN/PCT Informed Comment : RN yuko'ed to see Treatment End Time : 01/05/2019 10:55 EDT Treatment Time : 23 Minute(s) Actual Treatment Time : 23 Minute(s) CHANTELL WIN OTR/Viet - 01/05/2019 11:23 EDT History and Environment, OT Living Situation, Therapy : Home Patient Lives With : Alone Persons Assisting Patient at Home : Alone Professional Skilled Services : None Persons Providing Information : Patient Home Equipment, Therapy : None Home Setup : One story Stairs : Yes Stair Location(s) : Outside, Other: Outside Stairs, Number of Steps : 1 CHANTELL WIN OTR/Viet - 01/05/2019 11:23 EDT Prior LOF Bathing, OT : Independent Prior LOF Bed Mobility : Independent Prior LOF Upper Body Dressing, OT : Independent Prior LOF Lower Body Dressing, OT : Independent Prior LOF Toileting : Independent Prior LOF Transfer : Independent Prior LOF Grooming, OT : Independent CHANTELL WIN OTR/Viet - 01/05/2019 11:23 EDT Upper Extremity Upper [...] UE Strength Comment : Grossly 3-/5 Hand Sweatband Flanger Test : Mod decreased bilaterally Fine Motor Coordination Impaired : No CHANTELL WIN OTR/Viet - 01/05/2019 11:23 EDT Functional Mobility Mobility Grid Supine to Sit : Rehab Moderate assistance (Comment: x 2 [WINCHANTELL PHILLIPSCHRISTA/Viet 01/05/2019 11:23 EDT] ) Sit to Supine : Rehab Moderate assistance (Comment: x 2 [WINCHANTELL OTR/Viet 01/05/2019 11:23 EDT] ) WINCHANTELL OTR/Viet 01/05/2019 11:23 EDT Functional MobilityComment : Pt not able to attempt standing, walking due to weakness/lethargy CHANTELL WIN OTR/Viet 01/05/2019 11:23 EDT Activity Tolerance, OT Activity Comment : P act. tolerance CHANTELL WIN OTR/Viet 01/05/2019 11:23 EDT Neurological/Sensory Light Touch Response : Intact CHANTELL WIN OTR/Viet 01/05/2019 11:23 EDT Cognition Assessment, OT Orientation : Oriented x 4 Cognition Assessment, OT : Impaired Cognition Impaired, OT : Prompting, standby CHANTELL WIN OTR/Viet 01/05/2019 11:23 EDT Education OT Occupational Therapy Education Grid Activity of Daily Living Training : Verbalizes understanding Functional Mobility Training : Verbalizes understanding, Returns demonstration Home Safety : Verbalizes understanding Precaution/Contraindication : Verbalizes understanding Role of Occupational Therapy : Verbalizes understanding CHANTELL WIN OTR/Viet 01/05/2019 11:23 EDT Teaching/Learning Assessment Barriers To Learning : Acuity of Illness, Desire/Motivation Individuals Taught : Patient Readiness to Learn : Cooperative Baseline Knowledge of Topic : Limited Readiness to Learn : Explanation Learning Style Preferences Patient : None CHANTELL WIN OTR/Viet 01/05/2019 11:23 EDT Indication Assessment, OT Occupational [...] alcoholism/w/d; co-morbidities; questionable level of motivation CHANTELL WIN OTR/Viet 01/05/2019 11:23 EDT Plan of Care, OT [...] Safety education, Therapeutic activities, Therapeutic exercises CHANTELL WIN OTR/Viet - 01/05/2019 11:23 EDT [facility] Goals, OT Other LTG Grid Goal #1 [...] the text rendition version of the form. [place] OT Charges OT Selfcare/Hm Mgmt Ea 15 Min : 1 OT Eval Moderate Complexity : 1 CHANTELL WIN OTR/Viet - 01/05/2019 11:23 EDT documented in this encounter Plan of Treatment Not on file documented as of this encounter Visit Diagnoses Not on filedocumented in this encounter Care Teams Clay [place] Cutting Machine Operator Relationship Specialty Start Date End Date [facility] [place] Find-A-Doc [facility] [place] [address] PCP - General 01/05/25 01/05/25 [facility] [place], [place] [id number] PCP - General 02/02/25 documented as of this encounter
--- OUTSIDE RECORDS SUMMARY | 2025-02-04 14:27 | XMS_ITS | Encounter Summary ---
Author Organization [employer] ([place], [place], [place], [place]) Address [address] [place] [address] Care Team Providers Care Sheet Combining Operator Name Role Phone [facility] Connection, Find-A-Doc Primary Care Provider [facility], Find[facility]A-Doc Primary Care Provider Encounter Details Date Type Department Care Team (Late st Contact Info) Description 01/06/2019 Transcribed Document [facility] [place] [facility] [place] [address] ProviderMary Kate MD [address] [place] [address] [phone] Social History Tobacco Use Types Packs/Day Years Used Date Smoking Tobacco: Never Assessed Sex and Gender Information Value Date Recorded Sex Assigned at Not on file Legal Sex Male 5:22 PM CDT Gender Identity Not on file Sexual Orientation Not on file documented as of this encounter Miscellaneous Notes * Cerner Conversion Note - Mary Kate ProviderMD - 01/06/2019 8:47 AM CDT Patient: PROSPER MILLS Age: 53 years Sex: Male : 1965 Associated Diagnoses: None Author: Margarita Moe, Nurse Pract-Neurology Subjective 01/05/19 Neurology Consult - Mr. Prosper Mills presented to the ED with 2 day history of nausea/vomiting and reportedly had 2 seizures at home. 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 Reportedly drinks 1 gallon of Vodka every 4 days, last drink was 9/14/19. He was seen 1 year ago here [...] 2 Gram, 4 mL, 100 mL/Hr, IntraVENous, [id number] pantoprazole 40 mg + Sodium Chloride 0.9% [...] 1,000 mL 2 Gram 4 mL, IntraVENous, [id number] metoclopramide 10 mg/2 mL inj 10 mg [...] list: All Problems Alcoholism / SNOMED CT 44205679 / Confirmed History of obstructive sleep apnea / IMO 86668625 / Confirmed GERD - Gastro-esophageal reflux disease / SNOMED CT 9551723220 / Confirmed Alcohol abuse / SNOMED CT 38934702 / Confirmed Depression / SNOMED CT 985934883 / Confirmed Hiatal hernia / SNOMED CT 346850520 / Confirmed Hyperlipidemia / SNOMED CT 24421476 / Confirmed HTN - Hypertension / SNOMED CT 6173800117 / Confirmed Acid reflux / SNOMED CT 338312335 / Confirmed Hypertension / SNOMED CT 2201259761 / Confirmed Hiatal hernia / SNOMED CT 467263939 / Confirmed Hyperlipidemia / SNOMED CT 40885123 / Confirmed Depression / SNOMED CT 97852396 / Confirmed, Active Problems (13) Acid reflux [...] EDT Height Source Chart Height Entry Format [place] Height/Length, MACEDONIAN (ft) 5 ft Height/Length MACEDONIAN 7 Inch CLINICALHEIGHT 170.18 cm Routine Weight [...] % LOW Lymph # 0.55 K/uL LOW [place] % 8.8 % [place] # 0.27 K/uL Eos % 0.7 % [...] PHYSICIAN: Not mentioned here. BRIEF HISTORY: Prosper Mills is a 53-year-old, with seizure-like spells [...] Follow-up with Neurology 4-6 weeks after discharge [phone]. . documented in this encounter Plan of Treatment Not on file documented as of this encounter Visit Diagnoses Not on filedocumented in this encounter Care Teams Sheet Combining Operator Relationship Specialty Start Date End Date [facility] [place] Find-A-Doc [facility] [place] [address] PCP - General 01/05/25 01/05/25 [facility] [place], Find[facility]Doc [facility] [place] [address] PCP - General 02/02/25 documented as of this encounter
--- OUTSIDE RECORDS SUMMARY | 2025-02-04 14:27 | XMS_ITS | Encounter Summary ---
Author Organization [employer] ([place], [place], [place], [place]) Address [address] [place] [address] Care Team Providers Care Beam Saw Operator Name Role Phone [facility], Find-A-Doc Primary Care Provider [facility], Find[facility]A-Doc Primary Care Provider Encounter Details Date Type Department Care Team (Late st Contact Info) Description 01/06/2019 Transcribed Document [facility] [facility] [place] [address] ProviderMary Kate MD [address] [place] [address] [phone] Social History Tobacco Use Types Packs/Day Years Used Date Smoking Tobacco: Never Assessed Sex and Gender Information Value Date Recorded Sex Assigned at Not on file Legal Sex Male 5:22 PM CDT Gender Identity Not on file Sexual Orientation Not on file documented as of this encounter Miscellaneous Notes * Cerner Conversion Note - Mary Kate ProviderMD - 01/06/2019 7:17 AM CDT [facility] Endo IntraOp Summary Primary Physician: RAZIA LANTIGUA MD-[facility] Finalized Date/Time: 01/06/19 07:46:41 Pt. Name: PROSPER MILLS Viet KrishnaB./Sex: 1965 Male Med Rec #: [id number] Physician: ASHLEY MAGANA MD Financial #: [id number] Pt. Type: I Room/Bed: [facility]/ Admit/Disch: 01/04/19 16:47:00 - Institution: [facility] Endo - Case Attendance Entry 1 Entry 2 Entry 3 Case Attendee RAZIA LANTIGUA MD-GAE Bicknell, Ashley, TATYANA FLETCHER Role Performed Surgeon/Proceduralist, Marketing Services Rep, First Scrub, First First Time In 01/06/19 07:11:00 01/06/19 07:02:00 01/06/19 07:03:00 Time Out 01/06/19 07:30:00 01/06/19 07:45:00 01/06/19 07:09:00 Procedure Esophagogastroduodenosco Esophagogastroduodenosco Esophagogastroduodenosco py py py Other Attendee Superficial Wound Closed By: Last Modified By: Sharmila Chavez, Sharmila Liao RN Bicknell, Ashley, RN 01/06/19 07:46:04 01/06/19 07:46:04 01/06/19 07:46:04 Entry 4 Entry 5 Case Attendee MARLENE BARON, RADIOPHARMACIST DIANE REYNOSO TECH Role Performed RADIOPHARMACIST/Nurse Skein Drier Scrub, First Time In 01/06/19 07:04:00 01/06/19 07:09:00 Time Out 01/06/19 07:30:00 01/06/19 07:30:00 Procedure Esophagogastroduodenosco Esophagogastroduodenosco py py Other Attendee Superficial Wound Closed By: Last Modified By: Sharmila Chavez RN Bicknell, Ashley, RN 01/06/19 07:46:04 01/06/19 07:46:04 [facility] Endo - Case Attendance Audit 01/06/19 07:46:04 Marketing Services Rep: NORRISEA Modifier: BICKNEA 1 <*> Procedure Esophagogastroduodenoscopy 2 <+> Time Out 2 <*> Procedure Esophagogastroduodenoscopy 3 <*> Procedure Esophagogastroduodenoscopy 4 <*> Procedure Esophagogastroduodenoscopy 5 <*> Procedure Esophagogastroduodenoscopy 01/06/19 07:45:57 Marketing Services Rep: NORRISEA Modifier: BICKNEA 1 <+> Time Out 1 <*> Procedure Esophagogastroduodenoscopy 4 <+> Time Out 4 <*> Procedure Esophagogastroduodenoscopy 5 <+> Time Out 5 <*> Procedure Esophagogastroduodenoscopy 01/06/19 07:11:49 Marketing Services Rep: BICKNEA Modifier: BICKNEA 1 <*> Time In 01/06/19 07:02:00 1 <*> Procedure Esophagogastroduodenoscopy 01/06/19 07:09:49 Marketing Services Rep: BICKNEA Modifier: BICKNEA 3 <+> Time Out 3 <*> Procedure Esophagogastroduodenoscopy <+> 5 Case Attendee <+> 5 Role Performed <+> 5 Time In <+> 5 Procedure 01/06/19 07:04:20 Marketing Services Rep: BICKNEA Modifier: BICKNEA <+> 1 Procedure 2 <*> Procedure Esophagogastroduodenoscopy 3 <*> Procedure Esophagogastroduodenoscopy 4 <*> Procedure Esophagogastroduodenoscopy 01/06/19 07:04:08 Marketing Services Rep: BICKNEA Modifier: BICKNEA <+> 4 Case Attendee [...] Time 01/06/19 07:26:00 Last Modified By: Sharmila Chavez RN 01/06/19 07:46:00 [facility] - Case Times Audit 01/06/19 07:46:00 Marketing Services Rep: BICKNEA Modifier: BICKNEA <+> 1 Out Room Time 01/06/19 07:45:18 Marketing Services Rep: BICKNEA Modifier: BICKNEA <+> 1 Stop Time <+> 1 Stop Time 01/06/19 07:17:31 Marketing Services Rep: BICKNEA Modifier: BICKNEA <+> 1 Start Time 01/06/19 07:17:07 Marketing Services Rep: BICKNEA Modifier: BICKNEA <+> 1 Anesthesia Ready 01/06/19 07:04:12 Marketing Services Rep: LORENZO Modifier: BICKNEA 1 <*> Start Time 01/06/19 07:02:00 [facility] - Delays Entry 1 Delay Reason Other Duration 0 Minute(s) Comment NO DELAY Last Modified By: Sharmila Chavez RN 01/06/19 07:03:28 [facility] - Departure from OR Entry 1 Integumentary Assessment Integumentary WDL Assessment WDL Transfer/Handoff Transfer to PACU Phase I Post-op Transport Stretcher/Gurney Via Patient Transport Sharmila Chavez, RN Accompanied by Last Modified By: Sharmila Chavez RN 01/06/19 07:03:39 [facility] - Endoscopy Details Entry 1 Abdomen Procedure Soft, Non-Tender Assessment Procedure Abdomen 01/06/19 07:04:00 Assessment D/T Radio Frequency Ablation Last Modified By: Sharmila Chavez RN 01/06/19 07:04:17 [facility] - Fire Risk Assessment Entry 1 Fire Info Surgical Site or 1- Yes Incision Above the Xyphoid Open O2 Source 1- Yes (Mask or Cannula) Available Ignition 1- Yes (ESU, Laser, Light Source) Fire Risk 3 Assessment Score Fire Score Fire Risk Yes Assessment Complete Fire Risk Sharmila Chavez, cash applications coordinator Verified By Fire Risk 01/06/19 07:04:00 Assessment Verified Date/Time Fire Risk High Risk Protocol Yes Implemented Standard Fire Yes Safety Precautions Followed Last Modified By: Sharmila Chavez RN 01/06/19 07:04:24 [facility] Endo - General Case Zinc Plating Machine Operator 1 Case Information OR Out of Department [facility] Case Level 1 Room Verified Yes Wound Class II - Clean-Contaminated Specialty SN Gastroenterology Anesthesia Type MAC ASA Class 3E Diagnosis Preop Diagnosis gi bleed Postop Same As Preop No Postop Diagnosis zurdo diana tear, esophagitis Last Modified By: Sharmila Chavez RN 01/06/19 07:22:25 [facility] Endo - General Case Data Audit 01/06/19 07:22:25 Marketing Services Rep: LORENZO Modifier: MASHAKNEA <+> 1 Postop Diagnosis 01/06/19 07:17:50 Marketing Services Rep: LORENZO Modifier: MASHAKNEA 1 <*> ASA Class 4 E Endo - Implant Log Entry 1 Type Implant (Synthetic) Implant Log Implant Type Other Tissue Implant Type Other Implant CLIP II RESOLUTION Identification [id number] Description Implant Quantity 3 Implant Kent Sci:Interv Identification Cardiology Bed Spring Maker Name: Implant [id number] Identification Catalog Number Implant Has an Yes Expiration Date Implant Expiration 09/16/21 Date Tissue Implant Last Modified By: Sharmila Chavez RN 01/06/19 07:26:02 [facility] - Implant Log Audit 01/06/19 07:26:02 Marketing Services Rep: LORENZO Modifier: LORENZO 1 <*> Implant Identification Description CLIP II RESOLUTION [id number] 1 <*> Implant Quantity 2 [facility] - Intraoperative Assessment Entry 1 Valid History / Yes Physical in Chart Preoperative Yes Checklist Reviewed/Evaluated Allergies Reviewed Yes Patient is Latex No Sensitive Level of WDL Consciousness (WDL = Alert, Oriented to Person, Place, and Time) Present Upon IVs, ECG monitored Arrival to OR Last Modified By: Sharmila Chavez RN 01/06/19 07:04:59 [facility] - Intraoperative Equipment Entry 1 Type [...] Checked Positioned By Sharmila Chavez RN, MARLENE BARON CRNA Position Verified Positioning Yes Verified by Anesthesia Positioning Yes Verified by Surgeon Last Modified By: Sharmila Chavez RN 01/06/19 07:05:24 [facility] - Sign In Entry 1 Patient, Site, Yes Procedure Identified Surgical Consent Yes Confirmed Relevant Surgical Yes Documents Available Surgical Site N/A Marked by person performing procedure Allergies No Airway Hypothermia Risk No Warming Measures No Taken Last Modified By: Sharmila Chavez RN 01/06/19 07:05:35 [facility] - Sign Out Entry 1 RN Confirmation Surgical Yes Procedure(s) Identified Instrument, Sponge N/A and Sharps Counts Correct/Documented Equipment Problems N/A Documented Specimen Labeled N/A Correctly Urinary Catheter N/A Documented in IView Safety Checklist Yes Elements Complete? RN Sign Out Sharmila Chavez, RN Signature RN Sign Out 01/06/19 07:46:00 Signature [...] Modified By: Sharmila Chavez RN 01/06/19 07:46:34 [facility] Endo - Surgical Procedures Entry 1 Procedure Esophagogastroduodenosco py Primary Procedure Yes Primary Surgeon RAZIA LANTIGUA MD-ADEN Start 01/06/19 07:17:00 Stop 01/06/19 07:26:00 Anesthesia Type MAC Specialty SN Gastroenterology Wound Class II - Clean-Contaminated Last Modified By: Sharmila Chavez RN 01/06/19 07:46:07 [facility] Endo - Surgical Procedures Audit 01/06/19 07:46:07 Marketing Services Rep: MASHAKNEA Modifier: BICKNEA <+> 1 Stop 01/06/19 07:17:41 Marketing Services Rep: BICKNEA Modifier: BICKNEA <+> 1 Start 01/06/19 07:05:57 Marketing Services Rep: BICKNEA Modifier: BICKNEA 1 <*> Procedure Esophagogastroduodenoscopy 1 <+> Specialty [facility] Endo - Time Out Entry 1 Procedure [...] 07:12:05 Case Comments <None> Finalized By: Sharmila Chavez RN Document Signatures Signed By: Sharmila Chavez RN 01/06/19 07:46 documented in this encounter Plan of Treatment Not on file documented as of this encounter Visit Diagnoses Not on filedocumented in this encounter Care Teams Beam Saw Operator Relationship Specialty Start Date End Date [facility], Find-A-Doc [facility] Find-a-Doc [place], [place] [id number] PCP - General 01/05/25 01/05/25 [facility] Find[facility]Doc [facility] [place] [address] PCP - General 02/02/25 documented as of this encounter
--- OUTSIDE RECORDS SUMMARY | 2025-02-04 14:27 | XMS_ITS | Encounter Summary ---
Author Organization [employer] ([place], [place], [place], [place]) Address [address] [place] [address] Care Team Providers Care Histologist Technologist Name Role Phone [facility], Find-A-Doc Primary Care Provider [facility], Find-A-Doc Primary Care Provider Encounter Details Date Type Department Care Team (Late st Contact Info) Description 01/06/2019 Transcribed Document [facility] Radiology [address] [phone] Akshat Elise MD [address] [place] [address] Social History Tobacco Use Types Packs/Day Years [...] Medical Record [ x ] Elevated Troponin 01/0458-Lscg-Odvcbtor-0.076 01/0518-Sxcb-Qxotqwfr-0.048 Present Risk Factors Results and Location in Medical Record [ x ] Alcohol withdrawal 01/04-H&P- obvious alcohol withdrawal and tremulous very anxious [ x ] Hypertension 01/04-H&P-Hypertension Present Treatments Results and Location in Medical Record [ x ] Troponin 01/04, 01/05-MD orders-Troponin [x ] Oxygen 01/04-MD orders-Oxygen CDS Signature: _Sanjay Aparicio RN, MSN, CDS Phone #: _[phone]__ Date: __01/06/2019___ This is a permanent part of the Medical Record documented in this encounter Plan of Treatment Not on file documented as of this encounter Visit Diagnoses Not on filedocumented in this encounter Care Teams Histologist Technologist Relationship Specialty Start Date End Date [facility], Find-A-Doc [facility] [place] [address] PCP - General 01/05/25 01/05/25 [facility] [place], Find-A-Doc [facility] [place] [address] PCP - General 02/02/25 documented as of this encounter
--- OUTSIDE RECORDS SUMMARY | 2025-02-04 14:27 | XMS_ITS | Encounter Summary ---
Author Organization [employer] ([place], [place], [place], [place]) Address [address] [place] [address] Care Team Providers Care Loading Machine Operator Helper Name Role Phone [facility], Find-A-Doc Primary Care Provider [facility], Find-A-Doc Primary Care Provider Encounter Details Date Type Department Care Team (Late st Contact Info) Description 01/05/2019 Transcribed Document [facility] [place] [address] [place] [address] ProviderMary Kate MD [address] [place] [address] Social History Tobacco Use Types [...] Source : Chart Height Entry Format : Bradley Height, Feet : 5 ft Height, Inches : 7 Inch Clinical Height : 170.18 cm Body Surface Area (BSA), Routine : 1.86 m2 Body Mass Index (BMI), Routine : 25.86 kg/m2 Addie Dozier RN - 01/05/2019 11:48 EDT Electronically signed by Tobi Larsen Conversion Speech Language Pathology Assistant Cerner at 08/08/2022 11:16 PM CDT documented in this encounter Plan of Treatment Not on file documented as of this encounter Visit Diagnoses Not on filedocumented in this encounter Care Teams Loading Machine Operator Helper Relationship Specialty Start Date End Date [facility] [place] Find-A-Doc [facility] [place] [address] PCP - General 01/05/25 01/05/25 [facility] [place] Find-A-Doc [facility] [place] [address] PCP - General 02/02/25 documented as of this encounter
--- OUTSIDE RECORDS SUMMARY | 2025-02-04 14:27 | XMS_ITS | Encounter Summary ---
Author Organization [employer] ([place], [place], [place], [place]) Address [address] [place] [address] Care Team Providers Care Claims Representative Name Role Phone [facility], Find-A-Doc Primary Care Provider [facility], Find-A-Doc Primary Care Provider Encounter Details Date Type Department Care Team (Late st Contact Info) Description 01/05/2019 Transcribed Document [facility] [place] [address] ProviderMary Kate MD [address] [place] [phone] Social History Tobacco Use Types Packs/Day Years [...] 14:11 PT Additional Treatment Ordered By: Dean Delgado, Physical Therapist Active Diagnoses : 01/05/2019 12:00 [...] Delgado Physical Therapist - 01/07/2019 14:12 EDT Penitentiary Goals Other PT LTG Grid Goal #1 [...] continue Date Met : 01/06/2019 EDT Dean Delgado, Physical Therapist - 01/07/2019 14:12 EDT Dean [...] Plan for Treatment : continue POC Dean Delgado Physical Therapist - 01/07/2019 14:12 EDT Pain Assessment Pain Scaled Used : 0-10 Pain scale Pain Score Pre-Intervention : 0 Dean Delgado Physical Therapist - 01/07/2019 14:12 EDT Image 1 - Images currently included in the form version of this document have not been included in the text rendition version of the form. [place] PT Charges PT Ther Activities Ea 15 Min : 1 Gait Training Each 15 Min : 1 Dean Delgado Physical Therapist - 01/07/2019 14:12 EDT Electronically signed by Chava [facility] Conversion Systems Software Specialist Cerner at 08/08/2022 11:21 PM CDT documented in this encounter Plan of Treatment Not on file documented as of this encounter Visit Diagnoses Not on filedocumented in this encounter Care Teams Claims Representative Relationship Specialty Start Date End Date [facility] [place], Find[facility]A-Doc [facility] [place] [address] PCP - General 01/05/25 01/05/25 [facility] [place], Find[facility]A-Doc [facility] [place] [address] PCP - General 02/02/25 documented as of this encounter
--- OUTSIDE RECORDS SUMMARY | 2025-02-04 14:27 | XMS_ITS | Encounter Summary ---
Author Organization [employer] ([place], [place], [place], [place]) Address [address] [place] [address] Care Team Providers Care Art Installer Name Role Phone [facility], Find-A-Doc Primary Care Provider [facility], Find[facility]-Doc Primary Care Provider Encounter Details Date Type Department Care Team (Late st Contact Info) Description 01/04/2019 Transcribed Document [facility] [place] [facility] [place] [address] ProviderMary Kate MD [address] [place] [address] [id number] Social History Tobacco Use Types Packs/Day Years [...] of known alcohol use, multiple admissions at [place] for alcohol withdrawal syndrome. He was discharged [...] No guarding or rebound. No peritoneal signs. PHOTO CARTOGRAPHER: No focal deficits. Cranial nerves intact, anxious, [...] Trans: 01/05/2019 00:52:36 CC1: Aleksey Mcclellan M.D. Electronically signed by [facility], [facility] Conversion Hospital Scientist Cerner at 08/08/2022 11:24 PM CDT documented in this encounter Plan of Treatment Not on file documented as of this encounter Visit Diagnoses Not on filedocumented in this encounter Care Teams Art Installer Relationship Specialty Start Date End Date [facility], Find-A-Doc [facility] [place] [address] PCP - General 01/05/25 01/05/25 [facility], Find-A-Doc [facility] [place] [address] PCP - General 02/02/25 documented as of this encounter
--- OUTSIDE RECORDS SUMMARY | 2025-02-04 14:27 | XMS_ITS | Encounter Summary ---
Author Organization [employer] ([place], [place], [place], [place]) Address [address] [place] [address] Care Team Providers Care Oim Architect Name Role Phone [facility], Find-A-Doc Primary Care Provider [facility], Find-A-Doc Primary Care Provider Encounter Details Date Type Department Care Team (Late st Contact Info) Description 01/06/2019 Transcribed Document [facility] [place] Family [place] [address] [place] [address] ProviderMary Kate MD [address] [place] [address] [id number] Social History Tobacco Use Types Packs/Day Years Used Date Smoking Tobacco: Never Assessed Sex and Gender Information Value Date Recorded Sex Assigned at Not on file Legal Sex Male 5:22 PM CDT Gender Identity Not on file Sexual Orientation Not on file documented as of this encounter Miscellaneous Notes * Cerner Conversion Note - Mary Kate Cardenas MD - 01/06/2019 1:51 PM CDT Initial Discharge Planning Entered On: 01/06/2019 13:52 EDT Performed On: 01/06/2019 13:51 EDT by TABATHA CONNELL, RN-In Flight Crew Member Initial Assessment I Previously Documented Living Environment [...] : . Legal Guardian : No TABATHA CONNELL RN-In Flight Crew Member - 01/06/2019 13:51 EDT Initial Assessment II Sensory and Motor Deficits : None Current Home Treatments and Equipment : None TABATHA CONNELL RN-In Flight Crew Member - 01/06/2019 13:51 EDT Discharge Needs I Anticipated Discharge Date : 01/09/2019 EDT Anticipated Discharge To, CM : Home independently Current Home Treatment/Equipment : Current Home Treatment/Equipment No qualifying data available. Post Acute/Home Treatments : None TABATHA CONNELL RN-In Flight Crew Member - 01/06/2019 13:51 EDT Discharge Needs II Professional Skilled Services : Professional Skilled Services No qualifying data available. Needs Assistance with Transportation : Maybe TABATHA CONNELL RN-In Flight Crew Member - 01/06/2019 13:51 EDT Narrative Note Narrative Note : Prior to admission patient was independent in all areas. Sent from outlying facility. Home plan, OLOP recommended at time of discharge by care team assistant, possible need for transportation assistance at discharge. TABATHA CONNELL RN-In Flight Crew Member - 01/06/2019 13:51 EDT documented in this encounter Plan of Treatment Not on file documented as of this encounter Visit Diagnoses Not on filedocumented in this encounter Care Teams Oim Architect Relationship Specialty Start Date End Date [facility] Find-A-Doc [facility] [place] [address] PCP - General 01/05/25 01/05/25 [facility], Find-A-Doc [facility] [place] [address] PCP - General 02/02/25 documented as of this encounter
--- OUTSIDE RECORDS SUMMARY | 2025-02-04 14:27 | XMS_ITS | Encounter Summary ---
Author Organization [employer] ([place], [place], [place], [place]) Address [address] [place] [address] Care Team Providers Care Garment Alteration Examiner Name Role Phone [facility], Find-A-Doc Primary Care Provider Encounter Details Date Type Department Care Team (Latest Contact Info) Description 01/05/2025 Travel Social History Tobacco Use Types Packs/Day [...] Do you speak a language other than [facility] at [facility]? No 01/06/2025 Do you want help [...] filedocumented in this encounter Care Teams Garment Alteration Examiner Relationship Specialty Start Date End Date [facility], Find-A-Doc [facility] [place] [address] PCP - General 01/05/25 01/05/25 documented as of this encounter
[2025-02-04 14:28] LABS: Albumin Level 4.7 g/dl (3.5-5.0); Chloride 90 mmol/L (98-107); Potassium 4.0 mmoL/L (3.5-5.1); Sodium 133 mmol/L (136-145)
[2025-02-04 14:31] LABS: Alanine Aminotransferase 29 U/L (12-78); Albumin/Globulin Ratio 1.2 (1.1-1.8); Alkaline Phosphatase 91 U/L (38-126); Anion Gap 23.0 mEq/L (5-15); Aspartate Amino Transferase 35 U/L (17-59); Bilirubin,Total 0.8 mg/dl (0.2-1.3); Blood Urea Nitrogen 6 mg/dl (9-20); Carbon Dioxide 24 mmol/L (22.0-30.0); Creatinine Clearance Estimated 77 mL/min (50-200); Creatinine,Serum 0.90 mg/dl (0.66-1.25); Estimated Glomerular Filt Rate 86 ml/min (>60); GFR (African American) 105 ML/MIN (>60); Globulin 3.9 g/dL (1.3-3.2); Total Protein,Serum 8.6 g/dl (6.3-8.2)
[2025-02-04 14:32] LABS: Calcium 9.4 mg/dl (8.4-10.2); Glucose 99 mg/dl (74-100); Magnesium 1.2 mg/dl (1.6-2.3)
[2025-02-04] MEDS: MVI, ADULT NO.1 WITH VIT K 10 ML, THIAMINE HCL 100 MG, MAGNESIUM SULFATE 2 GM in LACTAT... 150 ML IV (14:34)
[2025-02-04] MEDS: KETOROLAC 15MG/ML VIAL 15 MG IV (14:35)
[2025-02-04 14:45] LABS: Troponin I < 0.01 ng/ml (0.00-0.034)
[2025-02-04 14:52] LABS: Creatine Kinase 65 U/L (55-170)
--- NOTE | 2025-02-04 15:21 | PC.NURSE ---
Called Faith to get head CT results sent over to us.
--- NOTE | 2025-02-04 15:29 | PC.NURSE ---
notified PT/OT of katlyn
--- NOTE | 2025-02-04 16:09 | HMH.OTEV ---
OT Evaluation Rehab OT IP Evaluation Start: 02/04/25 15:27 Freq: ONCE Status: Active Protocol: Document 02/04/25 16:01 RYAN (Rec: 02/04/25 16:09 RYAN [id number]) Rehab OT IP Assessment Subjective History 69-year-old male presents emergency department via EMS with complaints of weakness, headache, inability to walk since Saturday. He states that he was seen at [facility] Saturday afternoon for a fall. He reports that his workup was negative and they discharged him early Saturday morning. He reports since that time he has had to stay with his mother as he has not been able to walk. States that he has weakness with pain in bilateral knees. He also complains of headache. He states he has not take any medication for pain control for the past several days. He does report history of alcohol abuse. He states he normally drinks 4-5 vodka drinks daily but reports his last drink was on Saturday. Patient lives at home alone. 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 Independent with ADLs and fx'l mobility. Operates Motorcycle for transportation. Subjective I have been shaky. Instructed Patient on proper hand and foot placement to complete bed mobility from supine->sit @ EOB requiring Max A. Instructed Patient on safety awareness to complete STS and fx'l mobility with usage of RW. Patient required max verbal cueing due to anxious behaviors. Tremors of B UE noted during fx'l mobility. Patient maneuver ~20ft and requested to return back to EOB due to unsteadiness on feet and fear of falling. Patient required Mod Ax2 with usage of RW for fx'l mobility. Left Patient sitting upright in bed with needs met end of session. Objective Patient Orientation Person,Name,Age Right Upper WFL Extremity Gross ROM Left Upper Extremity WFL Gross ROM Bed Mobility bed mobility - supine/sit Assist Level Moderate x 2 (50% assist) Transfer Training Sit/Stand/Pivot Transfer Assist Level Moderate x 2 (50% assist) Rehab OT IP prob,goals,plan Problems Date of Evaluation: 02/04/25 OT IP Problems Bed Mobility,Transfers,Balance,Self care,Safety Rehab Potential Rehab Potential Good Equipment Needs Assistive Devices Rolling / Wheeled Walker Plan OT intervention Plan Bed Mobility,Transfers,Balance,Self care,Safety, Therapeutic Exercise OT Plan Frequency Daily Duration LOS Discharge Goals Bed Mobility Ability Assistance x1 Sit to Stand Chair Moderate x 1 (50% assist) Transfer Ability Chair Transfer Moderate x 1 (50% assist) Ability Chair Transfer Sit to/from Ambulatory Technique Chair Transfer Rolling Walker Assistive Devices Discharge Plan OT Discharge Plan Patient demonstrates increased anxiety and decreased balance, endurance, and safety awareness during mobility tasks, limiting independence and distance tolerance. Patient would benefit from OT skilled services with in order to be d/c to appropriate setting . Continue OT IP services while here at [facility]. Eval Complexity Eval Charge Codes 05522 - Low Complexity PHYSICIAN CERTIFICATION: I certify the specified therapy services for Prosper Douglas are required, authorized, and reviewed every 30 days.
--- NOTE | 2025-02-04 16:14 | EXP.HP ---
History of Present Illness *Admission Date: 02/04/25 *Reason for visit:: Weakness *History of present illness: Mr. Douglas is a 59-year-old male who presents to the ER via EMS with complaint of weakness. Having headaches and difficulty walking for the past week. He was seen last weekend at [facility] after a fall. Of note had a fall a month ago where he sustained a subdural hematoma. Was treated at a hospital in [place] and discharged to rehab for a brief period of time. Has been back home and having general weakness and difficulty ambulating. Drinks alcohol daily up until a week ago. Denies any vodka in the past 5 days. Has had seizures in the past but nothing in the past week only has tremors at this time. Denies nausea or vomiting, chest pain, shortness of breath, diarrhea or constipation. Alert and oriented x 4. On workup in the ER, found to have magnesium of 1.2 and generalized weakness. Therapy evaluated, patient not safe or stable to go home. Medicine consulted for admission and further management On evaluation after arriving to the floor, patient is hemodynamically stable but has general tremor. Otherwise alert and oriented x 4. Able to answer questions appropriately. Globally weak. [facility] Disclaimer: The information contained in this section may have been updated after the patient was seen, as this information can be updated by other users. Medical History (Updated 02/04/25 @ 17:42 by Bruno Rousseau MD) History of stroke Iron deficiency GERD (gastroesophageal reflux disease) Hyperlipemia Hypertension Surgical History History of throat surgery Family History Other No significant family history Social History Smoking Status: Smoker, status unknown alcohol intake: current substance use type: denies use current occupational status: unemployed and other Travel in the last 8 weeks?: None caffeine: Yes Have you lived/traveled outside US in past 30 days?: No Contact w/someone who lives/traveled outside US past 30 days?: No Exposure to someone with infectious disease in past 14 days?: No Do you have a fever (greater than 100.4 F or 38 C)?: No Have you tested positive for COVID-19?: No Exposed to someone with COVID-19 in past 14 days?: No Do you have a sore throat?: No Do you have a cough?: No Do you have any weakness?: Yes Are you experiencing any nausea/vomitting?: No Do you have any diarrhea?: No Are you experiencing any unusual bleeding?: No Do you have any muscle aches/pain?: No Do you have any abdominal pain?: No Are you experiencing loss of taste or smell?: No Review of Systems Review of Systems Review of systems (narrative): 14 point review of systems performed, pertinent positives and negatives as per HPI Constitutional Constitutional: Reports headache(s) and Reports weakness ENT Ears, Nose, Mouth, and Throat: Reports headache(s) *Neurologic Neurologic: Reports headache(s) and Reports weakness Meds Home Medications and Allergies Home Medications ?Medication ?Instructions ?Recorded ?Confirmed ?Type ascorbic acid (vitamin C) 500 mg 500 mg PO DAILY 08/11/24 10/15/24 History tablet atorvastatin 80 mg tablet 80 mg PO HS 08/11/24 10/15/24 History carvedilol 12.5 mg tablet 12.5 mg PO BID 08/11/24 10/15/24 History cyanocobalamin (vitamin B-12) 1,000 mcg PO DAILY 08/11/24 10/15/24 History 1,000 mcg tablet ferrous sulfate 325 mg (65 mg 325 mg PO TID 08/11/24 10/15/24 History iron) tablet (FeroSul) folic acid 1 mg tablet 1 mg PO DAILY 08/11/24 10/15/24 History levetiracetam 500 mg tablet 500 mg PO DAILY 08/11/24 10/15/24 History pantoprazole 40 mg tablet,delayed 40 mg PO DAILY 08/11/24 10/15/24 History release thiamine HCl (vitamin B1) 100 mg 100 mg PO DAILY 08/11/24 10/15/24 History tablet trazodone 150 mg tablet 150 mg PO HS 08/11/24 10/15/24 History venlafaxine 150 mg 150 mg PO DAILY 08/11/24 10/15/24 History capsule,extended release 24 hr simvastatin 20 mg tablet 20 mg PO DAILY 10/15/24 10/15/24 History New Prescriptions to Start Prescriptions: Allergies Allergy/AdvReac Type Severity Reaction Status Date / Time No Known Allergies Allergy Verified 02/04/25 17:28 Exam Data for Last 24 hours Vital signs and Labs for Last 24 Hours: Temp Pulse Resp BP Pulse Ox O2 Del Method 99.0 F 74 19 158/106 H 98 Room Air 02/04/25 14:03 02/04/25 15:00 02/04/25 15:00 02/04/25 15:00 02/04/25 15:00 02/04/25 14:30 Laboratory Results - last 24 hr 02/04/25 14:11: WBC 8.5, RBC 4.17 L, Hgb 14.0 L, Hct 41.2 L, MCV 98.8 H, MCH 33.6 H, MCHC 34.0, RDW 13.7, Plt Count 233, MPV 9.2, Neut % (Auto) 83.1 H, Lymph % (Auto) 9.8 L, Scurry % (Auto) 6.5, Eos % (Auto) 0.2, Baso % (Auto) 0.2, Neut # (Auto) 7.0, Lymph # (Auto) 0.8, Scurry # (Auto) 0.6, Eos # (Auto) 0.0, Baso # (Auto) 0.0, Sodium 133 L, Potassium 4.0, Chloride 90 L, Carbon Dioxide 24, Anion Gap 23.0 H, BUN 6 L, Creatinine 0.90, Estimated Creat Clear 77, Estimated GFR 86, Est GFR ( Amer) 105, Glucose 99, Calcium 9.4, Magnesium 1.2 L, Total Bilirubin 0.8, AST 35, ALT 29, Alkaline Phosphatase 91, Total Creatine Kinase 65, Troponin I < 0.01, Total Protein 8.6 H, Albumin 4.7, Globulin 3.9 H, Albumin/Globulin Ratio 1.2, Plasma/Serum Alcohol < 10 I & O for Last 24 hours: Intake & Output 02/01/25 02/02/25 02/03/25 02/04/25 23:59 23:59 23:59 23:59 Weight 61.235 kg Constitutional Constitutional: mild distress, thin, chronically ill appearing and cooperative *Routine HEENT Exam Head: Present atraumatic Eye: Present EOMI and PERRL ENT: Present mucous membranes moist Comments: 2 inch laceration to middle of forehead, small dime sized abrasion right episcopalian. No active bleeding. *Routine Neck Exam Neck: Present supple *Routine Respiratory Exam Respiratory: Present CTA bilaterally; Absent rhonchi, wheezes or crackles *Routine Cardiovascular Exam Cardiovascular: Present RRR *Routine Abdominal Exam Abdominal: Present soft and normoactive bowel sounds; Absent tenderness *Routine Rectal Exam Rectal:: deferred *Routine Genitalia Exam Genitalia:: deferred *Routine Extremities Exam Extremities: Absent cyanosis, clubbing or edema Comments: Sarcopenia *Routine Skin Exam Skin: Present intact, pallor and warm; Absent rash *Routine Neurological Exam Neurological: Present alert, oriented X3, moving all extremities and tremors; Absent altered mental status Assessment and Plan *Assessment and plan (1) Generalized weakness: Status: Acute Category: Medical Code(s): R53.1 - Weakness (2) Alcohol withdrawal: Status: Acute Category: Medical Code(s): F10.939 - Alcohol use, unspecified with withdrawal, unspecified (3) Hypomagnesemia: Status: Acute Category: Medical Code(s): E83.42 - Hypomagnesemia (4) Protein calorie malnutrition: Status: Acute Category: Medical Code(s): E46 - Unspecified protein-calorie malnutrition (5) Seizure disorder: Status: Chronic Category: Medical Code(s): G40.909 - Epilepsy, unspecified, not intractable, without status epilepticus (6) Hypertension: Status: Chronic Category: Medical Code(s): I10 - Essential (primary) hypertension (7) History of subdural hematoma: Status: Acute Category: Medical Code(s): Z86.79 - Personal history of other diseases of the circulatory system Plan 59-year-old male with history of alcoholism. Last drink a week ago. Presents with generalized weakness and inability to care for self. Found to have low magnesium at 1.2. Discussed case with ER provider, request admission for electrolyte replacement and evaluation/continue to work with therapy. Patient likely needs placement. Problems addressed as follows: Weakness Hypomagnesemia - Generalized weakness, unable to ambulate without frequent falls. Gets around with a walker at home at baseline. Evaluated by therapy in the ER, unable to go home safely. Recommend placement. Case management to assist in the morning - Magnesium 1.2, will replace per protocol. Receiving 2 g IV. Repeat magnesium, CBC, CMP levels ordered for the morning. Potassium 4.0. Kidney function normal with BUN 6, creatinine 0.9 - Hemoglobin 14, white count 8.5. MCV 98. Anticipate he likely has vitamin deficiencies due to his alcoholism. Initiate daily multivitamin. Receiving rally pack x 1 from the ER - Per my review of CT of head, shows stable subdural hematoma Alcohol dependence: weatherization specialist consulted to assist with outpatient rehab. Has been a week since his last drink. Has mild tremor but no significant withdrawal symptoms. Seizure precautions given his history but low CIWA score, no benzos needed at this time Hypertension: Resume metoprolol tartrate 12.5 mg twice daily, resume amlodipine 2.5 mg daily. Monitor blood pressure closely given patient's weakness. Caution with causing hypotension. Will gradually titrate meds if remains hypertensive Reported seizure disorder but not on any antiepileptics at this time. Continue seizure precautions. Low threshold to initiate Keppra Hyperlipidemia: Continue home Lipitor 10 mg daily Full code Holding anticoagulation with recent subdural hematoma Regular diet
--- NOTE | 2025-02-04 16:18 | HMH.PTEV ---
Physical Therapy Evaluation Rehab PT IP Evaluation Start: 02/04/25 15:27 Freq: ONCE Status: Active Protocol: Document 02/04/25 16:14 PHOSABINO (Rec: 02/04/25 16:18 PHORNE [id number]) Subjective/History History History 69-year-old male presents emergency department via EMS with complaints of weakness, headache, inability to walk since Saturday. He states that he was seen at [facility] Saturday afternoon for a fall. He reports that his workup was negative and they discharged him early Saturday morning. He reports since that time he has had to stay with his mother as he has not been able to walk. States that he has weakness with pain in bilateral knees. He also complains of headache. He states he has not take any medication for pain control for the past several days. He does report history of alcohol abuse. He states he normally drinks 4-5 vodka drinks daily but reports his last drink was on Saturday. CT head shows subacute vs chronic subdural hematoma. Subjective Subjective Pt reports he lives alone, 1 JOY the home, and he is generally independent with all mobility without an AD. He does report having a rolator walker at home if needed. [facility] How much help from another person do you currently need... Turning from your None back to your side while in a flat bed without using bedrails? Moving from lying on A little back to sitting on the side of a flat bed without using bedrails? Moving to and from a A little bed to a chair ( including a wheelchair)? Standing up from a A little chair using your arms? (e.g., wheelchair, bedside chair) Walking in hospital A lot room? Climbing 3-5 steps A lot with a railing? Mobility Score 17 Mobility Level [facility] Mobility 5 Stand (1 or more minutes) Mobility Calculator Rehab PT IP Eval Objective Appearance Patient Behavior Appropriate Patient Orientation Person,Place,Time Difficulty following none instructions Speech Pattern Clear Ambulation Patient Able to Yes Ambulate Ambulation Observation IP General Gait Ataxic Gait,Shuffling Step Pattern Observation Ambulation Distance 20 (feet) Ambulation Assistive Rolling Walker Device Ambulation Ability Minimal x 1 (25% assist) Balance Ability to Arise Able, uses arms to help Sitting Balance Steady, safe Standing Balance Unsteady Dynamic Sitting Fair Balance Ability Dynamic Standing Poor Balance Ability Transfers Bed Transfer Ability Contact Guard/Hand Hold Chair Transfer Minimal x 1 (25% assist) Ability Sit to Stand Bed Contact Guard/Hand Hold Transfer Ability Sit to Stand Chair Contact Guard/Hand Hold Transfer Ability MMT All Extremities PT MMT WFL Rehab PT IP prob,goals,plan Problems Date of Evaluation: 02/04/25 PT IP Problems Bed Mobility,Transfers,Gait,Balance,Self care Rehab Potential Rehab Potential Good Plan PT Intervention Plan Bed Mobility,Transfers,Gait,Balance,Self care, Therapeutic Exercise PT Plan Frequency Daily Duration LOS Discharge Goals Bed Transfer Ability Supervision/Stand by Sit to Stand Chair Contact Guard/Hand Hold Transfer Ability Ambulation Assistive Rolling Walker Device Ambulation Distance 40 (feet) Discharge Plan PT Discharge Plan Pt is currently unsafe to return home independently due to ataxic gait and high likelihood of continued falls. Skilled therapy services are indicate to aid pt improvement in transfers and ambulation. Recommend skilled rehab placement once medically stable prior to return home at this time. Eval Complexity Eval Charge Codes 79471 - High Complexity PHYSICIAN CERTIFICATION: I certify the specified therapy services for Prosper Douglas are required, authorized, and reviewed every 30 days.
--- NOTE | 2025-02-04 17:07 | PC.WOUNDNOTE ---
SCABBING ON FOREHEAD
--- NOTE | 2025-02-04 17:08 | PC.WOUNDNOTE ---
SCAB ON RIGHT SIDE OF HEAD
--- NOTE | 2025-02-04 17:09 | PC.WOUNDNOTE ---
SCAB ON RIGHT HAND
--- NOTE | 2025-02-04 17:09 | PC.WOUNDNOTE ---
BRUISING ON LEFT HAD FROM AN IV EARLIER THIS WEEK
--- NOTE | 2025-02-04 17:11 | PC.WOUNDNOTE ---
BRUISE ON RIGHT HIP
--- NOTE | 2025-02-04 17:11 | PC.WOUNDNOTE ---
BRUISE ON RIGHT HIP, MORE ANTERIOR
--- NOTE | 2025-02-04 17:12 | PC.WOUNDNOTE ---
BRUISING ON RIGHT SHOULDER FROM A FALL AT HOME
[2025-02-04] MEDS: MAGNESIUM SULFATE IN WATER 2 GM/50 ML PIGGYBACK IV ×3 (17:46→19:41)
--- NOTE | 2025-02-04 18:04 | PC.NURSE ---
Patient home meds are in med cart for pharmacy in the am
--- NOTE | 2025-02-04 18:20 | PEERSUPPORT ---
Peer Support Note Patient Information Patient Information: DOS: 02/04/2025 ? ED Ps Consult ? ETOH Last Ingested: 01/29/2025 ? 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 ? Withdrawal Potential: No ETOH since Saturday01/29/2025 ? Previous Treatment: Residential Treatment for one year at [facility] in [place], [place]. Pt stated he went voluntarily, done well, positive experience. ? Longest Length of Sobriety: 13 months ? Legal Issues: DUI 3x- Currently waiting to have licensed restored. ? Support System: -Mother -Father -Aunt- ? Current Stressors: -Not able to walk -His health -Unknowing his diagnosis or having doctors explain to him what is going on with him. ? Motivation for Change: Pt stated he does need help with his drinking habits, he is interested in outpatient treatment at this time. Ps shared personal experience to bridge understanding and hope to recovery being possible through many processes. ? Ps and pt discuss outpatient options local in [place], [facility] for treatment for alcohol use disorder. ? Ps also informed of inpatient option, to be further discussed. Pt is not oppose to inpatient treatment, just concerned of leaving his cats behind. ? Pt receptive with ps, agreeing to follow ups during his admission to [facility] and ongoing after discharge. ? Potential Barriers: -Ability to walk -Pt has three cats he does not want to leave behind if he goes to inpatient treatment. ? Harm Reduction: Connection to Bridge Peer Support Education on Alcohol Use disorder Treatment referrals/resources ? Plan of action: -Monitor medically while admitted -Ps will follow up on 02/05/2025 -Discuss recovery plan
--- NOTE | 2025-02-04 18:53 | PC.NURSE ---
Patient gave verbal consent to talk to his aunt Yahaira Cabrera whenever needed. Her information is in the computer under next of kin and he also stated she may call his cell phone and ask to talk to the staff
[2025-02-04 18:58] LABS: Troponin I < 0.01 ng/ml (0.00-0.034)
[2025-02-04 20:16] LABS: Microscopic, Urine URINE MICROSCOPIC (MICROSCOPIC)
[2025-02-04 20:17] LABS: Color,Urine YELLOW (Yellow); Glucose,Urine (UA) Negative (Negative); Ketones,Urine 2+ (Negative); Leukocyte Esterase,Urine Negative (Negative); PH,Urine 6.0 (5.0-8.5); Protein,Urine 3+ (Negative); Specific Gravity, Urine >= 1.030 (1.005-1.030); Urobilinogen,Urine 1.0 EU/dl (0.2)
[2025-02-04 20:19] LABS: Bilirubin,Urine 3+ (Negative)
[2025-02-04 20:27] LABS: Bacteria,Urine 2+ /lpf; RBC,Urine Occasional #/hpf (0-3)
[2025-02-04 20:29] LABS: Benzodiazepines Screen,Urine Negative ng/ml (<200)
[2025-02-04 20:30] LABS: Amphetamine/Metha Screen,Urine Negative ng/ml (<1000)
[2025-02-04 20:31] LABS: Barbiturates Screen,Urine Positive ng/ml (<200)
[2025-02-04 20:33] LABS: Methadone Screen,Urine Negative ng/ml (<300); Opiate Screen,Urine Negative ng/ml (<300)
[2025-02-04 20:34] LABS: Phencyclidine Screen,Urine Negative ng/ml (<25)
[2025-02-04] MEDS: PANTOPRAZOLE 40MG TABLET 40 MG PO (20:38)
[2025-02-04] MEDS: METOPROLOL TARTRATE 25MG TABLET 12.5 MG PO (20:38)
[2025-02-04] MEDS: ATORVASTATIN 10MG TABLET 10 MG PO (20:39)
[2025-02-05] VITALS (9 sets, daily range): BP systolic 120–157; BP diastolic 72–91; PULSE 48–75; RESP 12–17; TEMP 36.5–36.9; O2SAT 94–100; BMI 20.6
[2025-02-05 06:25] LABS: Hematocrit 36.2 % (42.0-52.0); Hemoglobin 12.6 g/dL (14.1-18.0); Immature Granulocytes % 0.6 %; Mean Corpuscular HGB Conc 34.8 g/dL (31.8-35.4); Mean Corpuscular Hemoglobin 34.1 pg (27.0-31.2); Mean Corpuscular Volume 97.8 fl (80-94); Nucleated Red Blood Cells % 0 %; Platelet Count 161 K/mm3 (142-424); Red Blood Count 3.70 M/mm3 (4.60-6.20); Red Cell Distribution Width-SD 48.2 fL; White Blood Count 4.8 K/mm3 (4.8-10.8)
[2025-02-05 06:43] LABS: Albumin Level 3.7 g/dl (3.5-5.0); Chloride 92 mmol/L (98-107); Sodium 132 mmol/L (136-145)
[2025-02-05 06:46] LABS: Alanine Aminotransferase 22 U/L (12-78); Albumin/Globulin Ratio 1.2 (1.1-1.8); Alkaline Phosphatase 76 U/L (38-126); Anion Gap 13.0 mEq/L (5-15); Aspartate Amino Transferase 35 U/L (17-59); Bilirubin,Total 0.6 mg/dl (0.2-1.3); Blood Urea Nitrogen 5 mg/dl (9-20); Carbon Dioxide 30 mmol/L (22.0-30.0); Creatinine Clearance Estimated 94 mL/min (50-200); Creatinine,Serum 0.70 mg/dl (0.66-1.25); Estimated Glomerular Filt Rate 115 ml/min (>60); GFR (African American) 140 ML/MIN (>60); Globulin 3.2 g/dL (1.3-3.2); Phosphorous 3.1 mg/dl (2.5-4.5); Total Protein,Serum 6.9 g/dl (6.3-8.2)
[2025-02-05 06:47] LABS: Calcium 8.4 mg/dl (8.4-10.2); Glucose 100 mg/dl (74-100); Magnesium 2.3 mg/dl (1.6-2.3)
[2025-02-05 07:05] LABS: Potassium 3.0 mmoL/L (3.5-5.1)
[2025-02-05] MEDS: AMLODIPINE 2.5MG TABLET 2.5 MG PO (08:17)
[2025-02-05] MEDS: METOPROLOL TARTRATE 25MG TABLET 12.5 MG PO (08:17)
[2025-02-05] MEDS: THIAMINE 100MG TABLET 100 MG PO (08:17)
[2025-02-05] MEDS: POTASSIUM CHLORIDE 20MEQ TAB 40 MEQ PO ×3 (08:17→16:48)
--- NOTE | 2025-02-05 09:11 | PC.NURSE ---
Lab called about patients potassium level being 3.0. Patient is on electrolyte replacement order will be sent to pharmacy to get po potassium for patient. MD linn
--- NOTE | 2025-02-05 10:07 | SW/DCPLANNER ---
Addendum entered by Ev Harris 02/08/25 13:10: Sushila spoke with patient and therapy has recommended that patient go home with home health once he is medically stable and ready for discharge. Patient stated that he has no preference and that he had [facility] home health and i sent his resumption of care and they are able to accept patient. I also let them know that patient is DC today. [facility] [employer] Addendum entered by Sushila Valverde 02/08/25 09:50: Patient is scheduled for [facility] in [place] tomorrow 02/09/25 at 10AM. Addendum entered by Sushila Valverde 02/08/25 08:38: Due to patient improving physically (able to ambulate 200+ ft) he has chose to return home w/ home health services. Patient does not have a home health agency preference. Patient does have a rolling walker at home. I have updated MD and [facility]. Patient will discharge home today. I have also followed up w/ PS regarding outpatient services. Addendum entered by Sushila Valverde 02/05/25 12:36: [facility] is able to accept this patient and will start precert today. Addendum entered by Sushila Valverde 02/05/25 11:42: [facility] is unable to accept patient. [facility] and [facility] are currently reviewing. Original Note: I spoke w/ patient regarding plans once medically stable for discharge. PT/OT evaluated patient and recommended SNF level of care. Patient is agreeable to placement and outpatient alcohol treatment once this is completed. Patient is agreeable to placement at [facility], [facility] or [facility]. Patient information will be faxed to all facilities this AM. Discharge date is unknown at this time. CM will continue to follow up.
--- NOTE | 2025-02-05 12:38 | PC.NURSE ---
Notified MD Danae Rousseau about patient qt being prolonged on the registered nurse cardiac. Ask md if he wanted to obtain an EKG and he stated one is not needed at this time
[2025-02-05] MEDS: PRENATAL MULTIVITAMIN W/IRON 1 EACH PO (16:47)
--- NOTE | 2025-02-05 18:19 | ECG_ITS ---
APPROVED REPORT Exam: Resting ECG HR:73 bpm ECG Measurements Heart Rate [address] 146 P 34 QRSd 93 QRS 51 QT 411 T 46 QTc 437 Conclusion SINUS RHYTHM NORMAL ECG UNCONFIRMED REPORT Electronically signed by : John Amor MD 02/05/2025 21:56:08
--- NOTE | 2025-02-05 18:20 | PC.NURSE ---
Notified MD about patient t waves now being inverted. MD wants to order EKG and Troponin. Orders placed and call was placed to respiratory and lab.
--- NOTE | 2025-02-05 18:53 | PC.NURSE ---
Patient alert and oriented. When started shift this morning patient was sitting in the recliner. Patient ate all of his breakfast lunch and dinner. Patient walked with pt using walker. Patient was unsteady on his feet. Patient had some trouble swallowing his large pills and has agreed to have them crushed and put in pudding or applesauce when he has to take them again. Patient has been sinus edson to normal sinus on the monitor with tall peaked t waves and prolong qt. Patient has agreed to go to inpatient rehab to help him get stronger. [facility] has accepted the patient just waiting on authorization. More than likely patient will be transferred tomorrow. Patient was bathed today. Patient lung sounds clear on ausculation.
[2025-02-05 19:12] LABS: Troponin I < 0.01 ng/ml (0.00-0.034)
[2025-02-05] MEDS: PANTOPRAZOLE 40MG TABLET 40 MG PO (20:07)
[2025-02-05] MEDS: ATORVASTATIN 10 MG PO (20:09)
[2025-02-05] MEDS: METOPROLOL TARTRATE 25 MG 12.5 MG PO (20:09)
--- NOTE | 2025-02-05 21:12 | EXP.ACUTE.PN ---
Subjective *Date: 02/05/25 *Time: 21:12 Interval history: No complaints today. Still has mild tremor. Appears to be his baseline. Stable on room air. No nausea or vomiting. Working with therapy. Medical Exam Vital signs and Labs for Last 24 Hours: Vital Signs Temp Pulse Pulse Resp BP Pulse Ox O2 Del Method 02/05/25 20:01 97.9 F 59 L 17 142/81 H 99 Room Air 02/05/25 20:00 97 Room Air 02/05/25 20:00 54 L 02/05/25 18:52 Room Air 02/05/25 16:57 Room Air 02/05/25 16:00 54 L 02/05/25 16:00 97.9 F 57 L 13 142/87 H 98 Room Air 02/05/25 14:50 Room Air 02/05/25 13:00 Room Air 02/05/25 12:00 57 L 12 131/91 H 94 L 02/05/25 12:00 52 L 02/05/25 11:00 Room Air 02/05/25 09:00 Room Air 02/05/25 08:00 70 100 Room Air 02/05/25 08:00 75 02/05/25 08:00 97.7 F 70 14 120/72 98 Room Air 02/05/25 07:00 97.7 F 51 L 14 145/91 H 99 Room Air 02/05/25 07:00 Room Air 02/05/25 06:07 98.5 F 02/05/25 05:00 Room Air 02/05/25 04:00 48 L 02/05/25 04:00 50 L 12 157/91 H 95 Room Air 02/05/25 03:00 Room Air 02/05/25 01:00 Room Air 02/05/25 00:00 48 L 02/05/25 00:00 97.9 F 56 L 15 135/77 97 Room Air 02/04/25 23:00 Room Air Intake and Output 02/05/25 02/05/25 02/05/25 07:59 15:59 23:59 Intake Total 0 / 1280 1040 / 1280 240 / 1280 Output Total 600 / 925 200 / 925 125 / 925 Balance -600 / 355 840 / 355 115 / 355 Intake: Intake, Oral Amount 0 / 1280 1040 / 1280 240 / 1280 Output: Output, Urine Amount 600 / 925 200 / 925 125 / 925 Other: Number of Unmeasured Voids 0 Number of Bowel Movements 1 1 Weight 58.24 kg Patient Weight 02/05/25 23:59 Weight 58.24 kg Laboratory Results - last 24 hr 02/05/25 05:43: WBC 4.8 D, RBC 3.70 L, Hgb 12.6 L, Hct 36.2 L, MCV 97.8 H, MCH 34.1 H, MCHC 34.8, RDW 13.5, Plt Count 161 D, MPV 9.8, Neut % (Auto) 60.9, Lymph % (Auto) 24.4, [place] % (Auto) 9.7 H, Eos % (Auto) 3.6, Baso % (Auto) 0.8, Neut # (Auto) 2.9, Lymph # (Auto) 1.2, Perkins # (Auto) 0.5, Eos # (Auto) 0.2, Baso # (Auto) 0.0, Sodium 132 L, Potassium 3.0 L D, Chloride 92 L, Carbon Dioxide 30, Anion Gap 13.0, BUN 5 L, Creatinine 0.70 D, Estimated Creat Clear 94, Estimated GFR 115, Est GFR ( Amer) 140 D, Glucose 100, Calcium 8.4, Phosphorus 3.1, Magnesium 2.3 D, Total Bilirubin 0.6, AST 35, ALT 22, Alkaline Phosphatase 76, Total Protein 6.9, Albumin 3.7 D, Globulin 3.2, Albumin/Globulin Ratio 1.2 02/05/25 18:36: Troponin I < 0.01 I & O for Labs for Last 24 Hours: Intake & Output 02/02/25 02/03/25 02/04/25 02/05/25 23:59 23:59 23:59 23:59 Intake Total 1645 / 1645 1280 / 1280 Output Total 500 / 500 925 / 925 Balance 1145 / 1145 355 / 355 Weight 58.145 kg 58.24 kg Constitutional: Present no acute distress, thin, chronically ill appearing and cooperative Head: Present atraumatic and normocephalic Respiratory: Present normal respiratory effort; Absent rhonchi, wheezes or crackles Cardiac: Present Reg Rate and Rhythm GI: Present soft and normal bowel sounds; Absent distention or tenderness Extremities: Present normal inspection and full ROM Skin: Present intact; Absent erythema Neuro: Present Grossly Intact, alert, awake, oriented x 3 and moves all extremities Assessment and Plan *Assessment and plan (1) Generalized weakness: Status: Acute Category: Medical Code(s): R53.1 - Weakness (2) Alcohol withdrawal: Status: Acute Category: Medical Code(s): F10.939 - Alcohol use, unspecified with withdrawal, unspecified (3) Hypomagnesemia: Status: Acute Category: Medical Code(s): E83.42 - Hypomagnesemia (4) Protein calorie malnutrition: Status: Acute Category: Medical Code(s): E46 - Unspecified protein-calorie malnutrition (5) Seizure disorder: Status: Chronic Category: Medical Code(s): G40.909 - Epilepsy, unspecified, not intractable, without status epilepticus (6) Hypertension: Status: Chronic Category: Medical Code(s): I10 - Essential (primary) hypertension (7) History of subdural hematoma: Status: Acute Category: Medical Code(s): Z86.79 - Personal history of other diseases of the circulatory system Plan 59-year-old male with history of alcoholism. Last drink a week ago. Presents with generalized weakness and inability to care for self. Found to have low magnesium at 1.2. Discussed case with ER provider, request admission for electrolyte replacement and evaluation/continue to work with therapy. Patient would benefit from placement. Therapy working with patient. Case management assisting with placement recommendations. Problems addressed as follows: Weakness Hypomagnesemia - Generalized weakness, unable to ambulate without frequent falls. Gets around with a walker at home at baseline. Evaluated by therapy in the ER, unable to go home safely. Recommend placement. Case management to assist in the morning - Magnesium 2.3, repeat magnesium, CBC, CMP levels ordered for the morning. Potassium 3.0, sodium 132. Replace per protocol. BUN 5, creatinine 0.7 - Hemoglobin 12.6, white count 4.8. Continue daily multivitamin. - Per my review of CT of head, shows stable subdural hematoma Alcohol dependence: community support specialist consulted to assist with outpatient rehab. Has been a week since his last drink. Has mild tremor but no significant withdrawal symptoms. Seizure precautions given his history but low CIWA score, no benzos needed at this time - Discontinue CIWA scores Hypertension: - Blood pressure increasing. Will resume home regimen of metoprolol tartrate 25 mg twice daily, amlodipine 5 mg daily. Monitor blood pressure closely given patient's weakness. Caution with causing hypotension. Will gradually titrate meds if remains hypertensive Reported seizure disorder but not on any antiepileptics at this time. Continue seizure precautions. Low threshold to initiate Keppra Hyperlipidemia: Continue home Lipitor 10 mg daily Full code Holding anticoagulation with recent subdural hematoma Regular diet
[2025-02-06] VITALS (8 sets, daily range): BP systolic 128–179; BP diastolic 80–97; PULSE 47–90; RESP 12–18; TEMP 36.8–37.2; O2SAT 96–100; BMI 20.9
[2025-02-06 07:23] LABS: Hematocrit 39.9 % (42.0-52.0); Hemoglobin 13.1 g/dL (14.1-18.0); Immature Granulocytes % 0.4 %; Mean Corpuscular HGB Conc 32.8 g/dL (31.8-35.4); Mean Corpuscular Hemoglobin 33.0 pg (27.0-31.2); Mean Corpuscular Volume 100.5 fl (80-94); Nucleated Red Blood Cells % 0 %; Platelet Count 119 K/mm3 (142-424); Red Blood Count 3.97 M/mm3 (4.60-6.20); Red Cell Distribution Width-SD 49.2 fL; White Blood Count 5.2 K/mm3 (4.8-10.8)
[2025-02-06 07:28] LABS: Albumin Level 4.1 g/dl (3.5-5.0); Chloride 99 mmol/L (98-107)
[2025-02-06 07:29] LABS: Potassium 3.9 mmoL/L (3.5-5.1); Sodium 133 mmol/L (136-145)
[2025-02-06 07:31] LABS: Alanine Aminotransferase 22 U/L (12-78); Albumin/Globulin Ratio 1.2 (1.1-1.8); Anion Gap 13.9 mEq/L (5-15); Aspartate Amino Transferase 29 U/L (17-59); Blood Urea Nitrogen 14 mg/dl (9-20); Carbon Dioxide 24 mmol/L (22.0-30.0); Creatinine Clearance Estimated 95 mL/min (50-200); Creatinine,Serum 0.70 mg/dl (0.66-1.25); Estimated Glomerular Filt Rate 115 ml/min (>60); GFR (African American) 140 ML/MIN (>60); Globulin 3.3 g/dL (1.3-3.2); Total Protein,Serum 7.4 g/dl (6.3-8.2)
[2025-02-06 07:32] LABS: Alkaline Phosphatase 72 U/L (38-126); Bilirubin,Total 0.6 mg/dl (0.2-1.3); Calcium 9.0 mg/dl (8.4-10.2); Glucose 92 mg/dl (74-100); Magnesium 1.8 mg/dl (1.6-2.3); Phosphorous 3.3 mg/dl (2.5-4.5)
[2025-02-06] MEDS: THIAMINE 100MG TABLET 100 MG PO (09:31)
[2025-02-06] MEDS: AMLODIPINE 5MG TABLET 5 MG PO (09:31)
[2025-02-06] MEDS: METOPROLOL TARTRATE 25MG TABLET 25 MG PO ×2 (09:32→21:09)
--- NOTE | 2025-02-06 09:40 | EXP.ACUTE.PN ---
Subjective *Date: 02/06/25 *Time: 09:41 Interval history: No issues overnight. Denies chest pain or shortness of breath. No nausea or vomiting. Tolerating p.o. intake. Medical Exam Vital signs and Labs for Last 24 Hours: Vital Signs Temp Pulse Pulse Resp BP BP Pulse Ox 02/06/25 09:00 02/06/25 08:00 89 18 128/83 98 02/06/25 08:00 98 02/06/25 08:00 90 02/06/25 08:00 98.2 F 80 18 128/83 98 02/06/25 07:00 02/06/25 05:00 02/06/25 04:00 66 02/06/25 04:00 98.3 F 55 L 13 161/80 H 96 02/06/25 03:00 02/06/25 01:00 02/06/25 00:15 47 L 12 97 02/06/25 00:00 98.6 F 48 L 13 136/93 H 97 02/06/25 00:00 54 L 02/05/25 23:00 02/05/25 21:00 02/05/25 20:01 97.9 F 59 L 17 142/81 H 99 02/05/25 20:00 97 02/05/25 20:00 54 L 02/05/25 18:52 02/05/25 16:57 02/05/25 16:00 54 L 02/05/25 16:00 97.9 F 57 L 13 142/87 H 98 02/05/25 14:50 02/05/25 13:00 02/05/25 12:00 57 L 12 131/91 H 94 L 02/05/25 12:00 52 L 02/05/25 11:00 O2 Del Method 02/06/25 09:00 Room Air 02/06/25 08:00 02/06/25 08:00 Room Air 02/06/25 08:00 02/06/25 08:00 Room Air 02/06/25 07:00 Room Air 02/06/25 05:00 Room Air 02/06/25 04:00 02/06/25 04:00 Room Air 02/06/25 03:00 Room Air 02/06/25 01:00 Room Air 02/06/25 00:15 02/06/25 00:00 Room Air 02/06/25 00:00 02/05/25 23:00 Room Air 02/05/25 21:00 Room Air 02/05/25 20:01 Room Air 02/05/25 20:00 Room Air 02/05/25 20:00 02/05/25 18:52 Room Air 02/05/25 16:57 Room Air 02/05/25 16:00 02/05/25 16:00 Room Air 02/05/25 14:50 Room Air 02/05/25 13:00 Room Air 02/05/25 12:00 02/05/25 12:00 02/05/25 11:00 Room Air Intake and Output 02/05/25 02/06/25 02/06/25 23:59 07:59 15:59 Intake Total 240 / 1280 500 / 1000 500 / 1000 Output Total 125 / 2325 2049 Balance 115 / -1045 -1550 / -1050 500 / -1050 Intake: Intake, Oral Amount 240 / 1280 500 / 1000 500 / 1000 Output: Output, Urine Amount 125 / 2325 2049 Other: Number of Voids 2 Number of Unmeasured Voids 0 Number of Bowel Movements 1 Weight 59.285 kg Patient Weight 02/06/25 23:59 Weight 59.285 kg Laboratory Results - last 24 hr 02/05/25 18:36: Troponin I < 0.01 02/06/25 07:10: WBC 5.2, RBC 3.97 L, Hgb 13.1 L, Hct 39.9 L, MCV 100.5 H, MCH 33.0 H, MCHC 32.8, RDW 13.3, Plt Count 119 L D, MPV 9.6, Neut % (Auto) 59.8, Lymph % (Auto) 26.9, [place] % (Auto) 7.7, Eos % (Auto) 4.6, Baso % (Auto) 0.6, Neut # (Auto) 3.1, Lymph # (Auto) 1.4, [place] # (Auto) 0.4, Eos # (Auto) 0.2, Baso # (Auto) 0.0, Sodium 133 L, Potassium 3.9 D, Chloride 99, Carbon Dioxide 24, Anion Gap 13.9, BUN 14 D, Creatinine 0.70, Estimated Creat Clear 95, Estimated GFR 115, Est GFR ( Amer) 140, Glucose 92, Calcium 9.0, Phosphorus 3.3, Magnesium 1.8 D, Total Bilirubin 0.6, AST 29, ALT 22, Alkaline Phosphatase 72, Total Protein 7.4, Albumin 4.1 D, Globulin 3.3 H, Albumin/Globulin Ratio 1.2 I & O for Labs for Last 24 Hours: Intake & Output 02/03/25 02/04/25 02/05/25 02/06/25 23:59 23:59 23:59 23:59 Intake Total 1645 / 1645 1280 / 1280 1000 / 1000 Output Total 500 / 500 925 / 2325 2049 / 2049 Balance 1145 / 1145 355 / -1045 -1050 / -1050 Weight 58.145 kg 58.24 kg 59.285 kg Microbiology Reports for the Last 24 Hours: Microbiology 02/04/25 20:08 Urine,Clean Catch Urine Culture - Final NO GROWTH AFTER 48 HOURS Constitutional: Present no acute distress, thin, chronically ill appearing and cooperative Head: Present atraumatic and normocephalic Respiratory: Present normal respiratory effort; Absent rhonchi, wheezes or crackles Cardiac: Present Reg Rate and Rhythm GI: Present soft and normal bowel sounds; Absent distention or tenderness Extremities: Present normal inspection and full ROM Skin: Present intact; Absent erythema Neuro: Present Grossly Intact, alert, awake, oriented x 3 and moves all extremities Assessment and Plan *Assessment and plan (1) Generalized weakness: Status: Acute Category: Medical Code(s): R53.1 - Weakness (2) Alcohol withdrawal: Status: Acute Category: Medical Code(s): F10.939 - Alcohol use, unspecified with withdrawal, unspecified (3) Hypomagnesemia: Status: Acute Category: Medical Code(s): E83.42 - Hypomagnesemia (4) Protein calorie malnutrition: Status: Acute Category: Medical Code(s): E46 - Unspecified protein-calorie malnutrition (5) Seizure disorder: Status: Chronic Category: Medical Code(s): G40.909 - Epilepsy, unspecified, not intractable, without status epilepticus (6) Hypertension: Status: Chronic Category: Medical Code(s): I10 - Essential (primary) hypertension (7) History of subdural hematoma: Status: Acute Category: Medical Code(s): Z86.79 - Personal history of other diseases of the circulatory system Plan 59-year-old male with history of alcoholism. Last drink a week ago. Presents with generalized weakness and inability to care for self. Found to have low magnesium at 1.2. Discussed case with ER provider, request admission for electrolyte replacement and evaluation/continue to work with therapy. Patient would benefit from placement. Therapy working with patient. Case management assisting with placement recommendations. Problems addressed as follows: Weakness Hypomagnesemia - Generalized weakness, unable to ambulate without frequent falls. Gets around with a walker at home at baseline. Evaluated by therapy in the ER, unable to go home safely. Recommend placement. Case management to assist in the morning - Potassium normal at 3.9. Kidney function stable BUN 14, creatinine 0.7. Phosphorus normal at 3.3. Lab holiday in the morning. - He will proved at 13. White count 5.2. - Continue daily multivitamin Alcohol dependence: dairy management specialist consulted to assist with outpatient rehab. No significant withdrawal symptoms. Continue to monitor. Seizure precautions. Hypertension: - Blood pressure 160/80 this morning. Continue home regimen of metoprolol tartrate 25 mg twice daily, amlodipine 5 mg daily. Reported seizure disorder but not on any antiepileptics at this time. Continue seizure precautions. Low threshold to initiate Keppra Hyperlipidemia: Continue home Lipitor 10 mg daily Full code Holding anticoagulation with recent subdural hematoma Regular diet
[2025-02-06] MEDS: PRENATAL MULTIVITAMIN W/IRON 1 EACH PO (16:53)
--- NOTE | 2025-02-06 17:57 | PC.NURSE ---
report called Carlos on Med surge patient going to room 204
[2025-02-06] MEDS: ATORVASTATIN 10 MG PO (21:09)
[2025-02-06] MEDS: PANTOPRAZOLE 40MG TABLET 40 MG PO (21:09)
[2025-02-07] VITALS (9 sets, daily range): BP systolic 126–199; BP diastolic 68–149; PULSE 50–87; RESP 16–20; TEMP 36.9–37.2; O2SAT 97–100; BMI 20.9
--- NOTE | 2025-02-07 04:50 | PC.NURSE ---
pt b/p was elevated documented 0447 and 0449. Spoke with Jenae Oden [employer] OFFBEARER told me to give the 9:00 dose of Norvasc early now for his B/P elevated. 199/149 at 0447 and 189/109 at 0449. MAGI FINN RN
[2025-02-07] MEDS: AMLODIPINE 5MG TABLET 5 MG PO (04:58)
--- NOTE | 2025-02-07 06:47 | PC.NURSE ---
PT is alert and oriented X4. full code, Pt is in seizure precautions, has a 20 gauge in the Right A/C.Pt has the Electrolyte protocol in place. Pt is on a Reg Diet. Pt has Placement and accepted to go to [facility]. MAGI FINN RN
[2025-02-07] MEDS: LISINOPRIL 10MG TABLET 10 MG PO (09:23)
[2025-02-07] MEDS: METOPROLOL TARTRATE 25MG TABLET 25 MG PO ×2 (09:23→20:09)
[2025-02-07] MEDS: THIAMINE 100MG TABLET 100 MG PO (09:23)
--- NOTE | 2025-02-07 09:33 | PC.NURSE ---
Pt. refused bed alarm and states he will call out when needing assistance.
--- NOTE | 2025-02-07 14:26 | PC.NURSE ---
Aox 4, up with assistance with a walker, on RA, 20g R FA SL, regular diet, consults to PT/OT/CM and mri specialist, placement to [facility].
--- NOTE | 2025-02-07 19:03 | P.PN_ITS ---
Subjective *Date: 02/07/25 *Time: 22:26 Interval history: No acute issues. Awaiting placement. Blood pressure elevated this morning at 189 systolic. Stable on room air. Denies any complaints Medical Exam Vital signs and Labs for Last 24 Hours: Vital Signs Temp Pulse Pulse Resp BP BP Pulse Ox 02/07/25 18:36 02/07/25 17:00 02/07/25 16:00 60 02/07/25 15:32 98.7 F 55 L 18 131/80 97 02/07/25 14:06 02/07/25 13:00 02/07/25 12:00 60 02/07/25 12:00 98.9 F 54 L 20 144/82 H 100 02/07/25 10:06 02/07/25 09:00 02/07/25 08:00 02/07/25 08:00 80 02/07/25 08:00 98.7 F 87 18 144/76 H 98 02/07/25 05:00 02/07/25 04:49 98.6 F 62 18 189/109 H 99 02/07/25 04:47 98.6 F 73 18 199/149 H 99 02/07/25 04:00 50 L 02/07/25 03:00 02/07/25 01:00 02/07/25 00:00 50 L 02/07/25 00:00 98.5 F 58 L 16 156/99 H 97 02/06/25 23:00 02/06/25 21:00 02/06/25 20:00 97 02/06/25 20:00 68 16 179/97 H 100 O2 Del Method 02/07/25 18:36 Room Air 02/07/25 17:00 Room Air 02/07/25 16:00 02/07/25 15:32 Room Air 02/07/25 14:06 Room Air 02/07/25 13:00 Room Air 02/07/25 12:00 02/07/25 12:00 Room Air 02/07/25 10:06 Room Air 02/07/25 09:00 Room Air 02/07/25 08:00 Room Air 02/07/25 08:00 02/07/25 08:00 Room Air 02/07/25 05:00 Room Air 02/07/25 04:49 Room Air 02/07/25 04:47 Room Air 02/07/25 04:00 02/07/25 03:00 Room Air 02/07/25 01:00 Room Air 02/07/25 00:00 02/07/25 00:00 Room Air 02/06/25 23:00 Room Air 02/06/25 21:00 Room Air 02/06/25 20:00 Room Air 02/06/25 20:00 Room Air Intake and Output 02/07/25 02/07/25 02/07/25 07:59 15:59 23:59 Intake Total 240 / 1745 1025 / 1745 480 / 1745 Output Total 0 / 0 0 / 0 Balance 240 / 1745 1025 / 1745 480 / 1745 Intake: Intake, Oral Amount 240 / 1745 1025 / 1745 480 / 1745 Output: Output, Urine Amount 0 / 0 0 / 0 Other: Number of Unmeasured Voids 1 0 1 Number of Bowel Movements 1 Weight 59.28 kg Patient Weight 02/07/25 23:59 Weight 59.28 kg I & O for Labs for Last 24 Hours: Intake & Output 02/04/25 02/05/25 02/06/25 02/07/25 23:59 23:59 23:59 23:59 Intake Total 1645 / 1645 1280 / 1280 1760 / 2000 1745 / 1745 Output Total 500 / 500 925 / 2325 2950 / 2950 0 / 0 Balance 1145 / 1145 355 / -1045 -1190 / -950 1745 / 1745 Weight 58.145 kg 58.24 kg 59.285 kg 59.28 kg Constitutional: Present no acute distress, thin, chronically ill appearing and cooperative Head: Present atraumatic and normocephalic Respiratory: Present normal respiratory effort; Absent rhonchi, wheezes or crackles Cardiac: Present Reg Rate and Rhythm GI: Present soft and normal bowel sounds; Absent distention or tenderness Extremities: Present normal inspection and full ROM Skin: Present intact; Absent erythema Neuro: Present Grossly Intact, alert, awake, oriented x 3 and moves all extremities Assessment and Plan *Assessment and plan (1) Generalized weakness: Status: Acute Category: Medical Code(s): R53.1 - Weakness (2) Alcohol withdrawal: Status: Acute Category: Medical Code(s): F10.939 - Alcohol use, unspecified with withdrawal, unspecified (3) Hypomagnesemia: Status: Acute Category: Medical Code(s): E83.42 - Hypomagnesemia (4) Protein calorie malnutrition: Status: Acute Category: Medical Code(s): E46 - Unspecified protein-calorie malnutrition (5) Seizure disorder: Status: Chronic Category: Medical Code(s): G40.909 - Epilepsy, unspecified, not intractable, without status epilepticus (6) Hypertension: Status: Chronic Category: Medical Code(s): I10 - Essential (primary) hypertension (7) History of subdural hematoma: Status: Acute Category: Medical Code(s): Z86.79 - Personal history of other diseases of the circulatory system Plan 59-year-old male with history of alcoholism. Last drink a week ago. Presents with generalized weakness and inability to care for self. Found to have low magnesium at 1.2. Discussed case with ER provider, request admission for electrolyte replacement and evaluation/continue to work with therapy. Patient would benefit from placement. Therapy working with patient. Case management assisting with placement recommendations. Problems addressed as follows: Weakness Hypomagnesemia - Generalized weakness, unable to ambulate without frequent falls. Gets around with a walker at home at baseline. Evaluated by therapy in the ER, unable to go home safely. Recommend placement. Case management to assist in the morning - Lab holiday today. Repeat CBC, CMP, magnesium ordered for the morning - Continue multivitamin Alcohol dependence: end user support specialist consulted to assist with outpatient rehab. No significant withdrawal symptoms. Continue to monitor. Seizure precautions. Hypertension: Blood pressure increasing, systolic 189 this morning. Continue home regimen of metoprolol tartrate 25 mg twice daily, amlodipine 5 mg daily, initiate lisinopril 10 mg daily. Goal during admission blood pressure less than 140/90 Reported seizure disorder but not on any antiepileptics at this time. Continue seizure precautions. Low threshold to initiate Keppra Hyperlipidemia: Continue home Lipitor 10 mg daily Full code Holding anticoagulation with recent subdural hematoma Regular diet
[2025-02-07] MEDS: PANTOPRAZOLE 40MG TABLET 40 MG PO (20:08)
[2025-02-07] MEDS: ATORVASTATIN 10 MG PO (20:08)
[2025-02-08] VITALS: BP 135/81; PULSE 50; PULSE 59; RESP 16; TEMP 36.9; O2SAT 97
[2025-02-08 04:00] VITALS: BP 123/76; PULSE 40; PULSE 53; RESP 16; TEMP 36.7; O2SAT 100; BMI 21.2
[2025-02-08 06:34] LABS: Hematocrit 35.4 % (42.0-52.0); Hemoglobin 11.8 g/dL (14.1-18.0); Immature Granulocytes % 0.2 %; Mean Corpuscular HGB Conc 33.3 g/dL (31.8-35.4); Mean Corpuscular Hemoglobin 33.7 pg (27.0-31.2); Mean Corpuscular Volume 101.1 fl (80-94); Nucleated Red Blood Cells % 0 %; Platelet Count 101 K/mm3 (142-424); Red Blood Count 3.50 M/mm3 (4.60-6.20); Red Cell Distribution Width-SD 50.6 fL; White Blood Count 5.0 K/mm3 (4.8-10.8)
[2025-02-08 06:43] LABS: Chloride 101 mmol/L (98-107)
[2025-02-08 06:44] LABS: Potassium 3.9 mmoL/L (3.5-5.1); Sodium 135 mmol/L (136-145)
[2025-02-08 06:46] LABS: Blood Urea Nitrogen 22 mg/dl (9-20); Creatinine Clearance Estimated 75 mL/min (50-200); Creatinine,Serum 0.90 mg/dl (0.66-1.25); Estimated Glomerular Filt Rate 86 ml/min (>60); GFR (African American) 105 ML/MIN (>60)
[2025-02-08 06:47] LABS: Anion Gap 11.9 mEq/L (5-15); Calcium 8.6 mg/dl (8.4-10.2); Carbon Dioxide 26 mmol/L (22.0-30.0); Glucose 97 mg/dl (74-100)
[2025-02-08 07:36] VITALS: BMI 21.2
[2025-02-08 07:54] VITALS: BP 121/75; PULSE 77; RESP 16; TEMP 36.5; O2SAT 97
[2025-02-08 08:00] VITALS: PULSE 74
[2025-02-08] MEDS: LISINOPRIL 10MG TABLET 10 MG PO (08:12)
[2025-02-08] MEDS: THIAMINE 100MG TABLET 100 MG PO (08:12)
[2025-02-08] MEDS: METOPROLOL TARTRATE 25MG TABLET 25 MG PO (08:16)
[2025-02-08] MEDS: AMLODIPINE 5MG TABLET 5 MG PO (08:16)
--- NOTE | 2025-02-08 09:04 | P.DS_ITS ---
<Statement entered by Bruno Rousseau MD - 02/08/25 14:10> Rounded on patient after nurse practitioner. Personally examined and interviewed patient. Agree with exam findings and care plan as documented. General Admission date:: 02/04/25 Discharge date: 02/08/25 HPI HPI HPI: Mr. Douglas is a 59-year-old male who presents to the ER via EMS with complaint of weakness. Having headaches and difficulty walking for the past week. He was seen last weekend at [facility] after a fall. Of note had a fall a month ago where he sustained a subdural hematoma. Was treated at a hospital in [place] and discharged to rehab for a brief period of time. Has been back home and having general weakness and difficulty ambulating. Drinks alcohol daily up until a week ago. Denies any vodka in the past 5 days. Has had seizures in the past but nothing in the past week only has tremors at this time. Denies nausea or vomiting, chest pain, shortness of breath, diarrhea or constipation. Alert and oriented x 4. On workup in the ER, found to have magnesium of 1.2 and generalized weakness. Therapy evaluated, patient not safe or stable to go home. Medicine consulted for admission and further management. After arriving to the floor, patient is hemodynamically stable but has general tremor. Otherwise alert and oriented x 4. Able to answer questions appropriately. Globally weak. Hospital Course Hospital Course Hospital Course: 59-year-old male with history of alcoholism. Last drink on 01/29/2025. presents with generalized weakness and inability to care for self. Found to have low magnesium at 1.2, replaced. Discussed case with ER provider, request admission for electrolyte replacement and evaluation/continue to work with therapy. Therapy originally recommended placement but as patient medically stabilized he was able to ambulate with rolling walker more than 200 feet independently in the halls. Therapy states patient is safe to go home with home health services. Problems addressed as follows: #Weakness #Hypomagnesemia ?Patient exhibiting improved global weakness, able to ambulate independently with rolling walker. Uses a walker at home at baseline. PT/OT recommendations for home health services at discharge, patient agreeable. ?Patient labs stable day of discharge, no leukocytosis, very slight anemia hemoglobin 11.8, no electrolyte abnormalities noted, kidney function within normal limits. ?Will continue daily folate and multivitamin at discharge. #Alcohol dependence: ?retail pos specialist consulted to assist with outpatient rehab. No significant withdrawal symptoms. Patient does have resting tremor. Not requiring medication at this time for withdrawal. No seizure-like activity noted. Patient will continue to discuss outpatient rehab services with peers support. Patient has an apt with [facility] in [place], [place] tomorrow, 02/09/2025 at 10 AM. ?Will prescribe pantoprazole 40 mg at bedtime at discharge for GI benefit. #Hypertension: ?Blood pressure significantly improved with additional medications prescribed during admission. Will continue metoprolol tartrate 25 mg twice daily, amlodipine 5 mg daily, and initiate lisinopril 10 mg daily. Blood pressure day of discharge 121/75. #Reported seizure disorder but not on any antiepileptics at this time. Patient has exhibited no seizure-like activity during the admission. #Hyperlipidemia: Continue home Lipitor 10 mg daily. #Tobacco use disorder: Discussed making cessation with patient, he states he smokes very little. Will prescribe nicotine patches as needed at discharge. #Calorie protein malnutrition: Patient meets for caloric protein malnutrition, nutrition recommendations to increase protein with boost/Ensure drinks. Handouts given on high-calorie/high-protein foods nutrition. Total time spent on discharge 32 minutes in counseling, documentation, chart review, and direct care with patient. Exam Data for Last 24 hours Vital signs and Labs for Last 24 Hours: Temp Pulse Resp BP Pulse Ox O2 Del Method 97.7 F 74 16 121/75 97 Room Air 02/08/25 07:54 02/08/25 08:00 02/08/25 07:54 02/08/25 07:54 02/08/25 07:54 02/08/25 08:00 Laboratory Results - last 24 hr 02/08/25 05:25: WBC 5.0, RBC 3.50 L, Hgb 11.8 L, Hct 35.4 L, MCV 101.1 H, MCH 33.7 H, MCHC 33.3, RDW 13.6, Plt Count 101 L, MPV 10.4, Neut % (Auto) 59.8, Lymph % (Auto) 24.2, Coles % (Auto) 9.2, Eos % (Auto) 5.8, Baso % (Auto) 0.8, Neut # (Auto) 3.0, Lymph # (Auto) 1.2, Coles # (Auto) 0.5, Eos # (Auto) 0.3, Baso # (Auto) 0.0, Sodium 135 L, Potassium 3.9, Chloride 101, Carbon Dioxide 26, Anion Gap 11.9, BUN 22 H D, Creatinine 0.90 D, Estimated Creat Clear 75, Estimated GFR 86, Est GFR ( Amer) 105 D, Glucose 97, Calcium 8.6 I & O for Last 24 hours: Intake & Output 02/05/25 02/06/25 02/07/25 02/08/25 23:59 23:59 23:59 23:59 Intake Total 1280 / 1280 1760 / 2000 1744 1500 / 1500 Output Total 925 / 2325 2950 / 2950 0 / 0 0 / 0 Balance 355 / -1045 -1190 / -950 1744 1500 / 1500 Weight 58.24 kg 59.285 kg 59.28 kg 59.738 kg Constitutional Constitutional: no acute distress, average body habitus and cooperative *Routine HEENT Exam Head: Present normocephalic Eye: Present EOMI ENT: Present mucous membranes moist *Routine Neck Exam Neck: Present supple and full ROM *Routine Respiratory Exam Respiratory: Present CTA bilaterally, normal respiratory effort, able to speak in complete sentences and symmetric chest movement; Absent wheezes or crackles *Routine Cardiovascular Exam Cardiovascular: Present RRR, Normal S1 and Normal S2; Absent murmur *Routine Abdominal Exam Abdominal: Present soft and normoactive bowel sounds; Absent tenderness or distended *Routine Rectal Exam Patient deferred: visual exam *Routine Exam Patient deferred: penile exam *Routine Extremities Exam Extremities: Present full ROM and pulses intact; Absent clubbing or edema *Routine Skin Exam Skin: Present dry; Absent erythema or rash Comments: Scattered abrasions and bruising *Routine Neurological Exam Neurological: Present alert, oriented X3, vision grossly intact, hearing grossly intact, normal speech and tremors (Resting) Results Data Completed and Pending Labs on day of discharge: Labs from last 24 hours 02/08/25 05:25 WBC 5.0 RBC 3.50 L Hgb 11.8 L Hct 35.4 L MCV 101.1 H MCH 33.7 H MCHC 33.3 RDW 13.6 Plt Count 101 L MPV 10.4 Neut % (Auto) 59.8 Lymph % (Auto) 24.2 Coles % (Auto) 9.2 Eos % (Auto) 5.8 Baso % (Auto) 0.8 Neut # (Auto) 3.0 Lymph # (Auto) 1.2 Coles # (Auto) 0.5 Eos # (Auto) 0.3 Baso # (Auto) 0.0 Sodium 135 L Potassium 3.9 Chloride 101 Carbon Dioxide 26 Anion Gap 11.9 BUN 22 H D Creatinine 0.90 D Estimated Creat Clear 75 Estimated GFR 86 Est GFR ( Amer) 105 D Glucose 97 Calcium 8.6 DS: Diagnosis Discharge Diagnosis (1) Generalized weakness: Status: Acute Code(s): R53.1 - Weakness (2) Alcohol withdrawal: Status: Acute Code(s): F10.939 - Alcohol use, unspecified with withdrawal, unspecified (3) Hypomagnesemia: Status: Acute Code(s): E83.42 - Hypomagnesemia (4) Protein calorie malnutrition: Status: Acute Code(s): E46 - Unspecified protein-calorie malnutrition (5) Seizure disorder: Status: Chronic Code(s): G40.909 - Epilepsy, unspecified, not intractable, without status epilepticus (6) Hypertension: Status: Chronic Code(s): I10 - Essential (primary) hypertension (7) History of subdural hematoma: Status: Acute Code(s): Z86.79 - Personal history of other diseases of the circulatory system Meds Home Medications and Allergies Home Medications ?Medication ?Instructions ?Recorded ?Confirmed ?Type atorvastatin 10 mg tablet 10 mg PO HS 02/04/25 5 History crvrbtyqqf-htmrfetdowbhq-wrjwjuyv 1 tab PO TIDP PRN He adache 02/04/25 02/04/25 History 50 mg-325 mg-40 mg tablet metoprolol tartrate 25 mg tablet 25 mg PO BID 02/04/25 02/04/25 History trazodone 50 mg tablet 50 mg PO HSP PRN Insomnia 02/05/25 History amlodipine 5 mg tablet 5 mg PO DAILY 30 days #30 ta bs 02/08/25 Rx atorvastatin 10 mg tablet 10 mg PO HS 30 days #30 tabs 02/08/25 Rx lisinopril 10 mg tablet 10 mg PO DAILY 30 days #30 t abs 02/08/25 Rx multivitamin-ferrous 1 tab PO DAILY #30 tabs 01/21 Rx fumarate-folic acid 18 mg-400 mcg tablet (Multi Complete with Iron) nicotine 21 mg/24 hr daily 21 mg transdermal DAILYP [place] N 02/08/25 Rx transdermal patch Nicotine Cravings 28 days #2 8 ea pantoprazole 40 mg tablet,delayed 40 mg PO HS 30 days #30 tabs 02/08/25 Rx release thiamine HCl (vitamin B1) 100 mg 100 mg PO DAILY #30 c aps 02/08/25 Rx capsule New Prescriptions to Start Prescriptions: amlodipine Helena Gaines atorvastatin Eder,Helena lisinopril Helena Gaines cnouidlsnyoh-qije-rahkk acid [Multi Complete with Iron] Helena Gaines nicotine Eder,Helena pantoprazole Helena Gaines thiamine HCl (vitamin B1) Helena Gaines Allergies Allergy/AdvReac Type Severity Reaction Status Date / Time No Known Allergies Allergy Verified 02/04/25 17:28 Discharge Plan Disposition Patient Disposition: Home Health Service Condition: Fair Discharge Order Discharge Orders: Discharge Order (Routine); Ordered 02/08/25 Ordered By: Helena Gaines Follow up Plan Follow up with: Maribell Vee PA [Referring, Medical] - 02/15/25 1:30 pm Loreto Lorenzo [Client Onboarding Analyst, Peer Support] - Enter time for follow up Prescriptions/Medication Reconciliation: New atorvastatin 10 mg Tablet 10 mg PO HS 30 Days Qty: 30 0RF amlodipine 5 mg Tablet 5 mg PO DAILY 30 Days Qty: 30 0RF pantoprazole 40 mg Tablet,Delayed Release (Dr/Ec) 40 mg PO HS 30 Days Qty: 30 0RF lisinopril 10 mg Tablet 10 mg PO DAILY 30 Days Qty: 30 0RF nicotine 21 mg/24 hr Patch 24 Hour 21 mg transdermal DAILYP PRN (Reason: Nicotine Cravings) 28 Days Qty: 28 0RF Multi Complete with Iron 18-400 mg-mcg tablet 1 tab PO DAILY Qty: 30 0RF thiamine HCl (vitamin B1) 100 mg capsule 100 mg PO DAILY Qty: 30 0RF Continued trazodone 50 mg Tablet 50 mg PO HSP PRN (Reason: Insomnia) atorvastatin 10 mg Tablet 10 mg PO HS oncumhlxim-hpwuyiidiungv-pcxv 50-325-40 mg Tablet 1 tab PO TIDP PRN (Reason: Headache) metoprolol tartrate 25 mg Tablet 25 mg PO BID Discontinued amlodipine 2.5 mg Tablet 2.5 mg PO DAILY Problem Reconciliation Problems Reviewed?: Yes Patient Discharge Instructions ACTIVITY: Ambulate as tolerated and Up with assistance DIET: continue same diet Additional Instructions: Apt with [facility] in [place], [place] tomorrow, Saturday02/09/2025 at 10 AM. Patient Instructions: Alcohol and Stress: There are Safer Ways to [place], DI for High Blood Pressure, NCM High-Calorie High-Protein Diet, WM High Calorie High Protein Diet Recipes Print Language: Faroese Providers Primary Care Provider: Provider,Referral Admit Provider: Bruno Rousseau Attending Provider: Bruno Rousseau
--- NOTE | 2025-02-09 10:21 | SW/DCPLANNER ---
Spoke with patient on the phone. patient stated that he is doing good. Patient stated that he is aware of his upcoming appointment. Patient stated that he was able to get his medicine picked up. Patient stated that he has no concerns or questions at this time. Abby Mcnamara
== END 2025-02-08 12:45 | disposition home health service (06) ==
LOC: ER 16:21 → ICU 16:22 → 2ND 02-06 17:33
PROVIDERS: Nurse Practitioner Family; Admitting Provider Internal Medicine Adolescent Medicine; Emergency Provider Student in an Organized Health Care Education/Training Program; Visit Provider Internal Medicine Adolescent Medicine
DX: F10.939 Alcohol use, unspecified with withdrawal, unspecified (principal); E83.42 Hypomagnesemia; E46 Unspecified protein-calorie malnutrition; G40.909 Epilepsy, unspecified, not intractable, without status epilepticus; I10 Essential (primary) hypertension; E78.5 Hyperlipidemia, unspecified; I48.91 Unspecified atrial fibrillation; K21.9 Gastro-esophageal reflux disease without esophagitis; F17.200 Nicotine dependence, unspecified, uncomplicated; R25.1 Tremor, unspecified; Z86.73 Personal history of transient ischemic attack (TIA), and cerebral infarction without residual deficits; Z86.79 Personal history of other diseases of the circulatory system; Z79.899 Other long term (current) drug therapy; Z68.21 Body mass index [BMI] 21.0-21.9, adult
CPT/HCPCS: 36415; 70450; 71045; 73562; 80048; 80053; 80307; 80320; 81001; 82550; 83735; 84100; 84484; 85025; 87086; 93005; 96365; 96366; 96367; 96375; 97110; 97116; 97530; 99284; G0378; J1885; J3411; J3475; J7120